=== PATIENT | female | born 1955 | race Caucasian/White ===

== ENCOUNTER 2024-01-14 14:10 | Outpatient (OUT) | payer MEDICARE, SELFPAY ==
--- NOTE | 2024-01-14 | XR_ITS ---
The [address] [address] Patient Name: JASON DE LA ROSA MRN: [id number] date: 1955 Sex: F Assigned Patient Location: [facility] Current Patient Location: Accession/Order Number: [id number] Exam Date: 01/14/2024 14:30 Report Date: 01/17/2024 07:44 At the request of: BRENDA DONG Procedure: XR chest 2V EXAMINATION: XR chest 2V HISTORY: Acute bronchitis, unspecified organism COMPARISON: No relevant comparison available. TECHNIQUE: PA and lateral FINDINGS: LUNGS: Focal 5.5 cm area of density in the right upper lung zone with some architectural distortion. The left lung is clear VASCULATURE: No increased pulmonary vasculature. PLEURA: No pneumothorax, effusion, or pleural thickening. CARDIAC: No cardiomegaly or cardiac silhouette abnormality. MEDIASTINUM: No visible mass or adenopathy. BONES: No fracture or visible bone lesion. OTHER: Negative. XR/XR chest 2V IMPRESSION: Focal right upper lobe infiltrate. In light of the architecture distortion, consider CT scan with contrast to evaluate for an underlying mass Electronically authenticated by: JOAQUIM CHAN Date: 01/17/2024 07:44
== END 2024-01-14 14:11 | disposition home or self-care (01) ==
PROVIDERS: PCP Family Medicine; Visit Provider Family Medicine
DX: J20.9 Acute bronchitis, unspecified (principal); R91.8 Other nonspecific abnormal finding of lung field
CPT/HCPCS: 71046

== ENCOUNTER 2024-02-04 08:51 | Outpatient (OUT) | payer MEDICARE, SELFPAY ==
--- NOTE | 2024-02-04 08:59 | CT_ITS ---
[address] [address] Patient Name: JASON DE LA ROSA MRN: [id number] date: 1955 Sex: F Assigned Patient Location: LAB Current Patient Location: Accession/Order Number: [id number] Exam Date: 02/04/2024 09:10 Report Date: 02/07/2024 07:54 At the request of: BRENDA DONG Procedure: CT chest w con EXAMINATION: CT chest w con HISTORY: Abnormal Chest Xray R93.89 COMPARISON: 03/15/2024 TECHNIQUE: Multi-planar CT images were created with IV contrast. Axial, Coronal, and Sagittal images. Dose reduction techniques were achieved by using automated exposure control and/or adjustment of mA and/or kV according to patient size and/or use of iterative reconstruction technique. FINDINGS: LUNGS: Irregularly shaped soft tissue density/mass is observed in the right upper lobe this measures 5.8 x 6.2 cm on axial image #33, irregularly-shaped extending from the superior hilum to the pleural surface. Additional areas of groundglass attenuation surrounding this density. 1.4 cm groundglass opacity superior segment of the left lower lobe. Additional 6 mm solid nodule right lower lobe axial image 67. Few scattered smaller patchy opacities are noted. PLEURA: No mass, effusion, or pneumothorax. VASCULATURE: No abnormality. HARRISON: Right hilar lymphadenopathy MEDIASTINUM: Pretracheal and subcarinal lymphadenopathy CARDIAC: No enlargement or pericardial effusion Coronary arteries: Moderate calcifications AORTA: No aneurysm or dissection. CHEST WALL: No mass or axillary adenopathy. BONES: No bone lesion or fracture. LIMITED ABDOMEN: No suspicious findings. Limited images of the upper abdomen. OTHER: Negative. CT/CT chest w con IMPRESSION: 6.2 cm irregularly shaped right upper lobe mass with mediastinal and hilar lymphadenopathy. Additional patchy and nodular densities detailed above. Malignancy should be excluded Electronically authenticated by: JOAQUIM CHAN Date: 02/07/2024 07:54
[2024-02-04 09:08] LABS: Estimated GFR (African America >60 (>=60); Estimated GFR (Non-African Ame >60 (>=60)
== END 2024-02-04 08:52 | disposition home or self-care (01) ==
LOC: LAB 08:51
PROVIDERS: PCP Family Medicine; Visit Provider Family Medicine
DX: R93.89 Abnormal findings on diagnostic imaging of other specified body structures (principal); R91.8 Other nonspecific abnormal finding of lung field
CPT/HCPCS: 36415; 71260; 82565; Q9967

== ENCOUNTER 2024-02-10 07:52 | Outpatient (OUT) | payer MEDICARE, SELFPAY ==
--- NOTE | 2024-02-10 08:02 | ECG_ITS ---
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
== END 2024-02-10 07:53 | disposition home or self-care (01) ==
LOC: PST 07:54
PROVIDERS: PCP Family Medicine; Visit Provider Internal Medicine
DX: Z01.810 Encounter for preprocedural cardiovascular examination (principal); R91.8 Other nonspecific abnormal finding of lung field
CPT/HCPCS: 93005

== ENCOUNTER 2024-02-15 10:51 | Day surgery (SDC) | payer MEDICARE, SELFPAY ==
[2024-02-10 08:47] VITALS: BP 131/79; PULSE 68; TEMP 36.4; O2SAT 97; BMI 27.1
[2024-02-15] VITALS (12 sets, daily range): BP systolic 133–164; BP diastolic 84–96; PULSE 84–101; TEMP 36.5–36.8; O2SAT 92–97; BMI 27.1
[2024-02-15] MEDS: LACTATED RINGER'S SOLUTION 1,000 ML 50 ML IV (11:27)
[2024-02-15] MEDS: EPINEPHrine 1 MG/10 ML SYRINGE INJ (12:35)
[2024-02-15] MEDS: LIDOCAINE HCL 1% 100 MG/10 ML MDV 5 ML INJ (12:35)
--- NOTE | 2024-02-15 12:55 | XR_ITS ---
The [address] [address] Patient Name: JASON DE LA ROSA MRN: [id number] date: 1955 Sex: F Assigned Patient Location: [facility] Current Patient Location: [facility] Accession/Order Number: [id number] Exam Date: 02/15/2024 13:07 Report Date: 02/15/2024 13:24 At the request of: MICHELLE GUTIERREZ Procedure: XR chest 1V EXAMINATION: XR chest 1V HISTORY: Right lung mass, s/p bronchoscopy with biopsies COMPARISON: XR chest 01/14/2024 FINDINGS: LUNGS: Stable masslike opacity within lateral right upper lobe with new mild surrounding haziness/edema. Left lung is clear. VASCULATURE: No increased pulmonary vasculature. PLEURA: No pneumothorax, effusion, or pleural thickening. CARDIAC: No cardiomegaly or cardiac silhouette abnormality. MEDIASTINUM: No visible mass or adenopathy. BONES: No fracture or visible bone lesion. OTHER: Negative. XR/XR chest 1V IMPRESSION: 1. Right upper lobe mass with suspected mild adjacent pulmonary edema versus atelectasis versus blood products. 2. No pneumothorax. Electronically authenticated by: CARIE VELÁZQUEZ Date: 02/15/2024 13:24
--- NOTE | 2024-02-15 12:57 | P.ON_ITS ---
Date of procedure: 02/15/24 Procedure: Procedure Flexible diagnostic bronchoscopy with bronchoalveolar lavage and transbronchial & endobronchial biopsies Indication Right lung mass Findings Abnormal bronchial mucosa of the right upper lobe Anesthesia 1. General anesthesia - please see their records 2. Lidocaine 1% - 5mL Specimens 1. Bronchoalveolar lavage of the right upper lobe 2. Transbronchial & endobronchial biopsies of the right upper lobe Estimated blood loss 10mL Complications None Fluoroscopy time 8 seconds Description Informed consent was obtained after risks, benefits, and alternatives were discussed with the patient.? Time out was initiated to confirm the correct patient, site, and procedure with all present voicing in the affirmative. Patient was brought to the operating room suite where noninvasive monitoring was utilized.? Sedation & anesthesia were administered by the anesthesia department- please refer to their records for further information.? Tape was placed over the patient's eyes to prevent spillage of secretions.? A laryngeal mask airway was placed by anesthesia.? The vocal cords were observed without gross evidence of nodules, ulcers, or masses.? 5mL of 1% lidocaine were instilled topically to the vocal cords.? The bronchoscope was then passed between the vocal cords and advanced through the trachea without any gross tracheal lesions. The bronchoscope reached the distal trachea where an additional 5mL of 1% lidocaine were instilled topically to the main larisa.? The main larisa was sharp without splaying or evidence of underlying mass. An endotracheal tube was placed by anesthesia. Due to the endotracheal tube, the larynx, vocal cords, and proximal trachea were unable to be examined. The distal trachea was visualized without any gross tracheal lesions. 5mL of 1% lidocaine were instilled topically to the main larisa.? The main larisa was sharp without splaying or evidence of underlying mass. The bronchoscope was then advanced through the right main bronchus to the right upper lobe, where the apical, posterior, and anterior segments were visualized. The tissue appeared abnormal with wide subcarini.? The bronchoscope was advanced through the bronchus intermedius to the right middle lobe or the medial and lateral segments visualized.? The bronchoscope was then advanced to the right lower lobe superior, medial, anterior, lateral, and posterior basilar segments.? No other endobronchial lesions or abnormal mucosa were seen. The bronchoscope was retracted to the main larisa and advanced through the left main bronchus to the left upper lobe where the upper division apicoposterior and anterior, as well as lingular superior and inferior segments were visualized.? The bronchoscope was then advanced into the left lower lobe where the superior, anteromedial, lateral, and posterior basilar segments visualized.? No endobronchial lesions, exudate, or other abnormalities were noted. Next, the bronchoscope was repositioned into the right upper lobe. Utilizing fluoroscopy, a transbronchial biopsy was obtained from the apical segment of the right upper lobe. The biopsy site bled and continued to bleed despite performing suction tamponade after 5 minutes. Epinephrine 1:10,000 10mL was instilled to the apical segment, with bleeding eventually stopping. Due to the extent of bleeding outside my direct line of site with the bronchoscope, no further transbronchial biopsies were attempted. An endobronchial biopsy of the right upper lobe subcarina was obtained - this site bleed as well. This area did respond to suction tamponade and bleeding ceased without need for further medication. Last, the posterior segment was better visualized with a sub- subcarina appearing widened and white (not pink). This area did not bleed. This area was observed for several minutes without any further bleeding. The bronchoscope was withdrawn.? Patient tolerated procedure well. The family was updated on her condition. A post-procedural chest x-ray was obtained to evaluate for any postoperative pneumothorax - the radiologist interpretation is pending at the time of this note. Surgeon: Vj Glass Condition: stable Disposition: same day
== END 2024-02-15 13:53 | disposition home or self-care (01) ==
PROVIDERS: PCP Family Medicine; Visit Provider Internal Medicine
PROC: (CPT 31624; principal; 2024-02-15 12:00)
DX: C34.11 Malignant neoplasm of upper lobe, right bronchus or lung (principal); R91.8 Other nonspecific abnormal finding of lung field; Z90.710 Acquired absence of both cervix and uterus
CPT/HCPCS: 31624; 31628; 71045; 76000; 88112; 88305; 88341; 88342; 99999; J0171; J1100; J1805; J2250; J2405; J2704

== ENCOUNTER 2024-02-18 12:48 | Outpatient (OUT) | payer MEDICARE, SELFPAY ==
--- NOTE | 2024-02-18 13:00 | RT_ITS ---
The [facility] Test Date: 2024-02-18 Pat Name: JASON DE LA ROSA Department: Room: - Gender: Female Napper Fixer: Ernestina Santana RRT : 1955 Requested By: Vj Glass Order Number: [id number] Reading MD: jV Glass Interpretive Statements Pulmonary function testing was completed according to ATS criteria. Findings were considered accurate and reproducible. Both pre- and post-bronchodilator values utilized for spirometry. Spirometry (based on pre-bronchodilator values): -FEV1/FVC: Low normal @ 73% -FEV1: Normal @ 98% -FVC: Normal @ 101% -TQW34-51%: Low normal @ 83% -There is no significant bronchodilator response. Lung volumes by plethysmography (based on pre-bronchodilator values): -RV: Increased @ 160% -TLC: Increased @ 126% Diffusion capacity: -DLCO: Normal @ 109% when corrected for Hb 13.3g/dL Flow-volume loop: -'Scooping/coving' of the expiratory limb Impressions: -Technically normal spirometry though it trends towards mild obstruction. An elevated RV and TLC suggest air trapping and hyperinflation respectively. The diffusion capacity is normal. Overall testing suggests a mild obstructive lung disease. Clinical correlation required. Electronically Signed On 02-23-2024 16:50:21 EDT by Vj Glass
[2024-02-18 13:03] LABS: Hemoglobin 13.3 g/dL (12.0-16.0)
[2024-02-18] MEDS: ALBUTEROL SULFATE 2.5 MG/3 ML VIAL NEB IH (13:56)
== END 2024-02-18 12:49 | disposition home or self-care (01) ==
LOC: CARD 12:49
PROVIDERS: PCP Family Medicine; Visit Provider Internal Medicine
DX: R91.8 Other nonspecific abnormal finding of lung field (principal)
CPT/HCPCS: 36415; 85018; 94060; 94726; 94729

== ENCOUNTER 2024-03-06 15:10 | Outpatient (OUT) | payer MEDICARE, SELFPAY ==
--- NOTE | 2024-03-06 15:14 | PE_ITS ---
The [address] [address] Patient Name: JASON DE LA ROSA MRN: [id number] date: 1955 Sex: F Assigned Patient Location: [facility] Current Patient Location: [facility] Accession/Order Number: [id number] Exam Date: 03/06/2024 15:00 Report Date: 03/09/2024 23:12 At the request of: MICHELLE GUTIERREZ Procedure: PET skull to mid thigh PET/CT: HISTORY: Lung cancer. COMPARISON: CT chest 02/04/2024. TECHNIQUE: The patient was injected with 11.35 mCi of F-18 fluorodeoxyglucose (FDG), and an emission scan was performed from the base of the skull to the mid thigh. Noncontrast CT was performed for attenuation correction and anatomic localization. The blood glucose level was 93 mg/dl. The uptake time was 51 minutes. FINDINGS: HEAD AND NECK: There is intense activity throughout the thyroid gland, image 57, SUV max 10.3 and the thyroid gland appears somewhat enlarged. There are a few small hypermetabolic right supraclavicular lymph nodes such as on image 59, SUV max 18.2 measuring 13 mm. CHEST: The SUVmax of the mediastinum = 3.0 using the patient's body weight as the normalization method. There is a hypermetabolic masslike opacity in the right upper lobe, image 78 with SUV max 9.8 measuring 5.3 x 4.8 cm. There is an area of more intense uptake in the superior aspect of the lesion on image 72 measuring 3.2 cm and the remainder of the opacity may be due to postobstructive atelectasis. Superior to the lesion there is also groundglass opacity with interlobular septal thickening which may be due to lymphangitic carcinomatosis. There is a groundglass nodule in the superior segment of the left lower lobe on image 82 measuring 10 mm with minimal uptake, SUV max 1.9 which is stable. A previously noted 6 mm right lower lobe pulmonary nodule is stable and below resolution limits of PET. There is also a stable left upper lobe nodule on image 86 measuring 3 mm. There are several hypermetabolic mediastinal and right hilar lymph nodes including for example a right paratracheal node on image 81 with SUV max 11.5 measuring 2.4 x 1.3 cm and a subcarinal node on image 93 with SUV max 10.5 measuring 2.4 x 1.3 cm. There is no definite hypermetabolic left hilar adenopathy. ABDOMEN AND PELVIS: There is a focus of increased activity in the right lobe of the liver on image 137 with SUV max 4.6. This corresponds to a hypodensity on CT measured at 5 mm. Otherwise physiologic distribution of activity. MUSCULOSKELETAL SYSTEM: Multiple hypermetabolic osseous lesions are seen in the cervical, thoracic and lumbar spine, right scapula, the ribs, sacrum, left iliac bone and right acetabulum. Index lesions include the left C2 vertebral body on image 60, SUV max 9 corresponding to a sclerotic lesion measuring 14 mm, the anterior L1 vertebral body on image 149, SUV max 12.6 measuring 1.7 x 0.9 cm and the sacrum on image 205 with SUV max 12.1 corresponding to a lytic lesion measuring 1.4 x 1.2 cm. PET/PET skull to mid thigh IMPRESSION: 1. Right upper lobe pulmonary malignancy with probable postobstructive atelectasis and adjacent lymphangitic carcinomatosis. 2. Right supraclavicular, mediastinal and right hilar kym metastases. 3. Multifocal osseous metastases. 4. Hypermetabolic focus in the right lobe of the liver consistent with a metastasis. 5. Minimally FDG avid groundglass nodule in the superior segment of the left lower lobe. This may be related to focal fibrosis, organizing pneumonia or malignancy such as adenocarcinoma. 6. Stable small additional pulmonary nodules which are below resolution limits of PET. 7. Enlarged thyroid gland with diffuse intense uptake which may be due to thyroiditis or Graves' disease. Electronically authenticated by: CARIE MAJANO Date: 03/09/2024 23:12
== END 2024-03-06 15:11 | disposition home or self-care (01) ==
LOC: PETCT 15:11
PROVIDERS: PCP Family Medicine; Visit Provider Internal Medicine
DX: R91.8 Other nonspecific abnormal finding of lung field (principal); R59.0 Localized enlarged lymph nodes; C34.11 Malignant neoplasm of upper lobe, right bronchus or lung
CPT/HCPCS: 78815; A9552

== ENCOUNTER 2024-03-14 07:25 | Outpatient (RCR) | payer MEDICARE, SELFPAY | END 2024-03-25 23:59 | disposition home or self-care (01) | LOC: HEMC 07:25 | PROVIDERS: PCP Family Medicine; Visit Provider Internal Medicine Hematology & Oncology | DX: C34.91 Malignant neoplasm of unspecified part of right bronchus or lung (principal); Z86.16 Personal history of COVID-19; C79.51 Secondary malignant neoplasm of bone; C77.9 Secondary and unspecified malignant neoplasm of lymph node, unspecified | CPT/HCPCS: G0463 ==

== ENCOUNTER 2024-03-16 12:01 | Outpatient (OUT) | payer MEDICARE, SELFPAY ==
--- OUTSIDE RECORDS SUMMARY | 2024-03-16 12:05 | XMS_ITS | CCD ---
Author Organization [facility] Care Team Providers Care Land Measurer Name Role Phone DR BRENDA DONG Primary Care Unavailable LETITIA, DR GUTIERREZ Admitting Unavailable LETITIA, DR GUTIERREZ Attending Unavailable LETITIA, DR GUTIERREZ Consulting Unavailable WEST, DR JOAQUIM Ashton Consulting Unavailable LETITIA, DR GUTIERREZ Primary Care Unavailable LETITIA, DR GUTIERREZ Admitting Unavailable LETITIA, DR GUTIERREZ Attending Unavailable LETITIA, DR GUTIERREZ Consulting Unavailable ZIEBER, DR CARIE Edwards Consulting Unavailable [facility], DO Zabala Attending Provider Quan [facility], Vj Attending Unavailable [facility], Vj Admitting Unavailable Problems Problem Classification Problem Date Documented Da te Episodic/Chronic Nonspecific chest pain (4 sources) Other chest pain; Translations: [OTHER CHEST PAIN] Onset: 06-10-2021 Episodic Superficial injury; contusion (4 sources) Contusion of left knee, sequela; Translations: [CONTUSION OF LEFT KNEE SEQUELA] Onset: 08-08-2021 Episodic Results Test Name Value Interpretation Reference Range Facil fredi Owusu 02-15-2024 L Specimen: [id number] Received: 02/16/24 Status: PEGGY Abreu Num: [id number] Spec Type: Surgical Subm Dr: Vj Glass DO Tissues: A Lung - Transbroncial Biopsy (RT UPPER LOBE MASS BX) Procedures: HE/2, Gross/Micro L4, CK5 6, CK20, CK 7, NAPSIN A, TTF1, p40 Age/ Patient Sex Location Account Attending Physician Isela De La Rosa 68/F LABELL [id number] Vj Glass DO SPEC NUM: [id number] RECD: 02/16/24 STATUS: PEGGY ABREU NUM: [id number] KIMBERLYN: 02/15/[address]: Vj Glass DO ENTERED: 02/16/[address]: Nadeem Nails SPEC TYPE: Surgical DEPT: [facility] ORDERED: HE/2, Gross/Micro L4, CK5 6, CK20, CK 7, NAPSIN A, TTF1, p40 ORDERED: HE/2, Gross/Micro L4, CK5 6, CK20, CK 7, NAPSIN A, TTF1, p40 Pathological Diagnosis Lesion, right lung, upper lobe, biopsy: Adenocarcinoma. Comment: Tumor cells are positive for cytokeratin 7 and Napsin, while being negative for cytokeratin 20, p40 and cytokeratin 5/6 immunostain. This immunoprofile is consistent with lung adenocarcinoma. Clinical correlation is required. Clinical Information Abnormal bronchial mucosa of the right upper lobe Gross Description Received in formalin labeled with the patient's name, date of and right upper lobe mass biopsy are 3 delicate meeks tissue fragments ranging from 0.4 x 0.1 x 0.1 cm to 0.3 x 0.1 x 0.1 cm, entirely submitted in A1. CPT Codes 98548 [id number] -------- -------- Specimen: [id number] Received: 02/16/24 Status: PEGGY Abreu Num: [id number] Spec Type: Surgical Subm Dr: Vj Glass DO Tissues: A Lung - Transbroncial Biopsy (RT UPPER LOBE MASS BX) Procedures: HE/2, Gross/Micro L4, CK5 6, CK20, CK 7, NAPSIN A, TTF1, p40 -------- Patient: Isela De La Rosa [id number] (Continued) -------- Signed (signature on file) Rom Garcia MD 02/23/241657 Normal [facility] L Specimen: [id number] Received: 02/16/24 Status: PEGGY Abreu Num: [id number] Spec Type: Cytology Subm Dr: Vj Glass DO Tissues: A [facility] ([facility]) Procedures: HE/2, Gross/Micro L4, Cyto Prepstain, PAPSTN Age/ Patient Sex Location Account Attending Physician Isela De La Rosa 68/F LABELL [id number] Vj Glass DO SPEC NUM: [id number] RECD: 02/16/24 STATUS: PEGGY ABREU NUM: [id number] KIMBERLYN: 02/15/24-[address]: Vj Glass DO ENTERED: 02/16/[address]: Jesu,Lab SPEC TYPE: Cytology DEPT: DENISSE SHI ENTERED BY: [id number] RECV BY: [id number] ORDERED: HE/2, Gross/Micro L4, Cyto Prepstain, PAPSTN ORDERED: HE/2, Gross/Micro L4, Cyto Prepstain, PAPSTN Pathological Diagnosis Right lung, bronchial washings: Negative for malignant cells. Clinical Information Right lung mass Gross Description Received fresh is 8 ml red cloudy unfixed fluid for cytology said to have been obtained as Right upper lobe lavage. ThinPrep and cell block preparations are prepared for microscopic examination.( KS/vt) CPT Codes 28091 -------- -------- Specimen: [id number] Received: 02/16/24 Status: PEGGY Lois Num: [id number] Spec Type: Cytology Subm Dr: Vj Glass DO Tissues: A ANGEL (JEAN CLAUDE) Procedures: HE/2, Gross/Micro L4, Cyto Prepstain, PAPSTN -------- Patient: JudIsela [id number] (Continued) -------- Signed (signature on file) Rom Garcia MD 02/23/24 1536 Normal [facility] NM STRESS/REST MULTIon 06-10 NM STRESS/REST MULTI Patient: ISELA DE LA ROSA Exam Date: 06/10/2021 : 1955 Gender:F Ordering : DR BRENDA DONG . Admission #: [id number] Family : Order #: [id number] CLICK HERE TO VIEW EXAM RADIOLOGY REPORT PROCEDURE: RADIONUCLIDE IMAGING STRESS/REST MULTI COMPARISON: None. INDICATIONS: Chest pain TECHNIQUE: Exam Description: Stress/Rest one day protocol gated SPECT Rest Imagin.7 mCi Tc-99m Cardiolite IV on 06/10/2021 Stress Imaging 32.1 mCi Tc-99m Cardiolite IV on 06/10/2021 Exercise Protocol: René Heart Rate (bpm): Rest: 68 Max: 134 PMHR: 86 Blood Pressure: Rest: 120/84 Max: 200/104 Exercise Time: Minutes: 5 Seconds: 59 Stage Reached: Stage: 2 Mets 7 Symptoms: none Rest and peak stress ECG findings were non-diagnostic and the exercise portion of the study was normal per attending physician Dr. Glass due to ST segment depression interolateral leads, but did not meet diagnostic criteria. For more details please see separate cardiac stress test report. FINDINGS: QUALITY OF STUDY: Excellent. PERFUSION DEFECT: None. LOCATION: N/A SIZE: N/A. SEVERITY: N/A. TYPE: N/A. WALL MOTION: Normal. LV SIZE: Normal. 64 mL. TID / TCD: None; 0.8 LVEF: Normal. Calculated EF 78%. SUMMARY: Myocardial perfusion imaging study is NORMAL. CONCLUSION: 1. No reversible ischemia 2. Nondiagnostic exercise test Dictated by: Joaquim Maravilla MD on 06/10/2021 at 12:58 Approved by: Joaqumi Maravilla MD on 06/10/2021 at 12:59 Normal [facility] Encounters Encounter Date Encounter Type Care Provider Facility Start: 02-15-2024 End: 02-15-2024 [facility] Vj Glass [facility] Work Phone: Start: 02-15-2024 End: 02-15-2024 Departed Referred DO Vj Glass [facility] Work Phone: [facility] Start: 08-08-2021 End: 08-09-[address] BRENDA DONG Facility:[facility] Start: 06-10-2021 End: 06-11-[address] BRENDA DONG Facility:[facility] Payers Date Payer Category Payer Self-pay 1958 Unknown [id number] 1955 Unknown [id number] 1955 Unknown [id number] Private Health Insurance [employer] Insurance [facility] [place] [id number] Social History Date Type Detail Facility Tobacco smoking stat [facility] Unknown if ever smoked [facility] Work Phone: Start: 1955 Sex Assigned At Female F [facility] Clinical Note 08-08-2021 Note Date & Type Note Facility 08-08-2021 Note PROCEDURE: XR KNEE L T 4V or > HISTORY: Contusion of left knee ; anterior knee and borges pain since falling 3 days ago COMPARISON: None. FINDINGS: BONES:No acute fracture or dislocation. Small-moderate periarticular degenerative osteophytes along all 3 compartments. Mild narrowing of the medial compartment. Small, separate corticated ossification adjacent the intercondylar spines of the tibial plateau. SOFT TISSUES:No visible soft tissue swelling. EFFUSION:None visible. OTHER: Negative. IMPRESSION: 1. No acute bone abnormality or joint effusion. 2. Mild to moderate degenerative joint disease. Electronically authenticated by: CARIE VELÁZQUEZ Date: 2021-08-08 14:54 [facility] Evaluation note Note Date & Type Note Facility Evaluation note No assessment information availa ble [facility] Work Phone: Summary Purpose Family History No Family History Records FoundNo Family History Records Found Advance Directives No Advanced Directives Records FoundNo Advanced Directives Records Found Additional Source Comments INFORMATION SOURCE (unrecogn ized section and content) DATE CREATED AUTHOR 08/13/2021 [facility] DATE CREATED AUTHOR AUTHOR'S PATRICIA ATLUIZA 02/26/[address] [facility] Care Teams (unrecognized sec tion and content) Team Status: Inactive Member Role Status Dates Vj CROWLEY DO Attending Provider Active Start: February 15, 2024 End: February 15, 2024 Goals (unrecognized section and content) Goals may be documented in a n alternate section FOR RECORDS PERTAINING TO PATIENTS WHO ARE OR HAVE BEEN ENROLLED IN A CHEMICAL DEPENDENCY/SUBSTANCEABUSE PROGRAM, SOME INFORMATION MAY BE OMITTED. This clinical summary was aggregated from multiple sources. Caution should be exercised in using it in the provision of clinical care. This summary normalizes information from multiple sources, and as a consequence, information in this document may materially change the coding, format and clinical context of patient data. In addition, data may be omitted in some cases. CLINICAL DECISIONS SHOULD BE BASED ON THE PRIMARY CLINICAL RECORDS. [employer] provides no warranty or guarantee of the accuracy or completeness of information in this document.
--- NOTE | 2024-03-16 12:19 | MR_ITS ---
The [address] [address] Patient Name: JASON DE LA ROSA MRN: [id number] date: 1955 Sex: F Assigned Patient Location: LAB Current Patient Location: LAB Accession/Order Number: [id number] Exam Date: 03/16/2024 12:40 Report Date: 03/16/2024 13:39 At the request of: MIYA ALAN Procedure: MR head/brain wo/w con EXAM: MR head/brain wo/w con CLINICAL INDICATION: Lung Cancer COMPARISON: FDG PET/CT 03/06/2024. TECHNIQUE/PROTOCOL: Standard pre and postcontrast protocol brain MRI performed (Sagittal T1 with axial T1, T2, GRE, FLAIR, and diffusion-weighted imaging). CONTRAST: 13 mL of Dotarem. FINDINGS: No restricted diffusion, extra-axial fluid collection, hydrocephalus, midline shift, or other mass effect. Intracranial flow voids are maintained. Subtle patchy hyperintense T2/FLAIR periventricular and subcortical foci are likely on the basis of chronic microvascular angiopathic changes. Mild symmetric global volume loss without lobar predominance. Commensurate ventricular system caliber prominence. No abnormal parenchymal, leptomeningeal, or dural enhancement. Peripherally enhancing marrow replacing osseous lesion involves the C3 vertebral body and measures approximately 1.0 x 1.0 cm. No soft tissue abnormalities. Paranasal sinuses and mastoid air cells are well-aerated. MR/MR head/brain wo/w con IMPRESSION: 1. No acute intracranial process or abnormal enhancement. No evidence of intracranial metastasis. 2. A 1.0 cm peripherally enhancing and marrow replacing osseous lesion in the C3 vertebral body most likely represents osseous metastasis. Electronically authenticated by: LORENZO JONES Date: 03/16/2024 13:39
[2024-03-16 12:33] LABS: Estimated GFR (African America >60 (>=60); Estimated GFR (Non-African Ame >60 (>=60)
== END 2024-03-16 12:02 | disposition home or self-care (01) ==
LOC: LAB 12:01
PROVIDERS: PCP Family Medicine; Visit Provider Internal Medicine Hematology & Oncology
DX: C34.91 Malignant neoplasm of unspecified part of right bronchus or lung (principal)
CPT/HCPCS: 36415; 70553; 82565; 84520; A9575

== ENCOUNTER 2024-04-03 10:59 | Outpatient (OUT) | payer MEDICARE, SELFPAY ==
--- OUTSIDE RECORDS SUMMARY | 2024-04-03 11:25 | XMS_ITS | CCD ---
Author Organization [facility] Care Team Providers Care Operations Controller Name Role Phone DR BRENDA DONG Primary Care Unavailable LETITIA, DR GUTIERREZ Admitting Unavailable LETITIA, DR GUTIERREZ Attending Unavailable LETITIA, DR GUTIERREZ Consulting Unavailable WEST, DR JOAQUIM Ashton Consulting Unavailable LETITIA, DR GUTIERREZ Primary Care Unavailable LETITIA, DR GUTIERREZ Admitting Unavailable LETITIA, DR GUTIERREZ Attending Unavailable LETITIA, DR GUTIERREZ Consulting Unavailable ZIEBER, DR CARIE Edwards Consulting Unavailable [place], DO Zabala Attending Provider Quan [facility], Vj Attending Unavailable [place], Vj Admitting Unavailable Problems Problem Classification Problem Date Documented Da te Episodic/Chronic Nonspecific chest pain (4 sources) Other chest pain; Translations: [OTHER CHEST PAIN] Onset: 06-10-2021 Episodic Superficial injury; contusion (4 sources) Contusion of left knee, sequela; Translations: [CONTUSION OF LEFT KNEE SEQUELA] Onset: 08-08-2021 Episodic Results Test Name Value Interpretation Reference Range Facil fredi Owusu 02-15-2024 L Specimen: [id number] Received: 02/16/24 Status: PEGGY Abreu Num: [id number] Spec Type: Surgical Subm Dr: Vj Glass DO Tissues: A Lung - Transbroncial Biopsy (RT UPPER LOBE MASS BX) Procedures: HE/2, Gross/Micro L4, CK5 6, CK20, CK 7, NAPSIN A, TTF1, p40 Age/ Patient Sex Location Account Attending Physician Isela De La Rosa 68/F LABELL [id number] Vj Glass DO SPEC NUM: [id number] RECD: 02/16/24 STATUS: PEGGY ABREU NUM: [id number] KIMBERLYN: 02/15/[address]: Vj Glass DO [...] cm, entirely submitted in A1. CPT Codes 71802 89114 [id number] -------- -------- Specimen: [id number] Received: 02/16/24 Status: PEGGY Abreu Num: [id number] Spec Type: Surgical Subm Dr: Vj Glass DO Tissues: A Lung - Transbroncial Biopsy (RT UPPER LOBE MASS BX) Procedures: HE/2, Gross/Micro L4, CK5 6, CK20, CK 7, NAPSIN A, TTF1, p40 -------- Patient: Isela De La Rosa [id number] (Continued) -------- Signed (signature on file) Rom Garcia MD 02/23/241657 Normal [facility] L Specimen: [id number] Received: 02/16/24 Status: PEGGY Abreu Num: [id number] Spec Type: Cytology Subm Dr: Vj Glass DO Tissues: A [facility] Procedures: HE/2, Gross/Micro L4, Cyto Prepstain, PAPSTN Age/ Patient Sex Location Account Attending Physician sIela De La Rosa 68/F LABE[facility] [id number] Vj Glass DO SPEC NUM: [id number] RECD: 02/16/24 STATUS: PEGGY ABREU NUM: [id number] KIMBERLYN: 02/15/24-[address]: Vj Glass DO ENTERED: 02/16/[address]: Jesu,Lab SPEC TYPE: Cytology DEPT: DENISSE SHI ENTERED BY: [id number] RECV BY: [id number] ORDERED: HE/2, Gross/Micro L4, Cyto Prepstain, PAPSTN ORDERED: HE/2, Gross/Micro L4, Cyto Prepstain, PAPSTN Pathological Diagnosis Right lung, bronchial washings: Negative for malignant cells. Clinical Information Right lung mass Gross Description Received fresh is 8 ml red cloudy unfixed fluid for cytology said to have been obtained as Right upper lobe lavage. ThinPrep and cell block preparations are prepared for microscopic examination.( TN/pa) CPT Codes 09905 -------- -------- Specimen: [id number] Received: 02/16/24 Status: PEGGY Lois Num: [id number] Spec Type: Cytology Subm Dr: Vj Glass DO Tissues: A ANGEL (JEAN CLAUDE) Procedures: HE/2, Gross/Micro L4, Cyto Prepstain, PAPSTN -------- Patient: JudIsela [id number] (Continued) -------- Signed (signature on file) Rom Garcia MD 02/23/24 1536 Normal [facility] NM STRESS/REST MULTIon 06-10 NM STRESS/REST MULTI Patient: ISELA DE LA ROSA Exam Date: 06/10/2021 : 1955 Gender:F Ordering : DR BRENDA DONG . Admission #: [id number] Family : Order #: [id number] CLICK HERE TO VIEW EXAM RADIOLOGY REPORT [...] MD on 06/10/2021 at 12:58 Approved by: Joaquim Maravilla MD on 06/10/2021 at 12:59 Normal [facility] Encounters Encounter Date Encounter Type Care Provider Facility Start: 02-15-2024 End: 02-15-2024 [facility] Vj Glass [facility] Work Phone: Start: 02-15-2024 End: 02-15-2024 Departed Referred DO Vj Glass [facility] Work Phone: [facility] Start: 08-08-2021 End: 08-09-[address] BRENDA DONG Facility:[facility] Start: 06-10-2021 End: 06-11-[address] BRENDA DONG Facility:[facility] Payers Date Payer Category Payer Self-pay 1958 Unknown [id number] 1955 Unknown [id number] 1955 Unknown [id number] Private Health Insurance [employer] [facility] [id number] Social History Date Type Detail Facility Tobacco smoking stat [facility] Unknown if ever smoked [facility] Work Phone: Start: 1955 Sex Assigned At Female F [facility] Clinical Note 08-08-2021 Note Date & Type [...] VELÁZQUEZ Date: 2021-08-08 14:54 [facility] Evaluation note Note Date & Type Note Facility Evaluation note No assessment information availa ble [facility] Work Phone: Summary Purpose Family History No Family History Records FoundNo Family History Records Found Advance Directives No Advanced Directives Records FoundNo Advanced Directives Records Found Additional Source Comments INFORMATION SOURCE (unrecogn ized section and content) DATE CREATED AUTHOR 08/13/2021 [facility] DATE CREATED AUTHOR AUTHOR'S PATRICIA ATLUIZA 02/26/2024 [facility] Care Teams (unrecognized sec [...] BE BASED ON THE PRIMARY CLINICAL RECORDS. [employer] provides no warranty or guarantee of the accuracy or completeness of information in this document.
[2024-04-03 12:04] LABS: Basophils Percent Auto 0.1 % (0.2-2.0); Eosinophils Absolute Auto 0.1 10^3/uL (0.0-0.7); Eosinophils Percent Auto 0.7 % (0.9-7.0); Hematocrit 43.2 % (36.0-48.0); Immature Granulocytes Abs Auto 0.03 10^3/uL (0.00-0.03); Immature Granulocytes Pct Auto 0.4 % (0.0-0.5); Lymphocytes Absolute Auto 1.4 10^3/uL (1.2-3.8); Lymphocytes Percent Auto 18.4 % (20.5-60.0); Mean Corpuscular HGB Conc 32.4 g/dL (29.9-35.2); Mean Corpuscular Hemoglobin 28.6 pg (26.7-34.0); Mean Corpuscular Volume 88.2 fL (81.0-99.0); Mean Platelet Volume 10.6 fL (9.5-13.5); Monocytes Absolute Auto 0.8 10^3/uL (0.3-0.8); Monocytes Percent Auto 10.1 % (1.7-12.0); Neutrophils Absolute Auto 5.3 10^3/uL (1.4-6.5); Neutrophils Percent Auto 70.3 % (43.0-75.0); Platelet Count 261 10^3/uL (150-450); Red Cell Distribution Width 12.9 % (11.0-15.0); White Blood Count 7.6 10^3/uL (4.0-11.0)
[2024-04-03 12:19] LABS: Alanine Aminotransferase 21 U/L (14-59); Albumin Globulin Ratio 0.8; Albumin Level 3.7 g/dL (3.4-5.0); Alkaline Phosphatase 185 U/L (46-116); Anion Gap 10.5; Aspartate Amino Transferase 14 U/L (15-37); BUN Creatinine Ratio 18.1; Bilirubin Total 0.2 mg/dL (0.2-1.0); Carbon Dioxide 31.7 mmol/L (21.0-32.0); Chloride 98 mmol/L (98-107); Estimated GFR (African America >60 (>=60); Estimated GFR (Non-African Ame >60 (>=60); Globulin 4.4 g/dL; Glucose 124 mg/dL (74-106); Potassium 4.2 mmol/L (3.5-5.1); Sodium 136 mmol/L (136-145); Thyroid Stimulating Hormone 3.678 uIU/mL (0.358-3.740); Total Protein 8.1 g/dL (6.4-8.2)
[2024-04-04 05:07] LABS: HBsAg Screen Negative (Negative); Hep B Core Ab, Tot Negative (Negative); Hepatitis B Surf Ab Quant <3.5 mIU/mL (Immunity>10)
== END 2024-04-03 11:00 | disposition home or self-care (01) ==
PROVIDERS: PCP Family Medicine; Visit Provider Internal Medicine Hematology & Oncology
DX: C34.11 Malignant neoplasm of upper lobe, right bronchus or lung (principal); R11.2 Nausea with vomiting, unspecified; Z51.11 Encounter for antineoplastic chemotherapy; C77.1 Secondary and unspecified malignant neoplasm of intrathoracic lymph nodes; C78.7 Secondary malignant neoplasm of liver and intrahepatic bile duct; C79.51 Secondary malignant neoplasm of bone
CPT/HCPCS: 36415; 80053; 83735; 84443; 85025; 86317; 86704; 87340

== ENCOUNTER 2024-04-18 07:25 | Outpatient (RCR) | payer MEDICARE, SELFPAY ==
--- NOTE | 2024-04-13 11:21 | PC.NURSE ---
1000: Pt. to [facility] amb. for chemo teach. This RN reviews chemotherapy regimen, medications, side effects, and nutrition. Pt. relays understanding. Pt. given samples of ensure and coupons. Lab in for blood draw. 1040: Pt. without further questions or concerns. D/c'd amb. to home.
[2024-04-13 11:43] LABS: Basophils Percent Auto 0.6 % (0.2-2.0); Eosinophils Absolute Auto 0.1 10^3/uL (0.0-0.7); Eosinophils Percent Auto 2.4 % (0.9-7.0); Hematocrit 44.1 % (36.0-48.0); Hemoglobin 14.4 g/dL (12.0-16.0); Immature Granulocytes Abs Auto 0.06 10^3/uL (0.00-0.03); Immature Granulocytes Pct Auto 1.3 % (0.0-0.5); Lymphocytes Absolute Auto 1.1 10^3/uL (1.2-3.8); Lymphocytes Percent Auto 22.7 % (20.5-60.0); Mean Corpuscular HGB Conc 32.7 g/dL (29.9-35.2); Mean Corpuscular Hemoglobin 28.8 pg (26.7-34.0); Mean Corpuscular Volume 88.2 fL (81.0-99.0); Mean Platelet Volume 10.1 fL (9.5-13.5); Monocytes Absolute Auto 0.5 10^3/uL (0.3-0.8); Monocytes Percent Auto 10.5 % (1.7-12.0); Neutrophils Absolute Auto 2.9 10^3/uL (1.4-6.5); Neutrophils Percent Auto 62.5 % (43.0-75.0); Platelet Count 250 10^3/uL (150-450); Red Cell Distribution Width 13.2 % (11.0-15.0); White Blood Count 4.7 10^3/uL (4.0-11.0)
[2024-04-13 11:52] LABS: Alanine Aminotransferase 28 U/L (14-59); Albumin Globulin Ratio 0.9; Albumin Level 3.7 g/dL (3.4-5.0); Alkaline Phosphatase 194 U/L (46-116); Anion Gap 12.1; Aspartate Amino Transferase 20 U/L (15-37); BUN Creatinine Ratio 9.7; Bilirubin Total 0.3 mg/dL (0.2-1.0); Carbon Dioxide 28.6 mmol/L (21.0-32.0); Chloride 104 mmol/L (98-107); Estimated GFR (African America >60 (>=60); Estimated GFR (Non-African Ame >60 (>=60); Glucose 98 mg/dL (74-106); Magnesium 1.9 mg/dL (1.8-2.4); Potassium 3.7 mmol/L (3.5-5.1); Sodium 141 mmol/L (136-145); TSH W/ REFLEX FT4 2.788 uIU/mL (0.358-3.740); Total Protein 7.7 g/dL (6.4-8.2)
[2024-04-14 05:08] LABS: HBsAg Screen Negative (Negative); Hep B Core Ab, Tot Negative (Negative); Hepatitis B Surf Ab Quant <3.5 mIU/mL (Immunity>10)
--- NOTE | 2024-04-17 11:02 | PC.NURSE ---
1100 Arrival ambulatory for PICC insertion with [facility], also to get injection of b12. alert and oriented.
[2024-04-17] MEDS: CYANOCOBALAMIN 1,000 MCG/ML VIAL 1000 MCG IM (11:31)
--- NOTE | 2024-04-17 11:35 | PC.NURSE ---
1125 PICC line insertion completed by [facility] staff. intact left upper arm, see insertion documentation, patient tolerated well. site clean and dry. verbalizes understanding for care and maintanence of PICC line. 1130 Vit B12 IM as ordered rt deltoid, tolerated well 1135 Released ambulatory
[2024-04-18 09:30] VITALS: BP 128/82; PULSE 78; TEMP 36.7; O2SAT 97
[2024-04-18 10:00] LABS: Basophils Percent Auto 0.6 % (0.2-2.0); Eosinophils Absolute Auto 0.1 10^3/uL (0.0-0.7); Eosinophils Percent Auto 1.5 % (0.9-7.0); Hematocrit 39.2 % (36.0-48.0); Hemoglobin 12.9 g/dL (12.0-16.0); Immature Granulocytes Abs Auto 0.01 10^3/uL (0.00-0.03); Immature Granulocytes Pct Auto 0.2 % (0.0-0.5); Lymphocytes Absolute Auto 1.3 10^3/uL (1.2-3.8); Mean Corpuscular HGB Conc 32.9 g/dL (29.9-35.2); Mean Corpuscular Hemoglobin 28.9 pg (26.7-34.0); Mean Corpuscular Volume 87.9 fL (81.0-99.0); Mean Platelet Volume 11.7 fL (9.5-13.5); Monocytes Absolute Auto 0.6 10^3/uL (0.3-0.8); Monocytes Percent Auto 10.8 % (1.7-12.0); Neutrophils Absolute Auto 3.5 10^3/uL (1.4-6.5); Neutrophils Percent Auto 63.9 % (43.0-75.0); Platelet Count 193 10^3/uL (150-450); Red Blood Count 4.46 10^6/uL (4.20-5.40); White Blood Count 5.4 10^3/uL (4.0-11.0)
[2024-04-18 10:27] LABS: Alanine Aminotransferase 20 U/L (14-59); Albumin Globulin Ratio 0.9; Albumin Level 3.6 g/dL (3.4-5.0); Alkaline Phosphatase 191 U/L (46-116); Anion Gap 12.9; Aspartate Amino Transferase 16 U/L (15-37); BUN Creatinine Ratio 11.9; Bilirubin Total 0.3 mg/dL (0.2-1.0); Calcium 9.1 mg/dL (8.5-10.1); Carbon Dioxide 24.9 mmol/L (21.0-32.0); Chloride 103 mmol/L (98-107); Estimated GFR (African America >60 (>=60); Estimated GFR (Non-African Ame >60 (>=60); Globulin 3.9 g/dL; Glucose 113 mg/dL (74-106); Magnesium 2.1 mg/dL (1.8-2.4); Potassium 3.8 mmol/L (3.5-5.1); Sodium 137 mmol/L (136-145); Thyroid Stimulating Hormone 4.868 uIU/mL (0.358-3.740); Total Protein 7.5 g/dL (6.4-8.2)
[2024-04-18] MEDS: DEXAMETHASONE SODIUM PHOSPHATE 10 MG in 0.9 % SODIUM CHLORIDE 100 ML 303 MG IV (10:47)
[2024-04-18] MEDS: PALONOSETRON HCL 0.25 MG/5 ML VIAL IV (10:59)
[2024-04-18] MEDS: APREPITANT 130 MG in 0.9 % SODIUM CHLORIDE 100 ML 236 MG IV (11:14)
[2024-04-18] MEDS: PEMBROLIZUMAB 200 MG in 0.9 % SODIUM CHLORIDE 100 ML 216 MG IV (11:48)
[2024-04-18] MEDS: SODIUM CHLORIDE 0.9% IV (12:49)
[2024-04-18] MEDS: PEMETREXED DISODIUM IV (12:49)
[2024-04-18] MEDS: ZOLEDRONIC ACID 4 MG in 0.9 % SODIUM CHLORIDE 100 ML 210 MG IV (13:02)
--- NOTE | 2024-04-18 13:20 | PC.NURSE ---
0930: Pt to [facility] amb. accompanied by daughter. Weight obtained. Seated in recliner. Pt. verbalizes anxiety with first day of chemo. Comfort and reassurance provided. VSS. Pt. with existing PICC line to left upper arm. Flushes easily and able to aspirate blood easily for ordered labs. Site without s&s of infection or infiltration. Assessment completed. Warm blanket provided. 1010: Dr. Chester to chairside for scheduled office visit. 1047: Pre-chemo meds initiated at this time as ordered. Pt. without c/o or needs. 1148: All pre-meds completed. IV Keytruda initiated. Lunch tray ordered for pt. Daughter remains present.
--- NOTE | 2024-04-18 13:29 | PC.NURSE ---
1220: Keytruda infusion completed. IV Carboplatin started at this time. Eating lunch. Denies c/o. 1249: Carbo completed. Pt. without s&s of reaction. Alimta infusion initiated at this time.
[2024-04-18 13:55] VITALS: BP 122/78; PULSE 77; TEMP 36.7; O2SAT 98
--- NOTE | 2024-04-18 14:11 | PC.NURSE ---
1340: All ordered meds. infused without s&s of adverse reaction. Instructed pt and pts. daughter symptoms to watch for if delayed reaction occurs, jitendra. elevated temp. All relay understanding. Pt.'s daughter taught how to flush patients PICC line. Daughter returns demonstration successfully. Saline flushes, alcohol preps and chg caps provided. Dressing to be changed next week after M.D. visit. Pt. without questions or concerns. 1355: VSS. Pt. d/c'd amb. to home with daughter.
== END 2024-04-24 23:59 | disposition home or self-care (01) ==
LOC: HEMC 07:25
PROVIDERS: PCP Family Medicine; Visit Provider Internal Medicine Hematology & Oncology
DX: Z51.11 Encounter for antineoplastic chemotherapy (principal); C34.11 Malignant neoplasm of upper lobe, right bronchus or lung; R11.2 Nausea with vomiting, unspecified; C77.1 Secondary and unspecified malignant neoplasm of intrathoracic lymph nodes; C78.7 Secondary malignant neoplasm of liver and intrahepatic bile duct; C79.51 Secondary malignant neoplasm of bone; Z86.16 Personal history of COVID-19; Z90.710 Acquired absence of both cervix and uterus; E04.9 Nontoxic goiter, unspecified
CPT/HCPCS: 36415; 36569; 36592; 80053; 83735; 84443; 85025; 86317; 86704; 87340; 96366; 96367; 96368; 96372; 96375; 96413; 96417; 99211; C1887; G0463; J0185; J1100; J2469; J3420; J3489; J9045; J9271; J9305

== ENCOUNTER 2024-04-20 10:06 | Inpatient (IN) | payer MEDICARE, SELFPAY ==
[2024-04-20] VITALS (22 sets, daily range): BP systolic 107–145; BP diastolic 67–96; PULSE 66–122; TEMP 36.6–38.5; O2SAT 91–100; BMI 27.4
--- NOTE | 2024-04-20 10:13 | ECG_ITS ---
The [facility] Test Date: 2024-04-20 Pat Name: JASON DE LA ROSA Department: Room: [facility] [place] Gender: Female Assistant Curator: : 1955 Requested By: BRENDA DONG Order Number: [id number] Reading MD: BRENDA DONG Measurements Intervals [place] Rate: 96 P: 16 MN: 150 QRS: 37 QRSD: 72 T: 56 QT: 340 QTc: 393 Interpretive Statements 1100 Sinus rhythm 4068 Nonspecific Twave abnormality 9130 borderline ECG No previous ECG available for comparison
--- NOTE | 2024-04-20 10:20 | ED_ITS ---
HPI HPI - General Adult General Chief complaint: Fever Stated complaint: FEVER, SHAKY, NAUSEA Time Seen by Provider: 04/20/24 10:11 Source: patient Mode of arrival: Wheelchair History of Present Illness HPI narrative: 68-year-old female presents for possible fever. She checked her temperature in her ear at home and she states it was 100.2. That was at 9 AM and then she took a Tylenol 3 and came here. She did not have a fever upon arrival to triage. She had a cough last week but that went away. She does not complain of abdominal pain or diarrhea or dysuria. She has had her first 2 doses of chemotherapy for lung cancer, yesterday and the day before. Related Data Home Medications ?Medication ?Instructions ?Recorded ?Confirmed multivitamin (Daily Multi-Vitamin 1 tab PO DAILY 02/10/24 02/15/24 tablet) acetaminophen 300 mg-codeine 30 mg 2 tab PO Q8H PRN pain 04/20/24 04/20/24 tablet amoxicillin 875 mg-potassium 1 tab PO BID 04/20/24 04/20/24 clavulanate 125 mg tablet fentanyl 25 mcg/hr transdermal 1 patch topical Q72H 04/20/24 04/20/24 patch ibuprofen 600 mg tablet 600 mg PO Q8H PRN pain 04/20/24 04/20/24 ondansetron 4 mg disintegrating 4 mg PO Q8H PRN nausea and vomiting 04/20/24 04/20/24 tablet prochlorperazine maleate 10 mg 10 mg PO Q8H PRN nausea and 04/20/24 04/20/24 tablet vomiting Allergies Allergy/AdvReac Type Severity Reaction Status Date / Time No Known Drug Allergies Allergy Verified 02/10/24 08:16 Opioid HPI Opioid Management Most Recent Opioid Data: Last SEP Pain Assessment 04/20/24 12:09 Review of Systems ROS Narrative A ten point review of systems is negative except as noted above. [facility] Medical History (Updated 04/20/24 @ 13:14 by Lukas Desai MD) Arthritis ?M19.90 - Unspecified osteoarthritis, unspecified site (ICD-10) Situational depression ?F43.21 - Adjustment disorder with depressed mood (ICD-10) Cough ?R05.9 - Cough, unspecified (ICD-10) COVID-19 ?U07.1 - COVID-19 (ICD-10) Hilar lymphadenopathy ?R59.0 - Localized enlarged lymph nodes (ICD-10) Lung mass ?R91.8 - Other nonspecific abnormal finding of lung field (ICD-10) Surgical History (Updated 02/10/24 @ 08:22 by Daria Ray NP) History of surgery on arm ?Z98.890 - Other specified postprocedural states (ICD-10) History of hysterectomy ?Z90.710 - Acquired absence of both cervix and uterus (ICD-10) History of section ?Z98.891 - History of uterine scar from previous surgery (ICD-10) Family History (Updated 02/10/24 @ 08:22 by Daria Ray NP) Other Family history of COPD (chronic obstructive pulmonary disease) Family history of aneurysm Family history of heart disease Family history of lung cancer Family history of myocardial infarction Social History (Updated 02/10/24 @ 08:17 by Daria Ray NP) Within the past year, how often did you have a drink containing alcohol: never Score interpretation: A score less than 3 is consistent with normal alcohol consumption. 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 General: The patient appears in no apparent distress. Patient is resting comfortably on cart. Skin: Warm, dry, no pallor noted. There is no rash noted. Head: Normocephalic, atraumatic Eye: Normal conjunctiva, no drainage Ears, Nose, Mouth, and Throat: oral mucosa is moist. Nares patent. Cardiovascular: Regular Rate and Rhythm Respiratory: Patient is in no distress, no accessory muscle use, lungs are clear to auscultation, no wheezing, rales or rhonchi Back: non-tender GI: Soft and nontender Musculoskeletal: The patient has no evidence of calf tenderness, no pitting edema, symmetrical pulses noted bilaterally Neurological: A&O, normal speech Psychiatric: Cooperative Constitutional Vital Signs, click to edit/add: Last Vital Signs Temp 100.1 F 04/20/24 12:32 Pulse 92 H 04/20/24 11:10 Resp 21 H 04/20/24 11:10 BP 122/75 04/20/24 11:00 Pulse Ox 93 L 04/20/24 11:10 O2 Del Method Room Air 04/20/24 10:09 Course Vital Signs Vital signs: Vital Signs Temperature 98.6 F 04/20/24 10:09 Pulse Rate 122 H 04/20/24 10:09 Respiratory Rate 20 04/20/24 10:09 Blood Pressure 133/96 H 04/20/24 10:09 Pulse Oximetry 95 04/20/24 10:09 Oxygen Delivery Method Room Air 04/20/24 10:09 Temperature 100.1 F 04/20/24 12:32 Pulse Rate 92 H 04/20/24 11:10 Respiratory Rate 21 H 04/20/24 11:10 Blood Pressure 122/75 04/20/24 11:00 Pulse Oximetry 93 L 04/20/24 11:10 Oxygen Delivery Method Room Air 04/20/24 10:09 Medical Decision Making MDM Narrative Medical decision making narrative: The patient was found to have a fever here without a source identified thus far. Workup is negative with blood cultures pending. Case discussed with Dr. Baker and the patient will be admitted. He will be ordering antibiotics to be given on the floor. Treatment diagnosis and disposition were discussed with the patient. Differential Diagnosis Differential Diagnosis: Pneumonia, viral illness, COVID, UTI Lab Data Lab results reviewed: Yes I reviewed the patient's lab results Labs: Lab Results 04/20/24 04/20/24 04/20/24 Range/Units 10:19 10:20 10:25 WBC 6.1 (4.0-11.0) 10^3/uL RBC 4.17 L (4.20-5.40) 10^6/uL Hgb 12.1 (12.0-16.0) g/dL Hct 36.7 (36.0-48.0) % MCV 88.0 (81.0-99.0) fL MCH 29.0 (26.7-34.0) pg MCHC 33.0 (29.9-35.2) g/dL RDW 12.9 (11.0-15.0) % Plt Count 104 L (150-450) 10^3/uL MPV 12.5 (9.5-13.5) fL Neut % (Auto) 92.0 H (43.0-75.0) % Lymph % (Auto) 4.9 L (20.5-60.0) % Nuckolls % (Auto) 2.4 (1.7-12.0) % Eos % (Auto) 0.0 L (0.9-7.0) % Baso % (Auto) 0.2 (0.2-2.0) % Neut # (Auto) 5.7 (1.4-6.5) 10^3/uL Lymph # (Auto) 0.3 L (1.2-3.8) 10^3/uL Nuckolls # (Auto) 0.2 L (0.3-0.8) 10^3/uL Eos # (Auto) 0.0 (0.0-0.7) 10^3/uL Baso # (Auto) 0.0 (0.0-0.1) 10^3/uL Abs Immat Gran (auto) 0.03 (0.00-0.03) 10^3/uL Imm/Tot Granulo (auto) 0.5 (0.0-0.5) % Sodium 132 L (136-145) mmol/L Potassium 3.5 (3.5-5.1) mmol/L Chloride 99 (98-107) mmol/L Carbon Dioxide 30.1 (21.0-32.0) mmol/L Anion Gap 6.4 BUN 9.0 (7.0-18.0) mg/dL Creatinine 0.68 (0.55-1.02) mg/dL Est GFR ( Amer) >60 (>=60) Est GFR (Non-Af Amer) >60 (>=60) BUN/Creatinine Ratio 13.2 Glucose 103 (74-106) mg/dL Calcium 8.3 L (8.5-10.1) mg/dL Urine Color Lt. yellow (YELLOW) Urine Clarity Clear (CLEAR) Urine pH 7.0 (5.0-9.0) Ur Specific [place] 1.010 (1.005-1.025) Urine Protein Negative (NEG/TRACE) mg/dL Urine Glucose (UA) Negative (NEGATIVE) mg/dL Urine Ketones Negative (NEGATIVE) mg/dL Urine Occult Blood Small A (NEGATIVE) Urine Nitrite Negative (NEGATIVE) Urine Bilirubin Negative (NEGATIVE) Urine Urobilinogen 0.2 (0.2-1.0) EU/dL Ur Leukocyte Esterase Negative (NEGATIVE) Urine RBC 2-5 A (0-2) #/HPF Urine WBC None seen (NONE SEEN) #/HPF Ur Squamous Epith Cells Rare (NONE/RARE) #/LPF Urine Crystals None seen (None Seen) #/HPF Urine Bacteria None seen (NONE SEEN) #/HPF Urine Casts None seen (NONE SEEN) #/LPF Urine Mucus None seen (NONE SEEN) SARS-CoV-2 Ag (CV2AG) Negative (NEGATIVE) Imaging Data Chest x-ray: Radiologist's impression: ITS Impressions Chest X-Ray 04/20/24 10:20 IMPRESSION: 1. No acute cardiopulmonary process. 2. Grossly stable known right upper lobe mass. Electronically authenticated by: CARIE VELÁZQUEZ Date: 04/20/2024 10:57 ECG Data Attestation: I personally reviewed and interpreted this ECG as follows: (EKG on my interpretation shows normal sinus rhythm with no acute change and rate of 96.) Discharge Plan Discharge Chief Complaint: Fever Clinical Impression: Fever of unknown origin Patient Disposition: Admitted As Inpatient Time of Disposition Decision: 13:13 Condition: Good Prescriptions / Home Meds: No Action multivitamin [Daily Multi-Vitamin] Tablet 1 tab PO DAILY acetaminophen-codeine 300-30 mg tablet 2 tab PO Q8H PRN (Reason: pain) amoxicillin-pot clavulanate 875-125 mg tablet 1 tab PO BID fentanyl 25 mcg/hr patch 72 hour 1 patch topical Q72H ibuprofen 600 mg tablet 600 mg PO Q8H PRN (Reason: pain) ondansetron 4 mg tablet,disintegrating 4 mg PO Q8H PRN (Reason: nausea and vomiting) prochlorperazine maleate 10 mg tablet 10 mg PO Q8H PRN (Reason: nausea and vomiting) Print Language: Filipino Referrals: Mark Baker MD [Primary Care Provider] - 1 week
--- NOTE | 2024-04-20 10:20 | XR_ITS ---
The [address] [address] Patient Name: JASON DE LA ROSA MRN: [id number] date: 1955 Sex: F Assigned Patient Location: ER Current Patient Location: ER Accession/Order Number: [id number] Exam Date: 04/20/2024 10:35 Report Date: 04/20/2024 10:57 At the request of: KARYN LOPEZ Procedure: XR chest 1V EXAMINATION: XR chest 1V HISTORY: poss fever COMPARISON: XR chest 02/15/2024 FINDINGS: LUNGS: Grossly stable known right upper lobe mass. No appreciable acute infiltrates. VASCULATURE: No increased pulmonary vasculature. PLEURA: No pneumothorax, effusion, or pleural thickening. CARDIAC: No cardiomegaly or cardiac silhouette abnormality. MEDIASTINUM: No visible mass or adenopathy. BONES: No fracture or visible bone lesion. OTHER: Negative. XR/XR chest 1V IMPRESSION: 1. No acute cardiopulmonary process. 2. Grossly stable known right upper lobe mass. Electronically authenticated by: CARIE VELÁZQUEZ Date: 04/20/2024 10:57
--- OUTSIDE RECORDS SUMMARY | 2024-04-20 10:29 | XMS_ITS | CCD ---
Author Organization [facility] Care Team Providers Care Housekeeper Home Name Role Phone LETITIA, DR GUTIERREZ Primary Care Unavailable LETITIA, DR GUTIERREZ Admitting Unavailable LETITIA, DR GUTIERREZ Attending Unavailable LETITIA, DR GUTIERREZ Consulting Unavailable WEST, DR JOAQUIM Ashton Consulting Unavailable LETITIA, DR GUTIERREZ Primary Care Unavailable LETITIA, DR GUTIERREZ Admitting Unavailable LETITIA, DR GUTIERREZ Attending Unavailable LETITIA, DR GUTIERREZ Consulting Unavailable ZIEBER, DR CARIE Edwards Consulting Unavailable Samsa - TBH, DO Vj Attending Provider ROM MELTON Attending Unavailable OMBALLIROM Referring Unavailable OMBALLI, ROM Referring Unavailable OMBALLI, ROM Referring Unavailable Samsa - TBH, Vj Attending Unavailable Samsa - TBH, Vj Admitting Unavailable Allergies Allergy Classification Reported Allergen(s) Allergy Type Date of Onset Reaction(s) Facility (1 source) ALLERGIES NOT ON FILE; Translations: [ALLERGIES NOT ON FILE] Propensity to adverse reactions (disorder) [facility] Repository Problems Problem Classification Problem Date Documented Da te Episodic/Chronic Cancer of bronchus; lung (2 sources) Malignant neoplasm of unspecified part of unspecified bronchus or lung; Translations: [Malignant neoplasm of unspecified part of unspecified bronchus or lung] Onset: 04-06-2024 Chronic Lymphadenitis (2 sources) Localized enlarged lymph nodes; Translations: [Localized enlarged lymph nodes] Onset: 04-06-2024 Episodic Nonspecific chest pain (4 sources) Other chest pain; Translations: [OTHER CHEST PAIN] Onset: 06-10-2021 Episodic Superficial injury; contusion (4 sources) Contusion of left knee, sequela; Translations: [CONTUSION OF LEFT KNEE SEQUELA] Onset: 08-08-2021 Episodic Results Test Name Value Interpretation Reference Range Facility HPon 04-06-2024 HP - Attestation signed by Rom Melton MD at 04/06/2024 11:16 AM Re-explained the procedure to the patient along with the associated risk of pneumothorax, bleeding, hypoxia, and respiratory failure. Patient is agreeable and will proceed with the scheduled bronchoscopy and EBUS TBNA Rom Melton MD Interventional Pulmonary Medicine Pulmonary and Critical Care Medicine [facility] History Of Present Illness 68 years old lifelong non-smoker female who has been referred to us by Dr. Chester for EBUS due to the need for more tissue samples. Patient has had no past medical history, February she had a COVID since then she has been having chronic cough with worsening mucus production, failed antibiotics course had a CT of the chest on 02/04/2024 that showed 6.2 cm right upper lobe mass with mediastinal and hilar lymphadenopathy per the report patient underwent bronchoscopy with transbronchial and endobronchial biopsies and pathology came back positive for adenocarcinoma 02/05/2024. PET scan on 03/06/2024 per impression revealed right upper lobe pulmonary malignancy with possible postobstructive atelectasis with adjacent lymphangitic carcinomatosis, right supraclavicular, mediastinal and right hilar kym metastasis, was also focal hypermetabolic lesion in the right lobe of the liver consistent with metastasis. 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 Surgical History She has a past surgical history that includes section, classic; Hysterectomy; and Bronchoscopy. Social History She reports that she has never smoked. She has never used smokeless tobacco. She reports that she does not currently use alcohol. She reports that she does not use drugs. Family History No family history on file. Allergies Patient has no known allergies. Medications (Not in a hospital admission) Review of Systems Neurological: Negative for dizziness. Last Recorded Vitals Visit Vitals BP 140/74 Pulse 80 Temp 36.2 ???C (97.2 ???F) (Temporal) Resp 18 Ht 1.575 m (5' 2 ) Wt 67.6 kg (149 lb 0.5 oz) SpO2 96% BMI 27.26 kg/m??? Smoking Status Never BSA 1.72 m??? Physical Exam Vitals reviewed. Cardiovascular: Rate and Rhythm: Normal rate and regular rhythm. Pulses: Normal pulses. Heart sounds: Normal heart sounds. Pulmonary: Effort: Pulmonary effort is normal. Breath sounds: Normal breath sounds. Musculoskeletal: Right lower leg: No edema. Left lower leg: No edema. Skin: General: Skin is warm and dry. Neurological: General: No focal deficit present. Mental Status: She is alert and oriented to person, place, and time. Mental status is at baseline. Relevant Lab Results No results found for: NA , K , CL , CO2 , BUN , CREATININE , GLUCOSE , CALCIUM , ANIONGAP , EGFR , BCR Relevant Imaging Results CT transfer of outside films This order has been auto-finalized and does not contain a result. Assessment/Plan Stage IV right upper lobe adenocarcinoma Plan -Will proceed with bronchoscopy + EBUS for more tissue sampling -Procedure was explained in details to the patient and her daughter at bedside, consent obtained the chart. -Results will be sent to Dr. Nemo Rojas [facility] NON-SPRAY OPERATOR CYTOLOGY - CELLULAR EXAMon 04-06-2024 LAB AP CASE REPORT Normal [facility] Comment on above: Result Comment: Non- gynecologic Cytology Case: [id number] Authorizing Provider: Rom Melton MD Collected: 04/06/2024 1145 Ordering Location: [facility] Main Operating Room Received: 04/06/2024 1425 Pathologist: Linnea Palumbo MD Specimen: Lymph Node Station 4R Performed By: #### L [id number] #### [facility] ([facility]) [address] [place] [address] LAB AP CLINICAL INFORMATION Normal [facility] Comment on above: Result Comment: Hist ory of adenocarcinoma of the right upper lobe, molecular testing requested Performed By: #### L [id number] #### [facility] ([facility]) [address] [place] [address] LAB AP DIAGNOSIS COMMENT There is a moderate amount of tumor cells present in the cell block for additional studies, if clinically indicated. Normal [facility] Comment on above: Performed By: #### L [id number] #### [facility] ([facility]) [address] [place] [address] LAB AP GROSS DESCRIPTION [facility] Comment on above: Result Comment: 2 ai r-dried slides, 2 alcohol-fixed slides, 30 mL CytoLyt with hazy, red fluid and clots Performed By: #### L [id number] #### [facility] ([facility]) [address] [place] [address] LAB AP INTRAOPERATIVE CONSULTATION [facility] Comment on above: Result Comment: A. L ymph Node Station 4R. Rapid on-site evaluation was performed by Linnea Palumbo MD. The material examined during rapid on-site evaluation was deemed adequate for diagnosis. Pass #1: Adequate Pass #2: Defer - cell block Pass #3: Defer - cell block Pass #4: Adequate Pass #5: Defer - cell block Pass #6: Defer - cell block Pass #7: Defer - cell block Pass #8: Defer - cell block Pass #9: Defer - cell block Pass #10: Defer - cell block *Only select material is examined during the on-site evaluation. Final diagnosis is pending the review of all material submitted.* Performed By: #### L [id number] #### [facility] ([facility]) [address] [place] [address] LAB AP MICROSCOPIC DESCRIPTION A. Satisfactory for evaluation. Examination of the prepared smears and cell block reveals numerous tumor cells arranged in clusters and as single cells with finely vacuolated cytoplasm, high n/c ratio, and enlarged nuclei with irregular chromatin and prominent nucleoli. [facility] Comment on above: Performed By: #### L [id number] #### [facility] ([facility]) [address] [place] [address] LAB AP REPORT FINAL DIAGNOSIS NARRATIVE [facility] Comment on above: Result Comment: A. L ymph node, station 4R, EBUS-guided fine needle aspiration: - Metastatic adenocarcinoma. Performed By: #### L [id number] #### [facility] ([facility]) [address] [place] [address] NURSNOTEon 04-06-2024 NURSNOTE Discharge instructions reviewed with patient sister at bedside. All questions answered at this time Cass Lucero [employer] [facility] NURSNOTE No chest xray needed post op at this time per Dr. Lorri Lucero [employer] [facility] POCT GLUCOSE METER UNSOLICIT ED RESULTSon 04-06-2024 Glucose [Mass/Vol] 104 mg/dL Normal 70-105 [facility] Comment on above: Order Comment: Waive d Testing in the ED is performed under the ED CLIA certificate #[id number]. Result Comment: ngro rodriguez Performed By: #### L [id number] #### [facility] ([facility]) [address] [place] [address] Prep for Procedureon 024 Prep for Procedure [id number] Estrella,Isela 1955 F Date Provider Department Center 04/04/2024 ROM HARVEY [facility] No family history on file [facility] Abstracton 04-03-2024 Abstract [id number] Estrella,Isela 1955 F Date Provider Department Center 04/03/2024 ROM HARVEY [facility] No family history on file [facility] Orders Onlyon 04-03-2024 Orders Only [id number] Isela De La Rosa 1955 F Date Provider Department Center 04/03/2024 ROM HARVEY [facility] No family history on file Normal [facility] Umer 02-15-2024 L Specimen: [id number] Received: 02/16/24 Status: PEGGY Lois Num: [id number] Spec Type: Surgical Subm Dr: Vj Glass DO Tissues: A Lung - Transbroncial Biopsy (RT UPPER LOBE MASS BX) Procedures: HE/2, Gross/Micro L4, CK5 6, CK20, CK 7, NAPSIN A, TTF1, IHC First AB, IHC Add AB/5, p40 Age/ Patient Sex Location Account Attending Physician Isela De La Rosa 68/F LABELL [id number] Vj Glass DO SPEC NUM: [id number] RECD: 02/16/24 STATUS: KERIOswaldo ABREU NUM: [id number] KIMBERLYN: 02/15/[address]: Vj Glass DO ENTERED: 02/16/[address]: Jesu,Nadeem SPEC TYPE: Surgical DEPT: [facility] ORDERED: HE/2, Gross/Micro L4, CK5 6, CK20, CK 7, NAPSIN A, TTF1, IHC First AB, IHC Add AB/5, p40 ORDERED: HE/2, Gross/Micro L4, CK5 6, CK20, CK 7, NAPSIN A, TTF1, IHC First AB, IHC Add AB/5, p40 Supplemental Report Addendum 1 Entered: 04/12/24 [employer] test was cancelled due to insufficient tissue. See attached report. Addendum Signed (signature on file) Rom Garcia MD 04/12/241909 -------- Pathological Diagnosis Lesion, right lung, upper lobe, biopsy: Adenocarcinoma. Comment: Tumor cells are positive for cytokeratin 7 and Napsin, while being negative for cytokeratin 20, p40 and cytokeratin 5/6 immunostain. This immunoprofile is consistent with lung adenocarcinoma. Clinical correlation is required. -------- Specimen: [id number] Received: 02/16/24 Status: PEGGY Taylorvalerie Num: [id number] Spec Type: Surgical Subm Dr: Vj Glass DO Tissues: A Lung - Transbroncial Biopsy (RT UPPER LOBE MASS BX) Procedures: HE/2, Gross/Micro L4, CK5 6, CK20, CK 7, NAPSIN A, TTF1, IHC First AB, IHC Add AB/5, p40 -------- Patient: EstrellaIsela [id number] (Continued) -------- Specimen: [id number] Received: 02/16/24 (Continued) Signed (signature on file) Rom Garcia MD 02/23/24 1658 -------- Specimen: [id number] Received: 02/16/24 Status: PEGGY Abreu Num: [id number] Spec Type: Surgical Subm Dr: Vj Glass DO Tissues: A Lung - Transbroncial Biopsy (RT UPPER LOBE MASS BX) Procedures: HE/2, Gross/Micro L4, CK5 6, CK20, CK 7, NAPSIN A, TTF1, IHC First AB, IHC Add AB/5, p40 -------- Patient: EstrellaIsela [id number] (Continued) -------- Specimen: [id number] Received: 02/16/24 (Continued) Clinical Information Abnormal bronchial mucosa of the right upper lobe Gross Description Received in formalin labeled with the patient's name, date of and right upper lobe mass biopsy are 3 delicate meeks tissue fragments ranging from 0.4 x 0.1 x 0.1 cm to 0.3 x 0.1 x 0.1 cm, entirely submitted in A1. CPT Codes 20739 [id number] -------- -------- Specimen: [id number] Received: 02/16/24 Status: PEGGY Abreu Num: [id number] Spec Type: Surgical Subm Dr: Vj Glass DO Tissues: A Lung - Transbroncial Biopsy (RT UPPER LOBE MASS BX) Procedures: HE/2, Gross/Micro L4, CK5 6, CK20, CK 7, NAPSIN A, TTF1, IHC First AB, IHC Add AB/5, p40 -------- Patient: Isela De La Rosa [id number] (Continued) -------- Signed (signature on file) Rom Garcia MD 02/23/24 0482 Normal [facility] L Specimen: [id number] Received: 02/16/24 Status: PEGGY Abreu Num: [id number] Spec Type: Cytology Subm Dr: Vj Glass DO Tissues: A BRONWASH (RUL) Procedures: HE/2, Gross/Micro L4, Cyto Prepstain, PAPSTN Age/ Patient Sex Location Account Attending Physician Isela De La Rosa 68/F LABELL [id number] Vj Glass DO SPEC NUM: [id number] RECD: 02/16/24 STATUS: PEGGY ABREU NUM: [id number] KIMBERLYN: 02/15/24-[address]: Vj Glass DO ENTERED: 02/16/[address]: Jesu,Lab SPEC TYPE: Cytology DEPT: [facility] ENTERED BY: [id number] RECV BY: [id number] ORDERED: HE/2, Gross/Micro L4, Cyto Prepstain, PAPSTN ORDERED: HE/2, Gross/Micro L4, Cyto Prepstain, PAPSTN Pathological Diagnosis Right lung, bronchial washings: Negative for malignant cells. Clinical Information Right lung mass Gross Description Received fresh is 8 ml red cloudy unfixed fluid for cytology said to have been obtained as Right upper lobe lavage. ThinPrep and cell block preparations are prepared for microscopic examination.( SC/ia) CPT Codes 53124 -------- -------- Specimen: [id number] Received: 02/16/24 Status: PEGGY Abreu Num: [id number] Spec Type: Cytology Subm Dr: Vj Glass DO Tissues: A [facility] Procedures: HE/2, Gross/Micro L4, Cyto Prepstain, PAPSTN -------- Patient: Isela De La Rosa [id number] (Continued) -------- Signed (signature on file) Rom Garcia MD 02/23/24 1536 Normal [facility] NM STRESS/REST MULTIon 06-10 NM STRESS/REST MULTI Patient: ISELA DE LA ROSA Exam Date: 06/10/2021 : 1955 Gender:F Ordering : DR BRENDA DONG . Admission #: [id number] Family : Order #: [id number] CLICK HERE TO VIEW EXAM RADIOLOGY REPORT [...] Maravilla MD on 06/10/2021 at 12:59 Normal [facility] Encounters Encounter Date Encounter Type Care Provider Facility Start: 04-06-2024 End: 04-06-2024 ambulatory [facility] Start: 04-03-2024 End: 04-03-2024 ambulatory [facility] Start: 02-15-2024 End: 02-15-2024 ambulatory [facility] Work Phone: Start: 02-15-2024 End: 02-15-2024 Departed Referred DO Vj [facility] Work Phone: [facility] Path Spec [facility] Start: 08-08-2021 End: 08-09-[address] BRENDA DONG Facility:[facility] Start: 06-10-2021 End: 06-11-[address] BRENDA DONG Facility:[facility] Payers Date Payer Category Payer Self-pay 2022 Medicare [id number] 1958 Unknown [id number] 1955 Unknown [id number] 1955 Unknown [id number] Private Health Insurance [employer] Insurance [facility] [id number] Social History Date Type Detail Facility Tobacco smoking stat [facility] Unknown if ever smoked [facility] Work Phone: Start: 1955 Sex Assigned At Female F [facility] Clinical Note 04-06-2024 Note Date & Type Note Facility 04-06-2024 Note Patient: Isela edwards Procedure Summary Date: 04/06/24 Room / Location: [facility] Main Operating Room Anesthesia Start: 1126 Anesthesia Stop: 1214 Procedure: BRONCHOSCOPY Diagnosis: Malignant neoplasm of lung, unspecified laterality, unspecified part of lung (CMS/HCC) Mediastinal adenopathy Scheduled Providers: Rom Melton MD Responsible Provider: Kevon Lamar MD Anesthesia Type: general ASA Status: 2 Anesthesia Type: general Vitals Value Taken Time BP 143/74 04/06/24 1233 Temp 36.2 ???C (97.2 ???F) 04/06/24 1218 Pulse 93 04/06/24 1233 Resp 15 04/06/24 1233 SpO2 96 % 04/06/24 1233 Anesthesia Post Evaluation Patient location during evaluation: PACU Patient participation: complete - patient participated Level of consciousness: awake and alert Pain score: 1 Pain management: adequate Airway patency: patent Two or more strategies used to mitigate risk of obstructive sleep apnea Cardiovascular status: hemodynamically stable Respiratory status: room air and nonlabored ventilation Hydration status: euvolemic Patient is hemodynamically stable and is able to be discharged from PACU per anesthesia protocol. There were no known notable events for this encounter. [facility] Procedure note 04-06-2024 Note Date & Type Note Facility 04-06-2024 Note Airway Date/Time: 04/06/2024 11:32 AM Urgency: elective Airway not difficult General Information and Staff Patient location during procedure: OR Anesthesiologist: Kevon Lamar MD Resident/PRICER/CAA: Ananda Villatoro MD Performed: resident/PRICER/CAA Indications and Patient Condition Indications for airway management: anesthesia Spontaneous Ventilation: absent Sedation level: deep Preoxygenated: yes Patient position: sniffing Mask difficulty assessment: 2 - vent by mask + OA or adjuvant +/- NMBA Planned trial extubation Final Airway Details Final airway type: endotracheal airway Successful airway: ETT Cuffed: yes Successful intubation technique: video laryngoscopy Facilitating devices/methods: intubating stylet Endotracheal tube insertion site: oral Blade: Barbour Blade size: #3 ETT size (mm): 8.5 Cormack-Lehane Classification: grade I - full view of glottis Placement verified by: chest auscultation and capnometry Measured from: lips ETT to lips (cm): 22 Number of attempts at approach: 1 [facility] Clinical Note 04-06-2024 Note Date & Type Note Facility 04-06-2024 Note Patient: Isela edwards Procedure Summary Date: 04/06/24 Room / Location: [facility] Main Operating Room Anesthesia Start: 1126 Anesthesia Stop: 1214 Procedure: BRONCHOSCOPY Diagnosis: Malignant neoplasm of lung, unspecified laterality, unspecified part of lung (CMS/HCC) Mediastinal adenopathy Scheduled Providers: Rom Melton MD Responsible Provider: Kevon Lamar MD Anesthesia Type: general ASA Status: 2 Anesthesia Post Transport Note Transport to: PACU O2 Route: room air and face mask Oxygen Flow (L/min): 8 Patient Monitor: direct observation Transport: uneventful Patient condition is: stable Comments: Patient was able to respond and follow verbal commands throughout transport process [facility] Clinical Note 04-06-2024 Note Date & Type Note Facility 04-06-2024 Note Patient: Isela edwards Procedure Information Date/Time: 04/06/24 1130 Scheduled providers: Rom Melton MD Procedure: BRONCHOSCOPY Location: [facility] Main Operating Room Relevant Problems No relevant active problems Clinical information reviewed: Tobacco Allergies Meds Problems Med Hx Surg Hx Fam Hx Soc Hx Physical Exam Airway Mallampati: I TM distance: >3 FB Neck ROM: full Cardiovascular Dental Pulmonary Abdominal - normal exam Other findings: Never smoked; mass in RUL found in December,; has two remaining upper teeth, pt. Says they are loose; has about nine remaining lower teeth. Denies DM, CAD, CVA, HTN. Pt.'s daughter was present for the pre-op interview. Anesthesia Plan ASA 2 general The patient is not a current smoker. Patient was previously instructed to abstain from smoking on day of procedure. Patient did not smoke on day of procedure. intravenous induction Anesthetic plan and risks discussed with patient. Use of blood products discussed with patient who consented to blood products. Plan discussed with 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 Additional Equipment Requests [facility] Progress note 04-03-2024 Note Date & Type Note Facility 04-03-[address] Chester . Patient needs more tissue for molecular testing. EBUS order placed [facility] Clinical Note 08-08-2021 Note Date & Type [...] by: CARIE VELÁZQUEZ Date: 2021-08-08 14:54 [facility] Evaluation note Note Date & Type Note Facility Evaluation note No assessment information availa [facility] Work Phone: Summary Purpose Family History No Family History Records FoundNo Family History Records FoundNo Family History Records Found Advance Directives No Advanced Directives Records FoundNo Advanced Directives Records FoundNo Advanced Directives Records Found Additional Source Comments INFORMATION SOURCE (unrecogn ized section and content) DATE CREATED AUTHOR 08/13/2021 [facility] DATE CREATED AUTHOR AUTHOR'S ORGANIZ ATION 04/12/2024 [facility] DATE CREATED AUTHOR AUTHOR'S ORGANIZ ATION 04/15/2024 [facility] Care Teams (unrecognized sec tion and content) Team Status: Inactive Member Role Status Dates Vj CROWLEY , DO Attending Provider Active Start: February 15, [...] BE BASED ON THE PRIMARY CLINICAL RECORDS. [facility] [employer] [facility]. provides no warranty or guarantee of the accuracy or completeness of information in this document.
[2024-04-20 10:34] LABS: Basophils Percent Auto 0.2 % (0.2-2.0); Hematocrit 36.7 % (36.0-48.0); Hemoglobin 12.1 g/dL (12.0-16.0); Immature Granulocytes Abs Auto 0.03 10^3/uL (0.00-0.03); Immature Granulocytes Pct Auto 0.5 % (0.0-0.5); Lymphocytes Absolute Auto 0.3 10^3/uL (1.2-3.8); Lymphocytes Percent Auto 4.9 % (20.5-60.0); Mean Platelet Volume 12.5 fL (9.5-13.5); Monocytes Absolute Auto 0.2 10^3/uL (0.3-0.8); Monocytes Percent Auto 2.4 % (1.7-12.0); Neutrophils Absolute Auto 5.7 10^3/uL (1.4-6.5); Platelet Count 104 10^3/uL (150-450); Red Blood Count 4.17 10^6/uL (4.20-5.40); Red Cell Distribution Width 12.9 % (11.0-15.0); White Blood Count 6.1 10^3/uL (4.0-11.0)
[2024-04-20 10:37] LABS: Bilirubin Urine NEGATIVE (NEGATIVE); Blood Urine SMALL (NEGATIVE); Clarity Urine CLEAR (CLEAR); Color Urine LT. YELLOW (YELLOW); Glucose Urine UA NEGATIVE (NEGATIVE); Ketones Urine NEGATIVE (NEGATIVE); Leukocyte Esterase Urine NEGATIVE (NEGATIVE); Nitrite Urine NEGATIVE (NEGATIVE); Protein Urine NEGATIVE (NEG/TRACE); Urobilinogen Urine 0.2 EU/dL (0.2-1.0)
[2024-04-20 10:44] LABS: Internal Control Within Normal Limits; SARS-CoV-2 Ag NEGATIVE (NEGATIVE)
[2024-04-20 10:45] LABS: Anion Gap 6.4; BUN Creatinine Ratio 13.2; Calcium 8.3 mg/dL (8.5-10.1); Carbon Dioxide 30.1 mmol/L (21.0-32.0); Chloride 99 mmol/L (98-107); Estimated GFR (African America >60 (>=60); Estimated GFR (Non-African Ame >60 (>=60); Glucose 103 mg/dL (74-106); Potassium 3.5 mmol/L (3.5-5.1); Sodium 132 mmol/L (136-145)
[2024-04-20 11:06] LABS: Bacteria Urine NONE SEEN #/HPF (NONE SEEN); Cast Seen? NONE SEEN #/LPF (NONE SEEN); Crystals Seen? None Seen #/HPF (None Seen); Mucus Urine NONE SEEN (NONE SEEN); Squamous Epithelial Cell Urine RARE #/LPF (NONE/RARE); WBC Urine NONE SEEN #/HPF (NONE SEEN)
[2024-04-20] MEDS: ACETAMINOPHEN 325 MG TABLET 650 MG PO (12:09)
[2024-04-20] MEDS: IBUPROFEN 400 MG TABLET 800 MG PO (14:02)
--- NOTE | 2024-04-20 14:34 | P.HP_ITS ---
HPI H&P: HPI History of Present Illness Chief complaint: FEVER, SHAKY, NAUSEA Narrative: Patient well-known to me from the office for numerous years, presented emergency room with fever, she is currently undergoing lung cancer treatment and receiving chemotherapy. 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 Did not really have any conversational dyspnea. She is not a smoker but has been exposed to smoke most of her life Opioid HPI Opioid Management Most Recent Pain and Opioid Data: Last Pain Assessment 04/20/24 17:36 Last MAR Pain Assessment 04/20/24 14:02 Last ORT Total Score 0 04/20/24 14:32 Last ORT Risk Category Low Risk 04/20/24 14:32 Review of Systems ROS Status of ROS 10 or more systems reviewed and unremark able except as noted in history and below PFSH PFS Medical History (Updated 04/20/24 @ 18:23 by Mark Baker MD) Arthritis ?M19.90 - Unspecified osteoarthritis, unspecified site (ICD-10) Situational depression ?F43.21 - Adjustment disorder with depressed mood (ICD-10) Cough ?R05.9 - Cough, unspecified (ICD-10) COVID-19 ?U07.1 - COVID-19 (ICD-10) Hilar lymphadenopathy ?R59.0 - Localized enlarged lymph nodes (ICD-10) Lung mass ?R91.8 - Other nonspecific abnormal finding of lung field (ICD-10) Surgical History (Updated 02/10/24 @ 08:22 by Daria Ray NP) History of surgery on arm ?Z98.890 - Other specified postprocedural states (ICD-10) History of hysterectomy ?Z90.710 - Acquired absence of both cervix and uterus (ICD-10) History of section ?Z98.891 - History of uterine scar from previous surgery (ICD-10) Family History (Updated 04/20/24 @ 14:05 by Lexi Em LPN) Other Family history of COPD (chronic obstructive pulmonary disease) Family history of aneurysm Family history of heart disease Family history of lung cancer Family history of myocardial infarction Social History (Updated 02/10/24 @ 08:17 by Daria Ray NP) Within the past year, how often did you have a drink containing alcohol: never Score interpretation: A score less than 3 is consistent with normal alcohol consumption. 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[employer] Highest level of school completed/degree received: some college, no degree Little interest or pleasure in doing things: not at all Feeling down, depressed, or hopeless: not at all Meds Home Medications and Allergies Home Medications ?Medication ?Instructions ?Recorded ?Confirmed ?Type multivitamin (Daily Multi-Vitamin 1 tab PO DAILY 02/10/24 04/20/24 History tablet) acetaminophen 300 mg-codeine 30 mg 2 tab PO Q8H PRN pain 04/20/24 04/20/24 History tablet amoxicillin 875 mg-potassium 1 tab PO BID 04/20/24 04/20/24 History clavulanate 125 mg tablet dexamethasone 2 mg tablet 4 mg PO .qd 04/20/24 04/20/24 History fentanyl 25 mcg/hr transdermal 1 patch topical Q72H 04/20/24 04/20/24 History patch ibuprofen 600 mg tablet 600 mg PO Q8H PRN pain 04/20/24 04/20/24 History ondansetron 4 mg disintegrating 4 mg PO Q8H PRN nausea and vomiting 04/20/24 04/20/24 History tablet prochlorperazine maleate 10 mg 10 mg PO Q8H PRN nausea and 04/20/24 04/20/24 History tablet vomiting Allergies Allergy/AdvReac Type Severity Reaction Status Date / Time No Known Drug Allergies Allergy Verified 02/10/24 08:16 Exam Constitutional Vital Signs, click to edit/add: Last Vital Signs Temp 100.1 F 04/20/24 14:30 Pulse 83 04/20/24 14:30 Resp 16 04/20/24 14:30 BP 107/69 04/20/24 14:30 Pulse Ox 92 L 04/20/24 14:30 O2 Del Method Room Air 04/20/24 14:30 Documenting provider has reviewed patient's vital signs: yes Common normals: no apparent distress HENMT Common normals: normocephalic Chest Common normals: inspection of chest normal Respiratory Common normals: normal respiratory effort, no retractions, no use of accessory muscles and clear to auscultation bilaterally Auscultation: diminished lung sounds Cardio Common normals: regular rate and regular rhythm Results Labs Labs: Short CBC 04/20/24 Range/Units 10:19 WBC 6.1 (4.0-11.0) 10^3/uL Hgb 12.1 (12.0-16.0) g/dL Hct 36.7 (36.0-48.0) % Plt Count 104 L (150-450) 10^3/uL BMP 04/20/24 10:19 Sodium 132 L Potassium 3.5 Chloride 99 Carbon Dioxide 30.1 BUN 9.0 Creatinine 0.68 Glucose 103 Calcium 8.3 L Urine 04/20/24 Range/Units 10:20 Urine Color Lt. yellow (YELLOW) Urine Clarity Clear (CLEAR) Urine pH 7.0 (5.0-9.0) Ur Specific [place] 1.010 (1.005-1.025) Urine Protein Negative (NEG/TRACE) mg/dL Urine Glucose (UA) Negative (NEGATIVE) mg/dL Assessment and Plan Assessment and Plan (1) Sepsis: Plan Admission findings: Fever, 101.3, sinus tachycardia, respiratory distress, thrombocytopenia, hyponatremia secondary to acute exacerbation of COPD from acute bronchitis complicated by currently undergoing chemotherapy for lung cancer resulting in immune deficiency Sepsis while on chemo causing acute bronchitis causing acute exacerbation of COPD-patient is not a smoker but she has been exposed to smoke most of her life. Try to obtain sputum culture, IV antibiotics, aerosol treatments, low-dose steroids. Blood cultures pending urine culture pending, trying to obtain sputum Hyponatremia likely secondary to mild dehydration-IV fluids overnight, reeval in a.m. Thrombocytopenia secondary to chemotherapy used for treatment for lung cancer, monitor daily Admissions status: Patient with immune deficiency secondary to chemotherapy for lung cancer now with fever and sepsis due to acute exacerbation of COPD due to acute bronchitis, medically necessary treatment will span 2 midnights. Inpatient status.
--- OUTSIDE RECORDS SUMMARY | 2024-04-20 14:36 | XMS_ITS | CCD ---
Author Organization [facility] Care Team Providers Care Coke Production Heater Name Role Phone LETITIA, DR GUTIERREZ Primary Care Unavailable LETITIA, DR GUTIERREZ Admitting Unavailable LETITIA, DR GUTIERREZ Attending Unavailable LETITIA, DR GUTIERREZ Consulting Unavailable WEST, DR JOAQUIM Ashton Consulting Unavailable LETITIA, DR GUTIERREZ Primary Care Unavailable LETITIA, DR GUTIERREZ Admitting Unavailable LETITAI, DR GUTIERREZ Attending Unavailable LETITIA, DR GUTIERREZ [...] ON FILE] Propensity to adverse reactions (disorder) [facility] Repository Problems Problem Classification Problem Date Documented [...] Pulmonary Medicine Pulmonary and Critical Care Medicine [facility] Physicians History Of Present Illness 68 years [...] will be sent to Dr. 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 CYTOLOGY - CELLULAR EXAMon 04-06-2024 LAB AP CASE REPORT Normal [facility] Comment on above: Result Comment: Non- gynecologic Cytology Case: [id number] Authorizing Provider: Rom Melton MD Collected: 04/06/2024 1145 Ordering Location: [facility] Main Operating Room Received: 04/06/2024 1425 Pathologist: Linnea Palumbo MD Specimen: Lymph Node Station 4R Performed By: #### L [id number] #### [facility] ([facility] [address] [place] [address] LAB AP CLINICAL INFORMATION Normal [facility] Comment on above: Result Comment: Hist ory of adenocarcinoma of the right upper lobe, molecular testing requested Performed By: #### L [id number] #### [facility] ([facility] [address] [place] [address] LAB AP DIAGNOSIS COMMENT There is a moderate amount of tumor cells present in the cell block for additional studies, if clinically indicated. Normal [facility] Comment on above: Performed By: #### L [id number] #### [facility] ([facility] [address] [place] [address] LAB AP GROSS DESCRIPTION [facility] Comment on above: Result Comment: 2 ai r-dried slides, 2 alcohol-fixed slides, 30 mL CytoLyt with hazy, red fluid and clots Performed By: #### L [id number] #### [facility] ([facility] [address] [place] [address] LAB AP INTRAOPERATIVE CONSULTATION [facility] Comment on above: Result Comment: A. [...] submitted.* Performed By: #### L [id number] #### [facility] ([facility] [address] [place] [address] LAB AP MICROSCOPIC DESCRIPTION A. Satisfactory for evaluation. Examination of the prepared smears and cell block reveals numerous tumor cells arranged in clusters and as single cells with finely vacuolated cytoplasm, high n/c ratio, and enlarged nuclei with irregular chromatin and prominent nucleoli. [facility] Comment on above: Performed By: #### L [id number] #### [facility] ([facility]) [address] [place] [address] LAB AP REPORT FINAL DIAGNOSIS NARRATIVE [facility] Comment on above: Result Comment: A. L ymph node, station 4R, EBUS-guided fine needle aspiration: - Metastatic adenocarcinoma. Performed By: #### L [id number] #### [facility] ([facility] [address] [place] [address] NURSNOTEon 04-06-2024 NURSNOTE Discharge instructions reviewed with patient sister at bedside. All questions answered at this time Cass Lucero MEDICAL ADMINISTRATOR [facility] NURSNOTE No chest xray needed post op at this time per Dr. Lorri Lucero MEDICAL ADMINISTRATOR [facility] POCT GLUCOSE METER UNSOLICIT ED RESULTSon 04-06-2024 Glucose [Mass/Vol] 104 mg/dL Normal 70-105 [facility] Comment on above: Order Comment: Waive d Testing in the ED is performed under the ED CLIA certificate #[id number]. Result Comment: ngro rodriguez Performed By: #### L [id number] #### [facility] ([facility] [address] [place] [address] Prep for Procedureon 024 Prep for Procedure [id number] Estrella,Isela 1955 F Date Provider Department Center 04/04/2024 ROM HARVEY [facility] No family history on file [facility] Abstracton 04-03-2024 Abstract [id number] Estrella,Isela 1955 F Date Provider Department Center 04/03/2024 ROM HARVEY [facility] No family history on file [facility] Orders Onlyon 04-03-2024 Orders Only [id number] Isela De La Rosa 1955 F Date Provider Department Center 04/03/2024 ROM HARVEY [facility] No family history on file Normal [facility] Umer 02-15-2024 L Specimen: [id number] Received: 02/16/24 Status: PEGGY Lois Num: [id number] Spec Type: Surgical Subm Dr: Vj Glass DO Tissues: A Lung - Transbroncial Biopsy (RT UPPER LOBE MASS BX) Procedures: HE/2, Gross/Micro L4, CK5 6, CK20, CK 7, NAPSIN A, TTF1, IHC First AB, IHC Add AB/5, p40 Age/ Patient Sex Location Account Attending Physician Isela De La Rosa 68/F LABELL [id number] Vj Glass DO SPEC NUM: [id number] RECD: 02/16/24 STATUS: KERIOswaldo ABREU NUM: [id number] KIMBERLYN: 02/15/[address]: Vj Glass DO [...] adenocarcinoma. Clinical correlation is required. -------- Specimen: [id number] Received: 02/16/24 Status: PEGGY Taylorvalerie Num: [id number] Spec Type: Surgical Subm Dr: Vj Glass DO Tissues: A Lung - Transbroncial Biopsy (RT UPPER LOBE MASS BX) Procedures: HE/2, Gross/Micro L4, CK5 6, CK20, CK 7, NAPSIN A, TTF1, IHC First AB, IHC Add AB/5, p40 -------- Patient: EstrellaIsela [id number] (Continued) -------- Specimen: [id number] Received: 02/16/24 (Continued) Signed (signature on file) Rom Garcia MD 02/23/24 1658 -------- Specimen: [id number] Received: 02/16/24 Status: PEGGY Abreu Num: [id number] Spec Type: Surgical Subm Dr: Vj Glass DO Tissues: A Lung - Transbroncial Biopsy (RT UPPER LOBE MASS BX) Procedures: HE/2, Gross/Micro L4, CK5 6, CK20, CK 7, NAPSIN A, TTF1, IHC First AB, IHC Add AB/5, p40 -------- Patient: EstrellaIsela [id number] (Continued) -------- Specimen: [id number] Received: 02/16/24 (Continued) Clinical Information Abnormal bronchial mucosa of the right upper lobe Gross Description Received in formalin labeled with the patient's name, date of and right upper lobe mass biopsy are 3 delicate meeks tissue fragments ranging from 0.4 x 0.1 x 0.1 cm to 0.3 x 0.1 x 0.1 cm, entirely submitted in A1. CPT Codes 30273 07209 [id number] -------- -------- Specimen: [id number] Received: 02/16/24 Status: PEGGY Abreu Num: [id number] Spec Type: Surgical Subm Dr: Vj Glass DO Tissues: A Lung - Transbroncial Biopsy (RT UPPER LOBE MASS BX) Procedures: HE/2, Gross/Micro L4, CK5 6, CK20, CK 7, NAPSIN A, TTF1, IHC First AB, IHC Add AB/5, p40 -------- Patient: Isela De La Rosa [id number] (Continued) -------- Signed (signature on file) Rom Garcia MD 02/23/24 8698 Normal [facility] L Specimen: [id number] Received: 02/16/24 Status: PEGGY Abreu Num: [id number] Spec Type: Cytology Subm Dr: Vj Glass DO Tissues: A BRONWASH (RUL) Procedures: HE/2, Gross/Micro L4, Cyto Prepstain, PAPSTN Age/ Patient Sex Location Account Attending Physician Isela De La Rosa 68/F LABELL [id number] Vj Glass DO SPEC NUM: [id number] RECD: 02/16/24 STATUS: PEGGY ABREU NUM: [id number] KIMBERLYN: 02/15/24-[address]: Vj Glass DO ENTERED: 02/16/[address]: Jesu,Lab SPEC TYPE: Cytology DEPT: [facility] ENTERED BY: [id number] RECV BY: [id number] ORDERED: HE/2, Gross/Micro L4, Cyto Prepstain, PAPSTN ORDERED: HE/2, Gross/Micro L4, Cyto Prepstain, PAPSTN Pathological Diagnosis Right lung, bronchial washings: Negative for malignant cells. Clinical Information Right lung mass Gross Description Received fresh is 8 ml red cloudy unfixed fluid for cytology said to have been obtained as Right upper lobe lavage. ThinPrep and cell block preparations are prepared for microscopic examination.( KS/nm) CPT Codes 18823 -------- -------- Specimen: [id number] Received: 02/16/24 Status: PEGGY Abreu Num: [id number] Spec Type: Cytology Subm Dr: Vj Glass DO Tissues: A [facility] Procedures: HE/2, Gross/Micro L4, Cyto Prepstain, PAPSTN -------- Patient: Isela De La Rosa [id number] (Continued) -------- Signed (signature on file) Rom Garcia MD 02/23/24 1536 Normal [facility] NM STRESS/REST MULTIon 06-10 NM STRESS/REST MULTI Patient: ISELA DE LA ROSA Exam Date: 06/10/2021 : 1955 Gender:F Ordering : DR BRENDA DONG . Admission #: [id number] Family : Order #: [id number] CLICK HERE TO VIEW EXAM RADIOLOGY REPORT [...] Maravilla MD on 06/10/2021 at 12:59 Normal [facility] Encounters Encounter Date Encounter Type Care Provider Facility Start: 04-06-2024 End: 04-06-2024 ambulatory [facility] Start: 04-03-2024 End: 04-03-2024 ambulatory [facility] Start: 02-15-2024 End: 02-15-2024 ambulatory [facility] Work Phone: Start: 02-15-2024 End: 02-15-2024 Departed Referred DO Vj [facility] Work Phone: [facility] Path Spec [facility] Start: 08-08-2021 End: 08-09-[address] BRENDA DONG Facility:[facility] Start: 06-10-2021 End: 06-11-[address] BRENDA DONG Facility:[facility] Payers Date Payer Category Payer Self-pay 2022 Medicare [id number] 1958 Unknown [id number] 1955 Unknown [id number] 1955 Unknown [id number] Private Health Insurance [employer] Insurance [facility] [id number] Social History Date Type Detail Facility Tobacco smoking stat [facility] Unknown if ever smoked [facility] Work Phone: Start: 1955 Sex Assigned At Female F [facility] Clinical Note 04-06-2024 Note Date & Type Note Facility 04-06-2024 Note Patient: Isela edwards Procedure Summary Date: 04/06/24 Room / Location: [facility] Main Operating Room Anesthesia Start: [...] no known notable events for this encounter. [facility] Procedure note 04-06-2024 Note Date & Type Note Facility 04-06-2024 Note Airway Date/Time: 04/06/2024 11:32 AM Urgency: elective Airway not difficult General Information and Staff Patient location during procedure: OR Anesthesiologist: Kevon Lamar MD Resident/TRUCK LEASING MANAGER/CAA: Ananda Villatoro MD Performed: resident/TRUCK LEASING MANAGER/CAA Indications and Patient Condition Indications for airway [...] 22 Number of attempts at approach: 1 [facility] Clinical Note 04-06-2024 Note Date & Type Note Facility 04-06-2024 Note Patient: Isela edwards Procedure Summary Date: 04/06/24 Room / Location: [facility] Main Operating Room Anesthesia Start: [...] and follow verbal commands throughout transport process [facility] Clinical Note 04-06-2024 Note Date & Type Note Facility 04-06-2024 Note Patient: Isela edwards Procedure Information Date/Time: 04/06/24 1130 Scheduled providers: Rom Melton MD Procedure: BRONCHOSCOPY Location: [facility] Main Operating Room Relevant Problems [...] 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 Additional Equipment Requests [facility] Progress note 04-03-2024 Note Date & Type Note Facility 04-03-[address] Chester . Patient needs more tissue for molecular testing. EBUS order placed [facility] Clinical Note 08-08-2021 Note Date & [...] by: CARIE VELÁZQUEZ Date: 2021-08-08 14:54 [facility] Evaluation note Note Date & Type Note Facility Evaluation note No assessment information availa [facility] Work Phone: Summary Purpose Family History No Family History Records FoundNo Family History Records FoundNo Family History Records Found Advance Directives No Advanced Directives Records FoundNo Advanced Directives Records FoundNo Advanced Directives Records Found Additional Source Comments INFORMATION SOURCE (unrecogn ized section and content) DATE CREATED AUTHOR 08/13/2021 [facility] DATE CREATED AUTHOR AUTHOR'S ORGANIZ ATION 04/12/[address] [facility] DATE CREATED AUTHOR AUTHOR'S ORGANIZ ATION 04/15/2024 [facility] Care Teams (unrecognized sec [...] BE BASED ON THE PRIMARY CLINICAL RECORDS. [facility]. provides no warranty or guarantee of the accuracy or completeness of information in this document.
[2024-04-20 15:02] LABS: Alanine Aminotransferase 23 U/L (14-59); Albumin Globulin Ratio 0.9; Albumin Level 3.3 g/dL (3.4-5.0); Alkaline Phosphatase 178 U/L (46-116); Amylase 31 U/L (25-115); Aspartate Amino Transferase 22 U/L (15-37); Bilirubin Direct 0.1 mg/dL (0.0-0.2); Bilirubin Total 0.2 mg/dL (0.2-1.0); Globulin 3.5 g/dL; Total Protein 6.8 g/dL (6.4-8.2)
[2024-04-20 15:04] LABS: Lactate/Lactic Acid 1.4 mmol/L (0.4-2.0)
--- NOTE | 2024-04-20 15:27 | CM.NOTE ---
Important Message From Medicare discussed with pt, pt verbalizes understanding and signs paper. Original given to pt and copy placed on pt's chart.
--- NOTE | 2024-04-20 15:50 | PC.NURSE ---
Kal Cuevas notified an hour ago for request for DR Fernandez to look at CXR done in ER to confirm PICC line placement. Kal dept called back at this time. She verbalizes that he had looked at it, but hasnt added an addendum yet to the original report. Told tech that fluids and antibiotics cannot be started until placement confirmed. Faith states she will try to get the doctor to add the addendum CURTIS
[2024-04-20] MEDS: LACTATED RINGER'S SOLUTION 1,000 ML 100 ML IV (16:00)
[2024-04-20] MEDS: LEVOFLOXACIN IN DEXTROSE 5 % 750 MG/150 ML PREMIX 100 MG IV (16:04)
[2024-04-20] MEDS: METHYLPREDNISOLONE SOD SUCC PF 125 MG/2 ML VIAL 60 MG IVP ×2 (16:04→21:32)
[2024-04-20] MEDS: IPRATROPIUM/ALBUTEROL SULFATE 3 ML AMPUL.NEB IH ×2 (16:06→23:15)
[2024-04-20] MEDS: PIPERACILLIN SODIUM/TAZOBACTAM 3.375 GM in 0.9 % SODIUM CHLORIDE 50 ML IV (17:35)
[2024-04-21] VITALS (20 sets, daily range): BP systolic 109–142; BP diastolic 69–86; PULSE 61–83; TEMP 36.5–36.8; O2SAT 92–97
[2024-04-21] MEDS: LACTATED RINGER'S SOLUTION 1,000 ML 100 ML IV ×3 (02:05→23:20)
[2024-04-21] MEDS: PIPERACILLIN SODIUM/TAZOBACTAM 3.375 GM in 0.9 % SODIUM CHLORIDE 50 ML IV ×3 (02:05→17:06)
[2024-04-21] MEDS: METHYLPREDNISOLONE SOD SUCC PF 125 MG/2 ML VIAL 60 MG IVP ×4 (03:45→23:20)
[2024-04-21] MEDS: IPRATROPIUM/ALBUTEROL SULFATE 3 ML AMPUL.NEB IH ×4 (04:00→22:20)
[2024-04-21 05:44] LABS: Hematocrit 35.5 % (36.0-48.0); Hemoglobin 11.5 g/dL (12.0-16.0); Mean Corpuscular HGB Conc 32.4 g/dL (29.9-35.2); Mean Corpuscular Hemoglobin 28.2 pg (26.7-34.0); Mean Platelet Volume 12.9 fL (9.5-13.5); Platelet Count 87 10^3/uL (150-450); Red Blood Count 4.08 10^6/uL (4.20-5.40); Red Cell Distribution Width 12.6 % (11.0-15.0); White Blood Count 2.5 10^3/uL (4.0-11.0)
[2024-04-21 06:01] LABS: Alanine Aminotransferase 25 U/L (14-59); Albumin Globulin Ratio 0.8; Alkaline Phosphatase 158 U/L (46-116); Anion Gap 8.5; Aspartate Amino Transferase 19 U/L (15-37); BUN Creatinine Ratio 10.4; Bilirubin Total 0.2 mg/dL (0.2-1.0); Calcium 7.7 mg/dL (8.5-10.1); Chloride 101 mmol/L (98-107); Estimated GFR (African America >60 (>=60); Estimated GFR (Non-African Ame >60 (>=60); Globulin 3.8 g/dL; Glucose 166 mg/dL (74-106); Potassium 3.5 mmol/L (3.5-5.1); Sodium 135 mmol/L (136-145); Total Protein 6.8 g/dL (6.4-8.2)
[2024-04-21 06:13] LABS: Atypical Lymphocytes Abs Man 0.05; Lymphocytes Absolute Manual 0.07 10^3/uL (1.20-3.80); Segmented Neut Absolute Manual 2.37 10^3/uL (1.4-6.5)
--- NOTE | 2024-04-21 06:49 | P.PN_ITS ---
Progress Note: Subjective Subjective Interval history: This is patient still with persistent cough this morning. No new complaints. Exam Constitutional Vital Signs, click to edit/add: Last Vital Signs Temp 97.7 F 04/21/24 03:49 Pulse 79 04/21/24 06:00 Resp 18 04/21/24 04:00 BP 109/69 04/21/24 03:49 Pulse Ox 97 04/21/24 04:00 O2 Del Method Room Air 04/21/24 04:00 Documenting provider has reviewed patient's vital signs: yes Common normals: no apparent distress HENMT Common normals: normocephalic Chest Common normals: inspection of chest normal Respiratory Common normals: normal respiratory effort, no retractions, no use of accessory muscles and clear to auscultation bilaterally Auscultation: diminished lung sounds Cardio Common normals: regular rate and regular rhythm Progress Note: Objective Labs Labs: Short CBC 04/20/24 04/21/24 Range/Units 10:19 05:26 WBC 6.1 2.5 L (4.0-11.0) 10^3/uL Hgb 12.1 11.5 L (12.0-16.0) g/dL Hct 36.7 35.5 L (36.0-48.0) % Plt Count 104 L 87 L (150-450) 10^3/uL BMP 04/20/24 04/21/24 10:19 05:26 Sodium 132 L 135 L Potassium 3.5 3.5 Chloride 99 101 Carbon Dioxide 30.1 29.0 BUN 9.0 7.0 Creatinine 0.68 0.67 Glucose 103 166 H Calcium 8.3 L 7.7 L Liver Function 04/20/24 04/21/24 Range/Units 10:19 05:26 Total Bilirubin 0.2 0.2 (0.2-1.0) mg/dL Direct Bilirubin 0.1 (0.0-0.2) mg/dL AST 22 19 (15-37) U/L ALT 23 25 (14-59) U/L Alkaline Phosphatase 178 H 158 H (46-116) U/L Albumin 3.3 L 3.0 L (3.4-5.0) g/dL Urine 04/20/24 Range/Units 10:20 Urine Color Lt. yellow (YELLOW) Urine Clarity Clear (CLEAR) Urine pH 7.0 (5.0-9.0) Ur Specific [place] 1.010 (1.005-1.025) Urine Protein Negative (NEG/TRACE) mg/dL Urine Glucose (UA) Negative (NEGATIVE) mg/dL Progress Note: A&P Assessment and Plan (1) Sepsis: Plan Admission findings: Fever, 101.3, sinus tachycardia, respiratory distress, thrombocytopenia, hyponatremia secondary to acute exacerbation of COPD from acute bronchitis complicated by currently undergoing chemotherapy for lung cancer resulting in immune deficiency with sepsis L Sepsis now with neutropenia with left shift consistent with bacterial process, while on chemo causing acute bronchitis causing acute exacerbation of COPD resulting in sepsis (fever, tachycardia, respiratory distress, neutropenia, source of infection lung)-patient is not a smoker but she has been exposed to smoke most of her life. Try to obtain sputum culture, IV antibiotics, aerosol treatments, low-dose steroids. Blood cultures pending, urine culture pending, trying to obtain sputum Hyponatremia likely secondary to mild dehydration-improved Thrombocytopenia secondary to chemotherapy and sepsis-deteriorated Elevated liver function test secondary to sepsis-improved Hyperglycemia-likely secondary to steroids-deteriorated today, continue to monitor Insomnia-patient would prefer to hold off on medications currently Admissions status: Patient with immune deficiency secondary to chemotherapy for lung cancer now with fever and neutropenic sepsis due to acute exacerbation of COPD due to acute bronchitis, medically necessary treatment will span 2 midnights. Inpatient status. ?
[2024-04-21] MEDS: LEVOFLOXACIN IN DEXTROSE 5 % 750 MG/150 ML PREMIX 100 MG IV (15:14)
--- NOTE | 2024-04-21 18:40 | DIETREC ---
Recommend 237 mL Ensure Original BID to supplement meal intakes, which average 25%. TigerText to Dr. Baker.
[2024-04-22] VITALS (10 sets, daily range): BP systolic 107–109; BP diastolic 65–67; PULSE 61–75; TEMP 36.5; O2SAT 92–95
[2024-04-22] MEDS: PIPERACILLIN SODIUM/TAZOBACTAM 3.375 GM in 0.9 % SODIUM CHLORIDE 50 ML IV ×2 (03:01→11:30)
[2024-04-22] MEDS: METHYLPREDNISOLONE SOD SUCC PF 125 MG/2 ML VIAL 60 MG IVP ×2 (03:07→09:26)
[2024-04-22] MEDS: BENZONATATE 100 MG CAPSULE 200 MG PO (03:09)
[2024-04-22] MEDS: IPRATROPIUM/ALBUTEROL SULFATE 3 ML AMPUL.NEB IH ×2 (04:27→11:41)
[2024-04-22 06:55] LABS: Basophils Percent Auto 0.2 % (0.2-2.0); Hematocrit 34.3 % (36.0-48.0); Hemoglobin 11.3 g/dL (12.0-16.0); Immature Granulocytes Abs Auto 0.02 10^3/uL (0.00-0.03); Immature Granulocytes Pct Auto 0.3 % (0.0-0.5); Lymphocytes Absolute Auto 0.4 10^3/uL (1.2-3.8); Mean Corpuscular HGB Conc 32.9 g/dL (29.9-35.2); Mean Corpuscular Hemoglobin 28.9 pg (26.7-34.0); Mean Corpuscular Volume 87.7 fL (81.0-99.0); Mean Platelet Volume 10.8 fL (9.5-13.5); Monocytes Absolute Auto 0.1 10^3/uL (0.3-0.8); Monocytes Percent Auto 0.8 % (1.7-12.0); Neutrophils Absolute Auto 5.5 10^3/uL (1.4-6.5); Neutrophils Percent Auto 92.7 % (43.0-75.0); Platelet Count 184 10^3/uL (150-450); Red Blood Count 3.91 10^6/uL (4.20-5.40); Red Cell Distribution Width 12.8 % (11.0-15.0)
[2024-04-22 07:16] LABS: Alanine Aminotransferase 27 U/L (14-59); Albumin Globulin Ratio 0.9; Alkaline Phosphatase 147 U/L (46-116); Aspartate Amino Transferase 23 U/L (15-37); BUN Creatinine Ratio 14.1; Bilirubin Total 0.2 mg/dL (0.2-1.0); Calcium 7.7 mg/dL (8.5-10.1); Carbon Dioxide 28.8 mmol/L (21.0-32.0); Chloride 104 mmol/L (98-107); Estimated GFR (African America >60 (>=60); Estimated GFR (Non-African Ame >60 (>=60); Globulin 3.4 g/dL; Glucose 157 mg/dL (74-106); Potassium 3.8 mmol/L (3.5-5.1); Sodium 137 mmol/L (136-145); Total Protein 6.4 g/dL (6.4-8.2)
--- NOTE | 2024-04-22 08:13 | P.DS_ITS ---
DS: Providers Provider Date of admission: 04/20/24 14:19 Primary care physician: Mark Baker MD Consults: 04/20/24 14:37 Consult to Pharmacy Routine Consulting Provider: Reason for consultation: Please Terra Bella me when Med Rec is Updated Has provider been notified: No Occupational Therapy Eval and Treat Routine Reason for consultation: Only if needed for Rehab Has provider been notified: No Physical Therapy Eval and Treat Routine Reason for consultation: Eval and Treat Has provider been notified: No DS: Diagnosis Discharge Diagnosis (1) Sepsis: Assessment and plan: Admission findings: Fever, 101.3, sinus tachycardia, respiratory distress, thrombocytopenia, hyponatremia secondary to acute exacerbation of COPD from acute bronchitis complicated by currently undergoing chemotherapy for lung cancer resulting in immune deficiency with sepsis Sepsis now with neutropenia with left shift consistent with bacterial process, while on chemo causing acute bronchitis causing acute exacerbation of COPD resulting in sepsis (fever, tachycardia, respiratory distress, neutropenia, source of infection lung)-state with further fevers Hyponatremia likely secondary to mild dehydration-resolved Thrombocytopenia secondary to chemotherapy and sepsis-back to normal today, not sure I believe labs Elevated liver function test secondary to sepsis-improved Hyperglycemia-likely secondary to steroids-deteriorated today, continue to monitor Insomnia-patient would prefer to hold off on medications currently Admissions status: Patient with immune deficiency secondary to chemotherapy for lung cancer now with fever and neutropenic sepsis due to acute exacerbation of COPD due to acute bronchitis, medically necessary treatment will span 2 midnights. Inpatient status. ? ? DS: Summary Hospital Course Hospital Course: Patient is currently undergoing chemotherapy for lung cancer, presented with acute fever greater than 102. Blood cultures sputum culture urine culture all obtained. She defervesced in the first 24 hours. She was maintained on IV antibiotics pending culture results. Patient high risk for severe sepsis with septic shock with her history of lung cancer and immune deficiency based on chemotherapy. She did develop neutropenia on day 2. Left shift persisting consistent with acute bacterial process. With this finding she was maintained on the IV antibiotics for 2 days. Cultures if they come back as no growth today she will be discharged home in improving condition. Medications see list. See me in the office in 2 days. Status at Discharge Overall status at discharge: patient is not back to baseline Time Spent with Patient Time attestation: Total time spent providing and/or coordinating discharge services: Time spent: greater than 30 minutes Exam Constitutional Vital Signs, click to edit/add: Last Vital Signs Temp 97.7 F 04/22/24 03:19 Pulse 61 04/22/24 06:00 Resp 18 04/22/24 04:27 BP 107/67 04/22/24 03:19 Pulse Ox 94 L 04/22/24 04:27 O2 Del Method Room Air 04/22/24 04:27 Documenting provider has reviewed patient's vital signs: yes Common normals: no apparent distress HENMT Common normals: normocephalic Chest Common normals: inspection of chest normal Respiratory Common normals: normal respiratory effort, no retractions, no use of accessory muscles and clear to auscultation bilaterally Auscultation: diminished lung sounds Cardio Common normals: regular rate and regular rhythm DS: Data Data Completed and Pending Labs on day of discharge: Labs from last 24 hours 04/22/24 05:45 WBC 6.0 RBC 3.91 L Hgb 11.3 L Hct 34.3 L MCV 87.7 MCH 28.9 MCHC 32.9 RDW 12.8 Plt Count 184 MPV 10.8 Neut % (Auto) 92.7 H Lymph % (Auto) 6.0 L [place] % (Auto) 0.8 L Eos % (Auto) 0.0 L Baso % (Auto) 0.2 Neut # (Auto) 5.5 Lymph # (Auto) 0.4 L [place] # (Auto) 0.1 L Eos # (Auto) 0.0 Baso # (Auto) 0.0 Abs Immat Gran (auto) 0.02 Imm/Tot Granulo (auto) 0.3 Sodium 137 Potassium 3.8 Chloride 104 Carbon Dioxide 28.8 Anion Gap 8.0 BUN 9.0 Creatinine 0.64 Est GFR ( Amer) >60 Est GFR (Non-Af Amer) >60 BUN/Creatinine Ratio 14.1 Glucose 157 H Calcium 7.7 L Total Bilirubin 0.2 AST 23 ALT 27 Alkaline Phosphatase 147 H Total Protein 6.4 Albumin 3.0 L Globulin 3.4 Albumin/Globulin Ratio 0.9 Discharge Plan Discharge Disposition: Home, Self-Care Condition: Good Discharge Medications: New levofloxacin 500 mg tablet 500 mg PO DAILY 10 Days Qty: 10 0RF Continued multivitamin [Daily Multi-Vitamin] Tablet 1 tab PO DAILY acetaminophen-codeine 300-30 mg tablet 2 tab PO Q8H PRN (Reason: pain) fentanyl 25 mcg/hr patch 72 hour 1 patch topical Q72H ibuprofen 600 mg tablet 600 mg PO Q8H PRN (Reason: pain) ondansetron 4 mg tablet,disintegrating 4 mg PO Q8H PRN (Reason: nausea and vomiting) prochlorperazine maleate 10 mg tablet 10 mg PO Q8H PRN (Reason: nausea and vomiting) dexamethasone 2 mg tablet 4 mg PO .qd Discontinued amoxicillin-pot clavulanate 875-125 mg tablet 1 tab PO BID Activity: resume usual activities as tolerated Diet: advance to your usual diet Print Language: Kazakh Patient Instructions: Levofloxacin (By mouth) (Jaiden Hwang), Chronic Bronchitis (DC) Forms: Portal Instructions Follow Up Appointments: Call Dr. Peterson office on wednesday and let them know he wants you to be seen that day # Discharge Date/Time: 04/22/24 14:13
--- NOTE | 2024-04-25 15:57 | CM.DCFOLLOWU ---
1st attempt 04/25/24, no answer
--- NOTE | 2024-04-27 14:04 | CM.DCFOLLOWU ---
Person spoke with:patient How are you feeling?well How is your pain?none Did you understand your discharge instructions?yes Do you have any questions about your discharge instructions? no Were you given any prescriptions at discharge? yes Were you able to get your prescriptions filled?yes Do you understand how to take your medications as ordered? yes Do you have any questions about your follow up appointment and do you plan to keep your follow up appointment? no questions, follow up scheduled Is there anything else that you would like to discuss?no Questions/Comments/Concerns/Other: none
== END 2024-04-22 14:13 | disposition home or self-care (01) | DRG 872 ==
LOC: ER 13:14 → MS 14:23
PROVIDERS: Admitting Provider Family Medicine; Emergency Provider Emergency Medicine; PCP Family Medicine; Visit Provider Family Medicine
DX: A41.9 Sepsis, unspecified organism (principal); E87.1 Hypo-osmolality and hyponatremia; J44.0 Chronic obstructive pulmonary disease with (acute) lower respiratory infection; J44.1 Chronic obstructive pulmonary disease with (acute) exacerbation; C34.90 Malignant neoplasm of unspecified part of unspecified bronchus or lung; C34.11 Malignant neoplasm of upper lobe, right bronchus or lung; C77.1 Secondary and unspecified malignant neoplasm of intrathoracic lymph nodes; C78.7 Secondary malignant neoplasm of liver and intrahepatic bile duct; C79.51 Secondary malignant neoplasm of bone; D84.9 Immunodeficiency, unspecified; D70.9 Neutropenia, unspecified; R79.89 Other specified abnormal findings of blood chemistry; G47.00 Insomnia, unspecified; R73.9 Hyperglycemia, unspecified; J20.9 Acute bronchitis, unspecified; R06.03 Acute respiratory distress; E86.0 Dehydration; D69.59 Other secondary thrombocytopenia; T45.1X5A Adverse effect of antineoplastic and immunosuppressive drugs, initial encounter; Z79.60 Long term (current) use of unspecified immunomodulators and immunosuppressants; Z77.22 Contact with and (suspected) exposure to environmental tobacco smoke (acute) (chronic); Z86.16 Personal history of COVID-19; Z90.710 Acquired absence of both cervix and uterus; Z79.899 Other long term (current) drug therapy; Z20.822 Contact with and (suspected) exposure to COVID-19
CPT/HCPCS: 36415; 36569; 36592; 71045; 80048; 80053; 80076; 81001; 82150; 83605; 83690; 83735; 84443; 85007; 85025; 85027; 87040; 87045; 87046; 87070; 87086; 87427; 87493; 87811; 93005; 94640; 94667; 94668; 94761; 96366; 96367; 96368; 96372; 96375; 96413; 96417; 99285; C1887; G0463; J0185; J1100; J2469; J2543; J2919; J3420; J3489; J9045; J9271; J9305

== ENCOUNTER 2024-04-25 10:42 | Outpatient (REF) | payer MEDICARE, SELFPAY ==
--- OUTSIDE RECORDS SUMMARY | 2024-04-25 11:03 | XMS_ITS | CCD ---
Author Organization [facility] Care Team Providers Care Safe Deposit Clerk Name Role Phone LETITIA, DR GUTIERREZ Primary Care Unavailable LETITIA, DR GUTIERREZ Admitting Unavailable LETITIA, DR GUTIERREZ Attending Unavailable LETITIA, DR GUTEIRREZ Consulting Unavailable WEST, DR JOAQUIM Ashton Consulting Unavailable LETITIA, DR GUTIERREZ Primary Care Unavailable LETITIA, DR GUTIERREZ Admitting Unavailable HOY, DR GUTIERREZ Attending Unavailable TESFAYEY, DR GUTIERREZ Consulting Unavailable ZIEBER, DR CARIE Edwards Consulting Unavailable [facility] [place], DO Vj Attending Provider [facility], Vj Attending Unavailable [facility], Vj Admitting Unavailable OMBALLI, MOHAMED Referring Unavailable OMBALLI, MOHAMED Referring Unavailable OMBALLI, MOHAMED Attending Unavailable OMBALLI, MOHAMED Referring Unavailable Allergies Allergy Classification Reported Allergen(s) Allergy Type Date of Onset Reaction(s) Facility (1 source) ALLERGIES NOT ON FILE; Translations: [ALLERGIES NOT ON FILE] Propensity to adverse reactions (disorder) [facility] Repository Problems Problem Classification Problem Date [...] 04-06-2024 HP - Attestation signed by Rom Blackmon MD at 04/06/2024 11:16 AM Re-explained the procedure to the patient along with the associated risk of pneumothorax, bleeding, hypoxia, and respiratory failure. Patient is agreeable and will proceed with the scheduled bronchoscopy and EBUS TBNA Rom Blackmon MD Interventional Pulmonary Medicine Pulmonary and Critical Care Medicine [facility] History Of Present Illness 68 years [...] chart. -Results will be sent to Dr. Chester [facility] NON-AIRFRAME DESIGN ENGINEER CYTOLOGY - CELLULAR EXAMon 04-06-2024 LAB AP ADDENDUM 1 Normal [facility] Comment on above: Result Comment: This case ([id number]) was sent to [facility] for the [place] [address] Tissue Next and PDL1 22C3 assays. The results read as follows: Detected Alterations and Biomarkers with Associated Treatment Options or Clinical Trials TP53: I195T RAF1: P261R Additional Biomarkers Tumor Mutational [place] (TMB): 4.0 mut/Mb MSI Status: Stable PD-L1 22C3 TPS: 13% We evaluated this sample for MSI, TMB, and alterations in 498 genes, including the following guideline-recommended genes for NSCLC: ALK, BRAF, EGFR, ERBB2, KRAS, MET, NTRK, RET, ROS1 Comment: On pathologic review, this sample has an H&E tumor content near the limit of detection for this assay, which may adversely impact the analytic sensitivity of the TissueNext test. See separate Guardant 360 report for a complete description with interpretive content and potential clinical trials. Addendum electronically signed by Linnea Palumbo MD on 2024 at 9:29 AM Performed By: #### L AB13 ####[facility] (BEAKER)[address] [facility] [place] [address] LAB AP CASE REPORT Normal [facility] Comment on above: Result Comment: Non- gynecologic Cytology Case: [id number] Authorizing Provider: Rom Blackmon MD Collected: 04/06/2024 1145 Ordering Location: [facility] Main Operating Room Received: 04/06/2024 1425 Pathologist: Linnea Palumbo MD Specimen: Lymph Node Station 4R Performed By: #### L AB13 ####[facility] (BEAKER)[address] [facility] [place] [address] LAB AP CLINICAL INFORMATION [facility] Comment on above: Result Comment: Hist ory of adenocarcinoma of the right upper lobe, molecular testing requested Performed By: #### L AB13 ####[facility] (BEAKER)[address] [place] [address] LAB AP DIAGNOSIS COMMENT There is a moderate amount of tumor cells present in the cell block for additional studies, if clinically indicated. Normal [facility] Comment on above: Performed By: #### L AB13 ####[facility] (BEAKER)[address] [place] [address] LAB AP GROSS DESCRIPTION [facility] Comment on above: Result Comment: 2 ai r-dried slides, 2 alcohol-fixed slides, 30 mL CytoLyt with hazy, red fluid and clots Performed By: #### L AB13 ####[facility] ([facility])[address] [place] [address] LAB AP INTRAOPERATIVE CONSULTATION [facility] Comment on above: Result Comment: Darshan Lassiter ym Node Station 4R. Rapid on-site evaluation was [...] material submitted.* Performed By: #### L AB13 ####[facility] ([facility])[address] [place] [address] LAB AP MICROSCOPIC DESCRIPTION A. Satisfactory for evaluation. Examination of the prepared smears and cell block reveals numerous tumor cells arranged in clusters and as single cells with finely vacuolated cytoplasm, high n/c ratio, and enlarged nuclei with irregular chromatin and prominent nucleoli. [facility] Comment on above: Performed By: #### L AB13 ####[facility] ([facility])[address] [place] [address] LAB AP REPORT FINAL DIAGNOSIS NARRATIVE [facility] Comment on above: Result Comment: Darshan Lassiter ymph node, station 4R, EBUS-guided fine needle aspiration: - Metastatic adenocarcinoma. Performed By: #### L AB13 ####[facility] ([facility])[address] [place] [address] NURSNOTEon 04-06-2024 NURSNOTE Discharge instructions reviewed with patient sister at bedside. All questions answered at this time Cass Lucero RN PACU [facility] NURSNOTE No chest xray needed post op at this time per Dr. Lorri Lucero HOSTAGE NEGOTIATOR Normal [facility] POCT GLUCOSE METER UNSOLICIT ED RESULTSon 04-06-2024 Glucose [Mass/Vol] 104 mg/dL Normal 70-105 [facility] Comment on above: Order Comment: Waive d Testing in the ED is performed under the ED CLIA certificate #[id number]. Result Comment: ngro rodriguez Performed By: #### L [id number] #### [facility] HOSPITAL LAB (BEAKER) [address] [place] [address] Prep for Procedureon 024 Prep for Procedure [id number] Isela De La Rosa 1955 F Date Provider Department Center 04/04/2024 [facility] [place] No family history on file Normal [facility] Abstracton 04-03-2024 Abstract [id number] sIela De La Rosa 1955 F Date Provider Department Center 04/03/2024 [facility] No family history on file Normal [facility] Orders Onlyon 04-03-2024 Orders Only [id number] Isela De La Rosa 1955 Date Provider Department Center 04/03/2024 [facility] No family history on file Normal [facility] Umer 02-15-2024 L Specimen: [id number] Received: 02/16/24 Status: PEGGY Abreu Num: [id number] Spec Type: Surgical Subm Dr: Vj Glass DO Tissues: A Lung - Transbroncial Biopsy (RT UPPER LOBE MASS BX) Procedures: HE/2, Gross/Micro L4, CK5 6, CK20, CK 7, NAPSIN A, TTF1, IHC First AB, IHC Add AB/5, p40 Age/ Patient Sex Location Account Attending Physician Isela De La Rosa 68/F LABELL [id number] Vj Glass DO SPEC NUM: [id number] RECD: 02/16/24 STATUS: PEGGY ABREU NUM: [id number] KIMBERLYN: 02/15/[address]: Vj Glass DO ENTERED: 02/16/[address] [facility] [address]: Jesu,Lab SPEC TYPE: Surgical DEPT: DENISSE HUMPHRIES ORDERED: [...] adenocarcinoma. Clinical correlation is required. -------- Specimen: [id number] Received: 02/16/24 Status: SOUT Revalerie Num: [id number] Spec Type: Surgical Subm Dr: Vj Glass DO Tissues: A Lung - Transbroncial Biopsy (RT UPPER LOBE MASS BX) Procedures: HE/2, Gross/Micro L4, CK5 6, CK20, CK 7, NAPSIN A, TTF1, IHC First AB, IHC Add AB/5, p40 -------- Patient: Isela De La Rosa [id number] (Continued) -------- Specimen: [id number] Received: 02/16/24 (Continued) Signed (signature on file) Rom Garcia MD 02/23/24 1658 -------- Specimen: [id number] Received: 02/16/24 Status: PEGGY Abreu Num: [id number] Spec Type: Surgical Subm Dr: Vj Glass DO Tissues: A Lung - Transbroncial Biopsy (RT UPPER LOBE MASS BX) Procedures: HE/2, Gross/Micro L4, CK5 6, CK20, CK 7, NAPSIN A, TTF1, IHC First AB, IHC Add AB/5, p40 -------- Patient: Isela De La Rosa [id number] (Continued) -------- Specimen: [id number] Received: 02/16/24 (Continued) Clinical Information Abnormal bronchial mucosa of the right upper lobe Gross Description Received in formalin labeled with the patient's name, date of and right upper lobe mass biopsy are 3 delicate meeks tissue fragments ranging from 0.4 x 0.1 x 0.1 cm to 0.3 x 0.1 x 0.1 cm, entirely submitted in A1. CPT Codes 59775 00480 50692a6 -------- -------- Specimen: [id number] Received: 02/16/24 Status: PEGGY Abreu Num: [id number] Spec Type: Surgical Subm Dr: Vj Glass DO Tissues: A Lung - Transbroncial Biopsy (RT UPPER LOBE MASS BX) Procedures: HE/2, Gross/Micro L4, CK5 6, CK20, CK 7, NAPSIN A, TTF1, IHC First AB, IHC Add AB/5, p40 -------- Patient: Isela De La Rosa [id number] (Continued) -------- Signed (signature on file) Rom Garcia MD 02/23/24 3740 Normal [facility] L Specimen: [id number] Received: 02/16/24 Status: PEGGY Abreu Num: [id number] Spec Type: Cytology Subm Dr: Vj Glass DO Tissues: A [facility] ([facility]) Procedures: HE/2, Gross/Micro L4, Cyto Prepstain, PAPSTN Age/ Patient Sex Location Account Attending Physician Isela De La Rosa 68/F LABELL [id number] Vj Glass DO SPEC NUM: [id number] RECD: 02/16/24 STATUS: KERIOswaldo ABREU NUM: [id number] KIMBERLYN: 02/15/24-[address]: Vj Glass DO ENTERED: 02/16/[address] [facility] [address]: Jesu,Lab SPEC TYPE: Cytology DEPT: DENISSE SHI ENTERED BY: [id number] RECV BY: [id number] ORDERED: HE/2, Gross/Micro L4, Cyto Prepstain, PAPSTN ORDERED: HE/2, Gross/Micro L4, Cyto Prepstain, PAPSTN Pathological Diagnosis Right lung, bronchial washings: Negative for malignant cells. Clinical Information Right lung mass Gross Description Received fresh is 8 ml red cloudy unfixed fluid for cytology said to have been obtained as Right upper lobe lavage. ThinPrep and cell block preparations are prepared for microscopic examination.( [place]/ar) CPT Codes 39817 -------- -------- Specimen: [id number] Received: 02/16/24 Status: PEGGY Abreu Num: [id number] Spec Type: Cytology Subm Dr: Vj Glass DO Tissues: Stewart ORTIZ ([facility]) Procedures: HE/2, Gross/Micro L4, Cyto Prepstain, PAPSTN -------- Patient: Isela De La Rosa [id number] (Continued) -------- Signed (signature on file) Rom Garcia MD 02/23/24 1536 Normal [facility] [place] STRESS/REST MULTIon 06-10 NM STRESS/REST MULTI Patient: ISELA DE LA ROSA Exam Date: 06/10/2021 : 1955 Gender:F Ordering : DR BRENDA DONG . Admission #: [id number] Family : Order #: [id number] CLICK HERE TO VIEW EXAM RADIOLOGY REPORT [...] Maravilla MD on 06/10/2021 at 12:59 Normal [facility] Encounters Encounter Date Encounter Type Care Provider Facility Start: 04-06-2024 End: 04-06-2024 ambulatory [facility] Start: 04-03-2024 End: 04-03-2024 ambulatory [facility] Start: 02-15-2024 End: 02-15-2024 ambulatory [facility] Work Phone: Start: 02-15-2024 End: 02-15-2024 Departed Referred DO [facility] Work Phone: [facility] Path [facility] Start: 08-08-2021 End: 08-09-[address] BRENDA DONG Facility:[facility] Start: 06-10-2021 End: 06-11-[address] BRENDA DONG Facility:[facility] Payers Date Payer Category Payer Self-pay 2022 Medicare [id number] 1958 Unknown [id number] 1955 Unknown [id number] 1955 Unknown [id number] Private Health Insurance [employer] Insurance [facility] [id number] Social History Date Type [facility]ail [facility] Work Phone: Start: 1955 Sex Assigned At Female F [facility] Clinical Note 04-06-2024 Note Date & Type Note Facility 04-06-2024 Note Patient: Isela edwards Procedure Summary Date: 04/06/24 Room / Location: [facility] Main Operating Room Anesthesia Start: 1126 Anesthesia Stop: 1214 Procedure: BRONCHOSCOPY Diagnosis: Malignant neoplasm of lung, unspecified laterality, unspecified part of lung (CMS/HCC) Mediastinal adenopathy Scheduled Providers: Rom Blackmon MD Responsible Provider: Kevon Lamar MD Anesthesia [...] no known notable events for this encounter. [facility] Procedure note 04-06-2024 Note Date & Type Note Facility 04-06-2024 Note Airway Date/Time: 04/06/2024 11:32 AM Urgency: elective Airway not difficult General Information and Staff Patient location during procedure: OR Anesthesiologist: Kevon Lamar MD Resident/GROCERY TEAM MEMBER/CAA: Ananda Villatoro MD Performed: resident/GROCERY TEAM MEMBER/CAA Indications and Patient Condition Indications for airway [...] 22 Number of attempts at approach: 1 [facility] Clinical Note 04-06-2024 Note Date & Type Note Facility 04-06-2024 Note Patient: Isela edwards Procedure Summary Date: 04/06/24 Room / Location: [facility] Main Operating Room Anesthesia Start: 1126 Anesthesia Stop: 1214 Procedure: BRONCHOSCOPY Diagnosis: Malignant neoplasm of lung, unspecified laterality, unspecified part of lung (CMS/HCC) Mediastinal adenopathy Scheduled Providers: Rom Blackmon MD Responsible Provider: Kevon Lamar MD Anesthesia Type: general ASA Status: 2 Anesthesia Post Transport Note Transport to: PACU O2 Route: room air and face mask Oxygen Flow (L/min): 8 Patient Monitor: direct observation Transport: uneventful Patient condition is: stable Comments: Patient was able to respond and follow verbal commands throughout transport process [facility] Clinical Note 04-06-2024 Note Date & Type Note Facility 04-06-2024 Note Patient: Isela edwards Procedure Information Date/Time: 04/06/24 1130 Scheduled providers: Rom Blackmon MD Procedure: BRONCHOSCOPY Location: [facility] Main Operating Room Relevant Problems No relevant [...] 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 Additional Equipment Requests [facility] Progress note 04-03-2024 Note Date & Type Note Facility 04-03-[address] Chester . Patient needs more tissue for molecular testing. EBUS order placed [facility] Clinical Note 08-08-2021 Note Date & [...] by: CARIE VELÁZQUEZ Date: 2021-08-08 14:54 [facility] Evaluation note Note Date & Type Note Facility Evaluation note No assessment information availa [facility] Work Phone: Summary Purpose Family History No Family History Records FoundNo Family History Records FoundNo Family History Records Found Advance Directives No Advanced Directives Records FoundNo Advanced Directives Records FoundNo Advanced Directives Records Found Additional Source Comments INFORMATION SOURCE (unrecogn ized section and content) DATE CREATED AUTHOR 08/13/2021 [facility] DATE CREATED AUTHOR AUTHOR'S ORGANIZ ATION 04/15/2024 [facility] DATE CREATED AUTHOR AUTHOR'S ORGANIZ ATION 2024 [facility] Care Teams (unrecognized sec tion and content) [...] BE BASED ON THE PRIMARY CLINICAL RECORDS. [facility] [employer] provides no warranty or guarantee of the accuracy or completeness of information in this document.
== END 2024-04-25 10:43 | disposition home or self-care (01) ==
LOC: LAB 10:42
PROVIDERS: PCP Family Medicine; Visit Provider Family Medicine
DX: R50.9 Fever, unspecified (principal)
CPT/HCPCS: 87070; 87205

== ENCOUNTER 2024-05-23 13:31 | Outpatient (RCR) | payer MEDICARE, SELFPAY ==
--- NOTE | 2024-05-02 16:15 | PC.NURSE ---
1500 Arrival ambulatory,alert orientd. PICC intact left upper arm. site clear. old dressing removed. site cleansed with chlorhexadine, skin prep applied. new chg dressing and stat lock applied. 0 cm external catheter length. caps changed, excellent blood return, flushes easily, flushed with ns, new caps and chg caps applied. released ambulatory
[2024-05-09 08:49] VITALS: BP 148/82; PULSE 80; TEMP 36.1; O2SAT 96
[2024-05-09] MEDS: 0.9 % SODIUM CHLORIDE 250 ML 10 ML IV (09:00)
[2024-05-09 09:21] LABS: Basophils Percent Auto 0.6 % (0.2-2.0); Eosinophils Percent Auto 0.3 % (0.9-7.0); Hematocrit 34.2 % (36.0-48.0); Hemoglobin 11.2 g/dL (12.0-16.0); Immature Granulocytes Abs Auto 0.01 10^3/uL (0.00-0.03); Immature Granulocytes Pct Auto 0.3 % (0.0-0.5); Lymphocytes Absolute Auto 0.9 10^3/uL (1.2-3.8); Lymphocytes Percent Auto 25.8 % (20.5-60.0); Mean Corpuscular HGB Conc 32.7 g/dL (29.9-35.2); Mean Corpuscular Hemoglobin 28.9 pg (26.7-34.0); Mean Corpuscular Volume 88.4 fL (81.0-99.0); Mean Platelet Volume 9.8 fL (9.5-13.5); Monocytes Absolute Auto 0.7 10^3/uL (0.3-0.8); Monocytes Percent Auto 19.5 % (1.7-12.0); Neutrophils Absolute Auto 1.9 10^3/uL (1.4-6.5); Neutrophils Percent Auto 53.5 % (43.0-75.0); Platelet Count 273 10^3/uL (150-450); Red Blood Count 3.87 10^6/uL (4.20-5.40); Red Cell Distribution Width 13.6 % (11.0-15.0); White Blood Count 3.5 10^3/uL (4.0-11.0)
[2024-05-09 09:47] LABS: Alanine Aminotransferase 30 U/L (14-59); Albumin Globulin Ratio 0.9; Albumin Level 3.3 g/dL (3.4-5.0); Alkaline Phosphatase 150 U/L (46-116); Anion Gap 16.1; Aspartate Amino Transferase 26 U/L (15-37); BUN Creatinine Ratio 2.9; Bilirubin Total 0.3 mg/dL (0.2-1.0); Carbon Dioxide 24.5 mmol/L (21.0-32.0); Chloride 105 mmol/L (98-107); Estimated GFR (African America >60 (>=60 mL/min/1.73m^2); Estimated GFR (Non-African Ame >60 (>=60 mL/min/1.73m^2); Globulin 3.8 g/dL; Glucose 91 mg/dL (74-106); Magnesium 2.2 mg/dL (1.8-2.4); Potassium 3.6 mmol/L (3.5-5.1); Sodium 142 mmol/L (136-145); TSH W/ REFLEX FT4 5.193 uIU/mL (0.358-3.740); Total Protein 7.1 g/dL (6.4-8.2)
--- NOTE | 2024-05-09 09:56 | PC.NURSE ---
0849:Pt to [facility] amb. for chemo treatment and office visit. Accompanied by daughter. Weight obtained. Seated in recliner. VSS. PICC line intact to left upper arm and without s&s of infection or infiltration. Flushes easily with good blood return. Labs obtained as ordered. Dressing to PICC line changed. Pt. tolerated without c/o. Given blanket and pillow. 0920: Breakfast provided. 0950: Labs resulted, pharmacy notified to proceed with chemo. Dr. hCester at chairside to speak with patient.
[2024-05-09 10:38] LABS: Free T4 0.91 ng/dL (0.76-1.46)
[2024-05-09] MEDS: PALONOSETRON HCL 0.25 MG/5 ML VIAL IV (10:46)
[2024-05-09] MEDS: DEXAMETHASONE SODIUM PHOSPHATE 10 MG in 0.9 % SODIUM CHLORIDE 100 ML 303 MG IV (10:49)
[2024-05-09] MEDS: APREPITANT 130 MG in 0.9 % SODIUM CHLORIDE 100 ML 236 MG IV (11:15)
[2024-05-09] MEDS: PEMBROLIZUMAB 200 MG in 0.9 % SODIUM CHLORIDE 100 ML 216 MG IV (11:59)
--- NOTE | 2024-05-09 12:52 | PC.NURSE ---
1046: Pre-meds initiated at this time. Pt. without c/o or needs. 1159: Keytruda infusion initiated at this time. Lunch tray provided. Charu at chairside.
[2024-05-09 13:10] VITALS: BP 115/76; PULSE 76; TEMP 36.6; O2SAT 94
[2024-05-09] MEDS: PEMETREXED DISODIUM IV (13:15)
[2024-05-09] MEDS: SODIUM CHLORIDE 0.9% IV (13:15)
--- NOTE | 2024-05-09 14:01 | PC.NURSE ---
1235: Keytruda infused without s&s of adverse reaction. IV Carboplatin initiated. Pt. eating lunch. Denies needs.
--- NOTE | 2024-05-09 14:13 | PC.NURSE ---
1308: Carboplatin infusion completed without s&s of adverse reaction. VSS. 1315: Alimta infusion initiated. Pt. denies needs or c/o. 1330: Infusions completed without adverse reactions. Reminded pt. what to watch for at home and to seek medical attention if needed. Pt. relays understanding. PICC line flushed with saline. Pt. to bathroom. 1345: Pt. d/c'd amb. to home with daughter.
[2024-05-10] MEDS: PEGFILGRASTIM 6 MG/0.6 ML SYRINGE SQ (14:15)
[2024-05-10 14:28] VITALS: BP 140/80; PULSE 100; TEMP 36.3; O2SAT 97
--- NOTE | 2024-05-10 14:30 | PC.NURSE ---
Here for injection. educated on need to take claritin for 3 days post injection to reduce bone pain. verbalizes understanding.
[2024-05-16 09:07] VITALS: BP 142/87; PULSE 86; TEMP 35.8; O2SAT 96
[2024-05-16 09:22] LABS: Hemoglobin 11.2 g/dL (12.0-16.0); Mean Corpuscular HGB Conc 32.9 g/dL (29.9-35.2); Mean Corpuscular Volume 88.1 fL (81.0-99.0); Mean Platelet Volume 11.5 fL (9.5-13.5); Platelet Count 156 10^3/uL (150-450); Red Blood Count 3.86 10^6/uL (4.20-5.40); Red Cell Distribution Width 13.8 % (11.0-15.0); White Blood Count 14.3 10^3/uL (4.0-11.0)
[2024-05-16 09:33] LABS: Alanine Aminotransferase 52 U/L (14-59); Albumin Globulin Ratio 0.9; Albumin Level 3.4 g/dL (3.4-5.0); Alkaline Phosphatase 201 U/L (46-116); Anion Gap 14.9; Aspartate Amino Transferase 28 U/L (15-37); BUN Creatinine Ratio 12.9; Bilirubin Total 0.2 mg/dL (0.2-1.0); Calcium 8.6 mg/dL (8.5-10.1); Carbon Dioxide 25.9 mmol/L (21.0-32.0); Chloride 100 mmol/L (98-107); Estimated GFR (African America >60 (>=60 mL/min/1.73m^2); Estimated GFR (Non-African Ame 55 (>=60 mL/min/1.73m^2); Globulin 3.6 g/dL; Glucose 104 mg/dL (74-106); Potassium 3.8 mmol/L (3.5-5.1); Sodium 137 mmol/L (136-145)
[2024-05-16 09:46] LABS: Lymphocytes Absolute Manual 0.57 10^3/uL (1.20-3.80); Segmented Neut Absolute Manual 11.72 10^3/uL (1.4-6.5)
[2024-05-16] MEDS: ZOLEDRONIC ACID IV (10:45)
[2024-05-16] MEDS: SODIUM CHLORIDE 0.9% IV (10:45)
[2024-05-16] MEDS: 0.9 % SODIUM CHLORIDE 250 ML 10 ML IV (10:45)
--- NOTE | 2024-05-16 13:51 | PC.NURSE ---
1115 infusion completed, tolerated well. picc flushed, Released ambulatory
--- NOTE | 2024-05-23 16:24 | PC.NURSE ---
1400 Arrival ambulatory, alert oriented. PICC intact, site clear old dressing removed, tolerated well. new stat lock applied. chg dressing applied, caps changed.
== END 2024-05-25 23:59 | disposition home or self-care (01) ==
LOC: HEMC 13:31
PROVIDERS: PCP Family Medicine; Visit Provider Internal Medicine Hematology & Oncology
DX: Z51.11 Encounter for antineoplastic chemotherapy (principal); C34.11 Malignant neoplasm of upper lobe, right bronchus or lung; R11.2 Nausea with vomiting, unspecified; C77.1 Secondary and unspecified malignant neoplasm of intrathoracic lymph nodes; C78.7 Secondary malignant neoplasm of liver and intrahepatic bile duct; C79.51 Secondary malignant neoplasm of bone; D64.9 Anemia, unspecified; D69.6 Thrombocytopenia, unspecified; Z79.899 Other long term (current) drug therapy; D70.1 Agranulocytosis secondary to cancer chemotherapy; Z90.710 Acquired absence of both cervix and uterus; Z86.16 Personal history of COVID-19; R05.3 Chronic cough
CPT/HCPCS: 36415; 36592; 80053; 83735; 84439; 84443; 85007; 85025; 85027; 96365; 96367; 96372; 96375; 96411; 96413; 96417; G0463; J0185; J1100; J1642; J2469; J2506; J3489; J9045; J9271; J9305

== ENCOUNTER 2024-06-06 12:28 | Outpatient (OUT) | payer MEDICARE, SELFPAY ==
--- OUTSIDE RECORDS SUMMARY | 2024-06-06 12:54 | XMS_ITS | CCD ---
Author Organization [facility] Care Team Providers Care Ecclesiastical Worker Name Role Phone OLIVIA, DR GUTIERREZ Primary Care Unavailable OLIVIA, DR GUTIERREZ Admitting Unavailable OLIVIA, DR GUTIERREZ Attending Unavailable OLIVIA, DR GUTIERREZ Consulting Unavailable WEST, DR JOAQUIM Ashton Consulting Unavailable OLIVIA, DR GUTIERREZ Primary Care Unavailable OLIVIA, DR GUTIERREZ Admitting Unavailable OLIVIA, DR GUTIERREZ Attending Unavailable OLIVIA, DR GUTIERREZ Consulting Unavailable ZIEBER, DR CARIE Edwards Consulting Unavailable Samsa - TBH, DO Vj Attending Provider ROM MELTON Referring Unavailable OMBALLI, MOHAMED Referring Unavailable OMBALLI, MEENUAMED Attending Unavailable OMBALLI, MOHAMED Referring Unavailable Samsa - TBH, Vj Admitting Unavailable Samsa - TBH, Vj Attending Unavailable Brenda Baker MD Primary Care Provider Brenda Baker Primary Care Physician [phone] Bhupendra ROLLINS Attending Unavailable Allergies Allergy Classification Reported Allergen(s) Allergy Type Date of Onset Reaction(s) Facility (1 source) ALLERGIES NOT ON FILE; Translations: [ALLERGIES NOT ON FILE] Propensity to adverse reactions (disorder) [facility] Repository (1 source) No Known Medication Allergies; Translations: [No Known Medication Allergies] Propensity to adverse reactions (disorder) [facility] Repository Medications Current Medications Medication Drug Class(es) Dates Sig (Normalized) Sig (Original) acetaminophen 300 mg / codeine phosphate 30 mg oral tablet (1 source) Opioid Agonist Start: 05-18-2024 acetaminophen-code ine 300 mg-30 mg Tab Refill(s) 0, oral, 0 Refill(s), Take by mouth. Start Date: 05/18/24 Status: Ordered 72 hr fentaNYL 0.025 mg/hr transdermal system (1 source) Opioid Agonist Start: 05-18-2024 fentaNYL 25 mcg/hr Transderm ER Film 1 patch(es), Topical, q72hr, Refill(s) 0 Start Date: 05/18/24 Status: Ordered Multivitamin preparation (1 source) Start: 05-18-2024 take 1 tablet by mouth once daily multivitamin 1 tab(s), Oral, Daily, Refill(s) 0 Start Date: 05/18/24 Status: Ordered ondansetron 4 mg disintegrating oral tablet (1 source) Serotonin-3 Receptor Antagonist Start: 05-25-2024 take 1 tablet by mouth every eight hours as needed for nausea ondansetron 4 mg Dis Tab 4 mg = 1 tab(s), Oral, q8hr, PRN Nausea/Vomiting, Refills(s) 0 Start Date: 05/25/24 Status: Ordered Completed/Discontinued Medications Medication Drug Class(es) Dates Sig (Normalized) Sig (Original) prochlorperazine 10 mg oral tablet (1 source) Phenothiazine Start: 04-20-2024 Problems Problem Classification Problem Date Documented Date Episodic/Chronic Cancer of bronchus; lung (4 sources) Malignant neoplasm of unspecified part of unspecified bronchus or lung; Translations: [Malignant neoplasm of upper lobe, bronchus or lung] Onset: 04-06-2024 Chronic Coagulation and hemorrhagic disorders (1 source) Acquired thrombocytopenia 05-18-2024 Chronic Diseases of white blood cells (1 source) Neutropenia 05-18-2024 Chronic Lymphadenitis (2 sources) Localized enlarged lymph nodes; Translations: [Localized enlarged lymph nodes] Onset: 04-06-2024 Episodic Nonspecific chest pain (4 sources) Other chest pain; Translations: [OTHER CHEST PAIN] Onset: 06-10-2021 Episodic Other circulatory disease (1 source) Difficult venous access 05-25-2024 Episodic Other diseases of veins and lymphatics (1 source) Disorder of vein; Translations: [Other specified disorders of veins] Onset: 05-25-2024 Episodic Other nutritional; endocrine; and metabolic disorders (1 source) Overweight 05-25-2024 Episodic Other nutritional; endocrine; and metabolic disorders (1 source) Overweight in adulthood with body mass index of 25 or more but less than 30 05-25-2024 Episodic Secondary malignancies (1 source) Secondary malignant neoplasm of bone 10-24-2024 Chronic Superficial injury; contusion (4 sources) Contusion of left knee, sequela; Translations: [CONTUSION OF LEFT KNEE SEQUELA] Onset: 08-08-2021 Episodic Results Test Name Value Interpretation Reference Range Facility Ambulatory Visit Summaryon 1 Ambulatory Visit Summary Ambulatory Visit Summary ISELA DE LA ROSA :1955 Visit Date:05/25/2024 Ambulatory Visit Instructions Your Care Team Attending Physician - RIA BAILEY, Bhupendra Edwards Primary Care Physician - Olivia BAILEY, Brenda This Is Your Medications List Contact prescribing physician if questions or concerns acetaminophen-codeine (acetaminophen-codein e 300 mg-30 mg Tab) fentanyl (fentaNYL 25 mcg/hr Transderm ER Film) multivitamin ondansetron (ondansetron 4 mg Dis Tab) prochlorperazine (prochlorperazine 10 mg Tab) Procedures Performed Bronchoscopy (04/06/2024), section, section, Nerve transposition, Repair of inguinal hernia, HORACIO BSO - Total abdominal hysterectomy and bilateral salpingo-oophorectomy . Discharge Vitals Heart Rate (Peripheral) 81 Respiratory Rate 16 Blood Pressure 165/93 Height 157.4 cm Height 62 in Weight 64.8 kg Weight 142.56 lb BMI 26.16 Medications What How Much When Instructions Unchanged acetaminophen-codeine (acetaminophen-codein e 300 mg-30 mg Tab) oral, 0 Refill(s), Take by mouth. Contact prescribing physician if questions or concerns Unchanged fentanyl (fentaNYL 25 mcg/ hr Transderm ER Film) 1 Patches Topical Every 72 hours Contact prescribing physician if questions or concerns Unchanged multivitamin 1 Tablets By Mouth Every day Contact prescribing physician if questions or concerns Unchanged ondansetron (ondansetron 4 mg Dis Tab) 1 Tablets By Mouth Every 8 hours as needed for Nausea/Vomiting Contact prescribing physician if questions or concerns Unchanged prochlorperazine (prochlorperazine 10 mg Tab) 10 Unknown, Oral, 0 Refill(s) Contact prescribing physician if questions or concerns Allergies No Known Allergies No Known Medication Allergies Problems Ongoing - Any problem that you are currently receiving treatment for. Acquired thrombocytopenia Adenocarcinoma of upper lobe of right lung BMI 26.0-26.9,adult Bone neoplasm secondary Neutropenia Overweight Patient Survey You may receive a survey via text or e-mail asking about your office visit. Please share your experience with us by completing your survey. We appreciate your feedback and thank you for choosing us for your care. Bob Fernandez [facility] HPon 04-06-2024 - Attestation signed by Rom Melton MD at 04/06/2024 11:16 AM Re-explained the procedure to the patient along with the associated risk of pneumothorax, bleeding, hypoxia, and respiratory failure. Patient is agreeable and will proceed with the scheduled bronchoscopy and EBUS TBNA Rom Melton MD Interventional Pulmonary Medicine Pulmonary and Critical Care Medicine [facility] Physicians History Of Present Illness 68 years [...] will be sent to Dr. Nemo Rojas [facility] NON-MOTOR VEHICLE TECHNICIAN CYTOLOGY - CELLULAR EXAMon 04-06-2024 LAB AP ADDENDUM 1 [facility] Comment on above: Result Comment: This case ([id number]) was sent to [employer] for the [employer] 360 Tissue Next and PDL1 22C3 assays. The results read as follows: Detected Alterations and Biomarkers with Associated Treatment Options or Clinical Trials TP53: I195T RAF1: P261R Additional Biomarkers Tumor Mutational Safety [place] (TMB): 4.0 mut/Mb MSI Status: Stable PD-L1 [...] sensitivity of the TissueNext test. See [facility] report for a complete description with interpretive content and potential clinical trials. Addendum electronically signed by Linnea Palumbo MD on 2024 at 9:29 AM Performed By: #### L AB13 ####[facility] ([place])[address] [place] [address] LAB AP CASE REPORT Normal [facility] Comment on above: Result Comment: Non- gynecologic Cytology Case: [id number] Authorizing Provider: Rom Melton MD Collected: 04/06/2024 1145 Ordering Location: [facility] Main Operating Room Received: 04/06/2024 1425 Pathologist: Linnea Palumbo MD Specimen: Lymph Node Station 4R Performed By: #### L AB13 ####[facility] ([place])[address] [place] [address] LAB AP CLINICAL INFORMATION Normal [facility] Comment on above: Result Comment: Hist ory of adenocarcinoma of the right upper lobe, molecular testing requested Performed By: #### L AB13 ####[facility] ([place])[address] [place] [address] LAB AP DIAGNOSIS COMMENT There is a moderate amount of tumor cells present in the cell block for additional studies, if clinically indicated. Normal [facility] Comment on above: Performed By: #### L AB13 ####[facility] ([facility])[address] [facility] [place] [address] LAB AP GROSS DESCRIPTION [facility] Comment on above: Result Comment: 2 ai r-dried slides, 2 alcohol-fixed slides, 30 mL CytoLyt with hazy, red fluid and clots Performed By: #### L AB13 ####[facility] ([facility])[address] [facility] [place] [address] LAB AP INTRAOPERATIVE CONSULTATION [facility] Comment on above: Result Comment: Darshan Lassiter ymph Node Station 4R. Rapid on-site evaluation [...] material submitted.* Performed By: #### L AB13 ####[facility] ([facility])[address] [place] [address] LAB AP MICROSCOPIC DESCRIPTION A. Satisfactory for evaluation. Examination of the prepared smears and cell block reveals numerous tumor cells arranged in clusters and as single cells with finely vacuolated cytoplasm, high n/c ratio, and enlarged nuclei with irregular chromatin and prominent nucleoli. [facility] Comment on above: Performed By: #### L AB13 ####[facility] ([facility])[address] [place] [address] LAB AP REPORT FINAL DIAGNOSIS NARRATIVE [facility] Comment on above: Result Comment: Darshan Lassiter ymph node, station 4R, EBUS-guided fine needle aspiration: - Metastatic adenocarcinoma. Performed By: #### L AB13 ####[facility] ([facility])[address] [place] [address] NURSNOTEon 04-06-2024 NURSNOTE Discharge instructions reviewed with patient sister at bedside. All questions answered at this time Cass Lucero PRODUCTION MANAGER [facility] NURSNOTE No chest xray needed post op at this time per Dr. Lorri Lucero PRODUCTION MANAGER [facility] POCT GLUCOSE METER UNSOLICIT ED RESULTSon 04-06-2024 Glucose [Mass/Vol] 104 mg/dL Normal 70-[address] [facility] Comment on above: Order Comment: Waive d Testing in the ED is performed under the ED CLIA certificate #[id number]. Result Comment: ngro rodriguez Performed By: #### L [id number] #### [facility] ([facility]) [address] [place] [address] Prep for Procedureon 024 Prep for Procedure [id number] Isela De La Rosa 1955 F Date Provider Department Center 04/04/2024 [facility] No family history on file Normal [facility] Abstracton 04-03-2024 Abstract [id number] Estrella,Isela 1955 F Date Provider Department Center 04/03/2024 [facility] No family history on file [facility] Orders Onlyon 04-03-2024 Orders Only [id number] EstrellaIsela 1955 F Date Provider Department Center 04/03/2024 [facility] No family history on file [facility] Umer 02-15-2024 L Specimen: [id number] Received: 02/16/241241 Status: SOUT Req Num: [id number] Spec Type: Surgical Subm Dr: Vj Glass DO Tissues: A Lung - Transbroncial Biopsy (RT UPPER LOBE MASS BX) Procedures: HE/2, Gross/Micro L4, CK5 6, CK20, CK 7, NAPSIN A, TTF1, IHC First AB, IHC Add AB/5, p40 Age/ Patient Sex Location Account Attending Physician Isela De La Rosa 68/F LABE[facility] [id number] Vj Glass DO SPEC NUM: [id number] RECD: 02/16/24 STATUS: PEGGY RECharlie NUM: [id number] KIMBERLYN: 02/15/[address] [facility] [address]: Vj Glass DO ENTERED: 02/16/[address]: Jesu,Lab SPEC TYPE: Surgical DEPT: DENISSE [...] adenocarcinoma. Clinical correlation is required. -------- Specimen: [id number] Received: 02/16/24 Status: PEGGY Abreu Num: [id number] Spec Type: Surgical Subm Dr: Vj Glass DO Tissues: A Lung - Transbroncial Biopsy (RT UPPER LOBE MASS BX) Procedures: HE/2, Gross/Micro L4, CK5 6, CK20, CK 7, NAPSIN A, TTF1, IHC First AB, IHC Add AB/5, p40 -------- Patient: Isela De La Rosa [id number] (Continued) -------- Specimen: [id number] Received: 02/16/24 (Continued) Signed (signature on file) Rom Garcia MD 02/23/24 1658 -------- Specimen: [id number] Received: 02/16/24 Status: PEGGY Abreu Num: [id number] Spec Type: Surgical Subm Dr: Vj Glsas DO Tissues: A Lung - Transbroncial Biopsy (RT UPPER LOBE MASS BX) Procedures: HE/2, Gross/Micro L4, CK5 6, CK20, CK 7, NAPSIN A, TTF1, IHC First AB, IHC Add AB/5, p40 -------- Patient: Isela De La Rosa [id number] (Continued) -------- Specimen: [id number] Received: 02/16/24-1241 (Continued) Clinical Information Abnormal bronchial mucosa of the right upper lobe Gross Description Received in formalin labeled with the patient's name, date of and right upper lobe mass biopsy are 3 delicate meeks tissue fragments ranging from 0.4 x 0.1 x 0.1 cm to 0.3 x 0.1 x 0.1 cm, entirely submitted in A1. CPT Codes 67913 67810 [id number] -------- -------- Specimen: [id number] Received: 02/16/24 Status: PEGGY Abreu Num: [id number] Spec Type: Surgical Subm Dr: Vj Glass DO Tissues: A Lung - Transbroncial Biopsy (RT UPPER LOBE MASS BX) Procedures: HE/2, Gross/Micro L4, CK5 6, CK20, CK 7, NAPSIN A, TTF1, IHC First AB, IHC Add AB/5, p40 -------- Patient: Isela De La Rosa [id number] (Continued) -------- Signed (signature on file) Rom Garcia MD 02/23/241657 Normal [facility] L Specimen: [id number] Received: 02/16/24 Status: PEGGY Abreu Num: [id number] Spec Type: Cytology Subm Dr: Vj Glass DO Tissues: A BRONWA (RUL) Procedures: HE/2, Gross/Micro L4, Cyto Prepstain, PAPSTN Age/ Patient Sex Location Account Attending Physician Isela De La Rosa 68/F LAB[facility] [id number] Vj Glass DO SPEC NUM: [id number] RECD: 02/16/24 STATUS: PEGGY ABREU NUM: [id number] KIMBERLYN: 02/15/24-[address]: Vj Glass DO ENTERED: 02/16/[address]: Jesu,Nadeem SPEC TYPE: Cytology DEPT: [facility] ENTERED BY: [id number] RECV BY: [id number] ORDERED: HE/2, Gross/Micro L4, Cyto Prepstain, PAPSTN ORDERED: HE/2, Gross/Micro L4, Cyto Prepstain, PAPSTN Pathological Diagnosis Right lung, bronchial washings: Negative for malignant cells. Clinical Information Right lung mass Gross Description Received fresh is 8 ml red cloudy unfixed fluid for cytology said to have been obtained as Right upper lobe lavage. ThinPrep and cell block preparations are prepared for microscopic examination.( MD/va) CPT Codes 48825 -------- -------- Specimen: [id number] Received: 02/16/24 Status: PEGGY Abreu Num: [id number] Spec Type: Cytology Subm Dr: Vj Glass DO Tissues: A BRONWA (RU) Procedures: HE/2, Gross/Micro L4, Cyto Prepstain, PAPSTN -------- Patient: Isela De La Rosa [id number] (Continued) -------- Signed (signature on file) Rom Garcia MD 02/23/24 1536 Normal [facility] NM STRESS/REST MULTIon 06-10 NM STRESS/REST MULTI Patient: ISELA DE LA ROSA Exam Date: 06/10/2021 : 1955 Gender:F Ordering : DR BRENDA BAKER . Admission #: [id number] Family : Order #: [id number] CLICK HERE TO VIEW EXAM RADIOLOGY REPORT [...] Maravilla MD on 06/10/2021 at 12:59 Normal [facility] Vital Signs Date Time Vital Sign Value Performing Clinician Woody valencia 05-25-2024 10:41-0400 Blood Pressure Location Bhupendra NILL [facility] 05-25-2024 10:41-0400 Diastolic blood pressure 93 mm[Hg] Bhupendra NILL [facility] 05-25-2024 10:41-0400 Heart rate 81 /min Bhupendra NILL [facility] 05-25-2024 10:41-0400 Respiratory rate 16 /min Bhupendra NILL [facility] 05-25-2024 10:41-0400 Systolic blood pressure 165 mm[Hg] Bhupendra NILL [facility] Encounters Encounter Date Encounter Type Care Provider Facility Start: 05-25-2024 End: 05-25-2024 ambulatory Bhupendra R NILL Facility:[facility] Start: 05-25-2024 End: 05-25-2024 Patient encounter procedure Bhupendra R NILL [facility] Start: 05-16-2024 ambulatory Bhupendra NILL Facility:[facility] Start: 04-06-2024 End: 04-06-[address] [facility] Start: 04-03-2024 End: 04-03-[address] [facility] Start: 03-15-2024 End: 03-15-2024 Chart abstracting Andreas Pascual MD Work Phone: Hematology/Oncology Start: 02-15-2024 End: 02-15-2024 ambulatory Vj [facility] Work Phone: Start: 02-15-2024 End: 02-15-2024 Departed Referred DO Vj [facility] Work Phone: [facility] Path [facility] Start: 08-08-2021 End: 08-09-[address] BRENDA BAKER Facility:[facility] Start: 06-10-2021 End: 06-11-[address] BRENDA BAKER Facility:[facility] Procedures Date Procedure Procedure Detail Performing Clinician Start: 04-06-2024 Bronchoscopy Bhupendra DE [place] [facility] section Bhupendra Lassiter section Bhupendra Lassiter Nerve transposition Bhupendra ROLLINS Repair of inguinal hernia Jyothi ROLLINS Total abdominal hysterectomy with bilateral salpingo-oophorectomy Bhupendra ROLLINS Plan of Treatment Date Care Activity Detail Author Start: 03-26-2024 Influenza vaccination Influenza Vacc ine (#1) [facility] Start: 07-26-2023 Advance Directive Discussion Advance Directive Discussion [facility] Start: 03-26-2023 Covid-19 Vaccine ( season) Covid-19 Vaccine ( season) [facility] Start: 2021 Pneumococcal Vaccine : 65+ (1 of 1 - PCV) Pneumococcal Vaccine: 65+ (1 of 1 - PCV) [facility] Start: 2021 Screening for osteoporosis Bone Density Screening [facility] Start: 2016 RSV Vaccine (1 - 1-d ose 60+ series) RSV Vaccine (1 - 1-dose 60+ series) [facility] Start: 2006 Shingrix Vaccine (1 of 2) Shingrix V accine (1 of 2) [facility] Start: 2001 Diabetes Screening Diabetes Screenin g [facility] Start: 2001 Lipid panel Lipid Screening [facility] Start: 2001 Screening for malign ant neoplasm of colon [facility] Start: 1996 Screening for malign ant neoplasm of breast Mammogram Screening [facility] Start: 1975 Urine microalbumin profile DTaP,Tdap,Td Vaccine (1 - Tdap) [facility] Start: 1974 Anxiety Screening Anxiety Screening [facility] Start: 1974 Depression Screening Depression Scre ening [facility] Start: 1974 Hepatitis C screening Hepatitis C Sc reening [facility] Immunizations Immunization Date Immunization Notes Care Provider Fa cility 09-18-2020 SARS-CoV-2 (COVID-19 ) mRNA BNT-162b2 vax [employer] [facility] 08-28-2020 SARS-CoV-2 (COVID-19 ) mRNA BNT-162b2 vax Bhupendra NILL [facility] Payers Date Payer Category Payer Self-pay 2022 Medicare HUMANA MEDICARE HU[employer]NA GOLD PLUS [id number] 2022-Present [phone] [address] [address] [place] [address] HMO [id number] 2022 Medicare [id number] 1958 Unknown [id number] 1955 Unknown [id number] 1955 Unknown [id number] 1955 Unknown [id number] Private Health Insurance [employer] Insurance [facility] [id number] Social History Date Type Detail Facility Tobacco smoking status OKIS Unknown if ever smoked [facility] Work Phone: Start: 1955 Sex Assigned At Female F [facility] Tobacco smoking status NHIS Tobacco smoking consumption unknown [facility] Start: 1955 Sex assigned at Not on file [facility] Gender identity Not on file [facility] Start: 05-25-2024 Tobacco smoking status Never smoked tobacco (finding) [facility] [place] Tobacco smoking status Never [facility] Functional Status Date Assessment Result Facility 05-25-2024 Functional Status N/A [facility] [place] Clinical Notes 08-08-2021 to 05-25-2024 Note Date & Type Note Facility 05-25-2024 Note General Surgery Offi ce/Clinic Note Chief Complaint consultation for port HPI Staff 69 year old female presents on consultation from Dr. Chester for port placement. Patient with adenocarcinoma of right lung. History of Present Illness 69 yo female with h/o adenocarcinoma of right upper lobe of lung, referred for [id number] insertion; patient has already begun chemotherapy via left PICC line; had thrombocytopenia after first treatment, improved now; no tobacco use; no asa or NSAID use. no h/o previous port or central line; no h/o clavicular fracture; no XRT to chest or neck. Review of Systems PHQ Score Initial Depression Screen Score: 0 SCORE ROS - Provider Constitutional: no fever, no sweats, no weight loss. Eyes: no glasses, no blurred vision, no visual loss. ENMT: no dentures, no hoarseness, no swallowing difficulties, no hearing loss, no ear infection(s), no nose bleeds. Cardiovascular: normal blood pressure, no chest pain, regular heartbeat, no heart murmur. Respiratory: no shortness of breath, no cough, no asthma, no wheezing. Gastrointestinal: no nausea, no vomiting, no diarrhea, no constipation, no blood in stool, no change in bowel habits, no abdominal pain, no hepatitis. Genitourinary: no kidney stones, no urine infection, no dysuria. Musculoskeletal: no pain, no weakness. Skin: no changing moles, no rash, no skin lumps. Neurologic: no seizures, no epilepsy, no headache. Psychiatric: no emotional or psychiatric problem. Heme/Lymph: no bleeding problems, no anemia, no blood clots, no transfusions. Allergy/Immunologic: no swollen lymph nodes/glands, no IV drug abuse. Other: Additional ROS info: Except as noted in the above Review of Systems and in the History of Present Illness, all other systems have been reviewed and are negative or noncontributory. Physical Exam Vitals & Measurements HR: 81(Peripheral) RR: 16 BP: 165/93 HT: 62 in HT: 157.4 cm WT: 64.8 kg WT: 142.56 lb BMI: 26.16 HEENT: normal conjunctiva, sclera clear, no scleral icterus, EOM intact, PERRLA, oral mucosa moist without lesions. Neck: trachea midline, no mass, symmetric, no thyromegaly or nodules, no adenopathy Respiratory: lungs CTA, respirations non labored.no calvicular deformities. Cardiovascular: regular rate and rhythm, no murmur, no pedal edema or varicosities. Gastrointestinal: soft, non distended, no tenderness, no masses, no palpable hernias, diastasis recti no, no hepatosplenomegaly; normal bs Lymphatic: no cervical adenopathy, no supraclavicular adenopathy. Musculoskeletal: normal gait, digits and nails without infection, nodes, cyanosis, clubbing. Skin: no rashes, no lesions, no ulcers, no subcutaneous nodules, induration. Psychiatric/Neuro: oriented to time, place, person, judgement normal, affect appropriate for age, insight intact, no focal deficits. Tests: labs reviewed, x-rays reviewed, review of old records completed , Discussed surgical options, risks, and possible complications with patient. Assessment/Plan 1. Adenocarcinoma of upper lobe of right lung (C34.11: Malignant neoplasm of upper lobe, right bronchus or lung) plan [id number] insertion under anesthesia at [facility], informed consent obtained. Ancef 2 gms IV prior to OR SCDs 2. Poor venous access (I87.8: Other specified disorders of veins) see # 1 Follow-up No qualifying data available Problem List/Past Medical History Ongoing Acquired thrombocytopenia Adenocarcinoma of upper lobe of right lung BMI 26.0-26.9,adult Bone neoplasm secondary Neutropenia Overweight Poor venous access Historical No qualifying data Procedure/Surgical History Bronchoscopy (04/06/2024), section, section, Nerve transposition, Repair of inguinal hernia, HORACIO BSO - Total abdominal hysterectomy and bilateral salpingo-oophorectomy. Medications acetaminophen-codeine 300 mg-30 mg Tab fentaNYL 25 mcg/hr Transderm ER Film, 1 patch(es), Topical, q72hr multivitamin, 1 tab(s), Oral, Daily ondansetron 4 mg Dis Tab, 4 mg= 1 tab(s), Oral, q8hr, PRN prochlorperazine 10 mg Tab Allergies No Known Allergies No Known Medication Allergies Social History Alcohol Never., 05/24/2024 Substance Abuse Never., 05/24/2024 Tobacco Never (less than 100 in lifetime) Tobacco Use:. Never Smokeless Tobacco Use:., 05/25/2024 Family History COPD: Father. Heart disease: Mother and Father. Immunizations Vaccine Date Status SARS-CoV-2 (COVID-19) mRNA BNT-162b2 vax 09/18/2020 Recorded SARS-CoV-2 (COVID-19) mRNA BNT-162b2 vax 08/28/2020 Recorded [facility] Comment on above: Result Comment: Elec tronically Signed By: RIA BAILEY, Bhupendra Edwards\.br\Date and Time Signed: 05/25/24 16:13 EDT 04-06-2024 Note Patient: Isela edwards Procedure Summary Date: 04/06/24 Room / Location: [facility] Main Operating Room Anesthesia Start: 1126 [...] no known notable events for this encounter. [facility] 04-06-2024 Note Airway Date/Time: 04/06/2024 11:32 AM Urgency: elective Airway not difficult General Information and Staff Patient location during procedure: OR Anesthesiologist: Kevon Lamar MD Resident/AIRPORT RAMP AGENT/CAA: Ananda Villatoro MD Performed: resident/AIRPORT RAMP AGENT/CAA Indications and Patient Condition Indications for airway [...] 22 Number of attempts at approach: 1 [facility] 04-06-2024 Note Patient: Isela edwards Procedure Summary Date: 04/06/24 Room / Location: [facility] Main Operating Room Anesthesia Start: 1126 [...] and follow verbal commands throughout transport process [facility] 04-06-2024 Note Patient: Isela edwards Procedure Information Date/Time: 04/06/24 1130 Scheduled providers: Rom Melton MD Procedure: BRONCHOSCOPY Location: [facility] Main Operating Room Relevant Problems No [...] 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 Additional Equipment Requests [facility] 04-03-[address] Chester . Patient needs more tissue for molecular testing. EBUS order placed [facility] 08-08-2021 Note PROCEDURE: XR KNEE L T [...] authenticated by: CARIE VELÁZQUEZ Date: 2021-08-08 14:54 [facility] Evaluation + Plan note No data available for this section [facility] [place] Evaluation note No assessment inform ation available [facility] Work Phone: Hospital Discharge instructions No data available for this section [facility] [place] Progress note No data available for this section [facility] [place] Summary Purpose Family History No Family History Records FoundNo Family History Records FoundNo Family History Records Found No data available for this section No Family History Records Found Advance Directives No Advanced Directives Records FoundNo Advanced Directives Records FoundNo Advanced Directives Records FoundNo Advanced Directives Records Found Additional Source Comments INFORMATION SOURCE (unrecogn ized section and content) DATE CREATED AUTHOR 08/13/2021 [facility] DATE CREATED AUTHOR AUTHOR'S ORGANIZ ATION 2024 [facility] DATE CREATED AUTHOR AUTHOR'S ORGANIZ ATION 04/30/2024 [facility] DATE CREATED AUTHOR AUTHOR'S ORGANIZ ATION 05/26/2024 Jim Lau [facility] Care Teams (unrecognized sec tion and content) Team Status: Inactive Member Role Status Dates Vj CROWLEY DO Attending Provider Active Start: February 15, 2024 End: February 15, 2024 Ecclesiastical Worker Relationship Specialty Start Date End Date Brenda Baker MD [address] [place] [address] PCP - General Family Medicine 03/02/24 Goals (unrecognized section and content) Goals may be documented in a n alternate section No data available for this section Source Comments (unrecognize d section and content) In the event this informatio n is protected by the Federal Confidentiality of Alcohol and Drug Abuse Patient Records regulations: The Federal rules restrict any use of the information to criminally investigate or prosecute any alcohol or drug abuse patient.[facility] FOR RECORDS PERTAINING TO PATIENTS WHO ARE [...] BE BASED ON THE PRIMARY CLINICAL RECORDS. [facility]. provides no warranty or guarantee of the accuracy or completeness of information in this document.
== END 2024-06-06 12:29 | disposition home or self-care (01) ==
LOC: PST 12:29
PROVIDERS: PCP Family Medicine; Visit Provider Surgery
DX: Z01.818 Encounter for other preprocedural examination (principal); C34.10 Malignant neoplasm of upper lobe, unspecified bronchus or lung

== ENCOUNTER 2024-06-06 12:38 | Outpatient (OUT) | payer MEDICARE, SELFPAY ==
--- OUTSIDE RECORDS SUMMARY | 2024-06-06 13:00 | XMS_ITS | CCD ---
Author Organization [facility] Care Team Providers Care Academic Interventionist Name Role Phone OLIVIA, DR GUTIERREZ Primary Care Unavailable OLIVIA, DR GUTIERREZ Admitting Unavailable OLIVIA, DR GUTIERREZ Attending Unavailable LOIVIA, DR GUTIERREZ Consulting Unavailable WEST, DR JOAQUIM [...] Care Provider Brenda Baker Primary Care Physician Bhupendra ROLLINS Attending Unavailable Allergies Allergy Classification Reported Allergen(s) Allergy Type Date of Onset Reaction(s) Facility (1 source) ALLERGIES NOT ON FILE; Translations: [ALLERGIES NOT ON FILE] Propensity to adverse reactions (disorder) [facility] Repository (1 source) No Known Medication Allergies; Translations: [No Known Medication Allergies] Propensity to adverse reactions (disorder) [facility] Repository Medications Current Medications Medication Drug [...] choosing us for your care. Bob Fernandez [facility] HPon 04-06-2024 - Attestation signed by Rom Melton MD at 04/06/2024 11:16 AM Re-explained the procedure to the patient along with the associated risk of pneumothorax, bleeding, hypoxia, and respiratory failure. Patient is agreeable and will proceed with the scheduled bronchoscopy and EBUS TBNA Rom Melton MD Interventional Pulmonary Medicine Pulmonary and Critical Care Medicine [facility] History Of Present Illness 68 years [...] will be sent to Dr. Nemo Rojas [facility] NON-OVEN DUMPER CYTOLOGY - CELLULAR EXAMon 04-06-2024 LAB AP ADDENDUM 1 [facility] Comment on above: Result Comment: This case ([id number]) was sent to [facility] for the [employer] 360 Tissue Next and PDL1 22C3 assays. The results read as follows: Detected Alterations and Biomarkers with Associated Treatment Options or Clinical Trials TP53: I195T RAF1: P261R Additional Biomarkers Tumor Mutational [place] (TMB): 4.0 mut/Mb MSI Status: Stable PD-L1 [...] sensitivity of the TissueNext test. See [facility] for a complete description with interpretive content and potential clinical trials. Addendum electronically signed by Linnea Palumbo MD on 2024 at 9:29 AM Performed By: #### L AB13 ####[facility] ([employer])[address] [place] [address] LAB AP CASE REPORT Normal [facility] Comment on above: Result Comment: Non- gynecologic Cytology Case: [id number] Authorizing Provider: Rom Melton MD Collected: 04/06/2024 1145 Ordering Location: [facility] Main Operating Room Received: 04/06/2024 1425 Pathologist: Linnea Palumbo MD Specimen: Lymph Node Station 4R Performed By: #### L AB13 ####[facility] ([employer])[address] [place] [address] LAB AP CLINICAL INFORMATION Normal [facility] Comment on above: Result Comment: Hist ory of adenocarcinoma of the right upper lobe, molecular testing requested Performed By: #### L AB13 ####[facility] ([employer])[address] [place] [address] LAB AP DIAGNOSIS COMMENT There is a moderate amount of tumor cells present in the cell block for additional studies, if clinically indicated. Normal [facility] Comment on above: Performed By: #### L AB13 ####[facility] ([facility])[address] [place] [address] LAB AP GROSS DESCRIPTION [facility] Comment on above: Result Comment: 2 ai r-dried slides, 2 alcohol-fixed slides, 30 mL CytoLyt with hazy, red fluid and clots Performed By: #### L AB13 ####[facility] ([facility])[address] [place] [address] LAB AP INTRAOPERATIVE CONSULTATION [facility] Comment on above: Result Comment: Darshan [...] material submitted.* Performed By: #### L AB13 ####[facility] ([facility])[address] [place] [address] LAB AP MICROSCOPIC DESCRIPTION A. Satisfactory for evaluation. Examination of the prepared smears and cell block reveals numerous tumor cells arranged in clusters and as single cells with finely vacuolated cytoplasm, high n/c ratio, and enlarged nuclei with irregular chromatin and prominent nucleoli. [facility] Comment on above: Performed By: #### L AB13 ####[facility] ([facility])[address] [place] [address] LAB AP REPORT FINAL DIAGNOSIS NARRATIVE [facility] Comment on above: Result Comment: Darshan Lassiter ymph node, station 4R, EBUS-guided fine needle aspiration: - Metastatic adenocarcinoma. Performed By: #### L AB13 ####[facility] ([facility])[address] [place] [address] NURSNOTEon 04-06-2024 NURSNOTE Discharge instructions reviewed with patient sister at bedside. All questions answered at this time Cass Lucero PRODUCTION COORDINATOR [facility] NURSNOTE No chest xray needed post op at this time per Dr. Lorri Lucero PRODUCTION COORDINATOR [facility] POCT GLUCOSE METER UNSOLICIT ED RESULTSon 04-06-2024 Glucose [Mass/Vol] 104 mg/dL Normal 70-105 [facility] Comment on above: Order Comment: Waive d Testing in the ED is performed under the ED CLIA certificate #[id number]. Result Comment: ngro rodriguez Performed By: #### L [id number] #### [facility] ([facility]) [address] [place] [address] Prep for Procedureon 024 Prep for Procedure [id number] Isela De La Rosa 1955 F Date Provider Department Center 04/04/2024 [facility] [place] [facility] [facility] [place] No family history on file Normal [facility] Abstracton 04-03-2024 Abstract [id number] Estrella,Isela 1955 F Date Provider Department Center 04/03/2024 [facility] [place] [facility] [facility] [place] No family history on file [facility] Orders Onlyon 04-03-2024 Orders Only [id number] EstrellaIsela 1955 F Date Provider Department Center 04/03/2024 [facility] [place] [facility] [facility] [place] No family history on file [facility] Umer 02-15-2024 L Specimen: [id number] Received: 02/16/241241 Status: SOUT Req Num: [id number] Spec Type: Surgical Subm Dr: Vj Glass DO Tissues: A Lung - Transbroncial Biopsy (RT UPPER LOBE MASS BX) Procedures: HE/2, Gross/Micro L4, CK5 6, CK20, CK 7, NAPSIN A, TTF1, IHC First AB, IHC Add AB/5, p40 Age/ Patient Sex Location Account Attending Physician Isela De La Rosa 68/F LABELL [id number] Vj Glass DO SPEC NUM: [id number] RECD: 02/16/24 STATUS: PEGGY RECharlie NUM: [id number] KIMBERLYN: 02/15/[address] [facility] DR: Vj Glass DO ENTERED: 02/16/24 OT [...] adenocarcinoma. Clinical correlation is required. -------- Specimen: [id number] Received: 02/16/24 Status: PEGGY Abreu Num: [id number] Spec Type: Surgical Subm Dr: Vj Glass DO Tissues: A Lung - Transbroncial Biopsy (RT UPPER LOBE MASS BX) Procedures: HE/2, Gross/Micro L4, CK5 6, CK20, CK 7, NAPSIN A, TTF1, IHC First AB, IHC Add AB/5, p40 -------- Patient: Isela De La Rosa [id number] (Continued) -------- Specimen: [id number] Received: 02/16/24 (Continued) Signed (signature on file) Rom Garcia MD 02/23/24 1658 -------- Specimen: [id number] Received: 02/16/24 Status: PEGGY Abreu Num: [id number] Spec Type: Surgical Subm Dr: Vj Glass DO Tissues: A Lung - Transbroncial Biopsy (RT UPPER LOBE MASS BX) Procedures: HE/2, Gross/Micro L4, CK5 6, CK20, CK 7, NAPSIN A, TTF1, IHC First AB, IHC Add AB/5, p40 -------- Patient: Isela De La Rosa [id number] (Continued) -------- Specimen: [id number] Received: 02/16/24-1241 (Continued) Clinical Information Abnormal bronchial mucosa of the right upper lobe Gross Description Received in formalin labeled with the patient's name, date of and right upper lobe mass biopsy are 3 delicate meeks tissue fragments ranging from 0.4 x 0.1 x 0.1 cm to 0.3 x 0.1 x 0.1 cm, entirely submitted in A1. CPT Codes 41699 [id number] [id number] -------- -------- Specimen: [id number] Received: 02/16/24 Status: PEGGY Abreu Num: [id number] Spec Type: Surgical Subm Dr: Vj Glass DO Tissues: A Lung - Transbroncial Biopsy (RT UPPER LOBE MASS BX) Procedures: HE/2, Gross/Micro L4, CK5 6, CK20, CK 7, NAPSIN A, TTF1, IHC First AB, IHC Add AB/5, p40 -------- Patient: Isela De La Rosa [id number] (Continued) -------- Signed (signature on file) Rom Garcia MD 02/23/241657 Normal [facility] L Specimen: [id number] Received: 02/16/24 Status: PEGGY Abreu Num: [id number] Spec Type: Cytology Subm Dr: Vj Glass DO Tissues: A BRONWA (RUL) Procedures: HE/2, Gross/Micro L4, Cyto Prepstain, PAPSTN Age/ Patient Sex Location Account Attending Physician Isela De La Rosa 68/F LABELL [id number] Vj Glass DO SPEC NUM: [id number] RECD: 02/16/24 STATUS: PEGGY ABREU NUM: [id number] KIMBERLYN: 02/15/24-[address]: Vj Glass DO ENTERED: 02/16/[address]: Jesu,Nadeem SPEC TYPE: Cytology DEPT: [facility] ENTERED BY: [id number] RECV BY: [id number] ORDERED: HE/2, Gross/Micro L4, Cyto Prepstain, PAPSTN ORDERED: HE/2, Gross/Micro L4, Cyto Prepstain, PAPSTN Pathological Diagnosis Right lung, bronchial washings: Negative for malignant cells. Clinical Information Right lung mass Gross Description Received fresh is 8 ml red cloudy unfixed fluid for cytology said to have been obtained as Right upper lobe lavage. ThinPrep and cell block preparations are prepared for microscopic examination.( IL/ky) CPT Codes 45264 -------- -------- Specimen: [id number] Received: 02/16/24 Status: PEGGY Abreu Num: [id number] Spec Type: Cytology Subm Dr: Vj Glass DO Tissues: A BRONWA (RU) Procedures: HE/2, Gross/Micro L4, Cyto Prepstain, PAPSTN -------- Patient: Isela De La Rosa [id number] (Continued) -------- Signed (signature on file) Rom Garcia MD 02/23/24 1536 Normal [facility] NM STRESS/REST MULTIon 06-10 NM STRESS/REST MULTI Patient: ISELA DE LA ROSA Exam Date: 06/10/2021 : 1955 Gender:F Ordering : DR BRENDA BAKER . Admission #: [id number] Family : Order #: [id number] CLICK HERE TO VIEW EXAM RADIOLOGY REPORT [...] Maravilla MD on 06/10/2021 at 12:59 Normal [facility] Vital Signs Date Time Vital Sign Value Performing Clinician Woody valencia 05-25-2024 10:41-0400 Blood Pressure Location Bhupendra NILL [facility] 05-25-2024 10:41-0400 Diastolic blood pressure 93 mm[Hg] Bhupendra NILL [facility] 05-25-2024 10:41-0400 Heart rate 81 /min Bhupendra NILL [facility] 05-25-2024 10:41-0400 Respiratory rate 16 /min Bhupendra NILL [facility] 05-25-2024 10:41-0400 Systolic blood pressure 165 mm[Hg] Bhupendra NILL [facility] Encounters Encounter Date Encounter Type Care Provider Facility Start: 05-25-2024 End: 05-25-2024 ambulatory Bhupendra R NILL Facility:[facility] Start: 05-25-2024 End: 05-25-2024 Patient encounter procedure Bhupendra R NILL [facility] Start: 05-16-2024 ambulatory Bhupendra NILL Facility:[facility] Start: 04-06-2024 End: 04-06-2024 ambulatory [facility] Start: 04-03-2024 End: 04-03-2024 ambulatory [facility] Start: 03-15-2024 End: 03-15-2024 Chart abstracting Andreas Pascual MD Work Phone: Hematology/Oncology Start: 02-15-2024 End: 02-15-2024 ambulatory Vj [facility] Work Phone: Start: 02-15-2024 End: 02-15-2024 Departed Referred DO Vj [facility] Work Phone: [facility] Path [facility] Start: 08-08-2021 [...] 03-26-2024 Influenza vaccination Influenza Vacc ine (#1) [facility] Start: 07-26-2023 Advance Directive Discussion Advance Directive Discussion [facility] Start: 03-26-2023 Covid-19 Vaccine ( season) Covid-19 Vaccine ( season) [facility] Start: 2021 Pneumococcal Vaccine : 65+ (1 of 1 - PCV) Pneumococcal Vaccine: 65+ (1 of 1 - PCV) [facility] Start: 2021 Screening for osteoporosis Bone Density Screening [facility] Start: 2016 RSV Vaccine (1 - 1-d ose 60+ series) RSV Vaccine (1 - 1-dose 60+ series) [facility] Start: 2006 Shingrix Vaccine (1 of 2) Shingrix V accine (1 of 2) [facility] Start: 2001 Diabetes Screening Diabetes Screenin g [facility] Start: 2001 Lipid panel Lipid Screening [facility] Start: 2001 Screening for malign ant neoplasm of colon [facility] Start: 1996 Screening for malign ant neoplasm of breast Mammogram Screening [facility] Start: 1975 Urine microalbumin profile DTaP,Tdap,Td Vaccine (1 - Tdap) [facility] Start: 1974 Anxiety Screening Anxiety Screening [facility] Start: 1974 Depression Screening Depression Scre ening [facility] Start: 1974 Hepatitis C screening Hepatitis C Sc reening [facility] Immunizations Immunization Date Immunization Notes Care Provider Fa cility 09-18-2020 SARS-CoV-2 (COVID-19 ) mRNA BNT-162b2 vax [employer] [facility] 08-28-2020 SARS-CoV-2 (COVID-19 ) mRNA BNT-162b2 vax Bhupendra NILL [facility] Payers Date Payer Category Payer Self-pay 2022 Medicare HUMANA MEDICARE HUMANA GOLD PLUS [id number] 2022-Present [phone] [address] [address] [place] [address] HMO [id number] 2022 Medicare [id number] 1958 Unknown [id number] 1955 Unknown [id number] 1955 Unknown [id number] 1955 Unknown [id number] Private Health Insurance [employer] Insurance [facility] [id number] Social History Date Type Detail Facility Tobacco smoking status KYIS Unknown if ever smoked [facility] Work Phone: Start: 1955 Sex Assigned At Female F [facility] Tobacco smoking status NHIS Tobacco smoking consumption unknown [facility] Start: 1955 Sex assigned at [facility] on [facility] Gender identity Not on file [facility] Start: 05-25-2024 Tobacco smoking status Never smoked tobacco (finding) [facility] [place] Tobacco smoking status Never [facility] Functional Status Date Assessment Result Facility 05-25-2024 Functional Status N/A [facility] [place] Clinical Notes 08-08-2021 to 05-25-2024 Note Date & Type Note Facility 05-25-2024 Note General Surgery Offi ce/Clinic Note Chief Complaint consultation for port HPI Staff 69 year old female presents on consultation from Dr. Chester for port placement. Patient with adenocarcinoma of right lung. History of Present Illness 69 yo female with h/o adenocarcinoma of right upper lobe of lung, referred for bbcwes-o-uuxl insertion; patient has already begun chemotherapy via [...] upper lobe, right bronchus or lung) plan iaomrr-m-csrq insertion under anesthesia at [facility], informed consent obtained. Ancef 2 gms IV [...] SARS-CoV-2 (COVID-19) mRNA BNT-162b2 vax 08/28/2020 Recorded [facility] Comment on above: Result Comment: Elec tronically Signed By: RIA BAILEY, Bhupendra Edwards\.br\Date and Time Signed: 05/25/24 16:13 EDT 04-06-2024 Note Patient: Isela edwards Procedure Summary Date: 04/06/24 Room / Location: [facility] Main Operating Room Anesthesia [...] no known notable events for this encounter. [facility] 04-06-2024 Note Airway Date/Time: 04/06/2024 11:32 AM Urgency: elective Airway not difficult General Information and Staff Patient location during procedure: OR Anesthesiologist: Kevon Lamar MD Resident/QUILT STUFFER/CAA: Ananda Villatoro MD Performed: resident/QUILT STUFFER/CAA Indications and Patient Condition Indications for airway [...] 22 Number of attempts at approach: 1 [facility] 04-06-2024 Note Patient: Isela edwards Procedure Summary Date: 04/06/24 Room / Location: [facility] Main Operating Room Anesthesia [...] and follow verbal commands throughout transport process [facility] 04-06-2024 Note Patient: Isela edwards Procedure Information Date/Time: 04/06/24 1130 Scheduled providers: Rom Melton MD Procedure: BRONCHOSCOPY Location: [facility] Main Operating Room Relevant [...] 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 Additional Equipment Requests [facility] 04-03-[address] Chester . Patient needs more tissue for molecular testing. EBUS order placed [facility] 08-08-2021 Note PROCEDURE: XR KNEE L T 4V or > HISTORY: Contusion of left knee ; anterior knee and borgse pain since falling 3 days ago COMPARISON: [...] authenticated by: CARIE VELÁZQUEZ Date: 2021-08-08 14:54 [facility] Evaluation + Plan note No data available for this section [facility] [place] Evaluation note No assessment inform ation available [facility] Work Phone: Hospital Discharge instructions No data available for this section [facility] [place] Progress note No data available for this section [facility] [place] Summary Purpose Family History No Family History [...] DATE CREATED AUTHOR AUTHOR'S ORGANIZ ATION 2024 [facility] DATE CREATED AUTHOR AUTHOR'S ORGANIZ ATION 04/30/2024 [facility] DATE CREATED AUTHOR AUTHOR'S ORGANIZ ATION 05/26/2024 Jim Lau [facility] Care Teams (unrecognized sec tion and content) Team Status: Inactive Member Role Status Dates Vj CROWLEY DO Attending Provider Active Start: February 15, 2024 End: February 15, 2024 Academic Interventionist Relationship Specialty Start Date End Date Brenda Baker MD [address] [facility] [place] [address] PCP - General Family Medicine 03/02/24 Goals [...] or prosecute any alcohol or drug abuse patient.[facility] FOR RECORDS PERTAINING TO PATIENTS WHO [...] BE BASED ON THE PRIMARY CLINICAL RECORDS. [facility]. provides no warranty or guarantee of the accuracy or completeness of information in this document.
[2024-06-06 13:31] LABS: Hematocrit 31.3 % (36.0-48.0); Hemoglobin 10.5 g/dL (12.0-16.0); Mean Corpuscular HGB Conc 33.5 g/dL (29.9-35.2); Mean Corpuscular Hemoglobin 29.4 pg (26.7-34.0); Mean Corpuscular Volume 87.7 fL (81.0-99.0); Platelet Count 47 10^3/uL (150-450); Red Blood Count 3.57 10^6/uL (4.20-5.40); Red Cell Distribution Width 14.4 % (11.0-15.0); White Blood Count 8.3 10^3/uL (4.0-11.0)
[2024-06-06 13:45] LABS: Dohle Bodies 1+; Lymphocytes Absolute Manual 0.83 10^3/uL (1.20-3.80); Monocytes Absolute Manual 0.41 10^3/uL (0.30-0.80); Segmented Neut Absolute Manual 7.05 10^3/uL (1.4-6.5)
[2024-06-06 14:11] LABS: Alanine Aminotransferase 51 U/L (14-59); Albumin Globulin Ratio 0.8; Albumin Level 3.3 g/dL (3.4-5.0); Alkaline Phosphatase 189 U/L (46-116); Anion Gap 16.3; Aspartate Amino Transferase 24 U/L (15-37); BUN Creatinine Ratio 12.7; Bilirubin Total 0.5 mg/dL (0.2-1.0); Calcium 8.4 mg/dL (8.5-10.1); Carbon Dioxide 26.9 mmol/L (21.0-32.0); Chloride 98 mmol/L (98-107); Estimated GFR (African America 55 (>=60 mL/min/1.73m^2); Estimated GFR (Non-African Ame 46 (>=60 mL/min/1.73m^2); Globulin 4.4 g/dL; Glucose 125 mg/dL (74-106); Potassium 3.2 mmol/L (3.5-5.1); Sodium 138 mmol/L (136-145); Total Protein 7.7 g/dL (6.4-8.2)
== END 2024-06-06 12:39 | disposition home or self-care (01) ==
LOC: LAB 12:41
PROVIDERS: PCP Family Medicine; Visit Provider Internal Medicine Hematology & Oncology
DX: C34.11 Malignant neoplasm of upper lobe, right bronchus or lung (principal); R11.2 Nausea with vomiting, unspecified; C77.1 Secondary and unspecified malignant neoplasm of intrathoracic lymph nodes; C78.7 Secondary malignant neoplasm of liver and intrahepatic bile duct; C79.51 Secondary malignant neoplasm of bone; D64.9 Anemia, unspecified; D69.6 Thrombocytopenia, unspecified; D70.1 Agranulocytosis secondary to cancer chemotherapy; Z79.899 Other long term (current) drug therapy
CPT/HCPCS: 80053; 85007; 85027

== ENCOUNTER 2024-06-09 09:06 | Outpatient (OUT) | payer MEDICARE, SELFPAY ==
--- NOTE | 2024-06-09 09:13 | XR_ITS ---
The [address] [address] Patient Name: JASON DE LA ROSA MRN: [id number] date: 1955 Sex: F Assigned Patient Location: LAB Current Patient Location: Accession/Order Number: [id number] Exam Date: 06/09/2024 09:18 Report Date: 06/10/2024 09:07 At the request of: MIYA ALAN Procedure: XR chest 2V EXAMINATION: XR chest 2V HISTORY: Malignant Neoplasm Of Upper Lobe Right Lung COMPARISON: XR chest 04/20/2024 FINDINGS: LUNGS: Persistent opacity within right upper lobe. Lungs are otherwise clear. VASCULATURE: No increased pulmonary vasculature. PLEURA: No pneumothorax, effusion, or pleural thickening. CARDIAC: No cardiomegaly or cardiac silhouette abnormality. MEDIASTINUM: No visible mass or adenopathy. BONES: No fracture or visible bone lesion. OTHER: Left PICC line with tip in superior vena cava approaching the cavoatrial junction. XR/XR chest 2V IMPRESSION: 1. No acute cardiopulmonary process. 2. Grossly stable right upper lung mass. 3. Stable left PICC line. Electronically authenticated by: CARIE VELÁZQUEZ Date: 06/10/2024 09:07
--- OUTSIDE RECORDS SUMMARY | 2024-06-09 09:17 | XMS_ITS | CCD ---
Author Organization [facility] Care Team Providers Care Packaging Sales Representative Name Role Phone OLIVIA, DR GUTIERREZ Primary [...] Samsa - TBH, DO Vj Attending Provider MEENU MELTONAMED Referring Unavailable OMBALLI, MOHAMED Referring Unavailable OMBALLI, MEENUAMED Attending Unavailable OMBALLI, MOHAMED Referring Unavailable Samsa - TBH, Vj Admitting Unavailable Samsa - TBH, Vj Attending Unavailable Brenda Baker MD Primary Care Provider Brenda Baker Primary Care Physician [phone] Bhupendra ROLLINS Attending Unavailable Allergies Allergy Classification Reported Allergen(s) Allergy Type Date of Onset Reaction(s) Facility (1 source) ALLERGIES NOT ON FILE; Translations: [ALLERGIES NOT ON FILE] Propensity to adverse reactions (disorder) [facility] Repository (1 source) No Known Medication Allergies; Translations: [No Known Medication Allergies] Propensity to adverse reactions (disorder) [facility] Repository Medications Current Medications Medication Drug [...] you for choosing us for your care. oBb Fernandez [facility] HPon 04-06-2024 - Attestation signed by Rom Melton MD at 04/06/2024 11:16 AM Re-explained the procedure to the patient along with the associated risk of pneumothorax, bleeding, hypoxia, and respiratory failure. Patient is agreeable and will proceed with the scheduled bronchoscopy and EBUS TBNA Rom Melton MD Interventional Pulmonary Medicine Pulmonary and Critical Care Medicine [facility] Physicians History Of Present Illness [...] will be sent to Dr. Nemo Rojas [facility] NON-POACHER WRINGER OPERATOR CYTOLOGY - CELLULAR EXAMon 04-06-2024 LAB AP ADDENDUM 1 [facility] Comment on above: Result Comment: This case ([id number]) was sent to [facility] for the Squeeze[employer] 360 Tissue Next and PDL1 22C3 assays. The results read as follows: Detected Alterations and Biomarkers with Associated Treatment Options or Clinical Trials TP53: I195T RAF1: P261R Additional Biomarkers Tumor Mutational Curtis (TMB): 4.0 mut/Mb MSI Status: Stable PD-L1 [...] sensitivity of the TissueNext test. [facility] for a complete description with interpretive content and potential clinical trials. Addendum electronically signed by Linnea Palumbo MD on 2024 at 9:29 AM Performed By: #### L AB13 ####[facility] ([facility])[address] [place] [address] LAB AP CASE REPORT Normal [facility] Comment on above: Result Comment: Non- gynecologic Cytology Case: [id number] Authorizing Provider: Rom Melton MD Collected: 04/06/2024 1145 Ordering Location: [facility] Main Operating Room Received: 04/06/2024 1425 Pathologist: Linnea Palumbo MD Specimen: Lymph Node Station 4R Performed By: #### L AB13 ####[facility] ([facility])[address] [place] [address] LAB AP CLINICAL INFORMATION Normal [facility] Comment on above: Result Comment: Hist ory of adenocarcinoma of the right upper lobe, molecular testing requested Performed By: #### L AB13 ####[facility] ([facility])[address] [place] [address] LAB AP DIAGNOSIS COMMENT There is a moderate amount of tumor cells present in the cell block for additional studies, if clinically indicated. Normal [facility] Comment on above: Performed By: #### L AB13 ####[facility] ([facility])[address] [place] [address] LAB AP GROSS DESCRIPTION [facility] Comment on above: Result Comment: 2 ai r-dried slides, 2 alcohol-fixed slides, 30 mL CytoLyt with hazy, red fluid and clots Performed By: #### L AB13 ####[facility] ([facility] [place] [address] LAB AP INTRAOPERATIVE CONSULTATION [facility] Comment on above: Result Comment: Darshan [...] material submitted.* Performed By: #### L AB13 ####[facility] ([facility])[address] [place] [address] LAB AP MICROSCOPIC DESCRIPTION A. Satisfactory for evaluation. Examination of the prepared smears and cell block reveals numerous tumor cells arranged in clusters and as single cells with finely vacuolated cytoplasm, high n/c ratio, and enlarged nuclei with irregular chromatin and prominent nucleoli. [facility] Comment on above: Performed By: #### L AB13 ####[facility] ([facility])[address] [place] [address] LAB AP REPORT FINAL DIAGNOSIS NARRATIVE [facility] Comment on above: Result Comment: Darshan Lassiter ymph node, station 4R, EBUS-guided fine needle aspiration: - Metastatic adenocarcinoma. Performed By: #### L AB13 ####[facility] ([facility])[address] [place] [address] NURSNOTEon 04-06-2024 NURSNOTE Discharge instructions reviewed with patient sister at bedside. All questions answered at this time Cass Lucero NETWORK SERVICES PROJECT MANAGER [facility] NURSNOTE No chest xray needed post op at this time per Dr. Lorri Lucero NETWORK SERVICES PROJECT MANAGER [facility] POCT GLUCOSE METER UNSOLICIT ED RESULTSon 04-06-2024 Glucose [Mass/Vol] 104 mg/dL Normal 70-105 [facility] Comment on above: Order Comment: Waive d Testing in the ED is performed under the ED CLIA certificate #[id number]. Result Comment: ngro rodriguez Performed By: #### L [id number] #### [facility] ([facility]) [address] [place] [address] Prep for Procedureon 024 Prep for Procedure [id number] Isela De La Rosa 1955 F Date Provider Department Center 04/04[facility]20[facility] No family history on file Normal [facility] Abstracton 04-03-2024 Abstract [id number] Estrella,Isela 1955 F Date Provider Department Center 04/03/2024 [facility] No family history on file [facility] Orders Onlyon 04-03-2024 Orders Only [id number] EstrellaIsela 1955 F Date Provider Department Center 04/03/2024 [facility] No family history on file [facility] Umer 02-15-2024 L Specimen: [id number] Received: 02/16/241241 Status: SOUT Req Num: [id number] Spec Type: Surgical Subm Dr: Vj Glass DO Tissues: A Lung - Transbroncial Biopsy (RT UPPER LOBE MASS BX) Procedures: HE/2, Gross/Micro L4, CK5 6, CK20, CK 7, NAPSIN A, TTF1, IHC First AB, IHC Add AB/5, p40 Age/ Patient Sex Location Account Attending Physician Isela De La Rosa 68/F LABELL [id number] Vj Glass DO SPEC NUM: [id number] RECD: 02/16/24 STATUS: PEGGY RECharlie NUM: [id number] KIMBERLYN: 02/15/24 [facility] DR: Vj Glass DO ENTERED: 02/16/24 [...] adenocarcinoma. Clinical correlation is required. -------- Specimen: [id number] Received: 02/16/24 Status: PEGGY Abreu Num: [id number] Spec Type: Surgical Subm Dr: Vj Glass DO Tissues: A Lung - Transbroncial Biopsy (RT UPPER LOBE MASS BX) Procedures: HE/2, Gross/Micro L4, CK5 6, CK20, CK 7, NAPSIN A, TTF1, IHC First AB, IHC Add AB/5, p40 -------- Patient: Isela De La Rosa [id number] (Continued) -------- Specimen: [id number] Received: 02/16/24 (Continued) Signed (signature on file) Rom Garcia MD 02/23/24 1658 -------- Specimen: [id number] Received: 02/16/24 Status: PEGGY Abreu Num: [id number] Spec Type: Surgical Subm Dr: Vj Glass DO Tissues: A Lung - Transbroncial Biopsy (RT UPPER LOBE MASS BX) Procedures: HE/2, Gross/Micro L4, CK5 6, CK20, CK 7, NAPSIN A, TTF1, IHC First AB, IHC Add AB/5, p40 -------- Patient: Isela De La Rosa [id number] (Continued) -------- Specimen: [id number] Received: 02/16/24-1241 (Continued) Clinical Information Abnormal bronchial mucosa of the right upper lobe Gross Description Received in formalin labeled with the patient's name, date of and right upper lobe mass biopsy are 3 delicate meeks tissue fragments ranging from 0.4 x 0.1 x 0.1 cm to 0.3 x 0.1 x 0.1 cm, entirely submitted in A1. CPT Codes 35963 72834 [id number] -------- -------- Specimen: [id number] Received: 02/16/24 Status: PEGGY Abreu Num: [id number] Spec Type: Surgical Subm Dr: Vj Glass DO Tissues: A Lung - Transbroncial Biopsy (RT UPPER LOBE MASS BX) Procedures: HE/2, Gross/Micro L4, CK5 6, CK20, CK 7, NAPSIN A, TTF1, IHC First AB, IHC Add AB/5, p40 -------- Patient: Isela De La Rosa [id number] (Continued) -------- Signed (signature on file) Rom Garcia MD 02/23/241657 Normal [facility] L Specimen: [id number] Received: 02/16/24 Status: PEGGY Abreu Num: [id number] Spec Type: Cytology Subm Dr: Vj Glass DO Tissues: A BRONWA (RUL) Procedures: HE/2, Gross/Micro L4, Cyto Prepstain, PAPSTN Age/ Patient Sex Location Account Attending Physician Isela De La Rosa 68/F LABELL [id number] Vj Glass DO SPEC NUM: [id number] RECD: 02/16/24 STATUS: PEGGY ABREU NUM: [id number] KIMBERLYN: 02/15/24-[address]: Vj Glass DO ENTERED: 02/16/[address]: Jesu,Nadeem SPEC TYPE: Cytology DEPT: [facility] ENTERED BY: [id number] RECV BY: [id number] ORDERED: HE/2, Gross/Micro L4, Cyto Prepstain, PAPSTN ORDERED: HE/2, Gross/Micro L4, Cyto Prepstain, PAPSTN Pathological Diagnosis Right lung, bronchial washings: Negative for malignant cells. Clinical Information Right lung mass Gross Description Received fresh is 8 ml red cloudy unfixed fluid for cytology said to have been obtained as Right upper lobe lavage. ThinPrep and cell block preparations are prepared for microscopic examination.( ND/al) CPT Codes 68394 -------- -------- Specimen: [id number] Received: 02/16/24 Status: PEGGY Abreu Num: [id number] Spec Type: Cytology Subm Dr: Vj Glass DO Tissues: A BRONWA (RU) Procedures: HE/2, Gross/Micro L4, Cyto Prepstain, PAPSTN -------- Patient: Isela De La Rosa [id number] (Continued) -------- Signed (signature on file) Rom Garcia MD 02/23/24 1536 Normal [facility] NM STRESS/REST MULTIon 06-10 NM STRESS/REST MULTI Patient: ISELA DE LA ROSA Exam Date: 06/10/2021 : 1955 Gender:F Ordering : DR BRENDA BAKER . Admission #: [id number] Family : Order #: [id number] CLICK HERE TO VIEW EXAM RADIOLOGY REPORT [...] Maravilla MD on 06/10/2021 at 12:59 Normal [facility] Vital Signs Date Time Vital Sign Value Performing Clinician Woody valencia 05-25-2024 10:41-0400 Blood Pressure Location Bhupendra NILL [facility] 05-25-2024 10:41-0400 Diastolic blood pressure 93 mm[Hg] Bhupendra NILL [facility] 05-25-2024 10:41-0400 Heart rate 81 /min Bhupendra NILL [facility] 05-25-2024 10:41-0400 Respiratory rate 16 /min Bhupendra NILL [facility] 05-25-2024 10:41-0400 Systolic blood pressure 165 mm[Hg] Bhupendra NILL [facility] Encounters Encounter Date Encounter Type Care Provider Facility Start: 05-25-2024 End: 05-25-2024 ambulatory Bhupendra R NILL Facility:[facility] Start: 05-25-2024 End: 05-25-2024 Patient encounter procedure Bhupendra R NILL [facility] Start: 05-16-2024 ambulatory Bhupendra NILL Facility:[facility] Start: 04-06-2024 End: 04-06-[address] [facility] Start: 04-03-2024 End: 04-03-[address] [facility] Start: 03-15-2024 End: 03-15-2024 Chart abstracting Andreas Pascual MD Work Phone: Hematology/Oncology Start: 02-15-2024 End: 02-15-2024 ambulatory Vj [facility] Work Phone: Start: 02-15-2024 End: 02-15-2024 Departed Referred DO Vj [facility] Work Phone: [place] [facility] Path [facility] Start: 08-08-2021 [...] 03-26-2024 Influenza vaccination Influenza Vacc ine (#1) [facility] Start: 07-26-2023 Advance Directive Discussion Advance Directive Discussion [facility] Start: 03-26-2023 Covid-19 Vaccine ( season) Covid-19 Vaccine ( season) [facility] Start: 2021 Pneumococcal Vaccine : 65+ (1 of 1 - PCV) Pneumococcal Vaccine: 65+ (1 of 1 - PCV) [facility] Start: 2021 Screening for osteoporosis Bone Density Screening [facility] Start: 2016 RSV Vaccine (1 - 1-d ose 60+ series) RSV Vaccine (1 - 1-dose 60+ series) [facility] Start: 2006 Shingrix Vaccine (1 of 2) Shingrix V accine (1 of 2) [facility] Start: 2001 Diabetes Screening Diabetes Screenin g [facility] Start: 2001 Lipid panel Lipid Screening [facility] Start: 2001 Screening for malign ant neoplasm of colon [facility] Start: 1996 Screening for malign ant neoplasm of breast Mammogram Screening [facility] Start: 1975 Urine microalbumin profile DTaP,Tdap,Td Vaccine (1 - Tdap) [facility] Start: 1974 Anxiety Screening Anxiety Screening [facility] Start: 1974 Depression Screening Depression Scre ening [facility] Start: 1974 Hepatitis C screening Hepatitis C Sc reening [facility] Immunizations Immunization Date Immunization Notes Care Provider Fa cility 09-18-2020 SARS-CoV-2 (COVID-19 ) mRNA BNT-162b2 vax [employer] [facility] 08-28-2020 SARS-CoV-2 (COVID-19 ) mRNA BNT-162b2 vax Bhupendra NILL [facility] Payers Date Payer Category Payer Self-pay 2022 Medicare HUMANA MEDICARE HUMANA GOLD PLUS [id number] 2022-Present [phone] [address] [address] [place] [address] HMO [id number] 2022 Medicare [id number] 1958 Unknown [id number] 1955 Unknown [id number] 1955 Unknown [id number] 1955 Unknown [id number] Private Health Insurance [employer] Insurance [facility] [id number] Social History Date Type Detail Facility Tobacco smoking status ARIS Unknown if ever smoked [facility] Work Phone: Start: 1955 Sex Assigned At Female F [facility] Tobacco smoking status NHIS Tobacco smoking consumption unknown [facility] Start: 1955 Sex assigned at [facility] on [facility] Gender identity Not on file [facility] Start: 05-25-2024 Tobacco smoking status Never smoked tobacco (finding) [facility] [place] Tobacco smoking status Never [facility] Functional Status Date Assessment Result Facility 05-25-2024 Functional Status N/A [facility] [place] Clinical Notes 08-08-2021 to 05-25-2024 Note Date & Type Note Facility 05-25-2024 Note General Surgery Offi ce/Clinic Note Chief Complaint consultation for port HPI Staff 69 year old female presents on consultation from Dr. Chester for port placement. Patient with adenocarcinoma of right lung. History of Present Illness 69 yo female with h/o adenocarcinoma of right upper lobe of lung, referred for tevnwq-q-zkge insertion; patient has already begun chemotherapy via [...] upper lobe, right bronchus or lung) plan lgwqvh-z-owlh insertion under anesthesia at [facility], informed consent obtained. Ancef 2 gms [...] SARS-CoV-2 (COVID-19) mRNA BNT-162b2 vax 08/28/[address] [facility] Comment on above: Result Comment: Elec tronically Signed By: RIA BAILEY, Bhupendra Edwards\.br\Date and Time Signed: 05/25/24 16:13 EDT 04-06-2024 Note Patient: Isela edwards Procedure Summary Date: 04/06/24 Room / Location: [facility] Main Operating Room Anesthesia Start: 1126 Anesthesia [...] no known notable events for this encounter. [facility] 04-06-2024 Note Airway Date/Time: 04/06/2024 11:32 AM Urgency: elective Airway not difficult General Information and Staff Patient location during procedure: OR Anesthesiologist: Kevon Lamar MD Resident/DRAPERY CUTTER MACHINE/CAA: Ananda Villatoro MD Performed: resident/DRAPERY CUTTER MACHINE/CAA Indications and Patient Condition Indications for airway [...] 22 Number of attempts at approach: 1 [facility] 04-06-2024 Note Patient: Isela edwards Procedure Summary Date: 04/06/24 Room / Location: [facility] Main Operating Room Anesthesia Start: 1126 Anesthesia [...] and follow verbal commands throughout transport process [facility] 04-06-2024 Note Patient: Isela edwards Procedure Information Date/Time: 04/06/24 1130 Scheduled providers: Rom Melton MD Procedure: BRONCHOSCOPY Location: [facility] Main Operating Room Relevant Problems No relevant [...] 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 Additional Equipment Requests [facility] 04-03-[address] Chester . Patient needs more tissue for molecular testing. EBUS order placed [facility] 08-08-2021 Note PROCEDURE: XR KNEE L [...] authenticated by: CARIE VELÁZQUEZ Date: 2021-08-08 14:54 [facility] Evaluation + Plan note No data available for this section [facility] [place] Evaluation note No assessment inform ation available [facility] Work Phone: Hospital Discharge instructions No data available for this section [facility] [place] Progress note No data available for this section [facility] [place] Summary Purpose Family History No Family History [...] DATE CREATED AUTHOR AUTHOR'S ORGANIZ ATION 2024 [facility] DATE CREATED AUTHOR AUTHOR'S ORGANIZ ATION 04/30/2024 [facility] DATE CREATED AUTHOR AUTHOR'S ORGANIZ ATION 05/26/2024 Jim Lau [facility] Care Teams (unrecognized sec tion and content) Team Status: Inactive Member Role Status Dates Vj CROWLEY DO Attending Provider Active Start: February 15, 2024 End: February 15, 2024 Packaging Sales Representative Relationship Specialty Start Date End Date Brenda Baker MD [address] [place] [address] PCP - General Family Medicine 03/02/24 Goals [...] or prosecute any alcohol or drug abuse patient.[facility] FOR RECORDS PERTAINING TO PATIENTS WHO ARE [...] BE BASED ON THE PRIMARY CLINICAL RECORDS. [facility]. provides no warranty or guarantee of the accuracy or completeness of information in this document.
[2024-06-09 09:50] LABS: Bilirubin Urine NEGATIVE (NEGATIVE); Blood Urine TRACE-I (NEGATIVE); Clarity Urine CLEAR (CLEAR); Color Urine LT. YELLOW (YELLOW); Glucose Urine UA NEGATIVE (NEGATIVE); Ketones Urine NEGATIVE (NEGATIVE); Leukocyte Esterase Urine NEGATIVE (NEGATIVE); Nitrite Urine NEGATIVE (NEGATIVE); Protein Urine NEGATIVE (NEG/TRACE); Specific Gravity Urine <=1.005 (1.005-1.025); Urobilinogen Urine 0.2 EU/dL (0.2-1.0)
== END 2024-06-09 09:07 | disposition home or self-care (01) ==
LOC: LAB 09:10
PROVIDERS: PCP Family Medicine; Visit Provider Internal Medicine Hematology & Oncology
DX: Z51.11 Encounter for antineoplastic chemotherapy (principal); C34.11 Malignant neoplasm of upper lobe, right bronchus or lung; R11.2 Nausea with vomiting, unspecified; C77.1 Secondary and unspecified malignant neoplasm of intrathoracic lymph nodes; C78.7 Secondary malignant neoplasm of liver and intrahepatic bile duct; C79.51 Secondary malignant neoplasm of bone; D64.9 Anemia, unspecified; D69.6 Thrombocytopenia, unspecified; D70.1 Agranulocytosis secondary to cancer chemotherapy; Z79.899 Other long term (current) drug therapy
CPT/HCPCS: 71046; 81003; 87086

== ENCOUNTER 2024-06-20 07:33 | Outpatient (RCR) | payer MEDICARE, SELFPAY ==
[2024-05-30 09:30] VITALS: BP 153/93; PULSE 79; TEMP 36.7; O2SAT 97
[2024-05-30] MEDS: 0.9 % SODIUM CHLORIDE 250 ML 10 ML IV (09:40)
[2024-05-30 09:59] LABS: Basophils Percent Auto 0.4 % (0.2-2.0); Hematocrit 31.2 % (36.0-48.0); Hemoglobin 10.6 g/dL (12.0-16.0); Immature Granulocytes Abs Auto 0.07 10^3/uL (0.00-0.03); Immature Granulocytes Pct Auto 0.9 % (0.0-0.5); Lymphocytes Absolute Auto 1.1 10^3/uL (1.2-3.8); Lymphocytes Percent Auto 13.7 % (20.5-60.0); Mean Corpuscular Hemoglobin 29.3 pg (26.7-34.0); Mean Corpuscular Volume 86.2 fL (81.0-99.0); Mean Platelet Volume 11.9 fL (9.5-13.5); Monocytes Absolute Auto 1.2 10^3/uL (0.3-0.8); Neutrophils Absolute Auto 5.6 10^3/uL (1.4-6.5); Platelet Count 162 10^3/uL (150-450); Red Blood Count 3.62 10^6/uL (4.20-5.40)
[2024-05-30 10:17] LABS: Alanine Aminotransferase 44 U/L (14-59); Albumin Globulin Ratio 0.7; Albumin Level 3.1 g/dL (3.4-5.0); Alkaline Phosphatase 159 U/L (46-116); Anion Gap 13.2; Aspartate Amino Transferase 31 U/L (15-37); BUN Creatinine Ratio 7.1; Bilirubin Total 0.3 mg/dL (0.2-1.0); Calcium 8.1 mg/dL (8.5-10.1); Carbon Dioxide 32.4 mmol/L (21.0-32.0); Chloride 98 mmol/L (98-107); Estimated GFR (African America >60 (>=60 mL/min/1.73m^2); Estimated GFR (Non-African Ame 56 (>=60 mL/min/1.73m^2); Globulin 4.3 g/dL; Glucose 125 mg/dL (74-106); Magnesium 2.1 mg/dL (1.8-2.4); Sodium 141 mmol/L (136-145); Thyroid Stimulating Hormone 3.174 uIU/mL (0.358-3.740); Total Protein 7.4 g/dL (6.4-8.2)
[2024-05-30 10:19] LABS: Potassium 2.6 mmol/L (3.5-5.1)
[2024-05-30] MEDS: PALONOSETRON HCL 0.25 MG/5 ML VIAL IV (10:58)
[2024-05-30] MEDS: DEXAMETHASONE SODIUM PHOSPHATE 10 MG in 0.9 % SODIUM CHLORIDE 100 ML 303 MG IV (11:00)
[2024-05-30] MEDS: APREPITANT 130 MG in 0.9 % SODIUM CHLORIDE 100 ML 236 MG IV (11:26)
[2024-05-30] MEDS: PEMBROLIZUMAB 200 MG in 0.9 % SODIUM CHLORIDE 100 ML 216 MG IV (12:00)
[2024-05-30] MEDS: POTASSIUM CHLORIDE 20 MEQ in 0.9 % SODIUM CHLORIDE 250 ML 130 MEQ IV (12:01)
[2024-05-30] MEDS: CARBOPLATIN IV (12:49)
[2024-05-30] MEDS: SODIUM CHLORIDE 0.9% IV ×2 (12:49→13:28)
[2024-05-30] MEDS: PEMETREXED DISODIUM IV (13:28)
[2024-05-30 14:25] VITALS: BP 148/84; PULSE 88; TEMP 36.6; O2SAT 95
--- NOTE | 2024-05-30 15:52 | PC.NURSE ---
0930: Pt. to [facility] amb. accompanied by daughter. Weight obtained. Seated in recliner. VSS. Blood drawn from left upper arm PICC line without difficulty, sent to lab. PICC line site without s&s of infection or infiltration. Flushes easily. Pt. relays having recent issue with constipation. Tried multiple meds for relief, and able to move bowels after several days of constipation. Meds reviewed and informed pt. of meds that cause constipation. Instructed to follow strict bowel regimen throughout chemo treatments including increased fluid intake, stool softeners, and M.O.M. Relays understanding. 1000: Dr. Chester to chairside for MD visit. 1058: Pre-meds initiated at this time. Dr. Chester aware of low K+, new order given. 1100: IV Decadron initiated. Pt. given Ensure protein drink. Also provided several drinks to take home to increase protein level. 1126: Cinvanti started at this time as ordered. Lemon pie ordered per. pt. request. 1200: IV K+ infusion initiated along with Keytruda infusion. Pt. without c/o or needs. 1230: Keytruda completed without adverse reaction. 1249: Carboplatin infusion initiated as ordered. Attempt to nap. 1320: Carbo completed without incident. IV Alimta initiated as ordered. Pt. cont. to deny needs or c/o. 1340: PICC line dressing changed using sterile technique, pt. tolerate well. 1410: IV K+ completed at this time. Picc line flushed. VSS. Pt. tolerated all without c/o. 1425: VSS. D/c'd amb to home with daughter.
[2024-06-01 08:55] VITALS: BP 134/72; PULSE 88; TEMP 36.6; O2SAT 96
[2024-06-01] MEDS: POTASSIUM CHLORIDE 20 MEQ in 0.9 % SODIUM CHLORIDE 250 ML 130 MEQ IV (09:19)
[2024-06-01] MEDS: PEGFILGRASTIM 6 MG/0.6 ML SYRINGE SQ (09:19)
[2024-06-01] MEDS: 0.9 % SODIUM CHLORIDE 250 ML 20 ML IV (09:21)
[2024-06-01 09:40] LABS: Anion Gap 11.7; BUN Creatinine Ratio 7.1; Calcium 8.1 mg/dL (8.5-10.1); Carbon Dioxide 31.2 mmol/L (21.0-32.0); Chloride 105 mmol/L (98-107); Estimated GFR (African America >60 (>=60 mL/min/1.73m^2); Estimated GFR (Non-African Ame 56 (>=60 mL/min/1.73m^2); Glucose 102 mg/dL (74-106); Sodium 145 mmol/L (136-145)
[2024-06-01 09:44] LABS: Potassium 2.9 mmol/L (3.5-5.1)
--- NOTE | 2024-06-01 10:06 | PC.NURSE ---
0855: Pt. to [facility] amb. accompanied by daughter. Seated in recliner. VSS. Pt. denies c/o pain or nausea at this time. Affect appears sad . Reassurance and comfort provided. PICC line to right upper arm in place and without s&s of infection or infiltration. Flushes easily with good blood return. Blood obtained for ordered labs. Pt. given Ensure protein drink and warm blankets. 0919: Medicated with Neulasta SQ, see documentation. Pt. tolerated without c/o. IV KCL 20meq infusion initiated at this time. Pt. denies needs or c/o. 1010: Remains awake. Denies c/o. KCL infusion maintained.
--- NOTE | 2024-06-01 11:35 | PC.NURSE ---
1130: KCL infusion completed without s&s of adverse reaction. PICC line flushed with saline, new cap applied. Pt. without c/o. Awaits ride home.
--- NOTE | 2024-06-01 12:15 | PC.NURSE ---
1135: Pt. d/c'd amb. to home with daughter.
[2024-06-09 10:00] VITALS: BP 128/84; PULSE 91; TEMP 36.2; O2SAT 97
[2024-06-13 09:35] LABS: Alanine Aminotransferase 30 U/L (14-59); Albumin Globulin Ratio 0.8; Albumin Level 3.3 g/dL (3.4-5.0); Alkaline Phosphatase 143 U/L (46-116); Anion Gap 15.8; Aspartate Amino Transferase 16 U/L (15-37); BUN Creatinine Ratio 11.5; Bilirubin Total 0.2 mg/dL (0.2-1.0); Calcium 8.2 mg/dL (8.5-10.1); Chloride 100 mmol/L (98-107); Estimated GFR (African America 49 (>=60 mL/min/1.73m^2); Estimated GFR (Non-African Ame 40 (>=60 mL/min/1.73m^2); Globulin 4.1 g/dL; Glucose 125 mg/dL (74-106); Magnesium 1.7 mg/dL (1.8-2.4); Sodium 141 mmol/L (136-145); Total Protein 7.4 g/dL (6.4-8.2)
[2024-06-13 09:40] LABS: Potassium 2.8 mmol/L (3.5-5.1)
[2024-06-13 09:56] VITALS: BP 143/89; PULSE 89; TEMP 36.6; O2SAT 98
[2024-06-13] MEDS: POTASSIUM CHLORIDE 20 MEQ in 0.9 % SODIUM CHLORIDE 250 ML 130 MEQ IV (10:19)
[2024-06-13 10:41] LABS: Basophils Percent Auto 0.2 % (0.2-2.0); Eosinophils Percent Auto 0.4 % (0.9-7.0); Hematocrit 26.2 % (36.0-48.0); Immature Granulocytes Abs Auto 0.06 10^3/uL (0.00-0.03); Immature Granulocytes Pct Auto 1.1 % (0.0-0.5); Lymphocytes Absolute Auto 0.9 10^3/uL (1.2-3.8); Lymphocytes Percent Auto 16.8 % (20.5-60.0); Mean Corpuscular HGB Conc 34.4 g/dL (29.9-35.2); Mean Corpuscular Volume 87.3 fL (81.0-99.0); Mean Platelet Volume 13.8 fL (9.5-13.5); Monocytes Absolute Auto 0.7 10^3/uL (0.3-0.8); Monocytes Percent Auto 12.1 % (1.7-12.0); Neutrophils Absolute Auto 3.9 10^3/uL (1.4-6.5); Neutrophils Percent Auto 69.4 % (43.0-75.0); Red Cell Distribution Width 14.4 % (11.0-15.0); White Blood Count 5.5 10^3/uL (4.0-11.0)
[2024-06-13 10:44] LABS: Platelet Count 48 10^3/uL (150-450)
--- NOTE | 2024-06-13 11:50 | NUTR.NU ---
Met w/pt during infusion treatment for diet recommendations. Pt states food doesn't taste good, and food smells deter PO intakes. Provided handout, ?Ways to Increase Calorie Intake During Cancer Treatment,? booklet from [employer], ?Eating Hints: Before, during, and after Cancer Treatment,? and several Ensure coupons since she drinks and likes Ensure products.Encouraged smaller, frequent meals as tolerated. Provided Dietitian contact info and encouraged pt to phone or email w/any questions or concerns. Will follow PRN.
[2024-06-13] MEDS: SODIUM CHLORIDE 0.9% IV (12:34)
[2024-06-13] MEDS: ZOLEDRONIC ACID IV (12:34)
--- NOTE | 2024-06-13 14:03 | PC.NURSE ---
Pt here for labs and Zometa. Labs drawn from PICC. Plt ct=48, K+=2.8, Dr. Chester notified. Order rec'd to give 20 meq Kcl IV today and Dr. Chester to send script for oral potassium. Hold chemo next wk and repeat cbc, cmp 06/20/24. Chemo in 2 wks. Pt due for port placement tomorrow, Dr. Chester states to notify Dr. Macias (surgeon) office of platelet count. Anay [employer] spoke with surgery office and port placement cancelled. Pt d/c'd stable. Returns in 1 wk for labs and PICC drsg change.
[2024-06-20 09:15] VITALS: BP 144/84; PULSE 86; TEMP 37.2; O2SAT 97
[2024-06-20 09:27] LABS: Basophils Percent Auto 0.6 % (0.2-2.0); Eosinophils Percent Auto 0.4 % (0.9-7.0); Hematocrit 27.6 % (36.0-48.0); Hemoglobin 9.3 g/dL (12.0-16.0); Immature Granulocytes Abs Auto 0.05 10^3/uL (0.00-0.03); Immature Granulocytes Pct Auto 1.1 % (0.0-0.5); Lymphocytes Absolute Auto 1.3 10^3/uL (1.2-3.8); Lymphocytes Percent Auto 27.7 % (20.5-60.0); Mean Corpuscular HGB Conc 33.7 g/dL (29.9-35.2); Mean Corpuscular Hemoglobin 30.1 pg (26.7-34.0); Mean Corpuscular Volume 89.3 fL (81.0-99.0); Mean Platelet Volume 13.8 fL (9.5-13.5); Monocytes Absolute Auto 0.7 10^3/uL (0.3-0.8); Monocytes Percent Auto 14.6 % (1.7-12.0); Neutrophils Absolute Auto 2.6 10^3/uL (1.4-6.5); Neutrophils Percent Auto 55.6 % (43.0-75.0); Platelet Count 77 10^3/uL (150-450); Red Blood Count 3.09 10^6/uL (4.20-5.40); Red Cell Distribution Width 15.6 % (11.0-15.0); White Blood Count 4.7 10^3/uL (4.0-11.0)
[2024-06-20 09:38] LABS: Percent Iron Saturation 34.1 %
[2024-06-20 09:40] LABS: Erythrocyte Sedimentation Rate 73 mm/hr (<=30)
[2024-06-20 09:41] LABS: Alanine Aminotransferase 23 U/L (14-59); Albumin Globulin Ratio 0.8; Albumin Level 3.2 g/dL (3.4-5.0); Alkaline Phosphatase 121 U/L (46-116); Anion Gap 16.5; Aspartate Amino Transferase 13 U/L (15-37); BUN Creatinine Ratio 9.9; Bilirubin Total 0.2 mg/dL (0.2-1.0); Carbon Dioxide 24.9 mmol/L (21.0-32.0); Chloride 102 mmol/L (98-107); Estimated GFR (African America 45 (>=60 mL/min/1.73m^2); Estimated GFR (Non-African Ame 37 (>=60 mL/min/1.73m^2); Globulin 4.2 g/dL; Glucose 122 mg/dL (74-106); Potassium 3.4 mmol/L (3.5-5.1); Sodium 140 mmol/L (136-145); Total Protein 7.4 g/dL (6.4-8.2)
[2024-06-20 09:50] LABS: Magnesium 1.4 mg/dL (1.8-2.4); Thyroid Stimulating Hormone 5.192 uIU/mL (0.358-3.740)
--- NOTE | 2024-06-20 09:51 | PC.NURSE ---
0915: [facility] for [facility] with Dr. Chester. Weight obtained. Seated in recliner. VSS. PICC line in place to left upper arm and without s&s of infection. Dressing to PICC changed using sterile technique. Pt. tolerated without c/o. Daughter at bedside. Breakfast ordered 0950: Dr. Chester to chairside for M.D. visit.
[2024-06-20] MEDS: POTASSIUM CHLORIDE 20 MEQ in 0.9 % SODIUM CHLORIDE 250 ML 130 MEQ IV (10:31)
[2024-06-20] MEDS: MAGNESIUM SULFATE IN WATER 2 GM/50 ML PREMIX IV (10:32)
--- NOTE | 2024-06-20 11:19 | PC.NURSE ---
1031: IV KCL and Mag. sulfate infusions initiated at this time. Pt. denies needs. 1122: Lunch tray ordered.
--- NOTE | 2024-06-20 12:46 | PC.NURSE ---
1132: IV magnesium completed at this time without c/o adverse reaction. Denies needs. 1231: KCL infusion completed without adverse reaction. PICC line flushed with saline, new green cap applied. 1235: Pt. d/c'd amb. to home with daughter.
[2024-06-21 04:08] LABS: Vitamin B12 >2000 pg/mL (232-1245)
== END 2024-06-21 08:25 | disposition home or self-care (01) ==
LOC: HEMC 07:33
PROVIDERS: PCP Family Medicine; Visit Provider Internal Medicine Hematology & Oncology
DX: Z51.11 Encounter for antineoplastic chemotherapy (principal); C34.11 Malignant neoplasm of upper lobe, right bronchus or lung; R11.2 Nausea with vomiting, unspecified; C77.1 Secondary and unspecified malignant neoplasm of intrathoracic lymph nodes; C78.7 Secondary malignant neoplasm of liver and intrahepatic bile duct; C79.51 Secondary malignant neoplasm of bone; D69.6 Thrombocytopenia, unspecified; D70.1 Agranulocytosis secondary to cancer chemotherapy; Z79.899 Other long term (current) drug therapy; Z86.16 Personal history of COVID-19; Z90.710 Acquired absence of both cervix and uterus; R05.3 Chronic cough
CPT/HCPCS: 36415; 36591; 36592; 80048; 80053; 82607; 82728; 82746; 83540; 83550; 83735; 84443; 85007; 85025; 85027; 85652; 96365; 96366; 96367; 96368; 96372; 96375; 96411; 96413; 96417; G0463; J0185; J1100; J2469; J2506; J3475; J3480; J3489; J9045; J9271; J9305

== ENCOUNTER 2024-07-10 14:33 | Outpatient (OUT) | payer MEDICARE, SELFPAY ==
--- NOTE | 2024-07-10 14:40 | PE_ITS ---
The [address] [address] Patient Name: JASON DE LA ROSA MRN: [id number] date: 1955 Sex: F Assigned Patient Location: PETCT Current Patient Location: [facility] Accession/Order Number: [id number] Exam Date: 07/10/2024 15:57 Report Date: 07/10/2024 21:55 At the request of: MIYA ALAN Procedure: PET skull to mid thigh PET/CT: HISTORY: Lung cancer with history of chemotherapy 06/20/2024. COMPARISON: PET/CT 03/06/2024. TECHNIQUE: The patient was injected with 13.89 mCi of F-18 fluorodeoxyglucose (FDG), and an emission scan was performed from the base of the skull to the mid thigh. Noncontrast CT was performed for attenuation correction and anatomic localization. The blood glucose level was 113 mg/dl. The uptake time was 50 minutes. FINDINGS: HEAD AND NECK: There is intense diffuse activity again seen in the thyroid gland, image 55, SUV max 10, previously 10.7 and the thyroid appears diffusely enlarged on CT. A previously noted hypermetabolic right supraclavicular lymph node has improved with an SUV max of 3.6, previously 10.4 and measuring 8 mm, previously 9 mm. CHEST: The SUVmax of the mediastinum = 2.6 using the patient's body weight as the normalization method. There is intense activity about the tip of the PICC in the SVC consistent with residual injected activity. The previously noted hypermetabolic masslike opacity in the right upper lobe currently demonstrates an SUV max of 4.6, previously 9.8 and measures 2.9 x 4.6 cm, previously 3.7 x 6.1 cm. Adjacent groundglass opacity and interlobular septal thickening is again noted and stable. A previously noted groundglass nodule in the superior segment of the left lower lobe appears stable measuring 1.1 cm with minimal activity, SUV max 1.7, previously 1.9. Hypermetabolic mediastinal right hilar lymph nodes are again seen which appear improving including for example a subcarinal node on image 91 with SUV max 5.0, previously 9.7 and this measures approximately 1.4 x 1.3 cm, previously 1.5 x 1.9 cm. Right paratracheal and right hilar lymph nodes also appear improving. ABDOMEN AND PELVIS: The previously noted hypermetabolic lesion in the right lobe of the liver appears resolved. Otherwise normal distribution of activity. MUSCULOSKELETAL SYSTEM: Multiple hypermetabolic osseous lesions are again noted. Index lesions include in the left T2 vertebral body, image 61, SUV max 12.7, previously 9.0 measuring 1.7 x 1.6 cm, previously 1.5 x 1.1 cm, the anterior L1 vertebral body, image 147, SUV max 20, previously 12.6 measuring 2.4 x 1.2 cm, previously 1.4 x 0.9 cm and the sacrum on image 204, SUV max 15.7, previously 12.1 measuring 1.5 x 1.2 cm, previously 1.6 [address] FINDINGS: There is mild atherosclerotic coronary artery calcification. There is a stable 5 mm right lower lobe pulmonary nodule on image 111. There is low attenuation of the blood in the ventricular chambers consistent with anemia. The patient is status-post hysterectomy. There are multiple non-hypermetabolic sclerotic osseous lesions consistent with treated metastases. PET/PET skull to mid thigh IMPRESSION: 1. Interval improvement in the hypermetabolic right upper lobe pulmonary malignancy. Adjacent interlobular septal thickening is again noted which may be due to lymphangitic carcinomatosis, hemorrhage or asymmetric interstitial edema. 2. Improving right supraclavicular, mediastinal and right hilar kym metastases. 3. Resolved metastatic lesion in the liver. 4. Multifocal osseous metastases appear progressed compared to the previous study however this could potentially be due to chemotherapy related flare phenomenon given the otherwise favorable response to therapy. Consider a follow-up CT 6 months after completion of therapy. 5. Stable diffuse intense FDG uptake in the thyroid gland which appears enlarged. This may be due to thyroiditis or Graves' disease. 6. Additional CT findings as described above including stable pulmonary nodules. Electronically authenticated by: CARIE MAJANO Date: 07/10/2024 21:55
== END 2024-07-10 14:34 | disposition home or self-care (01) ==
LOC: PETCT 14:33
PROVIDERS: PCP Family Medicine; Visit Provider Internal Medicine Hematology & Oncology
DX: Z51.11 Encounter for antineoplastic chemotherapy (principal); C34.11 Malignant neoplasm of upper lobe, right bronchus or lung; R11.2 Nausea with vomiting, unspecified; C77.1 Secondary and unspecified malignant neoplasm of intrathoracic lymph nodes; C78.7 Secondary malignant neoplasm of liver and intrahepatic bile duct; C79.51 Secondary malignant neoplasm of bone; D64.9 Anemia, unspecified; D69.6 Thrombocytopenia, unspecified; D70.1 Agranulocytosis secondary to cancer chemotherapy; Z79.899 Other long term (current) drug therapy
CPT/HCPCS: 78815; A9552

== ENCOUNTER 2024-07-25 07:32 | Outpatient (RCR) | payer MEDICARE, SELFPAY ==
--- OUTSIDE RECORDS SUMMARY | 2024-06-27 07:40 | XMS_ITS | CCD ---
Author Organization [facility] Care Team Providers Care Supervisor Cell Operation Name Role Phone OLIVIA, DR GUTIERREZ Primary [...] ON FILE] Propensity to adverse reactions (disorder) [facility] Repository (1 source) No Known Medication Allergies; Translations: [No Known Medication Allergies] Propensity to adverse reactions (disorder) [facility] Repository Medications Current Medications Medication Drug Class(es) [...] choosing us for your care. Bob Fernandez [facility] HPon 04-06-2024 - Attestation signed by Rom Melton MD at 04/06/2024 11:16 AM Re-explained the procedure to the patient along with the associated risk of pneumothorax, bleeding, hypoxia, and respiratory failure. Patient is agreeable and will proceed with the scheduled bronchoscopy and EBUS TBNA Rom Melton MD Interventional Pulmonary Medicine Pulmonary and Critical Care Medicine [facility] History Of Present Illness 68 [...] will be sent to Dr. 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 The results read as follows: Detected Alterations and Biomarkers with Associated Treatment Options or Clinical Trials TP53: I195T RAF1: P261R Additional Biomarkers Tumor Mutational [place]wood (TMB): 4.0 mut/Mb MSI Status: Stable PD-L1 [...] sensitivity of the TissueNext test. See separate [facility] report for a complete description with interpretive content and potential clinical trials. Addendum electronically signed by Linnea Palumbo MD on 2024 at 9:29 AM Performed By: #### L AB13 ####[facility] (Cloutex)[address] [place] [address] LAB AP CASE REPORT Normal [facility] Comment on above: Result Comment: Non- gynecologic Cytology Case: [id number] Authorizing Provider: Rom Melton MD Collected: 04/06/2024 1145 Ordering Location: [facility] Main Operating Room Received: 04/06/2024 1425 Pathologist: Linnea Palumbo MD Specimen: Lymph Node Station 4R Performed By: #### L AB13 ####[facility] (Cloute[facility])[address] [place] [address] LAB AP CLINICAL INFORMATION Normal [facility] Comment on above: Result Comment: Hist ory of adenocarcinoma of the right upper lobe, molecular testing requested Performed By: #### L AB13 ####[facility] (Cloute[facility])[address] [place] [address] LAB AP DIAGNOSIS COMMENT There is a moderate amount of tumor cells present in the cell block for additional studies, if clinically indicated. Normal [facility] Comment on above: Performed By: #### L AB13 ####[facility] ([facility])[address] [place] [address] LAB AP GROSS DESCRIPTION [facility] Comment on above: Result Comment: 2 ai r-dried slides, 2 alcohol-fixed slides, 30 mL CytoLyt with hazy, red fluid and clots Performed By: #### L AB13 ####[facility] ([facility] [place] [address] LAB AP INTRAOPERATIVE CONSULTATION [facility] Comment on above: Result Comment: Darshan [...] material submitted.* Performed By: #### L AB13 ####[facility] ([facility])[address] [place] [address] LAB AP MICROSCOPIC DESCRIPTION A. Satisfactory for evaluation. Examination of the prepared smears and cell block reveals numerous tumor cells arranged in clusters and as single cells with finely vacuolated cytoplasm, high n/c ratio, and enlarged nuclei with irregular chromatin and prominent nucleoli. [facility] Comment on above: Performed By: #### L AB13 ####[facility] ([facility])[address] [place] [address] LAB AP REPORT FINAL DIAGNOSIS NARRATIVE [facility] Comment on above: Result Comment: Darshan Lassiter ymph node, station 4R, EBUS-guided fine needle aspiration: - Metastatic adenocarcinoma. Performed By: #### L AB13 ####[facility] ([facility])[address] [place] [address] NURSNOTEon 04-06-2024 NURSNOTE Discharge instructions reviewed with patient sister at bedside. All questions answered at this time Cass Lucero GIZZARD PEELER [facility] NURSNOTE No chest xray needed post op at this time per Dr. Lorri Lucero GIZZARD PEELER [facility] POCT GLUCOSE METER UNSOLICIT ED RESULTSon 04-06-2024 Glucose [Mass/Vol] 104 mg/dL Normal 70-105 [facility] Comment on above: Order Comment: Waive d Testing in the ED is performed under the ED CLIA certificate #[id number]. Result Comment: ngro rodriguez Performed By: #### L [id number] #### [facility] (BEAKER) [address] [place] [address] Prep for Procedureon 024 Prep for Procedure [id number] Isela De La Rosa 1955 F Date Provider Department Center 04/04/2024 [facility] No family history on file Normal [facility] Abstracton 04-03-2024 Abstract [id number] Estrella,Isela 1955 F Date Provider Department Center 04/03/2024 [facility] No family history on file [facility] Orders Onlyon 04-03-2024 Orders Only [id number] EstrellaIsela 1955 F Date Provider Department Center 04/03/2024 [facility] No family history on file [facility] Umer 02-15-2024 L Specimen: [id number] Received: 02/16/241241 Status: SOUT Req Num: [id number] Spec Type: Surgical Subm Dr: Vj Glass DO Tissues: A Lung - Transbroncial Biopsy (RT UPPER LOBE MASS BX) Procedures: HE/2, Gross/Micro L4, CK5 6, CK20, CK 7, NAPSIN A, TTF1, IHC First AB, IHC Add AB/5, p40 Age/ Patient Sex Location Account Attending Physician Isela De La Rosa 68/F LABELL [id number] Vj Glass DO SPEC NUM: [id number] RECD: 02/16/24 STATUS: PEGGY RECharlie NUM: [id number] KIMBERLYN: 02/15/[address] [facility] [address]: Vj Glass DO ENTERED: 02/16/24 OT [...] adenocarcinoma. Clinical correlation is required. -------- Specimen: [id number] Received: 02/16/24 Status: PEGGY Abreu Num: [id number] Spec Type: Surgical Subm Dr: Vj Glass DO Tissues: A Lung - Transbroncial Biopsy (RT UPPER LOBE MASS BX) Procedures: HE/2, Gross/Micro L4, CK5 6, CK20, CK 7, NAPSIN A, TTF1, IHC First AB, IHC Add AB/5, p40 -------- Patient: Isela De La Rosa [id number] (Continued) -------- Specimen: [id number] Received: 02/16/24 (Continued) Signed (signature on file) Rom Garcia MD 02/23/24 1658 -------- Specimen: [id number] Received: 02/16/24 Status: PEGGY Abreu Num: [id number] Spec Type: Surgical Subm Dr: Vj Glass DO Tissues: A Lung - Transbroncial Biopsy (RT UPPER LOBE MASS BX) Procedures: HE/2, Gross/Micro L4, CK5 6, CK20, CK 7, NAPSIN A, TTF1, IHC First AB, IHC Add AB/5, p40 -------- Patient: Isela De La Rosa [id number] (Continued) -------- Specimen: [id number] Received: 02/16/24-1241 (Continued) Clinical Information Abnormal bronchial mucosa of the right upper lobe Gross Description Received in formalin labeled with the patient's name, date of and right upper lobe mass biopsy are 3 delicate meeks tissue fragments ranging from 0.4 x 0.1 x 0.1 cm to 0.3 x 0.1 x 0.1 cm, entirely submitted in A1. CPT Codes 69101 46904 [id number] -------- -------- Specimen: [id number] Received: 02/16/24 Status: PEGGY Abreu Num: [id number] Spec Type: Surgical Subm Dr: Vj Glass DO Tissues: A Lung - Transbroncial Biopsy (RT UPPER LOBE MASS BX) Procedures: HE/2, Gross/Micro L4, CK5 6, CK20, CK 7, NAPSIN A, TTF1, IHC First AB, IHC Add AB/5, p40 -------- Patient: Isela De La Rosa [id number] (Continued) -------- Signed (signature on file) Rom Garcia MD 02/23/241657 Normal [facility] L Specimen: [id number] Received: 02/16/24 Status: PEGGY Abreu Num: [id number] Spec Type: Cytology Subm Dr: Vj Glass DO Tissues: A BRONWA (RUL) Procedures: HE/2, Gross/Micro L4, Cyto Prepstain, PAPSTN Age/ Patient Sex Location Account Attending Physician Isela De La Rosa 68/F LABELL [id number] Vj Glass DO SPEC NUM: [id number] RECD: 02/16/24 STATUS: PEGGY ABREU NUM: [id number] KIMBERLYN: 02/15/24-[address]: Vj Glass DO ENTERED: 02/16/[address]: Jesu,Nadeem SPEC TYPE: Cytology DEPT: [facility] ENTERED BY: [id number] RECV BY: [id number] ORDERED: HE/2, Gross/Micro L4, Cyto Prepstain, PAPSTN ORDERED: HE/2, Gross/Micro L4, Cyto Prepstain, PAPSTN Pathological Diagnosis Right lung, bronchial washings: Negative for malignant cells. Clinical Information Right lung mass Gross Description Received fresh is 8 ml red cloudy unfixed fluid for cytology said to have been obtained as Right upper lobe lavage. ThinPrep and cell block preparations are prepared for microscopic examination.( SD/al) CPT Codes 99957 -------- -------- Specimen: [id number] Received: 02/16/24 Status: PEGGY Abreu Num: [id number] Spec Type: Cytology Subm Dr: Vj Glass DO Tissues: A BRONWA (RU) Procedures: HE/2, Gross/Micro L4, Cyto Prepstain, PAPSTN -------- Patient: Isela De La Rosa [id number] (Continued) -------- Signed (signature on file) Rom Garcia MD 02/23/24 1536 Normal [facility] NM STRESS/REST MULTIon 06-10 NM STRESS/REST MULTI Patient: ISELA DE LA ROSA Exam Date: 06/10/2021 : 1955 Gender:F Ordering : DR BRENDA BAKER . Admission #: [id number] Family : Order #: [id number] CLICK HERE TO VIEW EXAM RADIOLOGY REPORT [...] Maravilla MD on 06/10/2021 at 12:[address] [facility] Vital Signs Date Time Vital Sign Value Performing Clinician Woody valencia 05-25-2024 10:41-0400 Blood Pressure Location Bhupendra NILL [facility] 05-25-2024 10:41-0400 Diastolic blood pressure 93 mm[Hg] Bhupendra NILL [facility] 05-25-2024 10:41-0400 Heart rate 81 /min Bhupendra NILL [facility] 05-25-2024 10:41-0400 Respiratory rate 16 /min Bhupendra NILL [facility] 05-25-2024 10:41-0400 Systolic blood pressure 165 mm[Hg] Bhupendra NILL [facility] Encounters Encounter Date Encounter Type Care Provider Facility Start: 05-25-2024 End: 05-25-2024 ambulatory Bhupendra R NILL Facility:[facility] Start: 05-25-2024 End: 05-25-2024 Patient encounter procedure Bhupendra R NILL [facility] Start: 05-16-2024 ambulatory Bhupendra NILL Facility:[facility] Start: 04-06-2024 End: 04-06-2024 ambulatory [facility] Start: 04-03-2024 End: 04-03-2024 ambulatory [facility] Start: 03-15-2024 End: 03-15-2024 Chart abstracting Andreas Pascual MD Work Phone: Hematology/Oncology Start: 02-15-2024 End: 02-15-2024 ambulatory Vj [facility] Work Phone: Start: 02-15-2024 End: 02-15-2024 Departed Referred DO Vj [facility] Work Phone: [facility] Start: 08-08-2021 [...] 03-26-2024 Influenza vaccination Influenza Vacc ine (#1) [facility] Start: 07-26-2023 Advance Directive Discussion Advance Directive Discussion [facility] Start: 03-26-2023 Covid-19 Vaccine ( season) Covid-19 Vaccine ( season) [facility] Start: 2021 Pneumococcal Vaccine : 65+ (1 of 1 - PCV) Pneumococcal Vaccine: 65+ (1 of 1 - PCV) [facility] Start: 2021 Screening for osteoporosis Bone Density Screening [facility] Start: 2016 RSV Vaccine (1 - 1-d ose 60+ series) RSV Vaccine (1 - 1-dose 60+ series) [facility] Start: 2006 Shingrix Vaccine (1 of 2) Shingrix V accine (1 of 2) [facility] Start: 2001 Diabetes Screening Diabetes Screenin g [facility] Start: 2001 Lipid panel Lipid Screening [facility] Start: 2001 Screening for malign ant neoplasm of colon [facility] Start: 1996 Screening for malign ant neoplasm of breast Mammogram Screening [facility] Start: 1975 Urine microalbumin profile DTaP,Tdap,Td Vaccine (1 - Tdap) [facility] Start: 1974 Anxiety Screening Anxiety Screening [facility] Start: 1974 Depression Screening Depression Scre ening [facility] Start: 1974 Hepatitis C screening Hepatitis C Sc reening [facility] Immunizations Immunization Date Immunization Notes Care Provider Fa cility 09-18-2020 SARS-CoV-2 (COVID-19 ) mRNA BNT-162b2 vax KormeliL [facility] 08-28-2020 SARS-CoV-2 (COVID-19 ) mRNA BNT-162b2 vax Bhupendra NILL [facility] Payers Date Payer Category Payer Self-pay 2022 Medicare HUMANA MEDICARE HUMANA GOLD PLUS [id number] 2022-Present [phone] [address] [address] [place] [address] HMO [id number] 2022 Medicare [id number] 1958 Unknown [id number] 1955 Unknown [id number] 1955 Unknown [id number] 1955 Unknown [id number] Private Health Insurance [employer] Insurance [facility] [id number] Social History Date Type Detail Facility Tobacco smoking status NCIS Unknown if ever smoked [facility] Work Phone: Start: 1955 Sex Assigned At Female F [facility] Tobacco smoking status NHIS Tobacco smoking consumption unknown [facility] Start: 1955 [facility] assigned at [facility] Gender identity Not on file [facility] Start: 05-25-2024 Tobacco smoking status Never smoked tobacco (finding) [facility] Tobacco smoking status Never [facility] Functional Status Date Assessment Result Facility 05-25-2024 Functional Status N/A [facility] Clinical Notes 08-08-2021 to 05-25-2024 Note Date & Type Note Facility 05-25-2024 Note General Surgery Offi ce/Clinic Note Chief Complaint consultation for port HPI Staff 69 year old female presents on consultation from Dr. Chester for port placement. Patient with adenocarcinoma of right lung. History of Present Illness 69 yo female with h/o adenocarcinoma of right upper lobe of lung, referred for fjzqil-x-[id number] insertion; patient has already begun chemotherapy via [...] upper lobe, right bronchus or lung) plan yogmvl-i-gucg insertion under anesthesia at [facility], informed consent obtained. Ancef 2 gms [...] SARS-CoV-2 (COVID-19) mRNA BNT-162b2 vax 08/28/2020 Recorded [facility] Comment on above: Result Comment: Elec tronically Signed By: RIA BAILEY, Bhupendra Edwards\.br\Date and Time Signed: 05/25/24 16:13 EDT 04-06-2024 Note Patient: Isela edwards Procedure Summary Date: 04/06/24 Room / Location: [facility] Main Operating Room Anesthesia Start: 1126 Anesthesia [...] no known notable events for this encounter. [facility] 04-06-2024 Note Airway Date/Time: 04/06/2024 11:32 AM Urgency: elective Airway not difficult General Information and Staff Patient location during procedure: OR Anesthesiologist: Kevon Lamar MD Resident/TAB MACHINE OPERATOR/CAA: Ananda Villatoro MD Performed: resident/TAB MACHINE OPERATOR/CAA Indications and Patient Condition Indications for airway [...] 22 Number of attempts at approach: 1 [facility] 04-06-2024 Note Patient: Isela edwards Procedure Summary Date: 04/06/24 Room / Location: [facility] Main Operating Room Anesthesia Start: 1126 Anesthesia [...] and follow verbal commands throughout transport process [facility] 04-06-2024 Note Patient: Isela edwards Procedure Information Date/Time: 04/06/24 1130 Scheduled providers: Rom Melton MD Procedure: BRONCHOSCOPY Location: [facility] Main Operating Room Relevant Problems No relevant [...] 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 Additional Equipment Requests [facility] 04-03-[address] Chester . Patient needs more tissue for molecular testing. EBUS order placed [facility] 08-08-2021 Note PROCEDURE: XR KNEE L T [...] authenticated by: CARIE VELÁZQUEZ Date: 2021-08-08 14:[address] [facility] Evaluation + Plan note No data available for this section [facility] Evaluation note No assessment inform ation available [facility] Work Phone: Hospital Discharge instructions No data available for this section [facility] Progress note No data available for this section [facility] Summary Purpose Family History No Family History [...] DATE CREATED AUTHOR AUTHOR'S ORGANIZ ATION 2024 [facility] DATE CREATED AUTHOR AUTHOR'S ORGANIZ ATION 04/30/2024 [facility] DATE CREATED AUTHOR AUTHOR'S ORGANIZ ATION 05/26/2024 Jim Lau [facility] Care Teams (unrecognized sec tion and content) Team Status: Inactive Member Role Status Dates Vj CROWLEY DO Attending Provider Active Start: February 15, 2024 End: February 15, 2024 Supervisor Cell Operation Relationship Specialty Start Date End Date Brenda Baker MD [address] [place] [address] PCP - General Family Medicine 03/02/24 Goals [...] or prosecute any alcohol or drug abuse patient.[facility] FOR RECORDS PERTAINING TO PATIENTS WHO ARE [...] BE BASED ON THE PRIMARY CLINICAL RECORDS. [employer] [facility]. provides no warranty or guarantee of the accuracy or completeness of information in this document.
[2024-06-27 09:25] LABS: Basophils Percent Auto 0.6 % (0.2-2.0); Eosinophils Percent Auto 0.4 % (0.9-7.0); Hematocrit 27.8 % (36.0-48.0); Hemoglobin 9.2 g/dL (12.0-16.0); Immature Granulocytes Abs Auto 0.01 10^3/uL (0.00-0.03); Immature Granulocytes Pct Auto 0.2 % (0.0-0.5); Lymphocytes Absolute Auto 0.9 10^3/uL (1.2-3.8); Lymphocytes Percent Auto 18.3 % (20.5-60.0); Mean Corpuscular HGB Conc 33.1 g/dL (29.9-35.2); Mean Corpuscular Hemoglobin 30.3 pg (26.7-34.0); Mean Corpuscular Volume 91.4 fL (81.0-99.0); Mean Platelet Volume 12.5 fL (9.5-13.5); Monocytes Absolute Auto 0.9 10^3/uL (0.3-0.8); Monocytes Percent Auto 16.5 % (1.7-12.0); Neutrophils Absolute Auto 3.3 10^3/uL (1.4-6.5); Platelet Count 218 10^3/uL (150-450); Red Blood Count 3.04 10^6/uL (4.20-5.40); Red Cell Distribution Width 16.5 % (11.0-15.0); White Blood Count 5.2 10^3/uL (4.0-11.0)
[2024-06-27 09:31] VITALS: BP 147/84; PULSE 88; TEMP 35.9; O2SAT 98
[2024-06-27 09:44] LABS: Alanine Aminotransferase 20 U/L (14-59); Albumin Globulin Ratio 0.8; Albumin Level 3.3 g/dL (3.4-5.0); Alkaline Phosphatase 121 U/L (46-116); Anion Gap 16.1; Aspartate Amino Transferase 18 U/L (15-37); BUN Creatinine Ratio 7.6; Bilirubin Total 0.2 mg/dL (0.2-1.0); Calcium 8.5 mg/dL (8.5-10.1); Carbon Dioxide 24.7 mmol/L (21.0-32.0); Chloride 103 mmol/L (98-107); Estimated GFR (African America 40 (>=60 mL/min/1.73m^2); Estimated GFR (Non-African Ame 33 (>=60 mL/min/1.73m^2); Globulin 4.2 g/dL; Glucose 135 mg/dL (74-106); Potassium 3.8 mmol/L (3.5-5.1); Sodium 140 mmol/L (136-145); Total Protein 7.5 g/dL (6.4-8.2)
[2024-06-27 09:48] LABS: Free T4 0.73 ng/dL (0.76-1.46)
[2024-06-27 09:52] LABS: Thyroid Stimulating Hormone 6.925 uIU/mL (0.358-3.740)
[2024-06-27 10:11] LABS: Magnesium 1.4 mg/dL (1.8-2.4)
[2024-06-27] MEDS: MAGNESIUM SULFATE IN WATER 2 GM/50 ML PREMIX IV (10:35)
[2024-06-27] MEDS: 0.9 % SODIUM CHLORIDE 1,000 ML 500 ML IV (11:30)
[2024-06-27] MEDS: DEXAMETHASONE SOD PHOS 4 MG/ML VIAL 6 MG IV (12:30)
--- NOTE | 2024-06-27 13:02 | PC.NURSE ---
Pt here for C.4D.1 Keytruda/Alimta/Carboplatin. Labs drawn from PICC, results reviewed. Order rec'd to hold tx d/t elevated kidney function, give Dex 6mg IVP and 1 L NS, obtain UA/C & S. Oral Prednisone taper sent to pt pharm and nephrology consult task entered per MD. Also, Mag 2gm IVPB given for mag level=1.4. Pt tolerated infusion without incident. Education provided on nutrition and hydration. Pt d/c'd stable.
[2024-06-27 13:52] LABS: Bilirubin Urine NEGATIVE (NEGATIVE); Blood Urine NEGATIVE (NEGATIVE); Clarity Urine CLEAR (CLEAR); Color Urine LT. YELLOW (YELLOW); Glucose Urine UA NEGATIVE (NEGATIVE); Ketones Urine NEGATIVE (NEGATIVE); Leukocyte Esterase Urine NEGATIVE (NEGATIVE); Nitrite Urine NEGATIVE (NEGATIVE); Protein Urine NEGATIVE (NEG/TRACE); Specific Gravity Urine <=1.005 (1.005-1.025); Urobilinogen Urine 0.2 EU/dL (0.2-1.0)
[2024-07-04 11:55] LABS: Basophils Percent Auto 0.3 % (0.2-2.0); Eosinophils Percent Auto 0.3 % (0.9-7.0); Hematocrit 27.8 % (36.0-48.0); Hemoglobin 9.3 g/dL (12.0-16.0); Immature Granulocytes Abs Auto 0.05 10^3/uL (0.00-0.03); Immature Granulocytes Pct Auto 0.7 % (0.0-0.5); Lymphocytes Percent Auto 26.2 % (20.5-60.0); Mean Corpuscular HGB Conc 33.5 g/dL (29.9-35.2); Mean Corpuscular Hemoglobin 31.3 pg (26.7-34.0); Mean Corpuscular Volume 93.6 fL (81.0-99.0); Mean Platelet Volume 10.3 fL (9.5-13.5); Monocytes Absolute Auto 1.1 10^3/uL (0.3-0.8); Monocytes Percent Auto 14.5 % (1.7-12.0); Neutrophils Absolute Auto 4.5 10^3/uL (1.4-6.5); Platelet Count 340 10^3/uL (150-450); Red Blood Count 2.97 10^6/uL (4.20-5.40); Red Cell Distribution Width 17.2 % (11.0-15.0); White Blood Count 7.7 10^3/uL (4.0-11.0)
[2024-07-04 12:09] LABS: Alanine Aminotransferase 25 U/L (14-59); Albumin Globulin Ratio 0.8; Albumin Level 3.3 g/dL (3.4-5.0); Alkaline Phosphatase 110 U/L (46-116); Anion Gap 12.7; Aspartate Amino Transferase 16 U/L (15-37); Bilirubin Total 0.2 mg/dL (0.2-1.0); Calcium 7.9 mg/dL (8.5-10.1); Carbon Dioxide 26.6 mmol/L (21.0-32.0); Chloride 104 mmol/L (98-107); Estimated GFR (African America 44 (>=60 mL/min/1.73m^2); Estimated GFR (Non-African Ame 36 (>=60 mL/min/1.73m^2); Globulin 4.2 g/dL; Glucose 114 mg/dL (74-106); Potassium 3.3 mmol/L (3.5-5.1); Sodium 140 mmol/L (136-145); Total Protein 7.5 g/dL (6.4-8.2)
[2024-07-04 12:17] LABS: Magnesium 1.2 mg/dL (1.8-2.4); Thyroid Stimulating Hormone 8.836 uIU/mL (0.358-3.740)
[2024-07-05 11:20] VITALS: BP 141/82; PULSE 68; TEMP 35.9; O2SAT 99
[2024-07-05] MEDS: MAGNESIUM SULFATE IN WATER 2 GM/50 ML PREMIX IV (12:16)
[2024-07-05] MEDS: POTASSIUM CHLORIDE IV (12:16)
[2024-07-05] MEDS: SODIUM CHLORIDE 0.9% IV (12:16)
[2024-07-11 09:03] VITALS: BP 174/91; PULSE 87; TEMP 36.5; O2SAT 100
[2024-07-11 09:27] LABS: Basophils Percent Auto 0.3 % (0.2-2.0); Eosinophils Percent Auto 0.5 % (0.9-7.0); Hematocrit 29.7 % (36.0-48.0); Hemoglobin 9.8 g/dL (12.0-16.0); Immature Granulocytes Abs Auto 0.04 10^3/uL (0.00-0.03); Immature Granulocytes Pct Auto 0.7 % (0.0-0.5); Lymphocytes Absolute Auto 1.2 10^3/uL (1.2-3.8); Lymphocytes Percent Auto 19.9 % (20.5-60.0); Mean Corpuscular Hemoglobin 30.8 pg (26.7-34.0); Mean Corpuscular Volume 93.4 fL (81.0-99.0); Mean Platelet Volume 13.3 fL (9.5-13.5); Monocytes Absolute Auto 0.8 10^3/uL (0.3-0.8); Monocytes Percent Auto 12.5 % (1.7-12.0); Neutrophils Percent Auto 66.1 % (43.0-75.0); Platelet Count 121 10^3/uL (150-450); Red Blood Count 3.18 10^6/uL (4.20-5.40); Red Cell Distribution Width 16.6 % (11.0-15.0); White Blood Count 6.1 10^3/uL (4.0-11.0)
[2024-07-11 09:58] LABS: Alanine Aminotransferase 21 U/L (14-59); Albumin Globulin Ratio 0.8; Albumin Level 3.3 g/dL (3.4-5.0); Alkaline Phosphatase 103 U/L (46-116); Anion Gap 14.6; Aspartate Amino Transferase 14 U/L (15-37); BUN Creatinine Ratio 9.6; Bilirubin Total 0.2 mg/dL (0.2-1.0); Calcium 8.9 mg/dL (8.5-10.1); Carbon Dioxide 25.7 mmol/L (21.0-32.0); Chloride 105 mmol/L (98-107); Estimated GFR (African America 52 (>=60 mL/min/1.73m^2); Estimated GFR (Non-African Ame 43 (>=60 mL/min/1.73m^2); Globulin 4.2 g/dL; Glucose 147 mg/dL (74-106); Magnesium 1.3 mg/dL (1.8-2.4); Potassium 3.3 mmol/L (3.5-5.1); Sodium 142 mmol/L (136-145); Total Protein 7.5 g/dL (6.4-8.2)
[2024-07-11] MEDS: CYANOCOBALAMIN 1,000 MCG/ML VIAL 1000 MCG IM (10:37)
[2024-07-11] MEDS: DEXAMETHASONE SODIUM PHOSPHATE 10 MG in 0.9 % SODIUM CHLORIDE 100 ML 303 MG IV (10:40)
[2024-07-11] MEDS: PALONOSETRON HCL 0.25 MG/5 ML VIAL IV (10:40)
[2024-07-11 10:41] LABS: Thyroid Stimulating Hormone 8.667 uIU/mL (0.358-3.740)
[2024-07-11] MEDS: 0.9 % SODIUM CHLORIDE 250 ML 10 ML IV (10:50)
[2024-07-11] MEDS: APREPITANT 130 MG in 0.9 % SODIUM CHLORIDE 100 ML 236 MG IV (11:15)
[2024-07-11] MEDS: MAGNESIUM SULFATE IN WATER 2 GM/50 ML PREMIX IV (11:30)
[2024-07-11] MEDS: PEMBROLIZUMAB 200 MG in 0.9 % SODIUM CHLORIDE 100 ML 216 MG IV (11:55)
[2024-07-11] MEDS: CARBOPLATIN IV (12:48)
[2024-07-11] MEDS: SODIUM CHLORIDE 0.9% IV ×2 (12:48→13:28)
[2024-07-11] MEDS: PEMETREXED DISODIUM IV (13:28)
[2024-07-11] MEDS: DENOSUMAB 120 MG/1.7 ML VIAL SQ (13:32)
[2024-07-11 14:00] VITALS: BP 146/72; PULSE 78; TEMP 36.7; O2SAT 97
--- NOTE | 2024-07-11 15:21 | PC.NURSE ---
0903: Pt. to [facility] amb. for chemo. Weight obtained, seated in recliner. VSS. PICC line to left upper arm in place and without s&s of infection or infiltration. Flushes easily with good blood return. Blood drawn from PICC for ordered labs. Pt. without c/o. Assessment completed, see documentation. Warm blankets and fluid provided. 0950: Labs resulted. Dr. Chester to bedside for MD appt. 1037: Pre-chemo meds initiated. Pt. without c/o. 1155: IV Keytruda initiated at this time. Lunch tray ordered.
[2024-07-12 13:53] VITALS: BP 153/79; PULSE 77; TEMP 36.7; O2SAT 99
[2024-07-12] MEDS: PEGFILGRASTIM 6 MG/0.6 ML SYRINGE SQ (13:58)
[2024-07-17 13:15] VITALS: BP 116/78; PULSE 72; TEMP 36.3; O2SAT 18
[2024-07-17 13:43] LABS: Hematocrit 27.2 % (36.0-48.0); Hemoglobin 8.9 g/dL (12.0-16.0); Mean Corpuscular HGB Conc 32.7 g/dL (29.9-35.2); Mean Corpuscular Volume 94.8 fL (81.0-99.0); Mean Platelet Volume 13.8 fL (9.5-13.5); Platelet Count 55 10^3/uL (150-450); Red Blood Count 2.87 10^6/uL (4.20-5.40); Red Cell Distribution Width 16.3 % (11.0-15.0)
[2024-07-17 13:44] LABS: Bilirubin Urine NEGATIVE (NEGATIVE); Blood Urine TRACE-L (NEGATIVE); Clarity Urine CLEAR (CLEAR); Color Urine LT. YELLOW (YELLOW); Glucose Urine UA NEGATIVE (NEGATIVE); Ketones Urine NEGATIVE (NEGATIVE); Leukocyte Esterase Urine NEGATIVE (NEGATIVE); Nitrite Urine NEGATIVE (NEGATIVE); Protein Urine TRACE mg/dL (NEG/TRACE); Specific Gravity Urine <=1.005 (1.005-1.025); Urobilinogen Urine 0.2 EU/dL (0.2-1.0)
[2024-07-17 13:58] LABS: Alanine Aminotransferase 22 U/L (14-59); Albumin Globulin Ratio 0.9; Albumin Level 3.3 g/dL (3.4-5.0); Alkaline Phosphatase 124 U/L (46-116); Anion Gap 13.3; Aspartate Amino Transferase 19 U/L (15-37); BUN Creatinine Ratio 13.1; Bilirubin Total 0.4 mg/dL (0.2-1.0); Calcium 8.6 mg/dL (8.5-10.1); Carbon Dioxide 27.4 mmol/L (21.0-32.0); Chloride 103 mmol/L (98-107); Estimated GFR (African America 53 (>=60 mL/min/1.73m^2); Estimated GFR (Non-African Ame 44 (>=60 mL/min/1.73m^2); Globulin 3.8 g/dL; Glucose 141 mg/dL (74-106); Potassium 3.7 mmol/L (3.5-5.1); Sodium 140 mmol/L (136-145); Total Protein 7.1 g/dL (6.4-8.2)
[2024-07-17 14:04] LABS: Band Neutrophils Absolute 0.1 10^3/uL (0.0-0.3); Lymphocytes Absolute Manual 0.42 10^3/uL (1.20-3.80); Metamyelocytes Absolute Manual 0.03; Monocytes Absolute Manual 0.06 10^3/uL (0.30-0.80); Segmented Neut Absolute Manual 2.43 10^3/uL (1.4-6.5)
[2024-07-17 15:24] LABS: BOX Test Reference Lab FIRELANDS
--- NOTE | 2024-07-17 15:24 | PC.NURSE ---
1315 Arrival ambulatory. here for picc line care. patient states she has had some left flank/back pain, states it is more with movement, but difficult to discribe. vs obtained. deneis any fever chills, dysuria, cough, shortness of breath, ua collected and sent to lab as well as cbc/cmp. left upper arm picc intact, old dressing intact. removed old dressing site care performed. external catheter lenth 0 cm. site clear, cleansed with chlorhexadine, air dried. skin prep applied. new CHG dressing applied. line flushed, labs drawn, new caps applied. patient tolerated well.
[2024-07-20 09:32] LABS: BOX Test Result NO GROWTH 2 DAYS
[2024-07-25 11:22] LABS: Hematocrit 25.5 % (36.0-48.0); Hemoglobin 8.4 g/dL (12.0-16.0); Mean Corpuscular HGB Conc 32.9 g/dL (29.9-35.2); Mean Corpuscular Hemoglobin 31.1 pg (26.7-34.0); Mean Corpuscular Volume 94.4 fL (81.0-99.0); Mean Platelet Volume 13.3 fL (9.5-13.5); Red Cell Distribution Width 15.6 % (11.0-15.0); White Blood Count 9.2 10^3/uL (4.0-11.0)
[2024-07-25 11:28] LABS: Alanine Aminotransferase 24 U/L (14-59); Albumin Globulin Ratio 0.9; Albumin Level 3.4 g/dL (3.4-5.0); Alkaline Phosphatase 123 U/L (46-116); Anion Gap 17.2; Aspartate Amino Transferase 16 U/L (15-37); BUN Creatinine Ratio 8.8; Bilirubin Total 0.1 mg/dL (0.2-1.0); Calcium 7.4 mg/dL (8.5-10.1); Carbon Dioxide 25.9 mmol/L (21.0-32.0); Chloride 105 mmol/L (98-107); Estimated GFR (African America 39 (>=60 mL/min/1.73m^2); Estimated GFR (Non-African Ame 32 (>=60 mL/min/1.73m^2); Globulin 3.9 g/dL; Glucose 105 mg/dL (74-106); Magnesium 1.1 mg/dL (1.8-2.4); Potassium 3.1 mmol/L (3.5-5.1); Sodium 145 mmol/L (136-145); Thyroid Stimulating Hormone 10.815 uIU/mL (0.358-3.740); Total Protein 7.3 g/dL (6.4-8.2)
[2024-07-25 11:37] LABS: Free T4 0.84 ng/dL (0.76-1.46)
[2024-07-25 11:43] LABS: Platelet Count 47 10^3/uL (150-450)
[2024-07-25 11:49] LABS: Band Neutrophils Absolute 0.2 10^3/uL (0.0-0.3); Lymphocytes Absolute Manual 2.94 10^3/uL (1.20-3.80); Monocytes Absolute Manual 0.64 10^3/uL (0.30-0.80)
[2024-07-25 11:50] LABS: Poikilocytosis 1+; Segmented Neut Absolute Manual 5.42 10^3/uL (1.4-6.5)
[2024-07-25 11:51] LABS: Tear Drop Cells 1+
[2024-07-25] MEDS: 0.9 % SODIUM CHLORIDE 1,000 ML 999 ML IV (12:30)
[2024-07-25] MEDS: POTASSIUM CHLORIDE IV (12:59)
[2024-07-25] MEDS: SODIUM CHLORIDE 0.9% IV (12:59)
[2024-07-25] MEDS: MAGNESIUM SULFATE IV (12:59)
[2024-07-25 15:03] VITALS: BP 157/80; PULSE 87; TEMP 36.1; O2SAT 87
--- NOTE | 2024-07-25 15:05 | PC.NURSE ---
1200 left upper arm picc dressing removed, site care performed, new stat lock and chg dressing applied. excellent blood return labs drawn, caps changed, flushed with NS tolerated well, this documentation was performed by Sravani Rivas RN
--- NOTE | 2024-07-25 15:08 | PC.NURSE ---
1415 tolerated IV fluids as well as potassium magnesium infusion without any issues. 1430 PICC flushed with NS, CHG cap applied. Released ambulatory
== END 2024-07-25 23:59 | disposition home or self-care (01) ==
LOC: HEMC 07:32
PROVIDERS: PCP Internal Medicine Hematology & Oncology; Visit Provider Internal Medicine Hematology & Oncology
DX: Z51.11 Encounter for antineoplastic chemotherapy (principal); C34.11 Malignant neoplasm of upper lobe, right bronchus or lung; C77.1 Secondary and unspecified malignant neoplasm of intrathoracic lymph nodes; C78.7 Secondary malignant neoplasm of liver and intrahepatic bile duct; C79.51 Secondary malignant neoplasm of bone; C64.9 Malignant neoplasm of unspecified kidney, except renal pelvis; D69.6 Thrombocytopenia, unspecified; Z79.899 Other long term (current) drug therapy; D70.1 Agranulocytosis secondary to cancer chemotherapy; R11.2 Nausea with vomiting, unspecified; D64.81 Anemia due to antineoplastic chemotherapy; Z86.16 Personal history of COVID-19; Z90.710 Acquired absence of both cervix and uterus; R05.3 Chronic cough; N28.9 Disorder of kidney and ureter, unspecified
CPT/HCPCS: 36415; 36592; 80053; 81003; 83735; 84270; 84439; 84443; 85007; 85025; 85027; 87086; 96361; 96365; 96366; 96367; 96368; 96372; 96375; 96411; 96413; 96417; G0463; J0185; J0897; J1100; J2469; J2506; J3420; J3475; J3480; J9045; J9271; J9305

== ENCOUNTER 2024-08-02 09:21 | Outpatient (OUT) | payer MEDICARE, SELFPAY ==
--- NOTE | 2024-08-02 09:15 | NM_ITS ---
[address] [address] Patient Name: JASON DE LA ROSA MRN: [id number] date: 1955 Sex: F Assigned Patient Location: [place] Current Patient Location: [place] Accession/Order Number: [id number] Exam Date: 08/02/2024 09:10 Report Date: 08/02/2024 13:04 At the request of: MIYA ALAN Procedure: IA bone scan whole body EXAMINATION: IA bone scan whole body HISTORY: MALIGNANT NEOPLASM OF UPPER LOBE, RIGHT BRONCHUS OR LUNG COMPARISON: 07/10/2024 TECHNIQUE: After obtaining the patient's consent, 25.6 mCi Technetium 99m MDP was injected intravenously. Images were obtained approximately two hours later. FINDINGS: Region: Whole-body ABNORMALITIES: Increased activity identified in the right acromial process, left upper thoracic spine, L1 and L4 vertebral bodies, left mid sacrum, left sacroiliac joint and ileum, bilateral femoral diaphyses, right greater than left OTHER: Negative. IA/IA bone scan whole body IMPRESSION: Multiple areas of abnormal uptake likely representing metastatic disease to the bones Electronically authenticated by: JOAQUIM CHAN Date: 08/02/2024 13:04
== END 2024-08-02 09:22 | disposition home or self-care (01) ==
LOC: NM 09:21
PROVIDERS: PCP Family Medicine; Visit Provider Internal Medicine Hematology & Oncology
DX: C34.11 Malignant neoplasm of upper lobe, right bronchus or lung (principal); C77.1 Secondary and unspecified malignant neoplasm of intrathoracic lymph nodes; C78.7 Secondary malignant neoplasm of liver and intrahepatic bile duct; C79.51 Secondary malignant neoplasm of bone; D64.9 Anemia, unspecified; D69.6 Thrombocytopenia, unspecified; D70.1 Agranulocytosis secondary to cancer chemotherapy; Z79.899 Other long term (current) drug therapy
CPT/HCPCS: 78306; A9503

== ENCOUNTER 2024-08-02 16:45 | Outpatient (OUT) | payer MEDICARE, SELFPAY ==
--- NOTE | 2024-08-02 17:16 | US_ITS ---
[place] [id number] Patient Name: JASON DE LA ROSA MRN: [id number] date: 1955 Sex: F Assigned Patient Location: [place] Current Patient Location: Accession/Order Number: [id number] Exam Date: 08/02/2024 17:25 Report Date: 08/03/2024 07:10 At the request of: BRENDA DONG Procedure: US venous doppler UE RT EXAM: US venous doppler UE RT HISTORY: LOCALIZED SWELLING OF RIGHT FOREARM R22.31 COMPARISON: None. TECHNIQUE: Grayscale, color and Doppler FINDINGS: Region: Right arm Thrombus: None Flow: Normal Augmentation: Normal Compressibility: Normal US/US venous doppler UE RT IMPRESSION: No deep or superficial vein thrombus identified in the right arm Electronically authenticated by: JOAQUIM CHAN Date: 08/03/2024 07:10
== END 2024-08-02 16:46 | disposition home or self-care (01) ==
LOC: US 16:47
PROVIDERS: PCP Family Medicine; Visit Provider Family Medicine
DX: C34.11 Malignant neoplasm of upper lobe, right bronchus or lung (principal); R11.2 Nausea with vomiting, unspecified; C79.51 Secondary malignant neoplasm of bone; C77.1 Secondary and unspecified malignant neoplasm of intrathoracic lymph nodes; R22.31 Localized swelling, mass and lump, right upper limb; C78.7 Secondary malignant neoplasm of liver and intrahepatic bile duct; C64.9 Malignant neoplasm of unspecified kidney, except renal pelvis; Z79.899 Other long term (current) drug therapy; D69.6 Thrombocytopenia, unspecified; D70.1 Agranulocytosis secondary to cancer chemotherapy; D64.81 Anemia due to antineoplastic chemotherapy
CPT/HCPCS: 78306; 93971; A9503

== ENCOUNTER 2024-08-03 07:37 | Outpatient (OUT) | payer MEDICARE, SELFPAY ==
--- NOTE | 2024-08-03 07:39 | US_ITS ---
The [address] [address] Patient Name: JASON DE LA ROSA MRN: [id number] date: 1955 Sex: F Assigned Patient Location: Current Patient Location: Accession/Order Number: [id number] Exam Date: 08/03/2024 07:43 Report Date: 08/03/2024 11:11 At the request of: MIYA ALAN Procedure: US renal BI PROCEDURE: US renal BI, 08/03/2024 7:43 AM EST CLINICAL INDICATIONS: Malignant neoplasm of the right lung, chemotherapy, nausea. COMPARISON: None TECHNIQUE: Renal and bladder sonogram, monte scale, color evaluation. FINDINGS: Right kidney: 9.9 x 5.5 x 5.9 cm, cortex 1.0 cm Left kidney: 10.2 x 4.3 x 4.4 cm, cortex 0.9 cm Prevoid bladder volume: 204 mL. Postvoid urinary bladder volume: 32 mL. Urinary bladder is unremarkable. Ureteral jets intact bilaterally. Focal abnormality is not evident. Increased echogenicity of renal parenchyma is seen. Renal cortical thinning is noted. Focal renal abnormality is not demonstrated. Nephrolithiasis is not seen. No hydronephrosis or obstructive uropathy. US/US renal BI IMPRESSION: 1. Medical renal disease, no hydronephrosis or obstructive uropathy. 2. No nephrolithiasis or focal abnormality. 3. Unremarkable urinary bladder. 4. 204 mL prevoid volume, 32 mL postvoid urinary bladder residual. Electronically authenticated by: SHANE CORNELL Date: 08/03/2024 11:11
== END 2024-08-03 07:38 | disposition home or self-care (01) ==
LOC: US 07:37
PROVIDERS: PCP Family Medicine; Visit Provider Internal Medicine Hematology & Oncology
DX: Z51.11 Encounter for antineoplastic chemotherapy (principal); C34.11 Malignant neoplasm of upper lobe, right bronchus or lung; R11.2 Nausea with vomiting, unspecified; C79.51 Secondary malignant neoplasm of bone; C77.1 Secondary and unspecified malignant neoplasm of intrathoracic lymph nodes; C78.7 Secondary malignant neoplasm of liver and intrahepatic bile duct; D64.9 Anemia, unspecified; D69.6 Thrombocytopenia, unspecified; Z79.899 Other long term (current) drug therapy; D70.1 Agranulocytosis secondary to cancer chemotherapy; D64.81 Anemia due to antineoplastic chemotherapy
CPT/HCPCS: 76775

== ENCOUNTER 2024-08-10 10:14 | Outpatient (OUT) | payer MEDICARE, SELFPAY ==
--- OUTSIDE RECORDS SUMMARY | 2024-08-10 10:24 | XMS_ITS | CCD ---
Author Organization [facility] Care Team Providers Care Build Technician Name Role Phone DR BRENDA BAKER Primary Care Unavailable LETITIA, DR GUTIERREZ Admitting Unavailable LETITIA, DR GUTIERREZ Attending Unavailable LETITIA, DR GUTIERREZ Consulting Unavailable WEST, DR JOAQUIM Ashton Consulting Unavailable LETITIA, DR GUTIERREZ Primary Care Unavailable LETITIA, DR GUTIERREZ Admitting Unavailable LETITIA, DR GUTIERREZ Attending Unavailable LETITIA, DR GUTIERREZ Consulting Unavailable ZIEBER, DR CARIE Edwards Consulting Unavailable Samsa - TBH, DO Vj Attending Provider ROM MELTON Referring Unavailable ROM MELTON Referring Unavailable ROM MELTON Attending Unavailable LINH, ROM Referring Unavailable Brenda Baker MD Primary Care Provider [phone] Brenda Baker Primary Care Physician Bhupendra ROLLINS Attending Unavailable Samsa - TBHVj Admitting Unavailable Samsa - TBH, Vj Attending Unavailable Kristi Chester Attending Unavailable Kristi Chester Admitting Unavailable Kristi Chester MD Attending Provider Allergies Allergy Classification Reported Allergen(s) Allergy Type Date of Onset Reaction(s) Facility (1 source) ALLERGIES NOT ON FILE; Translations: [ALLERGIES NOT ON FILE] Propensity to adverse reactions (disorder) [facility] Repository (1 source) No Known Medication Allergies; Translations: [No Known Medication Allergies] Propensity to adverse reactions (disorder) [facility] Repository Medications Current Medications Medication Drug Class(es) Dates Sig (Normalized) Sig (Original) acetaminophen 300 mg / codeine phosphate 30 mg oral tablet (2 sources) Opioid Agonist Start: 07-05-2024 take 2 tablets by mouth every eight hours as needed Acetaminophen-Cod eine 300-30 mg tablet Active 2 TAB PO Every 8 hours as needed July 05, 2024 12:00am Start: 05-18-2024 acetaminophen- codeine 300 mg-30 mg Tab Refill(s) 0, oral, 0 Refill(s), Take by mouth. Start Date: 05/18/24 Status: Ordered dexamethasone 2 mg oral tablet (1 source) Corticosteroid Start: 07-05-2024 take 1 tablet by mouth once daily Dexamethasone 2 mg tablet Active 2 MG PO Daily July 05, 2024 12:00am 72 hr fentaNYL 0.025 mg/hr transdermal system (2 sources) Opioid Agonist Start: 07-05-2024 Fentanyl 25 mc g/hr patch 72 hour Active 1 PATCH TRANSDERML Every 72 hours July 05, 2024 12:00am Start: 05-18-2024 fentaNYL 25 mc g/hr Transderm ER Film 1 patch(es), Topical, q72hr, Refill(s) 0 Start Date: 05/18/24 Status: Ordered magnesium oxide 250 mg oral tablet (1 source) Start: 08-03-2024 take 1 tablet by mouth twice daily Magnesium Oxide 250 mg magnesium tablet Active 250 MG PO Twice daily August 03, 2024 12:00am metoprolol tartrate 50 mg oral tablet (1 source) beta-Adrenergic Inez Start: 08-03-2024 take 1 tablet by mouth twice daily Metoprolol Tartrate 50 mg tablet Active 50 MG PO Twice daily August 03, 2024 12:00am Multivitamin preparation (1 source) Start: 05-18-2024 take 1 tablet by mouth once daily multivitamin 1 tab(s), Oral, Daily, Refill(s) 0 Start Date: 05/18/24 Status: Ordered ondansetron 4 mg disintegrating oral tablet (2 sources) Serotonin-3 Receptor Antagonist Start: 07-05-2024 take 1 tablet by mouth twice daily as needed Ondansetron 4 mg tablet,disintegrat ing Active 4 MG PO Twice daily as needed July 05, 2024 12:00am Start: 05-25-2024 take 1 tablet by alexander th every eight hours as needed for nausea ondansetron 4 mg Dis Tab 4 mg = 1 tab(s), Oral, q8hr, PRN Nausea/Vomiting, Refills(s) 0 Start Date: 05/25/24 Status: Ordered potassium chloride 20 meq extended release oral tablet (1 source) Start: 07-05-2024 take 1 tablet by mouth once daily Potassium Chloride 20 mEq tablet extended release Active 20 MEQ PO daily July 05, 2024 12:00am predniSONE 10 mg oral tablet (1 source) Start: 08-03-2024 Prednisone 10 mg tablet Active 10 MG PO As Directed August 03, 2024 12:00am see taper instructions prochlorperazine 10 mg oral tablet (2 sources) Phenothiazine Start: 08-03-2024 take 1 tablet by mouth twice daily as needed Prochlorperazine Maleate (Compazine) 10 mg tablet Active 10 MG PO Twice daily as needed August 03, 2024 12:00am Start: 04-20-2024 Problems Problem Classification Problem Date Documented Date Episodic/Chronic Acute and unspecified renal failure (3 sources) Acute renal failure syndrome; Translations: [Acute kidney failure, unspecified] 07-05-2024 Episodic Cancer of bronchus; lung (7 sources) Malignant neoplasm of unspecified part of unspecified bronchus or lung; Translations: [Malignant neoplasm of upper lobe, bronchus or lung] Onset: 04-06-2024 Chronic Coagulation and hemorrhagic disorders (1 source) Acquired thrombocytopenia 05-18-2024 Chronic Diseases of white blood cells (1 source) Neutropenia 05-18-2024 Chronic Fluid and electrolyte disorders (3 sources) Hypokalemia; Translations: [Hypokalemia] 07-05-2024 Episodic Lymphadenitis (2 sources) Localized enlarged lymph nodes; [...] (1 source) Secondary malignant neoplasm of bone 05-18-2024 Chronic Superficial injury; contusion (4 sources) Contusion of left knee, sequela; Translations: [CONTUSION OF LEFT KNEE SEQUELA] Onset: 08-08-2021 Episodic Results Test Name Value Interpretation Reference Range Facility Urine Cultureon 07-17-2024 Bacteria identified Cx Nom (U) No Growth 2 Days PERFORMED BY: [place] [address] PATHOLOGIST WELT DRAWER ROM GARCIA M.D. Normal [facility] Comment on above: Performed By: #### C UU #### [address] Urine cultureOrdered By: Rajat Chester on 07-17-2024 Bacteria identified Cx Nom (U) Urine culture [facility] Ambulatory Visit Summaryon 1 Ambulatory Visit Summary Ambulatory Visit Summary ISELA DE LA ROSA :1955 Visit Date:05/25/2024 Ambulatory Visit Instructions Your Care Team Attending Physician - RIA BAILEY, Bhupendra Edwards Primary Care Physician - Brenda Baker MD This Is Your Medications List Contact prescribing [...] you for choosing us for your care. [facility] 04-06-2024 - Attestation signed by Rom Melton MD at 04/06/2024 11:16 AM Re-explained the procedure to the patient along with the associated risk of pneumothorax, bleeding, hypoxia, and respiratory failure. Patient is agreeable and will proceed with the scheduled bronchoscopy and EBUS TBNA Rom Melton MD Interventional Pulmonary Medicine Pulmonary and Critical Care Medicine [facility] History Of Present Illness 68 years old lifelong non-smoker female who has been referred to us by Dr. Chester for EBUS due to the need for more tissue samples. Patient has had no past medical history, August she had a COVID since then she [...] will be sent to Dr. Nemo Rojas [facility] NON-BLOOD BANK ORDER CONTROL CLERK CYTOLOGY - CELLULAR EXAMon 04-06-2024 LAB AP ADDENDUM 1 [facility] Comment on above: Result Comment: This case ([id number]) was sent to [facility] for the [employer] Tissue Next and PDL1 22C3 assays. The results read as follows: Detected Alterations and Biomarkers with Associated Treatment Options or Clinical Trials TP53: I195T RAF1: P261R Additional Biomarkers Tumor Mutational Draper (TMB): 4.0 mut/Mb MSI Status: Stable PD-L1 [...] sensitivity of the TissueNext test. See separate Cove[facility] 360 report for a complete description with interpretive content and potential clinical trials. Addendum electronically signed by Linnea Palumbo MD on 2024 at 9:29 AM Performed By: #### L AB13 ####[facility] ([facility])[address] [place] [address] LAB AP CASE REPORT Normal [facility] Comment on above: Result Comment: Non- gynecologic Cytology Case: [id number] Authorizing Provider: Rom Melton MD Collected: 04/06/2024 7345 Ordering Location: [facility] Main Operating Room Received: 04/06/2024 1427 Pathologist: Linnea Palumbo MD Specimen: Lymph Node Station 4R Performed By: #### L AB13 ####[facility] ([facility])[address] [place] [address] LAB AP CLINICAL INFORMATION [facility] Comment on above: Result Comment: Hist ory of adenocarcinoma of the right upper lobe, molecular testing requested Performed By: #### L AB13 ####[facility] ([facility])[address] [place] [address] LAB AP DIAGNOSIS COMMENT There is a moderate amount of tumor cells present in the cell block for additional studies, if clinically indicated. [facility] Comment on above: Performed By: #### L AB13 ####[facility] ([facility])[address] [place] [address] LAB AP GROSS DESCRIPTION [facility] Comment on above: Result Comment: 2 ai r-dried slides, 2 alcohol-fixed slides, 30 mL CytoLyt with hazy, red fluid and clots Performed By: #### L AB13 ####[facility] ([facility])[address] [place] [address] LAB AP INTRAOPERATIVE CONSULTATION [facility] Comment on above: Result Comment: A. L [facility] Node Station 4R. Rapid on-site evaluation was [...] material submitted.* Performed By: #### L AB13 ####[facility] ([facility])[address] [place] [address] LAB AP MICROSCOPIC DESCRIPTION A. Satisfactory for evaluation. Examination of the prepared smears and cell block reveals numerous tumor cells arranged in clusters and as single cells with finely vacuolated cytoplasm, high n/c ratio, and enlarged nuclei with irregular chromatin and prominent nucleoli. [facility] Comment on above: Performed By: #### L AB13 ####[facility] ([facility])[address] [place] [address] LAB AP REPORT FINAL DIAGNOSIS NARRATIVE [facility] Comment on above: Result Comment: Stewart. Sravani ymph node, station 4R, EBUS-guided fine needle aspiration: - Metastatic adenocarcinoma. Performed By: #### L AB13 ####[facility] ([facility])[address] [place] [address] NURSNOTEon 04-06-2024 NURSNOTE Discharge instructions reviewed with patient sister at bedside. All questions answered at this time Cass Lucero SUBSTATION INSPECTOR [facility] NURSNOTE No chest xray needed post op at this time per Dr. Linh Lucero SUBSTATION INSPECTOR [facility] POCT GLUCOSE METER UNSOLICIT ED RESULTSon 04-06-2024 Glucose [Mass/Vol] 104 mg/dL Normal 70-105 [facility] Comment on above: Order Comment: Waive d Testing in the ED is performed under the ED CLIA certificate #[id number]. Result Comment: ngro rodriguez Performed By: #### L [id number] #### [facility] ([facility]) [address] [place] [address] Prep for Procedureon 024 Prep for Procedure [id number] Jud,Isela 1955 F Date Provider Department Center 04/04/2024 ROM HARVEY [facility] No family history on file [facility] Abstracton 04-03-2024 Abstract [id number] Jud,Isela 1955 F Date Provider Department [place] 04/03/2024 ROM HARVEY [facility] No family history on file [facility] Orders Onlyon 04-03-2024 Orders Only [id number] JudIsela 1955 F Date Provider Department [place] 04/03/2024 ROM HARVEY [facility] No family history on file [facility] Umer 02-15-2024 L Specimen: [id number] Received: 02/16/24 Status: PEGGY Req Num: [id number] Spec Type: Surgical Subm Dr: Vj Glass DO Tissues: A Lung - Transbroncial Biopsy (RT UPPER LOBE MASS BX) Procedures: HE/2, Gross/Micro L4, CK5 6, CK20, CK 7, NAPSIN A, TTF1, IHC First AB, IHC Add AB/5, p40 Age/ Patient Sex Location Account Attending Physician Isela De La Rosa 68/F LABELL [id number] Vj Glass DO SPEC NUM: [id number] RECD: 02/16/24 STATUS: PEGGY REQ NUM: [id number] KIMBERLYN: 02/15/[address]: Vj Glass DO ENTERED: 02/16/24 [facility] DR: Nadeem Nails SPEC TYPE: Surgical DEPT: DENISSE [facility]HRIES ORDERED: HE/2, Gross/Micro L4, CK5 6, CK20, [...] adenocarcinoma. Clinical correlation is required. -------- Specimen: [id number] Received: 02/16/24 Status: PEGGY Abreu Num: [id number] Spec Type: Surgical Subm Dr: Vj Glass DO Tissues: A Lung - Transbroncial Biopsy (RT UPPER LOBE MASS BX) Procedures: HE/2, Gross/Micro L4, CK5 6, CK20, CK 7, NAPSIN A, TTF1, IHC First AB, IHC Add AB/5, p40 -------- Patient: Isela De La Rosa [id number] (Continued) -------- Specimen: [id number] Received: 02/16/24 (Continued) Signed (signature on file) Rom Garcia MD 02/23/24 6018 -------- Specimen: [id number] Received: 02/16/24 Status: PEGGY Abreu Num: [id number] Spec Type: Surgical Subm Dr: Vj Glass DO Tissues: A Lung - Transbroncial Biopsy (RT UPPER LOBE MASS BX) Procedures: HE/2, Gross/Micro L4, CK5 6, CK20, CK 7, NAPSIN A, TTF1, IHC First AB, IHC Add AB/5, p40 -------- Patient: JudIsela [id number] (Continued) -------- Specimen: [id number] Received: 02/16/24 (Continued) Clinical Information Abnormal bronchial mucosa of the right upper lobe Gross Description Received in formalin labeled with the patient's name, date of and right upper lobe mass biopsy are 3 delicate meeks tissue fragments ranging from 0.4 x 0.1 x 0.1 cm to 0.3 x 0.1 x 0.1 cm, entirely submitted in A1. CPT Codes 58189 01495 [id number] -------- -------- Specimen: [id number] Received: 02/16/24 Status: PEGGY Taylorvalerie Num: [id number] Spec Type: Surgical Subm Dr: Vj Glass DO Tissues: A Lung - Transbroncial Biopsy (RT UPPER LOBE MASS BX) Procedures: HE/2, Gross/Micro L4, CK5 6, CK20, CK 7, NAPSIN A, TTF1, IHC First AB, IHC Add AB/5, p40 -------- Patient: Isela De La Rosa [id number] (Continued) -------- Signed (signature on file) Rom Garcia MD 02/23/24 6216 [facility] L Specimen: [id number] Received: 02/16/24 Status: PEGGY Taylorvalerie Num: [id number] Spec Type: Cytology Subm Dr: Vj Glass DO Tissues: A [facility] Procedures: HE/2, Gross/Micro L4, Cyto Prepstain, PAPSTN Age/ Patient Sex Location Account Attending Physician Isela De La Rosa 68/F LABELL [id number] Vj Glass DO SPEC NUM: [id number] RECD: 02/16/24 STATUS: KERIOswaldo ABREU NUM: [id number] KIMBERLYN: 02/15/[address]: Vj Glass DO ENTERED: 02/16/[address]: Nadeem Nails SPEC TYPE: Cytology DEPT: [facility] ENTERED BY: [id number] RECV BY: [id number] ORDERED: HE/2, Gross/Micro L4, Cyto Prepstain, PAPSTN ORDERED: HE/2, Gross/Micro L4, Cyto Prepstain, PAPSTN Pathological Diagnosis Right lung, bronchial washings: Negative for malignant cells. Clinical Information Right lung mass Gross Description Received fresh is 8 ml red cloudy unfixed fluid for cytology said to have been obtained as Right upper lobe lavage. ThinPrep and cell block preparations are prepared for microscopic examination.( SD/de) CPT Codes 98126 -------- -------- Specimen: [id number] Received: 02/16/24 Status: KERIOswaldo Abreu Num: [id number] Spec Type: Cytology Subm Dr: Vj Glass DO Tissues: A [facility] ([facility]) Procedures: HE/2, Gross/Micro L4, Cyto Prepstain, PAPSTN -------- Patient: Isela De La Rosa [id number] (Continued) -------- Signed (signature on file) Rom Garcia MD 02/23/24 1536 Normal [facility] NM STRESS/REST MULTIon 06-10 NM STRESS/REST MULTI Patient: ISELA DE LA ROSA Exam Date: 06/10/2021 : 1955 Gender:F Ordering : DR BRENDA BAKER . Admission #: [id number] Family : Order #: [id number] CLICK HERE TO VIEW EXAM RADIOLOGY REPORT [...] Maravilla MD on 06/10/2021 at 12:59 Normal [facility] Vital Signs Date Time Vital Sign Value Performing Clinician Faci lity 08-03-2024 15:05-0500 Body height 157.48 cm Kristi Chester MD Work Phone: [facility] 08-03-2024 15:05-0500 Body mass index (BMI) [Ratio] 24.5 kg/m2 Kristi Chester MD Work Phone: [facility] 08-03-2024 15:05-0500 Body weight 60.78 kg Kristi Chester MD Work Phone: [facility] 08-03-2024 15:05-0500 Diastolic blood pressure 64 mm[Hg] Kristi Chester MD Work Phone: [facility] 08-03-2024 15:05-0500 Systolic blood pressure 116 mm[Hg] Kristi Chester MD Work Phone: [facility] 07-05-2024 09:30-0500 Body height 157.48 cm Kristi Chester MD Work Phone: [facility] 07-05-2024 09:30-0500 Body mass index (BMI) [Ratio] 25 kg/m2 Kristi Chester MD Work Phone: [facility] 07-05-2024 09:30-0500 Body temperature 97.4 [degF] Kristi Chester MD Work Phone: [facility] 07-05-2024 09:30-0500 Body weight 61.91 kg Kristi Chester MD Work Phone: [facility] 07-05-2024 09:30-0500 Diastolic blood pressure 85 mm[Hg] Kristi Chester MD Work Phone: [facility] 07-05-2024 09:30-0500 Heart rate 77 /min Kristi Chester MD Work Phone: [facility] 07-05-2024 09:30-0500 Respiratory rate 16 /min Kristi Chester MD Work Phone: [facility] 07-05-2024 09:30-0500 SaO2% (BldA) [Mass fraction] 99 % Kristi Chester MD Work Phone: [facility] 07-05-2024 09:30-0500 Systolic blood pressure 130 mm[Hg] Kristi Chester MD Work Phone: [facility] 05-25-2024 10:41-0400 Blood Pressure Location Bhupendra ROLLINS [facility] [place] 05-25-2024 10:41-0400 Diastolic blood pressure 93 mm[Hg] Bhupendra ROLLINS [facility] [place] 05-25-2024 10:41-0400 Heart rate 81 /min Bhupendra ROLLINS [facility] 05-25-2024 10:41-0400 Respiratory rate 16 /min Bhupendra ROLLINS [facility] 05-25-2024 10:41-0400 Systolic blood pressure 165 mm[Hg] Bhupendra ROLLINS [facility] [place] Encounters Encounter Date Encounter Type Care Provider Facility Start: 08-03-2024 End: 08-03-2024 ambulatory Kristi Chester MD Work Phone: [facility] Work Phone: Start: 08-03-2024 End: 08-03-2024 Patient encounter procedure Kristi Chester MD Work Phone: [facility] Work Phone: Start: 07-17-2024 End: 07-17-2024 ambulatory Kristi Chester Facility:[facility] Start: 07-17-2024 End: 07-17-2024 Departed Referred Kristi Chester MD Work Phone: [facility] Start: 07-05-2024 End: 07-05-2024 Patient encounter procedure Kristi Chester MD Work Phone: [facility] Work Phone: Start: 05-25-2024 End: 05-25-2024 ambulatory Bhupendra ROLLINS Facility:[facility] Start: 05-25-2024 End: 05-25-2024 Patient encounter procedure Bhupendra ROLLINS [facility] [place] Start: 05-16-2024 ambulatory Bhupendra NILL Facility:[facility] Start: 04-06-2024 End: 04-06-[address] [facility] Start: 04-03-2024 End: 04-03-[address] [facility] Start: 03-15-2024 End: 03-15-2024 Chart abstracting Andreas Pascual MD Work Phone: Hematology/Oncology Start: 02-15-2024 End: 02-15-2024 ambulatory Vj [facility] Work Phone: Start: 02-15-2024 End: 02-15-2024 Departed Referred DO Vj [facility] Work Phone: [facility] Start: 08-08-2021 End: 08-09-[address] BRENDA BAKER Facility:[facility] Start: 06-10-2021 End: 06-11-[address] BRENDA BAKER Facility:[facility] Procedures Date Procedure Procedure Detail Performing Clinician Start: 07-17-2024 Urine culture Kristi richards MD Work Phone: Start: 04-06-2024 Bronchoscopy Bhupendra DE [place] LL section Bhupendra Lassiter section Bhupendra CHAPMAN L Nerve transposition Bhupendra ROLLINS Repair of inguinal hernia Jyothi ROLLINS Total abdominal hysterectomy with bilateral salpingo-oophorectomy Bhupendra ROLLINS Plan of Treatment Date Care Activity Detail Author Start: 03-26-2024 Influenza vaccination Influenza Vaccine (#1) [facility] Start: 07-26-2023 Advance Directive Discussion Advance Directive Discussion [facility] Start: 03-26-2023 Covid-19 Vaccine ( season) Covid-19 Vaccine ( season) [facility] Start: 2021 Pneumococcal Vaccine: 65+ (1 of 1 - PCV) Pneumococcal Vaccine: 65+ (1 of 1 - PCV) [facility] Start: 2021 Screening for osteoporosis Bone Density Screening [facility] Start: 2016 RSV Vaccine (1 - 1-dose 60+ series) RSV Vaccine (1 - 1-dose 60+ series) [facility] Start: 2006 Shingrix Vaccine (1 of 2) Shingrix Vaccine (1 of 2) [facility] Start: 2001 Diabetes Screening Diabetes Screening [facility] Start: 2001 Lipid panel Lipid Screening [facility] Start: 2001 Screening for malignant neoplasm of colon [facility] Start: 1996 Screening for malignant neoplasm of breast Mammogram Screening [facility] Start: 1975 Urine microalbumin profile DTaP,Tdap,Td Vaccine (1 - Tdap) [facility] Start: 1974 Anxiety Screening Anxiety Screening [facility] Start: 1974 Depression Screening Depression Screening [facility] Start: 1974 Hepatitis C screening Hepatitis C Screening [facility] aPTT in Platelet poo r plasma by Coagulation assay [facility] CT guided biopsy [facility] Immunizations Immunization Date Immunization Notes Care Provider Fa cility 09-18-2020 SARS-CoV-2 (COVID-19 ) mRNA BNT-162b2 vax Bhupendra SmartKemL [facility] [place] 08-28-2020 SARS-CoV-2 (COVID-19 ) mRNA BNT-162b2 vax Bhupendra SmartKemL [facility] Payers Date Payer Category Payer Self-pay 2022 Medicare HU[employer]NA MEDICARE HU[employer]NA GOLD PLUS [id number] 2022-Present [id number] [place] [id number] O [id number] 2022 Medicare [id number] 1958 Unknown [id number] 1955 Unknown [id number] 1955 Unknown [id number] 1955 Unknown [id number] Private Health Insurance [employer] Insurance [facility] [id number] Unknown [id number] Social History Date Type Detail Facility Tobacco smoking status NHIS Unknown if ever smoked [facility] Work Phone: Start: 1955 Sex Assigned At Female [facility] Tobacco smoking status NHIS Tobacco smoking consumption unknown [facility] Start: 1955 Sex assigned at Not on file [facility] Gender identity Not on file [facility] Start: 05-25-2024 End: 07-05-2024 Tobacco smoking status Never smoked tobacco (finding) [facility] Tobacco smoking status Never [facility] Start: 08-03-2024 Sex Female (finding) [facility] Functional Status Date Assessment Result Facility 05-25-2024 Functional Status N/A [facility] Clinical Notes 08-08-2021 to 07-05-2024 Note Date & Type Note Facility 07-05-2024 Evaluation note Diagnosis Onset Date Resolution LEIDA (acute kidney injury) acute July 05, 024 9:28am Hypokalemia acute June 9:28am Lung cancer acute June 9:28am LEIDA (acute kidney injury) acute August 03 3:15pm Hypokalemia acute August 03, 2024 3:15pm Lung cancer acute August 03, 2024 3:15pm [facility] Work Phone: 1(555) 488-444010-31-2024 NoteGeneral Surgery Office/Clinic Note Chief Complaint consultation for port HPI Staff 69 year old female presents on consultation from Dr. Chester for port placement. Patient with adenocarcinoma of right lung. History of Present Illness 69 yo female with h/o adenocarcinoma of right upper lobe of lung, referred for gtuwev-l-unns insertion; patient has already begun chemotherapy via [...] swallowing difficulties, no hearing loss, no ear infection(s),no nose bleeds. Cardiovascular: normal blood pressure, no [...] upper lobe, right bronchus or lung) plan [id number] insertion under anesthesia at [facility], informed consent obtained. Ancef 2 gms [...] Recorded SARS-CoV-2 (COVID-19) mRNA BNT-162b2 vax 08/28/2020 RecordedChildren'S Hospital Of ColumbusComment on above:Result Comment: Electronically Signed By: RIA BAILEY, Bhupendra King\Date and Time Signed: 05/25/24 16:13 [id number] NotePatient: Isela De La Rosa Procedure Summary Date: 04/06/24 Room / Location: [facility] Main Operating Room Anesthesia Start: 1126 [...] were no known notable events for this encounter.[facility]09-12-2024 NoteAirway Date/Time: 04/06/2024 11:32 AM Urgency: elective Airway not difficult General Information and Staff Patient location during procedure: OR Anesthesiologist: Kevon Lamar MD Resident/CLOTH TRIMMER HAND/CAA: Ananda Villatoro MD Performed: resident/CLOTH TRIMMER HAND/CAA Indications and Patient Condition Indications for airway [...] (cm): 22 Number of attempts at approach: [facility] NotePatient: Isela Jud Procedure Summary Date: 04/06/24 Room / Location: [facility] Main Operating Room Anesthesia Start: 1126 Anesthesia Stop: 1214 Procedure: BRONCHOSCOPY Diagnosis: Malignant neoplasm of lung, unspecified laterality, unspecified part of lung (CMS/HCC) Mediastinal adenopathy Scheduled Providers: Rom Melotn MD Responsible Provider: Kevon Lamar MD Anesthesia Type: general ASA Status: 2 Anesthesia Post Transport Note Transport to: PACU O2 Route: room air and face mask Oxygen Flow (L/min): 8 Patient Monitor: direct observation Transport: uneventful Patient condition is: stable Comments: Patient was able to respond and follow verbal commands throughout transport processParma Community General Hospital09-12-2024 NotePatient: Isela Jud Procedure Information Date/Time: 04/06/24 1130 Scheduled providers: Rom Melton MD Procedure: BRONCHOSCOPY Location: [facility] Main Operating Room Relevant Problems No [...] with 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 Additional Equipment RequestsParma Community General Hospital09-09-[address] Chester. Patient needs more tissue for molecular testing. EBUS order placedParma Community [facility] Hospital01-14-2022 NotePROCEDURE: XR KNEE LT 4V or > HISTORY: Contusion of left [...] Electronically authenticated by: CARIE VELÁZQUEZ Date: 2021-08-08 14:54[facility] No data available for this section [facility] [place] Evaluation noteNo assessment information available [facility] Work Phone: Hospital Discharge instructions No data available for this section [facility] [place] Progress note No data available for this section [facility] Summary Purpose Family History Relationship Condition Age at Onset Recorded Date/T lary father Alzheimer's dementia Unknown Advance Directives Advance Directive Response Recorded Date/ Time Advance Directives No May 18, 2024 9:00am Chief Complaint and Reason for Visit Chief Complaint Admit Date RENAL KEYTRUDA NEPHRITIS July 05, 2024 9:28am Unknown July 17, 2024 12:00pm RENAL F/U August 03, 2024 3: 15pm Reason for Visit Admit Date LEIDA (acute kidney injury) July 05, 2024 9:28am Hypokalemia July 05, 2024 9:28am Lung cancer July 05, 2024 9:28am LEIDA (acute kidney injury) August 03, 2 025 3:15pm Hypokalemia August 03, 2024 3: 15pm Lung cancer August 03, 2024 3: 15pm Additional Source Comments INFORMATION SOURCE (unrecogn ized section and content) DATE CREATED AUTHOR 08/13/2021 [facility] DATE CREATED AUTHOR AUTHOR'S ORGANIZ ATION 2024 [facility] DATE CREATED AUTHOR AUTHOR'S ORGANIZ ATION 05/26/2024 [facility] DATE CREATED AUTHOR AUTHOR'S ORGANIZ ATION 07/20/2024 [facility] Care Teams (unrecognized sec tion and content) Team Status: Inactive Member Role Status Dates Vj Glass Nicolette MORLEY , DO Attending Provider Active Start: February 15, 2024 End: February 15, 2024 Build Technician Relationship Specialty Start Date End Date Brenda Baker MD [address] [facility] [place] [address] PCP - General Family Medicine 03/02/24 Team Status: Active Member Role Status Dates Brenda Baker MD Primary Care Provider Active Team Status: Inactive Member Role Status Dates Daniella Diego MD Attending Provider Active Start : July 05, 2024 End: July 05, 2024 NON STAFF Primary Care Provider Active Start: July 05, 2024 End: July 05, 2024 Team Status: Inactive Member Role Status Dates Kristi Chester MD Attending Provider Active St art: July 17, 2024 End: July 17, 2024 Team Status: Inactive Member Role Status Dates Daniella Diego MD Attending Provider Active Start : August 03, 2024 End: August 03, 2024 Brenda Baker MD Primary Care Provider Active Start: August 03, 2024 End: August 03, 2024 Goals (unrecognized section and content) Goals may be documented in a n alternate section No data available for this sectionGoals may be documented in an alternate section Source Comments (unrecognize d section and content) In the event this informatio n is protected by the Federal Confidentiality of Alcohol and Drug Abuse Patient Records regulations: The Federal rules restrict any use of the information to criminally investigate or prosecute any alcohol or drug abuse patient.[facility] FOR RECORDS PERTAINING TO PATIENTS WHO [...] BE BASED ON THE PRIMARY CLINICAL RECORDS. [employer] [facility]. provides no warranty or guarantee of the accuracy or completeness of information in this document.
== END 2024-08-10 10:15 | disposition home or self-care (01) ==
LOC: PST 10:14
PROVIDERS: PCP Family Medicine; Visit Provider Surgery
DX: Z01.818 Encounter for other preprocedural examination (principal); C34.10 Malignant neoplasm of upper lobe, unspecified bronchus or lung

== ENCOUNTER 2024-08-16 09:40 | Day surgery (SDC) | payer MEDICARE, SELFPAY ==
[2024-08-16] VITALS (8 sets, daily range): BP systolic 138–173; BP diastolic 77–101; PULSE 77–96; TEMP 36.3–36.5; O2SAT 94–97; BMI 24.2
--- NOTE | 2024-08-16 | OP_ITS ---
OPERATION DATE: 08/16/2024 PREOPERATIVE DIAGNOSIS: Lung cancer, need for secure central access port immunotherapy. POSTOPERATIVE DIAGNOSIS: Lung cancer, need for secure central access port immunotherapy. PROCEDURE: Right external jugular Infusaport insertion. SURGEON: Bhupendra Martines M.D. ANESTHESIA: General with laryngeal mask area, as well as local with 0.5% Marcaine plain. ESTIMATED BLOOD LOSS: Less than 10 mL. INDICATIONS AND CONSENT: Patient is a 69-year-old female with right lung cancer, who presents for Infusaport insertion for immunotherapy. Indications, risks, benefits, alternatives of proceeding with Infusaport insertion were explained extensively to the patient, including risks of bleeding, infection, scarring, catheter fracture, pneumothorax, need for further surgery or catheter removal. All of her questions were answered. Informed consent was obtained. PROCEDURE: Patient brought to the operating room, placed in the supine position. General anesthesia was induced. She was then placed in the Trendelenburg position. She was prepped and draped in the usual sterile fashion. A right neck incision was made parallel to the long axis of the right external jugular vein, which was readily visible, carried down through the platysma using sharp dissection as well as electrocautery. The external jugular was dissected free and isolated between two 2-0 Vicryl ties. The cephalad tie was tied down. A venotomy was then made with #11 blade. The pre-flushed catheter was then inserted under fluoroscopic guidance, adjusted so that it was in good position in the distal SVC at the level of the larisa. Distal tie was then tied down. The catheter aspirated blood easily and was flushed with saline. Attention was then turned to the chest wall where an area below the clavicle and to the right of the sternum was then chosen under the skin crease. An oblique incision was made. Pocket was then created above the pectoralis fascia. The catheter was then tunneled to the chest wall incision. Position of the catheter was then checked once again. It was noted to be still in good position in the distal SVC. There was no evidence of ectopy. The catheter was trimmed and attached to the pre-flushed port. Port aspirated blood easily, was then flushed with heparinized saline. The port was then secured to the pectoralis fascia using 2-0 Prolene sutures. There was good hemostasis. The subcutaneous tissues were infiltrated with 0.5% Marcaine. The incision was then closed in layers with interrupted 3-0 Monocryl suture and 4-0 Monocryl subcuticular sutures and skin glue. Sterile pressure dressings were applied. Sponge and needle counts were correct x3 per nursing personnel. Patient tolerated procedure well, was sent to recovery room in good condition, where a portable chest x-ray is pending at the time of this dictation. CC: Marck Mohr M.D. DANA
--- NOTE | 2024-08-16 09:56 | XR_ITS ---
The [address] [address] Patient Name: JASON DE LA ROSA MRN: [id number] date: 1955 Sex: F Assigned Patient Location: [facility] Current Patient Location: [facility] Accession/Order Number: [id number] Exam Date: 08/16/2024 10:02 Report Date: 08/16/2024 10:18 At the request of: MITZI IRWIN Procedure: XR chest 1V EXAM: XR chest 1V HISTORY: verify pic placement COMPARISON: Chest radiograph dated 04/20/2024 and PET/CT examination dated 07/10/2024. TECHNIQUE: AP erect portable chest radiograph performed. FINDINGS: Left PICC with the distal tip extending into the superior vena cava. The heart size is within normal limits. Redemonstration of a right upper lobe mass and volume loss. There is no pleural effusion or pulmonary vascular congestion. There is no pneumothorax or acute osseous abnormality. XR/XR chest 1V IMPRESSION: Left PICC with the distal tip extending into the superior vena cava. Redemonstration of a right upper lobe mass and volume loss. Electronically authenticated by: CELINA ALLRED Date: 08/16/2024 10:18
[2024-08-16] MEDS: LACTATED RINGER'S SOLUTION 1,000 ML 50 ML IV (10:32)
[2024-08-16] MEDS: CEFAZOLIN SODIUM 2 GM/50 ML D5W PREMIX IV (11:54)
[2024-08-16] MEDS: HEPARIN SODIUM (PORCINE) PF LOCK FLUSH 500 UNIT/5 ML SYRINGE 1000 UNIT INJ (12:41)
[2024-08-16] MEDS: BUPIVACAINE HCL 0.25% PF 25 MG/10 ML VIAL 8 ML INJ (12:56)
--- NOTE | 2024-08-16 13:10 | XR_ITS ---
The [address] [address] Patient Name: JASON DE LA ROSA MRN: [id number] date: 1955 Sex: F Assigned Patient [facility]: [facility] [place] Current Patient Location: [facility] Accession/Order Number: [id number] Exam Date: 08/16/2024 13:25 Report Date: 08/16/2024 13:59 At the request of: JUDITH ROLLINS Procedure: XR chest 1V EXAM: XR chest 1V at 1317 hours HISTORY: s/p port placement COMPARISON: 08/16/2024 TECHNIQUE: AP upright portable chest x-ray FINDINGS: There has been interval placement of a right-sided infusion catheter with the tip in the superior vena cava. The left-sided PICC line remains in place. The heart is not enlarged and the vasculature is not distended. Opacity persist in the right upper lung compatible with a mass, and this is unchanged. Interval development of atelectasis or infiltrate in the infrahilar region on the left. There is no evidence of an effusion or pneumothorax. The osseous structures are grossly intact. XR/XR chest 1V IMPRESSION: Interval placement of the infusion catheter on the right. The PICC line remains in place. The opacity indicating a mass at the right apex remains unchanged. There is no evidence of a pneumothorax. Interval development of atelectasis or infiltrate at the left lung base in the infrahilar region is noted. Electronically authenticated by: CELINA ZHENG Date: 08/16/2024 13:59
== END 2024-08-16 14:14 | disposition home or self-care (01) ==
PROVIDERS: PCP Family Medicine; Visit Provider Surgery
PROC: (CPT 36561; principal; 2024-08-16 10:45)
DX: C34.10 Malignant neoplasm of upper lobe, unspecified bronchus or lung (principal); Z90.710 Acquired absence of both cervix and uterus; Z79.60 Long term (current) use of unspecified immunomodulators and immunosuppressants; E03.9 Hypothyroidism, unspecified; D69.6 Thrombocytopenia, unspecified
CPT/HCPCS: 36561; 71045; 76000; C1788; J0665; J0690; J1642; J2250; J2371; J2405; J2704; J3010

== ENCOUNTER 2024-08-19 10:37 | Emergency (ER) | payer MEDICARE, SELFPAY ==
--- OUTSIDE RECORDS SUMMARY | 2024-08-19 10:43 | XMS_ITS | CCD ---
Author Organization [facility] Care Team Providers Care Exhibitor Sales Name Role Phone DR BRENDA BAKER Primary [...] Admitting Unavailable Kristi Chester MD Attending Provider [phone] Allergies Allergy Classification Reported Allergen(s) Allergy Type Date of Onset Reaction(s) Facility (1 source) ALLERGIES NOT ON FILE; Translations: [ALLERGIES NOT ON FILE] Propensity to adverse reactions (disorder) [facility] Repository (1 source) No Known Medication Allergies; Translations: [No Known Medication Allergies] Propensity to adverse reactions (disorder) [facility] Repository Medications Current Medications Medication Drug [...] (U) No Growth 2 Days PERFORMED BY: [place] [address] PATHOLOGIST LADLE CLEANER ROM GARCIA M.D. Normal [facility] Comment on above: Performed By: #### C UU #### [address] Urine cultureOrdered By: Rajat Chester on 07-17-2024 Bacteria identified Cx Nom (U) Urine culture [facility] Ambulatory Visit Summaryon 1 Ambulatory [...] you for choosing us for your care. [facility] 04-06-2024 - Attestation signed by Rom Melton MD at 04/06/2024 11:16 AM Re-explained the procedure to the patient along with the associated risk of pneumothorax, bleeding, hypoxia, and respiratory failure. Patient is agreeable and will proceed with the scheduled bronchoscopy and EBUS TBNA Rom Melton MD Interventional Pulmonary Medicine Pulmonary and Critical Care Medicine [facility] History Of Present Illness [...] will be sent to Dr. Nemo Rojas [facility] NON-CUT OUT AND MARKING MACHINE OPERATOR CYTOLOGY - CELLULAR EXAMon 04-06-2024 LAB AP ADDENDUM 1 [place] Comment on above: Result Comment: This case ([id number]) was sent to [employer] for the [employer] Tissue Next and PDL1 22C3 assays. The results read as follows: Detected Alterations and Biomarkers with Associated Treatment Options or Clinical Trials TP53: I195T RAF1: P261R Additional Biomarkers Tumor Mutational [place] (TMB): 4.0 mut/Mb MSI Status: Stable PD-L1 [...] sensitivity of the TissueNext test. See separate Nubimetrics 360 report for a complete description with interpretive content and potential clinical trials. Addendum electronically signed by Linnea Palumbo MD on 2024 at 9:29 AM Performed By: #### L AB13 ####[facility] (BEAKER)[address] [place] [address] LAB AP CASE REPORT Normal [facility] Comment on above: Result Comment: Non- gynecologic Cytology Case: [id number] Authorizing Provider: Rom Melton MD Collected: 04/06/2024 3301 Ordering Location: [facility] Main Operating Room Received: 04/06/2024 1424 Pathologist: Linnea Palumbo MD Specimen: Lymph Node Station 4R Performed By: #### L AB13 ####[facility] (BEAKER)[address] [place] [address] LAB AP CLINICAL INFORMATION [facility] Comment on above: Result Comment: Hist ory of adenocarcinoma of the right upper lobe, molecular testing requested Performed By: #### L AB13 ####[facility] ([facility])[address] [place] [address] LAB AP DIAGNOSIS COMMENT There is a moderate amount of tumor cells present in the cell block for additional studies, if clinically indicated. [facility] Comment on above: Performed By: #### L AB13 ####[facility] ([facility])[address] [place] [address] LAB AP GROSS DESCRIPTION [facility] Comment on above: Result Comment: 2 ai r-dried slides, 2 alcohol-fixed slides, 30 mL CytoLyt with hazy, red fluid and clots Performed By: #### L AB13 ####[facility] [[email or web address] ([facility])[address] [place] [address] LAB AP INTRAOPERATIVE CONSULTATION [facility] Comment on above: Result Comment: A. [facility] [place] Node Station 4R. Rapid on-site evaluation was [...] submitted.* Performed By: #### L AB13 ####[facility] ([facility])[address] [place] [address] LAB AP MICROSCOPIC DESCRIPTION A. Satisfactory for evaluation. Examination of the prepared smears and cell block reveals numerous tumor cells arranged in clusters and as single cells with finely vacuolated cytoplasm, high n/c ratio, and enlarged nuclei with irregular chromatin and prominent nucleoli. [facility] Comment on above: Performed By: #### L AB13 ####[facility] ([facility])[address] [place] [address] LAB AP REPORT FINAL DIAGNOSIS NARRATIVE [facility] Comment on above: Result Comment: Stewart. Sravani ymph node, station 4R, EBUS-guided fine needle aspiration: - Metastatic adenocarcinoma. Performed By: #### L [id number] ####[facility] ([facility])[address] [place] [address] NURSNOTEon 04-06-2024 NURSNOTE Discharge instructions reviewed with patient sister at bedside. All questions answered at this time Cass Lucero BALER OPERATOR [facility] NURSNOTE No chest xray needed post op at this time per Dr. Linh Lucero BALER OPERATOR [facility] POCT GLUCOSE METER UNSOLICIT ED RESULTSon 04-06-2024 Glucose [Mass/Vol] 104 mg/dL Normal 70-105 [facility] Comment on above: Order Comment: Waive d Testing in the ED is performed under the ED CLIA certificate #[id number]. Result Comment: ngro rodriguez Performed By: #### L [id number] #### [facility] ([facility]) [address] [place] [address] Prep for Procedureon 024 Prep for Procedure [id number] Jud,Isela 1955 F Date Provider Department Center 04/04/2024 ROM HARVEY [facility] No family history on file [facility] Abstracton 04-03-2024 Abstract [id number] Jud,Isela 1955 F Date Provider Department [place] 04/03/2024 ROM HARVEY [facility] No family history on file [facility] Orders Onlyon 04-03-2024 Orders Only [id number] JudIsela 1955 F Date Provider Department [place] 04/03/2024 ROM HARVEY [facility] No family history on file [facility] Umer 02-15-2024 L Specimen: [id number] Received: 02/16/24 Status: PEGGY Req Num: [id number] Spec Type: Surgical Subm Dr: Vj Glass DO Tissues: A Lung - Transbroncial Biopsy (RT UPPER LOBE MASS BX) Procedures: HE/2, Gross/Micro L4, CK5 6, CK20, CK 7, NAPSIN A, TTF1, IHC First AB, IHC Add AB/5, p40 Age/ Patient Sex Location Account Attending Physician Isela De La Rosa 68/F LABELL [id number] Vj Glass DO SPEC NUM: [id number] RECD: 02/16/24 STATUS: PEGGY REQ NUM: [id number] KIMBERLYN: 02/15/[address]: Vj Glass DO ENTERED: 02/16/[address] [facility] [address]: Nadeem Nails SPEC TYPE: Surgical DEPT: [...] adenocarcinoma. Clinical correlation is required. -------- Specimen: [id number] Received: 02/16/24 Status: PEGGY Abreu Num: [id number] Spec Type: Surgical Subm Dr: Vj Glass DO Tissues: A Lung - Transbroncial Biopsy (RT UPPER LOBE MASS BX) Procedures: HE/2, Gross/Micro L4, CK5 6, CK20, CK 7, NAPSIN A, TTF1, IHC First AB, IHC Add AB/5, p40 -------- Patient: Isela De La Rosa [id number] (Continued) -------- Specimen: [id number] Received: 02/16/24 (Continued) Signed (signature on file) Rom Garcia MD 02/23/24 8768 -------- Specimen: [id number] Received: 02/16/24 Status: PEGGY Abreu Num: [id number] Spec Type: Surgical Subm Dr: Vj Glass DO Tissues: A Lung - Transbroncial Biopsy (RT UPPER LOBE MASS BX) Procedures: HE/2, Gross/Micro L4, CK5 6, CK20, CK 7, NAPSIN A, TTF1, IHC First AB, IHC Add AB/5, p40 -------- Patient: JudIsela [id number] (Continued) -------- Specimen: [id number] Received: 02/16/24 (Continued) Clinical Information Abnormal bronchial mucosa of the right upper lobe Gross Description Received in formalin labeled with the patient's name, date of and right upper lobe mass biopsy are 3 delicate meeks tissue fragments ranging from 0.4 x 0.1 x 0.1 cm to 0.3 x 0.1 x 0.1 cm, entirely submitted in A1. CPT Codes 51755 [id number] [id number] -------- -------- Specimen: [id number] Received: 02/16/24 Status: PEGGY Taylorvalerie Num: [id number] Spec Type: Surgical Subm Dr: Vj Glass DO Tissues: A Lung - Transbroncial Biopsy (RT UPPER LOBE MASS BX) Procedures: HE/2, Gross/Micro L4, CK5 6, CK20, CK 7, NAPSIN A, TTF1, IHC First AB, IHC Add AB/5, p40 -------- Patient: Isela De La Rosa [id number] (Continued) -------- Signed (signature on file) Rom Garcia MD 02/23/24 4881 [facility] L Specimen: [id number] Received: 02/16/24 Status: PEGGY Taylorvalerie Num: [id number] Spec Type: Cytology Subm Dr: Vj Glass DO Tissues: A [facility] Procedures: HE/2, Gross/Micro L4, Cyto Prepstain, PAPSTN Age/ Patient Sex Location Account Attending Physician Isela De La Rosa 68/F LABELL [id number] Vj Glass DO SPEC NUM: [id number] RECD: 02/16/24 STATUS: KERIOswaldo ABREU NUM: [id number] KIMBERLYN: 02/15/[address]: Vj Glass DO ENTERED: 02/16/[address]: Nadeem Nails SPEC TYPE: Cytology DEPT: [facility] ENTERED BY: [id number] RECV BY: [id number] ORDERED: HE/2, Gross/Micro L4, Cyto Prepstain, PAPSTN ORDERED: HE/2, Gross/Micro L4, Cyto Prepstain, PAPSTN Pathological Diagnosis Right lung, bronchial washings: Negative for malignant cells. Clinical Information Right lung mass Gross Description Received fresh is 8 ml red cloudy unfixed fluid for cytology said to have been obtained as Right upper lobe lavage. ThinPrep and cell block preparations are prepared for microscopic examination.( ND/fl) CPT Codes 75856 -------- -------- Specimen: [id number] Received: 02/16/24 Status: KERIOswaldo Abreu Num: [id number] Spec Type: Cytology Subm Dr: Vj Glass DO Tissues: A [facility] ([facility]) Procedures: HE/2, Gross/Micro L4, Cyto Prepstain, PAPSTN -------- Patient: Isela De La Rosa [id number] (Continued) -------- Signed (signature on file) Rom Garcia MD 02/23/24 1536 Normal [facility] NM STRESS/REST MULTIon 06-10 NM STRESS/REST MULTI Patient: ISELA DE LA ROSA Exam Date: 06/10/2021 : 1955 Gender:F Ordering : DR BRENDA BAKER . Admission #: [id number] Family : Order #: [id number] CLICK HERE TO VIEW EXAM RADIOLOGY REPORT [...] Maravilla MD on 06/10/2021 at 12:59 Normal [facility] Vital Signs Date Time Vital Sign Value Performing Clinician Faci lity 08-03-2024 15:05-0500 Body height 157.48 cm Kristi Chester MD Work Phone: [facility] 08-03-2024 15:05-0500 Body mass index (BMI) [Ratio] 24.5 kg/m2 Kristi Chester MD Work Phone: [facility] 08-03-2024 15:05-0500 Body weight 60.78 kg Kristi Chester MD Work Phone: [facility] 08-03-2024 15:05-0500 Diastolic blood pressure 64 mm[Hg] Kristi Chester MD Work Phone: [facility] 08-03-2024 15:05-0500 Systolic blood pressure 116 mm[Hg] Kristi Chester MD Work Phone: [facility] 07-05-2024 09:30-0500 Body height 157.48 cm Kristi Chester MD Work Phone: [facility] 07-05-2024 09:30-0500 Body mass index (BMI) [Ratio] 25 kg/m2 Kristi Chester MD Work Phone: [facility] 07-05-2024 09:30-0500 Body temperature 97.4 [degF] Kristi Chester MD Work Phone: [facility] 07-05-2024 09:30-0500 Body weight 61.91 kg Kristi Chester MD Work Phone: [facility] 07-05-2024 09:30-0500 Diastolic blood pressure 85 mm[Hg] Kristi Chester MD Work Phone: [facility] 07-05-2024 09:30-0500 Heart rate 77 /min Kristi Chester MD Work Phone: [facility] 07-05-2024 09:30-0500 Respiratory rate 16 /min Kristi Chester MD Work Phone: [facility] 07-05-2024 09:30-0500 SaO2% (BldA) [Mass fraction] 99 % Kristi Chester MD Work Phone: [facility] 07-05-2024 09:30-0500 Systolic blood pressure 130 mm[Hg] Kristi Chester MD Work Phone: [facility] 05-25-2024 10:41-0400 Blood Pressure Location Bhupendra ROLLINS [facility] [place] 05-25-2024 10:41-0400 Diastolic blood pressure 93 mm[Hg] Bhupendra ROLLINS [facility] [place] 05-25-2024 10:41-0400 Heart rate 81 /min Bhupendra ROLLINS [facility] 05-25-2024 10:41-0400 Respiratory rate 16 /min Bhupendra ROLLINS [facility] 05-25-2024 10:41-0400 Systolic blood pressure 165 mm[Hg] Bhupendra ROLLINS [facility] [place] Encounters Encounter Date Encounter Type Care Provider Facility Start: 08-03-2024 End: 08-03-2024 ambulatory Kristi Chester MD Work Phone: [facility] Work Phone: Start: 08-03-2024 End: 08-03-2024 Patient encounter procedure Kristi Chester MD Work Phone: [facility] Work Phone: Start: 07-17-2024 End: 07-17-2024 ambulatory Kristi Chester Facility:[facility] Start: 07-17-2024 End: 07-17-2024 Departed Referred Kristi Chester MD Work Phone: [facility] Start: 07-05-2024 End: 07-05-2024 Patient encounter procedure Kristi Chester MD Work Phone: [facility] Work Phone: Start: 05-25-2024 End: 05-25-2024 ambulatory Bhupendra ROLLINS Facility:[facility] Start: 05-25-2024 End: 05-25-2024 Patient encounter procedure Bhupendra ROLLINS [facility] [place] Start: 05-16-2024 ambulatory Bhupendra NILL Facility:[facility] [place] Start: 04-06-2024 End: 04-06-2024 ambulatory [facility] Start: 04-03-2024 End: 04-03-2024 ambulatory [facility] Start: 03-15-2024 End: 03-15-2024 Chart abstracting Andreas Pascual MD Work Phone: Hematology/Oncology Start: 02-15-2024 End: 02-15-2024 ambulatory Vj [facility] Work Phone: Start: 02-15-2024 End: 02-15-2024 Departed Referred DO [facility] Work Phone: [facility] [place] [facility] Start: 08-08-2021 End: 08-09-[address] [...] Start: 03-26-2024 Influenza vaccination Influenza Vaccine (#1) [facility] Start: 07-26-2023 Advance Directive Discussion Advance Directive Discussion [facility] Start: 03-26-2023 Covid-19 Vaccine ( season) Covid-19 Vaccine ( season) [facility] Start: 2021 Pneumococcal Vaccine: 65+ (1 of 1 - PCV) Pneumococcal Vaccine: 65+ (1 of 1 - PCV) [facility] Start: 2021 Screening for osteoporosis Bone Density Screening [facility] Start: 2016 RSV Vaccine (1 - 1-dose 60+ series) RSV Vaccine (1 - 1-dose 60+ series) [facility] Start: 2006 Shingrix Vaccine (1 of 2) Shingrix Vaccine (1 of 2) [facility] Start: 2001 Diabetes Screening Diabetes Screening [facility] Start: 2001 Lipid panel Lipid Screening [facility] Start: 2001 Screening for malignant neoplasm of colon [facility] Start: 1996 Screening for malignant neoplasm of breast Mammogram Screening [facility] Start: 1975 Urine microalbumin profile DTaP,Tdap,Td Vaccine (1 - Tdap) [facility] Start: 1974 Anxiety Screening Anxiety Screening [facility] Start: 1974 Depression Screening Depression Screening [facility] Start: 1974 Hepatitis C screening Hepatitis C Screening [facility] aPTT in Platelet poo r plasma by Coagulation assay [facility] CT guided biopsy [facility] Immunizations Immunization Date Immunization Notes Care Provider Fa cility 09-18-2020 SARS-CoV-2 (COVID-19 ) mRNA BNT-162b2 vax Bhupendra LoreL [facility] [place] 08-28-2020 SARS-CoV-2 (COVID-19 ) mRNA BNT-162b2 vax Bhupendra LoreL [facility] Payers Date Payer Category Payer Self-pay 2022 Medicare HUMANA MEDICARE HUMANA GOLD PLUS [id number] 2022-Present [id number] [place] [phone] O [id number] 2022 Medicare [id number] 1958 Unknown [id number] 1955 Unknown [id number] 1955 Unknown [id number] 1955 Unknown [id number] Private Health Insurance A[employer] Insurance [facility] [id number] Unknown [id number] Social History Date Type Detail Facility Tobacco smoking status NHIS Unknown if ever smoked [facility] Work Phone: Start: 1955 Sex Assigned At Female F [facility] Tobacco smoking status NHIS Tobacco smoking consumption unknown [facility] Start: 1955 Sex assigned at Not on file [facility] Gender identity Not on file [facility] Start: 05-25-2024 End: 07-05-2024 Tobacco smoking status Never smoked tobacco (finding) [facility] Tobacco smoking status Never [facility] Start: 08-03-2024 Sex Female (finding) [facility] Functional Status Date Assessment Result Facility 05-25-2024 Functional Status N/A [facility] Clinical Notes 08-08-2021 to 07-05-2024 Note Date & Type Note Facility 07-05-2024 Evaluation note Diagnosis Onset Date Resolution LEIDA (acute kidney injury) acute July 05, 024 9:28am Hypokalemia acute June 9:28am Lung cancer acute June 9:28am LEIDA (acute kidney injury) acute August 03 3:15pm Hypokalemia acute August 03, 2024 3:15pm Lung cancer acute August 03, 2024 3:15pm [facility] Work Phone: [phone]) 636-752810-31-2024 NoteGeneral Surgery Office/Clinic Note Chief Complaint consultation for port HPI Staff 69 year old female presents on consultation from Dr. Chester for port placement. Patient with adenocarcinoma of right lung. History of Present Illness 69 yo female with h/o adenocarcinoma of right upper lobe of lung, referred for mhvsed-h-kyxd insertion; patient has already begun chemotherapy via [...] upper lobe, right bronchus or lung) plan [id number] insertion under anesthesia at [facility], informed consent obtained. Ancef 2 [...] Recorded SARS-CoV-2 (COVID-19) mRNA BNT-162b2 vax 08/28/2020 [facility]ed[facility] Hospital[facility] on above:Result Comment: Electronically Signed By: RIA BAILEY, Bhupendra King\Date and Time Signed: 05/25/24 16:13 [id number] NotePatient: Isela De La Roas Procedure Summary Date: 04/06/24 Room / Location: [facility] Main Operating Room Anesthesia Start: 1126 [...] were no known notable events for this encounter.[facility]09-12-2024 NoteAirway Date/Time: 04/06/2024 11:32 AM Urgency: elective Airway not difficult General Information and Staff Patient location during procedure: OR Anesthesiologist: Kevon Lamar MD Resident/SPECIAL EDUCATION PRESCHOOL TEACHER/CAA: Ananda Villatoro MD Performed: resident/SPECIAL EDUCATION PRESCHOOL TEACHER/CAA Indications and Patient Condition Indications for airway [...] (cm): 22 Number of attempts at approach: [facility]Un[facility] NotePatient: Isela Jud Procedure Summary Date: 04/06/24 Room / Location: [facility] Main Operating Room Anesthesia Start: 1126 [...] respond and follow verbal commands throughout transport processJ.W. [facility]09-12-2024 NotePatient: Isela Jud Procedure Information Date/Time: 04/06/24 1130 Scheduled providers: Rom Melton MD Procedure: BRONCHOSCOPY Location: [facility] Main Operating Room Relevant Problems No [...] with 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 Additional Equipment RequestsJ.W. [facility]09-09-[address] Chester. Patient needs more tissue for molecular testing. EBUS order placedJ.W. [facility]01-14-2022 NotePROCEDURE: XR KNEE LT 4V or [...] authenticated by: CARIE VELÁZQUEZ Date: 2021-08-08 14:54[facility] [place] [facility] No data available for this section [facility] [place] Evaluation noteNo assessment information available [facility] Work Phone: Hospital Discharge instructions No data available for this section [facility] [place] Progress note No data available for this section [facility] Summary Purpose Family History Relationship [...] and content) DATE CREATED AUTHOR 08/13/2021 [facility] DATE CREATED AUTHOR AUTHOR'S ORGANIZ ATION 2024 [facility] DATE CREATED AUTHOR AUTHOR'S ORGANIZ ATION 05/26/2024 [facility] DATE CREATED AUTHOR AUTHOR'S ORGANIZ ATION 07/20/2024 [facility] Care Teams (unrecognized sec tion and content) Team Status: Inactive Member Role Status Dates Vj Glass Nicolette MORLEY , DO Attending Provider Active Start: February 15, 2024 End: February 15, 2024 Exhibitor Sales Relationship Specialty Start Date End Date Brenda Baker MD [address] [place] [address] PCP - General Family Medicine 03/02/24 Team [...] or prosecute any alcohol or drug abuse patient.[facility] FOR RECORDS PERTAINING TO PATIENTS [...] BE BASED ON THE PRIMARY CLINICAL RECORDS. [facility]. provides no warranty or guarantee of the accuracy or completeness of information in this document.
[2024-08-19 10:44] VITALS: BP 141/95; PULSE 78; TEMP 36.7; O2SAT 96; BMI 25.2
--- NOTE | 2024-08-19 11:04 | ED.GENADUL1 ---
HPI HPI - General Adult General Chief complaint: Recheck/Abnormal Lab/Rx Stated complaint: COIL CONNECTOR ISSUE- PORT INSERTED 08/16/2024 Time Seen by Provider: 08/19/24 10:45 Source: patient Mode of arrival: walk-in Limitations: no limitations History of Present Illness HPI narrative: The patient has stage IV cancer and had a port placed so that she can undergo immunotherapy treatment. She is getting a second opinion regarding her diagnosis on Wednesday at the [facility]. She is also supposed to follow-up with the oncologist, Dr. Chester, on August 22, to discuss treatment options. Dr. Martines placed the port on August 16 here at [place]. She was just concerned that the site may potentially have a problem or be infected. She said is actually her daughter who is driving this narrative and has concerns about how the site looks. She is not experiencing any systemic symptoms such as fever or vomiting. There is no redness, drainage, foul smell, swelling or palpable lump or mass associated with either the areas in which her skin was involved -1 near the neck and then the portion in which the port was placed. Related Data Home Medications ?Medication ?Instructions ?Recorded ?Confirmed multivitamin (Daily Multi-Vitamin 1 tab PO DAILY 02/10/24 08/10/24 tablet) fentanyl 25 mcg/hr transdermal 1 patch topical Q72H 04/20/24 08/10/24 patch ibuprofen 600 mg tablet 600 mg PO Q8H PRN pain 04/20/24 08/16/24 ondansetron 4 mg disintegrating 4 mg PO Q8H PRN nausea and vomiting 04/20/24 08/10/24 tablet prochlorperazine maleate 10 mg 10 mg PO Q8H PRN nausea and 04/20/24 08/10/24 tablet vomiting levothyroxine 75 mcg tablet mcg 08/10/24 magnesium oxide mg 08/10/24 metoprolol tartrate 50 mg tablet mg 08/10/24 potassium 20 mg chewable tablet mg PO 08/10/24 Allergies Allergy/AdvReac Type Severity Reaction Status Date / Time No Known Drug Allergies Allergy Verified 08/19/24 10:48 Opioid HPI Opioid Management Most Recent Opioid Data: Last Pain Scale 3 08/16/24 14:07 08/16/24 Last Pain Assessment 08/16/24 14:07 Last ORT Total Score 0 04/20/24 14:32 04/20/24 Last ORT Risk Category Low Risk 04/20/24 14:32 04/20/24 PFSH PFS Medical History (Updated 08/19/24 @ 11:09 by Juan Johnson) Hypertension ?I10 - Essential (primary) hypertension (ICD-10) Hypothyroidism ?E03.9 - Hypothyroidism, unspecified (ICD-10) Thrombocytopenia ?D69.6 - Thrombocytopenia, unspecified (ICD-10) Lung cancer ?C34.90 - Malignant neoplasm of unspecified part of unspecified bronchus or lung (ICD-10) Sepsis ?A41.9 - Sepsis, unspecified organism (ICD-10) Fever of unknown origin ?R50.9 - Fever, unspecified (ICD-10) Arthritis ?M19.90 - Unspecified osteoarthritis, unspecified site (ICD-10) Situational depression ?F43.21 - Adjustment disorder with depressed mood (ICD-10) Cough ?R05.9 - Cough, unspecified (ICD-10) COVID-19 ?U07.1 - COVID-19 (ICD-10) Hilar lymphadenopathy ?R59.0 - Localized enlarged lymph nodes (ICD-10) Lung mass ?R91.8 - Other nonspecific abnormal finding of lung field (ICD-10) Surgical History (Updated 08/10/24 @ 09:30 by Pily Díaz) History of total hysterectomy with bilateral salpingo-oophorectomy (BSO) ?Z90.710 - Acquired absence of both cervix and uterus (ICD-10) ?Z90.722 - Acquired absence of ovaries, bilateral (ICD-10) ?Z90.79 - Acquired absence of other genital organ(s) (ICD-10) History of inguinal hernia repair ?Z98.890 - Other specified postprocedural states (ICD-10) ?Z87.19 - Personal history of other diseases of the digestive system (ICD-10) Status post peripherally inserted central catheter (PICC) central line placement (~03/2024) ?Z95.828 - Presence of other vascular implants and grafts (ICD-10) History of lung biopsy (~02/2024) ?Z98.890 - Other specified postprocedural states (ICD-10) History of bronchoscopy (02/15/24) ?Z98.890 - Other specified postprocedural states (ICD-10) History of surgery on arm ?Z98.890 - Other specified postprocedural states (ICD-10) History of hysterectomy ?Z90.710 - Acquired absence of both cervix and uterus (ICD-10) History of section ?Z98.891 - History of uterine scar from previous surgery (ICD-10) Family History (Updated 08/10/24 @ 09:40 by Pily Díaz) Other Family history of Alzheimer's disease Family history of COPD (chronic obstructive pulmonary disease) Family history of aneurysm Family history of emphysema Family history of heart disease Family history of hypertension Family history of lung cancer Family history of myocardial infarction Social History (Updated 08/10/24 @ 09:38 by Pily Díaz) Within the past year, how often did you have a drink containing alcohol: never Score interpretation: A score less than 3 is consistent with normal alcohol consumption. Smoking status: Never smoker Non-prescribed substance use: denies use Previous occupational history: retired Highest level of school completed/degree received: some college, no degree Little interest or pleasure in doing things: not at all Feeling down, depressed, or hopeless: not at all Exam Narrative Exam Narrative: Nurses notes and vital signs reviewed and patient is not hypoxic. afebrile General: Well-appearing and in no apparent distress. Skin: Warm, dry, no pallor noted. 2 areas of the patient's skin were evaluated, particular to her area of concern. 1 is near the anterior portion of the right lateral neck in which there is a small incision that has been repaired with glue and likely subcutaneous sutures that are dissolvable. There is no erythema, drainage, palpable induration or fluctuance in this area. Is not tender to palpation. The second area is in the upper anterior chest, just below the clavicle, and the area in which the port is placed, which is palpable. There is again no erythema, warmth, palpable induration or palpable fluctuance in this area. There is some ecchymosis of varying color from yellow to a purpleish tone. Additionally the incision is covered with wound adhesive. Once again no drainage, swelling or unusual erythema or worrisome findings at this site either. Head: Normocephalic, atraumatic. Neck: Supple, non-tender. Skin description as above Eye: Pupils are equal, round and EOMI. No scleral icterus. Ears, Nose, Mouth, and Throat: Oral mucosa is moist Cardiovascular: Regular Rate and Rhythm without murmur, gallop or rub. Respiratory: No accessory muscle use or respiratory distress. Lungs are clear to auscultation, no wheezing, rales or rhonchi Neurological: A&O x4. No cranial nerve dysfunction observed. No truncal ataxia. Moves all extremities. Sensation intact. Psychiatric: Cooperative and interactive. Normal mood and affect. Constitutional Vital Signs, click to edit/add: Last Vital Signs Temp 98.1 F 08/19/24 10:44 Pulse 78 08/19/24 10:44 Resp 20 08/19/24 10:44 BP 141/95 H 08/19/24 10:44 Pulse Ox 96 08/19/24 10:44 Course Vital Signs Vital signs: Vital Signs Temperature 98.1 F 08/19/24 10:44 Pulse Rate 78 08/19/24 10:44 Respiratory Rate 20 08/19/24 10:44 Blood Pressure 141/95 H 08/19/24 10:44 Pulse Oximetry 96 08/19/24 10:44 Temperature 98.1 F 08/19/24 10:44 Pulse Rate 78 08/19/24 10:44 Respiratory Rate 20 08/19/24 10:44 Blood Pressure 141/95 H 08/19/24 10:44 Pulse Oximetry 96 08/19/24 10:44 Medical Decision Making MDM Narrative Medical decision making narrative: I evaluated the patient's surgical wounds and there is no need for concern at this time. There is no evidence of infection, induration, fluctuance, new mass or other worrisome findings. The patient will have her appointment on August 21 at the [facility] for a second opinion regarding her stage IV metastatic cancer diagnosis. I instructed her to also keep her August [address] Chester, the oncologist, to discuss her further treatment plan. I also let her know that she can always call Dr. Martines's office if she has additional questions during the week regarding the implantation of the port. Discharge Plan Discharge Chief Complaint: Recheck/Abnormal Lab/Rx Clinical Impression: Encounter for wound re-check Patient Disposition: Home, Self-Care Time of Disposition Decision: 11:09 Prescriptions / Home Meds: No Action multivitamin [Daily Multi-Vitamin] Tablet 1 tab PO DAILY fentanyl 25 mcg/hr patch 72 hour 1 patch topical Q72H ibuprofen 600 mg tablet 600 mg PO Q8H PRN (Reason: pain) ondansetron 4 mg tablet,disintegrating 4 mg PO Q8H PRN (Reason: nausea and vomiting) prochlorperazine maleate 10 mg tablet 10 mg PO Q8H PRN (Reason: nausea and vomiting) magnesium oxide 400 mg magnesium capsule metoprolol tartrate 50 mg tablet potassium 20 mg tablet,chewable PO levothyroxine 75 mcg tablet Print Language: Polish Instructions: Skin Adhesive Care (ED) Referrals: Mark Baker MD [Primary Care Provider] - 1 week
== END 2024-08-19 11:19 | disposition home or self-care (01) ==
PROVIDERS: Emergency Provider Emergency Medicine; PCP Family Medicine
DX: Z48.817 Encounter for surgical aftercare following surgery on the skin and subcutaneous tissue (principal); Z90.710 Acquired absence of both cervix and uterus
CPT/HCPCS: 99281

== ENCOUNTER 2024-08-22 07:35 | Outpatient (RCR) | payer MEDICARE, SELFPAY ==
[2024-08-01 09:35] LABS: Hematocrit 25.6 % (36.0-48.0); Hemoglobin 8.3 g/dL (12.0-16.0); Mean Corpuscular HGB Conc 32.4 g/dL (29.9-35.2); Mean Corpuscular Hemoglobin 31.2 pg (26.7-34.0); Mean Corpuscular Volume 96.2 fL (81.0-99.0); Mean Platelet Volume 13.3 fL (9.5-13.5); Platelet Count 86 10^3/uL (150-450); Red Blood Count 2.66 10^6/uL (4.20-5.40); Red Cell Distribution Width 16.7 % (11.0-15.0); White Blood Count 8.9 10^3/uL (4.0-11.0)
[2024-08-01 09:50] LABS: Erythrocyte Sedimentation Rate 70 mm/hr (<=30)
[2024-08-01 09:55] VITALS: BP 164/94; PULSE 89; TEMP 36.3; O2SAT 97
[2024-08-01 09:59] LABS: Alanine Aminotransferase 29 U/L (14-59); Albumin Globulin Ratio 0.9; Albumin Level 3.6 g/dL (3.4-5.0); Alkaline Phosphatase 103 U/L (46-116); Anion Gap 15.8; Aspartate Amino Transferase 20 U/L (15-37); BUN Creatinine Ratio 10.9; Bilirubin Total 0.2 mg/dL (0.2-1.0); C Reactive Protein <0.50 mg/dL (<=0.50); Calcium 8.6 mg/dL (8.5-10.1); Carbon Dioxide 24.8 mmol/L (21.0-32.0); Chloride 105 mmol/L (98-107); Estimated GFR (African America 35 (>=60 mL/min/1.73m^2); Estimated GFR (Non-African Ame 29 (>=60 mL/min/1.73m^2); Glucose 118 mg/dL (74-106); Magnesium 1.4 mg/dL (1.8-2.4); Potassium 3.6 mmol/L (3.5-5.1); Sodium 142 mmol/L (136-145); TSH W/ REFLEX FT4 10.575 uIU/mL (0.358-3.740); Total Protein 7.6 g/dL (6.4-8.2)
[2024-08-01 10:02] LABS: Lymphocytes Absolute Manual 2.31 10^3/uL (1.20-3.80); Segmented Neut Absolute Manual 4.89 10^3/uL (1.4-6.5)
[2024-08-01 10:03] LABS: Basophils Abs Manual 0.08 10^3/uL (0.00-0.10); Eosinophils Absolute Manual 0.08 10^3/uL (0.00-0.70); Monocytes Absolute Manual 1.51 10^3/uL (0.30-0.80)
[2024-08-01 10:07] LABS: Percent Iron Saturation 36.1 %
[2024-08-01 10:27] LABS: Free T4 0.94 ng/dL (0.76-1.46)
[2024-08-01] MEDS: EPOETIN ALFA 20,000 UNIT/2 ML VIAL 40000 UNIT SUBQ (10:45)
[2024-08-01 13:19] LABS: Bilirubin Urine NEGATIVE (NEGATIVE); Blood Urine NEGATIVE (NEGATIVE); Clarity Urine CLEAR (CLEAR); Color Urine LT. YELLOW (YELLOW); Glucose Urine UA NEGATIVE (NEGATIVE); Ketones Urine NEGATIVE (NEGATIVE); Leukocyte Esterase Urine SMALL (NEGATIVE); Nitrite Urine NEGATIVE (NEGATIVE); Protein Urine NEGATIVE (NEG/TRACE); Specific Gravity Urine <=1.005 (1.005-1.025); Urobilinogen Urine 0.2 EU/dL (0.2-1.0)
[2024-08-01 13:21] LABS: Urine Microscopic Indicated YES
[2024-08-01 13:35] LABS: Bacteria Urine TRACE #/HPF (NONE SEEN); Mucus Urine NONE SEEN (NONE SEEN); RBC Urine NONE SEEN #/HPF (0-2); Squamous Epithelial Cell Urine RARE #/LPF (NONE/RARE)
[2024-08-01 13:36] LABS: Cast Seen? NONE SEEN #/LPF (NONE SEEN); Crystals Seen? None Seen #/HPF (None Seen); Urine Culture Indicated NO
--- NOTE | 2024-08-01 14:21 | PC.NURSE ---
1045 injection as ordered, to posterior aspect of right arm. Tolerated well. Dr. Chester in and speaks with patient and family.
[2024-08-02 04:08] LABS: Vitamin B12 >2000 pg/mL (232-1245)
[2024-08-08 09:15] VITALS: BP 164/87; PULSE 79; TEMP 36.4; O2SAT 98
[2024-08-08 09:40] LABS: Basophils Percent Auto 0.2 % (0.2-2.0); Hematocrit 27.4 % (36.0-48.0); Hemoglobin 8.7 g/dL (12.0-16.0); Immature Granulocytes Abs Auto 0.07 10^3/uL (0.00-0.03); Immature Granulocytes Pct Auto 0.9 % (0.0-0.5); Lymphocytes Absolute Auto 0.7 10^3/uL (1.2-3.8); Lymphocytes Percent Auto 9.1 % (20.5-60.0); Mean Corpuscular HGB Conc 31.8 g/dL (29.9-35.2); Mean Corpuscular Hemoglobin 32.2 pg (26.7-34.0); Mean Corpuscular Volume 101.5 fL (81.0-99.0); Mean Platelet Volume 11.1 fL (9.5-13.5); Monocytes Absolute Auto 1.1 10^3/uL (0.3-0.8); Monocytes Percent Auto 13.6 % (1.7-12.0); Neutrophils Absolute Auto 6.2 10^3/uL (1.4-6.5); Neutrophils Percent Auto 76.2 % (43.0-75.0); Platelet Count 228 10^3/uL (150-450); White Blood Count 8.1 10^3/uL (4.0-11.0)
[2024-08-08 09:48] LABS: Erythrocyte Sedimentation Rate 33 mm/hr (<=30)
[2024-08-08 10:03] LABS: Alanine Aminotransferase 21 U/L (14-59); Albumin Globulin Ratio 0.9; Albumin Level 3.4 g/dL (3.4-5.0); Alkaline Phosphatase 93 U/L (46-116); Anion Gap 13.1; Aspartate Amino Transferase 13 U/L (15-37); BUN Creatinine Ratio 7.1; Bilirubin Total 0.2 mg/dL (0.2-1.0); C Reactive Protein <0.50 mg/dL (<=0.50); Calcium 8.3 mg/dL (8.5-10.1); Carbon Dioxide 26.6 mmol/L (21.0-32.0); Chloride 103 mmol/L (98-107); Estimated GFR (African America 33 (>=60 mL/min/1.73m^2); Estimated GFR (Non-African Ame 27 (>=60 mL/min/1.73m^2); Globulin 3.7 g/dL; Glucose 148 mg/dL (74-106); Magnesium 1.5 mg/dL (1.8-2.4); Percent Iron Saturation 9.7 %; Potassium 3.7 mmol/L (3.5-5.1); Sodium 139 mmol/L (136-145); Thyroid Stimulating Hormone 5.978 uIU/mL (0.358-3.740); Total Protein 7.1 g/dL (6.4-8.2)
[2024-08-08 10:25] LABS: Free T4 0.97 ng/dL (0.76-1.46)
[2024-08-08] MEDS: MAGNESIUM SULFATE IN WATER 2 GM/50 ML PREMIX IV (10:44)
[2024-08-08] MEDS: EPOETIN ALFA 20,000 UNIT/2 ML VIAL 40000 UNIT SUBQ (10:45)
[2024-08-08] MEDS: DENOSUMAB 120 MG/1.7 ML VIAL SQ (10:45)
[2024-08-09 05:07] LABS: HBsAg Screen Negative (Negative); Hep B Core Ab, Tot Negative (Negative); Hepatitis B Surf Ab Quant <3.5 mIU/mL (Immunity>10)
[2024-08-15 09:48] LABS: Basophils Percent Auto 0.4 % (0.2-2.0); Eosinophils Percent Auto 0.4 % (0.9-7.0); Hematocrit 33.3 % (36.0-48.0); Hemoglobin 10.5 g/dL (12.0-16.0); Immature Granulocytes Abs Auto 0.02 10^3/uL (0.00-0.03); Immature Granulocytes Pct Auto 0.3 % (0.0-0.5); Lymphocytes Percent Auto 13.3 % (20.5-60.0); Mean Corpuscular HGB Conc 31.5 g/dL (29.9-35.2); Mean Corpuscular Hemoglobin 32.1 pg (26.7-34.0); Mean Corpuscular Volume 101.8 fL (81.0-99.0); Mean Platelet Volume 12.8 fL (9.5-13.5); Monocytes Absolute Auto 1.2 10^3/uL (0.3-0.8); Monocytes Percent Auto 16.1 % (1.7-12.0); Neutrophils Percent Auto 69.5 % (43.0-75.0); Platelet Count 150 10^3/uL (150-450); Red Blood Count 3.27 10^6/uL (4.20-5.40); Red Cell Distribution Width 18.5 % (11.0-15.0); White Blood Count 7.2 10^3/uL (4.0-11.0)
[2024-08-15 10:02] LABS: Alanine Aminotransferase 19 U/L (14-59); Albumin Globulin Ratio 0.9; Albumin Level 3.5 g/dL (3.4-5.0); Alkaline Phosphatase 91 U/L (46-116); Anion Gap 12.3; Aspartate Amino Transferase 16 U/L (15-37); BUN Creatinine Ratio 10.1; Bilirubin Total 0.2 mg/dL (0.2-1.0); Calcium 8.6 mg/dL (8.5-10.1); Carbon Dioxide 25.1 mmol/L (21.0-32.0); Chloride 104 mmol/L (98-107); Estimated GFR (African America 39 (>=60 mL/min/1.73m^2); Estimated GFR (Non-African Ame 33 (>=60 mL/min/1.73m^2); Glucose 124 mg/dL (74-106); Potassium 4.4 mmol/L (3.5-5.1); Sodium 137 mmol/L (136-145); TSH W/ REFLEX FT4 3.913 uIU/mL (0.358-3.740); Total Protein 7.5 g/dL (6.4-8.2)
[2024-08-15 10:31] LABS: Free T4 1.12 ng/dL (0.76-1.46)
[2024-08-15 10:32] LABS: Magnesium 1.7 mg/dL (1.8-2.4)
[2024-08-22 10:02] VITALS: BP 166/81; PULSE 60; TEMP 36.5; O2SAT 97
[2024-08-22 10:07] LABS: Basophils Percent Auto 0.5 % (0.2-2.0); Eosinophils Absolute Auto 0.1 10^3/uL (0.0-0.7); Eosinophils Percent Auto 1.5 % (0.9-7.0); Hematocrit 34.4 % (36.0-48.0); Hemoglobin 10.8 g/dL (12.0-16.0); Immature Granulocytes Abs Auto 0.02 10^3/uL (0.00-0.03); Immature Granulocytes Pct Auto 0.3 % (0.0-0.5); Lymphocytes Absolute Auto 0.9 10^3/uL (1.2-3.8); Lymphocytes Percent Auto 12.4 % (20.5-60.0); Mean Corpuscular HGB Conc 31.4 g/dL (29.9-35.2); Mean Corpuscular Hemoglobin 32.2 pg (26.7-34.0); Mean Corpuscular Volume 102.7 fL (81.0-99.0); Mean Platelet Volume 12.1 fL (9.5-13.5); Monocytes Absolute Auto 1.1 10^3/uL (0.3-0.8); Monocytes Percent Auto 14.4 % (1.7-12.0); Neutrophils Absolute Auto 5.2 10^3/uL (1.4-6.5); Neutrophils Percent Auto 70.9 % (43.0-75.0); Platelet Count 181 10^3/uL (150-450); Red Blood Count 3.35 10^6/uL (4.20-5.40); Red Cell Distribution Width 15.4 % (11.0-15.0); White Blood Count 7.4 10^3/uL (4.0-11.0)
[2024-08-22 10:31] LABS: Alanine Aminotransferase 19 U/L (14-59); Albumin Globulin Ratio 0.9; Albumin Level 3.5 g/dL (3.4-5.0); Alkaline Phosphatase 91 U/L (46-116); Anion Gap 10.9; Aspartate Amino Transferase 16 U/L (15-37); BUN Creatinine Ratio 12.3; Bilirubin Total 0.3 mg/dL (0.2-1.0); Calcium 8.6 mg/dL (8.5-10.1); Carbon Dioxide 26.4 mmol/L (21.0-32.0); Chloride 104 mmol/L (98-107); Estimated GFR (African America 38 (>=60 mL/min/1.73m^2); Estimated GFR (Non-African Ame 32 (>=60 mL/min/1.73m^2); Globulin 3.9 g/dL; Glucose 129 mg/dL (74-106); Magnesium 1.7 mg/dL (1.8-2.4); Potassium 4.3 mmol/L (3.5-5.1); Sodium 137 mmol/L (136-145); TSH W/ REFLEX FT4 2.597 uIU/mL (0.358-3.740); Total Protein 7.4 g/dL (6.4-8.2)
[2024-08-22] MEDS: IRON SUCROSE COMPLEX 300 MG in 0.9 % SODIUM CHLORIDE 250 ML 176.667 MG IV (11:55)
[2024-08-22 13:36] VITALS: BP 152/92; PULSE 62; TEMP 36.6; O2SAT 96
== END 2024-08-23 11:07 | disposition home or self-care (01) ==
LOC: HEMC 07:35
PROVIDERS: PCP Internal Medicine Hematology & Oncology; Visit Provider Internal Medicine Hematology & Oncology
DX: C34.11 Malignant neoplasm of upper lobe, right bronchus or lung (principal); C79.51 Secondary malignant neoplasm of bone; C77.1 Secondary and unspecified malignant neoplasm of intrathoracic lymph nodes; C78.7 Secondary malignant neoplasm of liver and intrahepatic bile duct; D69.6 Thrombocytopenia, unspecified; Z79.899 Other long term (current) drug therapy; R11.2 Nausea with vomiting, unspecified; D64.9 Anemia, unspecified; D70.1 Agranulocytosis secondary to cancer chemotherapy; D64.81 Anemia due to antineoplastic chemotherapy; Z90.710 Acquired absence of both cervix and uterus; Z90.722 Acquired absence of ovaries, bilateral; D50.9 Iron deficiency anemia, unspecified; K90.9 Intestinal malabsorption, unspecified; Z86.16 Personal history of COVID-19; R05.3 Chronic cough; N17.9 Acute kidney failure, unspecified
CPT/HCPCS: 36591; 36592; 80053; 81001; 82607; 82728; 83540; 83550; 83735; 84439; 84443; 85007; 85025; 85027; 85652; 86140; 86317; 86704; 87340; 96365; 96366; 96372; 99211; G0463; J0885; J0897; J1756; J3475

== ENCOUNTER 2024-09-19 07:31 | Outpatient (RCR) | payer MEDICARE, SELFPAY ==
[2024-08-29 09:15] VITALS: BP 147/89; PULSE 74; TEMP 35.8; O2SAT 98
--- NOTE | 2024-08-29 09:31 | PC.NURSE ---
0930: Dr. Chester to chairside for MD visit.
[2024-08-29 09:32] LABS: Basophils Percent Auto 0.6 % (0.2-2.0); Eosinophils Absolute Auto 0.4 10^3/uL (0.0-0.7); Eosinophils Percent Auto 5.2 % (0.9-7.0); Hematocrit 34.7 % (36.0-48.0); Hemoglobin 11.1 g/dL (12.0-16.0); Immature Granulocytes Abs Auto 0.02 10^3/uL (0.00-0.03); Immature Granulocytes Pct Auto 0.3 % (0.0-0.5); Lymphocytes Absolute Auto 1.2 10^3/uL (1.2-3.8); Lymphocytes Percent Auto 17.6 % (20.5-60.0); Mean Corpuscular Hemoglobin 31.6 pg (26.7-34.0); Mean Corpuscular Volume 98.9 fL (81.0-99.0); Mean Platelet Volume 11.9 fL (9.5-13.5); Neutrophils Absolute Auto 4.1 10^3/uL (1.4-6.5); Neutrophils Percent Auto 61.3 % (43.0-75.0); Platelet Count 129 10^3/uL (150-450); Red Blood Count 3.51 10^6/uL (4.20-5.40); Red Cell Distribution Width 13.8 % (11.0-15.0); White Blood Count 6.7 10^3/uL (4.0-11.0)
[2024-08-29 09:42] LABS: Magnesium 1.7 mg/dL (1.8-2.4)
[2024-08-29 09:48] LABS: Alanine Aminotransferase 24 U/L (14-59); Albumin Globulin Ratio 0.9; Albumin Level 3.6 g/dL (3.4-5.0); Alkaline Phosphatase 98 U/L (46-116); Anion Gap 14.4; Aspartate Amino Transferase 25 U/L (15-37); Bilirubin Total 0.2 mg/dL (0.2-1.0); Calcium 8.5 mg/dL (8.5-10.1); Carbon Dioxide 27.3 mmol/L (21.0-32.0); Chloride 102 mmol/L (98-107); Estimated GFR (African America 42 (>=60 mL/min/1.73m^2); Estimated GFR (Non-African Ame 35 (>=60 mL/min/1.73m^2); Glucose 148 mg/dL (74-106); Potassium 3.7 mmol/L (3.5-5.1); Sodium 140 mmol/L (136-145); Total Protein 7.6 g/dL (6.4-8.2)
[2024-08-29] MEDS: DEXAMETHASONE SODIUM PHOSPHATE 10 MG in 0.9 % SODIUM CHLORIDE 100 ML 303 MG IV (10:39)
[2024-08-29] MEDS: 0.9 % SODIUM CHLORIDE 250 ML 10 ML IV (10:39)
[2024-08-29] MEDS: CYANOCOBALAMIN 1,000 MCG/ML VIAL 1000 MCG IM (10:43)
--- NOTE | 2024-08-29 10:59 | PC.NURSE ---
1039: IV Decadron initiated at this time. Pt. drinking strawberry protein shake. Denies needs or c/o.
[2024-08-29] MEDS: SODIUM CHLORIDE 0.9% IV (11:16)
[2024-08-29] MEDS: PEMETREXED DISODIUM IV (11:16)
--- NOTE | 2024-08-29 11:22 | PC.NURSE ---
1116: IV Pemetrexed initiated at this time. Pt. without needs or c/o.
[2024-08-29] MEDS: HEPARIN SODIUM (PORCINE) PF LOCK FLUSH 500 UNIT/5 ML SYRINGE IV (11:33)
[2024-08-29 11:40] VITALS: BP 148/82; PULSE 70; TEMP 36.1; O2SAT 96
[2024-09-04 12:26] VITALS: BP 139/76; PULSE 93; TEMP 38.4; O2SAT 98
--- NOTE | 2024-09-04 12:32 | PC.NURSE ---
6886 Dr. Chester notified of above documentation and symptoms. Patient had origianally went to see Dr. Baker because she was concerned her port was infected, noted no reddness or edema at port site. However while at PCP office noted she had fever of 101.5. Patient stated she was checked for covid which was negative. Placed on augmentin and tamiflu per Dr. Baker
[2024-09-04 12:42] LABS: Basophils Percent Auto 0.2 % (0.2-2.0); Eosinophils Absolute Auto 0.1 10^3/uL (0.0-0.7); Hematocrit 31.8 % (36.0-48.0); Hemoglobin 10.5 g/dL (12.0-16.0); Immature Granulocytes Abs Auto 0.03 10^3/uL (0.00-0.03); Immature Granulocytes Pct Auto 0.6 % (0.0-0.5); Lymphocytes Absolute Auto 0.6 10^3/uL (1.2-3.8); Lymphocytes Percent Auto 12.8 % (20.5-60.0); Mean Corpuscular Hemoglobin 31.5 pg (26.7-34.0); Mean Corpuscular Volume 95.5 fL (81.0-99.0); Mean Platelet Volume 13.2 fL (9.5-13.5); Monocytes Absolute Auto 0.2 10^3/uL (0.3-0.8); Monocytes Percent Auto 4.1 % (1.7-12.0); Neutrophils Absolute Auto 3.9 10^3/uL (1.4-6.5); Neutrophils Percent Auto 81.3 % (43.0-75.0); Red Blood Count 3.33 10^6/uL (4.20-5.40); Red Cell Distribution Width 13.1 % (11.0-15.0); White Blood Count 4.9 10^3/uL (4.0-11.0)
[2024-09-04 12:48] LABS: Anion Gap 16.7; Calcium 8.3 mg/dL (8.5-10.1); Carbon Dioxide 23.8 mmol/L (21.0-32.0); Chloride 99 mmol/L (98-107); Estimated GFR (African America 39 (>=60 mL/min/1.73m^2); Estimated GFR (Non-African Ame 32 (>=60 mL/min/1.73m^2); Glucose 124 mg/dL (74-106); Potassium 3.5 mmol/L (3.5-5.1); Sodium 136 mmol/L (136-145)
[2024-09-04 13:00] LABS: Platelet Count 95 10^3/uL (150-450)
[2024-09-05 09:28] VITALS: BP 134/87; PULSE 82; TEMP 38; O2SAT 99
[2024-09-05] MEDS: DENOSUMAB 120 MG/1.7 ML VIAL SQ (09:52)
[2024-09-12 10:06] VITALS: BP 150/81; PULSE 72; TEMP 36.4; O2SAT 97
[2024-09-12 10:24] LABS: Basophils Percent Auto 0.4 % (0.2-2.0); Eosinophils Absolute Auto 0.2 10^3/uL (0.0-0.7); Eosinophils Percent Auto 3.9 % (0.9-7.0); Hematocrit 32.5 % (36.0-48.0); Hemoglobin 10.6 g/dL (12.0-16.0); Immature Granulocytes Pct Auto 1.8 % (0.0-0.5); Lymphocytes Absolute Auto 1.4 10^3/uL (1.2-3.8); Lymphocytes Percent Auto 24.9 % (20.5-60.0); Mean Corpuscular HGB Conc 32.6 g/dL (29.9-35.2); Mean Corpuscular Hemoglobin 31.1 pg (26.7-34.0); Mean Corpuscular Volume 95.3 fL (81.0-99.0); Mean Platelet Volume 13.9 fL (9.5-13.5); Monocytes Absolute Auto 1.1 10^3/uL (0.3-0.8); Neutrophils Absolute Auto 2.6 10^3/uL (1.4-6.5); Platelet Count 64 10^3/uL (150-450); Red Blood Count 3.41 10^6/uL (4.20-5.40); Red Cell Distribution Width 12.8 % (11.0-15.0); White Blood Count 5.4 10^3/uL (4.0-11.0)
[2024-09-12 10:34] LABS: Anion Gap 11.3; BUN Creatinine Ratio 11.9; Calcium 8.7 mg/dL (8.5-10.1); Carbon Dioxide 28.6 mmol/L (21.0-32.0); Chloride 102 mmol/L (98-107); Estimated GFR (African America 37 (>=60 mL/min/1.73m^2); Estimated GFR (Non-African Ame 30 (>=60 mL/min/1.73m^2); Glucose 122 mg/dL (74-106); Potassium 3.9 mmol/L (3.5-5.1); Sodium 138 mmol/L (136-145)
--- NOTE | 2024-09-12 11:41 | PC.NURSE ---
1100 Dr. Chester in and examines, reviews labs, speaks with patient. platelets noted to be low. also noted cr sl elevating. ordered 1 liter of ns over 1 hour. Patient and family member discussed with Dr. Chester possibly postponing kidney biopsy unless we can get platelets today and give them. patient and family aware and understand need for platelets prior to biopsy. 1130 lunch ordered,
[2024-09-12] MEDS: 0.9 % SODIUM CHLORIDE 1,000 ML 666.667 ML IV (11:45)
[2024-09-12] MEDS: DIPHENHYDRAMINE HCL 25 MG CAPSULE PO (15:00)
[2024-09-12] MEDS: ACETAMINOPHEN 325 MG TABLET 650 MG PO (15:00)
[2024-09-12] MEDS: 0.9 % SODIUM CHLORIDE 250 ML 10 ML IV (15:05)
[2024-09-12 15:19] VITALS: BP 129/79; PULSE 58; TEMP 36.5; O2SAT 97
--- NOTE | 2024-09-12 15:31 | PC.NURSE ---
1519:1 unit platelets initiated at this time. Pt. without c/o or needs.
[2024-09-12 15:34] VITALS: BP 109/70; PULSE 55; TEMP 36.6; O2SAT 97
--- NOTE | 2024-09-12 15:46 | PC.NURSE ---
Resting quietly with eyes closed. Appears to be without s&s of distress or discomfort.
[2024-09-12 16:03] VITALS: BP 102/70; PULSE 52; TEMP 36.6; O2SAT 96
[2024-09-19 09:15] VITALS: BP 157/90; PULSE 76; TEMP 36.9; O2SAT 98
[2024-09-19 09:46] LABS: Hematocrit 27.7 % (36.0-48.0); Hemoglobin 9.3 g/dL (12.0-16.0); Mean Corpuscular HGB Conc 33.6 g/dL (29.9-35.2); Mean Corpuscular Hemoglobin 32.1 pg (26.7-34.0); Mean Corpuscular Volume 95.5 fL (81.0-99.0); Mean Platelet Volume 10.5 fL (9.5-13.5); Platelet Count 258 10^3/uL (150-450); Red Cell Distribution Width 13.3 % (11.0-15.0); White Blood Count 5.6 10^3/uL (4.0-11.0)
[2024-09-19 10:05] LABS: Alanine Aminotransferase 32 U/L (14-59); Albumin Globulin Ratio 0.8; Albumin Level 3.3 g/dL (3.4-5.0); Alkaline Phosphatase 93 U/L (46-116); Anion Gap 14.4; Aspartate Amino Transferase 28 U/L (15-37); BUN Creatinine Ratio 5.2; Bilirubin Total 0.2 mg/dL (0.2-1.0); Calcium 8.7 mg/dL (8.5-10.1); Carbon Dioxide 24.9 mmol/L (21.0-32.0); Chloride 100 mmol/L (98-107); Estimated GFR (African America 36 (>=60 mL/min/1.73m^2); Estimated GFR (Non-African Ame 29 (>=60 mL/min/1.73m^2); Globulin 4.3 g/dL; Glucose 123 mg/dL (74-106); Potassium 3.3 mmol/L (3.5-5.1); Sodium 136 mmol/L (136-145); Total Protein 7.6 g/dL (6.4-8.2)
[2024-09-19 10:13] LABS: Eosinophils Absolute Manual 0.16 10^3/uL (0.00-0.70); Lymphocytes Absolute Manual 0.61 10^3/uL (1.20-3.80)
--- NOTE | 2024-09-19 10:15 | PC.NURSE ---
0955: Dr. Chester to chairside for MD visit.
[2024-09-19] MEDS: 0.9 % SODIUM CHLORIDE 1,000 ML 1000 ML IV (10:16)
[2024-09-19] MEDS: EPOETIN ALFA 20,000 UNIT/2 ML VIAL 40000 UNIT SUBQ (10:25)
--- NOTE | 2024-09-19 10:28 | PC.NURSE ---
1015: IV 0.9% NS infusion initiated at this time for c/o nausea. Pt. denies needs or c/o.
--- NOTE | 2024-09-19 10:30 | PC.NURSE ---
1025: Hgb 9.3. Medicated with Epogen 40,000 units as directed. No bleeding to sites. Tolerates without c/o
[2024-09-19] MEDS: HEPARIN SODIUM (PORCINE) PF LOCK FLUSH 500 UNIT/5 ML SYRINGE IV (11:14)
== END 2024-09-20 08:28 | disposition home or self-care (01) ==
LOC: HEMC 07:31
PROVIDERS: PCP Family Medicine; Visit Provider Internal Medicine Hematology & Oncology
DX: Z51.11 Encounter for antineoplastic chemotherapy (principal); C34.11 Malignant neoplasm of upper lobe, right bronchus or lung; C78.7 Secondary malignant neoplasm of liver and intrahepatic bile duct; C79.51 Secondary malignant neoplasm of bone; D69.6 Thrombocytopenia, unspecified; D70.1 Agranulocytosis secondary to cancer chemotherapy; Z79.899 Other long term (current) drug therapy; D64.81 Anemia due to antineoplastic chemotherapy; D50.9 Iron deficiency anemia, unspecified; C77.1 Secondary and unspecified malignant neoplasm of intrathoracic lymph nodes; K90.9 Intestinal malabsorption, unspecified; Z86.16 Personal history of COVID-19; Z90.710 Acquired absence of both cervix and uterus; R05.3 Chronic cough
CPT/HCPCS: 36415; 36430; 36591; 80048; 80053; 83735; 85007; 85025; 85027; 86850; 86900; 86901; 87040; 96367; 96372; 96413; G0463; J0885; J0897; J1100; J1642; J3420; J9305; P9035

== ENCOUNTER 2024-10-17 11:30 | Outpatient (RCR) | payer MEDICARE, SELFPAY ==
[2024-09-26 09:20] VITALS: BP 171/91; PULSE 71; TEMP 36.2; O2SAT 96
[2024-09-26 09:52] LABS: Basophils Percent Auto 0.4 % (0.2-2.0); Eosinophils Absolute Auto 0.3 10^3/uL (0.0-0.7); Hematocrit 30.9 % (36.0-48.0); Hemoglobin 9.9 g/dL (12.0-16.0); Immature Granulocytes Abs Auto 0.04 10^3/uL (0.00-0.03); Immature Granulocytes Pct Auto 0.7 % (0.0-0.5); Lymphocytes Absolute Auto 0.7 10^3/uL (1.2-3.8); Lymphocytes Percent Auto 13.2 % (20.5-60.0); Mean Corpuscular Hemoglobin 31.5 pg (26.7-34.0); Mean Corpuscular Volume 98.4 fL (81.0-99.0); Monocytes Absolute Auto 1.1 10^3/uL (0.3-0.8); Monocytes Percent Auto 19.7 % (1.7-12.0); Neutrophils Absolute Auto 3.3 10^3/uL (1.4-6.5); Platelet Count 214 10^3/uL (150-450); Red Blood Count 3.14 10^6/uL (4.20-5.40); Red Cell Distribution Width 15.2 % (11.0-15.0); White Blood Count 5.5 10^3/uL (4.0-11.0)
[2024-09-26] MEDS: HYDROCODONE/ACET 5-325 MG TABLET 1 TAB PO (10:06)
[2024-09-26 10:12] LABS: Alanine Aminotransferase 19 U/L (14-59); Albumin Globulin Ratio 0.7; Albumin Level 3.2 g/dL (3.4-5.0); Alkaline Phosphatase 97 U/L (46-116); Anion Gap 11.7; Aspartate Amino Transferase 25 U/L (15-37); BUN Creatinine Ratio 4.9; Bilirubin Total 0.3 mg/dL (0.2-1.0); Calcium 9.3 mg/dL (8.5-10.1); Carbon Dioxide 26.8 mmol/L (21.0-32.0); Chloride 101 mmol/L (98-107); Estimated GFR (African America 33 (>=60 mL/min/1.73m^2); Estimated GFR (Non-African Ame 27 (>=60 mL/min/1.73m^2); Globulin 4.4 g/dL; Glucose 133 mg/dL (74-106); Potassium 3.5 mmol/L (3.5-5.1); Sodium 136 mmol/L (136-145); Total Protein 7.6 g/dL (6.4-8.2)
[2024-09-26 10:16] LABS: Free T4 1.24 ng/dL (0.76-1.46)
[2024-09-26 10:21] LABS: Magnesium 1.9 mg/dL (1.8-2.4)
--- NOTE | 2024-09-26 11:30 | PC.NURSE ---
1030: Dr. Chester placing chemo on hold due to elevated creatinine level. Awaiting to speak with [facility] before proceeding. Instructs this RN to hold Procrit and administer NS 1 liter IV. Pt. notified, relays understanding.
--- NOTE | 2024-09-26 11:42 | PC.NURSE ---
1140: Up to bathroom to void. IV NS cont. to infuse. Denies needs or c/o.
[2024-09-26 12:05] VITALS: BP 153/84; PULSE 57; O2SAT 96
[2024-10-03 09:05] VITALS: BP 169/92; PULSE 58; TEMP 36.4; O2SAT 98
[2024-10-03 09:34] LABS: Basophils Percent Auto 0.3 % (0.2-2.0); Eosinophils Percent Auto 0.6 % (0.9-7.0); Hematocrit 33.4 % (36.0-48.0); Hemoglobin 10.6 g/dL (12.0-16.0); Immature Granulocytes Abs Auto 0.03 10^3/uL (0.00-0.03); Immature Granulocytes Pct Auto 0.4 % (0.0-0.5); Lymphocytes Absolute Auto 1.6 10^3/uL (1.2-3.8); Mean Corpuscular HGB Conc 31.7 g/dL (29.9-35.2); Mean Corpuscular Hemoglobin 31.1 pg (26.7-34.0); Mean Corpuscular Volume 97.9 fL (81.0-99.0); Mean Platelet Volume 13.1 fL (9.5-13.5); Monocytes Absolute Auto 1.3 10^3/uL (0.3-0.8); Monocytes Percent Auto 18.7 % (1.7-12.0); Neutrophils Absolute Auto 3.8 10^3/uL (1.4-6.5); Platelet Count 203 10^3/uL (150-450); Red Blood Count 3.41 10^6/uL (4.20-5.40); White Blood Count 6.8 10^3/uL (4.0-11.0)
[2024-10-03 09:53] LABS: Alanine Aminotransferase 32 U/L (14-59); Albumin Globulin Ratio 0.8; Albumin Level 3.6 g/dL (3.4-5.0); Alkaline Phosphatase 86 U/L (46-116); Anion Gap 10.5; Aspartate Amino Transferase 20 U/L (15-37); BUN Creatinine Ratio 15.4; Bilirubin Total 0.2 mg/dL (0.2-1.0); Calcium 9.3 mg/dL (8.5-10.1); Carbon Dioxide 28.4 mmol/L (21.0-32.0); Chloride 103 mmol/L (98-107); Estimated GFR (African America 38 (>=60 mL/min/1.73m^2); Estimated GFR (Non-African Ame 32 (>=60 mL/min/1.73m^2); Globulin 4.3 g/dL; Glucose 117 mg/dL (74-106); Magnesium 1.9 mg/dL (1.8-2.4); Potassium 3.9 mmol/L (3.5-5.1); Sodium 138 mmol/L (136-145); Total Protein 7.9 g/dL (6.4-8.2)
[2024-10-03] MEDS: DEXAMETHASONE SODIUM PHOSPHATE 10 MG in 0.9 % SODIUM CHLORIDE 100 ML 303 MG IV (11:16)
[2024-10-03] MEDS: DENOSUMAB 120 MG/1.7 ML VIAL SQ (11:22)
[2024-10-03] MEDS: HEPARIN SODIUM (PORCINE) PF LOCK FLUSH 500 UNIT/5 ML SYRINGE IV (12:02)
--- NOTE | 2024-10-03 12:02 | PC.NURSE ---
1202: Dr. Chester in to see patient.
[2024-10-03 12:05] VITALS: BP 158/70; PULSE 60; TEMP 36.5; O2SAT 98
[2024-10-17 10:00] VITALS: BP 162/83; PULSE 73; TEMP 36.7; O2SAT 98
[2024-10-17 10:34] LABS: Alanine Aminotransferase 27 U/L (14-59); Albumin Globulin Ratio 0.9; Albumin Level 3.5 g/dL (3.4-5.0); Alkaline Phosphatase 87 U/L (46-116); Anion Gap 12.4; Aspartate Amino Transferase 31 U/L (15-37); BUN Creatinine Ratio 10.1; Bilirubin Total 0.2 mg/dL (0.2-1.0); Calcium 8.5 mg/dL (8.5-10.1); Carbon Dioxide 25.5 mmol/L (21.0-32.0); Chloride 105 mmol/L (98-107); Estimated GFR (African America 34 (>=60 mL/min/1.73m^2); Estimated GFR (Non-African Ame 28 (>=60 mL/min/1.73m^2); Globulin 3.9 g/dL; Glucose 103 mg/dL (74-106); Potassium 3.9 mmol/L (3.5-5.1); Sodium 139 mmol/L (136-145); Total Protein 7.4 g/dL (6.4-8.2)
[2024-10-17 12:02] LABS: Hematocrit 27.3 % (36.0-48.0); Hemoglobin 8.9 g/dL (12.0-16.0); Mean Corpuscular HGB Conc 32.6 g/dL (29.9-35.2); Mean Corpuscular Hemoglobin 30.7 pg (26.7-34.0); Mean Corpuscular Volume 94.1 fL (81.0-99.0); Mean Platelet Volume 12.2 fL (9.5-13.5); Red Cell Distribution Width 13.8 % (11.0-15.0); White Blood Count 2.3 10^3/uL (4.0-11.0)
[2024-10-17 12:09] LABS: Lymphocytes Absolute Manual 0.92 10^3/uL (1.20-3.80); Platelet Count 59 10^3/uL (150-450); Segmented Neut Absolute Manual 0.94 10^3/uL (1.4-6.5)
[2024-10-17 12:10] LABS: Basophils Abs Manual 0.02 10^3/uL (0.00-0.10); Monocytes Absolute Manual 0.34 10^3/uL (0.30-0.80)
[2024-10-17] MEDS: EPOETIN ALFA 20,000 UNIT/2 ML VIAL 40000 UNIT SUBQ (12:47)
[2024-10-17] MEDS: HEPARIN SODIUM (PORCINE) PF LOCK FLUSH 500 UNIT/5 ML SYRINGE IV (12:59)
--- NOTE | 2024-10-17 14:15 | PC.NURSE ---
1040: Partial labs resulted at this time. Given water. Denies needs.
--- NOTE | 2024-10-17 14:26 | PC.NURSE ---
1247: Pt. medicated with Procrit as ordered for Hgb < 10. Injected in bilat arms. Trace bleeding to sites, Bandaids applied. Pt. tolerated without c/o. Dr. Chester in to speak with patient and determine plan of care.
== END 2024-10-18 07:57 | disposition home or self-care (01) ==
LOC: HEMC 11:30
PROVIDERS: PCP Family Medicine; Visit Provider Internal Medicine Hematology & Oncology
DX: Z51.11 Encounter for antineoplastic chemotherapy (principal); C34.11 Malignant neoplasm of upper lobe, right bronchus or lung; C77.1 Secondary and unspecified malignant neoplasm of intrathoracic lymph nodes; C78.7 Secondary malignant neoplasm of liver and intrahepatic bile duct; C79.51 Secondary malignant neoplasm of bone; D69.6 Thrombocytopenia, unspecified; D70.1 Agranulocytosis secondary to cancer chemotherapy; Z79.899 Other long term (current) drug therapy; R11.2 Nausea with vomiting, unspecified; D64.81 Anemia due to antineoplastic chemotherapy; D50.9 Iron deficiency anemia, unspecified; K90.9 Intestinal malabsorption, unspecified; Z86.16 Personal history of COVID-19; Z63.4 Disappearance and death of family member; Z90.710 Acquired absence of both cervix and uterus; R05.3 Chronic cough
CPT/HCPCS: 36415; 36591; 80053; 83735; 84439; 84443; 85007; 85025; 85027; 87040; 96367; 96372; 96413; G0463; J0885; J0897; J1100; J1642; J9305

== ENCOUNTER 2024-11-13 14:52 | Outpatient (OUT) | payer MEDICARE, SELFPAY ==
--- NOTE | 2024-11-13 14:55 | PE_ITS ---
The [address] [address] Patient Name: JASON DE LA ROSA MRN: [id number] date: 1955 Sex: F Assigned Patient Location: PETCT Current Patient Location: [facility] Accession/Order Number: [id number] Exam Date: 11/14/2024 23:26 Report Date: 11/15/2024 00:20 At the request of: MIYA ALAN MD Procedure: PET skull to mid thigh PET/CT WITH FUSION CLINICAL DATA: Restaging lung cancer COMPARISON: 07/10/2024 Following the intravenous administration of 13.36 mCi of FDG, SPECT imaging in 3 planes was performed from the level the orbits through the groin. Patient's blood glucose level at the time of injection was 97 mg/dL. Spiral unenhanced CT was also performed for anatomic localization. The PET and CT images were fused. This CT exam was performed using one or more following dose reduction techniques: Automated exposure control, adjustment of the mA and/or kV according to patient size, or use of iterative reconstruction technique. NECK: No pathologically enlarged or hypermetabolic lymph nodes are seen. There is continued diffuse bilateral thyroid uptake, similar to the comparison. CHEST: There is opacity at the right upper lung which is unchanged on the CT studies. FDG uptake at that site has decreased from SUV of 4.5 down to 3.4. There are no developing areas of abnormal hypermetabolism involving the lungs. There is still a right hilar lymph node with increased FDG uptake and SUV of 6.9. Uptake was previously 6.0 at this site. No other hypermetabolic adenopathy is seen. ABDOMEN/PELVIS: There is no abnormal hypermetabolism associated with the liver or adrenal glands. No enlarged or hypermetabolic abdominal or pelvic lymph nodes are seen. There is physiologic activity involving the urinary tract. SKELETAL: Multiple sclerotic bone lesions are again seen on CT exam. Most are no longer hypermetabolic. There is still increased FDG uptake at the left iliac bone with decrease in SUV from 12 to 5.5. There is borderline residual increased FDG uptake associated with the anterolateral left second rib with SUV of 2.7, previously 8.5. There is a focus of increased uptake at the central maxilla with SUV of 5.2 which is minimally more prominent. PET/PET skull to mid thigh IMPRESSION: RIGHT UPPER LOBE OPACITY WITH CONTINUED DECREASE IN FDG UPTAKE. PERSISTENT FDG AVID RIGHT HILAR LYMPH NODE. OVERALL IMPROVEMENT OF HYPERMETABOLISM ASSOCIATED WITH BONE LESIONS. SIMILAR DIFFUSE THYROID FDG UPTAKE. Impression dictated by: Yasmin Maier M.D.11/15/2024 12:20 AM Dictation Location: [place] [address] Electronically authenticated by: [id number] Y Date: 11/15/2024 00:20
--- OUTSIDE RECORDS SUMMARY | 2024-11-13 15:16 | XMS_ITS | CCD ---
Author Organization [facility] Care Team Providers Care Teradata Developer Name Role Phone DR BRENDA BAKER Primary Care Unavailable LETITIA, DR GUTIERREZ Admitting Unavailable LETITIA, DR GUTIERREZ Attending Unavailable LETITIA, DR GUTIERREZ Consulting Unavailable WEST, DR JOAQUIM Ashton Consulting Unavailable LETITIA, DR GUTIERREZ Primary Care Unavailable LETITIA, DR GUTIERREZ Admitting Unavailable LETITIA, DR GUTIERREZ Attending Unavailable LETITIA, DR GUTIERREZ Consulting Unavailable MELANIA, DR CARIE Edwards Consulting Unavailable [facility], DO Zabala Attending Provider ROM MELTON Referring Unavailable ROM MELTON Referring Unavailable ROM MELTON Attending Unavailable ROM MELTON Referring Unavailable Brenda Baker MD Primary Care Provider Brenda Baker Primary Care Physician Samsa - TBHVj Admitting Unavailable Samsa - TBHVj Attending Unavailable Kristi Chester Attending Unavailable Kristi Chester Admitting Unavailable Kristi Chester MD Attending Provider Kristi Chester MD Unavailable [phone] Bhupendra ROLLINS Attending Unavailable Bhupendra ROLLINS Attending Unavailable Bhupendra ROLLINS Attending Unavailable NEMO KRISTI Attending Unavailable NEMO KRISTI Referring Unavailable BRENDA BAKER Primary Care Unavailable MOOKIE POWELL Admitting Unavailable Kristi Chester MD Attending Provider [phone] Sarah Elkins RN Unavailable Unavailable Naun WALDROP, Ana Unavailable Unavailable MINERVA SHAFER Attending Unavailable KRISTI CHESTER Referring Unavailable BRENDA BAKER Primary Care Unavailable Allergies Allergy Classification Reported Allergen(s) Allergy Type Date of Onset Reaction(s) Facility (1 source) ALLERGIES NOT ON FILE; Translations: [ALLERGIES NOT ON FILE] Propensity to adverse reactions (disorder) [facility] Repository (1 source) No Known Medication Allergies; Translations: [No Known Medication Allergies] Propensity to adverse reactions (disorder) [facility] Repository Medications Current Medications Medication Drug Class(es) Dates Sig (Normalized) Sig (Original) apixaban 5 mg oral tablet (1 source) Factor Xa Inhibitor Start: 10-09-2024 take 1 tablet by mouth twice daily Apixaban (Eliquis) 5 mg tablet Active 5 MG PO Twice daily October 09, 2024 12:00am dexamethasone 2 mg oral tablet (2 sources) Corticosteroid Start: 07-05-2024 take 1 tablet by mouth once daily Dexamethasone 2 mg tablet Active 2 MG PO Daily July 05, 2024 1:00am 72 hr fentaNYL 0.025 mg/hr transdermal system (9 sources) Opioid Agonist Start: 07-05-2024 Fentanyl 25 mcg/hr patch 72 hour Active 1 PATCH TRANSDERML Every 72 hours July 05, 2024 1:00am Start: 05-18-2024 fentaNYL 25 mc g/hr Transderm ER Film 1 patch(es), Topical, q72hr, Refill(s) 0 Start Date: 05/18/24 Status: Ordered ibuprofen 600 mg oral tablet (5 sources) Nonsteroidal Anti-inflammatory Drug Start: 06-13-2024 take 1 tablet by mouth every twelve hours as needed ibuprofen (MOTRIN) 600 mg tablet Take 600 mg by mouth two times a day as needed for pain. 06/13/2024 Active levothyroxine sodium 0.075 mg oral tablet (6 sources) l-Thyroxine Start: 08-30-2024 take 1 tablet by mouth once daily levothyroxine 75 mcg (0.075 mg) Tab 75 mcg = 1 tab(s), Oral, Daily, Refills(s) 0 Start Date: 08/30/24 Status: Ordered Start: 08-03-2024 take 1 tablet by alexander th once daily levothyroxine (SYNTHROID) 75 mcg tablet Take 75 mcg by mouth once daily. 08/03/2024 Active magnesium oxide 400 mg oral tablet (8 sources) Start: 08-30-2024 take 2 tablets by mouth once daily magnesium oxide 400 mg Tab 800 mg = 2 tab(s), Oral, Daily, Refills(s) 0 Start Date: 08/30/24 Status: Ordered Start: 08-04-2024 take 1 capsule by [facility] twice daily magnesium oxide 400 mg magnesium cap Take 400 mg by mouth two times a day. 08/04/2024 Active Start: 08-03-2024 take 1 tablet by alexander twice daily Magnesium Oxide 250 mg magnesium tablet Active 250 MG PO Twice daily August 03, 2024 1:00am metoprolol tartrate 50 mg oral tablet (8 sources) beta-Adrenergic Inez Start: 08-02-2024 take 1 tablet by mouth twice daily metoprolol tartrate, short acting, (LOPRESSOR) 50 mg tablet Take 50 mg by mouth two times a day. 08/02/2024 Active Multivitamin preparation (1 source) Start: 05-18-2024 take 1 tablet by mouth once daily multivitamin 1 tab(s), Oral, Daily, Refill(s) 0 Start Date: 05/18/24 Status: Ordered multivitamin tablet (5 sources) take 1 tablet by mouth once daily in the morning multivitamin tablet Take 1 tablet by mouth every morning. Active ondansetron 4 mg disintegrating oral tablet (9 sources) Serotonin-3 Receptor Antagonist Start: 07-05-2024 take 1 tablet by mouth twice daily as needed Ondansetron 4 mg tablet,disintegra ting Active 4 MG PO Twice daily as needed July 05, 2024 1:00am Start: 05-25-2024 take 1 tablet by alexander every eight hours as needed ondansetron orally disintegrating (ZOFRAN ODT) 4 mg disintegrating tablet Take 4 mg by mouth every 8 hours as needed for nausea/vomiting. 05/25/2024 Active potassium chloride 20 meq extended release oral tablet (7 sources) Start: 07-05-2024 take 1 tablet by mouth once potassium chloride 20 mEq TbER Take 1 tablet by mouth every afternoon. 07/11/2024 Active predniSONE 10 mg oral tablet (2 sources) Start: 08-03-2024 Prednisone 10 mg tablet Active 10 MG PO As Directed August 03, 2024 1:00am see taper instructions prochlorperazine 10 mg oral tablet (9 sources) Phenothiazine Start: 04-20-2024 take 1 tablet by mouth every eight hours as needed prochlorperazine (COMPAZINE) 10 mg tablet Take 10 mg by mouth every 8 hours as needed for nausea/vomiting. 04/20/2024 Active Start: 04-20-2024 take 1 tablet by alexander th twice daily as needed Prochlorperazine Maleate (Compazine) 10 mg tablet Active 10 MG PO Twice daily as needed August 03, 2024 1:00am Completed/Discontinued Medications Medication Drug Class(es) Dates Sig (Normalized) Sig (Original) acetaminophen 300 mg / codeine phosphate 30 mg oral tablet (4 sources) Opioid Agonist Start: 07-05-2024 End: 10-09-2024 take 2 tablets by mouth every eight hours as needed Acetaminophen-Codei ne 300-30 mg tablet Discontinued 2 TAB PO Every 8 hours as needed July 05, 2024 1:00am October 09, 2024 3:25pm Start: 05-18-2024 acetaminophen- codeine 300 mg-30 mg Tab Refill(s) 0, oral, 0 Refill(s), Take by mouth. Start Date: 05/18/24 Status: Ordered Problems Problem Classification Problem Date Documented Date Episodic/Chronic Acute and unspecified renal failure (6 sources) Acute renal failure syndrome; Translations: [Acute kidney failure, unspecified] Onset: 09-13-2024 07-05-2024 Episodic Cancer of bronchus; lung (11 sources) Malignant neoplasm of unspecified part of unspecified bronchus or lung; Translations: [Malignant neoplasm of upper lobe, bronchus or lung] Onset: 04-06-2024 Chronic Coagulation and hemorrhagic disorders (2 sources) Acquired thrombocytopenia 05-18-2024 Chronic Diseases of white blood cells (2 sources) Neutropenia 05-18-2024 Chronic Fluid and electrolyte disorders (5 sources) Hypokalemia; Translations: [Hypokalemia] 07-05-2024 Episodic Lymphadenitis (2 sources) Localized enlarged lymph nodes; Translations: [Localized enlarged lymph nodes] Onset: 04-06-2024 Episodic Nonspecific chest pain (4 sources) Other chest pain; Translations: [OTHER CHEST PAIN] Onset: 06-10-2021 Episodic Other aftercare (1 source) Procedure carried out on subject; Translations: [Encounter for adjustment and management of vascular access device] Onset: 08-30-2024 Episodic Other circulatory disease (2 sources) Difficult venous access 05-25-2024 Episodic Other diseases of veins and lymphatics (1 source) Disorder of vein; Translations: [Other specified disorders of veins] Onset: 05-25-2024 Episodic Other nutritional; endocrine; and metabolic disorders (2 sources) Overweight 05-25-2024 Episodic Other nutritional; endocrine; and metabolic disorders (2 sources) Overweight in adulthood with body mass index of 25 or more but less than 30 05-25-2024 Episodic Residual codes; unclassified (1 source) Device in situ 08-30-2024 Episodic Secondary malignancies (2 sources) Secondary malignant neoplasm of bone 05-18-2024 Chronic Superficial injury; contusion (4 sources) Contusion of left knee, sequela; Translations: [CONTUSION OF LEFT KNEE SEQUELA] Onset: 08-08-2021 Episodic Results Test Name Value Interpretation Reference Range Facility [facility] 11-07-2024 [facility] Telephone (HEMCA3) ISELA DE LA ROSA ([id number]) 1955 F Date Time Provider Department 11/07/24 MINERVA SHAFER HEMCA3 During your visit today, we recorded the following information about you: Yvette Bassett 11/07/2024 11:50 AM Signed Isela De La Rosa('s) caregiver: Dr. Chester's office is calling Minerva Shafer MD today regarding Home Care Aide - Other Dr. Chester's office called to see if Dr. Shafer requested the pathology slides for patient's kidney biopsy yet to review. If not, could he do so, per the conversation both doctor's had previously. If request hasn't been made yet, it should be sent to [facility], pathology lab Patient has been identified by name and birthdate. Yvette Bassett November 07, 2024 Sarah Elkins, PALMA 11/10/2024 2:16 PM Signed Pathology slides for patient's kidney biopsy have been sent to [facility] pathology lab per request from Dr. Chester by administrative receptionist Tatiana. Sarah Elkins, RN Specialty Home Care Aide [facility] Allergies As of Date: 11/07/2024 (No Known Allergies) Date Reviewed: 08/21/2024 Reviewed by: Dashawn Chen LPN - Fully Assessed Reason for Visit: Home Care Aide - Other [3602] Prescriptions as of 11/10/2024 - fentaNYL (DURAGESIC) 25 mcg/hr Apply 1 Patch as directed every 72 hours. - ibuprofen (MOTRIN) 600 mg tablet Take 600 mg by mouth two times a day as needed for pain. - levothyroxine (SYNTHROID) 75 mcg tablet Take 75 mcg by mouth once daily. - magnesium oxide 400 mg magnesium cap Take 400 mg by mouth two times a day. - metoprolol tartrate, short acting, (LOPRESSOR) 50 mg tablet Take 50 mg by mouth two times a day. - multivitamin tablet Take 1 tablet by mouth every morning. - potassium chloride 20 mEq TbER Take 1 tablet by mouth every afternoon. - prochlorperazine (COMPAZINE) 10 mg tablet Take 10 mg by mouth every 8 hours as needed for nausea/vomiting. - ondansetron orally disintegrating (ZOFRAN ODT) 4 mg disintegrating tablet Take 4 mg by mouth every 8 hours as needed for nausea/vomiting. Problem List As Of Date: 11/07/2024 (None) Encounter Status:Closed by SARAH ELKINS on 11/10/24 [facility] 10-17-2024 [facility] Telephone (HEMACA) ISELA DE LA ROSA ([id number]) 1955 F Date Time Provider Department 10/17/24 MINERVA SHAFER During your visit today, we recorded the following information about you: Tatiana Sow 10/17/2024 11:30 AM Signed Isela De La Rosa('s) Anay/Dr. Chester's office is calling Minerva Shafer MD today regarding Home Care Aide - Other (Speak to nurse ) Anay called to speak with provider's nurse regarding patient. Sent secure chat to Hanna. Alvarado. Patient has been identified by name and birthdate. Requesting response back: [phone] (home) [phone] (cell) Tatiana Sow October 17, 2024 Ana Riojas RN 10/17/2024 11:44 AM Signed Received a call from Dr. Chester's office. Dr. Chester would like to discuss Isela's treatment plan and elevated kidney function, to coordinate a new plan for her. Let Dr. Chester know that Dr. Toro is covering for Dr. Shafer. Message sent to Dr. Toro with request to return Dr. Chester's phone call. Ana Riojas MSN, RN Specialty Home Care Aide October 17, 2024 Allergies As of Date: 10/17/2024 (No Known Allergies) Date Reviewed: 08/21/2024 Reviewed by: Dashawn Chen LPN - Fully Assessed Reason for Visit: Care Coordination [5448] Prescriptions as of 10/17/2024 - fentaNYL (DURAGESIC) 25 mcg/hr Apply 1 Patch as directed every 72 hours. - ibuprofen (MOTRIN) 600 mg tablet Take 600 mg by mouth two times a day as needed for pain. - levothyroxine (SYNTHROID) 75 mcg tablet Take 75 mcg by mouth once daily. - magnesium oxide 400 mg magnesium cap Take 400 mg by mouth two times a day. - metoprolol tartrate, short acting, (LOPRESSOR) 50 mg tablet Take 50 mg by mouth two times a day. - multivitamin tablet Take 1 tablet by mouth every morning. - potassium chloride 20 mEq TbER Take 1 tablet by mouth every afternoon. - prochlorperazine (COMPAZINE) 10 mg tablet Take 10 mg by mouth every 8 hours as needed for nausea/vomiting. - ondansetron orally disintegrating (ZOFRAN ODT) 4 mg disintegrating tablet Take 4 mg by mouth every 8 hours as needed for nausea/vomiting. Problem List As Of Date: 10/17/2024 (None) Encounter Status:Closed by ANA RIOJAS on 10/17/24 Normal [facility] IR BIOPSY RENAL PERC RTon IR BIOPSY RENAL PERC RT IR BIOPSY RENAL PERC RT Indication: Acute kidney injury. Consent: Informed consent was obtained by myself from the alert and oriented patient. Patient understands procedure and all of her questions were answered. Timeout: Reliance timeout verification procedure was performed. Moderate sedation: The patient's cardiopulmonary status was evaluated and the patient is suitable for moderate sedation. During the course of the procedure, the patient was sedated with Sublimaze 50 mcg intravenously and Versed 0.5 MG intravenously while being monitored with ECG, blood pressure monitoring, and pulse oximeter by appropriately trained personnel. 30 minutes of [id number] moderate sedation was provided by the same physician. Following the procedure, the patient was recovered according to the moderate sedation policy. Sterile Technique: elements of maximal sterile barrier were followed including cap, mask, gown, gloves, hand hygiene, and 2% chlorohexidine for cutaneous antisepsis. PROCEDURE: Noncontrast CT images were obtained through lower pole kidneys. Automatic exposure control was utilized. Spot for needle passage was selected over lower pole right kidney. Overlying skin was prepped and draped in normal sterile fashion and anesthetized 1% lidocaine. 18-gauge Bard guide needle was advanced to the lower pole right kidney. Once needle was in satisfactory position multiple core biopsies were obtained. This was submitted to pathology and deemed adequate per pathology. Gelfoam slurry was injected through the guiding needle prior to its removal. Very small amount of perinephric bleeding present. Patient tolerated the procedure well without significant immediate complication. Estimated blood loss 10-15 mL. IMPRESSION: 1. Noncontrast CT guidance for biopsy lower pole right kidney with no significant immediate complication. Multiple noncontrast CT images were obtained for localization purposes. Finalized by Berna Penny MD on 09/13/2024 2:17 PM Normal [facility] PLATELET COUNT AND MPVon Platelet mean volume (Bld) [Entitic vol] 8.9 fL Normal 7-12 [facility] Comment on above: Performed By: #### 1 4979-9, PLTCT, PINR #### [facility] ([id number]) [address] [place] [address] Platelets (Bld) [#/Vol] 159 10*3/uL Normal 150-450 [facility] Comment on above: Performed By: #### 1 4979-9, PLTCT, PINR #### [facility] ([id number]) [address] [place] [address] PROTIME AND INRon 09-13-2024 INR Coag (PPP) [Relative time] 1.0 {INR} Normal 0.8-1.1 [facility] Comment on above: Performed By: #### 1 4979-9, PLTCT, PINR #### [facility] ([id number]) [address] [place] [address] PT Coag (PPP) [Time] 11.1 s Normal 9.8-13.2 [facility] Comment on above: Performed By: #### 1 4979-9, PLTCT, PINR #### [facility] ([id number]) [address], [address] [place] [id number] Surgical Pathologyon 025 Surgical Pathology Normal [facility] Comment on above: Result Comment: [facility] [address] [place] [address] Surgical Pathology Consultation ADDENDUM CO Patient Name:PAT DE LA ROSAB:1955 (Age: 69)Gender:FTaken:09/13/2024Reported:09/19/2024Physician(s):Kristi Chester ([phone])Copy To:Berna Penny M.D. Rec. #:[id number]: #[id number] Final Pathologic Diagnosis Kidney, needle biopsy: Mild acute tubular injury with mild interstitial nephritis. See comment. Comment: There is no evidence of an immune complex-mediated glomerular disease by immunofluorescence. The biopsy shows mild acute tubular injury with mild interstitial nephritis. The mild interstitial nephritis is characterized by patchy lymphoplasmacytic interstitial inflammation with focal mild tubulitis. In the background, there is mild tubular atrophy and interstitial fibrosis. Given the clinical history, these findings likely represent drug-induced acute tubular injury and interstitial nephritis with treatment effect. Electron microscopy is pending, and the result will be reported in an addendum. NOTE: The above diagnosis and comment is from Julieta Sanford M.D., Ph.D., [facility], [place], [place]. Please see the complete report in the patient's EMR. Report Electronically Signed Out [facility]/09/19/2024ndadina Foley MD Addendum ([facility]) Date Reported: 09/20/2024 Results of electron microscopy are received from Julieta Sanford M.D., Ph.D., [facility], [place], [place] and are as follows: Impression: Kidney, needle biopsy: Mild acute tubular injury with mild interstitial nephritis. Please see the complete report from [facility] in the patient's EMR. Electronically Signed Out Cipriano Foley MD [place] [address], License number: [id number]. Clinical History LEIDA (acute kidney injury). Gross Description Received fresh in CT from a [place] right kidney are 4 meeks core biopsies ranging in size from 0.5 cm to 0.9 cm in length. The tissue is divided into 10% formalin and Julio César's media. The specimens are sent to [facility] for processing. (GROSS ONLY) . [facility]/09/13/2024O Intraoperative Consultation Rapid onsite evaluation: Adequate glomeruli, over 4 cores. - AO Interpretation provided at [facility], [address] [place] [address] Specimen(s) Received Right [place] kidney biopsy Fee Codes(s): 1; 28581, 14363 aPTT Coag (PPP) [Time]on aPTT Coag (Bld) [Time] 30 s Normal 26-37 [facility] Comment on above: Performed By: #### 1 4979-9, PLTCT, PINR #### [facility] ([id number]) [address] [place] [address] Ambulatory Visit Summaryon 0 08-30-2024 Ambulatory Visit Summary Ambulatory Visit Summary ISELA DE LA ROSA :1955 Visit Date:08/30/2024 Ambulatory Visit Instructions Your Care Team Attending Physician - RIA BAILEY, Bhupendra Edwards Primary Care Physician - Letitia BAILEY, Brenda This Is Your Medications List acetaminophen-codeine (acetaminophen-codeine 300 mg-30 mg Tab) fentanyl (fentaNYL 25 mcg/hr Transderm ER Film) levothyroxine (levothyroxine 75 mcg (0.075 mg) Tab) magnesium oxide (magnesium oxide 400 mg Tab) metoprolol (Metoprolol tartrate 50 mg Tab) ondansetron (ondansetron 4 mg Dis Tab) prochlorperazine (prochlorperazine 10 mg Tab) Procedures Performed Insertion of implantable venous access port (08/16/2024), Bronchoscopy (04/06/2024), section, section, Nerve transposition, Repair of inguinal hernia, HORACIO BSO - Total abdominal hysterectomy and bilateral salpingo-oophorectomy. Medications What How Much When Instructions Unchanged acetaminophen-codeine (acetaminophen-codeine 300 mg-30 mg Tab) oral, 0 Refill(s), Take by mouth. Unchanged fentanyl (fentaNYL 25 mcg/ hr Transderm ER Film) 1 Patches Topical Every 72 hours Unchanged levothyroxine (levothyroxine 75 mcg (0.075 mg) Tab) 1 Tablets By Mouth Every day Unchanged magnesium oxide (magnesium oxide 400 mg Tab) 2 Tablets By Mouth Every day Unchanged metoprolol (Metoprolol tartrate 50 mg Tab) 1 Tablets By Mouth 2 times a day Unchanged ondansetron (ondansetron 4 mg Dis Tab) 1 Tablets By Mouth Every 8 hours as needed for Nausea/Vomiting Unchanged prochlorperazine (prochlorperazine 10 mg Tab) 10 Unknown, Oral, 0 Refill(s) Allergies No Known Allergies No Known Medication Allergies Problems Ongoing - Any problem that you are currently receiving treatment for. Acquired thrombocytopenia Adenocarcinoma of upper lobe of right lung BMI 26.0-26.9,adult Bone neoplasm secondary Neutropenia Overweight Poor venous access Patient Survey You may receive a survey via text or e-mail asking about your office visit. Please share your experience with us by completing your survey. We appreciate your feedback and thank you for choosing us for your care. Normal [facility] General Surgery Office/Clini c Noteon 08-30-2024 General Surgery Office/Clinic Note General Surgery Office/Clinic Note Chief Complaint post operative follow up HPI Staff 14 day post operative follow up post Ullffn-s-dszl insertion. Denies discomfort, no use of pain medication. Denies bleeding or drainage. Port has been accessed without incident. History of Present Illness 2 weeks s/p right external jugular yzgbaq-d-cyow insertion; doing well; port working well, no pain or drainage. Review of Systems PHQ Score Initial Depression [...] and are negative or noncontributory. Physical Exam skin: incisions without erythema or drainage, no ecchymoses. Assessment/Plan 1. Encounter for care related to Port-a-Cath (Z45.2: Encounter for adjustment and management of vascular access device) healing well, call with problems/questions. Follow-up No qualifying data available Problem List/Past Medical History Ongoing Acquired thrombocytopenia Adenocarcinoma of upper lobe of right lung BMI 26.0-26.9,adult Bone neoplasm secondary Encounter for care related to Port-a-Cath Neutropenia Overweight Poor venous access Historical No qualifying data Procedure/Surgical History Insertion of implantable venous access port (08/16/2024), Bronchoscopy (04/06/2024), section, section, Nerve transposition, Repair of inguinal hernia, HORACIO BSO - Total abdominal hysterectomy and bilateral salpingo-oophorectomy. Medications acetaminophen-codeine 300 mg-30 mg Tab fentaNYL 25 mcg/hr Transderm ER Film, 1 patch(es), Topical, q72hr levothyroxine 75 mcg (0.075 mg) Tab, 75 mcg= 1 tab(s), Oral, Daily magnesium oxide 400 mg Tab, 800 mg= 2 tab(s), Oral, Daily Metoprolol tartrate 50 mg Tab, 50 mg= 1 tab(s), Oral, BID ondansetron 4 mg Dis Tab, 4 mg= 1 tab(s), Oral, q8hr, PRN prochlorperazine 10 mg Tab Allergies No Known Allergies No Known Medication Allergies Social History Alcohol Never., 05/24/2024 Substance Abuse Never., 05/24/2024 Tobacco Never (less than 100 in lifetime) Tobacco Use:. Never Smokeless Tobacco Use:., 08/30/2024 Family History COPD: Father. Heart disease: Mother and Father. Immunizations Vaccine Date Status SARS-CoV-2 (COVID-19) mRNA BNT-162b2 vax 09/18/2020 Recorded SARS-CoV-2 (COVID-19) mRNA BNT-162b2 vax 08/28/2020 Recorded Normal [facility] Comment on above: Result Comment: Elec tronically Signed By: RIA BAILEY, Bhupendra King\Date and Time Signed: 08/30/24 13:56 EST CNPAmrita 08-25-2024 CNPN Telephone (HEMAMN) ISELA DE LA ROSA ([id number]) 1955 F Date Time Provider Department 08/25/24 MINERVA SHAFER HEMAMN During your visit today, we recorded the following information about you: Maksim StaplesSergo 08/25/2024 1:15 PM Signed Katie from Dr. Chester[facility] [place] states order for kidney biopsy needs to be placed [facility], they are not able to submit the order, must be done by [facility] facility. Patient has been identified by name and birthdate. Duration of symptoms: N/A Requesting response back: Katie can be reached at [phone] if needed. [phone] (home) [phone] (cell) Sergo Maksim Pss August 25, 2024 Sarah Elkins RN 08/25/2024 4:18 PM Signed Left message introducing self by name and title asking to return call. Sarah Elkins RN Specialty Home Care Aide [facility] Sarah Elkins RN 08/28/2024 10:26 AM Signed Received incoming call from Dr. Chester's office. Informed them that Dr. Shafer recommends she get biopsy done with her local established middleware systems architect. Sarah Elkins RN Specialty Home Care Aide [facility] Allergies As of Date: 08/25/2024 (No Known Allergies) Date Reviewed: 08/21/2024 Reviewed by: Dashawn Chen LPN - Fully Assessed Reason for Visit: Home Care Aide - Other [4684] Prescriptions as of 08/28/2024 - fentaNYL (DURAGESIC) 25 mcg/hr Apply 1 Patch as directed every 72 hours. - ibuprofen (MOTRIN) 600 mg tablet Take 600 mg by mouth two times a day as needed for pain. - levothyroxine (SYNTHROID) 75 mcg tablet Take 75 mcg by mouth once daily. - magnesium oxide 400 mg magnesium cap Take 400 mg by mouth two times a day. - metoprolol tartrate, short acting, (LOPRESSOR) 50 mg tablet Take 50 mg by mouth two times a day. - multivitamin tablet Take 1 tablet by mouth every morning. - potassium chloride 20 mEq TbER Take 1 tablet by mouth every afternoon. - prochlorperazine (COMPAZINE) 10 mg tablet Take 10 mg by mouth every 8 hours as needed for nausea/vomiting. - ondansetron orally disintegrating (ZOFRAN ODT) 4 mg disintegrating tablet Take 4 mg by mouth every 8 hours as needed for nausea/vomiting. Problem List As Of Date: 08/25/2024 (None) Encounter Status:Closed by SARAH ELKINS on 08/25/24 [facility] Tele[facility] (HEMCA3) ISELA DE LA ROSA ([id number]) 1955 F Date Time Provider Department 08/22/24 [facility] During your visit today, we recorded the following information about you: Yvette Bassett 08/22/2024 12:57 PM Signed Isela De La Rosa('s) caregiver: Dr. Chester's office is calling Minerva Shafer MD today regarding the suggestion of Dr. Shafer that patient have a biopsy on her kidney. Dr. Chester wants to know if Dr. Shafer is going to arrange this or does he want Dr. Chester to arrange it. Patient has been identified by name and birthdate. Requesting response back: [phone] - Dr. Chester's office Yvette Bassett August 22, 2024 Ana Riojas RN 08/22/2024 1:53 PM Signed Returned call and identified self by name and title. Called Dr. Chester's office and let them know that Dr. Shafer would like Dr. Chester to arrange the kidney biopsy. Ana Riojas, MSN, RN Specialty Home Care Aide August 22, 2024 Allergies As of Date: 08/22/2024 (No Known Allergies) Date Reviewed: 08/21/2024 Reviewed by: Dashawn Chen LPN - Fully Assessed Reason for Visit: Care Coordination [3491] Prescriptions as of 08/22/2024 - fentaNYL (DURAGESIC) 25 mcg/hr Apply 1 Patch as directed every 72 hours. - ibuprofen (MOTRIN) 600 mg tablet Take 600 mg by mouth two times a day as needed for pain. - levothyroxine (SYNTHROID) 75 mcg tablet Take 75 mcg by mouth once daily. - magnesium oxide 400 mg magnesium cap Take 400 mg by mouth two times a day. - metoprolol tartrate, short acting, (LOPRESSOR) 50 mg tablet Take 50 mg by mouth two times a day. - multivitamin tablet Take 1 tablet by mouth every morning. - potassium chloride 20 mEq TbER Take 1 tablet by mouth every afternoon. - prochlorperazine (COMPAZINE) 10 mg tablet Take 10 mg by mouth every 8 hours as needed for nausea/vomiting. - ondansetron orally disintegrating (ZOFRAN ODT) 4 mg disintegrating tablet Take 4 mg by mouth every 8 hours as needed for nausea/vomiting. Problem List As Of Date: 08/22/2024 (None) Encounter Status:Closed by ANA RIOJAS on 08/22/24 [facility] CNOVSPon 08-21-2024 CNOVS Visit (SP) Office (HEMAMN) ISELA DE LA ROSA ([id number]) 1955 F Date Time Provider Department 08/21/24 10:00 AM MINERVA SHAFER During your visit today, we recorded the following information about you: Temperature Pulse Respiration Blood pressure 98.1 degrees 59/minute 20/minute 152/77 Dashawn Chen LPN 08/21/2024 3:09 PM Signed Additional intake questions: Has the patient had fever, nausea, vomiting, diarrhea, constipation, fatigue for > 1 week? Yes, fatigue and Provider Notified Does the patient have a decreased appetite? Yes, getting better Does patient want to see a Payroll Examiner? No (yes to any of above refer patient to schedulers for dietitian appointment) ) Does patient have any new or increased numbness or tingling of extremities? No Is patient interested in fertility information? No Does patient need any prescription refills? No Does patient have an advanced directive in place? Yes, no copy found in [facility] Patient referred to [facility] Electronically Signed By: AIDA Sweeney Khaled, MD 08/21/2024 3:09 PM Signed THORACIC ONCOLOGY NEW CONSULT VISIT ASSESSMENT: [id number], stage IVB NSCLC adenocarcinoma. PD-L 13% Molec negative. Status post 4 cycles of carboplatin pemetrexed and pembrolizumab. PLAN: I reviewed the diagnosis at length with Ms. De La Rosa and her family. Based on current scans and pathology reports you have a stage IV disease that was appropriately treated with combination chemoimmunotherapy utilizing carboplatin pemetrexed and pembrolizumab with good results based on latest PET scan in June. I acknowledged the worsening of renal function and would recommend nephrology consult and biopsy to determine the root cause of this failure. If it is due to immunotherapy, would recommend continuing with pemetrexed single agent. If it is due to pemetrexed, I would recommend continuing with pembrolizumab as a single agent. I would reserve shifting/switching treatment to docetaxel ramucirumab until there is true progression of disease. CC: Kristi Chester [address] [place], [place] [address]y [address] [facility] [address] Brenda Baker MD [address] [place] [place] [address] Chester for an opinion regarding Ms. Isela De La Rosa, and my final recommendations will be communicated back to the requesting physician by way of shared medical record or letter via US mail. HPI: Isela De La Rosa presents to [facility] today for thoracic oncology evaluation. She is a 69 year old female with stage IV NSCLC. Patient had a COVID infection in 2013 with a lingering cough that led to imaging. CT chest done in February 04, 2024 showed a 6.2 cm right upper lobe mass with mediastinal and hilar lymphadenopathy. She had bronchoscopy done with final pathology showing adenocarcinoma in the right upper lobe. Tumor was positive for cytokeratin 7 and Napsin; negative for cytokeratin 20 and p40. Guardant testing was positive for p53 mutation and RAF1 mutation. PD-L1 was 13%. Patient was started on carboplatin pemetrexed pembrolizumab April 18, 2024 and last cycle was given on July 11, 2024. Her creatinine had waxed and waned during this. Peaking at 1.84 on August 08. This decreased to 1.58 on August 15 after receiving a steroid Dosepak per patient. Currently patient is doing well with no major complaints. PAST MEDICAL HISTORY Diagnosis Date Adenocarcinoma of right lung (HCC) 2023 Hilar lymphadenopathy PAST SURGICAL HISTORY Procedure Laterality Date PAST SURGICAL HISTORY OF 02/2024 bronchoscopy PAST SURGICAL HISTORY OF Right right arm TOTAL ABDOM HYSTERECTOMY MEDICATIONS: fentaNYL (DURAGESIC) 25 mcg/hr Apply 1 Patch as directed every 72 hours. ibuprofen (MOTRIN) 600 mg tablet Take 600 mg by mouth two times a day as needed for pain. levothyroxine (SYNTHROID) 75 mcg tablet Take 75 mcg by mouth once daily. magnesium oxide 400 mg magnesium cap Take 400 mg by mouth two times a day. metoprolol tartrate, short acting, (LOPRESSOR) 50 mg tablet Take 50 mg by mouth two times a day. multivitamin tablet Take 1 tablet by mouth every morning. potassium chloride 20 mEq TbER Take 1 tablet by mouth every afternoon. prochlorperazine (COMPAZINE) 10 mg tablet Take 10 mg by mouth every 8 hours as needed for nausea/vomiting. ondansetron orally disintegrating (ZOFRAN ODT) 4 mg disintegrating tablet Take 4 mg by mouth every 8 hours as needed for nausea/vomiting. ALLERGIES: ALLERGIES No Known Allergies No family history on file. REVIEW OF SYSTEMS GENERAL: No fevers, chills, or nightsweats HEENT: No difficulty swallowing, ringing in the ears, nor blurry vision HEMATOLOGY/LYMPHOLOGY Negative for prolonged bleeding, bruising easily, lumps or swollen Lymph nodes. PULMONARY: Negative for cough, hemoptysis, wheezing, COPD, dyspnea or shortne (more content not included)... Normal [facility] Urine Cultureon 07-17-2024 Bacteria identified Cx Nom (U) No Growth 2 Days PERFORMED BY: ANTH[place]Y [place] [id number] PATHOLOGIST SHIPPING ASSISTANT ROM ELENA M.D. Normal [facility] Comment on above: Performed By: #### C UU #### [address] Urine cultureOrdered By: Rajat Chester on 07-17-2024 Bacteria identified Cx Nom (U) Urine culture [facility] Ambulatory Visit Summaryon 1 Ambulatory Visit Summary Ambulatory Visit Summary ISELA DE LA ROSA :1955 Visit Date:05/25/2024 Ambulatory Visit Instructions Your Care Team Attending Physician - RIA BAILEY, Bhupendra Edwards Primary Care Physician - Brenda Baker MD This Is Your Medications List Contact prescribing physician if questions or concerns acetaminophen-codeine (acetaminophen-codeine 300 mg-30 mg Tab) fentanyl (fentaNYL 25 mcg/hr Transderm ER Film) multivitamin ondansetron (ondansetron 4 mg Dis Tab) prochlorperazine (prochlorperazine 10 mg Tab) Procedures Performed Bronchoscopy (04/06/2024), section, section, Nerve transposition, Repair of inguinal hernia, HORACIO BSO - Total abdominal hysterectomy and bilateral salpingo-oophorectomy. Discharge Vitals Heart Rate (Peripheral) 81 Respiratory Rate 16 Blood Pressure 165/93 Height 157.4 cm Height 62 in Weight 64.8 kg Weight 142.56 lb BMI 26.16 Medications What How Much When Instructions Unchanged acetaminophen-codeine (acetaminophen-codeine 300 mg-30 mg Tab) oral, 0 Refill(s), [...] you [facility] --- Attestation signed by Rom Melton MD at 04/06/2024 11:16 AM Re-explained the procedure to the patient along with the associated risk of pneumothorax, bleeding, hypoxia, and respiratory failure. Patient is agreeable and will proceed with the scheduled bronchoscopy and EBUS TBNA Rom Melton MD Interventional Pulmonary Medicine Pulmonary and Critical Care Medicine [facility] Physicians History Of Present Illness 68 [...] will be sent to Dr. Nemo Rojas [facility] NON-HOME THEATER INSTALLER CYTOLOGY - CELLULAR EXAMon 04-06-2024 LAB AP ADDENDUM 1 Normal [facility] Comment on above: Result Comment: This case ([id number]) was sent to [employer] for the getbetter! 360 Tissue Next and PDL1 22C3 assays. The results read as follows: Detected Alterations and Biomarkers with Associated Treatment Options or Clinical Trials TP53: I195T RAF1: P261R Additional Biomarkers Tumor Mutational [place] (TMB): 4.0 mut/Mb MSI Status: Stable PD-L1 [...] sensitivity of the TissueNext test. See separate getbetter! [facility] report for a complete description with interpretive content and potential clinical trials. Addendum electronically signed by Linnea Palumbo MD on 2024 at 9:29 AM Performed By: #### L AB13 ####[facility] (BEAKER)[address] [place] [address] LAB AP CASE REPORT Normal [facility] Comment on above: Result Comment: Non- gynecologic Cytology Case: [id number] Authorizing Provider: Rom Melton MD Collected: 04/06/2024 1145 Ordering Location: [facility] Main Operating Room Received: 04/06/2024 1425 Pathologist: Linnea Palumbo MD Specimen: Lymph Node Station 4R Performed By: #### L AB13 ####[facility] (BEAKER)[address] [place] [address] LAB AP CLINICAL INFORMATION [facility] Comment on above: Result Comment: Hist ory of adenocarcinoma of the right upper lobe, molecular testing requested Performed By: #### L AB13 ####[facility] ([facility])[address] [place] [address] LAB AP DIAGNOSIS COMMENT There is a moderate amount of tumor cells present in the cell block for additional studies, if clinically indicated. [facility] Comment on above: Performed By: #### L AB13 ####[facility] ([facility])[address] [place] [address] LAB AP GROSS DESCRIPTION [facility] Comment on above: Result Comment: 2 ai r-dried slides, 2 alcohol-fixed slides, 30 mL CytoLyt with hazy, red fluid and clots Performed By: #### L AB13 ####[facility] ([facility])[address] [place] [address] LAB AP INTRAOPERATIVE CONSULTATION [facility] Comment on above: Result Comment: A. L ph Node Station 4R. Rapid on-site evaluation was [...] material submitted.* Performed By: #### L AB13 ####[facility] ([facility])[address] [place] [address] LAB AP MICROSCOPIC DESCRIPTION A. Satisfactory for evaluation. Examination of the prepared smears and cell block reveals numerous tumor cells arranged in clusters and as single cells with finely vacuolated cytoplasm, high n/c ratio, and enlarged nuclei with irregular chromatin and prominent nucleoli. [facility] Comment on above: Performed By: #### L AB13 ####[facility] ([facility])[address] [place] [address] LAB AP REPORT FINAL DIAGNOSIS NARRATIVE [facility] Comment on above: Result Comment: Stewart. Sravani ymph node, station 4R, EBUS-guided fine needle aspiration: - Metastatic adenocarcinoma. Performed By: #### L AB13 ####[facility] (BEAKER)[address] [place] [address] NURSNOTEon 04-06-2024 NURSNOTE Discharge instructio tai reviewed with patient sister at bedside. All questions answered at this time Cass Lucero MARKETING MANAGER [facility] NURSNOTE No chest xray needed post op at this time per Dr. Lorri Lucero MARKETING MANAGER [facility] POCT GLUCOSE METER UNSOLICIT ED RESULTSon 04-06-2024 Glucose [Mass/Vol] 104 mg/dL Normal 70-105 [facility] Comment on above: Order Comment: Waive d Testing in the ED is performed under the ED CLIA certificate #[id number]. Result Comment: ngro rodriguez Performed By: #### L [id number] #### [facility] (BEAKER) [address] [place] [address] Prep for Procedureon 024 Prep for Procedure [id number] Jud,Manjula na 1955 F Date Provider Department Center 04/04[facility]20[facility] No family history on file [facility] Abstracton 04-03-2024 Abstract [id number] JudManjula na 1955 F Date Provider Department Center 04/03/2024 [facility] No family history on file [facility] Orders Onlyon 04-03-2024 Orders Only [id number] Jud,Manjula na 1955 F Date Provider Department [place] 04/03/2024 [facility] No family history on file [facility] Umer 02-15-2024 L Specimen: [id number] Received: 02/16/24 Status: PEGGY Req Num: [id number] Spec Type: Surgical Subm Dr: Vj Glass DO Tissues: A Lung - Transbroncial Biopsy (RT UPPER LOBE MASS BX) Procedures: HE/2, Gross/Micro L4, CK5 6, CK20, CK 7, NAPSIN A, TTF1, IHC First AB, IHC Add AB/5, p40 Age/ Patient Sex Location Account Attending Physician Isela De La Rosa 68/F LABELL [id number] Vj Glass DO SPEC NUM: [id number] RECD: 02/16/24 STATUS: PEGGY REQ NUM: [id number] KIMBERLYN: 02/15/24 [facility] DR: Vj Glass DO ENTERED: 02/16/[address] [facility] [address]: Nadeem Nails SPEC TYPE: Surgical DEPT: [...] report. Addendum Signed (signature on file) Rom Elena MD 04/12/241909 Pathological Diagnosis Lesion, right lung, upper lobe, biopsy: Adenocarcinoma. Comment: Tumor cells are positive for cytokeratin 7 and Napsin, while being negative for cytokeratin 20, p40 and cytokeratin 5/6 immunostain. This immunoprofile is consistent with lung adenocarcinoma. Clinical correlation is required. Specimen: [id number] Received: 02/16/24 Status: PEGGY Abreu Num: [id number] Spec Type: Surgical Subm Dr: Vj Glass DO Tissues: A Lung - Transbroncial Biopsy (RT UPPER LOBE MASS BX) Procedures: HE/2, Gross/Micro L4, CK5 6, CK20, CK 7, NAPSIN A, TTF1, IHC First AB, IHC Add AB/5, p40 Patient: Isela De La Rosa [id number] (Continued) Specimen: [id number] Received: 02/16/24 (Continued) Signed (signature on file) Rom Elena MD 02/23/24 1658 Specimen: [id number] Received: 02/16/24 Status: PEGGY Abreu Num: [id number] Spec Type: Surgical Subm Dr: Vj Glass DO Tissues: A Lung - Transbroncial Biopsy (RT UPPER LOBE MASS BX) Procedures: HE/2, Gross/Micro L4, CK5 6, CK20, CK 7, NAPSIN A, TTF1, IHC First AB, IHC Add AB/5, p40 Patient: JudIsela [id number] (Continued) Specimen: [id number] Received: 02/16/24 (Continued) Clinical Information Abnormal bronchial mucosa of the right upper lobe Gross Description Received in formalin labeled with the patient's name, date of and right upper lobe mass biopsy are 3 delicate meeks tissue fragments ranging from 0.4 x 0.1 x 0.1 cm to 0.3 x 0.1 x 0.1 cm, entirely submitted in A1. CPT Codes 95354 58618 [id number] Specimen: [id number] Received: 02/16/24 Status: PEGGY Abreu Num: [id number] Spec Type: Surgical Subm Dr: Vj Glass DO Tissues: A Lung - Transbroncial Biopsy (RT UPPER LOBE MASS BX) Procedures: HE/2, Gross/Micro L4, CK5 6, CK20, CK 7, NAPSIN A, TTF1, IHC First AB, IHC Add AB/5, p40 Patient: Isela De La Rosa [id number] (Continued) Signed (signature on file) Rom Elena MD 02/23/24 6887 Normal [facility] L Specimen: [id number] Received: 02/16/24 Status: PEGGY Franco Num: [id number] Spec Type: Cytology Subm Dr: Vj Glass DO Tissues: A [facility] Procedures: HE/2, Gross/Micro L4, Cyto Prepstain, PAPSTN Age/ Patient Sex Location Account Attending Physician Isela De La Rosa 68/F LABELL [id number] Vj Glass DO SPEC NUM: [id number] RECD: 02/16/24 STATUS: PEGGY FRANCO NUM: [id number] KIMBERLYN: 02/15/[address]: Vj Glass DO ENTERED: 02/16/[address]: Nadeem Nails SPEC TYPE: Cytology DEPT: [facility] ENTERED BY: [id number] RECV BY: [id number] ORDERED: HE/2, Gross/Micro L4, Cyto Prepstain, PAPSTN ORDERED: HE/2, Gross/Micro L4, Cyto Prepstain, PAPSTN Pathological Diagnosis Right lung, bronchial washings: Negative for malignant cells. Clinical Information Right lung mass Gross Description Received fresh is 8 ml red cloudy unfixed fluid for cytology said to have been obtained as Right upper lobe lavage. ThinPrep and cell block preparations are prepared for microscopic examination.( WI/ks) CPT Codes 54771 Specimen: [id number] Received: 02/16/24 Status: KERIOswaldo Abreu Num: [id number] Spec Type: Cytology Subm Dr: Vj Glass DO Tissues: A [facility] Procedures: HE/2, Gross/Micro L4, Cyto Prepstain, PAPSTN Patient: Isela De La Rosa [id number] (Continued) Signed (signature on file) Rom Elena MD 02/23/24 1536 Normal [facility] NM STRESS/REST MULTIon 06-10 NM STRESS/REST MULTI Patient: ISELA DE LA ROSA Exam Date: 06/10/2021 : 1955 Gender:F Ordering : DR BRENDA BAKER . Admission #: [id number] Family : Order #: [id number] CLICK HERE TO VIEW EXAM RADIOLOGY REPORT [...] Maravilla MD on 06/10/2021 at 12:59 Normal [facility] Vital Signs Date Time Vital Sign Value Performing Clinician Facility 10-09-2024 15:21-0400 Body height 157.48 cm Kristi Chester MD Work Phone: [facility] 10-09-2024 15:21-0400 Body mass index (BMI) [Ratio] 24.1 kg/m2 Kristi Chester MD Work Phone: [facility] 10-09-2024 15:21-0400 Body temperature 98.1 [degF] Kristi Chester MD Work Phone: [facility] 10-09-2024 15:21-0400 Body weight 59.87 kg Kristi Chester MD Work Phone: [facility] 10-09-2024 15:21-0400 Diastolic blood pressure 96 mm[Hg] Kristi Chester MD Work Phone: [facility] 10-09-2024 15:21-0400 Heart rate 63 /min Kristi Chester MD Work Phone: [facility] 10-09-2024 15:21-0400 Systolic blood pressure 168 mm[Hg] Kristi Chester MD Work Phone: [facility] 08-21-2024 10:51-0500 Diastolic blood pressure 77 mm[Hg] Minerva Shafer MD Work Phone: [facility] Comment on above: MD notified 08-21-2024 10:51-0500 Systolic blood pressure 152 mm[Hg] Minerva Shafer MD Work Phone: [facility] Comment on above: MD notified 08-21-2024 10:45-0500 Body temperature 98.1 [degF] Minerva Shafer MD Work Phone: [facility] 08-21-2024 10:45-0500 Heart rate 59 /min Minerva Shafer MD Work Phone: [facility] 08-21-2024 10:45-0500 Respiratory rate 20 /min Minerva Shafer MD Work Phone: [facility] 08-21-2024 10:45-0500 SaO2% (BldA) [Mass fraction] 100 % Minerva Shafer MD Work Phone: [facility] 08-03-2024 15:05-0500 Body height 157.48 cm Kristi Chester MD Work Phone: [facility] 08-03-2024 15:05-0500 Body mass index (BMI) [Ratio] 24.5 kg/m2 Kristi Chester MD Work Phone: [facility] 08-03-2024 15:05-0500 Body weight 60.78 kg Kristi Chester MD Work Phone: [facility] 08-03-2024 15:05-0500 Diastolic blood pressure 64 mm[Hg] Kristi Chester MD Work Phone: [facility] 08-03-2024 15:05-0500 Systolic blood pressure 116 mm[Hg] Kristi Chester MD Work Phone: [facility] 07-05-2024 09:30-0500 Body height 157.48 cm Kristi Chester MD Work Phone: [facility] 07-05-2024 09:30-0500 Body mass index (BMI) [Ratio] 25 kg/m2 Kristi Chester MD Work Phone: [facility] 07-05-2024 09:30-0500 Body temperature 97.4 [degF] Kristi Chester MD Work Phone: [facility] 07-05-2024 09:30-0500 Body weight 61.91 kg Kristi Chester MD Work Phone: [facility] 07-05-2024 09:30-0500 Diastolic blood pressure 85 mm[Hg] Kristi Chester MD Work Phone: [facility] 07-05-2024 09:30-0500 Heart rate 77 /min Kristi Chester MD Work Phone: [facility] 07-05-2024 09:30-0500 Respiratory rate 16 /min Kristi Chester MD Work Phone: [facility] 07-05-2024 09:30-0500 SaO2% (BldA) [Mass fraction] 99 % Kristi Chester MD Work Phone: [facility] 07-05-2024 09:30-0500 Systolic blood pressure 130 mm[Hg] Kristi Chester MD Work Phone: [facility] 05-25-2024 10:41-0400 Blood Pressure Location Bhupendra ROLLINS [facility] 05-25-2024 10:41-0400 Diastolic blood pressure 93 mm[Hg] Bhupendra ROLLINS [facility] 05-25-2024 10:41-0400 Heart rate 81 /min Bhupendra ROLLINS [facility] 05-25-2024 10:41-0400 Respiratory rate 16 /min Bhupendra CHAPMANSravani [facility] 05-25-2024 10:41-0400 Systolic blood pressure 165 mm[Hg] Bhupendra CHAPMANSravani [facility] Encounters Encounter Date Encounter Type Care Provider Facility Start: 11-07-2024 End: 11-10-2024 Telephone encounter Minerva Shafer MD Work Phone: Hematology/Oncology Comment on above: Home Care Aide - O ther Start: 10-17-2024 End: 10-17-2024 Telephone encounter Minerva Shafer MD Work Phone: Hematology/Oncology Comment on above: Care Coordination Start: 10-09-2024 End: 10-09-2024 ambulatory Kristi Chester MD Work Phone: [facility] Work Phone: Start: 10-09-2024 End: 10-09-2024 Patient encounter procedure Kristi Chester MD Work Phone[facility] Start: 09-13-2024 End: 09-13-2024 ambulatory KRISTI CHESTER [facility] Start: 08-30-2024 End: 08-30-2024 ambulatory Bhupendra ROLLINS Facility:[facility] Start: 08-30-2024 End: 08-30-2024 Patient encounter procedure Bhupendra ROLLINS [facility] Start: 08-25-2024 End: 08-25-2024 Telephone encounter Minerva Shafer MD Work Phone: Hematology/Oncology Comment on above: Home Care Aide - O ther Start: 08-22-2024 End: 08-22-2024 Telephone encounter Minerva Shafer MD Work Phone: Hematology/Oncology Comment on above: Care Coordination Start: 08-21-2024 End: 08-21-2024 ambulatory Minerva Shafer MD Work Phone: Hematology/Oncology Comment on above: Malignant neoplasm o f unspecified part of unspecified bronchus or lung (HCC) (Primary Dx) Start: 08-21-2024 End: 08-21-2024 Patient encounter procedure Minerva Shafer MD Work Phone: Hematology/Oncology Start: 08-16-2024 End: 08-16-2024 ambulatory Bhupendra R NILL Facility::[id number] Start: 08-03-2024 End: 08-03-2024 ambulatory Kristi Chester MD Work Phone: [facility] Work Phone: Start: 08-03-2024 End: 08-03-2024 Patient encounter procedure Kristi Chester MD Work Phone: [facility] Physician [facility] Work Phone: Start: 07-17-2024 End: 07-17-2024 ambulatory Kristi Chester Facility:[facility] Start: 07-17-2024 End: 07-17-2024 Departed Referred Kristi Chester MD Work Phone: [facility] Start: 07-05-2024 End: 07-05-2024 Patient encounter procedure Kristi Chester MD Work Phone: [facility] Physician [facility] Work Phone: Start: 05-25-2024 End: 05-25-2024 ambulatory Bhupendra R NILL Facility:[facility] Start: 05-25-2024 End: 05-25-2024 Patient encounter procedure Bhupendra R NILL [facility] [place] Start: 05-16-2024 ambulatory Bhupendra NILL Facility:[facility] Start: 04-06-2024 End: 04-06-2024 ambulatory [facility] Start: 04-03-2024 End: 04-03-2024 ambulatory [facility] Start: 03-15-2024 End: 03-15-2024 Chart abstracting Andreas Pascual MD Work Phone: Hematology/Oncology Start: 02-15-2024 End: 02-15-2024 ambulatory [facility] Work Phone: Start: 02-15-2024 End: 02-15-2024 Departed Referred DO [facility] Work Phone: [facility] Start: 08-08-2021 End: 08-09-[address] BRENDA BAKER Facility:[facility] Start: 06-10-2021 End: 06-11-[address] BRENDA BAKER Facility:[facility] Procedures Date Procedure Procedure Detail Performing Clinician Start: 08-16-2024 Insertion of implant able venous access port Bhupendra ROLLINS Start: 07-17-2024 Urine culture Kristi richards MD Work Phone: Start: 04-06-2024 Bronchoscopy Bhupendra JOSEPH section Bhupendra CHAPMAN L section Bhupendra CHAPMAN L Nerve transposition Bhupendra ROLLINS Repair of inguinal hernia Jyothi ROLLINS Total abdominal hysterectomy with bilateral salpingo-oophorectomy Bhupendra ROLLINS Plan of Treatment Date Care Activity Detail Author Start: 2031 RSV Vaccine (1 - 1-d ose 75+ series) RSV Vaccine (1 - 1-dose 75+ series) [facility] Start: 11-15-2024 End: 11-15-2024 Follow-up encounter 11/15/2024 4:30 PM EDT Visit (SP) Office Hematology/Oncology [address] [place] [address] [place] [address] [place] [address] follow up after scans Hematology/Oncology Comment on above: follow up after scan s Start: 07-26-2024 Advance Directive Discussion Advance Directive Discussion [facility] Start: 03-26-2024 Covid-19 Vaccine ( season) Covid-19 Vaccine ( season) [facility] Start: 03-26-2024 Influenza vaccination Influenza Vacc ine (#1) [facility] Start: 07-26-2023 Advance Directive Discussion Advance Directive Discussion [facility] Start: 03-26-2023 Covid-19 Vaccine ( season) Covid-19 Vaccine ( season) [facility] Start: 2021 Pneumococcal Vaccine : 65+ (1 of 1 - PCV) Pneumococcal Vaccine: 65+ (1 of 1 - PCV) [facility] Start: 2021 Screening for osteoporosis Bone Density Screening [facility] Start: 2016 RSV Vaccine (1 - 1-d ose 60+ series) RSV Vaccine (1 - 1-dose 60+ series) [facility] Start: 2006 Pneumococcal Vaccine : 50+ (1 of 1 - PCV) Pneumococcal Vaccine: 50+ (1 of 1 - PCV) [facility] Start: 2006 Shingrix Vaccine (1 of 2) Shingrix Vaccine (1 of 2) [facility] Start: 2001 Diabetes Screening Diabetes Screenin g [facility] Start: 2001 Lipid panel Lipid Screening [facility] Start: 2001 Screening for malign ant neoplasm of colon [facility] Start: 1996 Screening for malign ant neoplasm of breast Mammogram Screening [facility] Start: 1975 Urine microalbumin profile DTaP,Tdap,Td Vaccine (1 - Tdap) [facility] Start: 1974 Anxiety Screening Anxiety Screening [facility] Start: 1974 Depression Screening Depression Scre ening [facility] Start: 1974 Hepatitis C screening Hepatitis C [facility] aPTT in Platelet poo r plasma by Coagulation assay [facility] CT guided biopsy [facility] Immunizations Immunization Date Immunization Notes Care Provider Nicholas wright 09-18-2020 SARS-CoV-2 (COVID-19 ) mRNA BNT-162b2 vax Bhupendra NILL [facility] 08-28-2020 SARS-CoV-2 (COVID-19 ) mRNA BNT-162b2 vax Bhupendra NILL [facility] Payers Date Payer Category Payer Self-pay 2022 Medicare HUMANA MEDICARE HU[employer]NA GOLD PLUS [id number] 2022-Present [phone] [address] [address] [place] [address] [facility] [id number] 2022 Medicare (Managed Care) [employer]NA G OLD PLUS [id number] 2022 Medicare [id number] 1959 Unknown [id number] 1955 Unknown [id number] 1955 Unknown [id number] 1956 Unknown [id number] [id number] 1956 Unknown [id number] [id number] 1956 Unknown [id number] 1956 Unknown [id number] Private Health Insurance [employer] Insurance [facility] [id number] Unknown [id number] Social History Date Type Detail Facility Tobacco smoking status NHIS Unknown if ever smoked [facility] Work Phone: Start: 1955 Sex Assigned At Female F [facility] Tobacco smoking status NHIS Tobacco smoking consumption unknown [facility] Start: 1955 Sex assigned at Not on file [facility] Start: 08-21-2024 Gender identity Not on file [facility] Start: 05-25-2024 End: 07-05-2024 Tobacco smoking status Never smoked tobacco (finding) [facility] Tobacco smoking status Never [facility] Start: 08-03-2024 End: 10-09-2024 Sex Female (finding) [facility] Start: 08-21-2024 History of Social function [facility] Functional Status Date Assessment Result Facility 08-30-2024 Functional Status N/A [facility] [place] 05-25-2024 Functional Status N/A [facility] [place] Clinical Notes 08-08-2021 to 11-10-2024 Telephone Encounter - Sarah Elkins RN - 11/10/2024 2:14 PM EDTTelephone Encounter - Sarah Elkins RN - 11/10/2024 2:14 PM EDTTelephone Encounter - Yvette Bassett - 11/07/2024 11:47 AM EDT Note Date & Type Note Facility 11-10-2024 Telephone encounter Note Pathology slides for patient's kidney biopsy have been sent to [facility] pathology lab per request from Dr. Chester by administrative receptionist Tatiana. Sarah Elkins RN Specialty Home Care Aide [facility] 11-10-2024 Miscellaneous Notes Pathology slides for patient's kidney biopsy have been sent to [facility] pathology lab per request from Dr. Chester by administrative receptionist Tatiana. Sarah Elkins RN Specialty Home Care Aide [facility] Isela De La Rosa('s) caregiver: Dr. Chester's office is calling Minerva Shafer MD today regarding Home Care Aide - Other Dr. Chester's office called to see if Dr. Shafer requested the pathology slides for patient's kidney biopsy yet to review. If not, could he do so, per the conversation both doctor's had previously. If request hasn't been made yet, it should be sent to [facility] pathology lab Patient has been identified by name and birthdate. Yvette Bassett November 07, 2024 documented in this encounter [facility] 11-07-2024 Telephone encounter Note Isela De La Rosa('s) caregiver: Dr. Chester's office is calling Minerva Shafer MD today regarding Home Care Aide - Other Dr. Chester's office called to see if Dr. Shafer requested the pathology slides for patient's kidney biopsy yet to review. If not, could he do so, per the conversation both doctor's had previously. If request hasn't been made yet, it should be sent to [facility] pathology lab Patient has been identified by name and birthdate. Yvette Bassett November 07, 2024 [facility] 10-17-2024 Telephone encounter Note Received a call from Dr. Chester's office. Dr. Chester would like to discuss Isela's treatment plan and elevated kidney function, to coordinate a new plan for her. Let Dr. Chester know that Dr. Toro is covering for Dr. Shafer. Message sent to Dr. Toro with request to return Dr. Chester's phone call. MASON Mendez, RN Specialty Home Care Aide October 17, 2024 [facility] 10-17-2024 Miscellaneous Notes Received a call from Dr. Chester's office. Dr. Chester would like to discuss Isela's treatment plan and elevated kidney function, to coordinate a new plan for her. Let Dr. Chester know that Dr. Toro is covering for Dr. Shafer. Message sent to Dr. Toro with request to return Dr. Chester's phone call. MASON Mendez, RN Specialty Home Care Aide October 17, 2024 Isela De La Rosa('s) Anay/Dr. Chester's office is calling Minerva Shafer MD today regarding Home Care Aide - Other (Speak to nurse ) Anay called to speak with provider's nurse regarding patient. Sent secure chat to Hanna. Alvarado. Patient has been identified by name and birthdate. Requesting response back: [phone] (home) [phone] (cell) Tatiana Sow October 17, 2024 documented in this encounter [facility] 10-17-2024 Telephone encounter Note Isela De La Rosa('s) Anay/Dr. Chester's office is calling Minerva Shafer MD today regarding Home Care Aide - Other (Speak to nurse ) Anay called to speak with provider's nurse regarding patient. Sent secure chat to Hanna. Alvarado. Patient has been identified by name and birthdate. Requesting response back: [phone] (home) [phone] (cell) Tatiana Sow October 17, 2024 [facility] 08-25-2024 Telephone encounter Note Left message introducing self by name and title asking to return call. Sarah Elkins RN Specialty Home Care Aide [facility] 08-25-2024 Miscellaneous Notes Left message introducing self by name and title asking to return call. Sarah Elkins RN Specialty Home Care Aide [facility] Katie from Dr. Sia torres at [place] states order for kidney biopsy needs to be placed [facility], they are not able to submit the order, must be done by [facility] facility. Patient has been identified by name and birthdate. Duration of symptoms: N/A Requesting response back: Katie can be reached at [phone] if needed. [phone] (home) [phone] (cell) Sergo Staples August 25, 2024 documented in this encounter [facility] 08-25-2024 Telephone encounter Note Katie from Dr. Sia torres at [place] states order for kidney biopsy needs to be placed [facility], they are not able to submit the order, must be done by [facility] facility. Patient has been identified by name and birthdate. Duration of symptoms: N/A Requesting response back: Katie can be reached at [phone] if needed. [phone] (home) [phone] (cell) Sergo Staples August 25, 2024 [facility] 08-22-2024 Telephone encounter Note Returned call and identified self by name and title. Called Dr. Chester's office and let them know that Dr. Shafer would like Dr. Chester to arrange the kidney biopsy. MASON Mendez, RN Specialty Home Care Aide August 22, 2024 [facility] 08-22-2024 Miscellaneous Notes Returned call and identified self by name and title. Called Dr. Chester's office and let them know that Dr. Shafer would like Dr. Chester to arrange the kidney biopsy. MASON Mendez, RN Specialty Home Care Aide August 22, 2024 Isela De La Rosa('s) caregiver: Dr. Chester's office is calling Minreva Shafer MD today regarding the suggestion of Dr. Shafer that patient have a biopsy on her kidney. Dr. Chester wants to know if Dr. Shafer is going to arrange this or does he want Dr. Chester to arrange it. Patient has been identified by name and birthdate. Requesting response back: [phone] - Dr. Chester's office Yvette Bassett August 22, 2024 documented in this encounter [facility] 01-28-2025 Telephone encounter Note Isela Jud('s) caregiver: Dr. Chester's office is calling Minerva Shafer MD today regarding the suggestion of Dr. Shafer that patient have a biopsy on her kidney. Dr. Chester wants to know if Dr. Shafer is going to arrange this or does he want Dr. Chester to arrange it. Patient has been identified by name and birthdate. Requesting response back: [phone] - Dr. Chester's office Yvette Bassett August 22, 2024 [facility] 08-21-2024 Note HNO ID: [id number] Author: MINERVA SHAFER MD Service: ? Author Type: Physician Type: Progress Notes Filed: 08/21/2024 15:09 Note Text: THORACIC ONCOLOGY NEW CONSULT VISIT ASSESSMENT: [id number], stage IVB NSCLC adenocarcinoma. PD-L 13% Molec negative. Status post 4 cycles of carboplatin pemetrexed and pembrolizumab. PLAN: I reviewed the diagnosis at length with Ms. De La Rosa and her family. Based on current scans and pathology reports you have a stage IV disease that was appropriately treated with combination chemoimmunotherapy utilizing carboplatin pemetrexed and pembrolizumab with good results based on latest PET scan in June. I acknowledged the worsening of renal function and would recommend nephrology consult and biopsy to determine the root cause of this failure. If it is due to immunotherapy, would recommend continuing with pemetrexed single agent. If it is due to pemetrexed, I would recommend continuing with pembrolizumab as a single agent. I would reserve shifting/switching treatment to docetaxel ramucirumab until there is true progression of disease. CC: Kristi Chester [address] [place] [address] [address] [facility] [address] Brenda Baker MD [address] [facility] [address] [address] Chester for an opinion regarding Ms. Isela De La Rosa, and my final recommendations will be communicated back to the requesting physician by way of shared medical record or letter via [place] mail. HPI: Isela De La Rosa presents to [facility] today for thoracic oncology evaluation. She is a 69 year old female with stage IV NSCLC. Patient had a COVID infection in 2013 with a lingering cough that led to imaging. CT chest done in February 04, 2024 showed a 6.2 cm right upper lobe mass with mediastinal and hilar lymphadenopathy. She had bronchoscopy done with final pathology showing adenocarcinoma in the right upper lobe. Tumor was positive for cytokeratin 7 and Napsin; negative for cytokeratin 20 and p40. Guardant testing was positive for p53 mutation and RAF1 mutation. PD-L1 was 13%. Patient was started on carboplatin pemetrexed pembrolizumab April 18, 2024 and last cycle was given on July 11, 2024. Her creatinine had waxed and waned during this. Peaking at 1.84 on August 08. This decreased to 1.58 on August 15 after receiving a steroid Dosepak per patient. Currently patient is doing well with no major complaints. PAST MEDICAL HISTORY Diagnosis Date Adenocarcinoma of right lung (HCC) 2023 Hilar lymphadenopathy PAST SURGICAL HISTORY Procedure Laterality Date PAST SURGICAL HISTORY OF 02/2024 bronchoscopy PAST SURGICAL HISTORY OF Right right arm TOTAL ABDOM HYSTERECTOMY MEDICATIONS: fentaNYL (DURAGESIC) 25 mcg/hr Apply 1 Patch as directed every 72 hours. ibuprofen (MOTRIN) 600 mg tablet Take 600 mg by mouth two times a day as needed for pain. levothyroxine (SYNTHROID) 75 mcg tablet Take 75 mcg by mouth once daily. magnesium oxide 400 mg magnesium cap Take 400 mg by mouth two times a day. metoprolol tartrate, short acting, (LOPRESSOR) 50 mg tablet Take 50 mg by mouth two times a day. multivitamin tablet Take 1 tablet by mouth every morning. potassium chloride 20 mEq TbER Take 1 tablet by mouth every afternoon. prochlorperazine (COMPAZINE) 10 mg tablet Take 10 mg by mouth every 8 hours as needed for nausea/vomiting. ondansetron orally disintegrating (ZOFRAN ODT) 4 mg disintegrating tablet Take 4 mg by mouth every 8 hours as needed for nausea/vomiting. ALLERGIES: ALLERGIES No Known Allergies No family history on file. REVIEW OF SYSTEMS GENERAL: No fevers, chills, or nightsweats HEENT: No difficulty swallowing, ringing in the ears, nor blurry vision HEMATOLOGY/LYMPHOLOGY Negative for prolonged bleeding, bruising easily, lumps or swollen Lymph nodes. PULMONARY: Negative for cough, hemoptysis, wheezing, COPD, dyspnea or shortness of breath CARDIOVASCULAR: Negative for leg swelling or palpitations. GI: Negative for N/V, diarrhea or constipation, abdominal discomfort, hematemesis, hematochezia or melena. MUSCULOSKELETAL: Negative for bone or joint pain or swelling, back pain or muscle pain. NEURO: No history of headaches, syncope, focal weakness or paralysis, seizures, numbness or tingling of hands or feet ECOG PERFORMANCE STATUS: 1 PHYSICAL EXAMINATION: Vitals: BP 152/77[MD notified[ Pulse 59 Temp (Src) 98.1 (Temporal) Resp 20 SpO2 100% General: WD/WN woman in NAD. HEENT: Sclerae anicteric, conjunctiva non-injected. Wearing mask. No temporal wasting. Lungs: easy work of breathing. Symmetric chest movement Abdominal: No obvious ascites or organomegaly. Extremities: No digital clubbing, cyanosis, or edema. Skin: No rash, petechiae or purpura. Neurological: AOx3, mood and affect appropriate. Gait nml. LABORATORY VALUES: This case ([id number]) was sent to [facility] the [place] [address] Tissue Next (more content not included)... [facility] 08-21-2024 History of Present illness Narrative THORACIC ONCOLOGY NEW CONSULT VISIT ASSESSMENT: [id number], stage IVB NSCLC adenocarcinoma. PD-L 13% Molec negative. Status post 4 cycles of carboplatin pemetrexed and pembrolizumab. PLAN: I reviewed the diagnosis at length with Ms. De La Rosa and her family. Based on current scans and pathology reports you have a stage IV disease that was appropriately treated with combination chemoimmunotherapy utilizing carboplatin pemetrexed and pembrolizumab with good results based on latest PET scan in June. I acknowledged the worsening of renal function and would recommend nephrology consult and biopsy to determine the root cause of this failure. If it is due to immunotherapy, would recommend continuing with pemetrexed single agent. If it is due to pemetrexed, I would recommend continuing with pembrolizumab as a single agent. I would reserve shifting/switching treatment to docetaxel ramucirumab until there is true progression of disease. CC: Kristi Chester [address] [place] [address] [address] [facility] [address] Brenda Baker MD [address] [facility] [address] Chester for an opinion regarding Ms. Isela De La Rosa, and my final recommendations will be communicated back to the requesting physician by way of shared medical record or letter via [place] mail. HPI: Isela De La Rosa presents to [facility] today for thoracic oncology evaluation. She is a 69 year old female with stage IV NSCLC. Patient had a COVID infection in 2013 with a lingering cough that led to imaging. CT chest done in February 04, 2024 showed a 6.2 cm right upper lobe mass with mediastinal and hilar lymphadenopathy. She had bronchoscopy done with final pathology showing adenocarcinoma in the right upper lobe. Tumor was positive for cytokeratin 7 and Napsin; negative for cytokeratin 20 and p40. Guardant testing was positive for p53 mutation and RAF1 mutation. PD-L1 was 13%. Patient was started on carboplatin pemetrexed pembrolizumab April 18, 2024 and last cycle was given on July 11, 2024. Her creatinine had waxed and waned during this. Peaking at 1.84 on August 08. This decreased to 1.58 on August 15 after receiving a steroid Dosepak per patient. Currently patient is doing well with no major complaints. PAST MEDICAL HISTORY Diagnosis Date Adenocarcinoma of right lung (HCC) 2023 Hilar lymphadenopathy PAST SURGICAL HISTORY Procedure Laterality Date PAST SURGICAL HISTORY OF 02/2024 bronchoscopy PAST SURGICAL HISTORY OF Right right arm TOTAL ABDOM HYSTERECTOMY MEDICATIONS: fentaNYL (DURAGESIC) 25 mcg/hr Apply 1 Patch as directed every 72 hours. ibuprofen (MOTRIN) 600 mg tablet Take 600 mg by mouth two times a day as needed for pain. levothyroxine (SYNTHROID) 75 mcg tablet Take 75 mcg by mouth once daily. magnesium oxide 400 mg magnesium cap Take 400 mg by mouth two times a day. metoprolol tartrate, short acting, (LOPRESSOR) 50 mg tablet Take 50 mg by mouth two times a day. multivitamin tablet Take 1 tablet by mouth every morning. potassium chloride 20 mEq TbER Take 1 tablet by mouth every afternoon. prochlorperazine (COMPAZINE) 10 mg tablet Take 10 mg by mouth every 8 hours as needed for nausea/vomiting. ondansetron orally disintegrating (ZOFRAN ODT) 4 mg disintegrating tablet Take 4 mg by mouth every 8 hours as needed for nausea/vomiting. ALLERGIES: ALLERGIES No Known Allergies No family history on file. REVIEW OF SYSTEMS GENERAL: No fevers, chills, or nightsweats HEENT: No difficulty swallowing, ringing in the ears, nor blurry vision HEMATOLOGY/LYMPHOLOGY Negative for prolonged bleeding, bruising easily, lumps or swollen Lymph nodes. PULMONARY: Negative for cough, hemoptysis, wheezing, COPD, dyspnea or shortness of breath CARDIOVASCULAR: Negative for leg swelling or palpitations. GI: Negative for N/V, diarrhea or constipation, abdominal discomfort, hematemesis, hematochezia or melena. MUSCULOSKELETAL: Negative for bone or joint pain or swelling, back pain or muscle pain. NEURO: No history of headaches, syncope, focal weakness or paralysis, seizures, numbness or tingling of hands or feet ECOG PERFORMANCE STATUS: 1 PHYSICAL EXAMINATION: Vitals: BP 152/77[MD notified[ Pulse 59 Temp (Src) 98.1 (Temporal) Resp 20 SpO2 100% General: WD/WN woman in NAD. HEENT: Sclerae anicteric, conjunctiva non-injected. Wearing mask. No temporal wasting. Lungs: easy work of breathing. Symmetric chest movement Abdominal: No obvious ascites or organomegaly. Extremities: No digital clubbing, cyanosis, or edema. Skin: No rash, petechiae or purpura. Neurological: AOx3, mood and affect appropriate. Gait nml. LABORATORY VALUES: This case ([id number]) was sent to [facility] for the [place] [address] Tissue Next and PDL1 22C3 assays. The results read as follows: Detected Alterations and Biomarkers with Associated Treatment Options or Clinical Trials TP53:I195T RAF1:P261R Additional Biomarkers Tumor Mutational [place] (TMB): 4.0 mut/Mb MSI Status: Stable PD-L1 22C3 TPS:13% RADIOLOGY REVIEW: Images reviewed by me in the presence of patient as mentioned in the HPI. DIAGNOSIS: [id number], stage IVB NSCLC adenocarcinoma. PD-L 13% Molec negative. Status post 4 cycles of carboplatin pemetrexed and pembrolizumab. ASSESSMENT AND PLAN: I reviewed the diagnosis at length with Ms. De La Rosa and her family. Based on current scans and pathology reports you have a stage IV disease that was appropriately treated with combination chemoimmunotherapy utilizing carboplatin pemetrexed and pembrolizumab with good results based on latest PET scan in June. I acknowledged the worsening of renal function and would recommend nephrology consult and biopsy to determine the root cause of this failure. If it is due to immunotherapy, would recommend continuing with pemetrexed single agent. If it is due to pemetrexed, I would recommend continuing with pembrolizumab as a single agent. I would reserve shifting/switching treatment to docetaxel ramucirumab until there is true progression of disease. I called Dr. Chester and discussed the case with him. It seems there is concern from the patient's site regarding getting kidney biopsy. Thus we agreed that based on her latest creatinine, he can continue treatment with single agent pemetrexed and follow up creatinine. If it does not increase then proceed with pemetrexed maintenance. If creatinine increases then switch to pembrolizumab. All their questions were answered to their satisfaction and they know how to reach us in case they have any other concerns or issues. Minerva Shafer MD MS Minerva Shafer MD Additional intake questions: Has the patient had fever, nausea, vomiting, diarrhea, constipation, fatigue for > 1 week? Yes, fatigue and Provider Notified Does the patient have a decreased appetite? Yes, getting better Does patient want to see a Payroll Examiner? No (yes to any of above refer patient to schedulers for dietitian appointment) ) Does patient have any new or increased numbness or tingling of extremities? No Is patient interested in fertility information? No Does patient need any prescription refills? No Does patient have an advanced directive in place? Yes, no copy found in [facility] Patient referred to [facility] documented in this encounter [facility] 08-21-2024 Note HNO ID: [id number] Author: DASHAWN CHEN LPN Service: ? Author Type: LICENSED NURSE Type: Progress Notes Filed: 08/21/2024 15:09 Note Text: Additional intake questions: Has the patient had fever, nausea, vomiting, diarrhea, constipation, fatigue for > 1 week? Yes, fatigue and Provider Notified Does the patient have a decreased appetite? Yes, getting better Does patient want to see a Payroll Examiner? No (yes to any of above refer patient to schedulers for dietitian appointment) ) Does patient have any new or increased numbness or tingling of extremities? No Is patient interested in fertility information? No Does patient need any prescription refills? No Does patient have an advanced directive in place? Yes, no copy found in [facility] Patient referred to [facility] Electronically Signed By: Dashawn Chen LPN [facility] 08-03-2024 Evaluation note Diagnosis Onset Date Resolution LEIDA (acute kidney injury) acute August 03 3:15pm Hypokalemia acute August 03, 2024 3:15pm Lung cancer acute August 03, 2024 3:15pm [facility] Work Phone: 1(971) 876-219712-11-2024 Evaluation note* Diagnosis Onset Date Resolution Status Admit Date LEIDA (acute kidney injury) acute July 05, 2024 9:28am Hypokalemia acute June 9:28am Lung cancer acute June 9:28am LEIDA (acute kidney injury) acute August 03, 2024 3:15pm Hypokalemia acute August 03, 2024 3:15pm Lung cancer acute August 03, 2024 3:15pm [facility] Work Phone: 1(567) 152-473210-31-2024 NoteGeneral Surgery Office/Clinic Note Chief Complaint consultation for port HPI Staff 69 year old female presents on consultation from Dr. Chester for port placement. Patient with adenocarcinoma of right lung. History of Present Illness 69 yo female with h/o adenocarcinoma of right upper lobe of lung, referred for slkrfj-g-fscg insertion; patient has already begun chemotherapy via [...] upper lobe, right bronchus or lung) plan gsjcyp-s-gihl insertion under anesthesia at [facility], informed consent obtained. Ancef 2 gms [...] Recorded SARS-CoV-2 (COVID-19) mRNA BNT-162b2 vax 08/28/2020 RecordedKeenan Private HospitalComment on above:Result Comment: Electronically Signed By: RIA BAILEY, Bhupendra King\Date and Time Signed: 05/25/24 16:13 [id number] NotePatient: Isela De La Rosa Procedure Summary Date: 04/06/24 Room / Location: [facility] Main Operating Room Anesthesia Start: 1126 Anesthesia [...] were no known notable events for this encounter.[facility]09-12-2024 NoteAirway Date/Time: 04/06/2024 11:32 AM Urgency: elective Airway not difficult General Information and Staff Patient location during procedure: OR Anesthesiologist: Kevon Lamar MD Resident/DOCK CLERK/CAA: Ananda Villatoro MD Performed: resident/DOCK CLERK/CAA Indications and Patient Condition Indications for airway [...] 22 Number of attempts at approach: 1UnPro[facility]09-12-2024 NotePatient: Isela Jud Procedure Summary Date: 04/06/24 Room / Location: [facility] Main Operating Room Anesthesia Start: 1125 Anesthesia Stop: 1214 Procedure: BRONCHOSCOPY Diagnosis: Malignant [...] respond and follow verbal commands throughout transport processCl[facility]09-[facility]-2024 NotePatient: Isela Jud Procedure Information Date/Time: 04/06/24 1130 Scheduled providers: Rom Melton MD Procedure: BRONCHOSCOPY Location: [facility] Main Operating Room Relevant Problems No relevant [...] with 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 Additional Equipment [facility]sCl[facility]09-09-[address] Chester. Patient needs more tissue for molecular testing. EBUS order placedUnProMedica Bay Park Hospital01-14-2022 NotePROCEDURE: XR KNEE LT 4V or [...] authenticated by: CARIE VELÁZQUEZ Date: 2021-08-08 14:54[facility] note No data available for this section [facility] [place] Evaluation noteNo assessment information available [facility] Work Phone: Evaluation note* Diagnosis Malignant neoplasm of unspecified part of unspecified bronchus or lung (HCC)- Primary documented in this encounter [facility] Discharge instructions No data available for this section [facility] Surgery [place] Progress note No data available for this section [facility] Surgery [place] Summary Purpose Family History No Family History Records Found Relationship Condition Age at Onset Recorded Date/T lary father Alzheimer's dementia Unknown Advance Directives No Advanced Directives Records Found Advance Directive Response Recorded Date/ Time Advance Directives No May 18, 2024 9:00am Advance Directive Response Recorded Date/ Time Advance Directives No May 18, 2024 10:00am Chief Complaint and Reason for Visit Chief Complaint Admit Date Unknown July 17, 2024 12:00pm RENAL F/U August 03, 2024 3: 15pm renal f/u October 09, 2024 3:1 8pm Reason for Visit Admit Date LEIDA (acute kidney injury) August 03, 2 025 3:15pm Hypokalemia August 03, 2024 3: 15pm Lung cancer August 03, 2024 3: 15pm Chief Complaint Admit Date RENAL KEYTRUDA NEPHRITIS [...] [facility] DATE CREATED AUTHOR AUTHOR'S ORGANIZ ATION [address] [facility] DATE CREATED AUTHOR AUTHOR'S ORGANIZ ATION 07/20/2024 [facility] DATE CREATED AUTHOR AUTHOR'S ORGANIZ ATION 09/01/2024 [facility] DATE CREATED AUTHOR AUTHOR'S ORGANIZ ATION 09/21/2024 [facility] DATE CREATED AUTHOR AUTHOR'S ORGANIZ ATION 11/13/2024 [facility] Care Teams (unrecognized sec tion and content) Team Status: Inactive Member Role Status Dates Vj CROWLEY DO Attending Provider Active Start: February 15, 2024 End: February 15, 2024 Teradata Developer Relationship Specialty Start Date End Date Brenda Baker MD [address] [place] [address] PCP - General Family Medicine 03/02/24 Team [...] August 03, 2024 End: August 03, 2024 Teradata Developer Relationship Specialty Start Date End Date Brenda Baker MD [address] [place] [address] PCP - General Family Medicine 03/02/24 Kristi Chester MD [address] [place] [address] Referring Hematology/Oncology 08/15/24 Teradata Developer Relationship Specialty Start Date End Date Brenda Baker MD [address] [place] [id number] PCP - General Family Medicine 03/02/24 Kristi Chester MD [address] [place] [address] Referring Hematology/Oncology 08/15/24 Team Status: Inactive Member Role Status Dates Brenda Baker MD Primary Care Provider Active Start: October 09, 2024 End: October 09, 2024 Daniella Diego MD Attending Provider Active Start : October 09, 2024 End: October 09, 2024 Teradata Developer Relationship Specialty Start Date End Date Brenda Baker MD [address] [place] [id number] PCP - General Family Medicine 03/02/24 Kristi Chester MD [address] [place] [address] Referring Hematology/Oncology 08/15/24 Sarah Elkins, [place] Specialty Home Care Aide Hematology/Oncology 10/26/24 Ana Riojas, [place] Specialty Home Care Aide Hematology/Oncology 10/26/24 Goals (unrecognized section and content) Goals may be documented in a n alternate section No data available for this sectionGoals may be documented in an alternate section No data available for this sectionGoals may be documented in an alternate section Source Comments (unrecognize d section and content) In the event this informatio n is protected by the Federal Confidentiality of Alcohol and Drug Abuse Patient Records regulations: The Federal rules restrict any use of the information to criminally investigate or prosecute any alcohol or drug abuse patient.[facility] the event this information is protected by the Federal Confidentiality of Alcohol and Drug Abuse Patient Records regulations: The Federal rules restrict any use of the information to criminally investigate or prosecute any alcohol or drug abuse patient.[facility] HospitalIn the event this information is protected by the Federal Confidentiality of Alcohol and Drug Abuse Patient Records regulations: The Federal rules restrict any use of the information to criminally investigate or prosecute any alcohol or drug abuse patient.[facility] HospitalIn the event this information is protected by the Federal Confidentiality of Alcohol and Drug Abuse Patient Records regulations: The Federal rules restrict any use of the information to criminally investigate or prosecute any alcohol or drug abuse patient.[facility] HospitalIn the event this information is protected by the Federal Confidentiality of Alcohol and Drug Abuse Patient Records regulations: The Federal rules restrict any use of the information to criminally investigate or prosecute any alcohol or drug abuse patient.[facility] HospitalIn the event this information is protected by the Federal Confidentiality of Alcohol and Drug Abuse Patient Records regulations: The Federal rules restrict any use of the information to criminally investigate or prosecute any alcohol or drug abuse patient.[facility] Reason for Visit (unrecogniz ed section and content) Reason Comments Consult Reason Comments Care Coordination Reason Comments Home Care Aide - Other FOR RECORDS PERTAINING TO PATIENTS WHO ARE [...] BE BASED ON THE PRIMARY CLINICAL RECORDS. [facility]. provides no warranty or guarantee of the accuracy or completeness of information in this document.
== END 2024-11-13 14:53 | disposition home or self-care (01) ==
LOC: PETCT 14:52
PROVIDERS: PCP Family Medicine; Visit Provider Internal Medicine Hematology & Oncology
DX: C34.11 Malignant neoplasm of upper lobe, right bronchus or lung (principal); R11.2 Nausea with vomiting, unspecified; C77.1 Secondary and unspecified malignant neoplasm of intrathoracic lymph nodes; C78.7 Secondary malignant neoplasm of liver and intrahepatic bile duct; C79.51 Secondary malignant neoplasm of bone; D64.9 Anemia, unspecified; D69.6 Thrombocytopenia, unspecified; D70.1 Agranulocytosis secondary to cancer chemotherapy; Z79.899 Other long term (current) drug therapy; D64.81 Anemia due to antineoplastic chemotherapy; D50.9 Iron deficiency anemia, unspecified; K90.9 Intestinal malabsorption, unspecified
CPT/HCPCS: 78815; A9552

== ENCOUNTER 2024-11-21 07:30 | Outpatient (RCR) | payer MEDICARE, SELFPAY ==
[2024-10-24 09:25] VITALS: BP 154/87; PULSE 66; TEMP 36.3; O2SAT 98
[2024-10-24 09:54] LABS: Basophils Percent Auto 0.2 % (0.2-2.0); Eosinophils Absolute Auto 0.1 10^3/uL (0.0-0.7); Eosinophils Percent Auto 1.7 % (0.9-7.0); Hematocrit 29.9 % (36.0-48.0); Hemoglobin 9.6 g/dL (12.0-16.0); Immature Granulocytes Pct Auto 1.9 % (0.0-0.5); Lymphocytes Absolute Auto 0.9 10^3/uL (1.2-3.8); Lymphocytes Percent Auto 17.2 % (20.5-60.0); Mean Corpuscular HGB Conc 32.1 g/dL (29.9-35.2); Mean Corpuscular Hemoglobin 31.1 pg (26.7-34.0); Mean Corpuscular Volume 96.8 fL (81.0-99.0); Mean Platelet Volume 12.5 fL (9.5-13.5); Monocytes Absolute Auto 1.1 10^3/uL (0.3-0.8); Monocytes Percent Auto 21.5 % (1.7-12.0); Neutrophils Absolute Auto 3.1 10^3/uL (1.4-6.5); Neutrophils Percent Auto 57.5 % (43.0-75.0); Platelet Count 197 10^3/uL (150-450); Red Blood Count 3.09 10^6/uL (4.20-5.40); Red Cell Distribution Width 15.9 % (11.0-15.0); White Blood Count 5.3 10^3/uL (4.0-11.0)
[2024-10-24 10:16] LABS: Alanine Aminotransferase 32 U/L (14-59); Albumin Level 3.6 g/dL (3.4-5.0); Alkaline Phosphatase 87 U/L (46-116); Anion Gap 15.3; Aspartate Amino Transferase 27 U/L (15-37); Bilirubin Total 0.2 mg/dL (0.2-1.0); Calcium 8.9 mg/dL (8.5-10.1); Carbon Dioxide 27.4 mmol/L (21.0-32.0); Chloride 105 mmol/L (98-107); Estimated GFR (African America 29 (>=60 mL/min/1.73m^2); Estimated GFR (Non-African Ame 24 (>=60 mL/min/1.73m^2); Globulin 3.7 g/dL; Glucose 112 mg/dL (74-106); Magnesium 1.8 mg/dL (1.8-2.4); Potassium 3.7 mmol/L (3.5-5.1); Sodium 144 mmol/L (136-145); TSH W/ REFLEX FT4 3.447 uIU/mL (0.358-3.740); Total Protein 7.3 g/dL (6.4-8.2)
[2024-10-24] MEDS: 0.9 % SODIUM CHLORIDE 1,000 ML 666.667 ML IV (10:55)
[2024-10-24] MEDS: DEXAMETHASONE SOD PHOS 4 MG/ML VIAL 6 MG IV (11:35)
--- NOTE | 2024-10-24 15:34 | PC.NURSE ---
1055: Dr. Chester to chairside for MD visit. NS, 1L, IV initiated as ordered. Chemo held today due to elevated kidney function.
[2024-10-31 09:35] VITALS: BP 168/89; PULSE 60; TEMP 36.3; O2SAT 98
[2024-10-31 10:07] LABS: Eosinophils Percent Auto 0.3 % (0.9-7.0); Hematocrit 32.4 % (36.0-48.0); Hemoglobin 10.4 g/dL (12.0-16.0); Immature Granulocytes Abs Auto 0.06 10^3/uL (0.00-0.03); Immature Granulocytes Pct Auto 0.8 % (0.0-0.5); Lymphocytes Absolute Auto 1.3 10^3/uL (1.2-3.8); Lymphocytes Percent Auto 17.1 % (20.5-60.0); Mean Corpuscular HGB Conc 32.1 g/dL (29.9-35.2); Mean Corpuscular Volume 96.7 fL (81.0-99.0); Mean Platelet Volume 11.2 fL (9.5-13.5); Monocytes Absolute Auto 1.4 10^3/uL (0.3-0.8); Monocytes Percent Auto 17.7 % (1.7-12.0); Neutrophils Percent Auto 64.1 % (43.0-75.0); Platelet Count 230 10^3/uL (150-450); Red Blood Count 3.35 10^6/uL (4.20-5.40); Red Cell Distribution Width 17.3 % (11.0-15.0); White Blood Count 7.8 10^3/uL (4.0-11.0)
[2024-10-31 10:19] LABS: Alanine Aminotransferase 24 U/L (14-59); Albumin Level 3.6 g/dL (3.4-5.0); Alkaline Phosphatase 79 U/L (46-116); Anion Gap 12.2; Aspartate Amino Transferase 19 U/L (15-37); BUN Creatinine Ratio 15.3; Bilirubin Total 0.2 mg/dL (0.2-1.0); Calcium 8.8 mg/dL (8.5-10.1); Carbon Dioxide 26.4 mmol/L (21.0-32.0); Chloride 103 mmol/L (98-107); Estimated GFR (African America 32 (>=60 mL/min/1.73m^2); Estimated GFR (Non-African Ame 26 (>=60 mL/min/1.73m^2); Globulin 3.7 g/dL; Glucose 116 mg/dL (74-106); Magnesium 1.8 mg/dL (1.8-2.4); Potassium 3.6 mmol/L (3.5-5.1); Sodium 138 mmol/L (136-145); Total Protein 7.3 g/dL (6.4-8.2)
[2024-10-31] MEDS: DENOSUMAB 120 MG/1.7 ML VIAL SQ (10:29)
[2024-11-07 10:15] VITALS: BP 148/86; PULSE 93; TEMP 35.7; O2SAT 97
[2024-11-07 10:45] LABS: Basophils Percent Auto 0.3 % (0.2-2.0); Eosinophils Percent Auto 0.4 % (0.9-7.0); Hematocrit 34.7 % (36.0-48.0); Hemoglobin 11.2 g/dL (12.0-16.0); Immature Granulocytes Abs Auto 0.04 10^3/uL (0.00-0.03); Immature Granulocytes Pct Auto 0.4 % (0.0-0.5); Lymphocytes Absolute Auto 0.9 10^3/uL (1.2-3.8); Lymphocytes Percent Auto 9.9 % (20.5-60.0); Mean Corpuscular HGB Conc 32.3 g/dL (29.9-35.2); Mean Corpuscular Hemoglobin 31.2 pg (26.7-34.0); Mean Corpuscular Volume 96.7 fL (81.0-99.0); Mean Platelet Volume 12.3 fL (9.5-13.5); Monocytes Absolute Auto 1.3 10^3/uL (0.3-0.8); Monocytes Percent Auto 14.4 % (1.7-12.0); Neutrophils Absolute Auto 6.7 10^3/uL (1.4-6.5); Neutrophils Percent Auto 74.6 % (43.0-75.0); Platelet Count 158 10^3/uL (150-450); Red Blood Count 3.59 10^6/uL (4.20-5.40); Red Cell Distribution Width 16.6 % (11.0-15.0)
[2024-11-07 10:48] LABS: Alanine Aminotransferase 20 U/L (14-59); Albumin Level 3.8 g/dL (3.4-5.0); Alkaline Phosphatase 81 U/L (46-116); Anion Gap 10.2; Aspartate Amino Transferase 17 U/L (15-37); Bilirubin Total 0.3 mg/dL (0.2-1.0); Calcium 8.7 mg/dL (8.5-10.1); Carbon Dioxide 26.6 mmol/L (21.0-32.0); Chloride 104 mmol/L (98-107); Estimated GFR (African America 33 (>=60 mL/min/1.73m^2); Estimated GFR (Non-African Ame 27 (>=60 mL/min/1.73m^2); Globulin 3.7 g/dL; Glucose 123 mg/dL (74-106); Potassium 3.8 mmol/L (3.5-5.1); Sodium 137 mmol/L (136-145); Total Protein 7.5 g/dL (6.4-8.2)
[2024-11-14 09:35] LABS: Basophils Percent Auto 0.5 % (0.2-2.0); Eosinophils Absolute Auto 0.1 10^3/uL (0.0-0.7); Eosinophils Percent Auto 1.2 % (0.9-7.0); Hematocrit 33.7 % (36.0-48.0); Hemoglobin 10.9 g/dL (12.0-16.0); Immature Granulocytes Abs Auto 0.02 10^3/uL (0.00-0.03); Immature Granulocytes Pct Auto 0.3 % (0.0-0.5); Lymphocytes Absolute Auto 1.1 10^3/uL (1.2-3.8); Lymphocytes Percent Auto 16.6 % (20.5-60.0); Mean Corpuscular HGB Conc 32.3 g/dL (29.9-35.2); Mean Corpuscular Hemoglobin 30.9 pg (26.7-34.0); Mean Corpuscular Volume 95.5 fL (81.0-99.0); Mean Platelet Volume 11.7 fL (9.5-13.5); Monocytes Absolute Auto 1.1 10^3/uL (0.3-0.8); Monocytes Percent Auto 16.3 % (1.7-12.0); Neutrophils Absolute Auto 4.3 10^3/uL (1.4-6.5); Neutrophils Percent Auto 65.1 % (43.0-75.0); Platelet Count 154 10^3/uL (150-450); Red Blood Count 3.53 10^6/uL (4.20-5.40); White Blood Count 6.6 10^3/uL (4.0-11.0)
[2024-11-14 09:51] LABS: Alanine Aminotransferase 26 U/L (14-59); Albumin Globulin Ratio 0.9; Albumin Level 3.6 g/dL (3.4-5.0); Alkaline Phosphatase 82 U/L (46-116); Anion Gap 13.9; Aspartate Amino Transferase 21 U/L (15-37); Bilirubin Total 0.3 mg/dL (0.2-1.0); Calcium 8.4 mg/dL (8.5-10.1); Carbon Dioxide 26.1 mmol/L (21.0-32.0); Chloride 101 mmol/L (98-107); Estimated GFR (African America 33 (>=60 mL/min/1.73m^2); Estimated GFR (Non-African Ame 27 (>=60 mL/min/1.73m^2); Globulin 3.8 g/dL; Glucose 137 mg/dL (74-106); Sodium 137 mmol/L (136-145); Total Protein 7.4 g/dL (6.4-8.2)
[2024-11-14] MEDS: HEPARIN SODIUM (PORCINE) PF LOCK FLUSH 500 UNIT/5 ML SYRINGE IV (10:00)
[2024-11-21 09:45] LABS: Basophils Percent Auto 0.2 % (0.2-2.0); Eosinophils Percent Auto 0.2 % (0.9-7.0); Hematocrit 31.3 % (36.0-48.0); Hemoglobin 10.4 g/dL (12.0-16.0); Immature Granulocytes Abs Auto 0.04 10^3/uL (0.00-0.03); Immature Granulocytes Pct Auto 0.5 % (0.0-0.5); Lymphocytes Absolute Auto 0.9 10^3/uL (1.2-3.8); Lymphocytes Percent Auto 9.8 % (20.5-60.0); Mean Corpuscular HGB Conc 33.2 g/dL (29.9-35.2); Mean Corpuscular Volume 93.2 fL (81.0-99.0); Mean Platelet Volume 12.5 fL (9.5-13.5); Monocytes Absolute Auto 0.8 10^3/uL (0.3-0.8); Monocytes Percent Auto 8.9 % (1.7-12.0); Neutrophils Percent Auto 80.4 % (43.0-75.0); Platelet Count 174 10^3/uL (150-450); Red Blood Count 3.36 10^6/uL (4.20-5.40); Red Cell Distribution Width 15.4 % (11.0-15.0); White Blood Count 8.7 10^3/uL (4.0-11.0)
[2024-11-21 09:57] LABS: Alanine Aminotransferase 18 U/L (14-59); Albumin Level 3.7 g/dL (3.4-5.0); Alkaline Phosphatase 78 U/L (46-116); Aspartate Amino Transferase 22 U/L (15-37); BUN Creatinine Ratio 16.2; Bilirubin Total 0.2 mg/dL (0.2-1.0); Calcium 9.4 mg/dL (8.5-10.1); Carbon Dioxide 24.9 mmol/L (21.0-32.0); Chloride 103 mmol/L (98-107); Estimated GFR (African America 30 (>=60 mL/min/1.73m^2); Estimated GFR (Non-African Ame 25 (>=60 mL/min/1.73m^2); Globulin 3.8 g/dL; Glucose 153 mg/dL (74-106); Magnesium 1.7 mg/dL (1.8-2.4); Potassium 3.9 mmol/L (3.5-5.1); Sodium 140 mmol/L (136-145); Total Protein 7.5 g/dL (6.4-8.2)
[2024-11-21 10:15] LABS: Percent Iron Saturation 19.2 %
[2024-11-21] MEDS: DEXAMETHASONE SOD PHOS 4 MG/ML VIAL 8 MG IV (11:22)
[2024-11-21] MEDS: 0.9 % SODIUM CHLORIDE 1,000 ML 666.667 ML IV (11:23)
--- NOTE | 2024-11-21 11:53 | PC.NURSE ---
1122: Medicated with Dexadron 8mg IVP as ordered. IV NS infusion initiated at this time. Pt. with flat, depressed affect. Pt. relays this is just a lot . Comfort and reassurance provided. Ordered lunch tray for pt.
[2024-11-21] MEDS: HEPARIN SODIUM (PORCINE) PF LOCK FLUSH 500 UNIT/5 ML SYRINGE IV (13:00)
== END 2024-11-22 23:59 | disposition home or self-care (01) ==
LOC: HEMC 07:30
PROVIDERS: PCP Family Medicine; Visit Provider Internal Medicine Hematology & Oncology
DX: C34.11 Malignant neoplasm of upper lobe, right bronchus or lung (principal); C77.1 Secondary and unspecified malignant neoplasm of intrathoracic lymph nodes; C78.7 Secondary malignant neoplasm of liver and intrahepatic bile duct; C79.51 Secondary malignant neoplasm of bone; R11.2 Nausea with vomiting, unspecified; D70.1 Agranulocytosis secondary to cancer chemotherapy; Z79.899 Other long term (current) drug therapy; D64.81 Anemia due to antineoplastic chemotherapy; D50.9 Iron deficiency anemia, unspecified; K90.9 Intestinal malabsorption, unspecified; Z90.710 Acquired absence of both cervix and uterus; Z86.16 Personal history of COVID-19
CPT/HCPCS: 36591; 80053; 82728; 83540; 83550; 83735; 84443; 85025; 96372; 96374; G0463; J0897; J1100; J1642

== ENCOUNTER 2024-12-19 07:34 | Outpatient (RCR) | payer MEDICARE, SELFPAY ==
[2024-12-05 09:25] VITALS: BP 155/91; PULSE 65; TEMP 36.2; O2SAT 96
[2024-12-05 09:44] LABS: Basophils Percent Auto 0.3 % (0.2-2.0); Eosinophils Absolute Auto 0.1 10^3/uL (0.0-0.7); Eosinophils Percent Auto 1.1 % (0.9-7.0); Hematocrit 31.3 % (36.0-48.0); Hemoglobin 10.4 g/dL (12.0-16.0); Immature Granulocytes Abs Auto 0.04 10^3/uL (0.00-0.03); Immature Granulocytes Pct Auto 0.6 % (0.0-0.5); Lymphocytes Absolute Auto 1.4 10^3/uL (1.2-3.8); Lymphocytes Percent Auto 21.2 % (20.5-60.0); Mean Corpuscular HGB Conc 33.2 g/dL (29.9-35.2); Mean Corpuscular Hemoglobin 31.1 pg (26.7-34.0); Mean Corpuscular Volume 93.7 fL (81.0-99.0); Mean Platelet Volume 10.5 fL (9.5-13.5); Monocytes Percent Auto 14.5 % (1.7-12.0); Neutrophils Absolute Auto 4.1 10^3/uL (1.4-6.5); Neutrophils Percent Auto 62.3 % (43.0-75.0); Platelet Count 214 10^3/uL (150-450); Red Blood Count 3.34 10^6/uL (4.20-5.40); Red Cell Distribution Width 14.6 % (11.0-15.0); White Blood Count 6.6 10^3/uL (4.0-11.0)
[2024-12-05 10:02] LABS: Alanine Aminotransferase 18 U/L (14-59); Albumin Globulin Ratio 0.9; Albumin Level 3.6 g/dL (3.4-5.0); Alkaline Phosphatase 90 U/L (46-116); Anion Gap 14.9; Aspartate Amino Transferase 21 U/L (15-37); Bilirubin Total 0.3 mg/dL (0.2-1.0); Calcium 8.6 mg/dL (8.5-10.1); Carbon Dioxide 24.7 mmol/L (21.0-32.0); Chloride 104 mmol/L (98-107); Estimated GFR (African America 34 (>=60 mL/min/1.73m^2); Estimated GFR (Non-African Ame 28 (>=60 mL/min/1.73m^2); Globulin 4.1 g/dL; Glucose 98 mg/dL (74-106); Potassium 3.6 mmol/L (3.5-5.1); Sodium 140 mmol/L (136-145); Total Protein 7.7 g/dL (6.4-8.2)
[2024-12-19 09:57] VITALS: BP 162/91; PULSE 65; TEMP 36.3; O2SAT 98
--- NOTE | 2024-12-19 10:04 | PC.NURSE ---
0958: Dr. Chester to chair side for f/u appt. Casandra figeuroa.
[2024-12-19 10:12] LABS: Basophils Percent Auto 0.3 % (0.2-2.0); Eosinophils Absolute Auto 0.1 10^3/uL (0.0-0.7); Eosinophils Percent Auto 0.9 % (0.9-7.0); Hematocrit 30.1 % (36.0-48.0); Hemoglobin 9.8 g/dL (12.0-16.0); Immature Granulocytes Abs Auto 0.04 10^3/uL (0.00-0.03); Immature Granulocytes Pct Auto 0.6 % (0.0-0.5); Lymphocytes Percent Auto 14.6 % (20.5-60.0); Mean Corpuscular HGB Conc 32.6 g/dL (29.9-35.2); Mean Corpuscular Hemoglobin 30.6 pg (26.7-34.0); Mean Corpuscular Volume 94.1 fL (81.0-99.0); Mean Platelet Volume 13.2 fL (9.5-13.5); Monocytes Absolute Auto 0.9 10^3/uL (0.3-0.8); Monocytes Percent Auto 13.9 % (1.7-12.0); Neutrophils Absolute Auto 4.7 10^3/uL (1.4-6.5); Neutrophils Percent Auto 69.7 % (43.0-75.0); Platelet Count 131 10^3/uL (150-450); Red Cell Distribution Width 13.6 % (11.0-15.0); White Blood Count 6.7 10^3/uL (4.0-11.0)
[2024-12-19 10:27] LABS: Alanine Aminotransferase 18 U/L (14-59); Albumin Globulin Ratio 0.8; Albumin Level 3.5 g/dL (3.4-5.0); Alkaline Phosphatase 101 U/L (46-116); Anion Gap 15.5; Aspartate Amino Transferase 23 U/L (15-37); BUN Creatinine Ratio 11.2; Bilirubin Total 0.3 mg/dL (0.2-1.0); Calcium 8.8 mg/dL (8.5-10.1); Chloride 105 mmol/L (98-107); Estimated GFR (African America 41 (>=60 mL/min/1.73m^2); Estimated GFR (Non-African Ame 34 (>=60 mL/min/1.73m^2); Globulin 4.2 g/dL; Glucose 110 mg/dL (74-106); Potassium 4.5 mmol/L (3.5-5.1); Sodium 141 mmol/L (136-145); Total Protein 7.7 g/dL (6.4-8.2)
[2024-12-19] MEDS: DENOSUMAB 120 MG/1.7 ML VIAL SQ (11:25)
[2024-12-19] MEDS: HEPARIN SODIUM (PORCINE) PF LOCK FLUSH 500 UNIT/5 ML SYRINGE IV (11:30)
== END 2024-12-19 14:21 | disposition home or self-care (01) ==
LOC: HEMC 07:34
PROVIDERS: PCP Family Medicine; Visit Provider Internal Medicine Hematology & Oncology
DX: C34.11 Malignant neoplasm of upper lobe, right bronchus or lung (principal); C77.1 Secondary and unspecified malignant neoplasm of intrathoracic lymph nodes; C78.7 Secondary malignant neoplasm of liver and intrahepatic bile duct; C79.51 Secondary malignant neoplasm of bone; R11.2 Nausea with vomiting, unspecified; D64.9 Anemia, unspecified; D69.6 Thrombocytopenia, unspecified; D70.1 Agranulocytosis secondary to cancer chemotherapy; Z79.899 Other long term (current) drug therapy; D64.81 Anemia due to antineoplastic chemotherapy; D50.9 Iron deficiency anemia, unspecified; K90.9 Intestinal malabsorption, unspecified; Z63.4 Disappearance and death of family member; Z86.16 Personal history of COVID-19; Z90.710 Acquired absence of both cervix and uterus; R05.3 Chronic cough; N17.9 Acute kidney failure, unspecified
CPT/HCPCS: 36591; 80053; 85025; 96372; G0463; J0897; J1642

== ENCOUNTER 2025-01-16 07:40 | Outpatient (RCR) | payer MEDICARE, SELFPAY ==
[2025-01-02 09:08] VITALS: BP 155/92; PULSE 71; TEMP 36.3; O2SAT 97
[2025-01-02 09:30] LABS: Basophils Percent Auto 0.3 % (0.2-2.0); Eosinophils Absolute Auto 0.1 10^3/uL (0.0-0.7); Eosinophils Percent Auto 1.2 % (0.9-7.0); Hematocrit 27.6 % (36.0-48.0); Hemoglobin 9.1 g/dL (12.0-16.0); Immature Granulocytes Abs Auto 0.05 10^3/uL (0.00-0.03); Immature Granulocytes Pct Auto 0.7 % (0.0-0.5); Lymphocytes Absolute Auto 1.3 10^3/uL (1.2-3.8); Lymphocytes Percent Auto 18.2 % (20.5-60.0); Mean Corpuscular Hemoglobin 30.6 pg (26.7-34.0); Mean Corpuscular Volume 92.9 fL (81.0-99.0); Mean Platelet Volume 11.9 fL (9.5-13.5); Monocytes Percent Auto 14.3 % (1.7-12.0); Neutrophils Absolute Auto 4.5 10^3/uL (1.4-6.5); Neutrophils Percent Auto 65.3 % (43.0-75.0); Platelet Count 195 10^3/uL (150-450); Red Blood Count 2.97 10^6/uL (4.20-5.40); Red Cell Distribution Width 12.9 % (11.0-15.0); White Blood Count 6.9 10^3/uL (4.0-11.0)
[2025-01-02 09:41] LABS: Alanine Aminotransferase 15 U/L (14-59); Albumin Globulin Ratio 0.8; Albumin Level 3.1 g/dL (3.4-5.0); Alkaline Phosphatase 100 U/L (46-116); Anion Gap 14.3; Aspartate Amino Transferase 16 U/L (15-37); BUN Creatinine Ratio 13.9; Bilirubin Total 0.2 mg/dL (0.2-1.0); Calcium 8.7 mg/dL (8.5-10.1); Carbon Dioxide 25.7 mmol/L (21.0-32.0); Chloride 104 mmol/L (98-107); Estimated GFR (African America 44 (>=60 mL/min/1.73m^2); Estimated GFR (Non-African Ame 36 (>=60 mL/min/1.73m^2); Glucose 102 mg/dL (74-106); Sodium 140 mmol/L (136-145); Total Protein 7.1 g/dL (6.4-8.2)
[2025-01-02] MEDS: EPOETIN ALFA 20,000 UNIT/2 ML VIAL 40000 UNIT SUBQ (09:59)
--- NOTE | 2025-01-02 10:12 | PC.NURSE ---
1010 irons studies drawn from port, flushed with ns and heparin lock flush, deaccessed, tolerated well.
[2025-01-02 10:58] LABS: Percent Iron Saturation 13.8 %
[2025-01-09 10:14] LABS: Hemoglobin 9.6 g/dL (12.0-16.0); Mean Corpuscular HGB Conc 33.1 g/dL (29.9-35.2); Mean Corpuscular Volume 93.5 fL (81.0-99.0); Mean Platelet Volume 12.7 fL (9.5-13.5); Platelet Count 171 10^3/uL (150-450); Red Cell Distribution Width 13.9 % (11.0-15.0); White Blood Count 5.3 10^3/uL (4.0-11.0)
[2025-01-09 10:23] LABS: Anion Gap 11.1; BUN Creatinine Ratio 12.1; Calcium 8.4 mg/dL (8.5-10.1); Carbon Dioxide 26.4 mmol/L (21.0-32.0); Chloride 101 mmol/L (98-107); Estimated GFR (African America 42 (>=60 mL/min/1.73m^2); Estimated GFR (Non-African Ame 35 (>=60 mL/min/1.73m^2); Glucose 107 mg/dL (74-106); Potassium 3.5 mmol/L (3.5-5.1); Sodium 135 mmol/L (136-145)
[2025-01-09 10:40] LABS: Basophils Abs Manual 0.05 10^3/uL (0.00-0.10); Eosinophils Absolute Manual 0.05 10^3/uL (0.00-0.70); Lymphocytes Absolute Manual 0.74 10^3/uL (1.20-3.80); Monocytes Absolute Manual 0.42 10^3/uL (0.30-0.80); Segmented Neut Absolute Manual 4.02 10^3/uL (1.4-6.5)
[2025-01-09] MEDS: EPOETIN ALFA 20,000 UNIT/2 ML VIAL 40000 UNIT SUBQ (10:40)
[2025-01-09] MEDS: HEPARIN SODIUM (PORCINE) PF LOCK FLUSH 500 UNIT/5 ML SYRINGE IV (10:41)
--- NOTE | 2025-01-09 10:56 | PC.NURSE ---
1015: Pt. orders breakfast. Denies need or c/o.
--- NOTE | 2025-01-09 10:56 | PC.NURSE ---
1040: Medicated with Epogen as ordered. Tolerated without c/o. Breakfast tray provided.
[2025-01-16 09:54] LABS: Basophils Percent Auto 0.3 % (0.2-2.0); Eosinophils Absolute Auto 0.1 10^3/uL (0.0-0.7); Hematocrit 35.3 % (36.0-48.0); Hemoglobin 11.1 g/dL (12.0-16.0); Immature Granulocytes Abs Auto 0.03 10^3/uL (0.00-0.03); Immature Granulocytes Pct Auto 0.5 % (0.0-0.5); Lymphocytes Absolute Auto 0.9 10^3/uL (1.2-3.8); Lymphocytes Percent Auto 15.9 % (20.5-60.0); Mean Corpuscular HGB Conc 31.4 g/dL (29.9-35.2); Mean Corpuscular Hemoglobin 30.4 pg (26.7-34.0); Mean Corpuscular Volume 96.7 fL (81.0-99.0); Mean Platelet Volume 12.9 fL (9.5-13.5); Monocytes Absolute Auto 0.9 10^3/uL (0.3-0.8); Monocytes Percent Auto 15.9 % (1.7-12.0); Neutrophils Absolute Auto 3.9 10^3/uL (1.4-6.5); Neutrophils Percent Auto 66.4 % (43.0-75.0); Platelet Count 145 10^3/uL (150-450); Red Blood Count 3.65 10^6/uL (4.20-5.40); White Blood Count 5.8 10^3/uL (4.0-11.0)
[2025-01-16 10:10] LABS: Alanine Aminotransferase 14 U/L (14-59); Albumin Globulin Ratio 0.7; Albumin Level 2.9 g/dL (3.4-5.0); Alkaline Phosphatase 127 U/L (46-116); Anion Gap 12.7; Aspartate Amino Transferase 14 U/L (15-37); BUN Creatinine Ratio 10.7; Bilirubin Total 0.3 mg/dL (0.2-1.0); Calcium 8.3 mg/dL (8.5-10.1); Carbon Dioxide 26.5 mmol/L (21.0-32.0); Chloride 103 mmol/L (98-107); Estimated GFR (African America 42 (>=60 mL/min/1.73m^2); Estimated GFR (Non-African Ame 35 (>=60 mL/min/1.73m^2); Globulin 4.2 g/dL; Glucose 104 mg/dL (74-106); Potassium 4.2 mmol/L (3.5-5.1); Sodium 138 mmol/L (136-145); Total Protein 7.1 g/dL (6.4-8.2)
[2025-01-16] MEDS: HEPARIN SODIUM (PORCINE) PF LOCK FLUSH 500 UNIT/5 ML SYRINGE IV (10:27)
== END 2025-01-22 23:59 | disposition home or self-care (01) ==
LOC: HEMC 07:40
PROVIDERS: PCP Family Medicine; Visit Provider Internal Medicine Hematology & Oncology
DX: C34.11 Malignant neoplasm of upper lobe, right bronchus or lung (principal); R11.2 Nausea with vomiting, unspecified; C77.1 Secondary and unspecified malignant neoplasm of intrathoracic lymph nodes; C78.7 Secondary malignant neoplasm of liver and intrahepatic bile duct; D64.9 Anemia, unspecified; D69.6 Thrombocytopenia, unspecified; D70.1 Agranulocytosis secondary to cancer chemotherapy; Z79.899 Other long term (current) drug therapy; D64.81 Anemia due to antineoplastic chemotherapy; D50.9 Iron deficiency anemia, unspecified; K90.9 Intestinal malabsorption, unspecified; Z86.16 Personal history of COVID-19; Z90.710 Acquired absence of both cervix and uterus; N28.9 Disorder of kidney and ureter, unspecified; N17.9 Acute kidney failure, unspecified
CPT/HCPCS: 36415; 36591; 80048; 80053; 82728; 83540; 83550; 85007; 85025; 85027; 96372; G0463; J0885; J1642

== ENCOUNTER 2025-01-31 12:48 | Outpatient (OUT) | payer MEDICARE, SELFPAY ==
--- OUTSIDE RECORDS SUMMARY | 2025-01-16 05:30 | XMS_ITS ---
Author Organization The [facility] in [place] Address [address] [place] [address] Care Team Providers Care Striper Spray Gun Name Role Phone Jerod Baker Primary Care Provider Kristi Chester Unavailable [phone] REASON FOR VISIT Epoetin jose cruz, Non-ESRD (Procrit) Encounters Encounter Location Date Provider Diagnosis [facility] Oncology [address] [place] [phone] 01/16/2025 Kristi Chester Plan Of Treatment Next Appt Details Provider Name:Kristi Chester , 02/06/2025 09:00:00 AM, [address] [place] [address], [phone], Provider Name:Kristi Chester , 02/06/2025 09:15:00 AM, [address] [place] [address], [phone], Progress Notes * Isela SELFDOB:1955 (69 yo F)Acc No.[id number]:01/16/2025 UNLOCKED PROGRESS NOTE Progress Note Patient: Isela HOLLID[place] Provider: Stewart Chester M.D. :1955 A ge:69 Y S ex:Female Date:01/16/2025 Address:[address] [place] [phone] Pcp:Jerod M Hoy Subjective: * Chief Complaints: * 1 . Epoetin jose cruz, Non-ESRD (Procrit). * Medical History: Objective: * Vitals: Assessment: Plan: * Treatment: * * Electronic signature of Carlitos Chester MD, [id number] on 01/31/2025 at 12:50 PM EDT Sign off status: Pending Visit Status: C ANC (Cancelled) * Provider: Stewart Chester M.D. Date: 0 01/16/2025 Generated for Tanya bhatia/Hira/eTransmitting on: 0 01/31/2025 12:50 PM EDT
--- OUTSIDE RECORDS SUMMARY | 2025-01-16 05:30 | XMS_ITS ---
Author Organization The [facility] in [place] Address [address] [place] [address] Care Team Providers Care Aircraft Maintenance Supervisor Name Role Phone Jerod Baker Primary Care Provider Kristi Chester Unavailable [phone] REASON FOR VISIT MD Encounters Encounter Location Date Provider Diagnosis [facility] Oncology [address] [place] [phone] 01/16/2025 Kristi Chester Plan Of Treatment Next Appt Details Provider Name:Kristi Chester , 02/06/2025 09:00:00 AM, [address] [place] [address], [phone], Provider Name:Kristi Chester , 02/06/2025 09:15:00 AM, [address] [place] [address], [phone], Progress Notes * Isela SELFDOB:1955 (69 yo F)Acc No.[id number]:01/16/2025 UNLOCKED PROGRESS NOTE Progress Notes Patient: Isela HOLLIDAY Provider: Stewart Chester M.D. :1955 A ge:69 Y S ex:Female Date:01/16/2025 Address:[address] [place] [phone] Pcp:Jerod Baker Subjective: * Chief Complaints: * 1 . MD. * Medical History: Objective: * Vitals: Assessment: Plan: * Treatment: * * Electronic signature of Carlitos Chester MD, [id number] on 01/31/2025 at 12:50 PM EDT Sign off status: Pending Visit Status: P EN (Pending) * Provider: Stewart Chester M.D. Date: 0 01/16/2025 Generated for Tanya bhatia/Hira/Cherry on: 0 01/31/2025 12:50 PM EDT
--- OUTSIDE RECORDS SUMMARY | 2025-01-23 05:30 | XMS_ITS ---
Author Organization The [facility] in [place] Address [address] [place] [address] Care Team Providers Care Mattress Specialist Name Role Phone Jerod Baker Primary Care Provider Kristi Chester Unavailable [phone] REASON FOR VISIT Denosumab (Xgeva) Encounters Encounter Location Date Provider Diagnosis [facility] Oncology [address] [place] [phone] 01/23/2025 Kristi Chester Plan Of Treatment Next Appt Details Provider Name:Kristi Chester , 02/06/2025 09:00:00 AM, [address] [place] [address], [phone], Provider Name:Kristi Chester , 02/06/2025 09:15:00 AM, [address] [place] [address], [phone], Progress Notes * Isela SELFDOB:1955 (69 yo F)Acc No.[id number]:01/23/2025 UNLOCKED PROGRESS NOTE Progress Note Patient: Isela HOLLIDAY Provider: Stewart Chester M.D. :1955 A ge:69 Y S ex:Female Date:01/23/2025 Address:[address] [place] [phone] Pcp:Jerod Baker Subjective: * Chief Complaints: * 1 . Denosumab (Xgeva). * Medical History: Objective: * Vitals: Assessment: Plan: * Treatment: * * Electronic signature of Carlitos Chester MD, [id number] on 01/31/2025 at 12:50 PM EDT Sign off status: Pending Visit Status: P EN (Pending) * Provider: Stewart Chester M.D. Date: 01/23/2025 Generated for Tanya bahtia/Hira/eTransmitting on: 01/31/2025 12:50 PM EDT
--- OUTSIDE RECORDS SUMMARY | 2025-01-25 11:42 | XMS_ITS | Continuity of Care Document ---
Author Organization [facility] Address [address] [place] [address] Phone Care Team Providers Care Melting Furnace Skimmer Name Role Phone Mark Baker MD Primary Care Provider Irvin Diego Attending Provider Care Teams Patient Care Team Team Status: Active Member Role Status Dates Mark Baker MD Primary Care Provider Active Patient Care Team Team Status: Inactive Member Role Status Dates Mark Baker MD Primary Care Provider Active Start: January 25, 2025 End: January 25, 2025 Daniella Diego MD Attending Provider Active Start : January 25, 2025 End: January 25, 2025 Chief Complaint and Reason for Visit Chief Complaint Admit Date RENAL 3 MONTH F/U January 25, 2025 2:43p m Reason for Visit Admit Date Anemia of chronic disease January 25, 2025 2:43pm Hypokalemia January 25, 2025 2:43p m Lung cancer January 25, 2025 2:43p m Stage 3 chronic kidney disease January 25, 2025 2:43pm Allergies, Adverse Reactions, Alerts Allergen Type Severity Reaction Last Updated Verified Status No Known Allergies Allergy Unknown January 24, 2025 6:10pm Yes Active Social History Smoking Status Status Start Date End Date Date of Observa tion Never smoked tobacco (finding) July 05, 2024 9:36am Observation Status Observation Response Date of Response Legal Sex Female (finding) Sex Assigned At Female 1955 Family History Relationship Condition Age at Onset Recorded Date/T lary father Alzheimer's dementia Unknown Problems Active Problems Medical Problem Onset Date Status LEIDA (acute kidney injury) Unknown Active Anemia of chronic disease Unknown Active Lung cancer Unknown Active Hypokalemia Unknown Active Medications Medication Status Dose Units Route Directions Qty Days St art Date Stop Date End Date Instructions Adherence Potassium Chloride 20 mEq tablet extended release Active 20 MEQ PO daily [facility] 2023 1:00am Complies with drug therapy Fentanyl 25 mcg/hr patch 72 hour Discont inued 1 PATCH TRANSD ERML Every 72 hours [facility] 2023 1:00am January 25, 2025 3:22p m Acetaminoph en-Codeine 300-30 mg tablet Discont inued 2 TAB PO Every 8 hours as needed [facility] 2023 1:00am October 09, 2024 3:25p m Dexamethaso ne 2 mg tablet Discont inued 2 MG PO Daily [facility] 2023 1:00am January 25, 2025 3:25p m Ondansetron 4 mg tablet,disi ntegrating Active 4 MG PO Twice daily as needed [facility] 2023 1:00am Complies with drug therapy Dexamethaso ne 2 mg tablet Active 2 MG PO Daily as needed January 25, 2025 3:22pm Complies with drug therapy Metoprolol Tartrate 50 mg tablet Discont inued 50 MG PO Twice daily [facility] 2024 1:00am January 25, 2025 3:25p m Prochlorper azine Maleate (Compazine) 10 mg tablet Discont inued 10 MG PO Twice daily as needed [facility] 2024 1:00am January 25, 2025 3:23p m Magnesium Oxide 250 mg magnesium tablet Discont inued 250 MG PO Twice daily 2024 1:00am January 25, 2025 3:24p m Prednisone 10 mg tablet Discont inued 10 MG PO As Directed [facility] 2024 1:00am January 25, 2025 3:23p m see taper instructions Metoprolol Tartrate 50 mg tablet Active 100 MG PO Twice daily January 25, 2025 3:23pm Complies with drug therapy Apixaban (Eliquis) 5 mg tablet Discont inued 5 MG PO Twice daily October 09, 2024 12:00a m January 25, 2025 3:24p m Metoprolol Tartrate 100 mg tablet Active 100 MG PO Twice daily January 25, 2025 12:00a m Complies with drug therapy Citalopram 10 mg tablet Active 10 MG PO Daily January 25, 2025 12:00a m Complies with drug therapy Levothyroxi ne 75 mcg tablet Active 75 MCG PO Daily January 25, 2025 12:00a m Complies with drug therapy Mirtazapine 15 mg tablet Active 15 MG PO Daily at bedtime January 25, 2025 12:00a m Complies with drug therapy Magnesium Oxide 400 mg magnesium capsule Active 400 MG PO Twice daily January 25, 2025 12:00a m Complies with drug therapy Apixaban (Eliquis) 2.5 mg tablet Active 2.5 MG PO Twice daily January 25, 2025 12:00a m Complies with drug therapy Vital Signs Vital Reading Result Reference Range Collection Date/Time Height 62 [in_i] January 25, 2025 3:20pm Weight 56.81 kg January 25, 2025 3:20pm Body Temperature 97.2 [degF] 97.6-99.0 January 25, 2 025 3:20pm Heart Rate 74 /min 60-100 January 25, 2025 3:20pm Respiratory rate 18 /min 12-January 25, 2 025 3:20pm Oxygen saturation by Pulse oximetry 96 % 95-10 0 January 25, 2025 3:20pm BP Systolic 138 mm[Hg] 100-140 January 25, 2025 3:20pm BP Diastolic 88 mm[Hg] 60-100 January 25, 2025 3:20pm BMI (Body Mass Index) 22.8 kg/m2 January 252024 3:20pm Advance Directives Advance Directive Response Recorded Date/ Time Advance Directives No May 18, 2024 10:00am Insurance Providers Guarantor Isela Renner Address [address] [place] [id number] Contact Info. Home Phone: Payer Policy Id Subscriber's Name Subscriber Id Effectiv e Date Expiration Date [employer] [facility] GINO [id number] Isela Renner [id number] Encounters Encounter Location(s) Arrival/Admit Date Discharge/Depart Date Provider(s) Departed Physician/Prov ider Office Visit -[facility] [place] January 25, 2025 2:43pm January 25, 2025 3:42pm Daniella Diego MD Recent Diagnosis Onset Date Admit Date Anemia of chronic disease Unknown January 252024 2:43pm Hypokalemia Unknown January 25, 2025 2 :43pm Lung cancer Unknown January 25, 2025 2 :43pm Stage 3 chronic kidney disease Unknown J paulino 2024 2:43pm Assessments Diagnosis Onset Date Resolution Status Admit Date Anemia of chronic disease acute January 25, 2025 2:43pm Hypokalemia acute January 25 2:43pm Lung cancer acute January 25 2:43pm Stage 3 chronic kidney disease nonea ctive January 25, 2025 2:43pm Plan of Treatment Author Daniella Diego [facility] Authored January 25, 2025 3:38p m The CKD likely due to the pa rtial recovery from LEIDA. 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 Her most recent serum creatinine is 1.3 mg/dL. She had hypokalemia likely due to the poor oral intake and GI losses. Continue oral potassium She has advanced malignancy. Advised continue follow-up with oncology. He currently follows with hematology. She receives VICKEY. Advised continue to follow with hematology. Future Tests Future scheduled test information is unavailable Pending Tests Pending diagnostic test information is unavailable Future Visits Future appointment information is unavailable Referrals to Other Providers Referral information is unavailable Future Procedures Future procedure information is unavailable Future Medications Future medication information is unavailable Patient Instructions Patient instructions are unavailable
--- OUTSIDE RECORDS SUMMARY | 2025-01-31 12:50 | XMS_ITS | Encounter Summary ---
Author Organization [facility] tem Address [id number] [address] [place] [address] Care Team Providers Care Linen Clerk Name Role Phone Mark Baker MD Primary Care Provider [phone] Reason for Referral * Diagnostic Imaging (Routine) - Pending Review Specialty Diagnoses / Procedures Referred By Contac t Referred To Contact Radiology Diagnoses LEIDA (acute kidney injury) Procedures IR percutaneous biopsy renal right IR percutaneous biopsy renal left Kristi Chester MD [address] [place] [address] [place] [id number] Phone: tel: fax: Referral ID Status Reason Start Date Expiration Date V isits Requested Visits Authorized [id number] Pending Review 08/29/2024 08/29/2025 1 1 Encounter Details Date Type Department Care Team (Late st Contact Info) Description 08/29/2024 Orders Only [facility] - Interventional Radiology [address] [place] [id number] Krsiti Chester MD [address] [place] [address] [place] [id number] LEIDA (acute kidney injury) ([facility]) (Primary Dx) Social History Tobacco Use Types Packs/Day Years Used Date Smoking Tobacco: Never Assessed Childcare Answer Date Recorded Childcare Unknown 01/04/2019 Employment Answer Date Recorded Employment Unknown 01/04/2019 Comments Unknown Sex and Gender Information Value Date Recorded Sex Assigned at Not on file Legal Sex Female 11:37 AM EDT Gender Identity Not on file Sexual Orientation Not on file documented as of this encounter Plan of Treatment Not on file documented as of this encounter Results * IR percutaneous biopsy renal right (09/13/2024 11:45 AM EST) Anatomical Region Laterality Modality IR Right X-Ray Angiograph y 09/13/2024 2:14 PM EST Narrative 09/13/2024 2:17 PM EST Indication: Acute kidney injury. Consent: Informed consent was obtained by myself from the alert and oriented patient. Patient understands procedure and all of her questions were answered. Timeout: [place] timeout verification procedure was performed. Moderate sedation: The patient's cardiopulmonary status was evaluated and the patient is suitable for moderate sedation. During the course of the procedure, the patient was sedated with Sublimaze 50 mcg intravenously and Versed 0.5 MG intravenously while being monitored with ECG, blood pressure monitoring, and pulse oximeter by appropriately trained personnel. 30 minutes of [id number] moderate sedation was provided by the same [...] Berna Penny MD on 09/13/2024 2:17 PM Procedure Note Berna Penny MD - 09/13/2024 Indication: Acute kidney injury. Consent: Informed consent was obtained by myself from the alert andoriented patient. Patient understands procedure and all of her questionswere answered. Timeout: [place] timeout verification procedure was performed. Moderate sedation: The patient's cardiopulmonary status was evaluatedand the patient is suitable for moderate sedation. During the course ofthe procedure, the patient was sedated with Sublimaze 50 mcgintravenously and Versed 0.5 MG intravenously while being monitoredwith ECG, blood pressure monitoring, and pulse oximeter by appropriately trainedpersonnel. 30 minutes of [id number]-[id number] moderate sedation was provided bythe same physician. Following the procedure, the patient was recoveredaccording to the moderate sedation policy. Sterile Technique: elements of maximal sterile barrier were followedincluding cap, mask, gown, gloves, hand hygiene, and 2% chlorohexidine forcutaneous antisepsis. PROCEDURE: Noncontrast CT images were obtained through lower pole kidneys.Automatic exposure control was utilized. Spot for needle passage wasselected over lower pole right kidney. Overlying skin was prepped anddraped in normal sterile fashion and anesthetized 1% lidocaine. 18-gaugeBard guide needle was advanced to the lower pole right kidney. Once needle was insatisfactory position multiple core biopsies were obtained. This wassubmitted to pathology and deemed adequate per pathology. Gelfoam slurrywas injected through the guiding needle prior to its removal. Very smallamount of perinephric bleeding present. Patient tolerated the procedure well withoutsignificant immediate complication. Estimated blood loss 10-15 mL. IMPRESSION: 1. Noncontrast CT guidance for biopsy lower pole right kidney with nosignificant immediate complication. Multiple noncontrast CT images wereobtained for localization purposes. Finalized by Berna Penny MD on 09/13/2024 2:17 PM us Kristi Chester MD IMG IR ORDERABLES Final Result documented in this encounter Visit Diagnoses Diagnosis LEIDA (acute kidney injury)- Primary LEIDA (acute kidney injury) documented in this encounter Care Teams Linen Clerk Relationship Specialty Start Date End Date Mark Baker MD [address] [place] [address] PCP - General Family Medicine 09/13/24 documented as of this encounter
--- OUTSIDE RECORDS SUMMARY | 2025-01-31 12:50 | XMS_ITS | Clinical Summary ---
Author Organization [facility] tem Address [id number] [address] [place] [address] Care Team Providers Care Delivery Professional Name Role Phone Mark Baker MD Primary Care Provider [phone] Allergies No known active allergies Medications magnesium oxide (MAGOX) 400 mg tablet Take 2 tablets (800 mg total) by mouth in the morning and 2 tablets (800 mg total) before bedtime. 08/30/2024 Active levothyroxine (SYNTHROID, LEVOTHROID) 75 MCG tablet Take 1 tablet (75 mcg total) by mouth in the morning. Active ondansetron (ZOFRAN) 4 mg tablet Take 1 tablet (4 mg total) by mouth every 8 (eight) hours as needed for nausea or vomiting. Active fentaNYL (DURAGESIC) 25 mcg/hr Place 1 patch on the skin every third day. Max Daily Amount: 1 patch Active bxervhyw-nqyp-B A-calcium &mins (THERAGRAN-M) 9 mg iron-400 mcg tablet Take 1 tablet by mouth in the morning. Active potassium chloride (KLOR-CON M 20) 20 MEQ CR tablet Take 1 tablet (20 mEq total) by mouth in the morning. Active prochlorperazin e (COMPAZINE) 10 mg tablet Take 1 tablet (10 mg total) by mouth every 8 (eight) hours as needed for nausea or vomiting. Active ibuprofen (MOTRIN) 600 mg tablet Take 1 tablet (600 mg total) by mouth in the morning and at bedtime. Active Social History Tobacco Use Types Packs/Day Years Used Date Smoking Tobacco: Never Assessed Childcare Answer Date Recorded Childcare Unknown 01/04/2019 Employment Answer Date Recorded Employment Unknown 01/04/2019 Comments No Sex and Gender Information Value Date Recorded Sex Assigned at Not on file Legal Sex Female 11:37 AM EDT Gender Identity Not on file Sexual Orientation Not on file Last Filed Vital Signs Vital Sign Reading Time Taken Comments Blood Pressure 124/71 09/13/2024 12:59 PM EST Pulse 82 09/13/2024 12:59 PM EST Temperature 36.9 C (98.4 F) 09/13/2024 9:39 AM EST Respiratory Rate 18 09/13/2024 12:59 PM EST Oxygen Saturation 100% 09/13/2024 12:59 PM EST Inhaled Oxygen Concentration - - Weight 60.3 kg (133 lb) 09/13/2024 9:39 AM EST Height 157.5 cm (5' 2 ) 09/13/2024 9:39 AM EST Body Mass Index 24.33 09/13/2024 9:39 AM EST Plan of Treatment Health Maintenance Due Date Last Done Comments Depression Screening 1968 Tobacco Screening 1968 DTaP,Tdap and Td Vaccines (1 - Tdap) 1975 Zoster (Shingles) Vaccine (1 of 2) 2006 Fall Risk Screening 2021 COVID-19 Vaccine (3 - 2023- season) 2024, 08/28/2020 Influenza Vaccine 03/26/2025 Adult BMI Screening 09/13/2025 09/13/2024 Medical Devices Not on file Insurance MEDICARE Care Teams Delivery Professional Relationship Specialty Start Date End Date Hoy, Mark M, MD [address] [place] [address] PCP - General Family Medicine 09/13/24
--- OUTSIDE RECORDS SUMMARY | 2025-01-31 12:51 | XMS_ITS | Clinical Summary ---
Author Organization [facility] Address [address] [place] [id number] Care Team Providers Care Supervisor Lead Refinery Name Role Phone Mark Baker MD Primary Care Provider [phone] Krisit Chester MD Unavailable [phone] Sarah Elkins RN Unavailable Unavailable Ana Magallon RN Unavailable Unavailable Allergies No known active allergies Medications fentaNYL (DURAGESIC) 25 mcg/hr Apply 1 Patch as directed every 72 hours. Active ibuprofen (MOTRIN) 600 mg tablet Take 600 mg by mouth two times a day as needed for pain. 4 Active levothyroxine (SYNTHROID) 75 mcg tablet Take 75 mcg by mouth once daily. 5 Active magnesium oxide 400 mg magnesium cap Take 400 mg by mouth two times a day. 5 Active metoprolol tartrate, short acting, (LOPRESSOR) 50 mg tablet Take 50 mg by mouth two times a day. 5 Active multivitamin tablet Take 1 tablet by mouth every morning. Active potassium chloride 20 mEq TbER Take 1 tablet by mouth every afternoon. 4 Active prochlorperazine (COMPAZINE) 10 mg tablet Take 10 mg by mouth every 8 hours as needed for nausea/vomit ing. 4 Active ondansetron orally disintegrating (ZOFRAN ODT) 4 mg disintegrating tablet Take 4 mg by mouth every 8 hours as needed for nausea/vomit ing. 4 Active Encounters Date Type Department Care Team Description 11/15/2024 4:30 PM EDT Visit (SP) Office Hematology/Oncology [address] [place] [address] Minerva Lindsay MD Malignant neoplasm of unspecified part of unspecified bronchus or lung (HCC) (Primary Dx) 11/15/2024 Travel 11/07/2024 Telephone Hematology/Oncology [address] [place] [address] Minerva Lindsay MD Junior Architect - Other from Last 3 Months Social History Tobacco Use Types Packs/Day Years Used Date Smoking Tobacco: Never Assessed PHQ-2 Answer Date Recorded PHQ-2 score 1 11/15/2024 Area Deprivation Index Answer Date Marcello rded National Score (1-100), lower number is lower ri sk 63 11/15/2024 State Score (1-10), lower number is lower risk 4 11/15/2024 Data from: https://www.neighborhoodatlas.medicine.[facility].edu/. Last address used for calculation [address] 11/15/2024 Comments Unknown Sex and Gender Information Value Date Recorded Sex Assigned at Not on file Legal Sex Female 9:10 AM EST Gender Identity Not on file Sexual Orientation Not on file Last Filed Vital Signs Vital Sign Reading Time Taken Comments Blood Pressure 171/89 11/15/2024 4:28 PM EDT Pulse 67 11/15/2024 4:28 PM EDT Temperature 36.7 C (98.1 F) 11/15/2024 4:28 PM EDT Respiratory Rate 18 11/15/2024 4:28 PM EDT Oxygen Saturation 99% 11/15/2024 4:28 PM EDT Inhaled Oxygen Concentration - - Weight 56.6 kg (124 lb 12.5 oz) 11/15/2024 4:28 PM EDT Height - - Body Mass Index - - Plan of Treatment Health Maintenance Due Date Last Done Comments Anxiety Screening 1974 Depression Screening 1974 Hepatitis C Screening 1974 DTaP,Tdap,Td Vaccine (1 - Tdap) [address] Colonography 2001 Cologuard (FIT-DNA) 2001 Colonoscopy 2001 Colorectal Cancer Screening 2001 Diabetes Screening 2001 Fecal Occult Blood 2001 Lipid Screening 2001 Sigmoidoscopy 2001 Pneumococcal Vaccine: 50+ (1 of 1 - PCV) 2006 Shingrix Vaccine (1 of 2) 2006 Bone Density Screening 2021 Covid-19 Vaccine (3 - season) 2024, 08/28/2020 Advance Directive Discussion 07/26/2024 Influenza Vaccine (#1) 2025 RSV Vaccine (1 - 1-dose 75+ series) 2031 Procedures Procedure Name Priority Date/Time Associated Diagnosis Comments CT OUTSIDE CD DICOM IMPORT 11/13/2024 EXTERNAL LAB 11/02/2024 1:49 PM EDT from Last 3 Months Results * OT-PET SKULL TO MID THIGH IMPORT (11/13/2024) Anatomical Region Laterality Modality Other 11/13/2024 Narrative 11/15/2024 3:36 AM EDT Images were obtained outside of [facility] Procedure Note Provider, [facility] [place] - 11/15/2024 Images were obtained outside of [facility] Provider RADIOLOGY Final Result * EXTERNAL LAB (11/02/2024 1:49 PM EDT) External Provider PA-C LABORATORY Final Res ult from Last 3 Months Insurance [address] [place] [address] [email or web address] Care Teams Supervisor Lead Refinery Relationship Specialty Start Date End Date Mark Baker MD [address] [place] [address] PCP - General Family Medicine 03/02/24 Kristi Chester MD [address] [place] [address] Referring Hematology/Oncology 08/15/24 Sarah Elkins, RN Specialty Junior Architect Hematology/Oncology 10/26/24 Ana Magallon, RN Specialty Junior Architect Hematology/Oncology 10/26/24
--- OUTSIDE RECORDS SUMMARY | 2025-01-31 12:51 | XMS_ITS | Encounter Summary ---
Author Organization [facility] Address [address] [place] [address] Care Team Providers Care Instructional Technology Coach Name Role Phone Mark Baker MD Primary Care Provider [phone] Kristi Chester MD Unavailable [phone] Sarah Elkins RN Unavailable Unavailable Ana Magallon RN Unavailable Unavailable Source Comments In the event this information is protected by the Federal Confidentiality of Alcohol and Drug AbusePatient Records regulations: The Federal rules restrict any use of the information to criminally investigate or prosecute any alcohol or drug abuse patient.[facility] Reason for Visit * Reason Comments [facility] - Other Appointment Encounter Details Date Type Department Care Team (Late st Contact Info) Description 10/24/2024 Telephone Hematology/Oncology [address] [place] [address] [place] [address] [place] [address] [facility] - Other (Appointment) Social History Tobacco Use Types Packs/Day Years Used Date Smoking Tobacco: Never Assessed Area Deprivation Index Answer Date Marcello rded National Score (1-100), lower number is lower ri sk 63 08/21/2024 State Score (1-10), lower number is lower risk 4 08/21/2024 Data from: https://www.neighborhoodatlas.[facility].edu/. Last address used for calculation [address] 08/21/2024 Comments Unknown Sex and Gender Information Value Date Recorded Sex Assigned at Not on file Legal Sex Female 9:10 AM EST Gender Identity Not on file Sexual Orientation Not on file documented as of this encounter Miscellaneous Notes * Telephone Encounter - Tatiana Sow - 10/24/2024 11:14 AM EDT Isela Renner('s) Katie/Dr. Chester's Office is calling Minerva Lindsay MD today regarding [facility] - Other (Appointment) Would like to speak with provider regarding setting up a follow up appointment for patient. Patient has been identified by name and birthdate. Requesting response back: [phone] (home) [phone] (cell) Tatiana Sow October 24, 2024 documented in this encounter Plan of Treatment Not on file documented as of this encounter Visit Diagnoses Not on filedocumented in this encounter Care Teams Instructional Technology Coach Relationship Specialty Start Date End Date Mark Baker MD [address] [place] [address] PCP - General Family Medicine 03/02/24 Kristi Chester MD [address] [place] [address] Referring Hematology/Oncology 08/15/24 Sarah Elkins, RN Specialty [facility] Hematology/Oncology 10/26/24 Ana Magallon, [place] Specialty [facility] Hematology/Oncology 10/26/24 documented as of this encounter
--- OUTSIDE RECORDS SUMMARY | 2025-01-31 12:51 | XMS_ITS | Encounter Summary ---
Author Organization [facility] Address [address] [place] [id number] Care Team Providers Care Research Analyst Name Role Phone Mark Baker MD Primary Care Provider [phone] Kristi Chester MD Unavailable [phone] Sarah Elkins RN Unavailable Unavailable Ana Magallon RN Unavailable Unavailable Source Comments In the event this information is protected by the Federal Confidentiality of Alcohol and Drug AbusePatient Records regulations: The Federal rules restrict any use of the information to criminally investigate or prosecute any alcohol or drug abuse patient.[facility] Reason for Visit * Reason Comments Duplicating Machine Servicer - Other Patient's kidne y function Encounter Details Date Type Department Care Team (Late st Contact Info) Description 09/26/2024 Telephone Hematology/Oncology [id number] [place] [address] [place] [address] [place] [address] Duplicating Machine Servicer - Other (Patient's kidney function) Social History Tobacco Use Types Packs/Day Years Used Date Smoking Tobacco: Never Assessed Area Deprivation Index Answer Date Marcello rded National Score (1-100), lower number is lower ri 63 08/21/2024 State Score (1-10), lower number is lower risk 4 08/21/2024 Data from: https://www.neighborhoodatlas.[facility].edu/. Last address used for calculation [address] [place] [address] [address] 08/21/2024 Comments Unknown Sex and Gender Information Value Date Recorded Sex Assigned at Not on file Legal Sex Female 9:10 AM EST Gender Identity Not on file Sexual Orientation Not on file documented as of this encounter Miscellaneous Notes * Telephone Encounter - Tatiana Sow - 09/26/2024 10:41 AM EST Isela Renner('s) Dr. Chester is calling Minerva Lindsay MD today regarding Duplicating Machine Servicer - Other (Patient's kidney function) Dr. Chester called to discuss patient's kidney function and medication with provider. Would like a call back Patient has been identified by name and birthdate. Requesting response back: [phone] (home) [phone] (cell) Tatiana Sow September 26, 2024 documented in this encounter Plan of Treatment Not on file documented as of this encounter Visit Diagnoses Not on filedocumented in this encounter Care Teams Research Analyst Relationship Specialty Start Date End Date Mark Baker MD [address] [place] [address] PCP - General Family Medicine 03/02/24 Kristi Chester MD [address] [place] [address] Referring Hematology/Oncology 08/15/24 Sarah Elkins, RN Specialty Duplicating Machine Servicer Hematology/Oncology 10/26/24 Ana Magallon, [place] Specialty Duplicating Machine Servicer Hematology/Oncology 10/26/24 documented as of this encounter
--- OUTSIDE RECORDS SUMMARY | 2025-01-31 12:51 | XMS_ITS | Patient Health Record ---
Author Organization [facility] in [place] Address [address] [place] [address] Care Team Providers Care Corporate Law Specialist Name Role Phone Jerod Baker Primary Care Provider Kristi Chester Unavailable [phone] Michelle Gutierrez Unavailable [phone] Allergies No Known Allergies Results Component Value Reference Range Notes PET/CT Skull Base to Mid-Thi gh Reviewed date:03/13/2024 07:39:48 AM Interpretation: Performing Lab: Notes/Report: COVID-19, Flu A+B IH (Not ye t reviewed by provider) Interpretation: Performing Lab: Notes/Report: COVID neg FLU A neg FLU B neg Control present CREATININE Reviewed date:02/06/2024 11:51:41 AM Interpretation: Performing Lab: Notes/Report: [facility] , Creatinine 0.77 0.55-1.02 mg/dL Estimated GFR ( Nya >60 >=60 Estimated GFR (Non- Cindy >60 >=60 Performing Lab: see note ML - [facility] LB CT CHEST W CON Reviewed date:02/07/2024 10:03:45 PM Interpretation: Performing Lab: Notes/Report: Source Facility: [facility]-[address] [place] [address] [place] [address] CT Scan Report Signed Patient: ISELA DE LA ROSA MR#: [id number] : 1955 Acct:[id number] Age/Sex: 68 / F ADM Date: 02/04/24 Loc: LAB Attending Dr: Brenda Baker M.D. Ordering Physician: Brenda Baker M.D. Date of Service: 02/04/24 Procedure(s): CT chest w con Accession Number(s): [id number] cc: Brenda Baker M.D. [address] [address] Patient Name: ISELA DE LA ROSA MRN: [facility]:[id number] date: 1955 Sex: F Assigned Patient Location: LAB Current Patient Location: Accession/Order Number: [id number] Exam Date: 02/04/2024 09:10 Report Date: 02/07/2024 07:54 At the request of: BRENDA BAKER Procedure: CT chest w con EXAMINATION: CT chest w con HISTORY: Abnormal Chest Xray R93.89 COMPARISON: 03/15/2024 TECHNIQUE: Multi-planar CT images were created with IV contrast. Axial, Coronal, and Sagittal images. Dose reduction techniques were achieved by using automated exposure control and/or adjustment of mA and/or kV according to patient size and/or use of iterative reconstruction technique. FINDINGS: LUNGS: Irregularly shaped soft tissue density/mass is observed in the right upper lobe this measures 5.8 x 6.2 cm on axial image #33, irregularly-shaped extending from the superior hilum to the pleural surface. Additional areas of groundglass attenuation surrounding this density. 1.4 cm groundglass opacity superior segment of the left lower lobe. Additional 6 mm solid nodule right lower lobe axial image 67. Few scattered smaller patchy opacities are noted. PLEURA: No mass, effusion, or pneumothorax. VASCULATURE: No abnormality. HARRISON: Right hilar lymphadenopathy MEDIASTINUM: Pretracheal and subcarinal lymphadenopathy CARDIAC: No enlargement or pericardial effusion Coronary arteries: Moderate calcifications AORTA: No aneurysm or dissection. CHEST WALL: No mass or axillary adenopathy. BONES: No bone lesion or fracture. LIMITED ABDOMEN: No suspicious findings. Limited images of the upper abdomen. OTHER: Negative. CT/CT chest w con IMPRESSION: 6.2 cm irregularly shaped right upper lobe mass with mediastinal and hilar lymphadenopathy. Additional patchy and nodular densities detailed above. Malignancy should be excluded Electronically authenticated by: JOAQUIM CHAN Date: 02/07/2024 07:54 Dictated By: Joaquim Chan M.D. Signed By: 02/07/24 0757 DD/ 075 TD/TT: Interchange Agent: The [address] [address] [address] Scan Report Signed Patient: ARNALDO DE LA ROSA MR#: [id number] : 1955 Acct:[id number] Age/Sex: 68 / F ADM Date: 02/04/24 Loc: LAB Attending Dr: Preeti Baker M.D. Ordering Physician: Brenda Baker M.D. Date of Service: 02/04/24 Procedure(s): CT wolf st w con Accession Number(s): [id number] cc: Brenda Baker M.D. [address] [address] Patient Name: ISELA DE LA ROSA MRN: [id number] date: 1955 Sex: F Assigned Patient Location: LAB Current Patient Location: Accession/Order Numb er: [id number] Exam Date: 02/04/2024 09:10 Report Date: 02/07/2024 07:54 At the request of: BRENDA BAKER Procedure: CT chest w con EXAMINATION: CT ches t w con HISTORY: Abnormal Ch est Xray R93.89 COMPARISON: 03/15/2024 TECHNIQUE: Multi-lorraine jessa CT images were created with IV contrast. Axial, Coronal, and Sagitta l images. Dose reduction techniques were achieved by using automated exposure control and/or adjustment of mA and/or kV according to patient size and/or use of iterative reconstruction technique. FINDINGS: LUNGS: Irregularly s haped soft tissue density/mass is observed in the right upper lobe this akhil ures 5.8 x 6.2 cm on axial image #33, irregularly-shaped extending from the superior hilum to the pleural surface. Additional areas of groundglass attenuat ion surrounding this density. 1.4 cm groundglass opacity superior segment of the left lower lobe. Additional 6 mm solid nodule right lower lobe axial roberto ge 67. Few scattered smaller patchy opacities are noted. PLEURA: No mass, effusion, or pneumothorax. VASCULATURE: No abnormality. HARRISON: Right hilar lymphadenopathy MEDIASTINUM: Pretrac heal and subcarinal lymphadenopathy CARDIAC: No enlargem ent or pericardial effusion Coronary arteries: Moderate calcifications AORTA: No aneurysm o r dissection. CHEST WALL: No mass or axillary adenopathy. BONES: No bone lesio n or fracture. LIMITED ABDOMEN: No suspicious findings. Limited images of the upper abdomen. OTHER: Negative. C T/CT chest w con IMPRESSION: 6.2 cm irregularly s haped right upper lobe mass with mediastinal and hilar lymphadenopathy. Additional patchy and nodular densities detailed above. Malignancy should be excluded Electronically authenticated by: JOAQUIM CHAN Date: 02/07/2024 07:54 Dictated By: Eduard Chan M.D. Signed By: 02/07/24756 DD/ 3 TD/TT: Interchange Agent: ECG 12 lead Reviewed date:02/12/2024 04:05:16 PM Interpretation: Performing Lab: Notes/Report: Source Facility: [place] [address] Electrocardiograph Report Signed Patient: ISELA DE LA ROSA MR#: [id number] : 1955 Acct:[id number] Age/Sex: 68 / F ADM Date: 02/10/24 Loc: [facility] Attending Dr: Michelle Gutierrez D.O. Ordering Physician: Michelle Gutierrez D.O. Date of Service: 02/10/24 Procedure(s): ECG 12 lead Accession Number(s): [id number] cc: [facility] Test Date: 2024-02-10 Pat Name: ISELA DE LA ROSA Department: Room: - Gender: Female [employer] Manager: : 1955 Requested By: Michelle Gutierrez Order Number: [id number] Terri MD: BRENDA BAKER Measurements Intervals Casanova Rate: 67 P: 48 IN: 187 QRS: 20 QRSD: 90 T: 45 QT: 406 QTc: 430 Interpretive Statements SINUS RHYTHM VOLTAGE CRITERIA FOR LVH [MEETS CRITERIA IN ONE OF: R(aVL), S(V1), R(V5), R(V5/V6)+S(V1)] No previous ECG available for comparison Electronically Signed On 02-11-2024 5:30:11 EDT by BRENDA BAKER Dictated By: Brenda Baker M.D. Signed By: 02/11/24529 DD/ 9 TD/TT: Interchange Agent: [place] [address] Electrocardiograph Report Signed Patient: ARNALDO DE LA ROSA MR#: [id number] : 1955 Acct:[id number] Age/Sex: 68 / F ADM Date: 02/10/24 Loc: PST Attending Dr: Michelle Gutierrez D.O. Ordering Physician: Michelle Gutierrez D.O. Date of Service: 02/10/24 Procedure(s): ECG 12 lead Accession Number(s): [id number] cc: [facility] Test Date: 2024-02-10 Pat Name: ISELA JOSUE Department: 76 Room: - Gender: Female [employer] Manager: : 1955 Requ ested By: Michelle Gutierrez Order Number: [id number] Reading MD: BRENDA BAKER Measurements Intervals Casanova Rate: 67 P: 48 IN: 187 QRS: 20 QRSD: 90 T: 45 QT: 406 QTc: 430 Interpretive Statements SINUS RHYTHM VOLTAGE CRITERIA FOR LVH [MEETS CRITERIA IN ONE OF: R(aVL), S(V1), R(V5), R(V5/V6)+S(V1)] No previous ECG avai lable for comparison Electronically Frida d On 02-11-2024 5:30:11 EDT by BRENDA BAKER Dictated By: Alireza Baker M.D. Signed By: 02/11/24529 DD/ 9 TD/TT: Interchange Agent: BRAD chest 1V Reviewed date:02/15/2024 01:41:14 PM Interpretation: Performing Lab: Notes/Report: Source Facility: [place] [address] [place] [address] XRay Report Signed Patient: ISELA DE LA ROSA MR#: [id number] : 1955 Acct:[id number] Age/Sex: 68 / F ADM Date: 02/15/24 Loc: SURGOUT Attending Dr: Michelle Gutierrez D.O. Ordering Physician: Michelle Gutierrez D.O. Date of Service: 02/15/24 Procedure(s): XR chest 1V Accession Number(s): [id number] cc: Brenda Baker M.D.; Michelle Gutierrez D.O. The [place] [id number] Patient Name: ISELA DE LA ROSA MRN: [id number] date: 1955 Sex: F Assigned Patient Location: [facility] Current Patient Location: [facility] Accession/Order Number: [id number] Exam Date: 02/15/2024 13:07 Report Date: 02/15/2024 13:24 At the request of: MICHELLE GUTIERREZ Procedure: XR chest 1V EXAMINATION: XR chest 1V HISTORY: Right lung mass, s/p bronchoscopy with biopsies COMPARISON: XR chest 01/14/2024 FINDINGS: LUNGS: Stable masslike opacity within lateral right upper lobe with new mild surrounding haziness/edema. Left lung is clear. VASCULATURE: No increased pulmonary vasculature. PLEURA: No pneumothorax, effusion, or pleural thickening. CARDIAC: No cardiomegaly or cardiac silhouette abnormality. MEDIASTINUM: No visible mass or adenopathy. BONES: No fracture or visible bone lesion. OTHER: Negative. XR/XR chest 1V IMPRESSION: 1. Right upper lobe mass with suspected mild adjacent pulmonary edema versus atelectasis versus blood products. 2. No pneumothorax. Electronically authenticated by: CARIE FERNANDEZ Date: 02/15/2024 13:24 Dictated By: Carie Fernandez M.D. Signed By: 02/15/24 1326 DD/ 1324 TD/TT: Interchange Agent: [place] [address] XRay Report Signed Patient: ARNALDO DE LA ROSA MR#: [id number] : 1955 Acct:[id number] Age/Sex: 68 / F ADM Date: 02/15/24 Loc: SURGOUT Attending Dr: Michelle Gutierrez D.O. Ordering Physician: Michelle Gutierrez D.O. Date of Service: 02/15/24 Procedure(s): XR chest 1V Accession Number(s): [id number] cc: Brenda Baker M.D. ; Michelle Gutierrez D.O. The [place] [id number] Patient Name: ISELA DE LA ROSA MRN: [id number] date: 1955 Sex: F [facility]igned [facility] Current Patient Loca tion: SURGOUT Accession/Order Numb er: [id number] Exam Date: 02/15/2024 13:07 Report Date: 02/15/2024 13:24 At the request of: MICHELLE GUTIERREZ Procedure: XR chest 1V EXAMINATION: XR chest 1V HISTORY: Right lung mass, s/p bronchoscopy with biopsies COMPARISON: XR chest 01/14/2024 FINDINGS: LUNGS: Stable massli ke opacity within lateral right upper lobe with new mild surrounding haziness/edema. Left lung is clear. VASCULATURE: No incr eased pulmonary vasculature. PLEURA: No pneumotho rax, effusion, or pleural thickening. CARDIAC: No cardiome alissa or cardiac silhouette abnormality. MEDIASTINUM: No visi ble mass or adenopathy. BONES: No fracture o r visible bone lesion. OTHER: Negative. X R/XR chest 1V IMPRESSION: 1. Right upper lobe mass with suspected mild adjacent pulmonary edema versus atelectasis versus b lood products. 2. No pneumothorax. Electronically authenticated by: CARIE FERNANDEZ Date: 02/15/2024 13:24 Dictated By: Carie Fernandez M.D. Signed By: 02/15/24 1326 DD/ 1324 TD/TT: Interchange Agent: HEMOGLOBIN Reviewed date:02/21/2024 12:41:55 PM Interpretation: Performing Lab: Notes/Report: [facility] , Hemoglobin 13.3 12.0-16.0 g/dL Performing Lab: see note ML - [facility] LB RT pulmonary function test Reviewed date:02/28/2024 07:32:37 AM Interpretation: Performing Lab: Notes/Report: Source Facility: [facility]-[address] [place] [address] [place] [address] Respiratory Report Signed Patient: ISELA DE LA ROSA MR#: [id number] : 1955 Acct:[id number] Age/Sex: 68 / F ADM Date: 02/18/24 Loc: CARD Attending Dr: Michelle Gutierrez D.O. Ordering Physician: Michelle Gutierrez D.O. Date of Service: 02/18/24 Procedure(s): RT pulmonary function test Accession Number(s): [id number] cc: [facility] Test Date: 2024-02-18 Pat Name: ISELA DE LA ROSA Department: Room: - Gender: Female [employer] Manager: Ernestina Santana RRT : 1955 Requested By: Michelle Gutierrez Order Number: [id number] Reading MD: Michelle Gutierrez Interpretive Statements Pulmonary function testing was completed according to ATS criteria. Findings were considered accurate and reproducible. Both pre- and post-bronchodilator values utilized for spirometry. Spirometry (based on pre-bronchodilator values): -FEV1/FVC: Low normal @ 73% -FEV1: Normal @ 98% -FVC: Normal @ 101% -IMZ37-95%: Low normal @ 83% -There is no significant bronchodilator response. Lung volumes by plethysmography (based on pre-bronchodilator values): -RV: Increased @ 160% -TLC: Increased @ 126% Diffusion capacity: -DLCO: Normal @ 109% when corrected for Hb 13.3g/dL Flow-volume loop: -'Scooping/coving' of the expiratory limb Impressions: -Technically normal spirometry though it trends towards mild obstruction. An elevated RV and TLC suggest air trapping and hyperinflation respectively. The diffusion capacity is normal. Overall testing suggests a mild obstructive lung disease. Clinical correlation required. Electronically Signed On 02-23-2024 16:50:21 EDT by Michelle Gutierrez Dictated By: Michelle Gutierrez D.O. Signed By: 02/23/24 1650 DD/ 1310 TD/TT: Interchange Agent: [place] [address] Respiratory Report Signed Patient: ARNALDO DE LA ROSA MR#: [id number] : 1955 Acct:[id number] Age/Sex: 68 / F ADM Date: 02/18/24 Loc: CARD Attending Dr: Michelle Gutierrez D.O. Ordering Physician: Michelle Gutierrez D.O. 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 Findings were considered accu rate and reproducible. Both pre- and post-bronchodilator values utilized for spirometry. Spirometry (based on pre-bronchodilator values): -FEV1/FVC: Low shiloh l @ 73% -FEV1: Normal @ 98% -FVC: Normal @ 101% -MJU28-46%: Low norm al @ 83% -There is no signifi cant bronchodilator response. Lung volumes by plethysmography (based on pre-bronchodilator values): -RV: Increased @ 160% -TLC: Increased @ 126% Diffusion capacity: -DLCO: Normal @ 109% when corrected for Hb 13.3g/dL Flow-volume loop: -'Scooping/coving' o f the expiratory limb Impressions: -Technically normal spirometry though it trends towards mild obstruction. An elevated RV and T LC suggest air trapping and hyperinflation respectively. The diffusion capaci ty is normal. Overall testing suggests a mild obstructive lung disease. Clinic al correlation required. Electronically Frida d On 02-23-2024 16:50:21 EDT by Michelle Gutierrez Dictated By: Malu Gutierrez D.O. Signed By: 02/23/24 1650 DD/ 1310 TD/TT: Interchange Agent: PET skull to mid thigh Reviewed date:03/14/2024 07:08:18 AM Interpretation: Performing Lab: Notes/Report: Source Facility: [place] [address] PET Report Signed Patient: ISELA DE LA ROSA MR#: [id number] : 1955 Acct:[id number] Age/Sex: 68 / F ADM Date: 03/06/24 Loc: PETCT Attending Dr: Michelle Gutierrez D.O. Ordering Physician: Michelle Gutierrez D.O. Date of Service: 03/06/24 Procedure(s): PET skull to mid thigh Accession Number(s): [id number] cc: Brenda Baker M.D.; Michelle Gutierrez D.O. [place] [address] Patient Name: ISELA DE LA ROSA MRN: [id number] date: 1955 Sex: F Assigned Patient Location: PETCT Current Patient Location: PETCT Accession/Order Number: [id number] Exam Date: 03/06/2024 15:00 Report Date: 03/09/2024 23:12 At the request of: MICHELLE GUTIERREZ Procedure: PET skull to mid thigh PET/CT: HISTORY: Lung cancer. COMPARISON: CT chest 02/04/2024. TECHNIQUE: The patient was injected with 11.35 mCi of F-18 fluorodeoxyglucose (FDG), and an emission scan was performed from the base of the skull to the mid thigh. Noncontrast CT was performed for attenuation correction and anatomic localization. The blood glucose level was 93 mg/dl. The uptake time was 51 minutes. FINDINGS: HEAD AND NECK: There is intense activity throughout the thyroid gland, image 57, SUV max 10.3 and the thyroid gland appears somewhat enlarged. There are a few small hypermetabolic right supraclavicular lymph nodes such as on image 59, SUV max 18.2 measuring 13 mm. CHEST: The SUVmax of the mediastinum = 3.0 using the patient's body weight as the normalization method. There is a hypermetabolic masslike opacity in the right upper lobe, image 78 with SUV max 9.8 measuring 5.3 x 4.8 cm. There is an area of more intense uptake in the superior aspect of the lesion on image 72 measuring 3.2 cm and the remainder of the opacity may be due to postobstructive atelectasis. Superior to the lesion there is also groundglass opacity with interlobular septal thickening which may be due to lymphangitic carcinomatosis. There is a groundglass nodule in the superior segment of the left lower lobe on image 82 measuring 10 mm with minimal uptake, SUV max 1.9 which is stable. A previously noted 6 mm right lower lobe pulmonary nodule is stable and below resolution limits of PET. There is also a stable left upper lobe nodule on image 86 measuring 3 mm. There are several hypermetabolic mediastinal and right hilar lymph nodes including for example a right paratracheal node on image 81 with SUV max 11.5 measuring 2.4 x 1.3 cm and a subcarinal node on image 93 with SUV max 10.5 measuring 2.4 x 1.3 cm. There is no definite hypermetabolic left hilar adenopathy. ABDOMEN AND PELVIS: There is a focus of increased activity in the right lobe of the liver on image 137 with SUV max 4.6. This corresponds to a hypodensity on CT measured at 5 mm. Otherwise physiologic distribution of activity. MUSCULOSKELETAL SYSTEM: Multiple hypermetabolic osseous lesions are seen in the cervical, thoracic and lumbar spine, right scapula, the ribs, sacrum, left iliac bone and right acetabulum. Index lesions include the left C2 vertebral body on image 60, SUV max 9 corresponding to a sclerotic lesion measuring 14 mm, the anterior L1 vertebral body on image 149, SUV max 12.6 measuring 1.7 x 0.9 cm and the sacrum on image 205 with SUV max 12.1 corresponding to a lytic lesion measuring 1.4 x 1.2 cm. PET/PET skull to mid thigh IMPRESSION: 1. Right upper lobe pulmonary malignancy with probable postobstructive atelectasis and adjacent lymphangitic carcinomatosis. 2. Right supraclavicular, mediastinal and right hilar kym metastases. 3. Multifocal osseous metastases. 4. Hypermetabolic focus in the right lobe of the liver consistent with a metastasis. 5. Minimally FDG avid groundglass nodule in the superior segment of the left lower lobe. This may be related to focal fibrosis, organizing pneumonia or malignancy such as adenocarcinoma. 6. Stable small additional pulmonary nodules which are below resolution limits of PET. 7. Enlarged thyroid gland with diffuse intense uptake which may be due to thyroiditis or Graves' disease. Electronically authenticated by: CARIE MOTTA Date: 03/09/2024 23:12 Dictated By: Carie Motta M.D. Signed By: 03/09/242314 DD/ 11 TD/TT: Interchange Agent: [place] [address] PET Report Signed Patient: ARNALDO DE LA ROSA MR#: [id number] : 1955 Acct:[id number] Age/Sex: 68 / F ADM Date: 03/06/24 Loc: PETCT Attending Dr: Michelle Gutierrez D.O. Ordering Physician: Michelle Gutierrez D.O. Date of Service: 03/06/24 Procedure(s): PET sk ull to mid thigh Accession Number(s): [id number] cc: Brenda Baker M.D. ; Michelle Gutierrez D.O. [place] [id number] Patient Name: ISELA DE LA ROSA MRN: [id number] date: 1955 Sex: F Assigned Patient Location: PETCT Current Patient Loca tion: PETCT Accession/Order Numb er: [id number] Exam Date: 03/06/2024 15:00 Report Date: 03/09/2024 23:12 At the request of: MICHELLE GUTIERREZ Procedure: PET skull to mid thigh PET/CT: HISTORY: Lung cancer. COMPARISON: CT chest 02/04/2024. TECHNIQUE: The patie nt was injected with 11.35 mCi of F-18 fluorodeoxyglucose (FDG), and an emissi on scan was performed from the base of the skull to the mid thigh. Noncontrast C T was performed for attenuation correction and anatomic localization. The bl ood glucose level was 93 mg/dl. The uptake time was 51 minutes. FINDINGS: HEAD AND NECK: There is intense activity throughout the thyroid gland, image 57, SUV max 10.3 and the thyroid gland appears somewhat enlarged. There are a few small hypermetab olic right supraclavicular lymph nodes such as on image 59, SUV max 18.2 measuri ng 13 mm. CHEST: The SUVmax of the mediastinum = 3.0 using the patient's body weight as the normalization me thod. There is a hypermetabolic masslike opacity in the right upper lobe, im age 79 with SUV max 9.8 measuring 5.3 x 4.8 cm. There is an area of more intense uptake in the superior aspect of the lesion on image 72 measuring 3.2 cm and the remainder of the opacity may be due to postobstructive atelectasis. Superio r to the lesion there is also groundglass opacity with interlobular septal thickening which may be due to lymphangitic carcinomatosis. There is a groundgla ss nodule in the superior segment of the left lower lobe on image 82 measuring 1 0 mm with minimal uptake, SUV max 1.9 which is stable. A previously noted 6 m m right lower lobe pulmonary nodule is stable and below resolution limits of PET. There is also a stable left upper lobe nodule on image 86 measuring 3 mm. There are several hypermetabolic mediastinal and right hilar lymph nodes including for example a right paratracheal node on image 81 with SUV max 11.5 measuring 2.4 x 1.3 cm and a subcarinal node on image 93 with SUV max 10.5 measuri ng 2.4 x 1.3 cm. There is no definite hypermetabolic left hilar adenopathy. ABDOMEN AND PELVIS: There is a focus of increased activity in the right lobe of the liver on image 1 37 with SUV max 4.6. This corresponds to a hypodensity on CT measured at 5 mm. Otherwise physiologic distribution of activity. MUSCULOSKELETAL SYST EM: Multiple hypermetabolic osseous lesions are seen in the cervical, thoracic a nd lumbar spine, right scapula, the ribs, sacrum, left iliac bone and right acetabulum. Index lesions include the left C2 vertebral body on image 60, DICKEY V max 9 corresponding to a sclerotic lesion measuring 14 mm, the anterior L1 vertebral body on image 149, SUV max 12.6 measuring 1.7 x 0.9 cm and the sacru m on image 205 with SUV max 12.1 corresponding to a lytic lesion measuring 1.4 x 1.2 cm. PET/PET skull to mid thigh IMPRESSION: 1. Right upper lobe pulmonary malignancy with probable postobstructive atelectasis and huma cent lymphangitic carcinomatosis. 2. Right supraclavic ular, mediastinal and right hilar kym metastases. 3. Multifocal osseou s metastases. 4. Hypermetabolic fo cus in the right lobe of the liver consistent with a metastasis. 5. Minimally FDG filippo d groundglass nodule in the superior segment of the left lower lobe. This may be related to focal fibrosis, organizing pneumonia or malignancy such as adenocarcinoma. 6. Stable small additional pulmonary nodules which are below resolution limits of PET. 7. Enlarged thyroid gland with diffuse intense uptake which may be due to thyroiditis or Grave s' disease. Electronically authenticated by: CARIE MOTTA Date: 03/09/2024 23:12 Dictated By: Ashlee Motta M.D. Signed By: 03/09/242314 DD/ 11 TD/TT: Interchange Agent: AGUS Reviewed date:04/20/2024 06:49:21 PM Interpretation: Performing Lab: Notes/Report: [facility] , Blood Urea Nitrogen 14.0 7.0-18.0 mg/dL Performing Lab: see note ML - [facility] LB CREATININE Reviewed date:04/20/2024 06:49:21 PM Interpretation: Performing Lab: Notes/Report: The [facility] , Creatinine 0.68 0.55-1.02 mg/dL Estimated GFR ( Nya >60 >=60 Estimated GFR (Non- Cindy >60 >=60 Performing Lab: see note ML - [facility] LB MR head/brain wo/w con Reviewed date:04/20/2024 06:49:21 PM Interpretation: Performing Lab: Notes/Report: Source Facility: [facility]-[address] [place] [address] [place] [address] Magnetic Resonance Report Signed Patient: ISELA DE LA ROSA MR#: [id number] : 1955 Acct:[id number] Age/Sex: 68 / F ADM Date: 03/16/24 Loc: LAB Attending Dr: Kristi Chester M.D. Ordering Physician: Kristi Chester M.D. Date of Service: 03/16/24 Procedure(s): MR head/brain wo/w con Accession Number(s): [id number] cc: Kristi Chester M.D.; Brenda Baker M.D. [place] [address] Patient Name: ISELA DE LA ROSA MRN: [id number] date: 1955 Sex: F Assigned Patient Location: LAB Current Patient Location: LAB Accession/Order Number: [id number] Exam Date: 03/16/2024 12:40 Report Date: 03/16/2024 13:39 At the request of: KRISTI CHESTER Procedure: MR head/brain wo/w con EXAM: MR head/brain wo/w con CLINICAL INDICATION: Lung Cancer COMPARISON: FDG PET/CT 03/06/2024. TECHNIQUE/PROTOCOL: Standard pre and postcontrast protocol brain MRI performed (Sagittal T1 with axial T1, T2, GRE, FLAIR, and diffusion-weighted imaging). CONTRAST: 13 mL of Dotarem. FINDINGS: No restricted diffusion, extra-axial fluid collection, hydrocephalus, midline shift, or other mass effect. Intracranial flow voids are maintained. Subtle patchy hyperintense T2/FLAIR periventricular and subcortical foci are likely on the basis of chronic microvascular angiopathic changes. Mild symmetric global volume loss without lobar predominance. Commensurate ventricular system caliber prominence. No abnormal parenchymal, leptomeningeal, or dural enhancement. Peripherally enhancing marrow replacing osseous lesion involves the C3 vertebral body and measures approximately 1.0 x 1.0 cm. No soft tissue abnormalities. Paranasal sinuses and mastoid air cells are well-aerated. MR/MR head/brain wo/w con IMPRESSION: 1. No acute intracranial process or abnormal enhancement. No evidence of intracranial metastasis. 2. A 1.0 cm peripherally enhancing and marrow replacing osseous lesion in the C3 vertebral body most likely represents osseous metastasis. Electronically authenticated by: LORENZO JONES Date: 03/16/2024 13:39 Dictated By: Lorenzo Jones M.D. Signed By: 03/16/24 1341 DD/ 5989 TD/TT: Interchange Agent: [place] [address] Magnetic Resonance Report Signed Patient: ARNALDO DE LA ROSA MR#: [id number] : 1955 Acct:[id number] Age/Sex: 68 / F ADM Date: 03/16/24 Loc: LAB Attending Dr: Manas Chester M.D. Ordering Physician: Kristi Chester M.D. Date of Service: 03/16/24 Procedure(s): MR head/brain wo/w con Accession Number(s): [id number] cc: Kristi Chester; Brenda Baker M.D. [address] [address] Patient Name: ISELA DE LA ROSA MRN: [id number] date: 1955 Sex: F Assigned Patient Location: LAB Current Patient Loca tion: LAB Accession/Order Numb er: [id number] Exam Date: 03/16/2024 12:40 Report Date: 03/16/2024 13:39 At the request of: KRISTI CHESTER Procedure: MR head/b rain wo/w con EXAM: MR head/brain wo/w con CLINICAL INDICATION: Lung Cancer COMPARISON: FDG PET/ CT 03/06/2024. TECHNIQUE/PROTOCOL: Standard pre and postcontrast protocol brain MRI performed (Sagittal T1 with ax ial T1, T2, GRE, FLAIR, and diffusion-weighted imaging). CONTRAST: 13 mL of Dotarem. FINDINGS: No restricted diffus ion, extra-axial fluid collection, hydrocephalus, midline shift, or other mass effect. Intracranial flow voids are maintained. Subtle patchy hyperintense T2/FLAIR periventricular and subcortical foci are likely on the basis of chronic microvascular angiopathic changes. Mild symmetric global volume loss without lobar predominance. Commensurate ventricular system caliber prominence. No abnor mal parenchymal, leptomeningeal, or dural enhancement. Peripherally enhanci ng marrow replacing osseous lesion involves the C3 vertebral body and measures approximately 1.0 x 1.0 cm. No soft tissue abnormalities. Paran jojo sinuses and mastoid air cells are well-aerated. M R/MR head/brain wo/w con IMPRESSION: 1. No acute intracra nial process or abnormal enhancement. No evidence of intracranial metastasis. 2. A 1.0 cm peripher ally enhancing and marrow replacing osseous lesion in the C3 vertebral body mo st likely represents osseous metastasis. Electronically authenticated by: LORENZO JONES Date: 03/16/2024 13:39 Dictated By: Ashlee Jones M.D. Signed By: 03/16/24 1341 DD/ 1339 TD/TT: Interchange Agent: MAGNESIUM Reviewed date:04/20/2024 06:49:21 PM Interpretation: Performing Lab: Notes/Report: [facility] , Magnesium 2.0 1.8-2.4 mg/dL Performing Lab: see note ML - [facility] LB PROF 14(COMP METB) Reviewed date:04/20/2024 06:49:21 PM Interpretation: Performing Lab: Notes/Report: [facility] , Sodium 136 136-145 mmol/L Potassium 4.2 3.5-5.1 mmol/L Chloride 98 98-107 mmol/L Carbon Dioxide 31.7 21.0-32.0 mmol/L Anion Gap 10.5 Glucose 124 74-106 mg/dL Blood Urea Nitrogen 13.0 7.0-18.0 mg/dL Creatinine 0.72 0.55-1.02 mg/dL Estimated GFR ( Nya >60 >=60 Estimated GFR (Non- Cindy >60 >=60 BUN Creatinine Ratio 18.1 Calcium 9.0 8.5-10.1 mg/dL Bilirubin Total 0.2 0.2-1.0 mg/dL Aspartate Amino Transferase 14 15-37 U/L Alanine Aminotransferase 21 14-59 U/L Alkaline Phosphatase 185 46-116 U/L Total Protein 8.1 6.4-8.2 g/dL Albumin Level 3.7 3.4-5.0 g/dL Globulin 4.4 Albumin Globulin Ratio 0.8 Performing Lab: see note ML - [facility] LB TSH Reviewed date:04/20/2024 06:49:21 PM Interpretation: Performing Lab: Notes/Report: [facility] , Thyroid Stimulating Hormone 3.678 0.358-3.740 uIU/mL Performing Lab: see note ML - [facility] LB CBC AUTO DIFF Reviewed date:04/20/2024 06:49:21 PM Interpretation: Performing Lab: Notes/Report: [facility] , White Blood Count 4.7 4.0-11.0 10 3/uL Red Blood Count 5.00 4.20-5.40 10 6/uL Hemoglobin 14.4 12.0-16.0 g/dL Hematocrit 44.1 36.0-48.0 % Mean Corpuscular Volume 88.2 81.0-99.0 fL Mean Corpuscular Hemoglobin 28.8 26.7-34.0 pg Mean Corpuscular HGB Conc 32.7 29.9-35.2 g/dL Red Cell Distribution Width 13.2 11.0-15.0 % Platelet Count 250 150-450 10 3/uL Mean Platelet Volume 10.1 9.5-13.5 fL Neutrophils Percent Auto 62.5 43.0-75.0 % Lymphocytes Percent Auto 22.7 20.5-60.0 % Monocytes Percent Auto 10.5 1.7-12.0 % Eosinophils Percent Auto 2.4 0.9-7.0 % Basophils Percent Auto 0.6 0.2-2.0 % Immature Granulocytes Pct Auto 1.3 0.0-0.5 % Neutrophils Absolute Auto 2.9 1.4-6.5 10 3/uL Lymphocytes Absolute Auto 1.1 1.2-3.8 10 3/uL Monocytes Absolute Auto 0.5 0.3-0.8 10 3/uL Eosinophils Absolute Auto 0.1 0.0-0.7 10 3/uL Basophils Absolute Auto 0.0 0.0-0.1 10 3/uL Immature Granulocytes Abs Auto 0.06 0.00-0.03 10 3/uL Performing Lab: see note ML - [facility] LB PROF 14(COMP METB) Reviewed date:04/20/2024 06:49:21 PM Interpretation: Performing Lab: Notes/Report: [facility] , Sodium 141 136-145 mmol/L Potassium 3.7 3.5-5.1 mmol/L Chloride 104 98-107 mmol/L Carbon Dioxide 28.6 21.0-32.0 mmol/L Anion Gap 12.1 Glucose 98 74-106 mg/dL Blood Urea Nitrogen 7.0 7.0-18.0 mg/dL Creatinine 0.72 0.55-1.02 mg/dL Estimated GFR ( Nya >60 >=60 Estimated GFR (Non- Cindy >60 >=60 BUN Creatinine Ratio 9.7 Calcium 9.0 8.5-10.1 mg/dL Bilirubin Total 0.3 0.2-1.0 mg/dL Aspartate Amino Transferase 20 15-37 U/L Alanine Aminotransferase 28 14-59 U/L Alkaline Phosphatase 194 46-116 U/L Total Protein 7.7 6.4-8.2 g/dL Albumin Level 3.7 3.4-5.0 g/dL Globulin 4.0 Albumin Globulin Ratio 0.9 Performing Lab: see note - [facility] LB HBsAg Screen Reviewed date:04/20/2024 06:49:21 PM Interpretation: Performing Lab: Notes/Report: [facility] , HBsAg Screen Negative Negative Performing Lab: see note [facility] LB TSH W/ REFLEX FT4 Reviewed date:04/20/2024 06:49:21 PM Interpretation: Performing Lab: Notes/Report: [facility] , TSH W/ REFLEX FT4 2.788 0.358-3.740 uIU/mL Performing Lab: see note [facility] LB Hepatitis B Surf Ab Quant Reviewed date:04/20/2024 06:49:21 PM Interpretation: Performing Lab: Notes/Report: [facility] , Hepatitis B Surf Ab Quant <3.5 Immuni ty>10 mIU/mL Status of Immunity Anti-HBs Level Inconsistent with Immunity 0.0 - 10.0 Consistent with Immunity >10.0 Performing Lab: see note [facility] Hep B Core Ab, Tot Reviewed date:04/20/2024 06:49:21 PM Interpretation: Performing Lab: Notes/Report: [facility] , Hep B Core Ab, Tot Negative Negative Performed at: [address] [id number] [place]: Anibal Hamilton PhD, Phone: [phone] Performing Lab: see note - [facility] LB UA RANDOM W or MICROSCOPIC Reviewed date:04/20/2024 01:06:35 PM Interpretation: Performing Lab: Notes/Report: [facility] , Color Urine LT. YELLOW YELLOW Clarity Urine CLEAR CLEAR Specific [place] Urine 1.010 1.005-1.025 pH Urine 7.0 5.0-9.0 Protein Urine NEGATIVE NEG/TRACE mg/dL Glucose Urine UA NEGATIVE NEGATIVE mg/dL Bilirubin Urine NEGATIVE NEGATIVE Ketones Urine NEGATIVE NEGATIVE mg/dL Blood Urine SMALL NEGATIVE Nitrite Urine NEGATIVE NEGATIVE Urobilinogen Urine 0.2 0.2-1.0 EU/dL Leukocyte Esterase Urine NEGATIVE NEGATIVE WBC Urine NONE SEEN NONE SEEN #/HPF RBC Urine 2-5 0-2 #/HPF Bacteria Urine NONE SEEN NONE SEEN #/HPF Mucus Urine NONE SEEN NONE SEEN Squamous Epithelial Cell Urine RARE NONE/RARE #/LPF Crystals Seen? None Seen None Seen #/HPF Cast Seen? NONE SEEN NONE SEEN #/LPF Performing Lab: see note ML - [facility] LB XR chest 1V Reviewed date:04/20/2024 03:35:00 PM Interpretation: Performing Lab: Notes/Report: Source Facility: [place] [address] [place] [address] XRay Report Signed with Gunner Patient: ISELA DE LA ROSA MR#: [id number] : 1955 Acct:[id number] Age/Sex: 68 / F ADM Date: 04/20/24 Loc: MS 203-[address]: Brenda Baker M.D. Ordering Physician: Karyn Lopez M.D. Date of Service: 04/20/24 Procedure(s): XR chest 1V Accession Number(s): [id number] cc: Brenda Baker M.D.; Karyn Lopez M.D. ADDENDUM [place] [address] Patient Name: ISELA DE LA ROSA MRN: [id number] date: 1955 Sex: F Assigned Patient Location: ER Current Patient Location: MS Accession/Order Number: [id number] Exam Date: 04/20/2024 10:35 Report Date: 04/20/2024 15:08 At the request of: KARYN LOPEZ Procedure: XR chest 1V Begin Addendum #1 Left PICC line with distal tip in superior vena cava near the cavoatrial junction in adequate position. Original Report EXAMINATION: XR chest 1V HISTORY: poss fever COMPARISON: XR chest 02/15/2024 FINDINGS: LUNGS: Grossly stable known right upper lobe mass. No appreciable acute infiltrates. VASCULATURE: No increased pulmonary vasculature. PLEURA: No pneumothorax, effusion, or pleural thickening. CARDIAC: No cardiomegaly or cardiac silhouette abnormality. MEDIASTINUM: No visible mass or adenopathy. BONES: No fracture or visible bone lesion. OTHER: Negative. Addendum Dictated By: Carie Fernandez M.D. Addendum Signed By: <Electronically signed by Carie Fernandez M.D.> 04/20/241516 Addendum Cosigned By: DD/ TD/TT: / ADDENDUM XR/XR chest 1V IMPRESSION: 1. No acute cardiopulmonary process. 2. Grossly stable known right upper lobe mass. Electronically authenticated by: CARIE FERNANDEZ Date: 04/20/2024 15:08 Addendum Dictated By: Carie Fernandez M.D. Addendum Signed By: <Electronically signed by Carie Fernandez M.D.> 04/20/241516 Addendum Cosigned By: DD/ TD/TT: / [place] [address] Patient Name: ISELA DE LA ROSA MRN: [id number] date: 1955 Sex: F Assigned Patient Location: ER Current Patient Location: ER Accession/Order Number: [id number] Exam Date: 04/20/2024 10:35 Report Date: 04/20/2024 10:57 At the request of: KARYN LOPEZ Procedure: XR chest 1V EXAMINATION: XR chest 1V HISTORY: poss fever COMPARISON: XR chest 02/15/2024 FINDINGS: LUNGS: Grossly stable known right upper lobe mass. No appreciable acute infiltrates. VASCULATURE: No increased pulmonary vasculature. PLEURA: No pneumothorax, effusion, or pleural thickening. CARDIAC: No cardiomegaly or cardiac silhouette abnormality. MEDIASTINUM: No visible mass or adenopathy. BONES: No fracture or visible bone lesion. OTHER: Negative. XR/XR chest 1V IMPRESSION: 1. No acute cardiopulmonary process. 2. Grossly stable known right upper lobe mass. Electronically authenticated by: CARIE FERNANDEZ Date: 04/20/2024 10:57 Dictated By: Carie Fernandez M.D. Signed By: 04/20/24 1059 DD/ 105 TD/TT: Interchange Agent: [place] [address] XRay Report Signed with Addenda Patient: ARNALDO DE LA ROSA MR#: [id number] : 1955 Acct:[id number] Age/Sex: 68 / F ADM Date: 04/20/24 Loc: MS 203-[address]: Preeti Baker M.D. Ordering Physician: Karyn Lopez M.D. Date of Service: 04/20/24 Procedure(s): XR chest 1V Accession Number(s): [id number] cc: Brenda Baker M.D. ; Karyn Lopez M.D. ADDENDUM The [address] [address] Patient Name: ISELA DE LA ROSA MRN: [id number] date: 1955 Sex: F Assigned Patient Location: ER Current Patient Loca tion: MS Accession/Order Numb er: [id number] Exam Date: 04/20/2024 10:35 Report Date: 04/20/2024 15:08 At the request of: KARYN LOPEZ Procedure: XR chest 1V Begin Addendum #1 Left PICC line with distal tip in superior vena cava near the cavoatrial junction in adequate position. Original Report EXAMINATION: XR chest 1V HISTORY: poss fever COMPARISON: XR chest 02/15/2024 FINDINGS: LUNGS: Grossly stabl e known right upper lobe mass. No appreciable acute infiltrates. VASCULATURE: No incr eased pulmonary vasculature. PLEURA: No pneumotho rax, effusion, or pleural thickening. CARDIAC: No cardiome alissa or cardiac silhouette abnormality. MEDIASTINUM: No visi ble mass or adenopathy. BONES: No fracture o r visible bone lesion. OTHER: Negative. Addendum Dictated By : Carie Fernandez M.D. Addendum Signed By: <Electronically signed by Carie Fernandez M.D.> 04/20/241516 Addendum Cosigned By: DD/ TD/TT: / ADDENDUM X R/XR chest 1V IMPRESSION: 1. No acute cardiopulmonary process. 2. Grossly stable kn own right upper lobe mass. Electronically authenticated by: CARIE FERNANDEZ Date: 04/20/2024 15:08 Addendum Dictated By : Carie Fernandez M.D. Addendum Signed By: <Electronically signed by Carie Fernandez M.D.> 04/20/241516 Addendum Cosigned By: DD/ TD/TT: / [place] [address] Patient Name: ISELA DE LA ROSA MRN: [id number] date: 1955 Sex: F Assigned Patient Location: ER Current Patient Loca tion: ER Accession/Order Numb er: [id number] Exam Date: 04/20/2024 10:35 Report Date: 04/20/2024 10:57 At the request of: KARYN LOPEZ Procedure: XR chest 1V EXAMINATION: XR chest 1V HISTORY: poss fever COMPARISON: XR chest 02/15/2024 FINDINGS: LUNGS: Grossly stabl e known right upper lobe mass. No appreciable acute infiltrates. VASCULATURE: No incr eased pulmonary vasculature. PLEURA: No pneumotho rax, effusion, or pleural thickening. CARDIAC: No cardiome alissa or cardiac silhouette abnormality. MEDIASTINUM: No visi ble mass or adenopathy. BONES: No fracture o r visible bone lesion. OTHER: Negative. X R/XR chest 1V IMPRESSION: 1. No acute cardiopulmonary process. 2. Grossly stable kn own right upper lobe mass. Electronically authenticated by: CARIE FERNANDEZ Date: 04/20/2024 10:57 Dictated By: Carie Fernandez M.D. Signed By: 04/20/24 1059 DD/ 1057 TD/TT: Interchange Agent: CBC AUTO DIFF Reviewed date:04/21/2024 08:08:35 AM Interpretation: Performing Lab: Notes/Report: [facility] , White Blood Count 2.5 4.0-11.0 10 3/uL Red Blood Count 4.08 4.20-5.40 10 6/uL Hemoglobin 11.5 12.0-16.0 g/dL Hematocrit 35.5 36.0-48.0 % Mean Corpuscular Volume 87.0 81.0-99.0 fL Mean Corpuscular Hemoglobin 28.2 26.7-34.0 pg Mean Corpuscular HGB Conc 32.4 29.9-35.2 g/dL Red Cell Distribution Width 12.6 11.0-15.0 % Platelet Count 87 150-450 10 3/uL Mean Platelet Volume 12.9 9.5-13.5 fL Performing Lab: see note ML - [facility] LB PROF 14(COMP METB) Reviewed date:04/21/2024 08:08:35 AM Interpretation: Performing Lab: Notes/Report: [facility] , Sodium 135 136-145 mmol/L Potassium 3.5 3.5-5.1 mmol/L Chloride 101 98-107 mmol/L Carbon Dioxide 29.0 21.0-32.0 mmol/L Anion Gap 8.5 Glucose 166 74-106 mg/dL Blood Urea Nitrogen 7.0 7.0-18.0 mg/dL Creatinine 0.67 0.55-1.02 mg/dL Estimated GFR ( Nya >60 >=60 Estimated GFR (Non- Cindy >60 >=60 BUN Creatinine Ratio 10.4 Calcium 7.7 8.5-10.1 mg/dL Bilirubin Total 0.2 0.2-1.0 mg/dL Aspartate Amino Transferase 19 15-37 U/L Alanine Aminotransferase 25 14-59 U/L Alkaline Phosphatase 158 46-116 U/L Total Protein 6.8 6.4-8.2 g/dL Albumin Level 3.0 3.4-5.0 g/dL Globulin 3.8 Albumin Globulin Ratio 0.8 Performing Lab: see note - [facility] LB Manual Differential Reviewed date:04/21/2024 08:08:35 AM Interpretation: Performing Lab: Notes/Report: [facility] , Segmented Neutrophils % Manual 95.0 43.0-75.0 Lymphocytes Percent Manual 3.0 20.5-60.0 % Monocytes Percent Manual 0.0 1.7-12.0 % Eosinophils Percent Manual 0.0 0.9-7.0 % Basophils Percent Manual 0.0 0.2-2.0 % Atypical Lymphocytes % Manual 2.0 Segmented Neut Absolute Manual 2.37 1.4-6.5 10 3/uL Lymphocytes Absolute Manual 0.07 1.20-3.80 10 3/uL Monocytes Absolute Manual 0.00 0.30-0 .80 10 3/uL Eosinophils Absolute Manual 0.00 0.00-0.70 10 3/uL Basophils Abs Manual 0.00 0.00-0.10 1 0 3/uL Atypical Lymphocytes Abs Man 0.05 Performing Lab: see note ML - [facility] LB White Blood Cells Reviewed date:04/29/2024 09:26:46 PM Interpretation: Performing Lab: Notes/Report: [facility] , White Blood Cells See Below For Report White Blood Cells White Blood Cells Moderate White Blood Cells Performing Lab: see note LC - [facility] LB FREE T4 Reviewed date:08/16/2024 03:09:58 PM Interpretation: Performing Lab: Notes/Report: [facility] , Free T4 0.91 0.76-1.46 ng/dL Performing Lab: see note - [facility] LB Manual Differential Reviewed date:08/16/2024 03:09:58 PM Interpretation: Performing Lab: Notes/Report: [facility] , Segmented Neutrophils % Manual 82.0 43.0-75.0 Lymphocytes Percent Manual 4.0 20.5-60.0 % Monocytes Percent Manual 14.0 1.7-12.0 % Eosinophils Percent Manual 0.0 0.9-7.0 % Basophils Percent Manual 0.0 0.2-2.0 % Segmented Neut Absolute Manual 11.72 1.4-6.5 10 3/uL Lymphocytes Absolute Manual 0.57 1.20-3.80 10 3/uL Monocytes Absolute Manual 2.00 0.30-0 .80 10 3/uL Eosinophils Absolute Manual 0.00 0.00-0.70 10 3/uL Basophils Abs Manual 0.00 0.00-0.10 1 0 3/uL Performing Lab: see note - [facility] LB PROF 14(COMP METB) Reviewed date:08/16/2024 03:09:58 PM Interpretation: Performing Lab: Notes/Report: [facility] , Sodium 138 136-145 mmol/L Potassium 3.2 3.5-5.1 mmol/L Chloride 98 98-107 mmol/L Carbon Dioxide 26.9 21.0-32.0 mmol/L Anion Gap 16.3 Glucose 125 74-106 mg/dL Blood Urea Nitrogen 15.0 7.0-18.0 mg/dL Creatinine 1.18 0.55-1.02 mg/dL Estimated GFR ( Nya 55 >=60 mL/min/1.73m 2 Estimated GFR (Non- Cindy 46 >=60 mL/min/1.73m 2 BUN Creatinine Ratio 12.7 Calcium 8.4 8.5-10.1 mg/dL Bilirubin Total 0.5 0.2-1.0 mg/dL Aspartate Amino Transferase 24 15-37 U/L Alanine Aminotransferase 51 14-59 U/L Alkaline Phosphatase 189 46-116 U/L Total Protein 7.7 6.4-8.2 g/dL Albumin Level 3.3 3.4-5.0 g/dL Globulin 4.4 Albumin Globulin Ratio 0.8 Performing Lab: see note - [facility] LB Manual Differential Reviewed date:08/16/2024 03:09:58 PM Interpretation: Performing Lab: Notes/Report: [facility] , Segmented Neutrophils % Manual 85.0 43.0-75.0 Lymphocytes Percent Manual 10.0 20.5-60.0 % Monocytes Percent Manual 5.0 1.7-12.0 % Eosinophils Percent Manual 0.0 0.9-7.0 % Basophils Percent Manual 0.0 0.2-2.0 % Segmented Neut Absolute Manual 7.05 1.4-6.5 10 3/uL Lymphocytes Absolute Manual 0.83 1.20-3.80 10 3/uL Monocytes Absolute Manual 0.41 0.30-0 .80 10 3/uL Eosinophils Absolute Manual 0.00 0.00-0.70 10 3/uL Basophils Abs Manual 0.00 0.00-0.10 1 0 3/uL Dohle Bodies 1+ Performing Lab: see note ML - [facility] LB XR chest 2V Reviewed date:08/16/2024 03:09:58 PM Interpretation: Performing Lab: Notes/Report: Source Facility: [place] [address] XRay Report Signed Patient: ISELA DE LA ROSA MR#: [id number] : 1955 Acct:[id number] Age/Sex: 69 / F ADM Date: 06/09/24 Loc: LAB Attending Dr: Kristi Chester M.D. Ordering Physician: Kristi Chester M.D. Date of Service: 06/09/24 Procedure(s): XR chest 2V Accession Number(s): [id number] cc: Kristi Chester M.D.; Brenda Baker M.D. 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 Lungs are otherwise clear. VASCULATURE: No increased pulmonary vasculature. PLEURA: No pneumothorax, effusion, or pleural thickening. CARDIAC: No cardiomegaly or cardiac silhouette abnormality. MEDIASTINUM: No visible mass or adenopathy. BONES: No fracture or visible bone lesion. OTHER: Left PICC line with tip in superior vena cava approaching the cavoatrial junction. XR/XR chest 2V IMPRESSION: 1. No acute cardiopulmonary process. 2. Grossly stable right upper lung mass. 3. Stable left PICC line. Electronically authenticated by: CARIE FERNANDEZ Date: 06/10/2024 09:07 Dictated By: Carie Fernandez M.D. Signed By: 06/10/24909 DD/ 6 TD/TT: Interchange Agent: [place] [address] XRay Report Signed Patient: ARNALDO DE LA ROSA MR#: [id number] : 1955 Acct:[id number] Age/Sex: 69 / F ADM Date: 06/09/24 Loc: LAB Attending Dr: Manas Chester M.D. Ordering Physician: Kristi Chester M.D. Date of Service: 06/09/24 Procedure(s): XR chest 2V Accession Number(s): [id number] cc: Kristi Chester; Brenda Baker M.D. The [place] [id number] Patient Name: ISELA DE LA ROSA MRN: [id number] date: 1955 Sex: F Assigned Patient Location: LAB Current Patient Location: Accession/Order Numb er: [id number] Exam Date: 09:18 Report Date: 06/10/2024 09:07 At the request of: KRISTI CHESTER Procedure: XR chest 2V EXAMINATION: XR chest 2V HISTORY: Malignant Neoplasm Of Upper Lobe Right Lung COMPARISON: XR chest 04/20/2024 FINDINGS: LUNGS: Persistent op acity within right upper lobe. Lungs are otherwise clear. VASCULATURE: No incr eased pulmonary vasculature. PLEURA: No pneumotho rax, effusion, or pleural thickening. CARDIAC: No cardiome alissa or cardiac silhouette abnormality. MEDIASTINUM: No visi ble mass or adenopathy. BONES: No fracture o r visible bone lesion. OTHER: Left PICC selina e with tip in superior vena cava approaching the cavoatrial junction. X R/XR chest 2V IMPRESSION: 1. No acute cardiopulmonary process. 2. Grossly stable ri ght upper lung mass. 3. Stable left PICC line. Electronically authenticated by: CARIE FERNANDEZ Date: 06/10/2024 09:07 Dictated By: Carie Fernandez M.D. Signed By: 06/10/24909 DD/ 6 TD/TT: Interchange Agent: MAGNESIUM Reviewed date:08/16/2024 03:09:58 PM Interpretation: Performing Lab: Notes/Report: [facility] , Magnesium 1.7 1.8-2.4 mg/dL Performing Lab: see note ML - [facility] LB PROF 14(COMP METB) Reviewed date:08/16/2024 03:09:58 PM Interpretation: Performing Lab: Notes/Report: [facility] , Sodium 141 136-145 mmol/L Potassium 2.8 3.5-5.1 mmol/L RESULTS BENTON D TO DHEERAJ MENDEZ RN at 0937 Chloride 100 98-107 mmol/L Carbon Dioxide 28.0 21.0-32.0 mmol/L Anion Gap 15.8 Glucose 125 74-106 mg/dL Blood Urea Nitrogen 15.0 7.0-18.0 mg/dL Creatinine 1.31 0.55-1.02 mg/dL Estimated GFR ( Nya 49 >=60 mL/min/1.73m 2 Estimated GFR (Non- Cindy 40 >=60 mL/min/1.73m 2 BUN Creatinine Ratio 11.5 Calcium 8.2 8.5-10.1 mg/dL Bilirubin Total 0.2 0.2-1.0 mg/dL Aspartate Amino Transferase 16 15-37 U/L Alanine Aminotransferase 30 14-59 U/L Alkaline Phosphatase 143 46-116 U/L Total Protein 7.4 6.4-8.2 g/dL Albumin Level 3.3 3.4-5.0 g/dL Globulin 4.1 Albumin Globulin Ratio 0.8 Performing Lab: see note ML - [facility] LB IRON AND TIBC Reviewed date:08/16/2024 03:09:58 PM Interpretation: Performing Lab: Notes/Report: [facility] , Iron 92.0 50.0-170.0 ug/dL Total Iron Binding Capacity 270.0 250.0-450.0 ug/dL Percent Iron Saturation 34.1 Performing Lab: see note ML - [facility] LB CBC AUTO DIFF Reviewed date:08/16/2024 03:09:58 PM Interpretation: Performing Lab: Notes/Report: [facility] , White Blood Count 5.2 4.0-11.0 10 3/uL Red Blood Count 3.04 4.20-5.40 10 6/uL Hemoglobin 9.2 12.0-16.0 g/dL Hematocrit 27.8 36.0-48.0 % Mean Corpuscular Volume 91.4 81.0-99.0 fL Mean Corpuscular Hemoglobin 30.3 26.7-34.0 pg Mean Corpuscular HGB Conc 33.1 29.9-35.2 g/dL Red Cell Distribution Width 16.5 11.0-15.0 % Platelet Count 218 150-450 10 3/uL Mean Platelet Volume 12.5 9.5-13.5 fL Neutrophils Percent Auto 64.0 43.0-75.0 % Lymphocytes Percent Auto 18.3 20.5-60.0 % Monocytes Percent Auto 16.5 1.7-12.0 % Eosinophils Percent Auto 0.4 0.9-7.0 % Basophils Percent Auto 0.6 0.2-2.0 % Immature Granulocytes Pct Auto 0.2 0.0-0.5 % Neutrophils Absolute Auto 3.3 1.4-6.5 10 3/uL Lymphocytes Absolute Auto 0.9 1.2-3.8 10 3/uL Monocytes Absolute Auto 0.9 0.3-0.8 10 3/uL Eosinophils Absolute Auto 0.0 0.0-0.7 10 3/uL Basophils Absolute Auto 0.0 0.0-0.1 10 3/uL Immature Granulocytes Abs Auto 0.01 0.00-0.03 10 3/uL Performing Lab: see note ML - [facility] LB MAGNESIUM Reviewed date:08/16/2024 03:09:58 PM Interpretation: Performing Lab: Notes/Report: [facility] , Magnesium 1.4 1.8-2.4 mg/dL Performing Lab: see note ML - [facility] LB CBC AUTO DIFF Reviewed date:08/16/2024 03:09:58 PM Interpretation: Performing Lab: Notes/Report: [facility] , White Blood Count 6.1 4.0-11.0 10 3/uL Red Blood Count 3.18 4.20-5.40 10 6/uL Hemoglobin 9.8 12.0-16.0 g/dL Hematocrit 29.7 36.0-48.0 % Mean Corpuscular Volume 93.4 81.0-99.0 fL Mean Corpuscular Hemoglobin 30.8 26.7-34.0 pg Mean Corpuscular HGB Conc 33.0 29.9-35.2 g/dL Red Cell Distribution Width 16.6 11.0-15.0 % Platelet Count 121 150-450 10 3/uL Mean Platelet Volume 13.3 9.5-13.5 fL Neutrophils Percent Auto 66.1 43.0-75.0 % Lymphocytes Percent Auto 19.9 20.5-60.0 % Monocytes Percent Auto 12.5 1.7-12.0 % Eosinophils Percent Auto 0.5 0.9-7.0 % Basophils Percent Auto 0.3 0.2-2.0 % Immature Granulocytes Pct Auto 0.7 0.0-0.5 % Neutrophils Absolute Auto 4.0 1.4-6.5 10 3/uL Lymphocytes Absolute Auto 1.2 1.2-3.8 10 3/uL Monocytes Absolute Auto 0.8 0.3-0.8 10 3/uL Eosinophils Absolute Auto 0.0 0.0-0.7 10 3/uL Basophils Absolute Auto 0.0 0.0-0.1 10 3/uL Immature Granulocytes Abs Auto 0.04 0.00-0.03 10 3/uL Performing Lab: see note ML - [facility] LB TSH Reviewed date:08/16/2024 03:09:58 PM Interpretation: Performing Lab: Notes/Report: [facility] , Thyroid Stimulating Hormone 8.667 0.358-3.740 uIU/mL Performing Lab: see note ML - [facility] LB CBC AUTO DIFF Reviewed date:08/16/2024 03:09:57 PM Interpretation: Performing Lab: Notes/Report: [facility] , White Blood Count 9.2 4.0-11.0 10 3/uL Red Blood Count 2.70 4.20-5.40 10 6/uL Hemoglobin 8.4 12.0-16.0 g/dL Hematocrit 25.5 36.0-48.0 % Mean Corpuscular Volume 94.4 81.0-99.0 fL Mean Corpuscular Hemoglobin 31.1 26.7-34.0 pg Mean Corpuscular HGB Conc 32.9 29.9-35.2 g/dL Red Cell Distribution Width 15.6 11.0-15.0 % Platelet Count 47 150-450 10 3/uL PLATELET COUNT MAYBE FALSELY DECREASED DUE TO A FEW CLUMPED PLATELETS SEEN Mean Platelet Volume 13.3 9.5-13.5 fL Performing Lab: see note ML - [facility] FREE T4 Reviewed date:08/16/2024 03:09:57 PM Interpretation: Performing Lab: Notes/Report: [facility] Free T4 0.84 0.76-1.46 ng/dL Performing Lab: see note ML - [facility] LB MAGNESIUM Reviewed date:08/16/2024 03:09:57 PM Interpretation: Performing Lab: Notes/Report: [facility] , Magnesium 1.1 1.8-2.4 mg/dL Performing Lab: see note ML - [facility] LB PROF 14(COMP METB) Reviewed date:08/16/2024 03:09:57 PM Interpretation: Performing Lab: Notes/Report: [facility] , Sodium 145 136-145 mmol/L Potassium 3.1 3.5-5.1 mmol/L Chloride 105 98-107 mmol/L Carbon Dioxide 25.9 21.0-32.0 mmol/L Anion Gap 17.2 Glucose 105 74-106 mg/dL Blood Urea Nitrogen 14.0 7.0-18.0 mg/dL Creatinine 1.60 0.55-1.02 mg/dL Estimated GFR ( Nya 39 >=60 mL/min/1.73m 2 Estimated GFR (Non- Cindy 32 >=60 mL/min/1.73m 2 BUN Creatinine Ratio 8.8 Calcium 7.4 8.5-10.1 mg/dL Bilirubin Total 0.1 0.2-1.0 mg/dL Aspartate Amino Transferase 16 15-37 U/L Alanine Aminotransferase 24 14-59 U/L Alkaline Phosphatase 123 46-116 U/L Total Protein 7.3 6.4-8.2 g/dL Albumin Level 3.4 3.4-5.0 g/dL Globulin 3.9 Albumin Globulin Ratio 0.9 Performing Lab: see note ML - [facility] LB TSH Reviewed date:08/16/2024 03:09:57 PM Interpretation: Performing Lab: Notes/Report: [facility] , Thyroid Stimulating Hormone 10.815 0.358-3.740 uIU/mL Performing Lab: see note ML - [facility] LB Manual Differential Reviewed date:08/16/2024 03:09:57 PM Interpretation: Performing Lab: Notes/Report: [facility] , Segmented Neutrophils % Manual 59.0 43.0-75.0 Band Neutrophils % 2.0 0-5 % Lymphocytes Percent Manual 32.0 20.5-60.0 % Monocytes Percent Manual 7.0 1.7-12.0 % Eosinophils Percent Manual 0.0 0.9-7.0 % Basophils Percent Manual 0.0 0.2-2.0 % Segmented Neut Absolute Manual 5.42 1.4-6.5 10 3/uL Band Neutrophils Absolute 0.2 0.0-0.3 10 3/uL Lymphocytes Absolute Manual 2.94 1.20-3.80 10 3/uL Monocytes Absolute Manual 0.64 0.30-0 .80 10 3/uL Eosinophils Absolute Manual 0.00 0.00-0.70 10 3/uL Basophils Abs Manual 0.00 0.00-0.10 1 0 3/uL Poikilocytosis 1+ Tear Drop Cells 1+ Performing Lab: see note ML - [facility] LB CBC AUTO DIFF Reviewed date:08/16/2024 03:09:57 PM Interpretation: Performing Lab: Notes/Report: [facility] , White Blood Count 8.9 4.0-11.0 10 3/uL Red Blood Count 2.66 4.20-5.40 10 6/uL Hemoglobin 8.3 12.0-16.0 g/dL Hematocrit 25.6 36.0-48.0 % Mean Corpuscular Volume 96.2 81.0-99.0 fL Mean Corpuscular Hemoglobin 31.2 26.7-34.0 pg Mean Corpuscular HGB Conc 32.4 29.9-35.2 g/dL Red Cell Distribution Width 16.7 11.0-15.0 % Platelet Count 86 150-450 10 3/uL Mean Platelet Volume 13.3 9.5-13.5 fL Performing Lab: see note ML - [facility] LB CRP Reviewed date:08/16/2024 03:09:57 PM Interpretation: Performing Lab: Notes/Report: [facility] , C Reactive Protein <0.50 <=0.50 mg/dL Performing Lab: see note ML - [facility] LB IRON AND TIBC Reviewed date:08/16/2024 03:09:57 PM Interpretation: Performing Lab: Notes/Report: [facility] , Iron 99.0 50.0-170.0 ug/dL Total Iron Binding Capacity 274.0 250.0-450.0 ug/dL Percent Iron Saturation 36.1 Performing Lab: see note ML - [facility] LB MAGNESIUM Reviewed date:08/16/2024 03:09:57 PM Interpretation: Performing Lab: Notes/Report: [facility] , Magnesium 1.4 1.8-2.4 mg/dL Performing Lab: see note ML - [facility] LB PROF 14(COMP METB) Reviewed date:08/16/2024 03:09:57 PM Interpretation: Performing Lab: Notes/Report: [facility] , Sodium 142 136-145 mmol/L Potassium 3.6 3.5-5.1 mmol/L Chloride 105 98-107 mmol/L Carbon Dioxide 24.8 21.0-32.0 mmol/L Anion Gap 15.8 Glucose 118 74-106 mg/dL Blood Urea Nitrogen 19.0 7.0-18.0 mg/dL Creatinine 1.74 0.55-1.02 mg/dL Estimated GFR ( Nya 35 >=60 mL/min/1.73m 2 Estimated GFR (Non- Cindy 29 >=60 mL/min/1.73m 2 BUN Creatinine Ratio 10.9 Calcium 8.6 8.5-10.1 mg/dL Bilirubin Total 0.2 0.2-1.0 mg/dL Aspartate Amino Transferase 20 15-37 U/L Alanine Aminotransferase 29 14-59 U/L Alkaline Phosphatase 103 46-116 U/L Total Protein 7.6 6.4-8.2 g/dL Albumin Level 3.6 3.4-5.0 g/dL Globulin 4.0 Albumin Globulin Ratio 0.9 Performing Lab: see note - [facility] Erythrocyte Sedimentation Ra te Reviewed date:08/16/2024 03:09:57 PM Interpretation: Performing Lab: Notes/Report: [facility] , Erythrocyte Sedimentation Rate 70 <=30 mm/hr Performing Lab: see note [facility] Manual Differential Reviewed date:08/16/2024 03:09:57 PM Interpretation: Performing Lab: Notes/Report: [facility] , Segmented Neutrophils % Manual 55.0 43.0-75.0 Lymphocytes Percent Manual 26.0 20.5-60.0 % Monocytes Percent Manual 17.0 1.7-12.0 % Eosinophils Percent Manual 1.0 0.9-7.0 % Basophils Percent Manual 1.0 0.2-2.0 % Segmented Neut Absolute Manual 4.89 1.4-6.5 10 3/uL Lymphocytes Absolute Manual 2.31 1.20-3.80 10 3/uL Monocytes Absolute Manual 1.51 0.30-0 .80 10 3/uL Eosinophils Absolute Manual 0.08 0.00-0.70 10 3/uL Basophils Abs Manual 0.08 0.00-0.10 1 0 3/uL Performing Lab: see note - [facility] TSH W/ REFLEX FT4 Reviewed date:08/16/2024 03:09:57 PM Interpretation: Performing Lab: Notes/Report: [facility] , TSH W/ REFLEX FT4 10.575 0.358-3.740 uIU/mL Performing Lab: see note - [facility] Vitamin B12 Reviewed date:08/16/2024 03:09:57 PM Interpretation: Performing Lab: Notes/Report: [facility] , Vitamin B12 >2000 232-1245 pg/mL Performed at: [facility] [address] [id number] [place]: Anibal Hamilton PhD, Phone: [phone] Performing Lab: see note - [facility] NM bone scan whole body Reviewed date:08/16/2024 03:09:57 PM Interpretation: Performing Lab: Notes/Report: Source Facility: [place] [address] Nuclear Medicine Report Signed Patient: ISELA DE LA ROSA MR#: [id number] : 1955 Acct:[id number] Age/Sex: 69 / F ADM Date: 08/02/24 Loc: MERLEN[facility] Attending Dr: Kristi Chester M.D. Ordering Physician: Kristi Chester M.D. Date of Service: 08/02/24 Procedure(s): MA bone scan whole body Accession Number(s): [id number] cc: Kristi Chester M.D.; DR. SARA RUEDA; Brenda Baker M.D. [place] [address] Patient Name: ISELA DE LA ROSA MRN: [id number] date: 1955 Sex: F Assigned Patient Location: MA Current Patient Location: MA Accession/Order Number: [id number] Exam Date: 08/02/2024 09:10 Report Date: 08/02/2024 13:04 At the request of: KRISTI CHESTER Procedure: MA bone scan whole body EXAMINATION: MA bone scan whole body HISTORY: MALIGNANT NEOPLASM OF UPPER LOBE, RIGHT BRONCHUS OR LUNG COMPARISON: 07/10/2024 TECHNIQUE: After obtaining the patient's consent, 25.6 mCi Technetium 99m MDP was injected intravenously. Images were obtained approximately two hours later. FINDINGS: Region: Whole-body ABNORMALITIES: Increased activity identified in the right acromial process, left upper thoracic spine, L1 and L4 vertebral bodies, left mid sacrum, left sacroiliac joint and ileum, bilateral femoral diaphyses, right greater than left OTHER: Negative. NM/MA bone scan whole body IMPRESSION: Multiple areas of abnormal uptake likely representing metastatic disease to the bones Electronically authenticated by: JOAQUIM CHAN Date: 08/02/2024 13:04 Dictated By: Joqauim Chan M.D. Signed By: 08/02/24 1307 DD/ 03 TD/TT: Interchange Agent: [place] [address] Nuclear Medicine Report Signed Patient: ARNALDO DE LA ROSA MR#: [id number] : 1955 Acct:[id number] Age/Sex: 69 / F ADM Date: 08/02/24 Loc: [facility]LENE Attending Dr: Manas Chester M.D. Ordering Physician: Kristi Chester M.D. Date of Service: 08/02/24 Procedure(s): MA bon e scan whole body Accession Number(s): [id number] cc: Kristi Chester; DR. SARA RUEDA; Brenda Baker M.D. [place] [address] Patient Name: ISELA DE LA ROSA MRN: [id number] date: 1955 Sex: F Assigned Patient Location: MA Current Patient Loca tion: MA Accession/Order Numb er: [id number] Exam Date: 08/02/2024 09:10 Report Date: 08/02/2024 13:04 At the request of: KRISTI CHESTER Procedure: NM bone s can whole body EXAMINATION: MA bone scan whole body HISTORY: MALIGNANT NEOPLASM OF UPPER LOBE, RIGHT BRONCHUS OR LUNG COMPARISON: 07/10/2024 TECHNIQUE: After obtaining the patient's consent, 25.6 mCi Technetium 99m MDP was injected intravenously. Images were obtained approximately two hours later. FINDINGS: Region: Whole-body ABNORMALITIES: Incre ased activity identified in the right acromial process, left upper thoracic spine, L1 and L4 vertebral bodies, left mid sacrum, left sacroiliac joint and ileum, bilateral femoral diaphyses, right greater than left OTHER: Negative. N /NM bone scan whole body IMPRESSION: Multiple areas of abnormal uptake likely representing metastatic disease to the bones Electronically authenticated by: JOAQUIM CHAN Date: 08/02/2024 13:04 Dictated By: Eduard Chan M.D. Signed By: 08/02/24 1307 DD/ 03 TD/TT: Interchange Agent: US renal BI Reviewed date:08/16/2024 03:09:57 PM Interpretation: Performing Lab: Notes/Report: Source Facility: [place] [address] Ultrasound Report Signed Patient: ISELA DE LA ROSA MR#: [id number] : 1955 Acct:[id number] Age/Sex: 69 / F ADM Date: 08/03/24 Loc: US Attending Dr: Kristi Chester M.D. Ordering Physician: Kristi Chester M.D. Date of Service: 08/03/24 Procedure(s): US renal BI Accession Number(s): [id number] cc: Kristi Chester M.D.; Brenda Baker M.D. [place] [address] Patient Name: ISELA DE LA ROSA MRN: [id number] date: 1955 Sex: F Assigned Patient Location: Current Patient Location: US Accession/Order Number: [id number] Exam Date: 08/03/2024 07:43 Report Date: 08/03/2024 11:11 At the request of: KRISTI CHESTER Procedure: US renal BI PROCEDURE: US renal BI, 08/03/2024 7:43 AM EST CLINICAL INDICATIONS: Malignant neoplasm of the right lung, chemotherapy, nausea. COMPARISON: None TECHNIQUE: Renal and bladder sonogram, monte scale, color evaluation. FINDINGS: Right kidney: 9.9 x 5.5 x 5.9 cm, cortex 1.0 cm Left kidney: 10.2 x 4.3 x 4.4 cm, cortex 0.9 cm Prevoid bladder volume: 204 mL. Postvoid urinary bladder volume: 32 mL. Urinary bladder is unremarkable. Ureteral jets intact bilaterally. Focal abnormality is not evident. Increased echogenicity of renal parenchyma is seen. Renal cortical thinning is noted. Focal renal abnormality is not demonstrated. Nephrolithiasis is not seen. No hydronephrosis or obstructive uropathy. US/US renal BI IMPRESSION: 1. Medical renal disease, no hydronephrosis or obstructive uropathy. 2. No nephrolithiasis or focal abnormality. 3. Unremarkable urinary bladder. 4. 204 mL prevoid volume, 32 mL postvoid urinary bladder residual. Electronically authenticated by: SHANE MADDOX Date: 08/03/2024 11:11 Dictated By: Shane Maddox M.D. Signed By: 08/03/24 1114 DD/ 1111 TD/TT: Interchange Agent: [place] [address] Ultrasound Report Signed Patient: ARNALDO DE LA ROSA MR#: [id number] : 1955 Acct:[id number] Age/Sex: 69 / F ADM Date: 08/03/24 Loc: US Attending Dr: Manas Chester M.D. Ordering Physician: Kristi Chester M.D. Date of Service: 08/03/24 Procedure(s): US renal BI Accession Number(s): [id number] cc: Kristi Chester; Brenda Baker M.D. [place] [id number] Patient Name: ISELA DE LA ROSA MRN: [id number] date: 1955 Sex: F Assigned Patient Location: US Current Patient Loca tion: US Accession/Order Numb er: [id number] Exam Date: 08/03/2024 07:43 Report Date: 08/03/2024 11:11 At the request of: KRISTI CHESTER Procedure: US renal BI PROCEDURE: US renal BI, 08/03/2024 7:43 AM EST CLINICAL INDICATIONS : Malignant neoplasm of the right lung, chemotherapy, nausea. COMPARISON: None TECHNIQUE: Renal and bladder sonogram, monte scale, color evaluation. FINDINGS: Right kidney: 9.9 x 5.5 x 5.9 cm, cortex 1.0 cm Left kidney: 10.2 x 4.3 x 4.4 cm, cortex 0.9 cm Prevoid bladder volu me: 204 mL. Postvoid urinary edda dder volume: 32 mL. Urinary bladder is unremarkable. Ureteral jets intact bilaterally. Focal abnormality is not evident. Increased echogenici ty of renal parenchyma is seen. Renal cortical thinning is noted. Focal renal abnormality is not demonstrated. Nephrolithiasis is n ot seen. No hydronephrosis or obstructive uropathy. U S/US renal BI IMPRESSION: 1. Medical renal dis ease, no hydronephrosis or obstructive uropathy. 2. No nephrolithiasi s or focal abnormality. 3. Unremarkable urin sascha bladder. 4. 204 mL prevoid vo lume, 32 mL postvoid urinary bladder residual. Electronically authenticated by: SHANE MADDOX Date: 08/03/2024 11:11 Dictated By: Shane Maddox M.D. Signed By: 08/03/24 1114 DD/ 1111 TD/TT: Interchange Agent: CBC AUTO DIFF Reviewed date:08/16/2024 03:09:57 PM Interpretation: Performing Lab: Notes/Report: [facility] , White Blood Count 8.1 4.0-11.0 10 3/uL Red Blood Count 2.70 4.20-5.40 10 6/uL Hemoglobin 8.7 12.0-16.0 g/dL Hematocrit 27.4 36.0-48.0 % Mean Corpuscular Volume 101.5 81.0-99.0 fL Mean Corpuscular Hemoglobin 32.2 26.7-34.0 pg Mean Corpuscular HGB Conc 31.8 29.9-35.2 g/dL Red Cell Distribution Width 20.0 11.0-15.0 % Platelet Count 228 150-450 10 3/uL Mean Platelet Volume 11.1 9.5-13.5 fL Neutrophils Percent Auto 76.2 43.0-75.0 % Lymphocytes Percent Auto 9.1 20.5-60.0 % Monocytes Percent Auto 13.6 1.7-12.0 % Eosinophils Percent Auto 0.0 0.9-7.0 % Basophils Percent Auto 0.2 0.2-2.0 % Immature Granulocytes Pct Auto 0.9 0.0-0.5 % Neutrophils Absolute Auto 6.2 1.4-6.5 10 3/uL Lymphocytes Absolute Auto 0.7 1.2-3.8 10 3/uL Monocytes Absolute Auto 1.1 0.3-0.8 10 3/uL Eosinophils Absolute Auto 0.0 0.0-0.7 10 3/uL Basophils Absolute Auto 0.0 0.0-0.1 10 3/uL Immature Granulocytes Abs Auto 0.07 0.00-0.03 10 3/uL Performing Lab: see note ML - [facility] LB CRP Reviewed date:08/16/2024 03:09:57 PM Interpretation: Performing Lab: Notes/Report: [facility] , C Reactive Protein <0.50 <=0.50 mg/dL Performing Lab: see note ML - [facility] LB MAGNESIUM Reviewed date:08/16/2024 03:09:57 PM Interpretation: Performing Lab: Notes/Report: [facility] , Magnesium 1.5 1.8-2.4 mg/dL Performing Lab: see note - [facility] PROF 14(COMP METB) Reviewed date:08/16/2024 03:09:57 PM Interpretation: Performing Lab: Notes/Report: [facility] , Sodium 139 136-145 mmol/L Potassium 3.7 3.5-5.1 mmol/L Chloride 103 98-107 mmol/L Carbon Dioxide 26.6 21.0-32.0 mmol/L Anion Gap 13.1 Glucose 148 74-106 mg/dL Blood Urea Nitrogen 13.0 7.0-18.0 mg/dL Creatinine 1.84 0.55-1.02 mg/dL Estimated GFR ( Nya 33 >=60 mL/min/1.73m 2 Estimated GFR (Non- Cindy 27 >=60 mL/min/1.73m 2 BUN Creatinine Ratio 7.1 Calcium 8.3 8.5-10.1 mg/dL Bilirubin Total 0.2 0.2-1.0 mg/dL Aspartate Amino Transferase 13 15-37 U/L Alanine Aminotransferase 21 14-59 U/L Alkaline Phosphatase 93 46-116 U/L Total Protein 7.1 6.4-8.2 g/dL Albumin Level 3.4 3.4-5.0 g/dL Globulin 3.7 Albumin Globulin Ratio 0.9 Performing Lab: see note ML - [facility] LB TSH Reviewed date:08/16/2024 03:09:57 PM Interpretation: Performing Lab: Notes/Report: [facility] , Thyroid Stimulating Hormone 5.978 0.358-3.740 uIU/mL Performing Lab: see note - [facility] LB Erythrocyte Sedimentation Ra te Reviewed date:08/16/2024 03:09:57 PM Interpretation: Performing Lab: Notes/Report: [facility] , Erythrocyte Sedimentation Rate 33 <=30 mm/hr Performing Lab: see note - [facility] LB HBsAg Screen Reviewed date:08/16/2024 03:09:57 PM Interpretation: Performing Lab: Notes/Report: [facility] , HBsAg Screen Negative Negative Performing Lab: see note - [facility] LB Hepatitis B Surf Ab Quant Reviewed date:08/16/2024 03:09:57 PM Interpretation: Performing Lab: Notes/Report: [facility] , Hepatitis B Surf Ab Quant <3.5 Immuni ty>10 mIU/mL Status of Immunity Anti-HBs Level Inconsistent with Immunity 0.0 - 10.0 Consistent with Immunity >10.0 Performing Lab: see note - [facility] LB Hep B Core Ab, Tot Reviewed date:08/16/2024 03:09:57 PM Interpretation: Performing Lab: Notes/Report: [facility] , Hep B Core Ab, Tot Negative Negative Performed at: [address] [id number] [place]: Anibal Hamilton PhD, Phone: [phone] Performing Lab: see note - [facility] LB CBC AUTO DIFF Reviewed date:08/16/2024 03:09:57 PM Interpretation: Performing Lab: Notes/Report: [facility] , White Blood Count 7.2 4.0-11.0 10 3/uL Red Blood Count 3.27 4.20-5.40 10 6/uL Hemoglobin 10.5 12.0-16.0 g/dL Hematocrit 33.3 36.0-48.0 % Mean Corpuscular Volume 101.8 81.0-99.0 fL Mean Corpuscular Hemoglobin 32.1 26.7-34.0 pg Mean Corpuscular HGB Conc 31.5 29.9-35.2 g/dL Red Cell Distribution Width 18.5 11.0-15.0 % Platelet Count 150 150-450 10 3/uL Mean Platelet Volume 12.8 9.5-13.5 fL Neutrophils Percent Auto 69.5 43.0-75.0 % Lymphocytes Percent Auto 13.3 20.5-60.0 % Monocytes Percent Auto 16.1 1.7-12.0 % Eosinophils Percent Auto 0.4 0.9-7.0 % Basophils Percent Auto 0.4 0.2-2.0 % Immature Granulocytes Pct Auto 0.3 0.0-0.5 % Neutrophils Absolute Auto 5.0 1.4-6.5 10 3/uL Lymphocytes Absolute Auto 1.0 1.2-3.8 10 3/uL Monocytes Absolute Auto 1.2 0.3-0.8 10 3/uL Eosinophils Absolute Auto 0.0 0.0-0.7 10 3/uL Basophils Absolute Auto 0.0 0.0-0.1 10 3/uL Immature Granulocytes Abs Auto 0.02 0.00-0.03 10 3/uL Performing Lab: see note ML - [facility] LB FREE T4 Reviewed date:08/16/2024 03:09:57 PM Interpretation: Performing Lab: Notes/Report: [facility] , Free T4 1.12 0.76-1.46 ng/dL Performing Lab: see note ML - [facility] LB MAGNESIUM Reviewed date:08/16/2024 03:09:57 PM Interpretation: Performing Lab: Notes/Report: [facility] , Magnesium 1.7 1.8-2.4 mg/dL Performing Lab: see note ML - [facility] LB PROF 14(COMP METB) Reviewed date:08/16/2024 03:09:57 PM Interpretation: Performing Lab: Notes/Report: [facility] , Sodium 137 136-145 mmol/L Potassium 4.4 3.5-5.1 mmol/L Chloride 104 98-107 mmol/L Carbon Dioxide 25.1 21.0-32.0 mmol/L Anion Gap 12.3 Glucose 124 74-106 mg/dL Blood Urea Nitrogen 16.0 7.0-18.0 mg/dL Creatinine 1.58 0.55-1.02 mg/dL Estimated GFR ( Nya 39 >=60 mL/min/1.73m 2 Estimated GFR (Non- Cindy 33 >=60 mL/min/1.73m 2 BUN Creatinine Ratio 10.1 Calcium 8.6 8.5-10.1 mg/dL Bilirubin Total 0.2 0.2-1.0 mg/dL Aspartate Amino Transferase 16 15-37 U/L Alanine Aminotransferase 19 14-59 U/L Alkaline Phosphatase 91 46-116 U/L Total Protein 7.5 6.4-8.2 g/dL Albumin Level 3.5 3.4-5.0 g/dL Globulin 4.0 Albumin Globulin Ratio 0.9 Performing Lab: see note ML - [facility] LB TSH W/ REFLEX FT4 Reviewed date:08/16/2024 03:09:57 PM Interpretation: Performing Lab: Notes/Report: [facility] , TSH W/ REFLEX FT4 3.913 0.358-3.740 uIU/mL Performing Lab: see note - [facility] LB XR chest 1V Reviewed date:08/16/2024 03:09:57 PM Interpretation: Performing Lab: Notes/Report: Source Facility: [place] [address] [place] [address] XRay Report Signed Patient: ISELA DE LA ROSA MR#: [id number] : 1955 Acct:[id number] Age/Sex: 69 / F ADM Date: 08/16/24 Loc: SURGOUT Attending Dr: Judith Martines M.D. Ordering Physician: Mitzi Irwin II, M.D. Date of Service: 08/16/24 Procedure(s): XR chest 1V Accession Number(s): [id number] cc: Brenda Baker M.D.; Mitzi Irwin II, M.D. [place] [address] Patient Name: ISELA DE LA ROSA MRN: [id number] date: 1955 Sex: F [facility]: [facility] Accession/Order Number: [id number] Exam Date: 08/16/2024 10:02 Report Date: 08/16/2024 10:18 At the request of: MITZI IRWIN Procedure: XR chest 1V EXAM: XR chest 1V HISTORY: verify pic placement COMPARISON: Chest radiograph dated 04/20/2024 and PET/CT examination dated 07/10/2024. TECHNIQUE: AP erect portable chest radiograph performed. FINDINGS: Left PICC with the distal tip extending into the superior vena cava. The heart size is within normal limits. Redemonstration of a right upper lobe mass and volume loss. There is no pleural effusion or pulmonary vascular congestion. There is no pneumothorax or acute osseous abnormality. XR/XR chest 1V IMPRESSION: Left PICC with the distal tip extending into the superior vena cava. Redemonstration of a right upper lobe mass and volume loss. Electronically authenticated by: CELINA ROY Date: 08/16/2024 10:18 Dictated By: Celina Roy M.D. Signed By: 08/16/24 1021 DD/ 1018 TD/TT: Interchange Agent: [place] [address] XRay Report Signed Patient: ARNALDO DE LA ROSA MR#: [id number] : 1955 Acct:[id number] Age/Sex: 69 / F ADM Date: 08/16/24 Loc: SURGNATY Attending Dr: Jennifer Martines M.D. Ordering Physician: Mitzi Irwin II, M.D. Date of Service: 08/16/24 Procedure(s): XR chest 1V Accession Number(s): [id number] cc: Brenda Baker M.D. ; Mitzi Irwin II, M.D. [place] [address] Patient Name: ISELA DE LA ROSA MRN: [id number] date: 1955 Sex: F [facility] Current Patient Loca tion: SURGOUT Accession/Order Numb er: [id number] Exam Date: 08/16/2024 10:02 Report Date: 08/16/2024 10:18 At the request of: MITZI IRWIN Procedure: XR chest 1V EXAM: XR chest 1V HISTORY: verify pic placement COMPARISON: Chest radiograph dated 04/20/2024 and PET/CT examination dated 07/10/2024. TECHNIQUE: AP erect portable chest radiograph performed. FINDINGS: Left PICC with the d istal tip extending into the superior vena cava. The heart size is wi thin normal limits. Redemonstration of a right upper lobe mass and volume loss. There is no pleural effusion or pulmonar y vascular congestion. There is no pneumoth orax or acute osseous abnormality. X R/XR chest 1V IMPRESSION: Left PICC with the d istal tip extending into the superior vena cava. Redemonstration of a right upper lobe mass and volume loss. Electronically authenticated by: CELINA ROY Date: 08/16/2024 10:18 Dictated By: Cristopher Roy M.D. Signed By: 08/16/24 1021 DD/ 1018 TD/TT: Interchange Agent: FL fluoroscopy <1hr NON-READ Reviewed date:08/28/2024 08:42:29 PM Interpretation: Performing Lab: Notes/Report: Source Facility: [place] [address] Fluoroscopy Report Signed Patient: ISELA DE LA ROSA MR#: [id number] : 1955 Acct:[id number] Age/Sex: 69 / F ADM Date: 08/16/24 Loc: SURGOUT Attending Dr: Judith Martines M.D. Ordering Physician: Judith Martines M.D. Date of Service: 08/16/24 Procedure(s): FL fluoroscopy <1hr NON-READ Accession Number(s): [id number] cc: Brenda Baker M.D.; Judith Martines M.D. [place] [address] Patient Name: ISELA DE LA ROSA MRN: [id number] date: 1955 Sex: F Assigned Patient Location: [facility] Current Patient Location: [facility] Accession/Order Number: [id number] Exam Date: 08/16/2024 11:56 Report Date: 08/28/2024 12:09 At the request of: JUDITH MARTINES Procedure: FL fluoroscopy <1hr NON-READ EXAM: FL fluoroscopy <1hr NON-READ HISTORY: TECHNIQUE: FINDINGS: Please see Operative Report. Electronically authenticated by: RADIOLOGIST NO Date: 08/28/2024 12:09 Dictated By: DeniseRadiologist Signed By: 08/28/241211 DD/ 08 TD/TT: Interchange Agent: [place] [address] Fluoroscopy Report Signed Patient: ARNALDO DE LA ROSA MR#: [id number] : 1955 Acct:[id number] Age/Sex: 69 / F ADM Date: 08/16/24 Loc: SURGOUT Attending Dr: Jennifer Martines M.D. Ordering Physician: Judith Martines M.D. Date of Service: 08/16/24 Procedure(s): FL fluoroscopy <1hr NON-READ Accession Number(s): [id number] cc: Brenda Baker M.D. ; Judith Martines M.D. The [place] [id number] Patient Name: IESLA DE LA ROSA MRN: [id number] date: 1955 Sex: F [facility]igned [facility] Current Patient Loca tion[facility] Accession/Order Numb er: [id number] Exam Date: 08/16/2024 11:56 Report Date: 08/28/2024 12:09 At the request of: JUDITH MARTINES Procedure: FL fluoro scopy <1hr NON-READ EXAM: FL fluoroscopy <1hr NON-READ HISTORY: TECHNIQUE: FINDINGS: Please see Operative Report. Electronically authenticated by: RADIOLOGIST NO Date: 08/28/2024 12:09 Dictated By: DeniseRadiologist Signed By: 08/28/241211 DD/ 08 TD/TT: Interchange Agent: CBC AUTO DIFF (Not yet revie wed by provider) Interpretation: Performing Lab: Notes/Report: [facility] , White Blood Count 4.9 4.0-11.0 10 3/uL Red Blood Count 3.33 4.20-5.40 10 6/uL Hemoglobin 10.5 12.0-16.0 g/dL Hematocrit 31.8 36.0-48.0 % Mean Corpuscular Volume 95.5 81.0-99.0 fL Mean Corpuscular Hemoglobin 31.5 26.7-34.0 pg Mean Corpuscular HGB Conc 33.0 29.9-35.2 g/dL Red Cell Distribution Width 13.1 11.0-15.0 % Platelet Count 95 150-450 10 3/uL A FEW PLATELET CLUMPS SEEN--THIS MAY FALSELY DECREASE THE PLATELET COUNT. PLEASE NOTIFY LAB IF REDRAW REQUESTED. Mean Platelet Volume 13.2 9.5-13.5 fL Neutrophils Percent Auto 81.3 43.0-75.0 % Lymphocytes Percent Auto 12.8 20.5-60.0 % Monocytes Percent Auto 4.1 1.7-12.0 % Eosinophils Percent Auto 1.0 0.9-7.0 % Basophils Percent Auto 0.2 0.2-2.0 % Immature Granulocytes Pct Auto 0.6 0.0-0.5 % Neutrophils Absolute Auto 3.9 1.4-6.5 10 3/uL Lymphocytes Absolute Auto 0.6 1.2-3.8 10 3/uL Monocytes Absolute Auto 0.2 0.3-0.8 10 3/uL Eosinophils Absolute Auto 0.1 0.0-0.7 10 3/uL Basophils Absolute Auto 0.0 0.0-0.1 10 3/uL Immature Granulocytes Abs Auto 0.03 0.00-0.03 10 3/uL Performing Lab: see note ML - [facility] LB PROF CHEM 8 (BAS METB) (Not yet reviewed by provider) Interpretation: Performing Lab: Notes/Report: [facility] , Sodium 136 136-145 mmol/L Potassium 3.5 3.5-5.1 mmol/L Chloride 99 98-107 mmol/L Carbon Dioxide 23.8 21.0-32.0 mmol/L Anion Gap 16.7 Glucose 124 74-106 mg/dL Blood Urea Nitrogen 16.0 7.0-18.0 mg/dL Creatinine 1.60 0.55-1.02 mg/dL Estimated GFR ( Nya 39 >=60 mL/min/1.73m 2 Estimated GFR (Non- Cindy 32 >=60 mL/min/1.73m 2 BUN Creatinine Ratio 10.0 Calcium 8.3 8.5-10.1 mg/dL Performing Lab: see note ML - [facility] LB CBC AUTO DIFF (Not yet revie wed by provider) Interpretation: Performing Lab: Notes/Report: [facility] , White Blood Count 5.4 4.0-11.0 10 3/uL Red Blood Count 3.41 4.20-5.40 10 6/uL Hemoglobin 10.6 12.0-16.0 g/dL Hematocrit 32.5 36.0-48.0 % Mean Corpuscular Volume 95.3 81.0-99.0 fL Mean Corpuscular Hemoglobin 31.1 26.7-34.0 pg Mean Corpuscular HGB Conc 32.6 29.9-35.2 g/dL Red Cell Distribution Width 12.8 11.0-15.0 % Platelet Count 64 150-450 10 3/uL Mean Platelet Volume 13.9 9.5-13.5 fL Neutrophils Percent Auto 48.0 43.0-75.0 % Lymphocytes Percent Auto 24.9 20.5-60.0 % Monocytes Percent Auto 21.0 1.7-12.0 % Eosinophils Percent Auto 3.9 0.9-7.0 % Basophils Percent Auto 0.4 0.2-2.0 % Immature Granulocytes Pct Auto 1.8 0.0-0.5 % Neutrophils Absolute Auto 2.6 1.4-6.5 10 3/uL Lymphocytes Absolute Auto 1.4 1.2-3.8 10 3/uL Monocytes Absolute Auto 1.1 0.3-0.8 10 3/uL Eosinophils Absolute Auto 0.2 0.0-0.7 10 3/uL Basophils Absolute Auto 0.0 0.0-0.1 10 3/uL Immature Granulocytes Abs Auto 0.10 0.00-0.03 10 3/uL Performing Lab: see note ML - [facility] LB PROF CHEM 8 (BAS METB) (Not yet reviewed by provider) Interpretation: Performing Lab: Notes/Report: [facility] , Sodium 138 136-145 mmol/L Potassium 3.9 3.5-5.1 mmol/L Chloride 102 98-107 mmol/L Carbon Dioxide 28.6 21.0-32.0 mmol/L Anion Gap 11.3 Glucose 122 74-106 mg/dL Blood Urea Nitrogen 20.0 7.0-18.0 mg/dL Creatinine 1.68 0.55-1.02 mg/dL Estimated GFR ( Nya 37 >=60 mL/min/1.73m 2 Estimated GFR (Non- Cindy 30 >=60 mL/min/1.73m 2 BUN Creatinine Ratio 11.9 Calcium 8.7 8.5-10.1 mg/dL Performing Lab: see note ML - [facility] LB CBC AUTO DIFF (Not yet revie wed by provider) Interpretation: Performing Lab: Notes/Report: [facility] , White Blood Count 5.6 4.0-11.0 10 3/uL Red Blood Count 2.90 4.20-5.40 10 6/uL Hemoglobin 9.3 12.0-16.0 g/dL Hematocrit 27.7 36.0-48.0 % Mean Corpuscular Volume 95.5 81.0-99.0 fL Mean Corpuscular Hemoglobin 32.1 26.7-34.0 pg Mean Corpuscular HGB Conc 33.6 29.9-35.2 g/dL Red Cell Distribution Width 13.3 11.0-15.0 % Platelet Count 258 150-450 10 3/uL Mean Platelet Volume 10.5 9.5-13.5 fL Performing Lab: see note ML - [facility] LB PROF 14(COMP METB) (Not yet reviewed by provider) Interpretation: Performing Lab: Notes/Report: [facility] , Sodium 136 136-145 mmol/L Potassium 3.3 3.5-5.1 mmol/L Chloride 100 98-107 mmol/L Carbon Dioxide 24.9 21.0-32.0 mmol/L Anion Gap 14.4 Glucose 123 74-106 mg/dL Blood Urea Nitrogen 9.0 7.0-18.0 mg/dL Creatinine 1.72 0.55-1.02 mg/dL Estimated GFR ( Nya 36 >=60 mL/min/1.73m 2 Estimated GFR (Non- Cindy 29 >=60 mL/min/1.73m 2 BUN Creatinine Ratio 5.2 Calcium 8.7 8.5-10.1 mg/dL Bilirubin Total 0.2 0.2-1.0 mg/dL Aspartate Amino Transferase 28 15-37 U/L Alanine Aminotransferase 32 14-59 U/L Alkaline Phosphatase 93 46-116 U/L Total Protein 7.6 6.4-8.2 g/dL Albumin Level 3.3 3.4-5.0 g/dL Globulin 4.3 Albumin Globulin Ratio 0.8 Performing Lab: see note - [facility] LB Manual Differential (Not yet reviewed by provider) Interpretation: Performing Lab: Notes/Report: [facility] , Segmented Neutrophils % Manual 68.0 43.0-75.0 Lymphocytes Percent Manual 11.0 20.5-60.0 % Monocytes Percent Manual 18.0 1.7-12.0 % Eosinophils Percent Manual 3.0 0.9-7.0 % Basophils Percent Manual 0.0 0.2-2.0 % Segmented Neut Absolute Manual 3.80 1.4-6.5 10 3/uL Lymphocytes Absolute Manual 0.61 1.20-3.80 10 3/uL Monocytes Absolute Manual 1.00 0.30-0 .80 10 3/uL Eosinophils Absolute Manual 0.16 0.00-0.70 10 3/uL Basophils Abs Manual 0.00 0.00-0.10 1 0 3/uL Performing Lab: see note - [facility] LB Blood Culture 2 (Not yet rev iewed by provider) Interpretation: Performing Lab: Notes/Report: [facility] , Blood Culture 2 See Below For Report Blood Culture 2 NG5D NO GROWTH AT 5 DAYS.^NO GROWTH AT 5 DAYS. Performing Lab: see note - [facility] LB Blood Culture 1 (Not yet rev iewed by provider) Interpretation: Performing Lab: Notes/Report: [facility] , Blood Culture 1 See Below For Report Blood Culture 1 NG5D NO GROWTH AT 5 DAYS.^NO GROWTH AT 5 DAYS. Performing Lab: see note - [facility] LB PROF 14(COMP METB) (Not yet reviewed by provider) Interpretation: Performing Lab: Notes/Report: [facility] , Sodium 140 136-145 mmol/L Potassium 3.7 3.5-5.1 mmol/L Chloride 102 98-107 mmol/L Carbon Dioxide 27.3 21.0-32.0 mmol/L Anion Gap 14.4 Glucose 148 74-106 mg/dL Blood Urea Nitrogen 15.0 7.0-18.0 mg/dL Creatinine 1.50 0.55-1.02 mg/dL Estimated GFR ( Nya 42 >=60 mL/min/1.73m 2 Estimated GFR (Non- Cindy 35 >=60 mL/min/1.73m 2 BUN Creatinine Ratio 10.0 Calcium 8.5 8.5-10.1 mg/dL Bilirubin Total 0.2 0.2-1.0 mg/dL Aspartate Amino Transferase 25 15-37 U/L Alanine Aminotransferase 24 14-59 U/L Alkaline Phosphatase 98 46-116 U/L Total Protein 7.6 6.4-8.2 g/dL Albumin Level 3.6 3.4-5.0 g/dL Globulin 4.0 Albumin Globulin Ratio 0.9 Performing Lab: see note ML - [facility] LB PROF 14(COMP METB) (Not yet reviewed by provider) Interpretation: Performing Lab: Notes/Report: [facility] , Sodium 136 136-145 mmol/L Potassium 3.5 3.5-5.1 mmol/L Chloride 101 98-107 mmol/L Carbon Dioxide 26.8 21.0-32.0 mmol/L Anion Gap 11.7 Glucose 133 74-106 mg/dL Blood Urea Nitrogen 9.0 7.0-18.0 mg/dL Creatinine 1.84 0.55-1.02 mg/dL Estimated GFR ( Nya 33 >=60 mL/min/1.73m 2 Estimated GFR (Non- Cindy 27 >=60 mL/min/1.73m 2 BUN Creatinine Ratio 4.9 Calcium 9.3 8.5-10.1 mg/dL Bilirubin Total 0.3 0.2-1.0 mg/dL Aspartate Amino Transferase 25 15-37 U/L Alanine Aminotransferase 19 14-59 U/L Alkaline Phosphatase 97 46-116 U/L Total Protein 7.6 6.4-8.2 g/dL Albumin Level 3.2 3.4-5.0 g/dL Globulin 4.4 Albumin Globulin Ratio 0.7 Performing Lab: see note ML - [facility] LB TSH (Not yet reviewed by pro vider) Interpretation: Performing Lab: Notes/Report: [facility] , Thyroid Stimulating Hormone 2.680 0.358-3.740 uIU/mL Performing Lab: see note ML - [facility] LB MAGNESIUM (Not yet reviewed by provider) Interpretation: Performing Lab: Notes/Report: [facility] , Magnesium 1.7 1.8-2.4 mg/dL Performing Lab: see note ML - [facility] LB Blood Culture 2 (Not yet rev iewed by provider) Interpretation: Performing Lab: Notes/Report: RT AC [facility] , Blood Culture 2 See Below For Report Blood Culture 2 NG5D NO GROWTH AT 5 DAYS.^NO GROWTH AT 5 DAYS. Performing Lab: see note ML - [facility] LB CBC AUTO DIFF (Not yet revie wed by provider) Interpretation: Performing Lab: Notes/Report: [facility] , White Blood Count 6.7 4.0-11.0 10 3/uL Red Blood Count 3.51 4.20-5.40 10 6/uL Hemoglobin 11.1 12.0-16.0 g/dL Hematocrit 34.7 36.0-48.0 % Mean Corpuscular Volume 98.9 81.0-99.0 fL Mean Corpuscular Hemoglobin 31.6 26.7-34.0 pg Mean Corpuscular HGB Conc 32.0 29.9-35.2 g/dL Red Cell Distribution Width 13.8 11.0-15.0 % Platelet Count 129 150-450 10 3/uL Mean Platelet Volume 11.9 9.5-13.5 fL Neutrophils Percent Auto 61.3 43.0-75.0 % Lymphocytes Percent Auto 17.6 20.5-60.0 % Monocytes Percent Auto 15.0 1.7-12.0 % Eosinophils Percent Auto 5.2 0.9-7.0 % Basophils Percent Auto 0.6 0.2-2.0 % Immature Granulocytes Pct Auto 0.3 0.0-0.5 % Neutrophils Absolute Auto 4.1 1.4-6.5 10 3/uL Lymphocytes Absolute Auto 1.2 1.2-3.8 10 3/uL Monocytes Absolute Auto 1.0 0.3-0.8 10 3/uL Eosinophils Absolute Auto 0.4 0.0-0.7 10 3/uL Basophils Absolute Auto 0.0 0.0-0.1 10 3/uL Immature Granulocytes Abs Auto 0.02 0.00-0.03 10 3/uL Performing Lab: see note ML - [facility] LB TSH W/ REFLEX FT4 (Not yet r eviewed by provider) Interpretation: Performing Lab: Notes/Report: [facility] , TSH W/ REFLEX FT4 2.597 0.358-3.740 uIU/mL Performing Lab: see note ML - [facility] LB PROF 14(COMP METB) (Not yet reviewed by provider) Interpretation: Performing Lab: Notes/Report: [facility] , Sodium 137 136-145 mmol/L Potassium 4.3 3.5-5.1 mmol/L Chloride 104 98-107 mmol/L Carbon Dioxide 26.4 21.0-32.0 mmol/L Anion Gap 10.9 Glucose 129 74-106 mg/dL Blood Urea Nitrogen 20.0 7.0-18.0 mg/dL Creatinine 1.62 0.55-1.02 mg/dL Estimated GFR ( Nya 38 >=60 mL/min/1.73m 2 Estimated GFR (Non- Cindy 32 >=60 mL/min/1.73m 2 BUN Creatinine Ratio 12.3 Calcium 8.6 8.5-10.1 mg/dL Bilirubin Total 0.3 0.2-1.0 mg/dL Aspartate Amino Transferase 16 15-37 U/L Alanine Aminotransferase 19 14-59 U/L Alkaline Phosphatase 91 46-116 U/L Total Protein 7.4 6.4-8.2 g/dL Albumin Level 3.5 3.4-5.0 g/dL Globulin 3.9 Albumin Globulin Ratio 0.9 Performing Lab: see note ML - [facility] LB MAGNESIUM (Not yet reviewed by provider) Interpretation: Performing Lab: Notes/Report: [facility] , Magnesium 1.7 1.8-2.4 mg/dL Performing Lab: see note ML - [facility] LB CBC AUTO DIFF (Not yet revie wed by provider) Interpretation: Performing Lab: Notes/Report: [facility] , White Blood Count 7.4 4.0-11.0 10 3/uL Red Blood Count 3.35 4.20-5.40 10 6/uL Hemoglobin 10.8 12.0-16.0 g/dL Hematocrit 34.4 36.0-48.0 % Mean Corpuscular Volume 102.7 81.0-99.0 fL Mean Corpuscular Hemoglobin 32.2 26.7-34.0 pg Mean Corpuscular HGB Conc 31.4 29.9-35.2 g/dL Red Cell Distribution Width 15.4 11.0-15.0 % Platelet Count 181 150-450 10 3/uL Mean Platelet Volume 12.1 9.5-13.5 fL Neutrophils Percent Auto 70.9 43.0-75.0 % Lymphocytes Percent Auto 12.4 20.5-60.0 % Monocytes Percent Auto 14.4 1.7-12.0 % Eosinophils Percent Auto 1.5 0.9-7.0 % Basophils Percent Auto 0.5 0.2-2.0 % Immature Granulocytes Pct Auto 0.3 0.0-0.5 % Neutrophils Absolute Auto 5.2 1.4-6.5 10 3/uL Lymphocytes Absolute Auto 0.9 1.2-3.8 10 3/uL Monocytes Absolute Auto 1.1 0.3-0.8 10 3/uL Eosinophils Absolute Auto 0.1 0.0-0.7 10 3/uL Basophils Absolute Auto 0.0 0.0-0.1 10 3/uL Immature Granulocytes Abs Auto 0.02 0.00-0.03 10 3/uL Performing Lab: see note - [facility] LB Manual Differential (Not yet reviewed by provider) Interpretation: Performing Lab: Notes/Report: [facility] , Segmented Neutrophils % Manual 41.0 43.0-75.0 Band Neutrophils % 2.0 0-5 % Lymphocytes Percent Manual 40.0 20.5-60.0 % Monocytes Percent Manual 15.0 1.7-12.0 % Eosinophils Percent Manual 0.0 0.9-7.0 % Basophils Percent Manual 1.0 0.2-2.0 % Segmented Neut Absolute Manual 0.94 1.4-6.5 10 3/uL Band Neutrophils Absolute 0.0 0.0-0.3 10 3/uL Lymphocytes Absolute Manual 0.92 1.20-3.80 10 3/uL Monocytes Absolute Manual 0.34 0.30-0 .80 10 3/uL Eosinophils Absolute Manual 0.00 0.00-0.70 10 3/uL Basophils Abs Manual 0.02 0.00-0.10 1 0 3/uL Performing Lab: see note - [facility] LB XR chest 1V Reviewed date:08/16/2024 03:09:57 PM Interpretation: Performing Lab: Notes/Report: Source Facility: [address] [address] [address] XRay Report Signed Patient: ISELA DE LA ROSA MR#: [id number] : 1955 Acct:[id number] Age/Sex: 69 / F ADM Date: 08/16/24 Loc: SURGOUT Attending Dr: Judith Martines M.D. Ordering Physician: Judith Martines M.D. Date of Service: 08/16/24 Procedure(s): XR chest 1V Accession Number(s): [id number] cc: Brenda Baker M.D.; Judith Martines M.D. [address] [address] Patient Name: ISELA DE LA ROSA MRN: [id number] date: 1955 Sex: F Assigned Patient Location: [facility] Current Patient Location: [facility] Accession/Order Number: [id number] Exam Date: 08/16/2024 13:25 Report Date: 08/16/2024 13:59 At the request of: JUDITH MARTINES Procedure: XR chest 1V EXAM: XR chest 1V at 1317 hours HISTORY: s/p port placement COMPARISON: 08/16/2024 TECHNIQUE: AP upright portable chest x-ray FINDINGS: There has been interval placement of a right-sided infusion catheter with the tip in the superior vena cava. The left-sided PICC line remains in place. The heart is not enlarged and the vasculature is not distended. Opacity persist in the right upper lung compatible with a mass, and this is unchanged. Interval development of atelectasis or infiltrate in the infrahilar region on the left. There is no evidence of an effusion or pneumothorax. The osseous structures are grossly intact. XR/XR chest 1V IMPRESSION: Interval placement of the infusion catheter on the right. The PICC line remains in place. The opacity indicating a mass at the right apex remains unchanged. There is no evidence of a pneumothorax. Interval development of atelectasis or infiltrate at the left lung base in the infrahilar region is noted. Electronically authenticated by: CELINA ZHENG Date: 08/16/2024 13:59 Dictated By: Celina Zheng M.D. Signed By: 08/16/24 1402 DD/ 1359 TD/TT: Interchange Agent: [place] [address] XRay Report Signed Patient: ARNALDO DE LA ROSA MR#: [id number] : 1955 Acct:[id number] Age/Sex: 69 / F ADM Date: 08/16/24 Loc: SURGOUT Attending Dr: Jennifer Martines M.D. Ordering Physician: Judith Martines M.D. Date of Service: 08/16/24 Procedure(s): XR chest 1V Accession Number(s): [id number] cc: Brenda Baker M.D. ; Judith Martines M.D. [place] [address] Patient Name: ISELA DE LA ROSA MRN: [id number] date: 1955 Sex: F Assigned Patient Location: [facility] Current Patient Loca tion: SURGOUT Accession/Order Numb er: [id number] Exam Date: 08/16/2024 13:25 Report Date: 08/16/2024 13:59 At the request of: JUDITH MARTINES Procedure: XR chest 1V EXAM: XR chest 1V at 1317 hours HISTORY: s/p port placement COMPARISON: 08/16/2024 TECHNIQUE: AP uprigh t portable chest x-ray FINDINGS: There has been interval placement of a right-sided infusion catheter with the tip in the superior vena cava. The left-sided PICC line remains in place. The heart is not enlarged and the vasculature is not distended. Opacity persist in the right upper lung compatible with a mass, and this is unchanged. Interval development of atelectasis or infiltrate in the infrahilar region on the left. There is n o evidence of an effusion or pneumothorax. The osseous structures are gross ly intact. X R/XR chest 1V IMPRESSION: Interval placement o f the infusion catheter on the right. The PICC line remains in place. The opacit y indicating a mass at the right apex remains unchanged. There is no evidence of a pneumothorax. Interval development of atelectasis or infiltrate at the le ft lung base in the infrahilar region is noted. Electronically authenticated by: CELINA ZHENG Date: 08/16/2024 13:59 Dictated By: Cristopher Zheng M.D. Signed By: 08/16/24 1402 DD/ 1359 TD/TT: Interchange Agent: [facility] Reviewed date:08/16/2024 03:09:57 PM Interpretation: Performing Lab: Notes/Report: [facility] , Iron 26.0 50.0-170.0 ug/dL Total Iron Binding Capacity 269.0 250.0-450.0 ug/dL Percent Iron Saturation 9.7 Performing Lab: see note ML - [facility] LB FREE T4 Reviewed date:08/16/2024 03:09:57 PM Interpretation: Performing Lab: Notes/Report: [facility] , Free T4 0.97 0.76-1.46 ng/dL Performing Lab: see note ML - [facility] LB FERRITIN Reviewed date:08/16/2024 03:09:57 PM Interpretation: Performing Lab: Notes/Report: [facility] , Ferritin 694.0 8.0-252.0 ng/mL Performing Lab: see note ML - [facility] LB US venous doppler UE RT Reviewed date:08/03/2024 12:57:05 PM Interpretation: Performing Lab: Notes/Report: Source Facility: [place] [address] [place] [address] Ultrasound Report Signed Patient: ISELA DE LA ROSA MR#: [id number] : 1955 Acct:[id number] Age/Sex: 69 / F ADM Date: 08/02/24 Loc: US Attending Dr: Brenda Baker M.D. Ordering Physician: Brenda Baker M.D. Date of Service: 08/02/24 Procedure(s): US venous doppler UE RT Accession Number(s): [id number] cc: Brenda Baker M.D. The [address] [address] Patient Name: ISELA DE LA ROSA MRN: [id number] date: 1955 Sex: F Assigned Patient Location: US Current Patient Location: Accession/Order Number: [id number] Exam Date: 08/02/2024 17:25 Report Date: 08/03/2024 07:10 At the request of: BRENDA BAKER Procedure: US venous doppler UE RT EXAM: US venous doppler UE RT HISTORY: LOCALIZED SWELLING OF RIGHT FOREARM R22.31 COMPARISON: None. TECHNIQUE: Grayscale, color and Doppler FINDINGS: Region: Right arm Thrombus: None Flow: Normal Augmentation: Normal Compressibility: Normal US/US venous doppler UE RT IMPRESSION: No deep or superficial vein thrombus identified in the right arm Electronically authenticated by: JOAQUIM CHAN Date: 08/03/2024 07:10 Dictated By: Joaquim Chan M.D. Signed By: 08/03/2413 DD/ TD/TT: Interchange Agent: [place] [address] Ultrasound Report Signed Patient: ARNALDO DE LA ROSA MR#: [id number] : 1955 Acct:[id number] Age/Sex: 69 / F ADM Date: 08/02/24 Loc: US Attending Dr: Preeti Baker M.D. Ordering Physician: Brenda Baker M.D. Date of Service: 08/02/24 Procedure(s): US navneet ous doppler UE RT Accession Number(s): [id number] cc: Brenda Baker M.D. [address] [address] Patient Name: ISELA DE LA ROSA MRN: [id number] date: 1955 Sex: F Assigned Patient Location: US Current Patient Location: Accession/Order Numb er: [id number] Exam Date: 08/02/2024 17:25 Report Date: 08/03/2024 07:10 At the request of: BRENDA BAKER Procedure: US venous doppler UE RT EXAM: US venous dopp ler UE RT HISTORY: LOCALIZED SWELLING OF RIGHT FOREARM R22.31 COMPARISON: None. TECHNIQUE: Grayscale , color and Doppler FINDINGS: Region: Right arm Thrombus: None Flow: Normal Augmentation: Normal Compressibility: Normal U S/US venous doppler UE RT IMPRESSION: No deep or superfici al vein thrombus identified in the right arm Electronically authenticated by: JOAQUIM CHAN Date: 08/03/2024 07:10 Dictated By: Eduard Chan M.D. Signed By: 08/03/24712 DD/ TD/TT: Interchange Agent: MAGNESIUM (Not yet reviewed by provider) Interpretation: Performing Lab: Notes/Report: [facility] , Magnesium 1.8 1.8-2.4 mg/dL Performing Lab: see note ML - [facility] LB PROF 14(COMP METB) (Not yet reviewed by provider) Interpretation: Performing Lab: Notes/Report: [facility] , Sodium 138 136-145 mmol/L Potassium 3.6 3.5-5.1 mmol/L Chloride 103 98-107 mmol/L Carbon Dioxide 26.4 21.0-32.0 mmol/L Anion Gap 12.2 Glucose 116 74-106 mg/dL Blood Urea Nitrogen 29.0 7.0-18.0 mg/dL Creatinine 1.89 0.55-1.02 mg/dL Estimated GFR ( Nya 32 >=60 mL/min/1.73m 2 Estimated GFR (Non- Cindy 26 >=60 mL/min/1.73m 2 BUN Creatinine Ratio 15.3 Calcium 8.8 8.5-10.1 mg/dL Bilirubin Total 0.2 0.2-1.0 mg/dL Aspartate Amino Transferase 19 15-37 U/L Alanine Aminotransferase 24 14-59 U/L Alkaline Phosphatase 79 46-116 U/L Total Protein 7.3 6.4-8.2 g/dL Albumin Level 3.6 3.4-5.0 g/dL Globulin 3.7 Albumin Globulin Ratio 1.0 Performing Lab: see note ML - [facility] LB URINE MICROSCOPIC ONLY Reviewed date:08/16/2024 03:09:57 PM Interpretation: Performing Lab: Notes/Report: [facility] , WBC Urine 2-5 NONE SEEN #/HPF RBC Urine NONE SEEN 0-2 #/HPF Bacteria Urine TRACE NONE SEEN #/HPF Mucus Urine NONE SEEN NONE SEEN Squamous Epithelial Cell Urine RARE NONE/RARE #/LPF Crystals Seen? None Seen None Seen #/HPF Cast Seen? NONE SEEN NONE SEEN #/LPF Urine Culture Indicated NO Performing Lab: see note ML - [facility] LB UA (CLEAN or CATCH) OUTREACH ASSISTANT or M ICRO IF IND. Reviewed date:08/16/2024 03:09:57 PM Interpretation: Performing Lab: Notes/Report: [facility] , Color Urine LT. YELLOW YELLOW Clarity Urine CLEAR CLEAR Specific [place] Urine <=1.005 1.005-1.025 pH Urine 6.0 5.0-9.0 Protein Urine NEGATIVE NEG/TRACE mg/dL Glucose Urine UA NEGATIVE NEGATIVE mg/dL Bilirubin Urine NEGATIVE NEGATIVE Ketones Urine NEGATIVE NEGATIVE mg/dL Blood Urine NEGATIVE NEGATIVE Nitrite Urine NEGATIVE NEGATIVE Urobilinogen Urine 0.2 0.2-1.0 EU/dL Leukocyte Esterase Urine SMALL NEGATIVE Urine Microscopic Indicated YES Performing Lab: see note ML - [facility] LB CBC AUTO DIFF (Not yet revie wed by provider) Interpretation: Performing Lab: Notes/Report: [facility] , White Blood Count 6.6 4.0-11.0 10 3/uL Red Blood Count 3.53 4.20-5.40 10 6/uL Hemoglobin 10.9 12.0-16.0 g/dL Hematocrit 33.7 36.0-48.0 % Mean Corpuscular Volume 95.5 81.0-99.0 fL Mean Corpuscular Hemoglobin 30.9 26.7-34.0 pg Mean Corpuscular HGB Conc 32.3 29.9-35.2 g/dL Red Cell Distribution Width 16.0 11.0-15.0 % Platelet Count 154 150-450 10 3/uL Mean Platelet Volume 11.7 9.5-13.5 fL Neutrophils Percent Auto 65.1 43.0-75.0 % Lymphocytes Percent Auto 16.6 20.5-60.0 % Monocytes Percent Auto 16.3 1.7-12.0 % Eosinophils Percent Auto 1.2 0.9-7.0 % Basophils Percent Auto 0.5 0.2-2.0 % Immature Granulocytes Pct Auto 0.3 0.0-0.5 % Neutrophils Absolute Auto 4.3 1.4-6.5 10 3/uL Lymphocytes Absolute Auto 1.1 1.2-3.8 10 3/uL Monocytes Absolute Auto 1.1 0.3-0.8 10 3/uL Eosinophils Absolute Auto 0.1 0.0-0.7 10 3/uL Basophils Absolute Auto 0.0 0.0-0.1 10 3/uL Immature Granulocytes Abs Auto 0.02 0.00-0.03 10 3/uL Performing Lab: see note ML - [facility] PROF 14(COMP METB) (Not yet reviewed by provider) Interpretation: Performing Lab: Notes/Report: [facility] , Sodium 137 136-145 mmol/L Potassium 4.0 3.5-5.1 mmol/L Chloride 101 98-107 mmol/L Carbon Dioxide 26.1 21.0-32.0 mmol/L Anion Gap 13.9 Glucose 137 74-106 mg/dL Blood Urea Nitrogen 24.0 7.0-18.0 mg/dL Creatinine 1.85 0.55-1.02 mg/dL Estimated GFR ( Nya 33 >=60 mL/min/1.73m 2 Estimated GFR (Non- Cindy 27 >=60 mL/min/1.73m 2 BUN Creatinine Ratio 13.0 Calcium 8.4 8.5-10.1 mg/dL Bilirubin Total 0.3 0.2-1.0 mg/dL Aspartate Amino Transferase 21 15-37 U/L Alanine Aminotransferase 26 14-59 U/L Alkaline Phosphatase 82 46-116 U/L Total Protein 7.4 6.4-8.2 g/dL Albumin Level 3.6 3.4-5.0 g/dL Globulin 3.8 Albumin Globulin Ratio 0.9 Performing Lab: see note ML - [facility] FREE T4 Reviewed date:08/16/2024 03:09:57 PM Interpretation: Performing Lab: Notes/Report: [facility] , Free T4 0.94 0.76-1.46 ng/dL Performing Lab: see note - [facility] CBC AUTO DIFF (Not yet revie wed by provider) Interpretation: Performing Lab: Notes/Report: [facility] , White Blood Count 8.7 4.0-11.0 10 3/uL Red Blood Count 3.36 4.20-5.40 10 6/uL Hemoglobin 10.4 12.0-16.0 g/dL Hematocrit 31.3 36.0-48.0 % Mean Corpuscular Volume 93.2 81.0-99.0 fL Mean Corpuscular Hemoglobin 31.0 26.7-34.0 pg Mean Corpuscular HGB Conc 33.2 29.9-35.2 g/dL Red Cell Distribution Width 15.4 11.0-15.0 % Platelet Count 174 150-450 10 3/uL Mean Platelet Volume 12.5 9.5-13.5 fL Neutrophils Percent Auto 80.4 43.0-75.0 % Lymphocytes Percent Auto 9.8 20.5-60.0 % Monocytes Percent Auto 8.9 1.7-12.0 % Eosinophils Percent Auto 0.2 0.9-7.0 % Basophils Percent Auto 0.2 0.2-2.0 % Immature Granulocytes Pct Auto 0.5 0.0-0.5 % Neutrophils Absolute Auto 7.0 1.4-6.5 10 3/uL Lymphocytes Absolute Auto 0.9 1.2-3.8 10 3/uL Monocytes Absolute Auto 0.8 0.3-0.8 10 3/uL Eosinophils Absolute Auto 0.0 0.0-0.7 10 3/uL Basophils Absolute Auto 0.0 0.0-0.1 10 3/uL Immature Granulocytes Abs Auto 0.04 0.00-0.03 10 3/uL Performing Lab: see note ML - [facility] LB FERRITIN Reviewed date:08/16/2024 03:09:57 PM Interpretation: Performing Lab: Notes/Report: [facility] , Ferritin 979.0 8.0-252.0 ng/mL Performing Lab: see note ML - [facility] LB IRON AND TIBC (Not yet revie wed by provider) Interpretation: Performing Lab: Notes/Report: [facility] , Iron 56.0 50.0-170.0 ug/dL Total Iron Binding Capacity 291.0 250.0-450.0 ug/dL Percent Iron Saturation 19.2 Performing Lab: see note ML - [facility] LB Box Test Reviewed date:08/16/2024 03:09:57 PM Interpretation: Performing Lab: Notes/Report: URINE CULTURE [facility] , BOX Test Sent Out URINE CULTURE --- 07/20/24 0932 --- BOX Test Sent previously reported as: Y BOX Test Reference Lab [facility] BOX Test Date Sent 07/17/24 BOX Test Result NO GROWTH 2 DAYS Performing Lab: see note ML - [facility] LB Manual Differential Reviewed date:08/16/2024 03:09:58 PM Interpretation: Performing Lab: Notes/Report: [facility] , Segmented Neutrophils % Manual 81.0 43.0-75.0 Band Neutrophils % 2.0 0-5 % Lymphocytes Percent Manual 14.0 20.5-60.0 % Monocytes Percent Manual 2.0 1.7-12.0 % Eosinophils Percent Manual 0.0 0.9-7.0 % Basophils Percent Manual 0.0 0.2-2.0 % Metamyelocytes % 1.0 Segmented Neut Absolute Manual 2.43 1.4-6.5 10 3/uL Band Neutrophils Absolute 0.1 0.0-0.3 10 3/uL Lymphocytes Absolute Manual 0.42 1.20-3.80 10 3/uL Monocytes Absolute Manual 0.06 0.30-0 .80 10 3/uL Eosinophils Absolute Manual 0.00 0.00-0.70 10 3/uL Basophils Abs Manual 0.00 0.00-0.10 1 0 3/uL Metamyelocytes Absolute Manual 0.03 Performing Lab: see note ML - [facility] LB CBC AUTO DIFF (Not yet revie wed by provider) Interpretation: Performing Lab: Notes/Report: [facility] , White Blood Count 6.6 4.0-11.0 10 3/uL Red Blood Count 3.34 4.20-5.40 10 6/uL Hemoglobin 10.4 12.0-16.0 g/dL Hematocrit 31.3 36.0-48.0 % Mean Corpuscular Volume 93.7 81.0-99.0 fL Mean Corpuscular Hemoglobin 31.1 26.7-34.0 pg Mean Corpuscular HGB Conc 33.2 29.9-35.2 g/dL Red Cell Distribution Width 14.6 11.0-15.0 % Platelet Count 214 150-450 10 3/uL Mean Platelet Volume 10.5 9.5-13.5 fL Neutrophils Percent Auto 62.3 43.0-75.0 % Lymphocytes Percent Auto 21.2 20.5-60.0 % Monocytes Percent Auto 14.5 1.7-12.0 % Eosinophils Percent Auto 1.1 0.9-7.0 % Basophils Percent Auto 0.3 0.2-2.0 % Immature Granulocytes Pct Auto 0.6 0.0-0.5 % Neutrophils Absolute Auto 4.1 1.4-6.5 10 3/uL Lymphocytes Absolute Auto 1.4 1.2-3.8 10 3/uL Monocytes Absolute Auto 1.0 0.3-0.8 10 3/uL Eosinophils Absolute Auto 0.1 0.0-0.7 10 3/uL Basophils Absolute Auto 0.0 0.0-0.1 10 3/uL Immature Granulocytes Abs Auto 0.04 0.00-0.03 10 3/uL Performing Lab: see note ML - [facility] LB UA RANDOM Reviewed date:08/16/2024 03:09:57 PM Interpretation: Performing Lab: Notes/Report: [facility] , Color Urine LT. YELLOW YELLOW Clarity Urine CLEAR CLEAR Specific [place] Urine <=1.005 1.005-1.025 pH Urine 6.0 5.0-9.0 Protein Urine TRACE NEG/TRACE mg/dL Glucose Urine UA NEGATIVE NEGATIVE mg/dL Bilirubin Urine NEGATIVE NEGATIVE Ketones Urine NEGATIVE NEGATIVE mg/dL Blood Urine TRACE-L NEGATIVE Nitrite Urine NEGATIVE NEGATIVE Urobilinogen Urine 0.2 0.2-1.0 EU/dL Leukocyte Esterase Urine NEGATIVE NEGATIVE Performing Lab: see note - [facility] LB PROF 14(COMP METB) Reviewed date:08/16/2024 03:09:57 PM Interpretation: Performing Lab: Notes/Report: [facility] , Sodium 140 136-145 mmol/L Potassium 3.7 3.5-5.1 mmol/L Chloride 103 98-107 mmol/L Carbon Dioxide 27.4 21.0-32.0 mmol/L Anion Gap 13.3 Glucose 141 74-106 mg/dL Blood Urea Nitrogen 16.0 7.0-18.0 mg/dL Creatinine 1.22 0.55-1.02 mg/dL Estimated GFR ( Nya 53 >=60 mL/min/1.73m 2 Estimated GFR (Non- Cindy 44 >=60 mL/min/1.73m 2 BUN Creatinine Ratio 13.1 Calcium 8.6 8.5-10.1 mg/dL Bilirubin Total 0.4 0.2-1.0 mg/dL Aspartate Amino Transferase 19 15-37 U/L Alanine Aminotransferase 22 14-59 U/L Alkaline Phosphatase 124 46-116 U/L Total Protein 7.1 6.4-8.2 g/dL Albumin Level 3.3 3.4-5.0 g/dL Globulin 3.8 Albumin Globulin Ratio 0.9 Performing Lab: see note ML - [facility] LB PROF 14(COMP METB) (Not yet reviewed by provider) Interpretation: Performing Lab: Notes/Report: [facility] , Sodium 141 136-145 mmol/L Potassium 4.5 3.5-5.1 mmol/L Chloride 105 98-107 mmol/L Carbon Dioxide 25.0 21.0-32.0 mmol/L Anion Gap 15.5 Glucose 110 74-106 mg/dL Blood Urea Nitrogen 17.0 7.0-18.0 mg/dL Creatinine 1.52 0.55-1.02 mg/dL Estimated GFR ( Nya 41 >=60 mL/min/1.73m 2 Estimated GFR (Non- Cindy 34 >=60 mL/min/1.73m 2 BUN Creatinine Ratio 11.2 Calcium 8.8 8.5-10.1 mg/dL Bilirubin Total 0.3 0.2-1.0 mg/dL Aspartate Amino Transferase 23 15-37 U/L Alanine Aminotransferase 18 14-59 U/L Alkaline Phosphatase 101 46-116 U/L Total Protein 7.7 6.4-8.2 g/dL Albumin Level 3.5 3.4-5.0 g/dL Globulin 4.2 Albumin Globulin Ratio 0.8 Performing Lab: see note ML - [facility] LB CBC AUTO DIFF (Not yet revie wed by provider) Interpretation: Performing Lab: Notes/Report: [facility] , White Blood Count 6.9 4.0-11.0 10 3/uL Red Blood Count 2.97 4.20-5.40 10 6/uL Hemoglobin 9.1 12.0-16.0 g/dL Hematocrit 27.6 36.0-48.0 % Mean Corpuscular Volume 92.9 81.0-99.0 fL Mean Corpuscular Hemoglobin 30.6 26.7-34.0 pg Mean Corpuscular HGB Conc 33.0 29.9-35.2 g/dL Red Cell Distribution Width 12.9 11.0-15.0 % Platelet Count 195 150-450 10 3/uL Mean Platelet Volume 11.9 9.5-13.5 fL Neutrophils Percent Auto 65.3 43.0-75.0 % Lymphocytes Percent Auto 18.2 20.5-60.0 % Monocytes Percent Auto 14.3 1.7-12.0 % Eosinophils Percent Auto 1.2 0.9-7.0 % Basophils Percent Auto 0.3 0.2-2.0 % Immature Granulocytes Pct Auto 0.7 0.0-0.5 % Neutrophils Absolute Auto 4.5 1.4-6.5 10 3/uL Lymphocytes Absolute Auto 1.3 1.2-3.8 10 3/uL Monocytes Absolute Auto 1.0 0.3-0.8 10 3/uL Eosinophils Absolute Auto 0.1 0.0-0.7 10 3/uL Basophils Absolute Auto 0.0 0.0-0.1 10 3/uL Immature Granulocytes Abs Auto 0.05 0.00-0.03 10 3/uL Performing Lab: see note ML - [facility] LB CBC AUTO DIFF Reviewed date:08/16/2024 03:09:57 PM Interpretation: Performing Lab: Notes/Report: [facility] , White Blood Count 3.0 4.0-11.0 10 3/uL Red Blood Count 2.87 4.20-5.40 10 6/uL Hemoglobin 8.9 12.0-16.0 g/dL Hematocrit 27.2 36.0-48.0 % Mean Corpuscular Volume 94.8 81.0-99.0 fL Mean Corpuscular Hemoglobin 31.0 26.7-34.0 pg Mean Corpuscular HGB Conc 32.7 29.9-35.2 g/dL Red Cell Distribution Width 16.3 11.0-15.0 % Platelet Count 55 150-450 10 3/uL Mean Platelet Volume 13.8 9.5-13.5 fL Performing Lab: see note - [facility] LB PROF 14(COMP METB) Reviewed date:08/16/2024 03:09:58 PM Interpretation: Performing Lab: Notes/Report: [facility] , Sodium 142 136-145 mmol/L Potassium 3.3 3.5-5.1 mmol/L Chloride 105 98-107 mmol/L Carbon Dioxide 25.7 21.0-32.0 mmol/L Anion Gap 14.6 Glucose 147 74-106 mg/dL Blood Urea Nitrogen 12.0 7.0-18.0 mg/dL Creatinine 1.25 0.55-1.02 mg/dL Estimated GFR ( Nya 52 >=60 mL/min/1.73m 2 Estimated GFR (Non- Cindy 43 >=60 mL/min/1.73m 2 BUN Creatinine Ratio 9.6 Calcium 8.9 8.5-10.1 mg/dL Bilirubin Total 0.2 0.2-1.0 mg/dL Aspartate Amino Transferase 14 15-37 U/L Alanine Aminotransferase 21 14-59 U/L Alkaline Phosphatase 103 46-116 U/L Total Protein 7.5 6.4-8.2 g/dL Albumin Level 3.3 3.4-5.0 g/dL Globulin 4.2 Albumin Globulin Ratio 0.8 Performing Lab: see note ML - [facility] LB PROF 14(COMP METB) (Not yet reviewed by provider) Interpretation: Performing Lab: Notes/Report: [facility] , Sodium 140 136-145 mmol/L Potassium 4.0 3.5-5.1 mmol/L Chloride 104 98-107 mmol/L Carbon Dioxide 25.7 21.0-32.0 mmol/L Anion Gap 14.3 Glucose 102 74-106 mg/dL Blood Urea Nitrogen 20.0 7.0-18.0 mg/dL Creatinine 1.44 0.55-1.02 mg/dL Estimated GFR ( Nya 44 >=60 mL/min/1.73m 2 Estimated GFR (Non- Cindy 36 >=60 mL/min/1.73m 2 BUN Creatinine Ratio 13.9 Calcium 8.7 8.5-10.1 mg/dL Bilirubin Total 0.2 0.2-1.0 mg/dL Aspartate Amino Transferase 16 15-37 U/L Alanine Aminotransferase 15 14-59 U/L Alkaline Phosphatase 100 46-116 U/L Total Protein 7.1 6.4-8.2 g/dL Albumin Level 3.1 3.4-5.0 g/dL Globulin 4.0 Albumin Globulin Ratio 0.8 Performing Lab: see note - [facility] LB MAGNESIUM Reviewed date:08/16/2024 03:09:58 PM Interpretation: Performing Lab: Notes/Report: [facility] , Magnesium 1.3 1.8-2.4 mg/dL Performing Lab: see note - [facility] LB PROF CHEM 8 (BAS METB) (Not yet reviewed by provider) Interpretation: Performing Lab: Notes/Report: [facility] , Sodium 135 136-145 mmol/L Potassium 3.5 3.5-5.1 mmol/L Chloride 101 98-107 mmol/L Carbon Dioxide 26.4 21.0-32.0 mmol/L Anion Gap 11.1 Glucose 107 74-106 mg/dL Blood Urea Nitrogen 18.0 7.0-18.0 mg/dL Creatinine 1.49 0.55-1.02 mg/dL Estimated GFR ( Nya 42 >=60 mL/min/1.73m 2 Estimated GFR (Non- Cindy 35 >=60 mL/min/1.73m 2 BUN Creatinine Ratio 12.1 Calcium 8.4 8.5-10.1 mg/dL Performing Lab: see note - [facility] LB Manual Differential (Not yet reviewed by provider) Interpretation: Performing Lab: Notes/Report: [facility] , Segmented Neutrophils % Manual 76.0 43.0-75.0 Lymphocytes Percent Manual 14.0 20.5-60.0 % Monocytes Percent Manual 8.0 1.7-12.0 % Eosinophils Percent Manual 1.0 0.9-7.0 % Basophils Percent Manual 1.0 0.2-2.0 % Segmented Neut Absolute Manual 4.02 1.4-6.5 10 3/uL Lymphocytes Absolute Manual 0.74 1.20-3.80 10 3/uL Monocytes Absolute Manual 0.42 0.30-0 .80 10 3/uL Eosinophils Absolute Manual 0.05 0.00-0.70 10 3/uL Basophils Abs Manual 0.05 0.00-0.10 1 0 3/uL Performing Lab: see note - [facility] LB CBC AUTO DIFF (Not yet revie wed by provider) Interpretation: Performing Lab: Notes/Report: [facility] , White Blood Count 5.8 4.0-11.0 10 3/uL Red Blood Count 3.65 4.20-5.40 10 6/uL Hemoglobin 11.1 12.0-16.0 g/dL Hematocrit 35.3 36.0-48.0 % Mean Corpuscular Volume 96.7 81.0-99.0 fL Mean Corpuscular Hemoglobin 30.4 26.7-34.0 pg Mean Corpuscular HGB Conc 31.4 29.9-35.2 g/dL Red Cell Distribution Width 15.0 11.0-15.0 % Platelet Count 145 150-450 10 3/uL Mean Platelet Volume 12.9 9.5-13.5 fL Neutrophils Percent Auto 66.4 43.0-75.0 % Lymphocytes Percent Auto 15.9 20.5-60.0 % Monocytes Percent Auto 15.9 1.7-12.0 % Eosinophils Percent Auto 1.0 0.9-7.0 % Basophils Percent Auto 0.3 0.2-2.0 % Immature Granulocytes Pct Auto 0.5 0.0-0.5 % Neutrophils Absolute Auto 3.9 1.4-6.5 10 3/uL Lymphocytes Absolute Auto 0.9 1.2-3.8 10 3/uL Monocytes Absolute Auto 0.9 0.3-0.8 10 3/uL Eosinophils Absolute Auto 0.1 0.0-0.7 10 3/uL Basophils Absolute Auto 0.0 0.0-0.1 10 3/uL Immature Granulocytes Abs Auto 0.03 0.00-0.03 10 3/uL Performing Lab: see note ML - [facility] LB PROF 14(COMP METB) (Not yet reviewed by provider) Interpretation: Performing Lab: Notes/Report: [facility] , Sodium 138 136-145 mmol/L Potassium 4.2 3.5-5.1 mmol/L Chloride 103 98-107 mmol/L Carbon Dioxide 26.5 21.0-32.0 mmol/L Anion Gap 12.7 Glucose 104 74-106 mg/dL Blood Urea Nitrogen 16.0 7.0-18.0 mg/dL Creatinine 1.50 0.55-1.02 mg/dL Estimated GFR ( Nya 42 >=60 mL/min/1.73m 2 Estimated GFR (Non- Cindy 35 >=60 mL/min/1.73m 2 BUN Creatinine Ratio 10.7 Calcium 8.3 8.5-10.1 mg/dL Bilirubin Total 0.3 0.2-1.0 mg/dL Aspartate Amino Transferase 14 15-37 U/L Alanine Aminotransferase 14 14-59 U/L Alkaline Phosphatase 127 46-116 U/L Total Protein 7.1 6.4-8.2 g/dL Albumin Level 2.9 3.4-5.0 g/dL Globulin 4.2 Albumin Globulin Ratio 0.7 Performing Lab: see note ML - [facility] LB CBC AUTO DIFF (Not yet revie wed by provider) Interpretation: Performing Lab: Notes/Report: [facility] , White Blood Count 6.4 4.0-11.0 10 3/uL Red Blood Count 4.01 4.20-5.40 10 6/uL Hemoglobin 11.8 12.0-16.0 g/dL Hematocrit 38.0 36.0-48.0 % Mean Corpuscular Volume 94.8 81.0-99.0 fL Mean Corpuscular Hemoglobin 29.4 26.7-34.0 pg Mean Corpuscular HGB Conc 31.1 29.9-35.2 g/dL Red Cell Distribution Width 13.6 11.0-15.0 % Platelet Count 161 150-450 10 3/uL Mean Platelet Volume 13.5 9.5-13.5 fL Neutrophils Percent Auto 67.7 43.0-75.0 % Lymphocytes Percent Auto 15.9 20.5-60.0 % Monocytes Percent Auto 14.8 1.7-12.0 % Eosinophils Percent Auto 0.6 0.9-7.0 % Basophils Percent Auto 0.5 0.2-2.0 % Immature Granulocytes Pct Auto 0.5 0.0-0.5 % Neutrophils Absolute Auto 4.4 1.4-6.5 10 3/uL Lymphocytes Absolute Auto 1.0 1.2-3.8 10 3/uL Monocytes Absolute Auto 1.0 0.3-0.8 10 3/uL Eosinophils Absolute Auto 0.0 0.0-0.7 10 3/uL Basophils Absolute Auto 0.0 0.0-0.1 10 3/uL Immature Granulocytes Abs Auto 0.03 0.00-0.03 10 3/uL Performing Lab: see note ML - [facility] LB MAGNESIUM (Not yet reviewed by provider) Interpretation: Performing Lab: Notes/Report: [facility] , Magnesium 2.0 1.8-2.4 mg/dL Performing Lab: see note ML - [facility] LB PROF 14(COMP METB) (Not yet reviewed by provider) Interpretation: Performing Lab: Notes/Report: [facility] , Sodium 141 136-145 mmol/L Potassium 4.2 3.5-5.1 mmol/L Chloride 105 98-107 mmol/L Carbon Dioxide 24.9 21.0-32.0 mmol/L Anion Gap 15.3 Glucose 99 74-106 mg/dL Blood Urea Nitrogen 25.0 7.0-18.0 mg/dL Creatinine 1.35 0.55-1.02 mg/dL Estimated GFR ( Nya 47 >=60 mL/min/1.73m 2 Estimated GFR (Non- Cindy 39 >=60 mL/min/1.73m 2 BUN Creatinine Ratio 18.5 Calcium 8.9 8.5-10.1 mg/dL Bilirubin Total 0.2 0.2-1.0 mg/dL Aspartate Amino Transferase 15 15-37 U/L Alanine Aminotransferase 15 14-59 U/L Alkaline Phosphatase 113 46-116 U/L Total Protein 7.4 6.4-8.2 g/dL Albumin Level 3.0 3.4-5.0 g/dL Globulin 4.4 Albumin Globulin Ratio 0.7 Performing Lab: see note ML - [facility] LB PET skull to mid thigh Reviewed date:08/16/2024 03:09:58 PM Interpretation: Performing Lab: Notes/Report: Source Facility: [facility]-[address] [place] [address] [place] [address] PET Report Signed Patient: ISELA DE LA ROSA MR#: [id number] : 1955 Acct:[id number] Age/Sex: 69 / F ADM Date: 07/10/24 Loc: PETCT Attending Dr: Kristi Chester M.D. Ordering Physician: Kristi Chester M.D. Date of Service: 07/10/24 Procedure(s): PET skull to mid thigh Accession Number(s): [id number] cc: Kristi Chester M.D.; Brenda Baker M.D. [place] [id number] Patient Name: ISELA DE LA ROSA MRN: [id number] date: 1955 Sex: F Assigned Patient Location: PETCT Current Patient Location: PETCT Accession/Order Number: [id number] Exam Date: 07/10/2024 15:57 Report Date: 07/10/2024 21:55 At the request of: KRISTI CHESTER Procedure: PET skull to mid thigh PET/CT: HISTORY: Lung cancer with history of chemotherapy 06/20/2024. COMPARISON: PET/CT 03/06/2024. TECHNIQUE: The patient was injected with 13.89 mCi of F-18 fluorodeoxyglucose (FDG), and an emission scan was performed from the base of the skull to the mid thigh. Noncontrast CT was performed for attenuation correction and anatomic localization. The blood glucose level was 113 mg/dl. The uptake time was 50 minutes. FINDINGS: HEAD AND NECK: There is intense diffuse activity again seen in the thyroid gland, image 55, SUV max 10, previously 10.7 and the thyroid appears diffusely enlarged on CT. A previously noted hypermetabolic right supraclavicular lymph node has improved with an SUV max of 3.6, previously 10.4 and measuring 8 mm, previously 9 mm. CHEST: The SUVmax of the mediastinum = 2.6 using the patient's body weight as the normalization method. There is intense activity about the tip of the PICC in the SVC consistent with residual injected activity. The previously noted hypermetabolic masslike opacity in the right upper lobe currently demonstrates an SUV max of 4.6, previously 9.8 and measures 2.9 x 4.6 cm, previously 3.7 x 6.1 cm. Adjacent groundglass opacity and interlobular septal thickening is again noted and stable. A previously noted groundglass nodule in the superior segment of the left lower lobe appears stable measuring 1.1 cm with minimal activity, SUV max 1.7, previously 1.9. Hypermetabolic mediastinal right hilar lymph nodes are again seen which appear improving including for example a subcarinal node on image 91 with SUV max 5.0, previously 9.7 and this measures approximately 1.4 x 1.3 cm, previously 1.5 x 1.9 cm. Right paratracheal and right hilar lymph nodes also appear improving. ABDOMEN AND PELVIS: The previously noted hypermetabolic lesion in the right lobe of the liver appears resolved. Otherwise normal distribution of activity. MUSCULOSKELETAL SYSTEM: Multiple hypermetabolic osseous lesions are again noted. Index lesions include in the left T2 vertebral body, image 61, SUV max 12.7, previously 9.0 measuring 1.7 x 1.6 cm, previously 1.5 x 1.1 cm, the anterior L1 vertebral body, image 147, SUV max 20, previously 12.6 measuring 2.4 x 1.2 cm, previously 1.4 x 0.9 cm and the sacrum on image 204, SUV max 15.7, previously 12.1 measuring 1.5 x 1.2 cm, previously 1.6 x [address] FINDINGS: There is mild atherosclerotic coronary artery calcification. There is a stable 5 mm right lower lobe pulmonary nodule on image 111. There is low attenuation of the blood in the ventricular chambers consistent with anemia. The patient is status-post hysterectomy. There are multiple non-hypermetabolic sclerotic osseous lesions consistent with treated metastases. PET/PET skull to mid thigh IMPRESSION: 1. Interval improvement in the hypermetabolic right upper lobe pulmonary malignancy. Adjacent interlobular septal thickening is again noted which may be due to lymphangitic carcinomatosis, hemorrhage or asymmetric interstitial edema. 2. Improving right supraclavicular, mediastinal and right hilar kym metastases. 3. Resolved metastatic lesion in the liver. 4. Multifocal osseous metastases appear progressed compared to the previous study however this could potentially be due to chemotherapy related flare phenomenon given the otherwise favorable response to therapy. Consider a follow-up CT 6 months after completion of therapy. 5. Stable diffuse intense FDG uptake in the thyroid gland which appears enlarged. This may be due to thyroiditis or Graves' disease. 6. Additional CT findings as described above including stable pulmonary nodules. Electronically authenticated by: CARIE MOTTA Date: 07/10/2024 21:55 Dictated By: Carie Motta M.D. Signed By: 07/10/242157 DD/ 54 TD/TT: Interchange Agent: The [address] [address] PET Report Signed Patient: ARNALDO DE LA ROSA MR#: [id number] : 1955 Acct:[id number] Age/Sex: 69 / F ADM Date: 07/10/24 Loc: PETCT Attending Dr: Manas Chester M.D. Ordering Physician: Kristi Chester M.D. Date of Service: 07/10/24 Procedure(s): PET sk ull to mid thigh Accession Number(s): [id number] cc: Kristi Chester; Brenda Baker M.D. The [address] [id number] Patient Name: ISELA DE LA ROSA MRN: [id number] date: 1955 Sex: F Assigned Patient Location: PETCT Current Patient Loca tion: PETCT Accession/Order Numb er: [id number] Exam Date: 15:57 Report Date: 07/10/2024 21:55 At the request of: KRISTI CHESTER Procedure: PET skull to mid thigh PET/CT: HISTORY: Lung cancer with history of chemotherapy 06/20/2024. COMPARISON: PET/CT 03/06/2024. TECHNIQUE: The patie nt was injected with 13.89 mCi of F-18 fluorodeoxyglucose (FDG), and an emissi on scan was performed from the base of the skull to the mid thigh. Noncontrast C T was performed for attenuation correction and anatomic localization. The bl ood glucose level was 113 mg/dl. The uptake time was 50 minutes. FINDINGS: HEAD AND NECK: There is intense diffuse activity again seen in the thyroid gland, image 55, SUV max 10, previously 10.7 and the thyroid appears diffusely enlarged on CT. A previously noted hypermetabolic right supraclavicular lymph node has improved wi th an SUV max of 3.6, previously 10.4 and measuring 8 mm, previously 9 mm. CHEST: The SUVmax of the mediastinum = 2.6 using the patient's body weight as the normalization me thod. There is intense activity about the tip of the PICC in the SVC consisten t with residual injected activity. The previously noted hypermetabolic massl migdalia opacity in the right upper lobe currently demonstrates an SUV max of 4.6, previously 9.8 and measures 2.9 x 4.6 cm, previously 3.7 x 6.1 cm. Adjacent groundglass opacity and interlobular septal thickening is again noted and stab le. A previously noted groundglass nodule in the superior segment of the left lower lobe appears stable measuring 1.1 cm with minimal activity, SUV max 1. 7, previously 1.9. Hypermetabolic mediastinal right hilar lymph nodes are agai n seen which appear improving including for example a subcarinal node on i mage 91 with SUV max 5.0, previously 9.7 and this measures approximately 1.4 x 1.3 cm, previously 1.5 x 1.9 cm. Right paratracheal and right hilar lymph no radah also appear improving. ABDOMEN AND PELVIS: The previously noted hypermetabolic lesion in the right lobe of the liver ap pears resolved. Otherwise normal distribution of activity. MUSCULOSKELETAL SYST EM: Multiple hypermetabolic osseous lesions are again noted. Index lesions include in the left T2 vertebral body, image 61, SUV max 12.7, previously 9.0 measuring 1.7 x 1.6 cm, previously 1.5 x 1.1 cm, the anterior L1 vertebra l body, image 147, SUV max 20, previously 12.6 measuring 2.4 x 1.2 cm, previo usly 1.4 x 0.9 cm and the sacrum on image 204, SUV max 15.7, previously 12. 1 measuring 1.5 x 1.2 cm, previously 1.6 x [address] FINDIN GS: There is mild atherosclerotic coronary artery calcification. There is a stable 5 mm right lower lobe pulmonary nodule on image 111. There is low attenuation of the blood in the ventricular chambers consistent with anem ia. The patient is status-post hysterectomy. There are multiple non-hypermetabolic sclerotic osseous lesions consistent with treated metastases. PET/PET skull to mid thigh IMPRESSION: 1. Interval improvem ent in the hypermetabolic right upper lobe pulmonary malignancy. Adjacent interlobular septal thickening is again noted which may be due to lymphangitic carcinomatosis, hemorrhage or asymmetric interstitial edema. 2. Improving right supraclavicular, mediastinal and right hilar kym metastases. 3. Resolved metastat ic lesion in the liver. 4. Multifocal osseou s metastases appear progressed compared to the previous study however this c ould potentially be due to chemotherapy related flare phenomenon given the otherwise favorable response to therapy. Consider a follow-up CT 6 month s after completion of therapy. 5. Stable diffuse in tense FDG uptake in the thyroid gland which appears enlarged. This may b e due to thyroiditis or Graves' disease. 6. Additional CT fin dings as described above including stable pulmonary nodules. Electronically authenticated by: CARIE MOTTA Date: 07/10/2024 21:55 Dictated By: Ashlee Motta M.D. Signed By: 07/10/242157 DD/ 54 TD/TT: Interchange Agent: TSH Reviewed date:08/16/2024 03:09:58 PM Interpretation: Performing Lab: Notes/Report: [facility] , Thyroid Stimulating Hormone 8.836 0.358-3.740 uIU/mL Performing Lab: see note ML - [facility] LB PROF 14(COMP METB) Reviewed date:08/16/2024 03:09:58 PM Interpretation: Performing Lab: Notes/Report: [facility] , Sodium 140 136-145 mmol/L Potassium 3.3 3.5-5.1 mmol/L Chloride 104 98-107 mmol/L Carbon Dioxide 26.6 21.0-32.0 mmol/L Anion Gap 12.7 Glucose 114 74-106 mg/dL Blood Urea Nitrogen 16.0 7.0-18.0 mg/dL Creatinine 1.45 0.55-1.02 mg/dL Estimated GFR ( Nya 44 >=60 mL/min/1.73m 2 Estimated GFR (Non- Cindy 36 >=60 mL/min/1.73m 2 BUN Creatinine Ratio 11.0 Calcium 7.9 8.5-10.1 mg/dL Bilirubin Total 0.2 0.2-1.0 mg/dL Aspartate Amino Transferase 16 15-37 U/L Alanine Aminotransferase 25 14-59 U/L Alkaline Phosphatase 110 46-116 U/L Total Protein 7.5 6.4-8.2 g/dL Albumin Level 3.3 3.4-5.0 g/dL Globulin 4.2 Albumin Globulin Ratio 0.8 Performing Lab: see note ML - [facility] LB MAGNESIUM Reviewed date:08/16/2024 03:09:58 PM Interpretation: Performing Lab: Notes/Report: [facility] , Magnesium 1.2 1.8-2.4 mg/dL Performing Lab: see note ML - [facility] LB CBC AUTO DIFF Reviewed date:08/16/2024 03:09:58 PM Interpretation: Performing Lab: Notes/Report: [facility] , White Blood Count 7.7 4.0-11.0 10 3/uL Red Blood Count 2.97 4.20-5.40 10 6/uL Hemoglobin 9.3 12.0-16.0 g/dL Hematocrit 27.8 36.0-48.0 % Mean Corpuscular Volume 93.6 81.0-99.0 fL Mean Corpuscular Hemoglobin 31.3 26.7-34.0 pg Mean Corpuscular HGB Conc 33.5 29.9-35.2 g/dL Red Cell Distribution Width 17.2 11.0-15.0 % Platelet Count 340 150-450 10 3/uL Mean Platelet Volume 10.3 9.5-13.5 fL Neutrophils Percent Auto 58.0 43.0-75.0 % Lymphocytes Percent Auto 26.2 20.5-60.0 % Monocytes Percent Auto 14.5 1.7-12.0 % Eosinophils Percent Auto 0.3 0.9-7.0 % Basophils Percent Auto 0.3 0.2-2.0 % Immature Granulocytes Pct Auto 0.7 0.0-0.5 % Neutrophils Absolute Auto 4.5 1.4-6.5 10 3/uL Lymphocytes Absolute Auto 2.0 1.2-3.8 10 3/uL Monocytes Absolute Auto 1.1 0.3-0.8 10 3/uL Eosinophils Absolute Auto 0.0 0.0-0.7 10 3/uL Basophils Absolute Auto 0.0 0.0-0.1 10 3/uL Immature Granulocytes Abs Auto 0.05 0.00-0.03 10 3/uL Performing Lab: see note ML - [facility] LB Urine Culture, Routine Reviewed date:08/16/2024 03:09:58 PM Interpretation: Performing Lab: Notes/Report: [facility] , Urine Culture, Routine See Below For Report Urine Culture, Routine Urine Culture, Routine Culture shows les s than 10,000 colony forming units of bacteria per Urine Culture, Routine Urine Culture, Routine milliliter of uri ne. This colony count is not generally considered Urine Culture, Routine Urine Culture, Routine to be clinically significant. Urine Culture, Routine Urine Culture, Routine Performed at: - [facility] [place] Urine Culture, Routine Urine Culture, Routine [address], [place] [id number] Urine Culture, Routine Urine Culture, Routine [place] Fisherman: Brenton Hamilton PhD, Phone: [phone] Urine Culture, Routine Performing Lab: see note LC - [facility] LB SEE REPORT - Cd Technician Id information not found for OBX-specific broadcast producer legend UA RANDOM Reviewed date:08/16/2024 03:09:58 PM Interpretation: Performing Lab: Notes/Report: [facility] , Color Urine LT. YELLOW YELLOW Clarity Urine CLEAR CLEAR Specific [place] Urine <=1.005 1.005-1.025 pH Urine 6.0 5.0-9.0 Protein Urine NEGATIVE NEG/TRACE mg/dL Glucose Urine UA NEGATIVE NEGATIVE mg/dL Bilirubin Urine NEGATIVE NEGATIVE Ketones Urine NEGATIVE NEGATIVE mg/dL Blood Urine NEGATIVE NEGATIVE Nitrite Urine NEGATIVE NEGATIVE Urobilinogen Urine 0.2 0.2-1.0 EU/dL Leukocyte Esterase Urine NEGATIVE NEGATIVE Performing Lab: see note ML - [facility] LB TSH Reviewed date:08/16/2024 03:09:58 PM Interpretation: Performing Lab: Notes/Report: [facility] , Thyroid Stimulating Hormone 6.925 0.358-3.740 uIU/mL Performing Lab: see note ML - [facility] LB PROF 14(COMP METB) Reviewed date:08/16/2024 03:09:58 PM Interpretation: Performing Lab: Notes/Report: [facility] , Sodium 140 136-145 mmol/L Potassium 3.8 3.5-5.1 mmol/L Chloride 103 98-107 mmol/L Carbon Dioxide 24.7 21.0-32.0 mmol/L Anion Gap 16.1 Glucose 135 74-106 mg/dL Blood Urea Nitrogen 12.0 7.0-18.0 mg/dL Creatinine 1.57 0.55-1.02 mg/dL Estimated GFR ( Nya 40 >=60 mL/min/1.73m 2 Estimated GFR (Non- Cindy 33 >=60 mL/min/1.73m 2 BUN Creatinine Ratio 7.6 Calcium 8.5 8.5-10.1 mg/dL Bilirubin Total 0.2 0.2-1.0 mg/dL Aspartate Amino Transferase 18 15-37 U/L Alanine Aminotransferase 20 14-59 U/L Alkaline Phosphatase 121 46-116 U/L Total Protein 7.5 6.4-8.2 g/dL Albumin Level 3.3 3.4-5.0 g/dL Globulin 4.2 Albumin Globulin Ratio 0.8 Performing Lab: see note ML - [facility] FREE T4 Reviewed date:08/16/2024 03:09:58 PM Interpretation: Performing Lab: Notes/Report: [facility] , Free T4 0.73 0.76-1.46 ng/dL Performing Lab: see note ML - [facility] Vitamin B12 Reviewed date:08/16/2024 03:09:58 PM Interpretation: Performing Lab: Notes/Report: [facility] , Vitamin B12 >2000 232-1245 pg/mL Performed at: - [facility] [address] [id number] [place] Fisherman: Anibal Hamilton PhD, Phone: [phone] Performing Lab: see note - [facility] LB Erythrocyte Sedimentation Ra te Reviewed date:08/16/2024 03:09:58 PM Interpretation: Performing Lab: Notes/Report: [facility] , Erythrocyte Sedimentation Rate 73 <=30 mm/hr Performing Lab: see note ML - [facility] LB TSH Reviewed date:08/16/2024 03:09:58 PM Interpretation: Performing Lab: Notes/Report: [facility] , Thyroid Stimulating Hormone 5.192 0.358-3.740 uIU/mL Performing Lab: see note - [facility] LB PROF 14(COMP METB) Reviewed date:08/16/2024 03:09:58 PM Interpretation: Performing Lab: Notes/Report: [facility] , Sodium 140 136-145 mmol/L Potassium 3.4 3.5-5.1 mmol/L Chloride 102 98-107 mmol/L Carbon Dioxide 24.9 21.0-32.0 mmol/L Anion Gap 16.5 Glucose 122 74-106 mg/dL Blood Urea Nitrogen 14.0 7.0-18.0 mg/dL Creatinine 1.41 0.55-1.02 mg/dL Estimated GFR ( Nya 45 >=60 mL/min/1.73m 2 Estimated GFR (Non- Cindy 37 >=60 mL/min/1.73m 2 BUN Creatinine Ratio 9.9 Calcium 8.0 8.5-10.1 mg/dL Bilirubin Total 0.2 0.2-1.0 mg/dL Aspartate Amino Transferase 13 15-37 U/L Alanine Aminotransferase 23 14-59 U/L Alkaline Phosphatase 121 46-116 U/L Total Protein 7.4 6.4-8.2 g/dL Albumin Level 3.2 3.4-5.0 g/dL Globulin 4.2 Albumin Globulin Ratio 0.8 Performing Lab: see note ML - [facility] LB MAGNESIUM Reviewed date:08/16/2024 03:09:58 PM Interpretation: Performing Lab: Notes/Report: [facility] , Magnesium 1.4 1.8-2.4 mg/dL Performing Lab: see note ML - [facility] LB FOLATE Reviewed date:08/16/2024 03:09:58 PM Interpretation: Performing Lab: Notes/Report: [facility] , Folate 9.40 8.60-58.90 ng/mL Performing Lab: see note ML - [facility] LB FERRITIN Reviewed date:08/16/2024 03:09:58 PM Interpretation: Performing Lab: Notes/Report: [facility] , Ferritin 853.0 8.0-252.0 ng/mL Performing Lab: see note ML - [facility] LB CBC AUTO DIFF Reviewed date:08/16/2024 03:09:58 PM Interpretation: Performing Lab: Notes/Report: [facility] , White Blood Count 4.7 4.0-11.0 10 3/uL Red Blood Count 3.09 4.20-5.40 10 6/uL Hemoglobin 9.3 12.0-16.0 g/dL Hematocrit 27.6 36.0-48.0 % Mean Corpuscular Volume 89.3 81.0-99.0 fL Mean Corpuscular Hemoglobin 30.1 26.7-34.0 pg Mean Corpuscular HGB Conc 33.7 29.9-35.2 g/dL Red Cell Distribution Width 15.6 11.0-15.0 % Platelet Count 77 150-450 10 3/uL Mean Platelet Volume 13.8 9.5-13.5 fL Neutrophils Percent Auto 55.6 43.0-75.0 % Lymphocytes Percent Auto 27.7 20.5-60.0 % Monocytes Percent Auto 14.6 1.7-12.0 % Eosinophils Percent Auto 0.4 0.9-7.0 % Basophils Percent Auto 0.6 0.2-2.0 % Immature Granulocytes Pct Auto 1.1 0.0-0.5 % Neutrophils Absolute Auto 2.6 1.4-6.5 10 3/uL Lymphocytes Absolute Auto 1.3 1.2-3.8 10 3/uL Monocytes Absolute Auto 0.7 0.3-0.8 10 3/uL Eosinophils Absolute Auto 0.0 0.0-0.7 10 3/uL Basophils Absolute Auto 0.0 0.0-0.1 10 3/uL Immature Granulocytes Abs Auto 0.05 0.00-0.03 10 3/uL Performing Lab: see note ML - [facility] LB CBC AUTO DIFF Reviewed date:08/16/2024 03:09:58 PM Interpretation: Performing Lab: Notes/Report: [facility] , White Blood Count 5.5 4.0-11.0 10 3/uL Red Blood Count 3.00 4.20-5.40 10 6/uL Hemoglobin 9.0 12.0-16.0 g/dL Hematocrit 26.2 36.0-48.0 % Mean Corpuscular Volume 87.3 81.0-99.0 fL Mean Corpuscular Hemoglobin 30.0 26.7-34.0 pg Mean Corpuscular HGB Conc 34.4 29.9-35.2 g/dL Red Cell Distribution Width 14.4 11.0-15.0 % Platelet Count 48 150-450 10 3/uL SPECIMEN REDRAWN DUE TO PLATELET CLUMPING. PLATELET CLUMPING MAY FALSELY LOWER THE PLATELET COUNT. Mean Platelet Volume 13.8 9.5-13.5 fL Neutrophils Percent Auto 69.4 43.0-75.0 % Lymphocytes Percent Auto 16.8 20.5-60.0 % Monocytes Percent Auto 12.1 1.7-12.0 % Eosinophils Percent Auto 0.4 0.9-7.0 % Basophils Percent Auto 0.2 0.2-2.0 % Immature Granulocytes Pct Auto 1.1 0.0-0.5 % Neutrophils Absolute Auto 3.9 1.4-6.5 10 3/uL Lymphocytes Absolute Auto 0.9 1.2-3.8 10 3/uL Monocytes Absolute Auto 0.7 0.3-0.8 10 3/uL Eosinophils Absolute Auto 0.0 0.0-0.7 10 3/uL Basophils Absolute Auto 0.0 0.0-0.1 10 3/uL Immature Granulocytes Abs Auto 0.06 0.00-0.03 10 3/uL Performing Lab: see note - [facility] LB Urine Culture, Routine Reviewed date:08/16/2024 03:09:58 PM Interpretation: Performing Lab: Notes/Report: [facility] , Urine Culture, Routine See Below For Report Urine Culture, Routine Urine Culture, Routine No growth Urine Culture, Routine Urine Culture, Routine Performed at: [facility] Urine Culture, Routine Urine Culture, Routine [address] [place] [phone] Urine Culture, Routine Urine Culture, Routine [place] Fisherman: Brenton Hamilton PhD, Phone: [phone] Urine Culture, Routine Performing Lab: see note - [facility] LB SEE REPORT - Cd Technician Id information not found for OBX-specific broadcast producer legend UA RANDOM Reviewed date:08/16/2024 03:09:58 PM Interpretation: Performing Lab: Notes/Report: [facility] , Color Urine LT. YELLOW YELLOW Clarity Urine CLEAR CLEAR Specific [place] Urine <=1.005 1.005-1.025 pH Urine 6.0 5.0-9.0 Protein Urine NEGATIVE NEG/TRACE mg/dL Glucose Urine UA NEGATIVE NEGATIVE mg/dL Bilirubin Urine NEGATIVE NEGATIVE Ketones Urine NEGATIVE NEGATIVE mg/dL Blood Urine TRACE-I NEGATIVE Nitrite Urine NEGATIVE NEGATIVE Urobilinogen Urine 0.2 0.2-1.0 EU/dL Leukocyte Esterase Urine NEGATIVE NEGATIVE Performing Lab: see note - [facility] LB CBC AUTO DIFF Reviewed date:08/16/2024 03:09:58 PM Interpretation: Performing Lab: Notes/Report: [facility] , White Blood Count 8.3 4.0-11.0 10 3/uL Red Blood Count 3.57 4.20-5.40 10 6/uL Hemoglobin 10.5 12.0-16.0 g/dL Hematocrit 31.3 36.0-48.0 % Mean Corpuscular Volume 87.7 81.0-99.0 fL Mean Corpuscular Hemoglobin 29.4 26.7-34.0 pg Mean Corpuscular HGB Conc 33.5 29.9-35.2 g/dL Red Cell Distribution Width 14.4 11.0-15.0 % Platelet Count 47 150-450 10 3/uL Performing Lab: see note - [facility] PROF CHEM 8 (BAS METB) Reviewed date:08/16/2024 03:09:58 PM Interpretation: Performing Lab: Notes/Report: [facility] , Sodium 145 136-145 mmol/L Potassium 2.9 3.5-5.1 mmol/L RESULTS [place]ENTON D TO DHEERAJ GALVEZ RN @BY Andreina Tapia at 0943 Chloride 105 98-107 mmol/L Carbon Dioxide 31.2 21.0-32.0 mmol/L Anion Gap 11.7 Glucose 102 74-106 mg/dL Blood Urea Nitrogen 7.0 7.0-18.0 mg/dL Creatinine 0.98 0.55-1.02 mg/dL Estimated GFR ( Nya >60 >=60 mL/min/1.73m 2 Estimated GFR (Non- Cindy 56 >=60 mL/min/1.73m 2 BUN Creatinine Ratio 7.1 Calcium 8.1 8.5-10.1 mg/dL Performing Lab: see note - [facility] LB TSH Reviewed date:08/16/2024 03:09:58 PM Interpretation: Performing Lab: Notes/Report: [facility] , Thyroid Stimulating Hormone 3.174 0.358-3.740 uIU/mL Performing Lab: see note [facility] LB PROF 14(COMP METB) Reviewed date:08/16/2024 03:09:58 PM Interpretation: Performing Lab: Notes/Report: [facility] , Sodium 141 136-145 mmol/L Potassium 2.6 3.5-5.1 mmol/L RESULTS SERENITY BURT(RN)-INFUSION Chloride 98 98-107 mmol/L Carbon Dioxide 32.4 21.0-32.0 mmol/L Anion Gap 13.2 Glucose 125 74-106 mg/dL Blood Urea Nitrogen 7.0 7.0-18.0 mg/dL Creatinine 0.98 0.55-1.02 mg/dL Estimated GFR ( Nya >60 >=60 mL/min/1.73m 2 Estimated GFR (Non- Cindy 56 >=60 mL/min/1.73m 2 BUN Creatinine Ratio 7.1 Calcium 8.1 8.5-10.1 mg/dL Bilirubin Total 0.3 0.2-1.0 mg/dL Aspartate Amino Transferase 31 15-37 U/L Alanine Aminotransferase 44 14-59 U/L Alkaline Phosphatase 159 46-116 U/L Total Protein 7.4 6.4-8.2 g/dL Albumin Level 3.1 3.4-5.0 g/dL Globulin 4.3 Albumin Globulin Ratio 0.7 Performing Lab: see note ML - [facility] LB MAGNESIUM Reviewed date:08/16/2024 03:09:58 PM Interpretation: Performing Lab: Notes/Report: [facility] , Magnesium 2.1 1.8-2.4 mg/dL Performing Lab: see note - [facility] LB CBC AUTO DIFF Reviewed date:08/16/2024 03:09:58 PM Interpretation: Performing Lab: Notes/Report: [facility] , White Blood Count 8.0 4.0-11.0 10 3/uL Red Blood Count 3.62 4.20-5.40 10 6/uL Hemoglobin 10.6 12.0-16.0 g/dL Hematocrit 31.2 36.0-48.0 % Mean Corpuscular Volume 86.2 81.0-99.0 fL Mean Corpuscular Hemoglobin 29.3 26.7-34.0 pg Mean Corpuscular HGB Conc 34.0 29.9-35.2 g/dL Red Cell Distribution Width 14.0 11.0-15.0 % Platelet Count 162 150-450 10 3/uL Mean Platelet Volume 11.9 9.5-13.5 fL Neutrophils Percent Auto 70.0 43.0-75.0 % Lymphocytes Percent Auto 13.7 20.5-60.0 % Monocytes Percent Auto 15.0 1.7-12.0 % Eosinophils Percent Auto 0.0 0.9-7.0 % Basophils Percent Auto 0.4 0.2-2.0 % Immature Granulocytes Pct Auto 0.9 0.0-0.5 % Neutrophils Absolute Auto 5.6 1.4-6.5 10 3/uL Lymphocytes Absolute Auto 1.1 1.2-3.8 10 3/uL Monocytes Absolute Auto 1.2 0.3-0.8 10 3/uL Eosinophils Absolute Auto 0.0 0.0-0.7 10 3/uL Basophils Absolute Auto 0.0 0.0-0.1 10 3/uL Immature Granulocytes Abs Auto 0.07 0.00-0.03 10 3/uL Performing Lab: see note - [facility] LB PROF 14(COMP METB) Reviewed date:08/16/2024 03:09:58 PM Interpretation: Performing Lab: Notes/Report: [facility] , Sodium 137 136-145 mmol/L Potassium 3.8 3.5-5.1 mmol/L Chloride 100 98-107 mmol/L Carbon Dioxide 25.9 21.0-32.0 mmol/L Anion Gap 14.9 Glucose 104 74-106 mg/dL Blood Urea Nitrogen 13.0 7.0-18.0 mg/dL Creatinine 1.01 0.55-1.02 mg/dL Estimated GFR ( Nya >60 >=60 mL/min/1.73m 2 Estimated GFR (Non- Cindy 55 >=60 mL/min/1.73m 2 BUN Creatinine Ratio 12.9 Calcium 8.6 8.5-10.1 mg/dL Bilirubin Total 0.2 0.2-1.0 mg/dL Aspartate Amino Transferase 28 15-37 U/L Alanine Aminotransferase 52 14-59 U/L Alkaline Phosphatase 201 46-116 U/L Total Protein 7.0 6.4-8.2 g/dL Albumin Level 3.4 3.4-5.0 g/dL Globulin 3.6 Albumin Globulin Ratio 0.9 Performing Lab: see note ML - [facility] LB CBC AUTO DIFF Reviewed date:08/16/2024 03:09:58 PM Interpretation: Performing Lab: Notes/Report: [facility] , White Blood Count 14.3 4.0-11.0 10 3/uL Red Blood Count 3.86 4.20-5.40 10 6/uL Hemoglobin 11.2 12.0-16.0 g/dL Hematocrit 34.0 36.0-48.0 % Mean Corpuscular Volume 88.1 81.0-99.0 fL Mean Corpuscular Hemoglobin 29.0 26.7-34.0 pg Mean Corpuscular HGB Conc 32.9 29.9-35.2 g/dL Red Cell Distribution Width 13.8 11.0-15.0 % Platelet Count 156 150-450 10 3/uL Mean Platelet Volume 11.5 9.5-13.5 fL Performing Lab: see note ML - [facility] LB TSH W/ REFLEX FT4 Reviewed date:08/16/2024 03:09:58 PM Interpretation: Performing Lab: Notes/Report: [facility] , TSH W/ REFLEX FT4 5.193 0.358-3.740 uIU/mL Performing Lab: see note - [facility] LB PROF 14(COMP METB) Reviewed date:08/16/2024 03:09:58 PM Interpretation: Performing Lab: Notes/Report: [facility] , Sodium 142 136-145 mmol/L Potassium 3.6 3.5-5.1 mmol/L Chloride 105 98-107 mmol/L Carbon Dioxide 24.5 21.0-32.0 mmol/L Anion Gap 16.1 Glucose 91 74-106 mg/dL Blood Urea Nitrogen 2.0 7.0-18.0 mg/dL Creatinine 0.68 0.55-1.02 mg/dL Estimated GFR ( Nya >60 >=60 mL/min/1.73m 2 Estimated GFR (Non- Cindy >60 >=60 mL/min/1.73m 2 BUN Creatinine Ratio 2.9 Calcium 8.0 8.5-10.1 mg/dL Bilirubin Total 0.3 0.2-1.0 mg/dL Aspartate Amino Transferase 26 15-37 U/L Alanine Aminotransferase 30 14-59 U/L Alkaline Phosphatase 150 46-116 U/L Total Protein 7.1 6.4-8.2 g/dL Albumin Level 3.3 3.4-5.0 g/dL Globulin 3.8 Albumin Globulin Ratio 0.9 Performing Lab: see note ML - [facility] LB MAGNESIUM Reviewed date:08/16/2024 03:09:58 PM Interpretation: Performing Lab: Notes/Report: [facility] , Magnesium 2.2 1.8-2.4 mg/dL Performing Lab: see note ML - [facility] LB CBC AUTO DIFF Reviewed date:08/16/2024 03:09:58 PM Interpretation: Performing Lab: Notes/Report: [facility] , White Blood Count 3.5 4.0-11.0 10 3/uL Red Blood Count 3.87 4.20-5.40 10 6/uL Hemoglobin 11.2 12.0-16.0 g/dL Hematocrit 34.2 36.0-48.0 % Mean Corpuscular Volume 88.4 81.0-99.0 fL Mean Corpuscular Hemoglobin 28.9 26.7-34.0 pg Mean Corpuscular HGB Conc 32.7 29.9-35.2 g/dL Red Cell Distribution Width 13.6 11.0-15.0 % Platelet Count 273 150-450 10 3/uL Mean Platelet Volume 9.8 9.5-13.5 fL Neutrophils Percent Auto 53.5 43.0-75.0 % Lymphocytes Percent Auto 25.8 20.5-60.0 % Monocytes Percent Auto 19.5 1.7-12.0 % Eosinophils Percent Auto 0.3 0.9-7.0 % Basophils Percent Auto 0.6 0.2-2.0 % Immature Granulocytes Pct Auto 0.3 0.0-0.5 % Neutrophils Absolute Auto 1.9 1.4-6.5 10 3/uL Lymphocytes Absolute Auto 0.9 1.2-3.8 10 3/uL Monocytes Absolute Auto 0.7 0.3-0.8 10 3/uL Eosinophils Absolute Auto 0.0 0.0-0.7 10 3/uL Basophils Absolute Auto 0.0 0.0-0.1 10 3/uL Immature Granulocytes Abs Auto 0.01 0.00-0.03 10 3/uL Performing Lab: see note ML - [facility] LB PROF 14(COMP METB) Reviewed date:04/23/2024 11:36:35 AM Interpretation: Performing Lab: Notes/Report: [facility] , Sodium 137 136-145 mmol/L Potassium 3.8 3.5-5.1 mmol/L Chloride 104 98-107 mmol/L Carbon Dioxide 28.8 21.0-32.0 mmol/L Anion Gap 8.0 Glucose 157 74-106 mg/dL Blood Urea Nitrogen 9.0 7.0-18.0 mg/dL Creatinine 0.64 0.55-1.02 mg/dL Estimated GFR ( Nya >60 >=60 Estimated GFR (Non- Cindy >60 >=60 BUN Creatinine Ratio 14.1 Calcium 7.7 8.5-10.1 mg/dL Bilirubin Total 0.2 0.2-1.0 mg/dL Aspartate Amino Transferase 23 15-37 U/L Alanine Aminotransferase 27 14-59 U/L Alkaline Phosphatase 147 46-116 U/L Total Protein 6.4 6.4-8.2 g/dL Albumin Level 3.0 3.4-5.0 g/dL Globulin 3.4 Albumin Globulin Ratio 0.9 Performing Lab: see note ML - [facility] LB CBC AUTO DIFF Reviewed date:04/23/2024 11:36:35 AM Interpretation: Performing Lab: Notes/Report: [facility] , White Blood Count 6.0 4.0-11.0 10 3/uL Red Blood Count 3.91 4.20-5.40 10 6/uL Hemoglobin 11.3 12.0-16.0 g/dL Hematocrit 34.3 36.0-48.0 % Mean Corpuscular Volume 87.7 81.0-99.0 fL Mean Corpuscular Hemoglobin 28.9 26.7-34.0 pg Mean Corpuscular HGB Conc 32.9 29.9-35.2 g/dL Red Cell Distribution Width 12.8 11.0-15.0 % Platelet Count 184 150-450 10 3/uL Mean Platelet Volume 10.8 9.5-13.5 fL Neutrophils Percent Auto 92.7 43.0-75.0 % Lymphocytes Percent Auto 6.0 20.5-60.0 % Monocytes Percent Auto 0.8 1.7-12.0 % Eosinophils Percent Auto 0.0 0.9-7.0 % Basophils Percent Auto 0.2 0.2-2.0 % Immature Granulocytes Pct Auto 0.3 0.0-0.5 % Neutrophils Absolute Auto 5.5 1.4-6.5 10 3/uL Lymphocytes Absolute Auto 0.4 1.2-3.8 10 3/uL Monocytes Absolute Auto 0.1 0.3-0.8 10 3/uL Eosinophils Absolute Auto 0.0 0.0-0.7 10 3/uL Basophils Absolute Auto 0.0 0.0-0.1 10 3/uL Immature Granulocytes Abs Auto 0.02 0.00-0.03 10 3/uL Performing Lab: see note - [facility] LB Blood Culture 2 Reviewed date:04/25/2024 04:05:44 PM Interpretation: Performing Lab: Notes/Report: [facility] , Blood Culture 2 See Below For Report Blood Culture 2 NG5D NO GROWTH AT 5 DAYS. Performing Lab: see note - [facility] LB Blood Culture 1 Reviewed date:04/25/2024 04:05:44 PM Interpretation: Performing Lab: Notes/Report: LEFT ARM PICC LINE [facility] , Blood Culture 1 See Below For Report Blood Culture 1 NG5D NO GROWTH AT 5 DAYS. Performing Lab: see note - [facility] LB White Blood Cells Reviewed date:2024 06:43:23 PM Interpretation: Performing Lab: Notes/Report: [facility] , White Blood Cells See Below For Report White Blood Cells White Blood Cells Few White Blood Cells Performing Lab: see note LC - [facility] LB ECG 12 lead Reviewed date:04/21/2024 08:08:35 AM Interpretation: Performing Lab: Notes/Report: Source Facility: [facility] [address] [place] [address] Electrocardiograph Report Signed Patient: ISELA DE LA ROSA MR#: [id number] : 1955 Acct:[id number] Age/Sex: 68 / F ADM Date: 04/20/24 Loc: MS 203-[address]: Brenda Baker M.D. Ordering Physician: Brenda Baker M.D. 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 Signed By: <Electronically signed by Brenda Baker M.D.> 04/21/24 0704 DD/ 1013 TD/TT: Interchange Agent: [place] [address] Electrocardiograph Report Signed Patient: ARNALDO DE LA ROSA MR#: [id number] : 1955 Acct:[id number] Age/Sex: 68 / F ADM Date: 04/20/24 Loc: MS 203- Attending Dr: Preeti Baker M.D. Ordering Physician: Brenda Baker M.D. 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 Signed By: <Electronically signed by Brenda Baker M.D.> 04/21/24 0704 DD/ 1013 TD/TT: Interchange Agent: Urine Culture, Routine Reviewed date:04/23/2024 11:36:35 AM Interpretation: Performing Lab: Notes/Report: [facility] , Urine Culture, Routine See Below For Report Urine Culture, Routine Urine Culture, Routine Culture shows les s than 10,000 colony forming units of bacteria per Urine Culture, Routine Urine Culture, Routine milliliter of uri ne. This colony count is not generally considered Urine Culture, Routine Urine Culture, Routine to be clinically significant. Urine Culture, Routine Urine Culture, Routine Performed at: [facility] Urine Culture, Routine Urine Culture, Routine [address] [place] [id number] Urine Culture, Routine Urine Culture, Routine Pearl Fisherman: Brenton Hamilton PhD, Phone: [phone] Urine Culture, Routine Performing Lab: see note LC - [facility] LB SEE REPORT - Cd Technician Id information not found for OBX-specific broadcast producer legend Lower Respiratory Culture Reviewed date:04/29/2024 09:26:46 PM Interpretation: Performing Lab: Notes/Report: [facility] , Lower Respiratory Culture See Below For Report Lower Respiratory Culture WILL FOLLOW Lower Respiratory Culture Routine respiratory tana Lower Respiratory Culture WILL FOLLOW Lower Respiratory Culture Performed at: [facility] Lower Respiratory Culture WILL FOLLOW Lower Respiratory Culture [address] [place] [id number] Lower Respiratory Culture WILL FOLLOW Lower Respiratory Culture Pearl Fisherman: Anibal Hamilton PhD, Phone: [phone] Lower Respiratory Culture WILL FOLLOW Performing Lab: see note LC - [facility] LB SEE REPORT - Cd Technician Id information not found for OBX-specific broadcast producer legend Gram Stain Evaluation Reviewed date:04/29/2024 09:26:46 PM Interpretation: Performing Lab: Notes/Report: [facility] , Gram Stain Evaluation See Below For Report Gram Stain Evaluation This specimen is of good quality and is acceptable for routine Gram Stain Evaluation bacterial culture. 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 Performing Lab: see note LC - [facility] LB Result 2 Reviewed date:04/29/2024 09:26:46 PM Interpretation: Performing Lab: Notes/Report: [facility] , Result 2 See Below For Report Result 2 Few gram positive rods. Performing Lab: see note LC - [facility] LB Result 1 Reviewed date:04/29/2024 09:26:46 PM Interpretation: Performing Lab: Notes/Report: [facility] , Result 1 See Below For Report Result 1 Moderate number of gram positive cocci. Performing Lab: see note LC - [facility] LB Epithelial Cells Reviewed date:04/29/2024 09:26:46 PM Interpretation: Performing Lab: Notes/Report: [facility] , Epithelial Cells See Below For Report Epithelial Cells Few Performing Lab: see note LC - [facility] LB White Blood Cells Reviewed date:2024 06:43:24 PM Interpretation: Performing Lab: Notes/Report: [facility] , White Blood Cells See Below For Report White Blood Cells White Blood Cells Few White Blood Cells Performing Lab: see note LC - [facility] LB SARS-CoV-2 Ag* Reviewed date:04/20/2024 01:06:35 PM Interpretation: Performing Lab: Notes/Report: [facility] , SARS-CoV-2 Ag NEGATIVE NEGATIVE This test has not been FDA cleared or approved, but has been authorized by the FDA under an Emergency Use Authorization (EUA) for use by authorized laboratories certified under CLIA that meet the requirements to perform moderate or high complexity testing. This test has been authorized only for the detection of proteins from SARS-CoV-2, not for any other viruses or pathogens. The emergency use of this test is authorized for the duration of the declaration that circumstances exist justifying the authorization of emergency use of in vitro diagnostic tests for detection and/or diagnosis of Covid-19 under section 564(b)(1) of the Act, 21 U.S.C. 360bbb-3(b)(1), unless the declaration is terminated or authorization is revoked sooner. Performing Lab: see note ML - [facility] LB Blood Culture 2 Reviewed date:2024 06:43:23 PM Interpretation: Performing Lab: Notes/Report: [facility] , Blood Culture 2 See Below For Report Blood Culture 2 NG3D NO GROWTH AT 36-48 HOURS. FINAL TO FOLLOW. Performing Lab: see note ML - [facility] LB Blood Culture 1 Reviewed date:2024 06:43:23 PM Interpretation: Performing Lab: Notes/Report: LEFT ARM PICC LINE [facility] , Blood Culture 1 See Below For Report Blood Culture 1 NG3D NO GROWTH AT 36-48 HOURS. FINAL TO FOLLOW. Performing Lab: see note ML - [facility] LB PROF CHEM 8 (BAS METB) Reviewed date:04/20/2024 01:06:35 PM Interpretation: Performing Lab: Notes/Report: [facility] , Sodium 132 136-145 mmol/L Potassium 3.5 3.5-5.1 mmol/L Chloride 99 98-107 mmol/L Carbon Dioxide 30.1 21.0-32.0 mmol/L Anion Gap 6.4 Glucose 103 74-106 mg/dL Blood Urea Nitrogen 9.0 7.0-18.0 mg/dL Creatinine 0.68 0.55-1.02 mg/dL Estimated GFR ( Nya >60 >=60 Estimated GFR (Non- Cindy >60 >=60 BUN Creatinine Ratio 13.2 Calcium 8.3 8.5-10.1 mg/dL Performing Lab: see note ML - [facility] LB LIVER PROFILE Reviewed date:04/20/2024 03:35:00 PM Interpretation: Performing Lab: Notes/Report: [facility] , Bilirubin Total 0.2 0.2-1.0 mg/dL Bilirubin Direct 0.1 0.0-0.2 mg/dL Aspartate Amino Transferase 22 15-37 U/L Alanine Aminotransferase 23 14-59 U/L Alkaline Phosphatase 178 46-116 U/L Total Protein 6.8 6.4-8.2 g/dL Albumin Level 3.3 3.4-5.0 g/dL Globulin 3.5 Albumin Globulin Ratio 0.9 Performing Lab: see note ML - [facility] LB LIPASE Reviewed date:04/20/2024 03:35:00 PM Interpretation: Performing Lab: Notes/Report: [facility] , Lipase 40.0 16.0-77.0 U/L Performing Lab: see note ML - [facility] LB LACTATE or LACTIC ACID Reviewed date:04/20/2024 03:35:00 PM Interpretation: Performing Lab: Notes/Report: [facility] , Lactate/Lactic Acid 1.4 0.4-2.0 mmol/L Performing Lab: see note ML - [facility] LB CBC AUTO DIFF Reviewed date:04/20/2024 01:06:35 PM Interpretation: Performing Lab: Notes/Report: [facility] , White Blood Count 6.1 4.0-11.0 10 3/uL Red Blood Count 4.17 4.20-5.40 10 6/uL Hemoglobin 12.1 12.0-16.0 g/dL Hematocrit 36.7 36.0-48.0 % Mean Corpuscular Volume 88.0 81.0-99.0 fL Mean Corpuscular Hemoglobin 29.0 26.7-34.0 pg Mean Corpuscular HGB Conc 33.0 29.9-35.2 g/dL Red Cell Distribution Width 12.9 11.0-15.0 % Platelet Count 104 150-450 10 3/uL Mean Platelet Volume 12.5 9.5-13.5 fL Neutrophils Percent Auto 92.0 43.0-75.0 % Lymphocytes Percent Auto 4.9 20.5-60.0 % Monocytes Percent Auto 2.4 1.7-12.0 % Eosinophils Percent Auto 0.0 0.9-7.0 % Basophils Percent Auto 0.2 0.2-2.0 % Immature Granulocytes Pct Auto 0.5 0.0-0.5 % Neutrophils Absolute Auto 5.7 1.4-6.5 10 3/uL Lymphocytes Absolute Auto 0.3 1.2-3.8 10 3/uL Monocytes Absolute Auto 0.2 0.3-0.8 10 3/uL Eosinophils Absolute Auto 0.0 0.0-0.7 10 3/uL Basophils Absolute Auto 0.0 0.0-0.1 10 3/uL Immature Granulocytes Abs Auto 0.03 0.00-0.03 10 3/uL Performing Lab: see note ML - [facility] LB AMYLASE Reviewed date:04/20/2024 03:35:00 PM Interpretation: Performing Lab: Notes/Report: [facility] , Amylase 31 25-115 U/L Performing Lab: see note ML - [facility] LB TSH Reviewed date:04/20/2024 06:49:21 PM Interpretation: Performing Lab: Notes/Report: [facility] , Thyroid Stimulating Hormone 4.868 0.358-3.740 uIU/mL Performing Lab: see note ML - [facility] LB PROF 14(COMP METB) Reviewed date:04/20/2024 06:49:21 PM Interpretation: Performing Lab: Notes/Report: [facility] , Sodium 137 136-145 mmol/L Potassium 3.8 3.5-5.1 mmol/L Chloride 103 98-107 mmol/L Carbon Dioxide 24.9 21.0-32.0 mmol/L Anion Gap 12.9 Glucose 113 74-106 mg/dL Blood Urea Nitrogen 8.0 7.0-18.0 mg/dL Creatinine 0.67 0.55-1.02 mg/dL Estimated GFR ( Nya >60 >=60 Estimated GFR (Non- Cindy >60 >=60 BUN Creatinine Ratio 11.9 Calcium 9.1 8.5-10.1 mg/dL Bilirubin Total 0.3 0.2-1.0 mg/dL Aspartate Amino Transferase 16 15-37 U/L Alanine Aminotransferase 20 14-59 U/L Alkaline Phosphatase 191 46-116 U/L Total Protein 7.5 6.4-8.2 g/dL Albumin Level 3.6 3.4-5.0 g/dL Globulin 3.9 Albumin Globulin Ratio 0.9 Performing Lab: see note ML - [facility] LB MAGNESIUM Reviewed date:04/20/2024 06:49:21 PM Interpretation: Performing Lab: Notes/Report: [facility] , Magnesium 2.1 1.8-2.4 mg/dL Performing Lab: see note ML - [facility] LB CBC AUTO DIFF Reviewed date:04/20/2024 06:49:21 PM Interpretation: Performing Lab: Notes/Report: [facility] , White Blood Count 5.4 4.0-11.0 10 3/uL Red Blood Count 4.46 4.20-5.40 10 6/uL Hemoglobin 12.9 12.0-16.0 g/dL Hematocrit 39.2 36.0-48.0 % Mean Corpuscular Volume 87.9 81.0-99.0 fL Mean Corpuscular Hemoglobin 28.9 26.7-34.0 pg Mean Corpuscular HGB Conc 32.9 29.9-35.2 g/dL Red Cell Distribution Width 13.0 11.0-15.0 % Platelet Count 193 150-450 10 3/uL Mean Platelet Volume 11.7 9.5-13.5 fL Neutrophils Percent Auto 63.9 43.0-75.0 % Lymphocytes Percent Auto 23.0 20.5-60.0 % Monocytes Percent Auto 10.8 1.7-12.0 % Eosinophils Percent Auto 1.5 0.9-7.0 % Basophils Percent Auto 0.6 0.2-2.0 % Immature Granulocytes Pct Auto 0.2 0.0-0.5 % Neutrophils Absolute Auto 3.5 1.4-6.5 10 3/uL Lymphocytes Absolute Auto 1.3 1.2-3.8 10 3/uL Monocytes Absolute Auto 0.6 0.3-0.8 10 3/uL Eosinophils Absolute Auto 0.1 0.0-0.7 10 3/uL Basophils Absolute Auto 0.0 0.0-0.1 10 3/uL Immature Granulocytes Abs Auto 0.01 0.00-0.03 10 3/uL Performing Lab: see note - [facility] LB MAGNESIUM Reviewed date:04/20/2024 06:49:21 PM Interpretation: Performing Lab: Notes/Report: [facility] , Magnesium 1.9 1.8-2.4 mg/dL Performing Lab: see note [facility] LB Hep B Core Ab, Tot Reviewed date:04/20/2024 06:49:21 PM Interpretation: Performing Lab: Notes/Report: [facility] , Hep B Core Ab, Tot Negative Negative Performed at: [address] [id number] Pearl Fisherman: Anibal Hamilton PhD, Phone: [phone] Performing Lab: see note [facility] LB Hepatitis B Surf Ab Quant Reviewed date:04/20/2024 06:49:21 PM Interpretation: Performing Lab: Notes/Report: [facility] , Hepatitis B Surf Ab Quant <3.5 Immuni ty>10 mIU/mL Status of Immunity Anti-HBs Level Inconsistent with Immunity 0.0 - 10.0 Consistent with Immunity >10.0 Performing Lab: see note LC - [facility] LB HBsAg Screen Reviewed date:04/20/2024 06:49:21 PM Interpretation: Performing Lab: Notes/Report: [facility] , HBsAg Screen Negative Negative Performing Lab: see note LC - [facility] LB CBC AUTO DIFF Reviewed date:04/20/2024 06:49:21 PM Interpretation: Performing Lab: Notes/Report: [facility] , White Blood Count 7.6 4.0-11.0 10 3/uL Red Blood Count 4.90 4.20-5.40 10 6/uL Hemoglobin 14.0 12.0-16.0 g/dL Hematocrit 43.2 36.0-48.0 % Mean Corpuscular Volume 88.2 81.0-99.0 fL Mean Corpuscular Hemoglobin 28.6 26.7-34.0 pg Mean Corpuscular HGB Conc 32.4 29.9-35.2 g/dL Red Cell Distribution Width 12.9 11.0-15.0 % Platelet Count 261 150-450 10 3/uL Mean Platelet Volume 10.6 9.5-13.5 fL Neutrophils Percent Auto 70.3 43.0-75.0 % Lymphocytes Percent Auto 18.4 20.5-60.0 % Monocytes Percent Auto 10.1 1.7-12.0 % Eosinophils Percent Auto 0.7 0.9-7.0 % Basophils Percent Auto 0.1 0.2-2.0 % Immature Granulocytes Pct Auto 0.4 0.0-0.5 % Neutrophils Absolute Auto 5.3 1.4-6.5 10 3/uL Lymphocytes Absolute Auto 1.4 1.2-3.8 10 3/uL Monocytes Absolute Auto 0.8 0.3-0.8 10 3/uL Eosinophils Absolute Auto 0.1 0.0-0.7 10 3/uL Basophils Absolute Auto 0.0 0.0-0.1 10 3/uL Immature Granulocytes Abs Auto 0.03 0.00-0.03 10 3/uL Performing Lab: see note - [facility] LB CBC AUTO DIFF (Not yet revie wed by provider) Interpretation: Performing Lab: Notes/Report: [facility] , White Blood Count 5.5 4.0-11.0 10 3/uL Red Blood Count 3.14 4.20-5.40 10 6/uL Hemoglobin 9.9 12.0-16.0 g/dL Hematocrit 30.9 36.0-48.0 % Mean Corpuscular Volume 98.4 81.0-99.0 fL Mean Corpuscular Hemoglobin 31.5 26.7-34.0 pg Mean Corpuscular HGB Conc 32.0 29.9-35.2 g/dL Red Cell Distribution Width 15.2 11.0-15.0 % Platelet Count 214 150-450 10 3/uL Mean Platelet Volume 11.0 9.5-13.5 fL Neutrophils Percent Auto 60.0 43.0-75.0 % Lymphocytes Percent Auto 13.2 20.5-60.0 % Monocytes Percent Auto 19.7 1.7-12.0 % Eosinophils Percent Auto 6.0 0.9-7.0 % Basophils Percent Auto 0.4 0.2-2.0 % Immature Granulocytes Pct Auto 0.7 0.0-0.5 % Neutrophils Absolute Auto 3.3 1.4-6.5 10 3/uL Lymphocytes Absolute Auto 0.7 1.2-3.8 10 3/uL Monocytes Absolute Auto 1.1 0.3-0.8 10 3/uL Eosinophils Absolute Auto 0.3 0.0-0.7 10 3/uL Basophils Absolute Auto 0.0 0.0-0.1 10 3/uL Immature Granulocytes Abs Auto 0.04 0.00-0.03 10 3/uL Performing Lab: see note ML - [facility] Surgical Pathology ([facility]) (Not yet reviewed by provider) Interpretation: Performing Lab:[facility] Path LABS ([facility]), [address] [place] [address], [address], [place]. [facility] PH:[phone] Notes/Report: [facility] [address] [place] [address] Surgical Pathology Consultation ADDENDUM IN Patient Name:PAT DE LA ROSAB:1955 (Age: 69)Gender:FTaken:08/26Reported:2024Physician(s):Rajat Chester ([phone])Copy To:Peterson Penny M.D. Rec. #:[id number]: #[id number] Final Pathologic Diagnosis Kidney, needle biopsy: Mild [...] comment is from Julieta Sanford M.D., Ph.D., [facility], [place], [place]. Please see the complete report in the patient's EMR. Report Electronically Signed Out [facility]/09/19/2024ndadina Foley MD Addendum ([facility]) Date Reported: 09/20/2024 Results of electron microscopy are received from Julieta Sanford M.D., Ph.D., [facility], [place], [place] and are as follows: Impression: Kidney, needle biopsy: Mild acute tubular injury with mild interstitial nephritis. Please see the complete report from [facility] in the patient's EMR. Electronically Signed Out Cipriano Foley MD Interpretation [place] [address], License number: [id number]. Clinical History LEIDA (acute kidney injury). Gross Description Received fresh in CT from a [place] right kidney are 4 meeks core biopsies ranging in size from 0.5 cm to 0.9 cm in length. The tissue is divided into 10% formalin and Julio César's media. The specimens are sent to [facility] for processing. (GROSS ONLY) med/5AO Intraoperative Consultation Rapid onsite evaluation: Adequate glomeruli, over 4 cores. - AO Interpretation provided at [facility], [address] [place] [address] Specimen(s) Received Right [place] kidney biopsy Fee Codes(s): 1; 20216, 23413 The copy-to physician of this order is PETERSON Granda Pheresis Platelets (Not yet reviewed by provider) Interpretation: Performing Lab: Notes/Report: Pheresis Platelets [id number] AP PHPLT TRANSFUSED 09/12/24 1513 Type and Screen (Not yet rev iewed by provider) Interpretation: Performing Lab: Notes/Report: [facility] , Blood Type A Positive Antibody Screen NEGATIVE Second ABO/RH Type (Not yet reviewed by provider) Interpretation: Performing Lab: Notes/Report: [facility] , Blood Type #2 A Positive FREE T4 (Not yet reviewed by provider) Interpretation: Performing Lab: Notes/Report: [facility] , Free T4 1.24 0.76-1.46 ng/dL Performing Lab: see note ML - [facility] LB MAGNESIUM (Not yet reviewed by provider) Interpretation: Performing Lab: Notes/Report: [facility] , Magnesium 1.9 1.8-2.4 mg/dL Performing Lab: see note ML - [facility] LB Blood Culture 1 (Not yet rev iewed by provider) Interpretation: Performing Lab: Notes/Report: [place] DRAW [facility] , Blood Culture 1 See Below For Report Blood Culture 1 NG5D NO GROWTH AT 5 DAYS.^NO GROWTH AT 5 DAYS. Performing Lab: see note ML - [facility] LB CBC AUTO DIFF (Not yet revie wed by provider) Interpretation: Performing Lab: Notes/Report: [facility] , White Blood Count 6.8 4.0-11.0 10 3/uL Red Blood Count 3.41 4.20-5.40 10 6/uL Hemoglobin 10.6 12.0-16.0 g/dL Hematocrit 33.4 36.0-48.0 % Mean Corpuscular Volume 97.9 81.0-99.0 fL Mean Corpuscular Hemoglobin 31.1 26.7-34.0 pg Mean Corpuscular HGB Conc 31.7 29.9-35.2 g/dL Red Cell Distribution Width 15.0 11.0-15.0 % Platelet Count 203 150-450 10 3/uL Mean Platelet Volume 13.1 9.5-13.5 fL Neutrophils Percent Auto 56.0 43.0-75.0 % Lymphocytes Percent Auto 24.0 20.5-60.0 % Monocytes Percent Auto 18.7 1.7-12.0 % Eosinophils Percent Auto 0.6 0.9-7.0 % Basophils Percent Auto 0.3 0.2-2.0 % Immature Granulocytes Pct Auto 0.4 0.0-0.5 % Neutrophils Absolute Auto 3.8 1.4-6.5 10 3/uL Lymphocytes Absolute Auto 1.6 1.2-3.8 10 3/uL Monocytes Absolute Auto 1.3 0.3-0.8 10 3/uL Eosinophils Absolute Auto 0.0 0.0-0.7 10 3/uL Basophils Absolute Auto 0.0 0.0-0.1 10 3/uL Immature Granulocytes Abs Auto 0.03 0.00-0.03 10 3/uL Performing Lab: see note ML - [facility] LB MAGNESIUM (Not yet reviewed by provider) Interpretation: Performing Lab: Notes/Report: [facility] , Magnesium 1.9 1.8-2.4 mg/dL Performing Lab: see note - [facility] LB PROF 14(COMP METB) (Not yet reviewed by provider) Interpretation: Performing Lab: Notes/Report: [facility] , Sodium 138 136-145 mmol/L Potassium 3.9 3.5-5.1 mmol/L Chloride 103 98-107 mmol/L Carbon Dioxide 28.4 21.0-32.0 mmol/L Anion Gap 10.5 Glucose 117 74-106 mg/dL Blood Urea Nitrogen 25.0 7.0-18.0 mg/dL Creatinine 1.62 0.55-1.02 mg/dL Estimated GFR ( Nya 38 >=60 mL/min/1.73m 2 Estimated GFR (Non- Cindy 32 >=60 mL/min/1.73m 2 BUN Creatinine Ratio 15.4 Calcium 9.3 8.5-10.1 mg/dL Bilirubin Total 0.2 0.2-1.0 mg/dL Aspartate Amino Transferase 20 15-37 U/L Alanine Aminotransferase 32 14-59 U/L Alkaline Phosphatase 86 46-116 U/L Total Protein 7.9 6.4-8.2 g/dL Albumin Level 3.6 3.4-5.0 g/dL Globulin 4.3 Albumin Globulin Ratio 0.8 Performing Lab: see note ML - [facility] LB CBC AUTO DIFF (Not yet revie wed by provider) Interpretation: Performing Lab: Notes/Report: [facility] , White Blood Count 2.3 4.0-11.0 10 3/uL Red Blood Count 2.90 4.20-5.40 10 6/uL Hemoglobin 8.9 12.0-16.0 g/dL Hematocrit 27.3 36.0-48.0 % Mean Corpuscular Volume 94.1 81.0-99.0 fL Mean Corpuscular Hemoglobin 30.7 26.7-34.0 pg Mean Corpuscular HGB Conc 32.6 29.9-35.2 g/dL Red Cell Distribution Width 13.8 11.0-15.0 % Platelet Count 59 150-450 10 3/uL Platelet count may be falsely decreased due to slight platelet clumping. Mean Platelet Volume 12.2 9.5-13.5 fL Performing Lab: see note ML - [facility] LB PROF 14(COMP METB) (Not yet reviewed by provider) Interpretation: Performing Lab: Notes/Report: [facility] , Sodium 139 136-145 mmol/L Potassium 3.9 3.5-5.1 mmol/L Chloride 105 98-107 mmol/L Carbon Dioxide 25.5 21.0-32.0 mmol/L Anion Gap 12.4 Glucose 103 74-106 mg/dL Blood Urea Nitrogen 18.0 7.0-18.0 mg/dL Creatinine 1.79 0.55-1.02 mg/dL Estimated GFR ( Nya 34 >=60 mL/min/1.73m 2 Estimated GFR (Non- Cindy 28 >=60 mL/min/1.73m 2 BUN Creatinine Ratio 10.1 Calcium 8.5 8.5-10.1 mg/dL Bilirubin Total 0.2 0.2-1.0 mg/dL Aspartate Amino Transferase 31 15-37 U/L Alanine Aminotransferase 27 14-59 U/L Alkaline Phosphatase 87 46-116 U/L Total Protein 7.4 6.4-8.2 g/dL Albumin Level 3.5 3.4-5.0 g/dL Globulin 3.9 Albumin Globulin Ratio 0.9 Performing Lab: see note ML - [facility] LB CBC AUTO DIFF (Not yet revie wed by provider) Interpretation: Performing Lab: Notes/Report: [facility] , White Blood Count 5.3 4.0-11.0 10 3/uL Red Blood Count 3.09 4.20-5.40 10 6/uL Hemoglobin 9.6 12.0-16.0 g/dL Hematocrit 29.9 36.0-48.0 % Mean Corpuscular Volume 96.8 81.0-99.0 fL Mean Corpuscular Hemoglobin 31.1 26.7-34.0 pg Mean Corpuscular HGB Conc 32.1 29.9-35.2 g/dL Red Cell Distribution Width 15.9 11.0-15.0 % Platelet Count 197 150-450 10 3/uL Mean Platelet Volume 12.5 9.5-13.5 fL Neutrophils Percent Auto 57.5 43.0-75.0 % Lymphocytes Percent Auto 17.2 20.5-60.0 % Monocytes Percent Auto 21.5 1.7-12.0 % Eosinophils Percent Auto 1.7 0.9-7.0 % Basophils Percent Auto 0.2 0.2-2.0 % Immature Granulocytes Pct Auto 1.9 0.0-0.5 % Neutrophils Absolute Auto 3.1 1.4-6.5 10 3/uL Lymphocytes Absolute Auto 0.9 1.2-3.8 10 3/uL Monocytes Absolute Auto 1.1 0.3-0.8 10 3/uL Eosinophils Absolute Auto 0.1 0.0-0.7 10 3/uL Basophils Absolute Auto 0.0 0.0-0.1 10 3/uL Immature Granulocytes Abs Auto 0.10 0.00-0.03 10 3/uL Performing Lab: see note ML - [facility] LB MAGNESIUM (Not yet reviewed by provider) Interpretation: Performing Lab: Notes/Report: [facility] , Magnesium 1.8 1.8-2.4 mg/dL Performing Lab: see note ML - [facility] LB PROF 14(COMP METB) (Not yet reviewed by provider) Interpretation: Performing Lab: Notes/Report: [facility] , Sodium 144 136-145 mmol/L Potassium 3.7 3.5-5.1 mmol/L Chloride 105 98-107 mmol/L Carbon Dioxide 27.4 21.0-32.0 mmol/L Anion Gap 15.3 Glucose 112 74-106 mg/dL Blood Urea Nitrogen 23.0 7.0-18.0 mg/dL Creatinine 2.09 0.55-1.02 mg/dL Estimated GFR ( Nya 29 >=60 mL/min/1.73m 2 Estimated GFR (Non- Cindy 24 >=60 mL/min/1.73m 2 BUN Creatinine Ratio 11.0 Calcium 8.9 8.5-10.1 mg/dL Bilirubin Total 0.2 0.2-1.0 mg/dL Aspartate Amino Transferase 27 15-37 U/L Alanine Aminotransferase 32 14-59 U/L Alkaline Phosphatase 87 46-116 U/L Total Protein 7.3 6.4-8.2 g/dL Albumin Level 3.6 3.4-5.0 g/dL Globulin 3.7 Albumin Globulin Ratio 1.0 Performing Lab: see note ML - [facility] LB TSH W/ REFLEX FT4 (Not yet r eviewed by provider) Interpretation: Performing Lab: Notes/Report: [facility] , TSH W/ REFLEX FT4 3.447 0.358-3.740 uIU/mL Performing Lab: see note ML - [facility] LB CBC AUTO DIFF (Not yet revie wed by provider) Interpretation: Performing Lab: Notes/Report: [facility] , White Blood Count 7.8 4.0-11.0 10 3/uL Red Blood Count 3.35 4.20-5.40 10 6/uL Hemoglobin 10.4 12.0-16.0 g/dL Hematocrit 32.4 36.0-48.0 % Mean Corpuscular Volume 96.7 81.0-99.0 fL Mean Corpuscular Hemoglobin 31.0 26.7-34.0 pg Mean Corpuscular HGB Conc 32.1 29.9-35.2 g/dL Red Cell Distribution Width 17.3 11.0-15.0 % Platelet Count 230 150-450 10 3/uL Mean Platelet Volume 11.2 9.5-13.5 fL Neutrophils Percent Auto 64.1 43.0-75.0 % Lymphocytes Percent Auto 17.1 20.5-60.0 % Monocytes Percent Auto 17.7 1.7-12.0 % Eosinophils Percent Auto 0.3 0.9-7.0 % Basophils Percent Auto 0.0 0.2-2.0 % Immature Granulocytes Pct Auto 0.8 0.0-0.5 % Neutrophils Absolute Auto 5.0 1.4-6.5 10 3/uL Lymphocytes Absolute Auto 1.3 1.2-3.8 10 3/uL Monocytes Absolute Auto 1.4 0.3-0.8 10 3/uL Eosinophils Absolute Auto 0.0 0.0-0.7 10 3/uL Basophils Absolute Auto 0.0 0.0-0.1 10 3/uL Immature Granulocytes Abs Auto 0.06 0.00-0.03 10 3/uL Performing Lab: see note ML - [facility] LB CBC AUTO DIFF (Not yet revie wed by provider) Interpretation: Performing Lab: Notes/Report: [facility] , White Blood Count 9.0 4.0-11.0 10 3/uL Red Blood Count 3.59 4.20-5.40 10 6/uL Hemoglobin 11.2 12.0-16.0 g/dL Hematocrit 34.7 36.0-48.0 % Mean Corpuscular Volume 96.7 81.0-99.0 fL Mean Corpuscular Hemoglobin 31.2 26.7-34.0 pg Mean Corpuscular HGB Conc 32.3 29.9-35.2 g/dL Red Cell Distribution Width 16.6 11.0-15.0 % Platelet Count 158 150-450 10 3/uL Mean Platelet Volume 12.3 9.5-13.5 fL Neutrophils Percent Auto 74.6 43.0-75.0 % Lymphocytes Percent Auto 9.9 20.5-60.0 % Monocytes Percent Auto 14.4 1.7-12.0 % Eosinophils Percent Auto 0.4 0.9-7.0 % Basophils Percent Auto 0.3 0.2-2.0 % Immature Granulocytes Pct Auto 0.4 0.0-0.5 % Neutrophils Absolute Auto 6.7 1.4-6.5 10 3/uL Lymphocytes Absolute Auto 0.9 1.2-3.8 10 3/uL Monocytes Absolute Auto 1.3 0.3-0.8 10 3/uL Eosinophils Absolute Auto 0.0 0.0-0.7 10 3/uL Basophils Absolute Auto 0.0 0.0-0.1 10 3/uL Immature Granulocytes Abs Auto 0.04 0.00-0.03 10 3/uL Performing Lab: see note - [facility] LB PROF 14(COMP METB) (Not yet reviewed by provider) Interpretation: Performing Lab: Notes/Report: [facility] , Sodium 137 136-145 mmol/L Potassium 3.8 3.5-5.1 mmol/L Chloride 104 98-107 mmol/L Carbon Dioxide 26.6 21.0-32.0 mmol/L Anion Gap 10.2 Glucose 123 74-106 mg/dL Blood Urea Nitrogen 26.0 7.0-18.0 mg/dL Creatinine 1.86 0.55-1.02 mg/dL Estimated GFR ( Nya 33 >=60 mL/min/1.73m 2 Estimated GFR (Non- Cindy 27 >=60 mL/min/1.73m 2 BUN Creatinine Ratio 14.0 Calcium 8.7 8.5-10.1 mg/dL Bilirubin Total 0.3 0.2-1.0 mg/dL Aspartate Amino Transferase 17 15-37 U/L Alanine Aminotransferase 20 14-59 U/L Alkaline Phosphatase 81 46-116 U/L Total Protein 7.5 6.4-8.2 g/dL Albumin Level 3.8 3.4-5.0 g/dL Globulin 3.7 Albumin Globulin Ratio 1.0 Performing Lab: see note ML - [facility] LB PET skull to mid thigh (Not yet reviewed by provider) Interpretation: Performing Lab: Notes/Report: Source Facility: [facility]-[address] [place] [address] [place] [address] PET Report Signed Patient: ISELA DE LA ROSA MR#: [id number] : 1955 Acct:[id number] Age/Sex: 69 / F ADM Date: 11/13/24 Loc: PETCT Attending Dr: Kristi Chester M.D. Ordering Physician: Kristi Chester M.D. Date of Service: 11/13/24 Procedure(s): PET skull to mid thigh Accession Number(s): [id number] cc: Kristi Chester M.D.; Brenda Baker M.D. [place] [address] Patient Name: ISELA DE LA ROSA MRN: [facility]:[id number] date: 1955 Sex: F Assigned Patient Location: PETCT Current Patient Location: [facility] Accession/Order Number: [id number] Exam Date: 11/14/2024 23:26 Report Date: 11/15/2024 00:20 At the request of: KRISTI CHESTER MD Procedure: PET skull to mid thigh PET/CT WITH FUSION CLINICAL DATA: Restaging lung cancer COMPARISON: 07/10/2024 Following the intravenous administration of 13.36 mCi of FDG, SPECT imaging in 3 planes was performed from the level the orbits through the groin. Patient's blood glucose level at the time of injection was 97 mg/dL. Spiral unenhanced CT was also performed for anatomic localization. The PET and CT images were fused. This CT exam was performed using one or more following dose reduction techniques: Automated exposure control, adjustment of the mA and/or kV according to patient size, or use of iterative reconstruction technique. NECK: No pathologically enlarged or hypermetabolic lymph nodes are seen. There is continued diffuse bilateral thyroid uptake, similar to the comparison. CHEST: There is opacity at the right upper lung which is unchanged on the CT studies. FDG uptake at that site has decreased from SUV of 4.5 down to 3.4. There are no developing areas of abnormal hypermetabolism involving the lungs. There is still a right hilar lymph node with increased FDG uptake and SUV of 6.9. Uptake was previously 6.0 at this site. No other hypermetabolic adenopathy is seen. ABDOMEN/PELVIS: There is no abnormal hypermetabolism associated with the liver or adrenal glands. No enlarged or hypermetabolic abdominal or pelvic lymph nodes are seen. There is physiologic activity involving the urinary tract. SKELETAL: Multiple sclerotic bone lesions are again seen on CT exam. Most are no longer hypermetabolic. There is still increased FDG uptake at the left iliac bone with decrease in SUV from 12 to 5.5. There is borderline residual increased FDG uptake associated with the anterolateral left second rib with SUV of 2.7, previously 8.5. There is a focus of increased uptake at the central maxilla with SUV of 5.2 which is minimally more prominent. PET/PET skull to mid thigh IMPRESSION: RIGHT UPPER LOBE OPACITY WITH CONTINUED DECREASE IN FDG UPTAKE. PERSISTENT FDG AVID RIGHT HILAR LYMPH NODE. OVERALL IMPROVEMENT OF HYPERMETABOLISM ASSOCIATED WITH BONE LESIONS. SIMILAR DIFFUSE THYROID FDG UPTAKE. Impression dictated by: Yasmin Maier M.D.11/15/2024 12:20 AM Dictation Location: [place] [address] Electronically authenticated by: [id number] Y Date: 11/15/2024 00:20 Dictated By: Yasmin Maier M.D. Signed By: 11/15/2422 DD/ TD/TT: Interchange Agent: [place] [address] PET Report Signed Patient: ARNALDO DE LA ROSA MR#: [id number] : 1955 Acct:[id number] Age/Sex: 69 / F ADM Date: 11/13/24 Loc: PETCT Attending Dr: Manas Chester M.D. Ordering Physician: Kristi Chester M.D. Date of Service: 11/13/24 Procedure(s): PET sk ull to mid thigh Accession Number(s): [id number] cc: Kristi Chester; Brenda Baker M.D. [place] [id number] Patient Name: ISELA DE LA ROSA MRN: [id number] date: 1955 Sex: F Assigned Patient Location: PETCT Current Patient Loca tion: [facility] Accession/Order Numb er: [id number] Exam Date: 11/14/2024 23:26 Report Date: 11/15/2024 00:20 At the request of: KRISTI CHESTER MD Procedure: PET skull to mid thigh PET/CT WITH FUSION CLINICAL DATA: Resta ging lung cancer COMPARISON: 07/10/2024 Following the intrav enous administration of 13.36 mCi of FDG, SPECT imaging in 3 planes was perform ed from the level the orbits through the groin. Patient's blood glucose level at the time of injection was 97 mg/dL. Spiral unenhanced CT was also performe d for anatomic localization. The PET and CT images were fused. This CT exam was performed using one or more following dose reduction techniques: Automate d exposure control, adjustment of the mA and/or kV according to patient size, or use of iterative reconstruction technique. NECK: No pathologica lly enlarged or hypermetabolic lymph nodes are seen. There is continued diffuse bilateral thyroid uptake, similar to the comparison. CHEST: There is opac ity at the right upper lung which is unchanged on the CT studies. FDG uptake at that site has decreased from SUV of 4.5 down to 3.4. There are no develop ing areas of abnormal hypermetabolism involving the lungs. There is still a rig ht hilar lymph node with increased FDG uptake and SUV of 6.9. Uptake was previously 6.0 at this site. No other hypermetabolic adenopathy is seen. ABDOMEN/PELVIS: Ther e is no abnormal hypermetabolism associated with the liver or adrenal glands. N o enlarged or hypermetabolic abdominal or pelvic lymph nodes are seen. Ther e is physiologic activity involving the urinary tract. SKELETAL: Multiple sclerotic bone lesions are again seen on CT exam. Most are no longer hypermetab olic. There is still increased FDG uptake at the left iliac bone with decr ease in SUV from 12 to 5.5. There is borderline residual increased FDG uptake associated with the anterolateral left second rib with SUV of 2.7, previous ly 8.5. There is a focus of increased uptake at the central maxilla with SUV of 5.2 which is minimally more prominent. PET/PET skull to mid thigh IMPRESSION: RIGHT UPPER LOBE [place] WITH CONTINUED DECREASE IN FDG UPTAKE. PERSISTENT FDG AVID RIGHT HILAR LYMPH NODE. OVERALL IMPROVEMENT OF HYPERMETABOLISM ASSOCIATED WITH BONE LESIONS. SIMILAR DIFFUSE THYR OID FDG UPTAKE. Impression dictated by: Yasmin Maier M.D.11/15/2024 12:20 AM Dictation Location: [place] [address] Electronically authenticated by: [id number] Y Date: 11/15/2024 00:20 Dictated By: Yasmin Maier M.D. Signed By: 11/15/24 0023 DD/ 002 TD/TT: Interchange Agent: FERRITIN (Not yet reviewed b y provider) Interpretation: Performing Lab: Notes/Report: [facility] , Ferritin 794.0 8.0-252.0 ng/mL Performing Lab: see note ML - [facility] LB MAGNESIUM (Not yet reviewed by provider) Interpretation: Performing Lab: Notes/Report: [facility] , Magnesium 1.7 1.8-2.4 mg/dL Performing Lab: see note ML - [facility] LB PROF 14(COMP METB) (Not yet reviewed by provider) Interpretation: Performing Lab: Notes/Report: [facility] , Sodium 140 136-145 mmol/L Potassium 3.9 3.5-5.1 mmol/L Chloride 103 98-107 mmol/L Carbon Dioxide 24.9 21.0-32.0 mmol/L Anion Gap 16.0 Glucose 153 74-106 mg/dL Blood Urea Nitrogen 32.0 7.0-18.0 mg/dL Creatinine 1.98 0.55-1.02 mg/dL Estimated GFR ( Nya 30 >=60 mL/min/1.73m 2 Estimated GFR (Non- Cindy 25 >=60 mL/min/1.73m 2 BUN Creatinine Ratio 16.2 Calcium 9.4 8.5-10.1 mg/dL Bilirubin Total 0.2 0.2-1.0 mg/dL Aspartate Amino Transferase 22 15-37 U/L Alanine Aminotransferase 18 14-59 U/L Alkaline Phosphatase 78 46-116 U/L Total Protein 7.5 6.4-8.2 g/dL Albumin Level 3.7 3.4-5.0 g/dL Globulin 3.8 Albumin Globulin Ratio 1.0 Performing Lab: see note ML - [facility] LB PROF 14(COMP METB) (Not yet reviewed by provider) Interpretation: Performing Lab: Notes/Report: [facility] , Sodium 140 136-145 mmol/L Potassium 3.6 3.5-5.1 mmol/L Chloride 104 98-107 mmol/L Carbon Dioxide 24.7 21.0-32.0 mmol/L Anion Gap 14.9 Glucose 98 74-106 mg/dL Blood Urea Nitrogen 16.0 7.0-18.0 mg/dL Creatinine 1.78 0.55-1.02 mg/dL Estimated GFR ( Nya 34 >=60 mL/min/1.73m 2 Estimated GFR (Non- Cindy 28 >=60 mL/min/1.73m 2 BUN Creatinine Ratio 9.0 Calcium 8.6 8.5-10.1 mg/dL Bilirubin Total 0.3 0.2-1.0 mg/dL Aspartate Amino Transferase 21 15-37 U/L Alanine Aminotransferase 18 14-59 U/L Alkaline Phosphatase 90 46-116 U/L Total Protein 7.7 6.4-8.2 g/dL Albumin Level 3.6 3.4-5.0 g/dL Globulin 4.1 Albumin Globulin Ratio 0.9 Performing Lab: see note ML - [facility] LB CBC AUTO DIFF (Not yet revie wed by provider) Interpretation: Performing Lab: Notes/Report: [facility] , White Blood Count 6.7 4.0-11.0 10 3/uL Red Blood Count 3.20 4.20-5.40 10 6/uL Hemoglobin 9.8 12.0-16.0 g/dL Hematocrit 30.1 36.0-48.0 % Mean Corpuscular Volume 94.1 81.0-99.0 fL Mean Corpuscular Hemoglobin 30.6 26.7-34.0 pg Mean Corpuscular HGB Conc 32.6 29.9-35.2 g/dL Red Cell Distribution Width 13.6 11.0-15.0 % Platelet Count 131 150-450 10 3/uL Mean Platelet Volume 13.2 9.5-13.5 fL Neutrophils Percent Auto 69.7 43.0-75.0 % Lymphocytes Percent Auto 14.6 20.5-60.0 % Monocytes Percent Auto 13.9 1.7-12.0 % Eosinophils Percent Auto 0.9 0.9-7.0 % Basophils Percent Auto 0.3 0.2-2.0 % Immature Granulocytes Pct Auto 0.6 0.0-0.5 % Neutrophils Absolute Auto 4.7 1.4-6.5 10 3/uL Lymphocytes Absolute Auto 1.0 1.2-3.8 10 3/uL Monocytes Absolute Auto 0.9 0.3-0.8 10 3/uL Eosinophils Absolute Auto 0.1 0.0-0.7 10 3/uL Basophils Absolute Auto 0.0 0.0-0.1 10 3/uL Immature Granulocytes Abs Auto 0.04 0.00-0.03 10 3/uL Performing Lab: see note ML - [facility] LB FERRITIN (Not yet reviewed b y provider) Interpretation: Performing Lab: Notes/Report: [facility] , Ferritin 613.0 8.0-252.0 ng/mL Performing Lab: see note - [facility] LB IRON AND TIBC (Not yet revie wed by provider) Interpretation: Performing Lab: Notes/Report: [facility] , Iron 31.0 50.0-170.0 ug/dL Total Iron Binding Capacity 224.0 250.0-450.0 ug/dL Percent Iron Saturation 13.8 Performing Lab: see note - [facility] LB CBC AUTO DIFF (Not yet revie wed by provider) Interpretation: Performing Lab: Notes/Report: [facility] , White Blood Count 5.3 4.0-11.0 10 3/uL Red Blood Count 3.10 4.20-5.40 10 6/uL Hemoglobin 9.6 12.0-16.0 g/dL Hematocrit 29.0 36.0-48.0 % Mean Corpuscular Volume 93.5 81.0-99.0 fL Mean Corpuscular Hemoglobin 31.0 26.7-34.0 pg Mean Corpuscular HGB Conc 33.1 29.9-35.2 g/dL Red Cell Distribution Width 13.9 11.0-15.0 % Platelet Count 171 150-450 10 3/uL Mean Platelet Volume 12.7 9.5-13.5 fL Performing Lab: see note - [facility] LB Reason For Referral Reason Right upper lobe sarah g adenocarcinoma. PET scheduled for 03/06/2024. Diagnosis 1 Primary adenocarcino ma of upper lobe of right lung (C34.11) Diagnosis 2 Hilar lymphadenopath y (R59.0) Referral Organization [facility] Referring Provider First Name Michelle Referring Provider Last Name Chu Referring Provider Speciality Pulmonolog y Referred Provider Andreas Pascual Referred Provider Specialty Hematology/O ncology General Notes Naga Jacobs 02/28 05:40:12 PM >I called and spoke with Moraima in Radiology at [facility]. Images pushed via PACS to [facility]. Referral faxed successfully to [facility]. Patient was advised and given a referral sheet while in the office today., Naga Jacobs 03/01/2024 10:51:39 AM >I called and spoke with Ellen at [facility] to confirm the referral was received. Per Ellen the referral was received, and the patient will be contacted., Naga Jacobs 03/02/2024 01:01:29 PM >I called and spoke with Paris at [facility] to find out when the patient is scheduled to see ? Paris states the patient has been contacted & scheduled for 03/16/2024 @ 1630., Naga Jacobs 03/13/2024 09:35:14 AM >Patient called and states she would like to have her referral switched to in [facility]. I advised the patient to call [facility] and cancel her appt. as she is scheduled with them on 03/16/2024. Patient verbalized understanding and referral faxed to ., Naga Jacobs 03/22/2024 11:58:03 AM >Consult Note received via fax from . Scanned to . Clinical Notes Naga Jacobs 02/28 05:37:41 PM >*PET Scan is scheduled at [facility] on 03/06/2024., *Prior Images pushed via PACS from [facility] to [facility]. Referral Priority Routine Referral Appointment Date 03/16/2024 Medications Medication SIG (Take, Route, Frequency, Duration) Notes Start Date End Date Status Magnesium 400 MG 1 tablet with a meal Orally BID for 90 days 08/02/2024 Active fentaNYL 25 MCG/HR APPLY 1 PATCH TO SKI N EVERY 72 HRS FOR PAIN Transdermal for 30 Days Active CeleXA 10 MG 1 tablet Orally Once a day for 30 days 11/23/2024 Active Potassium Chloride 20 MEQ 1 packet with food Orally Once a day for 30 day(s) 08/02/2024 Active Synthroid 75 MCG 1 tablet in the morn ing on an empty stomach Orally Once a day for 90 days 08/03/2024 Active Metoprolol Tartrate 100 MG 1 tablet with food Orally Twice a day for 30 days 08/02/2024 Active Ondansetron 4 MG 1 tablet on the tong ue and allow to dissolve Orally Once a day for 30 day(s) 08/02/2024 Active Immunizations Vaccine Route Administration Date Status Comme nts SARS-COV-2 (COVID 19 Pfizer 30mcg/0.3mL) Unknown 09/18/2020 Administered Social History Tobacco Use: Social History Observation Description Date Details (start date - stop date) Never Smoker NA - NA Tobacco Use/Smoking Question Answer Notes Patient is a nonsmoker Tobacco Control (Standard) Question Answer Notes Tobacco use: Nonsmoker AUDIT-C (Standard) Question Answer Notes Did you have a drink containing alcohol in the p ast year? No Points 0 Interpretation Negative Problems Problem Type SNOMED Code ICD Code Onset Dates Problem Status W/U Status Risk Notes Problem Hypertension (93477915) Hypertension (I10) Active confirmed Problem Hypothyroid (23397600) Hypothyroid (E03.9) Active confirmed Problem Insomnia (449778975) Insomnia (G47.00) Active confirmed Problem Lung cancer (795550684) Lung cancer (C34.90) Active confirmed Problem Acute exacerbation of chronic obstructive airways disease (376103418) COPD exacerbation (J44.1) Active confirmed Problem Fever (372478658) Fever (R50.9) Active confirme d Problem Lung mass (159586450) Lung mass (R91.8) Active confirmed Problem Acute renal failure syndrome (41960205) Acute kidney failure (N17.9) Active confirmed Problem Hilar lymphadenopathy (54175241) Hilar lymphadenopathy (R59.0) Active confirmed Problem Metastatic malignant neoplasm to liver (disorder) (46265375) Cancer, metastatic to liver (C78.7) Active confirmed Problem Acquired thrombocytopenia (49526006) Acquired thrombocytopenia (D69.6) Active confirmed Problem Primary adenocarcinoma of upper lobe of right lung (1691081589791582) Primary adenocarcinoma of upper lobe of right lung (C34.11) Active confirmed Problem Plain X-ray of chest abnormal (finding) (8866911142) Abnormal chest x-ray (R93.89) Active confirmed Problem History of COVID-19 (861009844951048938 ) History of COVID-19 (Z86.16) Active confirmed Vital Signs Heart Rate 62 /min 02/29/2024 Temperature 101.6 degrees Fahrenheit 09/04/2024 Respiratory Rate 18 /min 02/29/2024 Blood pressure diastolic 94 mm Hg 11/23/2024 Oximetry 97 % 02/29/2024 Height 61 in 11/23/2024 Blood pressure systolic 162 mm Hg 11/23/2024 Weight 125.2 lbs 11/23/2024 BMI 23.65 kg/m2 11/23/2024 Procedures Procedure Date Ordered Date Performed Result Body Sit e Bronchoscopy w/ Fluoro 02/09/2024 02/15/2024 N/A PFT (98423, 14883, 98834) 02/09/2024 02/18/2024 N/A Encounters Encounter Location Date Provider Diagnosis Pulmonary [facility] [address] [place] [address] 03/13/2024 [facility] [address] [place] [address] 04/14/2024 Jerod Baker [facility] [address] [place] [address] 06/07/2024 Jerod Baker [facility] [address] [place] [address] 08/02/2024 Jerod Baker Localized swelling o f right forearm R22.31 [facility] [address] [place] [address] 08/03/2024 Jerod Baker Hypothyroid E03.9 [facility] [address] [place] [address] 08/16/2024 Jerod Baker [facility] [address] [place] [address] 02/07/2024 Jerod Baker Pulmonary [facility] [address] [place] [address] [facility] [address] [place] [address] 02/09/2024 Michelle Samsa [facility] [address] [facility] [place] [place] [address] 02/15/2024 Jerod Starry [facility] [address] [facility] [place] [place] [address] 02/21/2024 Michelle [facility] [address] [facility] [place] [place] [address] 03/01/2024 [facility] [address] [facility] [place] [place] [address] 02/09/2024 Michelle [facility] Lung mass R91.8 ; Hi lar lymphadenopathy R59.0 and History of COVID-19 Z86.16 [facility] [address] [facility] [place] [place] [address] 2024 Jerod Hoy Fever R50.9 [facility] [address] [facility] [place] [place] [address] 08/02/2024 Jerod Hoy Cancer, metastatic t o liver C78.7 ; Hypertension I10 and COPD exacerbation J44.1 [facility] [address] [facility] [place] [place] [address] 09/04/2024 Jerod Hoy COPD exacerbation J4 4.1 [facility] [address] [facility] [place] [place] [address] 11/23/2024 Jerod Hoy Hypertension I10 and Lung cancer C34.90 [facility] [address] [facility] [place] [place] [address] 02/29/2024 [facility] Hilar lymphadenopath y R59.0 ; Primary adenocarcinoma of upper lobe of right lung C34.11 and History of COVID-19 Z86.16 [facility] [address] [facility] [place] [place] [address] 03/14/2024 Kristijuan Alcocerwla [facility] [address] [facility] [place] [place] [address] 01/23/2025 Kristi Alcocerwla [facility] [address] [facility] [place] [place] [address] 05/31/2024 Kristihansa Chester [facility] [facility] [address] [facility] [place] [address] 06/13/2024 Kristi Nemo [facility] [address] [facility] [place] [address] 07/31/2024 Kristi Nemo [facility] [address] [facility] [place] [address] 08/08/2024 Kristi Nemo [facility] [address] [facility] [place] [address] 08/22/2024 Kristi Nemo [facility] [address] [facility] [place] [address] 05/09/2024 Kristi Nemo [facility] [address] [facility] [place] [address] 05/16/2024 Kristi Nemo [facility] [address] [facility] [place] [address] 05/30/2024 Kristi Nemo [facility] [address] [place] [address] 11/07/2024 Kristi Nemo [facility] [address] [facility] [place] [address] 11/21/2024 Kristi Nemo [facility] [address] [facility] [place] [address] 12/19/2024 Kristi Nemo [facility] [address] [facility] [place] [address] 01/02/2025 Kristi Nemo [facility] [address] [facility] [place] [address] 01/09/2025 Kristi Nemo [facility] [address] [facility] [place] [address] 08/15/2024 Kristi Nemo [facility] [address] [facility] [place] [address] 08/29/2024 Kristi Nemo [facility] [address] [facility] [place] [address] 09/19/2024 Kristi Nemo [facility] [address] [facility] [place] [address] 09/26/2024 Kristi Nemo [facility] [address] [facility] [place] [address] 10/17/2024 Kristi Nemo [facility] [address] [facility] [place] [address] 10/03/2024 Kristi Nemo [facility] [address] [facility] [place] [address] 07/11/2024 Kristi Nemo [facility] [address] [facility] [place] [address] 10/17/2024 Kristi Nemo [facility] [address] [facility] [place] [address] 06/27/2024 Kristihansa [facility] [address] [facility] [place] [address] 02/15/2024 Michelle Gutierrez [facility] [address] [facility] [place] [address] 06/06/2024 Kristihansa Chester [facility] [address] [facility] [place] [address] 09/05/2024 Kristi Nemo [facility] [address] [facility] [place] [address] 01/16/2025 Kristi Nemo [facility] [address] [facility] [place] [address] 08/15/2024 Kristi Nemo [facility] [address] [facility] [place] [address] 03/28/2024 Kristi Nemo [facility] [address] [facility] [place] [address] 07/11/2024 Kristi Nemo [facility] [address] [facility] [place] [address] 07/25/2024 Kristi Nemo [facility] [address] [facility] [place] [address] 08/01/2024 Kristi Nemo [facility] [address] [facility] [place] [address] 08/08/2024 Kristi Nemo [facility] [address] [facility] [place] [address] 08/22/2024 Kristi Nemo [facility] [address] [facility] [place] [address] 05/09/2024 Kristijuan Chester [facility] [address] [facility] [place] [address] 05/30/2024 Kristijuan Chester [facility] [address] [facility] [place] [address] 06/20/2024 Kristijuan Chester [facility] [address] [facility] [place] [address] 10/24/2024 Kristijuan Chester [facility] [address] [facility] [place] [address] 11/07/2024 Kristijuan Chester [facility] [address] [facility] [place] [address] 11/21/2024 Kristijuan Chester [facility] [address] [facility] [place] [address] 12/19/2024 Kristi Chester [facility] [address] [facility] [place] [address] 04/11/2024 Kristijuan Chester [facility] [address] [facility] [place] [address] 04/18/2024 Kristijuan Chester [facility] [address] [facility] [place] [address] 04/25/2024 Kristijuan Chester [facility] [address] [facility] [place] [address] 08/29/2024 Kristijuan Chester [facility] [address] [facility] [place] [address] 09/19/2024 Kristijuan Chester [facility] [address] [facility] [place] [address] 09/12/2024 Kristijuan Chester [facility] [address] [facility] [place] [address] 09/26/2024 Kristijuan Chester [facility] [address] [facility] [place] [address] 07/04/2024 Kristi Chester Assessments Encounter Date Diagnosis (ICD Code) Assessment Notes Treatment Notes Treatment Clinical Notes Section Notes 02/09/2024 Lung mass (ICD-10 - R91.8) 6.2cm RUL mass, along with surrounding GGO, 1.4cm LLL GGO, and 0.6cm RLL solid nodule. Lymphadenopathy is present. This is highly suspicious for neoplasm, regardless that she has never smoked (? adenocarcinoma). Unclear if the other nodule or GGO are associated with it or not, but the mass itself is not a typical manifestation of COVID pneumonia. I personally reviewed the imaging, and a bronchus from the posterior segment of the RUL appears to course straight into the mass. I recommended bronchoscopy to obtain a tissue diagnosis given the high suspicion for neoplasm. Discussed risks of bronchoscopy with the patient in order to obtain informed consent, including, but not limited to: pain, aspiration of gastric contents, hemoptysis (from mild to massive hemorrhage), infection, hoarseness (with rare risk of temporary or permanent vocal cord damage/paralysis), pneumothorax (~5%) which may require chest tube placement, acute respiratory failure with need for non-invasive or invasive ventilation (temporary to long-term), ICU observation/admiss ion, , a non-diagnostic study, or any other unforeseen complication. Risks of general anesthesia were deferred to the anesthesia department. Patient voiced agreement to proceed. Plans are for bronchoscopy with BAL with biopsy +/- brushing. In the event that I do not directly visualize the mass, fluoroscopy is ordered as a back-up. Plan to perform surgery next week. With the lymphadenopathy, there is concern there could be metastatic disease. PET is ordered to fully evaluate the body (though it may not be able to evaluate the ground glass nature of the LLL nodule, and the 0.6cm RLL is under the resolution capabilities of PET). In the event surgical intervention would be indicated, a PFT as been ordered for preoperative pulmonary evaluation. Will F/U after bronchoscopy to review pathology. 02/09/2024 Hilar lymphadenopathy (ICD-10 - R59.0) Right hilar, pretracheal and subcarinal lymphadenopathy. Suspect related to the RUL mass, but it could also be associated with past COVID-19 infection. PET is ordered to better evaluate. 2024 Fever (ICD-10 - R50.9) 08/02/2024 Cancer, metastatic to liver (ICD-10 - C78.7) 08/02/2024 Hypertension (ICD-10 - I10) 09/04/2024 COPD exacerbation (ICD-10 - J44.1) 11/23/2024 Hypertension (ICD-10 - I10) 11/23/2024 Lung cancer (ICD-10 - C34.90) 08/02/2024 Localized swelling of right forearm (ICD-10 - R22.31) 08/03/2024 Hypothyroid (ICD-10 - E03.9) 02/29/2024 Hilar lymphadenopathy (ICD-10 - R59.0) Right hilar, pretracheal and subcarinal lymphadenopathy. Suspect related to the RUL mass, but it could also be associated with past COVID-19 infection. PET has been ordered and scheduled for 03/06/2024. 02/29/2024 Primary adenocarcinoma of upper lobe of right lung (ICD-10 - C34.11) 6.2cm RUL mass, along with surrounding GGO, 1.4cm LLL GGO, and 0.6cm RLL solid nodule. Biopsy of the RUL mass on 02/15/2024 via bronchoscopy was positive for adenocarcinoma, as expected. Staining was positive for cytokeratin 7 and Napsin, and negative for cytokeratin 20 and 5/6 immunostain along with p40. PET is scheduled for 03/06/2024. Explained that the neck step after PET is to see oncology. I am unclear if the other groundglass opacities/nodule/l ymphadenopathy are related or not, though my concern is that if they are positive, this can change the staging. I provided her with local options for oncology referral. Patient elected to go with [facility] as her sister goes there for care. Will send information there. She was counseled that if they need biopsies of the lymph nodes, she may be referred to [place] for EBUS; I do not have that available here at [facility]. As of this time, I have nothing further to provide the patient. I will be available for any future pulmonary issues. She may return as needed. 02/29/2024 History of COVID-19 (ICD-10 - Z86.16) Diagnosed 06/2023. Unclear if GGO and lymphadenopathy are associated with COVID-19 vs. adenocarcinoma. 08/02/2024 COPD exacerbation (ICD-10 - J44.1) 02/09/2024 History of COVID-19 (ICD-10 - Z86.16) 06/2023. 02/29/2024 Other Plan Of Treatment Pending Test Test Name Order Date XR Chest PA and Lateral (Routine CXR) * 01/14/2024 Surgical Pathology ([facility]) COVID-19, Flu A+B IH 09/04/2024 VL Extremity Venous Duplex Upper Right 0 08/02/2024 CBC AUTO DIFF 08/22/2024 CBC AUTO DIFF 08/29/2024 CBC AUTO DIFF 09/04/2024 CBC AUTO DIFF 09/26/2024 CBC AUTO DIFF 09/12/2024 CBC AUTO DIFF 09/19/2024 CBC AUTO DIFF 10/03/2024 CBC AUTO DIFF 10/17/2024 CBC AUTO DIFF 10/24/2024 CBC AUTO DIFF 10/31/2024 CBC AUTO DIFF 11/07/2024 CBC AUTO DIFF 11/14/2024 CBC AUTO DIFF 11/21/2024 CBC AUTO DIFF 12/05/2024 CBC AUTO DIFF 12/19/2024 CBC AUTO DIFF 01/02/2025 CBC AUTO DIFF 01/09/2025 CBC AUTO DIFF 01/16/2025 CBC AUTO DIFF 01/23/2025 CULTURE SPUTUM 2024 FERRITIN 01/02/2025 FERRITIN 11/21/2024 FREE T4 09/26/2024 IRON AND TIBC 11/21/2024 IRON AND TIBC 01/02/2025 MAGNESIUM 10/31/2024 MAGNESIUM 11/21/2024 MAGNESIUM 10/24/2024 MAGNESIUM 10/03/2024 MAGNESIUM 09/26/2024 MAGNESIUM 08/22/2024 MAGNESIUM 08/29/2024 MAGNESIUM 01/23/2025 PROF 14(COMP METB) 01/23/2025 PROF 14(COMP METB) 01/16/2025 PROF 14(COMP METB) 08/29/2024 PROF 14(COMP METB) 08/22/2024 PROF 14(COMP METB) 09/26/2024 PROF 14(COMP METB) 09/19/2024 PROF 14(COMP METB) 10/17/2024 PROF 14(COMP METB) 10/03/2024 PROF 14(COMP METB) 10/24/2024 PROF 14(COMP METB) 10/31/2024 PROF 14(COMP METB) 11/14/2024 PROF 14(COMP METB) 11/07/2024 PROF 14(COMP METB) 11/21/2024 PROF 14(COMP METB) 12/05/2024 PROF 14(COMP METB) 01/02/2025 PROF 14(COMP METB) 12/19/2024 PROF CHEM 8 (BAS METB) 01/09/2025 PROF CHEM 8 (BAS METB) 09/12/2024 PROF CHEM 8 (BAS METB) 09/04/2024 SPUTUM GRAM STAIN 2024 TSH 09/26/2024 CT CHEST W CON 01/17/2024 THYROID PANEL (T4/TSH/FREE T3) Blood Culture 1 09/04/2024 Blood Culture 1 09/26/2024 Blood Culture 2 09/26/2024 Blood Culture 2 09/04/2024 Manual Differential 09/19/2024 Manual Differential 01/09/2025 Manual Differential 10/17/2024 Second ABO/RH Type 09/12/2024 Type and Screen 09/12/2024 PET skull to mid thigh 11/15/2024 TSH W/ REFLEX FT4 10/24/2024 TSH W/ REFLEX FT4 08/22/2024 Pheresis Platelets 09/12/2024 Next Appt Details Provider Name:Kristi Alcocerwla , 02/06/2025 09:00:00 AM, [address] [place], [address], Provider Name:Kristi Nemo , 02/06/2025 09:15:00 AM, [address] [place], [address], Insurance Providers Payer Name Payer Address Payer Phone Subscriber Number Group Number Insured Name Patient Relationship to Insured Coverage Start Date Coverage End Date [employer] ADV PLAN [address] [address] [place] [phone] [id number] Isela De La Rosa Self - patient is the insured 3 Medical (General) History Medical History History ICD Code Primary adenocarcinoma of upper lobe of right lung C34.11 Hilar lymphadenopathy R59.0 History of COVID-19 Z86.16 Surgical History Surgery Date(Month/Year) Bronchoscopy 02/15/2024 section Right arm surgery Hysterectomy
--- NOTE | 2025-01-31 12:52 | CT_ITS ---
The [address] [address] Patient Name: JASON DE LA ROSA MRN: [id number] date: 1955 Sex: F Assigned Patient Location: CT Current Patient Location: Accession/Order Number: [id number] Exam Date: 02/01/2025 08:33 Report Date: 02/01/2025 10:16 At the request of: MIYA ALAN MD Procedure: CT abdomen pelvis wo con CT CHEST, ABDOMEN AND PELVIS WITHOUT CONTRAST CLINICAL DATA: Follow-up right upper lobe cancer. COMPARISON: PET CT 11/13/2024 Spiral images were obtained through the chest, abdomen and pelvis without contrast. Images of the chest were reviewed using both narrow and wide window settings. This CT exam was performed using one or more following dose reduction techniques: Automated exposure control, adjustment of the mA and/or kV according to patient size, or use of iterative reconstruction technique. The heart is within normal limits for size. There is a trace amount of pericardial fluid. There is minor coronary artery disease. No aortic aneurysm is seen. Patient has a right-sided Upbopl-i-Cpxw catheter. The thyroid lobes remain enlarged. There is an enlarging masslike opacity in the right suprahilar region. This is difficult to fully evaluate on this unenhanced study however it measures at least 6.4 x 5.8 x 5.2 cm in size. There may be mediastinal extension in the paratracheal region. There is encasement of upper lobe bronchi. This could be progression of post obstructive consolidation and/or enlarging mass. There are some additional small scattered mediastinal lymph nodes which were also present previously. There is a new moderate size layering right pleural effusion. There is minor adjacent atelectasis at the right lower lobe. There are some additional areas of linear atelectasis and/or scarring bilaterally. A 6 mm nodule at the right lower lung (axial image 64) might be the same nodule seen on the PET study on image #116. There is a posterior left upper lobe nodule on axial image 33 which was seen at that time. The irregular nodular groundglass opacity at the superior segment left lower lobe is also not new. There is slight levoscoliotic curvature and mild degenerative changes at the spine. There are several scattered osteoblastic spine, rib and right scapular osteoblastic lesions. Assessment of the intra-abdominal organs is slightly limited by the absence of contrast. There is a tiny hypodensity within the liver near the IVC that might be a cyst. No calcified gallstones are identified. The spleen, pancreas and adrenal glands show no acute findings. No renal calculi or hydronephrosis are noted. The abdominal aorta is normal caliber and there is minimal atherosclerotic plaque. No enlarged lymph nodes or ascites are identified. The small bowel loops are normal caliber. There is stool at the right colon. The left colon is decompressed. There is slight dextroscoliotic curvature. Osteoblastic bone lesions are seen at the lumbar spine. Images through the pelvis show normal caliber small bowel. There is distal colonic stool. No diverticular disease is seen. The uterus is surgically absent. No urinary bladder abnormalities are noted. There is no ascites. Osteoblastic lesions are seen at the sacrum and iliac bones. There are mild degenerative changes at the spine. CT/CT chest wo con IMPRESSION: ENLARGING MASSLIKE AREA IN THE RIGHT SUPRAHILAR REGION WHICH COULD BE PROGRESSION OF POSTOBSTRUCTIVE CONSOLIDATION AND/OR WORSENING OF PATIENT'S KNOWN NEOPLASM. DEVELOPING RIGHT PLEURAL EFFUSION. SMALL BILATERAL PULMONARY NODULES AND LEFT UPPER LOBE IRREGULAR NODULAR GROUNDGLASS OPACITY WHICH ARE SIMILAR. STABLE BILATERAL THYROID ENLARGEMENT. NO BOWEL OR URINARY TRACT OBSTRUCTION. CONTINUED DIFFUSE OSTEOBLASTIC METASTASES. Impression dictated by: Yasmin Maier M.D. 02/01/2025 10:16 AM Dictation Location: [place] [address] Electronically authenticated by: [id number] Y Date: 02/01/2025 10:16
--- NOTE | 2025-01-31 12:52 | CT_ITS ---
The [address] [address] Patient Name: JASON DE LA ROSA MRN: [id number] date: 1955 Sex: F Assigned Patient Location: CT Current Patient Location: Accession/Order Number: [id number] Exam Date: 02/01/2025 08:33 Report Date: 02/01/2025 10:16 At the request of: MIYA ALAN MD Procedure: CT abdomen pelvis wo con CT CHEST, ABDOMEN AND PELVIS WITHOUT CONTRAST CLINICAL DATA: Follow-up right upper lobe cancer. COMPARISON: PET CT 11/13/2024 Spiral images were obtained through the chest, abdomen and pelvis without contrast. Images of the chest were reviewed using both narrow and wide window settings. This CT exam was performed using one or more following dose reduction techniques: Automated exposure control, adjustment of the mA and/or kV according to patient size, or use of iterative reconstruction technique. The heart is within normal limits for size. There is a trace amount of pericardial fluid. There is minor coronary artery disease. No aortic aneurysm is seen. Patient has a right-sided Pcykfd-g-Dlwx catheter. The thyroid lobes remain enlarged. There is an enlarging masslike opacity in the right suprahilar region. This is difficult to fully evaluate on this unenhanced study however it measures at least 6.4 x 5.8 x 5.2 cm in size. There may be mediastinal extension in the paratracheal region. There is encasement of upper lobe bronchi. This could be progression of post obstructive consolidation and/or enlarging mass. There are some additional small scattered mediastinal lymph nodes which were also present previously. There is a new moderate size layering right pleural effusion. There is minor adjacent atelectasis at the right lower lobe. There are some additional areas of linear atelectasis and/or scarring bilaterally. A 6 mm nodule at the right lower lung (axial image 64) might be the same nodule seen on the PET study on image #116. There is a posterior left upper lobe nodule on axial image 33 which was seen at that time. The irregular nodular groundglass opacity at the superior segment left lower lobe is also not new. There is slight levoscoliotic curvature and mild degenerative changes at the spine. There are several scattered osteoblastic spine, rib and right scapular osteoblastic lesions. Assessment of the intra-abdominal organs is slightly limited by the absence of contrast. There is a tiny hypodensity within the liver near the IVC that might be a cyst. No calcified gallstones are identified. The spleen, pancreas and adrenal glands show no acute findings. No renal calculi or hydronephrosis are noted. The abdominal aorta is normal caliber and there is minimal atherosclerotic plaque. No enlarged lymph nodes or ascites are identified. The small bowel loops are normal caliber. There is stool at the right colon. The left colon is decompressed. There is slight dextroscoliotic curvature. Osteoblastic bone lesions are seen at the lumbar spine. Images through the pelvis show normal caliber small bowel. There is distal colonic stool. No diverticular disease is seen. The uterus is surgically absent. No urinary bladder abnormalities are noted. There is no ascites. Osteoblastic lesions are seen at the sacrum and iliac bones. There are mild degenerative changes at the spine. CT/CT abdomen pelvis wo con IMPRESSION: ENLARGING MASSLIKE AREA IN THE RIGHT SUPRAHILAR REGION WHICH COULD BE PROGRESSION OF POSTOBSTRUCTIVE CONSOLIDATION AND/OR WORSENING OF PATIENT'S KNOWN NEOPLASM. DEVELOPING RIGHT PLEURAL EFFUSION. SMALL BILATERAL PULMONARY NODULES AND LEFT UPPER LOBE IRREGULAR NODULAR GROUNDGLASS OPACITY WHICH ARE SIMILAR. STABLE BILATERAL THYROID ENLARGEMENT. NO BOWEL OR URINARY TRACT OBSTRUCTION. CONTINUED DIFFUSE OSTEOBLASTIC METASTASES. Impression dictated by: Yasmin Maier M.D. 02/01/2025 10:16 AM Dictation Location: [place] [address] Electronically authenticated by: [id number] Y Date: 02/01/2025 10:16
== END 2025-01-31 12:49 | disposition home or self-care (01) ==
LOC: CT 12:49
PROVIDERS: PCP Family Medicine; Visit Provider Internal Medicine Hematology & Oncology
DX: Z51.11 Encounter for antineoplastic chemotherapy (principal); C34.11 Malignant neoplasm of upper lobe, right bronchus or lung; R11.2 Nausea with vomiting, unspecified; C77.1 Secondary and unspecified malignant neoplasm of intrathoracic lymph nodes; C78.7 Secondary malignant neoplasm of liver and intrahepatic bile duct; C79.51 Secondary malignant neoplasm of bone; D64.9 Anemia, unspecified; D69.6 Thrombocytopenia, unspecified; D70.1 Agranulocytosis secondary to cancer chemotherapy; Z79.899 Other long term (current) drug therapy; D64.81 Anemia due to antineoplastic chemotherapy; D50.9 Iron deficiency anemia, unspecified; K90.9 Intestinal malabsorption, unspecified; R91.8 Other nonspecific abnormal finding of lung field
CPT/HCPCS: 71250; 74176

== ENCOUNTER 2025-02-20 07:16 | Outpatient (RCR) | payer MEDICARE, SELFPAY ==
[2025-01-23 09:45] VITALS: BP 149/89; PULSE 73; TEMP 36.6; O2SAT 94
[2025-01-23 09:57] LABS: Hematocrit 38.0 % (36.0-48.0); Hemoglobin 11.8 g/dL (12.0-16.0); Immature Granulocytes Abs Auto 0.03 10^3/uL (0.00-0.03); Immature Granulocytes Pct Auto 0.5 % (0.0-0.5); Lymphocytes Absolute Auto 1.0 10^3/uL (1.2-3.8); Mean Corpuscular HGB Conc 31.1 g/dL (29.9-35.2); Mean Corpuscular Hemoglobin 29.4 pg (26.7-34.0); Mean Corpuscular Volume 94.8 fL (81.0-99.0); Platelet Count 161 10^3/uL (150-450); Red Blood Count 4.01 10^6/uL (4.20-5.40); White Blood Count 6.4 10^3/uL (4.0-11.0)
[2025-01-23 10:12] LABS: Magnesium 2.0 mg/dL (1.8-2.4)
[2025-01-23 10:13] LABS: Alanine Aminotransferase 15 U/L (14-59); Albumin Globulin Ratio 0.7; Albumin Level 3.0 g/dL (3.4-5.0); Alkaline Phosphatase 113 U/L (46-116); Anion Gap 15.3; Aspartate Amino Transferase 15 U/L (15-37); Blood Urea Nitrogen 25.0 mg/dL (7.0-18.0); Calcium 8.9 mg/dL (8.5-10.1); Carbon Dioxide 24.9 mmol/L (21.0-32.0); Chloride 105 mmol/L (98-107); Estimated GFR (African America 47 (>=60 mL/min/1.73m^2); Estimated GFR (Non-African Ame 39 (>=60 mL/min/1.73m^2); Globulin 4.4 g/dL; Glucose 99 mg/dL (74-106); Potassium 4.2 mmol/L (3.5-5.1); Sodium 141 mmol/L (136-145); Total Protein 7.4 g/dL (6.4-8.2)
[2025-01-23] MEDS: DENOSUMAB 120 MG/1.7 ML VIAL SQ (10:29)
[2025-01-23] MEDS: HEPARIN SODIUM (PORCINE) PF LOCK FLUSH 500 UNIT/5 ML SYRINGE IV (10:30)
[2025-02-06] MEDS: HEPARIN SODIUM (PORCINE) PF LOCK FLUSH 500 UNIT/5 ML SYRINGE IV (10:15)
[2025-02-06 10:17] LABS: Hematocrit 33.7 % (36.0-48.0); Hemoglobin 10.8 g/dL (12.0-16.0); Immature Granulocytes Abs Auto 0.04 10^3/uL (0.00-0.03); Immature Granulocytes Pct Auto 0.5 % (0.0-0.5); Lymphocytes Absolute Auto 0.9 10^3/uL (1.2-3.8); Mean Corpuscular HGB Conc 32.0 g/dL (29.9-35.2); Mean Corpuscular Hemoglobin 29.0 pg (26.7-34.0); Mean Corpuscular Volume 90.3 fL (81.0-99.0); Platelet Count 191 10^3/uL (150-450); Red Blood Count 3.73 10^6/uL (4.20-5.40); White Blood Count 8.4 10^3/uL (4.0-11.0)
[2025-02-20 09:09] VITALS: BP 123/80; PULSE 62; TEMP 36; O2SAT 95
[2025-02-20 09:41] LABS: Hematocrit 34.9 % (36.0-48.0); Hemoglobin 11.2 g/dL (12.0-16.0); Immature Granulocytes Abs Auto 0.06 10^3/uL (0.00-0.03); Immature Granulocytes Pct Auto 0.6 % (0.0-0.5); Lymphocytes Absolute Auto 1.0 10^3/uL (1.2-3.8); Mean Corpuscular HGB Conc 32.1 g/dL (29.9-35.2); Mean Corpuscular Hemoglobin 28.5 pg (26.7-34.0); Mean Corpuscular Volume 88.8 fL (81.0-99.0); Platelet Count 201 10^3/uL (150-450); Red Blood Count 3.93 10^6/uL (4.20-5.40); White Blood Count 9.4 10^3/uL (4.0-11.0)
[2025-02-20 09:50] LABS: Alanine Aminotransferase 19 U/L (14-59); Albumin Globulin Ratio 0.7; Albumin Level 3.0 g/dL (3.4-5.0); Alkaline Phosphatase 131 U/L (46-116); Anion Gap 13.0; Aspartate Amino Transferase 16 U/L (15-37); Blood Urea Nitrogen 22.0 mg/dL (7.0-18.0); Calcium 9.0 mg/dL (8.5-10.1); Carbon Dioxide 28.2 mmol/L (21.0-32.0); Chloride 99 mmol/L (98-107); Estimated GFR (African America 47 (>=60 mL/min/1.73m^2); Estimated GFR (Non-African Ame 39 (>=60 mL/min/1.73m^2); Globulin 4.5 g/dL; Glucose 139 mg/dL (74-106); Magnesium 1.8 mg/dL (1.8-2.4); Potassium 4.2 mmol/L (3.5-5.1); Sodium 136 mmol/L (136-145); Total Protein 7.5 g/dL (6.4-8.2)
[2025-02-20] MEDS: HEPARIN SODIUM (PORCINE) PF LOCK FLUSH 500 UNIT/5 ML SYRINGE IV (10:11)
== END 2025-02-22 23:59 | disposition home or self-care (01) ==
LOC: HEMC 07:16
PROVIDERS: PCP Family Medicine; Visit Provider Internal Medicine Hematology & Oncology
DX: C34.11 Malignant neoplasm of upper lobe, right bronchus or lung (principal); C77.1 Secondary and unspecified malignant neoplasm of intrathoracic lymph nodes; R11.2 Nausea with vomiting, unspecified; C78.7 Secondary malignant neoplasm of liver and intrahepatic bile duct; C79.51 Secondary malignant neoplasm of bone; D64.9 Anemia, unspecified; D69.6 Thrombocytopenia, unspecified; D70.1 Agranulocytosis secondary to cancer chemotherapy; Z79.899 Other long term (current) drug therapy; D50.9 Iron deficiency anemia, unspecified; K90.9 Intestinal malabsorption, unspecified; D64.81 Anemia due to antineoplastic chemotherapy; Z90.710 Acquired absence of both cervix and uterus; Z86.16 Personal history of COVID-19; R05.3 Chronic cough
CPT/HCPCS: 36591; 80053; 83735; 85025; 96372; 96523; G0463; J0897; J1642

== ENCOUNTER 2025-03-20 07:44 | Outpatient (RCR) | payer MEDICARE, SELFPAY ==
[2025-02-27 09:15] VITALS: BP 125/79; PULSE 70; TEMP 35.8; O2SAT 95
[2025-02-27 10:01] LABS: Hematocrit 35.3 % (36.0-48.0); Hemoglobin 11.5 g/dL (12.0-16.0); Immature Granulocytes Abs Auto 0.04 10^3/uL (0.00-0.03); Immature Granulocytes Pct Auto 0.6 % (0.0-0.5); Lymphocytes Absolute Auto 1.0 10^3/uL (1.2-3.8); Mean Corpuscular HGB Conc 32.6 g/dL (29.9-35.2); Mean Corpuscular Hemoglobin 28.8 pg (26.7-34.0); Mean Corpuscular Volume 88.5 fL (81.0-99.0); Platelet Count 268 10^3/uL (150-450); Red Blood Count 3.99 10^6/uL (4.20-5.40); White Blood Count 6.8 10^3/uL (4.0-11.0)
--- NOTE | 2025-02-27 10:12 | PC.NURSE ---
0955: Dr. Chester to chairside for MD visit.
[2025-02-27 10:17] LABS: Alanine Aminotransferase 19 U/L (14-59); Albumin Globulin Ratio 0.6; Albumin Level 2.9 g/dL (3.4-5.0); Alkaline Phosphatase 140 U/L (46-116); Anion Gap 10.3; Aspartate Amino Transferase 16 U/L (15-37); Blood Urea Nitrogen 16.0 mg/dL (7.0-18.0); Calcium 8.5 mg/dL (8.5-10.1); Carbon Dioxide 28.8 mmol/L (21.0-32.0); Chloride 100 mmol/L (98-107); Estimated GFR (African America 50 (>=60 mL/min/1.73m^2); Estimated GFR (Non-African Ame 41 (>=60 mL/min/1.73m^2); Globulin 4.8 g/dL; Glucose 120 mg/dL (74-106); Potassium 4.1 mmol/L (3.5-5.1); Sodium 135 mmol/L (136-145); Total Protein 7.7 g/dL (6.4-8.2)
[2025-02-27 10:21] LABS: Iron 40.0 ug/dL (50.0-170.0); Percent Iron Saturation 18.6 %; Total Iron Binding Capacity 215.0 ug/dL (250.0-450.0)
[2025-02-27 10:24] LABS: Magnesium 2.0 mg/dL (1.8-2.4); Thyroid Stimulating Hormone 7.526 uIU/mL (0.358-3.740)
[2025-02-27 10:36] LABS: Ferritin 955.0 ng/mL (8.0-252.0)
[2025-02-27] MEDS: FAMOTIDINE 20 MG TABLET PO (10:51)
[2025-02-27] MEDS: 0.9 % SODIUM CHLORIDE 250 ML 10 ML IV (10:51)
[2025-02-27] MEDS: PALONOSETRON HCL 0.25 MG/5 ML VIAL IV (10:56)
[2025-02-27] MEDS: [UNRECOGNIZED DRUG - OTHER] IV (10:57)
[2025-02-27] MEDS: DIPHENHYDRAMINE HCL IV (10:57)
[2025-02-27] MEDS: DEXAMETHASONE SODIUM PHOSPHATE IV (10:57)
--- NOTE | 2025-02-27 11:01 | PC.NURSE ---
1051: Pre-chemo meds initiated at this time. Pt. given protein shake and menu. Warm blanket and pillow provided.
[2025-02-27] MEDS: APREPITANT 130 MG in 0.9 % SODIUM CHLORIDE 100 ML 236 MG IV (11:28)
[2025-02-27] MEDS: PACLITAXEL IV (12:01)
[2025-02-27] MEDS: SODIUM CHLORIDE 0.9% IV ×2 (12:01→13:09)
--- NOTE | 2025-02-27 12:11 | PC.NURSE ---
1201: IV Taxol infusion initiated at this time. Pt. eating lunch, but coughing t.o. Instructed slow small bites. Pt. compliant. Denies needs or c/o.
--- NOTE | 2025-02-27 12:40 | PC.NURSE ---
1240: Tolerating infusion without c/o. Cont. with harsh, moist cough. Dr. Chester notified, new order obtained.
[2025-02-27] MEDS: CARBOPLATIN IV (13:09)
[2025-02-27] MEDS: PROMETHAZINE HCL PO (13:20)
[2025-02-27] MEDS: CODEINE PO (13:20)
[2025-02-27 13:30] VITALS: BP 111/68; PULSE 67; TEMP 36.6; O2SAT 97
[2025-02-27 14:20] VITALS: BP 114/75; PULSE 69; TEMP 36.6; O2SAT 97
[2025-02-27] MEDS: HEPARIN SODIUM (PORCINE) PF LOCK FLUSH 500 UNIT/5 ML SYRINGE IV (14:35)
[2025-03-06 09:39] VITALS: BP 124/79; PULSE 117; TEMP 36.4; O2SAT 96
[2025-03-06 10:08] LABS: Hematocrit 31.4 % (36.0-48.0); Hemoglobin 10.3 g/dL (12.0-16.0); Immature Granulocytes Abs Auto 0.03 10^3/uL (0.00-0.03); Immature Granulocytes Pct Auto 0.6 % (0.0-0.5); Lymphocytes Absolute Auto 0.8 10^3/uL (1.2-3.8); Mean Corpuscular HGB Conc 32.8 g/dL (29.9-35.2); Mean Corpuscular Hemoglobin 28.6 pg (26.7-34.0); Mean Corpuscular Volume 87.2 fL (81.0-99.0); Platelet Count 235 10^3/uL (150-450); Red Blood Count 3.60 10^6/uL (4.20-5.40); White Blood Count 5.3 10^3/uL (4.0-11.0)
[2025-03-06 10:23] LABS: Alanine Aminotransferase 23 U/L (14-59); Albumin Globulin Ratio 0.8; Albumin Level 3.0 g/dL (3.4-5.0); Alkaline Phosphatase 124 U/L (46-116); Anion Gap 15.3; Aspartate Amino Transferase 22 U/L (15-37); Blood Urea Nitrogen 23.0 mg/dL (7.0-18.0); Calcium 8.8 mg/dL (8.5-10.1); Carbon Dioxide 24.7 mmol/L (21.0-32.0); Chloride 100 mmol/L (98-107); Estimated GFR (African America 59 (>=60 mL/min/1.73m^2); Estimated GFR (Non-African Ame 49 (>=60 mL/min/1.73m^2); Globulin 3.9 g/dL; Glucose 109 mg/dL (74-106); Magnesium 1.8 mg/dL (1.8-2.4); Potassium 4.0 mmol/L (3.5-5.1); Sodium 136 mmol/L (136-145); Total Protein 6.9 g/dL (6.4-8.2)
[2025-03-06] MEDS: DIPHENHYDRAMINE HCL IV (11:40)
[2025-03-06] MEDS: DEXAMETHASONE SODIUM PHOSPHATE IV (11:40)
[2025-03-06] MEDS: [UNRECOGNIZED DRUG - OTHER] IV (11:40)
[2025-03-06] MEDS: FAMOTIDINE 20 MG TABLET PO (11:43)
[2025-03-06] MEDS: PACLITAXEL IV (12:21)
[2025-03-06] MEDS: SODIUM CHLORIDE 0.9% IV (12:21)
[2025-03-06] MEDS: DENOSUMAB 120 MG/1.7 ML VIAL SQ (12:57)
--- NOTE | 2025-03-06 15:37 | PC.NURSE ---
[address] sneed stops in and speaks with patient. noted cough is much improved since last visit. IV ns initated at kvo. 1143 pre meds initiated 1220 IV taxol initated over 1 hour. patient up to bathroom to void. discussed home meds, complains of magnesium causing diarrhea, explained Magnesium level is 1.8 which is low normal. encouraged patient to try taking immodium as advised during chemo teach and see if that helps. verbalizes understanding. drinks protein drink as well as 1/2 piece of lemon pie and soup. and drinks a starry. Given 8 bottles of supplement drinks to try at home patien relates to drinking several protein drinks daily. Labs reviewed with patient.
[2025-03-13 09:48] VITALS: BP 129/76; PULSE 67; TEMP 36.2; O2SAT 95
[2025-03-13] MEDS: 0.9 % SODIUM CHLORIDE 250 ML 20 ML IV (10:35)
--- NOTE | 2025-03-13 10:36 | PC.NURSE ---
1030: Blood re-drawn due to clotting issues . Pt. given Ensure to drink. Denies c/o.
[2025-03-13 10:45] LABS: Hematocrit 31.7 % (36.0-48.0); Hemoglobin 10.6 g/dL (12.0-16.0); Immature Granulocytes Abs Auto 0.01 10^3/uL (0.00-0.03); Immature Granulocytes Pct Auto 0.3 % (0.0-0.5); Lymphocytes Absolute Auto 1.1 10^3/uL (1.2-3.8); Mean Corpuscular HGB Conc 33.4 g/dL (29.9-35.2); Mean Corpuscular Hemoglobin 28.7 pg (26.7-34.0); Mean Corpuscular Volume 85.9 fL (81.0-99.0); Platelet Count 80 10^3/uL (150-450); Red Blood Count 3.69 10^6/uL (4.20-5.40); White Blood Count 3.0 10^3/uL (4.0-11.0)
[2025-03-13 11:07] LABS: Alanine Aminotransferase 21 U/L (14-59); Albumin Globulin Ratio 0.7; Albumin Level 3.0 g/dL (3.4-5.0); Alkaline Phosphatase 113 U/L (46-116); Anion Gap 11.5; Aspartate Amino Transferase 16 U/L (15-37); Blood Urea Nitrogen 19.0 mg/dL (7.0-18.0); Calcium 8.9 mg/dL (8.5-10.1); Carbon Dioxide 28.8 mmol/L (21.0-32.0); Chloride 101 mmol/L (98-107); Estimated GFR (African America 52 (>=60 mL/min/1.73m^2); Estimated GFR (Non-African Ame 43 (>=60 mL/min/1.73m^2); Globulin 4.1 g/dL; Glucose 147 mg/dL (74-106); Potassium 3.3 mmol/L (3.5-5.1); Sodium 138 mmol/L (136-145); Total Protein 7.1 g/dL (6.4-8.2)
--- NOTE | 2025-03-13 11:17 | PC.NURSE ---
Labs reviewed with Shade Lara to proceed with chemo.
[2025-03-13] MEDS: DEXAMETHASONE SODIUM PHOSPHATE IV (11:39)
[2025-03-13] MEDS: DIPHENHYDRAMINE HCL IV (11:39)
[2025-03-13] MEDS: [UNRECOGNIZED DRUG - OTHER] IV (11:39)
[2025-03-13] MEDS: FAMOTIDINE 20 MG TABLET PO (11:39)
[2025-03-13] MEDS: PACLITAXEL IV (12:04)
[2025-03-13] MEDS: SODIUM CHLORIDE 0.9% IV (12:04)
--- NOTE | 2025-03-13 12:10 | PC.NURSE ---
1204:Pre-meds infused, IV Taxol initiated at this time. Lunch tray provided.
[2025-03-13 13:08] VITALS: BP 129/76; PULSE 68; TEMP 36.6; O2SAT 95
[2025-03-13] MEDS: HEPARIN SODIUM (PORCINE) PF LOCK FLUSH 500 UNIT/5 ML SYRINGE IV (13:10)
[2025-03-20 09:55] VITALS: BP 114/77; PULSE 86; TEMP 36.4; O2SAT 95
[2025-03-20 10:09] LABS: Hematocrit 30.8 % (36.0-48.0); Hemoglobin 9.9 g/dL (12.0-16.0); Immature Granulocytes Abs Auto 0.02 10^3/uL (0.00-0.03); Immature Granulocytes Pct Auto 0.6 % (0.0-0.5); Lymphocytes Absolute Auto 0.6 10^3/uL (1.2-3.8); Mean Corpuscular HGB Conc 32.1 g/dL (29.9-35.2); Mean Corpuscular Hemoglobin 28.1 pg (26.7-34.0); Mean Corpuscular Volume 87.5 fL (81.0-99.0); Platelet Count 95 10^3/uL (150-450); Red Blood Count 3.52 10^6/uL (4.20-5.40); White Blood Count 3.1 10^3/uL (4.0-11.0)
[2025-03-20 10:19] LABS: Alanine Aminotransferase 22 U/L (14-59); Albumin Globulin Ratio 0.7; Albumin Level 2.9 g/dL (3.4-5.0); Alkaline Phosphatase 117 U/L (46-116); Anion Gap 16.1; Aspartate Amino Transferase 13 U/L (15-37); Blood Urea Nitrogen 14.0 mg/dL (7.0-18.0); Calcium 7.5 mg/dL (8.5-10.1); Carbon Dioxide 24.6 mmol/L (21.0-32.0); Chloride 102 mmol/L (98-107); Estimated GFR (African America 56 (>=60 mL/min/1.73m^2); Estimated GFR (Non-African Ame 46 (>=60 mL/min/1.73m^2); Globulin 4.2 g/dL; Glucose 137 mg/dL (74-106); Magnesium 1.3 mg/dL (1.8-2.4); Potassium 3.7 mmol/L (3.5-5.1); Sodium 139 mmol/L (136-145); TSH W/ REFLEX FT4 4.714 uIU/mL (0.358-3.740); Total Protein 7.1 g/dL (6.4-8.2)
[2025-03-20] MEDS: 0.9 % SODIUM CHLORIDE 250 ML 10 ML IV (11:00)
[2025-03-20] MEDS: FAMOTIDINE 20 MG TABLET PO (11:07)
[2025-03-20] MEDS: MAGNESIUM SULFATE IN WATER 2 GM/50 ML PREMIX IV (11:07)
[2025-03-20] MEDS: PALONOSETRON HCL 0.25 MG/5 ML VIAL IV (12:04)
[2025-03-20] MEDS: APREPITANT 130 MG in 0.9 % SODIUM CHLORIDE 100 ML 236 MG IV (12:10)
[2025-03-20] MEDS: [UNRECOGNIZED DRUG - OTHER] IV (12:10)
[2025-03-20] MEDS: DEXAMETHASONE SODIUM PHOSPHATE IV (12:10)
[2025-03-20] MEDS: DIPHENHYDRAMINE HCL IV (12:10)
[2025-03-20] MEDS: SODIUM CHLORIDE 0.9% IV ×2 (13:33→14:36)
[2025-03-20] MEDS: PACLITAXEL IV (13:33)
[2025-03-20 13:54] VITALS: BP 148/84; PULSE 69; TEMP 36.6; O2SAT 97
--- NOTE | 2025-03-20 13:58 | PC.NURSE ---
1100 Eats 2 bowls of oatmeal as well as protein shake. Dr. Chester in and examines.
--- NOTE | 2025-03-20 14:05 | PC.NURSE ---
1200 dozing, tolerating infusion without any s/s of reaction.
--- NOTE | 2025-03-20 14:09 | PC.NURSE ---
Eats grilled cheese and tomato soup
[2025-03-20] MEDS: CARBOPLATIN IV (14:36)
[2025-03-20] MEDS: HEPARIN SODIUM (PORCINE) PF LOCK FLUSH 500 UNIT/5 ML SYRINGE IV (15:45)
== END 2025-03-25 23:59 | disposition home or self-care (01) ==
LOC: HEMC 07:44
PROVIDERS: PCP Family Medicine; Visit Provider Internal Medicine Hematology & Oncology
DX: Z51.11 Encounter for antineoplastic chemotherapy (principal); Z51.12 Encounter for antineoplastic immunotherapy; C34.11 Malignant neoplasm of upper lobe, right bronchus or lung; C77.1 Secondary and unspecified malignant neoplasm of intrathoracic lymph nodes; C78.7 Secondary malignant neoplasm of liver and intrahepatic bile duct; C79.51 Secondary malignant neoplasm of bone; R11.2 Nausea with vomiting, unspecified; D64.9 Anemia, unspecified; D69.6 Thrombocytopenia, unspecified; D70.1 Agranulocytosis secondary to cancer chemotherapy; Z79.899 Other long term (current) drug therapy; D64.81 Anemia due to antineoplastic chemotherapy; D50.9 Iron deficiency anemia, unspecified; K90.9 Intestinal malabsorption, unspecified; Z63.4 Disappearance and death of family member; Z90.710 Acquired absence of both cervix and uterus; Z86.16 Personal history of COVID-19; R05.3 Chronic cough; N17.9 Acute kidney failure, unspecified
CPT/HCPCS: 36415; 36591; 80053; 82728; 83540; 83550; 83735; 84436; 84439; 84443; 85025; 86317; 86704; 87340; 96367; 96368; 96372; 96375; 96413; 96415; 96417; 99211; G0463; J0185; J0897; J1100; J1200; J1642; J2469; J3475; J9045; J9267; J9271

== ENCOUNTER 2025-04-24 09:22 | Outpatient (RCR) | payer MEDICARE, SELFPAY ==
[2025-03-27 09:23] VITALS: BP 102/72; PULSE 83; TEMP 35; O2SAT 95
--- OUTSIDE RECORDS SUMMARY | 2025-03-27 09:24 | XMS_ITS | Encounter Summary ---
Author Organization [facility] Address [address] [place] [address] Care Team Providers Care Recreation Technician Name Role Phone Mark Baker MD Primary Care Provider [phone] Kristi Chester MD Unavailable [phone] Sarah Elkins RN Unavailable Unavailable Ana Magallon RN Unavailable Unavailable Source Comments In the event this information is protected by the Federal Confidentiality of Alcohol and Drug AbusePatient Records regulations: The Federal rules restrict any use of the information to criminally investigate or prosecute any alcohol or drug abuse patient.[facility] Encounter Details Date Type Department Care Team (Late st Contact Info) Description 02/19/2025 Patient Msg Radiation Oncology [address] [place] [address] Williams Gonzalez MD [address] [place] [address] [place] [address] Appointment Cancellation Request Social History Tobacco Use Types Packs/Day Years Used Date Smoking Tobacco: Never Passive Smoke Exposure: Past Smokeless Tobacco: Never Alcohol Use Standard Drinks/Week Comments Never 0 (1 standard drink = 0.6 oz pur e alcohol) PHQ-2 Answer Date Recorded PHQ-2 score 1 02/14/2025 Area Deprivation Index Answer Date Marcello rded National Score (1-100), lower number is lower ri sk 63 02/12/2025 State Score (1-10), lower number is lower risk 4 02/12/2025 Data from: https://www.neighborhoodatlas.medicine.[facility].edu/. Last address used for calculation [address] [place] [address] [address] 02/12/2025 Comments No Sex and Gender Information Value Date Recorded Sex Assigned at Not on file Legal Sex Female 9:10 AM EST Gender Identity Not on file Sexual Orientation Not on file documented as of this encounter Plan of Treatment Not on file documented as of this encounter Visit Diagnoses Not on filedocumented in this encounter Care Teams Recreation Technician Relationship Specialty Start Date End Date Mark Baker MD [address] [place] [address] PCP - General Family Medicine 03/02/24 Kristi Chester MD [address] [place] [address] Referring Hematology/Oncology 08/15/24 Sarah Elkins, RN Specialty Oracle Business Analyst Hematology/Oncology 10/26/24 Ana Magallon, PAL[place] Specialty Oracle Business Analyst Hematology/Oncology 10/26/24 documented as of this encounter
--- OUTSIDE RECORDS SUMMARY | 2025-03-27 09:24 | XMS_ITS | Clinical Summary ---
Author Organization [facility] [facility] Address [id number] [address] [place] [address] Care Team Providers Care Cold Meat Cook Name Role Phone Mark Baker MD Primary Care Provider [phone] Allergies No known active allergies Medications magnesium [...] day. Max Daily Amount: 1 patch Active etmdqehp-ulbo-A A-calcium &mins (THERAGRAN-M) 9 mg iron-400 mcg [...] Not on file Insurance MEDICARE Care Teams Cold Meat Cook Relationship Specialty Start Date End Date Hoy, Mark M, MD [address] [place] [address] PCP - General Family Medicine 09/13/24
--- OUTSIDE RECORDS SUMMARY | 2025-03-27 09:24 | XMS_ITS | Encounter Summary ---
Author Organization [facility] tem Address [id number] [address] [place] [address] Care Team Providers Care Construction Coordinator Name Role Phone Mark Baker MD Primary Care Provider [phone] Reason for Referral * Diagnostic Imaging (Routine) - Pending Review Specialty Diagnoses / Procedures Referred By Contac t Referred To Contact Radiology Diagnoses LEIDA (acute kidney injury) Procedures IR percutaneous biopsy renal right IR percutaneous biopsy renal left Kristi Chester MD [address] [place] [address] [place] [address] Phone: tel: fax: Referral ID Status Reason Start Date Expiration Date V isits Requested Visits Authorized [id number] Pending Review 08/29/2024 08/29/2025 1 1 Encounter Details Date Type Department Care Team (Late st Contact Info) Description 08/29/2024 Orders Only [facility] - Interventional Radiology [address] [place] [id number] Kristi Chester MD [address] [place] [address] [place] [id number] LEIDA (acute kidney injury) ([facility]) (Primary Dx) Social History Tobacco Use Types [...] all of her questions were answered. Timeout: [place] timeout verification procedure was performed. Moderate sedation: The patient's cardiopulmonary status was evaluated and the patient is suitable for moderate sedation. During the course of the procedure, the patient was sedated with Sublimaze 50 mcg intravenously and Versed 0.5 MG intravenously while being monitored with ECG, blood pressure monitoring, and pulse oximeter by appropriately trained personnel. 30 minutes of xibx-gu-wgth moderate sedation was provided by the same [...] and all of her questionswere answered. Timeout: [place] timeout verification procedure was performed. Moderate sedation: The patient's cardiopulmonary status was evaluatedand the patient is suitable for moderate sedation. During the course ofthe procedure, the patient was sedated with Sublimaze 50 mcgintravenously and Versed 0.5 MG intravenously while being monitoredwith ECG, blood pressure monitoring, and pulse oximeter by appropriately trainedpersonnel. 30 minutes of inqj-vf-vtpu moderate sedation was provided bythe same physician. [...] injury) documented in this encounter Care Teams Construction Coordinator Relationship Specialty Start Date End Date Mark Baker MD [address] [place] [address] PCP - General Family Medicine 09/13/24 documented as of this encounter
--- OUTSIDE RECORDS SUMMARY | 2025-03-27 09:24 | XMS_ITS | Encounter Summary ---
Author Organization [facility] Address [address] [place] [address] Care Team Providers Care Magneto Electrician Name Role Phone Mark Baker MD Primary Care Provider [phone] Kristi Chester MD Unavailable Sarah Elkins RN Unavailable Unavailable Ana Magallon RN Unavailable Unavailable Source Comments In the event this information is protected by the Federal Confidentiality of Alcohol and Drug AbusePatient Records regulations: The Federal rules restrict any use of the information to criminally investigate or prosecute any alcohol or drug abuse patient.[facility] Reason for Visit * Reason Comments Garage Manager - Other Appointment Encounter Details Date Type Department Care Team (Late st Contact Info) Description 10/24/2024 Telephone Hematology/Oncology [address] [place] [address] [place] [address] [place] [address] Garage Manager - Other (Appointment) Social History Tobacco Use Types Packs/Day Years Used Date Smoking Tobacco: Never Assessed Area Deprivation Index Answer Date Marcello rded National Score (1-100), lower number is lower ri sk 63 08/21/2024 State Score (1-10), lower number is lower risk 4 08/21/2024 Data from: https://www.neighborhoodatlas.[facility].edu/. Last address used for calculation [address] 08/21/2024 Comments Unknown Sex and [...] is calling Minerva Lindsay MD today regarding Garage Manager - Other (Appointment) Would like to speak with provider regarding setting up a follow up appointment for patient. Patient has been identified by name and birthdate. Requesting response back: [phone] (home) [phone] (cell) Tatiana Sow October 24, 2024 documented in this encounter Plan of Treatment Not on file documented as of this encounter Visit Diagnoses Not on filedocumented in this encounter Care Teams Magneto Electrician Relationship Specialty Start Date End Date Mark Baker MD [address] [place] [address] PCP - General Family Medicine 03/02/24 Kristi Chester MD [address] [place] [address] Referring Hematology/Oncology 08/15/24 Sarah Elkins, RN Specialty Garage Manager Hematology/Oncology 10/26/24 Ana Magallon, PAL[place] Specialty Garage Manager Hematology/Oncology 10/26/24 documented as of this encounter
--- OUTSIDE RECORDS SUMMARY | 2025-03-27 09:24 | XMS_ITS | Encounter Summary ---
Author Organization [facility] Address [address] [place] [address] Care Team Providers Care Freight Rate Analyst Name Role Phone Mark Baker MD Primary Care Provider [phone] Kristi Chester MD Unavailable [phone] Sarah Elkins RN Unavailable Unavailable Ana Magallon RN Unavailable Unavailable Source Comments In the event this information is protected by the Federal Confidentiality of Alcohol and Drug AbusePatient Records regulations: The Federal rules restrict any use of the information to criminally investigate or prosecute any alcohol or drug abuse patient.[facility] Encounter Details Date Type Department Care Team (Late st Contact Info) Description 02/19/2025 Patient Msg Radiation Oncology [address] [place] [address] Williams Gonzalez MD [address] [place] [address] [place] [address] Appointment Cancellation Request Social History [...] is lower risk 4 02/12/2025 Data from: https://www.neighborhoodatlas.medicine.[facility].edu/. Last address used for calculation [address] [place] [address] [address] 02/12/2025 Comments No Sex and Gender Information Value Date Recorded Sex Assigned at Not on file Legal Sex Female 9:10 AM EST Gender Identity Not on file Sexual Orientation Not on file documented as of this encounter Plan of Treatment Not on file documented as of this encounter Visit Diagnoses Not on filedocumented in this encounter Care Teams Freight Rate Analyst Relationship Specialty Start Date End Date Mark Baker MD [address] [place] [address] PCP - General Family Medicine 03/02/24 Kristi Chester MD [address] [place] [address] Referring Hematology/Oncology 08/15/24 Sarah Elkins, RN Specialty Roll Repairer Hematology/Oncology 10/26/24 Ana Magallon, PALMA Specialty Roll Repairer Hematology/Oncology 10/26/24 documented as of this encounter
--- OUTSIDE RECORDS SUMMARY | 2025-03-27 09:24 | XMS_ITS | Clinical Summary ---
Author Organization [facility] Address [address] [place] [id number] Care Team Providers Care Family Support Coordinator Name Role Phone Mark Baker MD Primary Care Provider [phone] Kristi Chester MD Unavailable [phone] Sarah Elkins RN Unavailable Unavailable Ana Magallon RN Unavailable Unavailable Allergies No known active allergies Medications ibuprofen (MOTRIN) 600 mg tablet Take 600 [...] mouth every 8 hours as needed for nausea/vomitin g. 4 Active ondansetron orally disintegrating (ZOFRAN ODT) 4 mg disintegrating tablet Take 4 mg by mouth every 8 hours as needed for nausea/vomitin g. 4 Active citalopram hydrobromide (CELEXA) 10 mg tablet Take 10 mg by mouth once daily. Active predniSONE (DELTASONE) 10 mg tablet PLEASE SEE ATTACHED FOR DETAILED DIRECTIONS 5 Active benzonatate (TESSALON PERLE) 100 mg capsule TAKE 1 CAPSULE BY MOUTH TWICE A DAY FOR COUGHING Active acetaminophen-code ine (TYLENOL-COD #3) 300-30 mg per tablet TAKE 1-2 TABLETS BY MOUTH EVERY 8 HOURS NEEDED FOR COUGHING Active Encounters Date Type Department Care Team Description 02/20/2025 Telephone Hematology/Oncology [address] [place], [place] [id number] Minerva Lindsay MD Care Coordination 02/19/2025 Telephone Radiation Oncology [address] [place] [address] [place] [address] Williams Gonzalez MD Future Appointment 02/19/2025 Patient Msg Radiation Oncology [address] [place] [address] Williams Gonzalez MD Appointment Cancellation Request 02/19/2025 Patient Msg Radiation Oncology [address] [place] [address] [place] [address] Williams Gonzalez MD Appointment Cancellation Request 02/19/2025 Telephone Hematology/Oncology [address] [place] [address] Minerva Lindsay MD Purse Seining Hand - Other (Office Note) 02/16/2025 2:30 PM EDT Visit (SP) Office Hematology/Oncology [address] [place] [address] Minerva Lindsay MD Malignant neoplasm of unspecified part of unspecified bronchus or lung (HCC); Secondary malignant neoplasm of bone (HCC); Malignant pleural effusion (HCC) 02/16/2025 Travel 02/13/2025 Telephone Radiation Oncology [address] [place] [address] [place] [address] Williams Gonzalez MD Appointment Cancelled 02/12/2025 2:00 PM EDT Office Visit Radiation Oncology [address] [place] [address] [place] [address] Williams Gonzalez MD Malignant neoplasm of unspecified part of unspecified bronchus or lung (HCC) (Primary Dx) 02/12/2025 11:07 AM EDT - 02/12/2025 11:59 PM EDT Hospital Encounter Radiology Pet CT [address] [place] [address] [place] [address] Malignant neoplasm of unspecified part of unspecified bronchus or lung (HCC) [C34.90] Discharge Disposition: Home 02/12/2025 Education Radiation Oncology [address] [place] [address] Malia Oliva RN Patient Education 02/12/2025 Telephone Radiation Oncology [address] [place] [address] Williams Gonzalez MD Appointment 02/12/2025 Travel 02/08/2025 Travel 02/07/2025 Telephone Radiation Oncology [address] [place] [address] Williams Gonzalez MD from Last 3 Months Immunizations Immunization Administration Dates Next Due hepatitis B (HepB) vaccine ( ENGERIX-B, RECOMBIVAX HB) 04/03/1998,10/29/1997,09/28/1997 Family History Medical History Relation Comments Heart disease Father Heart disease Mother Cancer Sister Relation Status Comments Father Mother Sister Alive Social History Tobacco Use Types Packs/Day Years Used Date Smoking Tobacco: Never Passive Smoke Exposure: Past Smokeless Tobacco: Never Tobacco Cessation:Counseling Given: No Alcohol Use Standard Drinks/Week Comments Never 0 (1 standard drink = 0.6 oz pur e alcohol) PHQ-2 Answer Date Recorded PHQ-2 score 1 02/14/2025 Area Deprivation Index Answer Date Marcello rded National Score (1-100), lower number is lower ri sk 63 02/12/2025 State Score (1-10), lower number is lower risk 4 02/12/2025 Data from: https://www.neighborhoodatlas.medicine.[facility].edu/. Last address used for calculation [address] [place] [address] [address] 02/12/2025 Comments No Sex and Gender Information Value Date Recorded Sex Assigned at Not on file Legal Sex Female 9:10 AM EST Gender Identity Not on file Sexual Orientation Not on file Last Filed Vital Signs Vital Sign Reading Time Taken Comments Blood Pressure 122/78 02/16/2025 2:33 PM EDT Pulse 78 02/16/2025 2:33 PM EDT Temperature 36.2 C (97.1 F) 02/16/2025 2:33 PM EDT Respiratory Rate 20 02/16/2025 2:33 PM EDT Oxygen Saturation 98% 02/16/2025 2:33 PM EDT Inhaled Oxygen Concentration - - Weight 55 kg (121 lb 4.1 oz) 02/16/2025 2:33 PM EDT Height 160 cm (5' 3 ) 02/12/2025 12:47 PM EDT Body Mass Index 21.48 02/12/2025 12:47 PM EDT Plan of Treatment Health Maintenance Due Date [...] of 2) 2006 Bone Density Screening 2021 Advance Directive Discussion 07/26/2024 Medicare Advantage Annual Wellness Visit 07/26/2024 Influenza Vaccine (#1) 2025 RSV Vaccine (1 - 1-dose 75+ series) 2031 Procedures Procedure Name Priority Date/Time Associated Diagnosis Comments NM PET/CT SKULL-THIGH SUBSEQUENT Routine 02/12/2025 12:55 PM EDT Malignant neoplasm of unspecified part of unspecified bronchus or lung (HCC) GLUCOSE, BLOOD (POC) Routine 02/12/2025 11:16 AM EDT EXTERNAL LAB 02/07/2025 9:03 AM EDT EXTERNAL IMAGING 02/07/2025 9:03 AM EDT EXTERNAL LAB 02/07/2025 9:03 AM EDT EXTERNAL IMAGING 02/07/2025 9:03 AM EDT EXTERNAL IMAGING 02/07/2025 9:03 AM EDT EXTERNAL IMAGING 02/07/2025 9:03 AM EDT EXTERNAL IMAGING 02/07/2025 9:03 AM EDT EXTERNAL IMAGING 02/06/2025 3:[address] OUTSIDE CD DICOM IMPORT 01/31/2025 CT OUTSIDE CD DICOM IMPORT 01/31/2025 CT OUTSIDE CD DICOM IMPORT 01/31/2025 from Last 3 Months Results * NM PET/CT SKULL-THIGH SUBSEQUENT (02/12/2025 12:55 PM EDT) Anatomical Region Laterality Modality Nuclear Medicine , Nuclear Medicine 02/12/2025 12:5 5 PM EDT Narrative 02/13/2025 9:53 AM EDT * * *Final Report* * * DATE OF EXAM: Feb 12 2025 12:55PM NRN [id number] - NM PET/CT SKULL-THIGH SUBQ / PROCEDURE REASON: Malignant neoplasm of unspecified part of unspecified bronchus or lung (HCC) * * * * Physician Interpretation * * * * RESULT: EXAMINATION: BODY FDG PET-CT CLINICAL HISTORY: 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 Status post systemic chemotherapy/immunotherapy. CT chest 01/31/2025 showed enlarging right superior hilar region. EXAM CATEGORY: Subsequent treatment strategy. TECHNIQUE: Radiopharmaceutical was administered intravenously followed by PET imaging from the eyes to thighs. Free breathing, low dose CT of the same body region was acquired without IV contrast for attenuation correction and anatomic localization. Unenhanced imaging is limited for the evaluation of some pathology and the acquired CT was not designed to produce diagnostic CT scan quality. Physiologic/non-pathologic uptake in some body regions could confound or obscure some pathology. * CT Dose-Length Product (DLP): 140 mGy*cm * CT Dose Reduction Employed: Yes * Blood glucose: 113 mg/dL * Injection site: Right Forearm-Antecubital * Injected activity: 7.1 mCi * Uptake Time: 59 minutes * Radiopharmaceutical: [id number] (FDG) COMPARISON: Outside FDG PET/CT 11/13/2024, 03/06/2024 CORRELATION: CT 01/31/2025 RESULT: REFERENCES: FDG uptake is used as a surrogate marker for glucose metabolism. All reported standardized uptake values represent maximum SUV (SUVmax) per body weight, unless otherwise specified. SUV reference values, as follows: * Blood Pool (Descending Aorta): SUVmax 2.7 * Background Liver: SUVmax 3.2; SUVmean 2.1 Localizer Images: No additional findings. HEAD AND NECK: Aerodigestive Tract: No radiotracer avid lesion. Lymph Nodes: No radiotracer avid lymphadenopathy. Neck Soft Tissues: Marked enlargement and hypermetabolism of the thyroid gland (Max SUV 6.9), similar to priors and corresponding with known hypothyroidism. CHEST: Lungs & Pleura: -Enlargement of 6 cm right upper lobe consolidative opacity with patchy hypermetabolism (Max SUV 5.9), which is confluent with the right hilar hypermetabolic lymphadenopathy (Max SUV 8.5). -New moderate right pleural effusion with near complete collapse of the right lower lobe and atelectasis within the dependent right upper and middle lobes. No associated hypermetabolism within the effusion or along the right pleural margins. -Additional scattered right pulmonary nodules, for example 7 mm right middle lobe nodule, below the resolution of PET and new from 11/13/2024. -1.1 cm part solid opacity within the superior segment of the left lower lobe (Max SUV 0.8), present on exams dating back to 03/06/2024 and presumed additional lesion along the adenocarcinoma spectrum. Lymph Nodes: Right hilar metastatic lymphadenopathy, conglomerative with the right upper lobe mass. Additional mildly hypermetabolic subcarinal nodes (Max SUV 3.9), new/increased from prior. Mediastinum: No radiotracer avid mass. Cardiovascular: Blood pool activity. No pericardial effusion. Chest Wall: No radiotracer avid soft tissue lesion. Right chest port terminates in the lower SVC. ABDOMEN AND PELVIS: Hepatobiliary: No radiotracer avid lesion. No measurable mass. Spleen: No radiotracer avid lesion. No splenomegaly. Pancreas: No radiotracer avid lesion. Adrenals: No radiotracer avid nodule. Urinary Tract: Physiologic radiotracer excretion in the renal collecting systems and urinary bladder. No hydronephrosis. GI Tract: No radiotracer avid lesion. No bowel dilation. Peritoneum: No radiotracer avid lesion. No ascites. Lymph Nodes: Few subcentimeter hypermetabolic aortocaval nodes, new (Max SUV 3.2). Vasculature: Blood pool activity. Vascular calcifications without an abdominal aortic aneurysm. Pelvic Organs: No radiotracer avid lesion. MUSCULOSKELETAL: Bones: Numerous new and enlarging hypermetabolic osseous metastases. Lesions with potentially increased clinical significance are as follows: -Expansile left lateral second rib metastasis with underlying bony irregularity, though without visualized pathologic fracture (Max SUV 4.3, previously 3.1). -L1 posterior mid vertebral body (Max SUV 6.1), new. -Bilateral proximal/mid femurs (Max SUV 4 on the right and 7.3 on the left), previously the right was not hypermetabolic in the left was not included in the [id number]. -Additional non FDG avid sclerotic foci, presumed previously treated metastases. Soft Tissues: No radiotracer avid lesion. IMPRESSION Since 11/13/2024, PRIMARY AND JUAREZ DISEASE SITE: * Enlarging right upper lobe hypermetabolic mass with conglomerative right hilar metastatic lymphadenopathy. * Additional new/enlarging subcarinal metastatic nodes. METASTATIC DISEASE: * New and enlarging sclerotic osseous metastases. * New suspicious subcentimeter hypermetabolic retroperitoneal lymph nodes. ADDITIONAL FINDINGS: * New moderate right pleural effusion without associated hypermetabolism. Subtotal collapse of the right lower lobe. * Stable 1.2 cm left lower lobe part solid nodule with low level hypermetabolism, presumed additional lesion along the adenocarcinoma spectrum. Transcribe Date/Time: Feb 13 2025 8:29A Dictated by: LORENZO SHEETS MD This examination was interpreted and the report reviewed and electronically signed by: LORENZO SHEETS MD on Feb 13 2025 9:50AM EST Thank you for allowing us to participate in the care of your patient. Should there be any questions regarding this interpretation, please call [phone]. If you are unable to reach us at the number above, please feel free to contact [facility] at [phone]. 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 Status post systemic chemotherapy/immunotherapy. CT chest 01/31/2025 showed enlarging right superior hilar region. EXAM CATEGORY: Subsequent treatment strategy. TECHNIQUE: Radiopharmaceutical was administered intravenously followed by PET imaging from the eyes to thighs. Free breathing, low dose CT of the same body region was acquired without IV contrast for attenuation correction and anatomic localization. Unenhanced imaging is limited for the evaluation of some pathology and the acquired CT was not designed to produce diagnostic CT scan quality. Physiologic/non-pathologic uptake in some body regions could confound or obscure some pathology. * CT Dose-Length Product (DLP): 140 mGy*cm * CT Dose Reduction Employed: Yes * Blood glucose: 113 mg/dL * Injection site: Right Forearm-Antecubital * Injected activity: 7.1 mCi * Uptake Time: 59 minutes * Radiopharmaceutical: [id number] (FDG) COMPARISON: Outside FDG PET/CT 11/13/2024, 03/06/2024 CORRELATION: CT 01/31/2025 RESULT: REFERENCES: FDG uptake is used as a surrogate marker for glucose metabolism. All reported standardized uptake values represent maximum SUV (SUVmax) per body weight, unless otherwise specified. SUV reference values, as follows: * Blood Pool (Descending Aorta): SUVmax 2.7 * Background Liver: SUVmax 3.2; SUVmean 2.1 Localizer Images: No additional findings. HEAD AND NECK: Aerodigestive Tract: No radiotracer avid lesion. Lymph Nodes: No radiotracer avid lymphadenopathy. Neck Soft Tissues: Marked enlargement and hypermetabolism of the thyroid gland (Max SUV 6.9), similar to priors and corresponding with known hypothyroidism. CHEST: Lungs & Pleura: -Enlargement of 6 cm right upper lobe consolidative opacity with patchy hypermetabolism (Max SUV 5.9), which is confluent with the right hilar hypermetabolic lymphadenopathy (Max SUV 8.5). -New moderate right pleural effusion with near complete collapse of the right lower lobe and atelectasis within the dependent right upper and middle lobes. No associated hypermetabolism within the effusion or along the right pleural margins. -Additional scattered right pulmonary nodules, for example 7 mm right middle lobe nodule, below the resolution of PET and new from 11/13/2024. -1.1 cm part solid opacity within the superior segment of the left lower lobe (Max SUV 0.8), present on exams dating back to 03/06/2024 and presumed additional lesion along the adenocarcinoma spectrum. Lymph Nodes: Right hilar metastatic lymphadenopathy, conglomerative with the right upper lobe mass. Additional mildly hypermetabolic subcarinal nodes (Max SUV 3.9), new/increased from prior. Mediastinum: No radiotracer avid mass. Cardiovascular: Blood pool activity. No pericardial effusion. Chest Wall: No radiotracer avid soft tissue lesion. Right chest port terminates in the lower SVC. ABDOMEN AND PELVIS: Hepatobiliary: No radiotracer avid lesion. No measurable mass. Spleen: No radiotracer avid lesion. No splenomegaly. Pancreas: No radiotracer avid lesion. Adrenals: No radiotracer avid nodule. Urinary Tract: Physiologic radiotracer excretion in the renal collecting systems and urinary bladder. No hydronephrosis. GI Tract: No radiotracer avid lesion. No bowel dilation. Peritoneum: No radiotracer avid lesion. No ascites. Lymph Nodes: Few subcentimeter hypermetabolic aortocaval nodes, new (Max SUV 3.2). Vasculature: Blood pool activity. Vascular calcifications without an abdominal aortic aneurysm. Pelvic Organs: No radiotracer avid lesion. MUSCULOSKELETAL: Bones: Numerous new and enlarging hypermetabolic osseous metastases. Lesions with potentially increased clinical significance are as follows: -Expansile left lateral second rib metastasis with underlying bony irregularity, though without visualized pathologic fracture (Max SUV 4.3, previously 3.1). -L1 posterior mid vertebral body (Max SUV 6.1), new. -Bilateral proximal/mid femurs (Max SUV 4 on the right and 7.3 on the left), previously the right was not hypermetabolic in the left was not included in the [id number]. -Additional non FDG avid sclerotic foci, presumed previously treated metastases. Soft Tissues: No radiotracer avid lesion. IMPRESSION Since 11/13/2024, PRIMARY AND JUAREZ DISEASE SITE: * Enlarging right upper lobe hypermetabolic mass with conglomerative right hilar metastatic lymphadenopathy. * Additional new/enlarging subcarinal metastatic nodes. METASTATIC DISEASE: * New and enlarging sclerotic osseous metastases. * New suspicious subcentimeter hypermetabolic retroperitoneal lymph nodes. ADDITIONAL FINDINGS: * New moderate right pleural effusion without associated hypermetabolism. Subtotal collapse of the right lower lobe. * Stable 1.2 cm left lower lobe part solid nodule with low level hypermetabolism, presumed additional lesion along the adenocarcinoma spectrum. Transcribe Date/Time: Feb 13 2025 8:29A Dictated by: LORENZO SHEETS MD This examination was interpreted and the report reviewed and electronically signed by: LORENZO SHEETS MD on Feb 13 2025 9:50AM EST Thank you for allowing us to participate in the care of your patient. Should there be any questions regarding this interpretation, please call [phone]. If you are unable to reach us at the number above, please feel free to contact [facility] at [phone]. [facility] Tray Gonzalez MD NM-PAMA Final Resul t * (ABNORMAL) GLUCOSE, BLOOD (POC) (02/12/2025 11:16 AM EDT) Pathologist [facility] Glucose, Point of Care 113(A) 74 - 99 mg/dL [facility] Comment: Location:[facility], [address] [place] [address] , [place], [place], [address] The Accu-Chek Inform II glucose meter has not been approved for testing on patients receiving intensive medical intervention or therapy and results from this point of care glucose test should not be used for patient management decisions in these cases. Inaccurate results may also occur from other interfering factors, such as N-acetylcysteine (blood concentrations of greater than 5mg/dL), galactose, extremes of hematocrit (<10 or >65), or high doses of ascorbic acid (vitamin C) greater than 3mg/dL. Consider alternate testing mechanisms (e.g. core lab, blood gas instrument) in the above situations. 02/12/2025 11:1 6 AM EDT us [facility] Provider POC TESTING Final Result [facility] POINT OF CARE [facility] [address] [place], [place] * EXTERNAL LAB (02/07/2025 9:03 AM EDT) Only the most recent of2 resultswithin the time period is included. us External Provider PA-C LABORATORY Final Res ult * EXTERNAL IMAGING (02/07/2025 9:03 AM EDT) Anatomical Region Laterality Modality Other us External Provider PA-C RADIOLOGY Final Res ult * EXTERNAL IMAGING (02/07/2025 9:03 AM EDT) Anatomical Region Laterality Modality Other us External Provider PA-C RADIOLOGY Final Res ult * EXTERNAL IMAGING (02/07/2025 9:03 AM EDT) Anatomical Region Laterality Modality Other us External Provider PA-C RADIOLOGY Final Res ult * EXTERNAL IMAGING (02/07/2025 9:03 AM EDT) Anatomical Region Laterality Modality Other us External Provider PA-C RADIOLOGY Final Res ult * EXTERNAL IMAGING (02/07/2025 9:03 AM EDT) Anatomical Region Laterality Modality Other us External Provider PA-C RADIOLOGY Final Res ult * EXTERNAL IMAGING (02/06/2025 3:51 PM EDT) Anatomical Region Laterality Modality Other us External Provider PA-C RADIOLOGY Final Res ult * CT-CT ABDOMEN PELVIS WO CON IMPORT (01/31/2025) Anatomical Region Laterality Modality Other 01/31/2025 Narrative 02/12/2025 2:03 PM EDT Images were obtained outside of [facility] Procedure Note Provider, [facility] [place] - 02/12/2025 Images were obtained outside of [facility] Provider RADIOLOGY Final Result * CT-CT ABDOMEN PELVIS WO CON IMPORT (01/31/2025) Anatomical Region Laterality Modality Other 01/31/2025 Narrative 02/07/2025 9:57 AM EDT Images were obtained outside of [facility] Procedure Note Provider, [facility] [place] - 02/07/2025 Images were obtained outside of [facility] Cc Provider RADIOLOGY Final Result * CT-CT CHEST WO CON IMPORT (01/31/2025) Anatomical Region Laterality Modality Other 01/31/2025 Narrative 02/07/2025 9:57 AM EDT Images were obtained outside of [facility] Procedure Note Provider, [facility] [place] - 02/07/2025 Images were obtained outside of [facility] Cc Provider RADIOLOGY Final Result from Last 3 Months Insurance [address] [place] [address] [employer] Care Teams Family Support Coordinator Relationship Specialty Start Date End Date Mark Baker MD [address] [place] [address] PCP - General Family Medicine 03/02/24 Kristi Chester MD [address] [place] [address] Referring Hematology/Oncology 08/15/24 Sarah Elkins, RN Specialty Purse Seining Hand Hematology/Oncology 10/26/24 Ana Magallon, PALMA Specialty Purse Seining Hand Hematology/Oncology 10/26/24
--- OUTSIDE RECORDS SUMMARY | 2025-03-27 09:24 | XMS_ITS | Encounter Summary ---
Author Organization [facility] Address [address] [place] [address] Care Team Providers Care Pants Closer Name Role Phone Mark Baker MD Primary Care Provider [phone] Kristi Chester MD Unavailable [phone] Sarah Elkins RN Unavailable Unavailable Ana Magallon RN Unavailable Unavailable Source Comments In the event this information is protected by the Federal Confidentiality of Alcohol and Drug AbusePatient Records regulations: The Federal rules restrict any use of the information to criminally investigate or prosecute any alcohol or drug abuse patient.[facility] Reason for Visit * Reason Comments City Distribution Clerk - Other Office Note Encounter Details Date Type Department Care Team (Late st Contact Info) Description 02/19/2025 Telephone Hematology/Oncology [address] [place] [address] [place] [phone] [place] [address] City Distribution Clerk - Other (Office Note) Social History Tobacco Use Types Packs/Day Years [...] is lower risk 4 02/12/2025 Data from: https://www.neighborhoodatlas.medicine.[facility].edu/. Last address used for calculation [address] [place] [address] [address] 02/12/2025 Comments No Sex and Gender Information Value Date Recorded Sex Assigned at Not on file Legal Sex Female 9:10 AM EST Gender Identity Not on file Sexual Orientation Not on file documented as of this encounter Miscellaneous Notes * Telephone Encounter - Tatiana Sow - 02/19/2025 9:22 AM EDT Isela Renner('s) Dr. Chester's Office is calling Minerva Lindsay MD today regarding City Distribution Clerk - Other (Office Note) Dr. Chester's office called requesting the office note of 02/16/2025. Informed them that it has not been signed and once signed, I would fax it over. Note to be faxed to [phone]. Patient has been identified by name and birthdate. Requesting response back: N/A [phone] (home) [phone] (cell) Tatiana Sow February 19, 2025 documented in this encounter Plan of Treatment Not on file documented as of this encounter Visit Diagnoses Not on filedocumented in this encounter Care Teams Pants Closer Relationship Specialty Start Date End Date Mark Baker MD [address] [place] [address] PCP - General Family Medicine 03/02/24 Kristi Chester MD [address] [place] [address] Referring Hematology/Oncology 08/15/24 Sarah Elkins, RN Specialty City Distribution Clerk Hematology/Oncology 10/26/24 Ana Magallon, RN Specialty City Distribution Clerk Hematology/Oncology 10/26/24 documented as of this encounter
--- OUTSIDE RECORDS SUMMARY | 2025-03-27 09:45 | XMS_ITS | CCD ---
Author Organization [facility] Care Team Providers Care Lease Analyst Name Role Phone DR BRENDA DONG Primary [...] Attending Unavailable ROM MELTON Referring Unavailable Brenda Dong MD Primary Care Provider [phone] Brenda Dong Primary Care Physician [phone] Samsa - TBHVj Admitting Unavailable Samsa - TBHVj Attending Unavailable Rajat Chesterorva Attending Unavailable Nemo Kristi Admitting Unavailable Kristi Chester MD Attending Provider Kristi Chester MD Unavailable Bhupendra ROLLINS Attending Unavailable NILBhupendra Lassiter Attending Unavailable NILBhupendra Lassiter Attending Unavailable NEMO KRISTI Attending Unavailable NEMO, KRISTI Referring Unavailable BRENDA DONG Primary Care Unavailable MOOKIE POWELL Admitting Unavailable Kristi Chester MD Attending Provider [phone] Sarah Elkins RN Unavailable Unavailable Naun WALDROP, Ana Unavailable Unavailable Brenda Dong MD Primary Care Provider [phone] Daniella Diego MD Attending Provider MINERVA LINDSAY Attending Unavailable BRENDA DONG M Primary Care Unavailable BRENDA DONG M Primary Care Unavailable Williams APPLE Referring Unavailable TESFAYEBRENDA Garibay M Primary Care Unavailable MINERVA LINDSAY Attending Unavailable KRISTI CHESTER Referring Unavailable MINERVA LINDSAY Attending Unavailable BRENDA DONG M Primary Care Unavailable TESFAYEBRENDA Garibay M Primary Care Unavailable Williams APPLE Referring Unavailable Williams APPLE Attending Unavailable BRENDA DONG M Primary Care Unavailable Williams APPLE Referring Unavailable Allergies Allergy Classification Reported Allergen(s) Allergy Type Date of Onset Reaction(s) Facility (1 source) ALLERGIES NOT ON FILE; Translations: [ALLERGIES NOT ON FILE] Propensity to adverse reactions (disorder) [facility] Repository (1 source) No Known Medication Allergies; Translations: [No Known Medication Allergies] Propensity to adverse reactions (disorder) [facility] Repository Medications Current Medications Medication Drug Class(es) Dates Sig (Normalized) Sig (Original) apixaban 2.5 mg oral tablet (3 sources) Factor Xa Inhibitor Start: 01-25-2025 take 1 tablet by mouth twice daily Apixaban (Eliquis) 2.5 mg tablet Active 2.5 MG PO Twice daily January 25, 2025 12:00am Complies with drug therapy Start: 10-09-2024 End: 01-25-2025 take 1 tablet by mouth twice daily Apixaban (Eliquis) 5 mg tablet Discontinued 5 MG PO Twice daily October 09, 2024 12:00am January 25, 2025 3:24pm benzonatate 100 mg oral capsule (7 sources) Non-narcotic Antitussive Start: 02-06-2025 take 1 capsule by mouth twice daily benzonatate (TESSALON PERLE) 100 mg capsule TAKE 1 CAPSULE BY MOUTH TWICE A DAY FOR COUGHING 02/06/2025 Active citalopram 10 mg oral tablet (8 sources) Serotonin Reuptake Inhibitor Start: 01-25-2025 take 1 tablet by mouth once daily Citalopram 10 mg tablet Active 10 MG PO Daily January 25, 2025 12:00am Complies with drug therapy dexamethasone 2 mg oral tablet (4 sources) Corticosteroid Start: 07-05-2024 End: 01-25-2025 take 1 tablet by mouth once daily as needed Dexamethasone 2 mg tablet Active 2 MG PO Daily as needed January 25, 2025 3:22pm Complies with drug therapy ibuprofen 600 mg oral tablet (14 sources) Nonsteroidal Anti-inflammatory Drug Start: 06-13-2024 take 1 tablet by mouth every twelve hours as needed ibuprofen (MOTRIN) 600 mg tablet Take 600 mg by mouth two times a day as needed for pain. 06/13/2024 Active levothyroxine sodium 0.075 mg oral tablet (16 sources) l-Thyroxine Start: 08-30-2024 take 1 tablet by mouth once daily levothyroxine 75 mcg (0.075 mg) Tab 75 mcg = 1 tab(s), Oral, Daily, Refills(s) 0 Start Date: 08/30/24 Status: Ordered Start: 08-03-2024 take 1 tablet by alexander th once daily levothyroxine (SYNTHROID) 75 mcg tablet Take 75 mcg by mouth once daily. 08/03/2024 Active magnesium oxide 400 mg oral capsule (19 sources) Start: 08-30-2024 take 2 tablets by mouth once daily magnesium oxide 400 mg Tab 800 mg = 2 tab(s), Oral, Daily, Refills(s) 0 Start Date: 08/30/24 Status: Ordered Start: 08-04-2024 take 1 capsule by mo [facility] twice daily magnesium oxide 400 mg magnesium cap Take 400 mg by mouth two times a day. 08/04/2024 Active Start: 08-03-2024 End: 01-25-2025 take 1 tablet by mouth twice daily Magnesium Oxide 250 mg magnesium tablet Discontinued 250 MG PO Twice daily August 03, 2024 1:00am January 25, 2025 3:24pm metoprolol tartrate 50 mg oral tablet (20 sources) beta-Adrenergic Inez Start: 01-25-2025 take 2 tablets by mouth twice daily Metoprolol Tartrate 50 mg tablet Active 100 MG PO Twice daily January 25, 2025 3:23pm Complies with drug therapy Start: 01-25-2025 take 1 tablet by alexander twice daily Metoprolol Tartrate 100 mg tablet Active 100 MG PO Twice daily January 25, 2025 12:00am Complies with drug therapy Start: 08-02-2024 End: 01-25-2025 take 1 tablet by mouth twice daily metoprolol tartrate, short acting, (LOPRESSOR) 50 mg tablet Take 50 mg by mouth two times a day. 08/02/2024 Active mirtazapine 15 mg oral tablet (1 source) Start: 01-25-2025 take 1 tablet by mouth once daily at bedtime Mirtazapine 15 mg tablet Active 15 MG PO Daily at bedtime January 25, 2025 12:00am Complies with drug therapy Multivitamin preparation (1 source) Start: 05-18-2024 take 1 tablet by mouth once daily multivitamin 1 tab(s), Oral, Daily, Refill(s) 0 Start Date: 05/18/24 Status: Ordered multivitamin tablet (14 sources) take 1 tablet by mouth once daily in the morning multivitamin tablet Take 1 tablet by mouth every morning. Active ondansetron 4 mg disintegrating oral tablet (19 sources) Serotonin-3 Receptor Antagonist Start: 07-05-2024 take 1 tablet by mouth twice daily as needed Ondansetron 4 mg tablet,disintegrat ing Active 4 MG PO Twice daily as needed July 05, 2024 1:00am Complies with drug therapy Start: 05-25-2024 take 1 tablet by alexander th every eight hours as needed ondansetron orally disintegrating (ZOFRAN ODT) 4 mg disintegrating tablet Take 4 mg by mouth every 8 hours as needed for nausea/vomiting. 05/25/2024 Active potassium chloride 20 meq extended release oral tablet (17 sources) Start: 07-05-2024 take 1 tablet by mouth once potassium chloride 20 mEq TbER Take 1 tablet by mouth every afternoon. 07/11/2024 Active predniSONE 10 mg oral tablet (10 sources) Start: 02-06-2025 predniSONE (DE LTASONE) 10 mg tablet PLEASE SEE ATTACHED FOR DETAILED DIRECTIONS 02/06/2025 Active Start: 08-03-2024 End: 01-25-2025 Prednisone 10 mg tablet Disc ontinued 10 MG PO As Directed August 03, 2024 1:00am January 25, 2025 3:23pm see taper instructions prochlorperazine 10 mg oral tablet (19 sources) Phenothiazine Start: 04-20-2024 take 1 tablet by mouth every eight hours as needed prochlorperazine (COMPAZINE) 10 mg tablet Take 10 mg by mouth every 8 hours as needed for nausea/vomiting. 04/20/2024 Active Start: 04-20-2024 End: 01-25-2025 take 1 tablet by mouth twice daily as needed Prochlorperazine Maleate (Compazine) 10 mg tablet Discontinued 10 MG PO Twice daily as needed August 03, 2024 1:00am January 25, 2025 3:23pm Completed/Discontinued Medications Medication Drug Class(es) Dates Sig (Normalized) Sig (Original) acetaminophen 300 mg / codeine phosphate 30 mg oral tablet (12 sources) Opioid Agonist Start: 07-05-2024 End: 10-09-2024 [...] 72 hr fentaNYL 0.025 mg/hr transdermal system (15 sources) Opioid Agonist Start: 07-05-2024 End: 02-13-2025 Fentanyl 25 mcg/hr patch 72 hour Discontinued 1 PATCH TRANSDERML Every 72 hours July 05, 2024 1:00am January 25, 2025 3:22pm Start: 05-18-2024 fentaNYL 25 mc g/hr Transderm ER Film 1 patch(es), Topical, q72hr, Refill(s) 0 Start Date: 05/18/24 Status: Ordered Problems Problem Classification Problem Date Documented Date Episodic/Chronic Acute and unspecified renal failure (7 sources) Acute renal failure syndrome; Translations: [Acute kidney failure, unspecified] Onset: 09-13-2024 07-05-2024 Episodic Cancer of bronchus; lung (19 sources) Malignant neoplasm of unspecified part of unspecified bronchus or lung; Translations: [Malignant neoplasm of upper lobe, bronchus or lung] Onset: 04-06-2024 Chronic Cancer; other respiratory and intrathoracic (1 source) Malignant neoplasm of lower respiratory tract 02-07-2025 Chronic Chronic kidney disease (1 source) Chronic kidney disease stage 3; Translations: [Stage 3 chronic kidney disease] 01-25-2025 Chronic Coagulation and hemorrhagic disorders (2 sources) Acquired thrombocytopenia 05-18-2024 Chronic Deficiency and other anemia (2 sources) Anemia of chronic disease; Translations: [Anemia in other chronic diseases classified elsewhere] 10-11-2024 Chronic Diseases of white blood cells (2 sources) Neutropenia 05-18-2024 Chronic Fluid and electrolyte disorders (7 sources) Hypokalemia; Translations: [Hypokalemia] 07-05-2024 Episodic Lymphadenitis [...] Device in situ 08-30-2024 Episodic Secondary malignancies (3 sources) Secondary malignant neoplasm of bone; Translations: [Secondary malignant neoplasm of bone] 05-18-2024 Chronic Secondary malignancies (1 source) Malignant pleural effusion; Translations: [Malignant pleural effusion] 02-20-2025 Chronic Superficial injury; contusion (4 sources) Contusion of left knee, sequela; Translations: [CONTUSION OF LEFT KNEE SEQUELA] Onset: 08-08-2021 Episodic Unclassified (1 source) Established Patient Onset: 11-15-2024 Results Test Name Value Interpretation Reference Range Facility Gerri 02-20-2025 [facility] Telephone (HEMACA) -------- ISELA DE LA ROSA ([id number]) 1955 F Date Time Provider Department 02/20/25 MINERVA LINDSAY During your visit today, we recorded the following information about you: Tatiana Sow 02/20/2025 9:29 AM Signed Isela De La Rosa('s) Dr. Chester is calling Minerva Lindsay MD today regarding Clinical Administrator - Other (Discuss Patient) Dr. Chester would like a call back to discuss patient. Patient has been identified by name and birthdate. Requesting response back: [phone] (home) [phone] (cell) Tatiana Juanjose February 20, 2025 Ana Riojas RN 02/20/2025 9:38 AM Addendum Returned call and identified self by name and title. Called Dr. Chester. States that Isela is in his office and he would like to discuss her treatment plan. Message sent to Dr. Lindsay. Dr. Lindsay will call Dr. Chester to discuss. Ana Riojas, MSN, RN Specialty Clinical Administrator February 20, 2025 Allergies As of Date: 02/20/2025 (No Known Allergies) Date Reviewed: 02/16/2025 Reviewed by: Dashawn Chen LPN - Fully Assessed Reason for Visit: Care Coordination [3491] Prescriptions as of 02/20/2025 - citalopram hydrobromide (CELEXA) 10 mg tablet Take 10 mg by mouth once daily. - predniSONE (DELTASONE) 10 mg tablet PLEASE SEE ATTACHED FOR DETAILED DIRECTIONS - benzonatate (TESSALON PERLE) 100 mg capsule TAKE 1 CAPSULE BY MOUTH TWICE A DAY FOR COUGHING - acetaminophen-codeine (TYLENOL-COD #3) 300-30 mg per tablet TAKE 1-2 TABLETS BY MOUTH EVERY 8 HOURS NEEDED FOR COUGHING - ibuprofen (MOTRIN) 600 mg tablet Take [...] for nausea/vomiting. Problem List As Of Date: 02/20/2025 (None) Encounter Status:Closed by [facility] Telephone (RADTSA) -------- ISELA DE LA ROSA ([id number]) 1955 F Date Time Provider Department 02/19/25 Williams APPLE During your visit today, we recorded the following information about you: Daria Wilkins RN 02/19/2025 3:36 PM Signed Call placed to pt due to cancelling appts for simulation tomorrow thru [facility]. Pt states after seeing medical oncology at [facility], she found out things had spread and were a lot worse. She does not plan to do radiation at this time. She has an appt scheduled with DR Chester on 02/20. She does not wish to reschedule and will let us know if she needs anything in the future. PSS/Rad Therapy, please cancel appts. PALMA Martinez Courtney, RT(R) 02/19/2025 3:45 PM Signed Sim canceled. Daria Wilkins RN 02/19/2025 4:20 PM Signed Note also routed to Dr Chester's office to update them that appts had been cancelled. Daria Wilkins RN Allergies As of Date: 02/19/2025 (No Known Allergies) Date Reviewed: 02/16/2025 Reviewed by: Dashawn Chen LPN - Fully Assessed Reason for Visit: Future Appointment [256] Prescriptions as of 02/21/2025 - citalopram hydrobromide (CELEXA) 10 mg tablet Take 10 mg by mouth once daily. - predniSONE (DELTASONE) 10 mg tablet PLEASE SEE ATTACHED FOR DETAILED DIRECTIONS - benzonatate (TESSALON PERLE) 100 mg capsule TAKE 1 CAPSULE BY MOUTH TWICE A DAY FOR COUGHING - acetaminophen-codeine (TYLENOL-COD #3) 300-30 mg per tablet TAKE 1-2 TABLETS BY MOUTH EVERY 8 HOURS NEEDED FOR COUGHING - ibuprofen (MOTRIN) 600 mg tablet Take [...] for nausea/vomiting. Problem List As Of Date: 02/19/2025 (None) Encounter Status:Closed by DARIA WILKINS on 02/21/25 [facility] CNOVSPon 02-16-2025 CNOVSP Visit (SP) Office (HEMAMN) -------- ISELA DE LA ROSA ([id number]) 1955 F Date Time Provider Department 02/16/25 2:30 PM MINERVA LINDSAY During your visit today, we recorded the following information about you: Temperature Pulse Respiration Blood pressure 97.1 degrees 78/minute 20/minute 122/78 Weight 55 kg Dashawn Chen LPN 02/20/2025 11:55 AM Signed Additional intake questions: Has the patient had fever, nausea, vomiting, diarrhea, constipation, fatigue for > 1 week? Yes, fatigue Does the patient have a decreased appetite? Yes Does patient want to see a Industrial Hygiene Engineer? No (yes to any of above refer patient to schedulers for dietitian appointment) ) Does patient have any new or increased numbness or tingling of extremities? No Is patient interested in fertility information? No Does patient need any prescription refills? No Does patient have an advanced directive in place? No, Patient referred to Resource Center Electronically Signed By: AIDA Sweeney Khaled, MD 02/20/2025 11:55 AM Signed THORACIC ONCOLOGY RETURN VISIT (Elements copied from my note dated November 15, have been reviewed and updated where appropriate, and all reflect current assessment and medical decision making from today's encounter, February 16, 2025) ASSESSMENT: [id number], stage IVB NSCLC adenocarcinoma. PD-L 13% Molec negative. Status post 4 cycles of carboplatin pemetrexed and pembrolizumab. Treatment held due to renal failure. TREATMENT: carboplatin pemetrexed and pembrolizumab. 04/18-07/11/2024 Pemetrexed 08/29/24 and 10/03/2024 PLAN: Based on current PET scan, there is evidence of disease progression. Would recommend to proceed with chemoimmunotherapy combination utilizing carbotaxol pembrolizumab or carbotaxol ipi/nivo. Alternatively, second line treatment with docetaxel and ramucirumab would be appropriate. Using paclitaxel in lieu of pemetrexed based on pathology report showing tubular injury secondary to pemetrexed rather than immune mediated. HPI: Isela De La Rosa presents to [facility] today for thoracic oncology evaluation. She is [...] Right right arm TOTAL ABDOM HYSTERECTOMY MEDICATIONS: citalopram hydrobromide (CELEXA) 10 mg tablet Take 10 mg by mouth once daily. predniSONE (DELTASONE) 10 mg tablet PLEASE SEE ATTACHED FOR DETAILED DIRECTIONS benzonatate (TESSALON PERLE) 100 mg capsule TAKE 1 CAPSULE BY MOUTH TWICE A DAY FOR COUGHING acetaminophen-codeine (TYLENOL-COD #3) 300-30 mg per tablet TAKE 1-2 TABLETS BY MOUTH EVERY 8 HOURS NEEDED FOR COUGHING ibuprofen (MOTRIN) 600 mg tablet Take 600 [...] for nausea/vomiting. ALLERGIES: ALLERGIES No Known Allergies FAMILY HISTORY Problem Relation Age of Onset Heart disease Mother Heart disease Father Cancer Sister Social History Tobacco Use Smoking status: Never Passive exposure: Past Smokeless tobacco: Never Substance Use Topics Alcohol use: Never Drug use: Never REVIEW OF SYSTEMS GENERAL: No fevers, chills, or nightsweats HEENT: No difficulty swallowing, ringing in the ears, nor blurry vision HEMATOLOGY/LYMPHOLOGY (more content not included)... Normal [facility] CNPNon 02-13-2025 CNPN Telephone (RADTSA) -------- ISELA DE LA ROSA ([id number]) 1955 F Date Time Provider Department 02/13/25 Williams APPLE During your visit today, we recorded the following information about you: Daria Wilkins RN 02/13/2025 9:04 AM Signed Pt called in stating she isnt feeling well today and wants to reschedule her SIM. She reports having nausea and feeling like she would like to wait until after Wednesday for Simulation when she sees Medical oncology at [facility]. DEANNA- FYI PSS/Rad Therapy- please coordinate reschedule for early next week. Thank you PALMA Martinez Courtney, RT(R) 02/13/2025 9:21 AM Signed Sim cancelled for today and rescheduled for Wednesday02/20/25 at 2:45 Please reschedule pre sim consent for 2:15 on 02/20 and notify patient of new appointments Shirley Olvera, RT(R)(Oswaldo) Andria Barrera 02/13/2025 10:36 AM Signed Spoke to Isela, Confirmed Sim change to 02/20 at 215 Allergies As of Date: 02/13/2025 (No Known Allergies) Date Reviewed: 02/12/2025 Reviewed by: Maira Rogers MA - Fully Assessed Reason for Visit: Appointment Cancelled [1023] Prescriptions as of 02/13/2025 - citalopram hydrobromide (CELEXA) 10 mg tablet Take 10 mg by mouth once daily. - predniSONE (DELTASONE) 10 mg tablet PLEASE SEE ATTACHED FOR DETAILED DIRECTIONS - benzonatate (TESSALON PERLE) 100 mg capsule TAKE 1 CAPSULE BY MOUTH TWICE A DAY FOR COUGHING - acetaminophen-codeine (TYLENOL-COD #3) 300-30 mg per tablet TAKE 1-2 TABLETS BY MOUTH EVERY 8 HOURS NEEDED FOR COUGHING - ibuprofen (MOTRIN) 600 mg tablet Take [...] for nausea/vomiting. Problem List As Of Date: 02/13/2025 (None) Encounter Status:Closed by DARIA WILKINS on 02/13/25 [facility] Александр 02-12-2025 CNOV Office Visit (ANITSA ) -------- ESTRELLAISELA SUMMERS ([id number]) 1955 F Date Time Provider Department 02/12/25 2:00 PM Williams APPLE During your visit today, we recorded the following information about you: Temperature Pulse Respiration Blood pressure 97.1 degrees 69/minute 16/minute 123/84 Weight Height 53.3 kg 1.6 m Williams Apple MD 02/13/2025 9:16 AM Signed Radiation Oncology - New Patient/Consult Note PATIENT NAME: Isela De La Rosa PATIENT REQUESTING PROVIDER: Dr. Chester DIAGNOSIS: 69 year old female with lung cancer, non-small cell carcinoma, [id number], stage IVB adenocarcinoma. PD-L 13% Molec negative HPI: 69 year old female who presents with above diagnosis, for an opinion regarding the role of radiation therapy in the management of the patient's disease. Final recommendations will be communicated back to the requesting physician by way of the shared medical record, or letter to requesting physician via US mail. Patient initially presented last January with persistent cough. She underwent evaluation including CT chest which demonstrated a 6.2 cm right upper lobe mass as well as mediastinal and hilar adenopathy. She underwent bronchoscopy with biopsy, pathology showing adenocarcinoma. Tumor was positive for cytokeratin 7 and Napsin; negative for cytokeratin 20 and p40. Guardant testing was positive for p53 mutation and RAF1 mutation. PD-L1 was 13%. She underwent staging including PET/CT 03/06/2024 demonstrating: Increased uptake within the right upper lobe mass as well as supraclavicular mediastinal and right hilar adenopathy. Multifocal bony metastasis also described as well as a liver metastasis. She initiated systemic chemotherapy in March consisting of carboplatin pemetrexed pembrolizumab . She received 4 cycles through September 2024. However she developed renal insufficiency. PET scan 11/13/2024 noted significant improvement including within the primary right upper lobe lesion and overall improvement in the skeletal areas of uptake previously described. Due to renal concerns treatment was held. After workup as well as her renal insufficiency was due to pemetrexed as opposed to immune mediated. She has had recent increased cough and dysnea without cp or hemoptysis. She underwent CT chest on 01/31/2025 demonstrating enlarging masslike area right suprahilar region which could be progression or postobstructive consolidation and/or worsening of patient's known neoplasm. Focused ROS: Fatigue: mild Weight loss: None Appetite: fair Nausea: no Shortness of breath: Mild Cough: Mild Hemoptysis: No Dysphagia: No Pain with swallowing: No ALLERGIES No Known Allergies MEDICATIONS: citalopram hydrobromide (CELEXA) 10 mg tablet Take 10 mg by mouth once daily. predniSONE (DELTASONE) 10 mg tablet PLEASE SEE ATTACHED FOR DETAILED DIRECTIONS benzonatate (TESSALON PERLE) 100 mg capsule TAKE 1 CAPSULE BY MOUTH TWICE A DAY FOR COUGHING acetaminophen-codeine (TYLENOL-COD #3) 300-30 mg per tablet TAKE 1-2 TABLETS BY MOUTH EVERY 8 HOURS NEEDED FOR COUGHING ibuprofen (MOTRIN) 600 mg tablet Take 600 [...] every 8 hours as needed for nausea/vomiting. fentaNYL (DURAGESIC) 25 mcg/hr Apply 1 Patch as directed every 72 hours. (Patient not taking: Reported on 02/12/2025) PAST MEDICAL HISTORY Diagnosis Date Adenocarcinoma of right lung (HCC) 2023 Hilar lymphadenopathy Prior radiation therapy, collagen vascular disease, or inflammatory bowel disease: No Any implanted or external electric devices? No PAST SURGICAL HISTORY Procedure Laterality Date PAST SURGICAL HISTORY OF 02/2024 bronchoscopy PAST SURGICAL HISTORY OF Right right arm TOTAL ABDOM HYSTERECTOMY FAMILY HISTORY Problem Relation Age of Onset Heart disease Mother Heart disease Father Cancer Sister Social History Tobacco Use Smoking status: Never Passive exposure: Past Smokeless tobacco: Never Substance Use Topics Alcohol use: Never Drug use: Never COMPLETE REVIEW OF SYSTEMS: GENERAL: feeling well without fatigue, no recent change in weight NECK: denies swelling or pain in neck MUSCULOSKELETAL: denies any painful or swollen joints, no muscle aches NEURO: no numbne (more content not included)... Normal [facility] Gerri 02-12-2025 [facility] Telephone (AloompaA) -------- ISELA DE LA ROSA ([id number]) 1955 F Date Time Provider Department 02/12/25 Williams APPLE During your visit today, we recorded the following information about you: Bozena Oliva RN 02/12/2025 1:24 PM Signed PSS/RT: please schedule SIM 02/15 no contrast, 4DCT-10 fx Presim consent Nurse ed today Thanks PALMA Patel Jodi 02/12/2025 1:44 PM Signed Nurse ed added Shirley Michael RT(R) 02/12/2025 2:07 PM Signed Sim scheduled for tomorrow 02/13 at 1:30 (Ok per DEANNA) Please add pre sim consent on for 1:00 pm and notify patient of appointment and to arrive at 12 :45 Shirley Olvera RT(R)(T) Andria Barrera 02/12/2025 3:55 PM Signed Confirmed with patient arrival time, schedule blocked, will add tomorrow Andria Barrera 02/13/2025 8:28 AM Signed Pre sim added Allergies As of Date: 02/12/2025 (No Known Allergies) Date Reviewed: 02/12/2025 Reviewed by: Maira Rogers MA - Fully Assessed Reason for Visit: Appointment [186] Prescriptions as of 02/13/2025 - citalopram hydrobromide (CELEXA) 10 mg tablet Take 10 mg by mouth once daily. - predniSONE (DELTASONE) 10 mg tablet PLEASE SEE ATTACHED FOR DETAILED DIRECTIONS - benzonatate (TESSALON PERLE) 100 mg capsule TAKE 1 CAPSULE BY MOUTH TWICE A DAY FOR COUGHING - acetaminophen-codeine (TYLENOL-COD #3) 300-30 mg per tablet TAKE 1-2 TABLETS BY MOUTH EVERY 8 HOURS NEEDED FOR COUGHING - fentaNYL (DURAGESIC) 25 mcg/hr Apply 1 [...] for nausea/vomiting. Problem List As Of Date: 02/12/2025 (None) Encounter Status:Closed by BOZENA OLIVA on 02/12/25 Normal [facility] GLUCOSE, BLOOD (POC)on 02-12 Glucose [Mass/Vol] 113 mg/dL Abnormal 74 - 99 mg/dL [facility] Comment on above: Location:[facility], [address] [place] [address] [place], [place], [facility] The Accu-Chek Inform II glucose meter has [...] blood gas instrument) in the above situations. Interpretation and review of laboratory results Abnormal [facility] NM PET/CT SKULL-THIGH SUBQon 02-12-2025 NM PET/CT SKULL-THIGH SUBQ * * *Final Report* * * DATE [...] osseous and liver metastases. Status post systemic chemotherapy/immunothera py. CT chest 01/31/2025 showed enlarging right superior [...] designed to produce diagnostic CT scan quality. Physiologic/non-patholog ic uptake in some body regions could confound or obscure some pathology. * CT Dose-Length Product (DLP): 140 mGy*cm * CT Dose Reduction Employed: Yes * Blood glucose: 113 mg/dL * Injection site: Right Forearm-Antecubital * Injected activity: 7.1 mCi * Uptake Time: 59 minutes * Radiopharmaceutical: J92-Lnrgclrpdtjveoakbr (FDG) COMPARISON: Outside FDG PET/CT 11/13/2024, 03/06/2024 [...] and corresponding with known hypothyroidism. CHEST: Lungs and Pleura: -Enlargement of 6 cm right upper [...] the left was not included in the aootw-it-qwiv. -Additional non FDG avid sclerotic foci, presumed previously treated metastases. Soft Tissues: No radiotracer avid lesion. IMPRESSION Since 11/13/2024, PRIMARY AND JUAREZ DISEASE SITE: * Enlarging right upper lobe hypermetabolic mass with conglomerative right hilar metastatic lymphadenopathy. * Additional new/enlarging subcarinal metastatic nodes. METASTATIC DISEASE: * New and enlarging (more content not included)... Normal [facility] CNPAmrita 02-07-2025 CNPN Telephone (RADTSA) -------- ISELA DE LA ROSA ([id number]) 1955 F Date Time Provider Department 02/07/25 Williams APPLE During your visit today, we recorded the following information about you: Williams Apple MD 02/07/2025 7:26 AM Signed Discussed with Dr. Chester on phone. Please arrange to have patient come in for evaluation. Also order PET scan. Please mention I talked with Dr. Chester when talking with pt. Daria Wilkins RN 02/07/2025 8:[address] Apple, PET can be before or after consult. We will also need to get images/films from [employer] pushed to our system. Thank you PALMA Martinez Jodi 02/07/2025 9:09 AM Signed PET scheduled 02/12/2025 with an arrival time of 11:15 and a scan time of 12:30. Consult with DEANNA following at 2:00 pm. LM for patient to call back and confirm these appointments Lexi Aguilera 02/07/2025 10:07 AM Signed Images uploaded. Asia Feng 02/07/2025 12:49 PM Signed Patient returned call to confirm PET scan on Wednesday. KADE Kam Allergies As of Date: 02/07/2025 (No Known Allergies) Date Reviewed: 11/15/2024 Reviewed by: Merly Forte LPN - Fully Assessed Primary Visit Diagnosis:Malignant neoplasm of unspecified part of unspecified bronchus or lung (HCC) [C34.90] Order(s):NM PET/CT SKULL-THIGH SUBSEQUENT [0970098] Order #: [id number] FUTURE Prescriptions as of 02/07/2025 - fentaNYL (DURAGESIC) 25 mcg/hr Apply 1 [...] for nausea/vomiting. Problem List As Of Date: 02/07/2025 (None) Encounter Status:Closed by Williams PAPLE on 02/07/25 [facility] CNOVSP Visit (SP) Office (HEMAMN) -------- ISELA DE LA ROSA ([id number]) 1955 F Date Time Provider Department 11/15/24 4:30 PM MINERVA LINDSAY During your visit today, we recorded the following information about you: Temperature Pulse Respiration Blood pressure 98.1 degrees 67/minute 18/minute 171/89 Weight 56.6 kg Merly Forte LPN 11/15/2024 4:28 PM Signed Additional intake questions: Has the patient had fever, nausea, vomiting, diarrhea, constipation, fatigue for > 1 week? Yes, fatigue and Provider Notified Does the patient have a decreased appetite? Yes Does patient want to see a Industrial Hygiene Engineer? No (yes to any of above refer patient to schedulers for dietitian appointment) ) Does patient have any new or increased numbness or tingling of extremities? Yes, pt. States right hand has tingling Is patient interested in fertility information? NA Does patient need any prescription refills? No Does patient have an advanced directive in place? No Electronically Signed By: AIDA Burns Khaled, MD 11/20/2024 1:27 AM Signed THORACIC ONCOLOGY RETURN VISIT (Elements copied from my note dated 08/21, have been reviewed and updated where appropriate, and all reflect current assessment and medical decision making from today's encounter, November 15, 2024) ASSESSMENT: [id number], stage IVB NSCLC adenocarcinoma. PD-L 13% Molec negative. Status post 4 cycles of carboplatin pemetrexed and pembrolizumab. TREATMENT: carboplatin pemetrexed and pembrolizumab. 04/18-07/11/2024 Pemetrexed 08/29/24 and 10/03/2024 PLAN: Based on current PET scan, there is no evidence of disease progression. Would recommend to continue holding any treatment at this point and give sometime for potential renal improvement. Will get follow up CT scan in 2-3 months and decide upon further management accordingly. Will review the kidney biopsy at [facility], however, per current pathology report it looks like tubular injury probably secondary to pemetrexed rather than immune mediated. HPI: Isela De La Rosa presents to [facility] today for thoracic oncology evaluation. She is [...] Diagnosis Date Adenocarcinoma of right lung (HCC) 2024 Hilar lymphadenopathy PAST SURGICAL HISTORY Procedure Laterality [...] or paralysis, seizures, numbness or tingling of h (more content not included)... [facility]N Tele[facility] (HEMCA3) -------- ISELA DE LA ROSA ([id number]) 1955 F Date Time Provider Department 11/07/24 MINERVA LINDSAY HEMCA3 During your visit today, we recorded the following information about you: CruzSheldon Doddel 11/07/2024 11:50 AM Signed Isela De La Rosa('s) caregiver: Dr. Chester's office is calling Minerva Lindsay MD today regarding Clinical Administrator - Other Dr. Chester's office called to see if Dr. Lindsay requested the pathology slides for patient's kidney biopsy yet to review. If not, could he do so, per the conversation both doctor's had previously. If request hasn't been made yet, it should be sent to [facility], pathology lab Patient has been identified by name and birthdate. Yvette Danyelle November 07, 2024 Sarah Elkins RN 11/10/2024 2:16 PM Signed Pathology slides for patient's kidney biopsy have been sent to [facility] pathology lab per request from Dr. Chester by education administrative assistant Tatiana. Sarah Elkins RN Specialty Clinical Administrator [facility] Allergies As of Date: 11/07/2024 (No Known Allergies) Date Reviewed: 08/21/2024 Reviewed by: Dashawn Chen LPN - Fully Assessed Reason for Visit: Clinical Administrator - Other [3579] Prescriptions as of 11/10/2024 - fentaNYL (DURAGESIC) [...] Encounter Status:Closed by SARAH ELKINS on 11/10/24 [facility] Gerri 10-17-2024 CNPN Telephone (HEMACA) -------- ISELA DE LA ROSA ([id number]) 1955 F Date Time Provider Department 10/17/24 MINERVA LINDSAY During your visit today, we recorded the following information about you: Tatiana Sow 10/17/2024 11:30 AM Signed Isela De La Rosa('s) Anay/Dr. Chester's office is calling Minerva Lindsay MD today regarding Clinical Administrator - Other (Speak to nurse ) Anay called to speak with provider's nurse regarding patient. Sent secure chat to Hanna. Alvarado. Patient has been identified by name and birthdate. Requesting response back: [phone] (home) [phone] (cell) Tatiana Sow October 17, 2024 Ana Riojas, RN 10/17/2024 11:44 AM Signed Received a call from Dr. Chester's office. Dr. Chester would like to discuss Isela's treatment plan and elevated kidney function, to coordinate a new plan for her. Let Dr. Chester know that Dr. Toro is covering for Dr. Lindsay. Message sent to Dr. Toro with request to return Dr. Chester's phone call. Ana Riojas, MSN, RN Specialty Clinical Administrator October 17, 2024 Allergies As of Date: 10/17/2024 (No Known Allergies) Date Reviewed: 08/21/2024 Reviewed by: Dashawn Chen LPN - Fully Assessed Reason for Visit: Care Coordination [2561] Prescriptions as of 10/17/2024 - fentaNYL (DURAGESIC) [...] Encounter Status:Closed by ANA RIOJAS on 10/17/24 [facility] IR BIOPSY RENAL PERC RTon IR BIOPSY RENAL PERC RT IR BIOPSY RENAL PERC RT Indication: Acute kidney injury. Consent: Informed consent was obtained by myself from the alert and oriented patient. Patient understands procedure and all of her questions were answered. Timeout: [place] timeout verification procedure was performed. Moderate sedation: The patient's cardiopulmonary status was evaluated and the patient is suitable for moderate sedation. During the course of the procedure, the patient was sedated with Sublimaze 50 mcg intravenously and Versed 0.5 MG intravenously while being monitored with ECG, blood pressure monitoring, and pulse oximeter by appropriately trained personnel. 30 minutes of wewl-wt-mxui moderate sedation was provided by the same [...] Penny MD on 09/13/2024 2:17 PM Normal [facility] PLATELET COUNT AND MPVon Platelet mean volume (Bld) [Entitic vol] 8.9 fL Normal 7-12 [facility] Comment on above: Performed By: #### 1 4979-9, PLTCT, PINR #### [facility] ([id number]) [address], [address] [place] [address] Platelets (Bld) [#/Vol] 159 10*3/uL Normal 150-450 [facility] Comment on above: Performed By: #### 1 4979-9, PLTCT, PINR #### [facility] ([id number]) [address], [address] [place] [address] PROTIME AND INRon 09-13-2024 INR Coag (PPP) [Relative time] 1.0 {INR} Normal 0.8-1.1 [facility] Comment on above: Performed By: #### 1 4979-9, PLTCT, PINR #### [facility] ([id number]) [address], [address] [place] [address] PT Coag (PPP) [Time] 11.1 s Normal 9.8-13.2 [facility] Comment on above: Performed By: #### 1 4979-9, PLTCT, PINR #### [facility] ([id number]) [address], [address] [place] [id number] Surgical Pathologyon 025 Surgical Pathology Normal [facility] Comment on above: Result Comment: [facility] [address] [place], [place] [id number] Surgical Pathology Consultation ADDENDUM SC Patient Name:PAT DE LA ROSAB:1955 (Age: 69)Gender:FTaken:09/13/2024Reported:09/19/2024Physician(s):Kristi Nemo ([phone])Copy To:Berna Penny M.D. Rec. #:[id number]: #[id number] Final Pathologic Diagnosis Kidney, needle biopsy: Mild [...] comment is from Julieta Sanford M.D., Ph.D., [facility], [place], [place]. Please see the complete report in the patient's EMR. Report Electronically Signed Out [facility]/09/19/2024kelsie Foley MD Addendum (PHS) Date Reported: 09/20/2024 Results of electron microscopy are received from Julieta Sanford M.D., Ph.D., [facility], [place] and are as follows: Impression: Kidney, needle biopsy: Mild acute tubular injury with mild interstitial nephritis. Please see the complete report from [facility] in the patient's EMR. Electronically Signed Out Cipriano Foley MD Interpretation performed at [facility], [address] [place] [address], License number: [id number]. Clinical History LEIDA (acute kidney injury). Gross Description Received fresh in CT from a [place] right kidney are 4 meeks core biopsies ranging in size from 0.5 cm to 0.9 cm in length. The tissue is divided into 10% formalin and Julio César's media. The specimens are sent to [facility] for processing. (GROSS ONLY) . med/09/13/2024O Intraoperative Consultation Rapid onsite evaluation: Adequate glomeruli, over 4 cores. - AO Interpretation provided at [facility], [address] [place] [address] Specimen(s) Received Right [place] kidney biopsy Fee Codes(s): 1; 57525, 28909 aPTT Coag (PPP) [Time]on aPTT Coag (Bld) [Time] 30 s Normal 26-37 [facility] Comment on above: Performed By: #### 1 4979-9, PLTCT, PINR #### [facility] ([id number]) [address] [place] [address], [address] [place] [address] Ambulatory Visit Summaryon 0 08-30-2024 Ambulatory Visit [...] choosing us for your care. Normal [facility] General Surgery Office/Clini c Noteon 08-30-2024 General Surgery Office/Clinic Note General Surgery Office/Clinic Note Chief Complaint post operative follow up HPI Staff 14 day post operative follow up post Vguypy-y-venf insertion. Denies discomfort, no use of pain medication. Denies bleeding or drainage. Port has been accessed without incident. History of Present Illness 2 weeks s/p right external jugular mdpwge-k-qtla insertion; doing well; port working well, no [...] mRNA BNT-162b2 vax 08/28/2020 Recorded Normal [facility] Comment on above: Result Comment: Elec tronically Signed By: RIA BAILEY, Bhupendra King\Date and Time Signed: 08/30/24 13:56 EST Gerri 08-25-2024 CNPN Telephone (HEMAMN) -------- ISELA DE LA ROSA ([id number]) 1955 F Date Time Provider Department 08/25/24 MINERVA LINDSAYAMN During your visit today, we recorded the following information about you: Sergo Calhoun 08/25/2024 1:15 PM Signed Katie from Dr. Sia torres at [facility] states order for kidney biopsy needs to be placed [facility], they are not able to submit the order, must be done by [facility] facility. Patient has been identified by name and birthdate. Duration of symptoms: N/A Requesting response back: Katie can be reached at [phone] if needed. [phone] (home) [phone] (cell) Sergo Staples August 25, 2024 Sarah Elkins, PALMA 08/25/2024 4:18 PM Signed Left message introducing self by name and title asking to return call. Sarah Elkins RN Specialty Clinical Administrator [facility] Sarah Elkins RN 08/28/2024 10:26 AM Signed Received incoming call from Dr. Chester's office. Informed them that Dr. Lindsay recommends she get biopsy done with her local established hospital medicine director. Sarah Elkins RN Specialty Clinical Administrator [facility] Allergies As of Date: 08/25/2024 (No Known Allergies) Date Reviewed: 08/21/2024 Reviewed by: Dashawn Chen LPN - Fully Assessed Reason for Visit: Clinical Administrator - Other [3602] Prescriptions as of 08/28/2024 - fentaNYL (DURAGESIC) [...] Encounter Status:Closed by SARAH ELKINS on 08/25/24 [facility] -------- ISELA DE LA [id number]) 1955 F Date Time Provider Department 08/22/24 MINERVA LINDSAY HEMCA3 During your visit today, we recorded the following information about you: Yvette Bassett 08/22/2024 12:57 PM Signed Isela De La Rosa('s) caregiver: Dr. Chester's office is calling Minerva Lindsay MD today regarding the suggestion of Dr. Lindsay that patient have a biopsy on her kidney. Dr. Chester wants to know if Dr. Lindsay is going to arrange this or does he want Dr. Chester to arrange it. Patient has been identified by name and birthdate. Requesting response back: [phone] - Dr. Chester's office Yvette Danyelle August 22, 2024 Ana Riojas, PALMA 08/22/2024 1:53 PM Signed Returned call and identified self by name and title. Called Dr. Chester's office and let them know that Dr. Lindsay would like Dr. Chester to arrange the kidney biopsy. Ana Riojas, MSN, RN Specialty Clinical Administrator August 22, 2024 Allergies As of Date: 08/22/2024 (No Known Allergies) Date Reviewed: 08/21/2024 Reviewed by: Dashawn Chen LPN - Fully Assessed Reason for Visit: Care Coordination [8121] Prescriptions as of 08/22/2024 - fentaNYL (DURAGESIC) [...] Encounter Status:Closed by ANA RIOJAS on 08/22/24 [facility] CNOVSPon 08-21-2024 CNOVSP Visit (SP) Office (HEMAMN) -------- ISELA DE LA ROSA ([id number]) 1955 F Date Time Provider Department 08/21/24 10:00 AM MINERVA LINDSAY During your visit today, we recorded the [...] better Does patient want to see a Industrial Hygiene Engineer? No (yes to any of above refer patient to schedulers for dietitian appointment) ) Does patient have any new or increased numbness or tingling of extremities? No Is patient interested in fertility information? No Does patient need any prescription refills? No Does patient have an advanced directive in place? Yes, no copy found in [facility] Patient referred to Resource Center Electronically Signed By: AIDA Sweeney Khaled, MD 08/21/2024 3:09 PM Signed THORACIC ONCOLOGY NEW CONSULT VISIT ASSESSMENT: [id number], stage IVB NSCLC adenocarcinoma. PD-L 13% Molec [...] true progression of disease. CC: Kristi Chester [address] [place] [address] [address] [facility] [address] Brenda Dong MD [address] [facility] [address] Chester for an opinion regarding Ms. Isela De La Rosa, and my final recommendations will be communicated back to the requesting physician by way of shared medical record or letter via US mail. HPI: Isela De La Rosa presents to [facility] today for thoracic oncology evaluation. She is [...] or shortne (more content not included)... Normal [facility] Urine Cultureon 07-17-2024 Bacteria identified Cx Nom (U) No Growth 2 Days PERFORMED BY: [place] [address] PATHOLOGIST PHD INTERNSHIP ROM GARCIA M.D. Normal [facility] Comment on above: Performed By: #### C UU #### [address] Urine cultureOrdered By: Rajat Chester on 07-17-2024 Bacteria identified Cx Nom (U) Urine culture [facility] Ambulatory Visit Summaryon 1 Ambulatory Visit Summary [...] for choosing us for your care. [facility] ---- -------- Attestation signed by Rom Melton MD at 04/06/2024 11:16 AM Re-explained the procedure to the patient along with the associated risk of pneumothorax, bleeding, hypoxia, and respiratory failure. Patient is agreeable and will proceed with the scheduled bronchoscopy and EBUS TBNA Rom Melton MD Interventional Pulmonary Medicine Pulmonary and Critical Care Medicine [facility] -------- History Of Present Illness 68 years old [...] carcinomatosis, right supraclavicular, mediastinal and right hilar juarez metastasis, was also focal hypermetabolic lesion in [...] will be sent to Dr. Nemo Rojas [facility] NON-CENTRAL OFFICE INSPECTOR CYTOLOGY - CELLULAR EXAMon 04-06-2024 LAB AP ADDENDUM 1 Normal [facility] Comment on above: Result Comment: This case ([id number]) was sent to [facility] for the Fancy Tissue Next and PDL1 22C3 assays. The results read as follows: Detected Alterations and Biomarkers with Associated Treatment Options or Clinical Trials TP53: I195T RAF1: P261R Additional Biomarkers Tumor Mutational Hewett (TMB): 4.0 mut/Mb MSI Status: Stable PD-L1 [...] sensitivity of the TissueNext test. See separate Fancy report for a complete description with interpretive content and potential clinical trials. Addendum electronically signed by Linnea Palumbo MD on 2024 at 9:29 AM Performed By: #### L AB13 ####[facility] (BEAKER)[address] [place] [address] LAB AP CASE REPORT Normal [facility] Comment on above: Result Comment: Non- gynecologic Cytology Case: [id number] Authorizing Provider: Rom Melton MD Collected: 04/06/2024 1145 [facility] Received: 04/06/2024 1425 Pathologist: Linnea Palumbo MD Specimen: Lymph Node Station 4R Performed By: #### L AB13 ####[facility] (BEAKER)[address] [place] [address] LAB AP CLINICAL INFORMATION [facility] Comment on above: Result Comment: Hist ory of adenocarcinoma of the right upper lobe, molecular testing requested Performed By: #### L AB13 ####[facility] ([facility]AK[facility])[address] [place] [address] LAB AP DIAGNOSIS COMMENT There is a moderate amount of tumor cells present in the cell block for additional studies, if clinically indicated. [facility] Comment on above: Performed By: #### L AB13 ####[facility] ([facility])[address] [place] [place] [address] LAB AP GROSS DESCRIPTION [facility] Comment on above: Result Comment: 2 ai r-dried slides, 2 alcohol-fixed slides, 30 mL CytoLyt with hazy, red fluid and clots Performed By: #### L AB13 ####[facility] ([facility])[address] [place] [address] LAB AP INTRAOPERATIVE CONSULTATION [facility] Comment on above: Result [...] L AB13 ####[facility] ([place])[address] [place] [address] LAB AP MICROSCOPIC DESCRIPTION A. Satisfactory for evaluation. Examination of the prepared smears and cell block reveals numerous tumor cells arranged in clusters and as single cells with finely vacuolated cytoplasm, high n/c ratio, and enlarged nuclei with irregular chromatin and prominent nucleoli. [facility] Comment on above: Performed By: #### L AB13 ####[facility] ([facility])[address] [place] [address] LAB AP REPORT FINAL DIAGNOSIS NARRATIVE [facility] Comment on above: Result Comment: A. L ymph node, station 4R, EBUS-guided fine needle aspiration: - Metastatic adenocarcinoma. Performed By: #### L AB13 ####[facility] ([facility])[address] [place] [address] NURSNOTEon 04-06-2024 NURSNOTE Discharge instructio ns reviewed with patient sister at bedside. All questions answered at this time Cass Lucero OFFSET PRESSMAN [facility] NURSNOTE No chest xray needed post op at this time per Dr. Lorri Lucero OFFSET PRESSMAN [facility] POCT GLUCOSE METER UNSOLICIT ED RESULTSon 04-06-2024 Glucose [Mass/Vol] 104 mg/dL Normal 70-105 [facility] Comment on above: Order Comment: Waive d Testing in the ED is performed under the ED CLIA certificate #[id number]. Result Comment: ngro rodriguez Performed By: #### L [id number] #### [facility] ([facility]) [address] [place] [address] Prep for Procedureon 024 Prep for Procedure [id number] Manjula De La Rosa 1955 F Date Provider Department Center 04/[facility]20[facility] No family history on file Normal [facility] Abstracton 04-03-2024 Abstract [id number] Manjula De La Rosa 1955 F Date Provider Department Center 04/03[facility]20[facility] No family history on file Normal [facility] Orders Onlyon 04-03-2024 Orders Only [id number] Manjula De La Rosa 1955 F Date Provider Department Center 04/03/2024 [facility] No family history on file [facility] Umer 02-15-2024 L Specimen: [id number] Received: 02/16/24 Status: PEGGY Gamez Num: [id number] Spec Type: Surgical Subm Dr: Vj Glass DO Tissues: A Lung - Transbroncial Biopsy (RT UPPER LOBE MASS BX) Procedures: HE/2, Gross/Micro L4, CK5 6, CK20, CK 7, NAPSIN A, TTF1, IHC First AB, IHC Add AB/5, p40 Age/ Patient Sex Location Account Attending Physician Isela De La Rosa 68/F LABELL [id number] Vj Glass DO SPEC NUM: [id number] RECD: 02/16/24 STATUS: PEGGY GAMEZ NUM: [id number] KIMBERLYN: 02/15/[address]: Vj Glass DO ENTERED: 02/16/[address]: Jesu,Nadeem SPEC TYPE: Surgical DEPT: DENISSE [...] (signature on file) Rom Garcia MD 04/12/241909 Pathological Diagnosis Lesion, right lung, upper lobe, biopsy: Adenocarcinoma. Comment: Tumor cells are positive for cytokeratin 7 and Napsin, while being negative for cytokeratin 20, p40 and cytokeratin 5/6 immunostain. This immunoprofile is consistent with lung adenocarcinoma. Clinical correlation is required. Specimen: [id number] Received: 02/16/24-1241 Status: PEGGY Gamez Num: [id number] Spec Type: Surgical Subm Dr: Vj Glass DO Tissues: A Lung - Transbroncial Biopsy (RT UPPER LOBE MASS BX) Procedures: HE/2, Gross/Micro L4, CK5 6, CK20, CK 7, NAPSIN A, TTF1, IHC First AB, IHC Add AB/5, p40 Patient: EstrellaIsela [id number] (Continued) Specimen: [id number] Received: 02/16/24 (Continued) Signed (signature on file) Rom Garcia MD 02/23/24 1658 Specimen: [id number] Received: 02/16/24 Status: PEGGY Gamez Num: [id number] Spec Type: Surgical Subm Dr: Vj Glass DO Tissues: A Lung - Transbroncial Biopsy (RT UPPER LOBE MASS BX) Procedures: HE/2, Gross/Micro L4, CK5 6, CK20, CK 7, NAPSIN A, TTF1, IHC First AB, IHC Add AB/5, p40 Patient: EstrellaIsela [id number] (Continued) Specimen: [id number] Received: 02/16/24 (Continued) Clinical Information Abnormal bronchial mucosa of the right upper lobe Gross Description Received in formalin labeled with the patient's name, date of and right upper lobe mass biopsy are 3 delicate meeks tissue fragments ranging from 0.4 x 0.1 x 0.1 cm to 0.3 x 0.1 x 0.1 cm, entirely submitted in A1. CPT Codes 57706 [id number] Specimen: [id number] Received: 02/16/24 Status: PEGGY Gamez Num: [id number] Spec Type: Surgical Subm Dr: Vj Glass DO Tissues: A Lung - Transbroncial Biopsy (RT UPPER LOBE MASS BX) Procedures: HE/2, Gross/Micro L4, CK5 6, CK20, CK 7, NAPSIN A, TTF1, IHC First AB, IHC Add AB/5, p40 Patient: Isela De La Rosa [id number] (Continued) Signed (signature on file) Rom Garcia MD 02/23/241657 [place] [facility] Specimen: [id number] Received: 02/16/24 Status: PEGGY Gamez Num: [id number] Spec Type: Cytology Subm Dr: Vj Glass DO Tissues: A [facility] ([facility]) Procedures: HE/2, Gross/Micro L4, Cyto Prepstain, PAPSTN Age/ Patient Sex Location Account Attending Physician Isela De La Rosa 68/F LABELL [id number] Vj Glass DO SPEC NUM: [id number] RECD: 02/16/24 STATUS: PEGGY GAMEZ NUM: [id number] KIMBERLYN: 02/15/[address]: Vj Glass DO ENTERED: 02/16/24 [facility] DR: Nadeem Nails SPEC TYPE: Cytology DEPT: DENISSE SHI ENTERED BY: [id number] RECV BY: [id number] ORDERED: HE/2, Gross/Micro L4, Cyto Prepstain, PAPSTN ORDERED: HE/2, Gross/Micro L4, Cyto Prepstain, PAPSTN Pathological Diagnosis Right lung, bronchial washings: Negative for malignant cells. Clinical Information Right lung mass Gross Description Received fresh is 8 ml red cloudy unfixed fluid for cytology said to have been obtained as Right upper lobe lavage. ThinPrep and cell block preparations are prepared for microscopic examination.( SD/ak) CPT Codes 80846 Specimen: [id number] Received: 02/16/24 Status: PEGGY Gamez Num: [id number] Spec Type: Cytology Subm Dr: Vj Glass DO Tissues: A ANGEL CLEMENT) Procedures: HE/2, Gross/Micro L4, Cyto Prepstain, PAPSTN Patient: Isela De La Rosa [id number] (Continued) Signed (signature on file) Rom Garcia MD 02/23/24 8944 Normal [facility] NM STRESS/REST MULTIon 06-10 NM STRESS/REST MULTI Patient: ISELA DE LA ROSA Exam Date: 06/10/2021 : 1955 Gender:F Ordering : DR BRENDA DONG . Admission #: [id number] Family : Order #: [id number] CLICK HERE TO VIEW EXAM RADIOLOGY REPORT [...] Maravilla MD on 06/10/2021 at 12:59 Normal [facility] Vital Signs Date Time Vital Sign Value Performing Clinician Facility 02-16-2025 14:33-0400 Body mass index (BMI) [Ratio] 21.48 kg/m2 Minerva Lindsay MD Work Phone: [facility] 02-16-2025 14:33-0400 Body temperature 97.11 [degF] Minerva Lindsay MD Work Phone: [facility] 02-16-2025 14:33-0400 Body weight 55 kg Minerva Lindsay MD Work Phone: [facility] 02-16-2025 14:33-0400 Diastolic blood pressure 78 mm[Hg] Minerva Lindsay MD Work Phone: [facility] 02-16-2025 14:33-0400 Heart rate 78 /min Minerva Lindsay MD Work Phone: [facility] 02-16-2025 14:33-0400 Respiratory rate 20 /min Minerva Lindsay MD Work Phone: [facility] 02-16-2025 14:33-0400 SaO2% (BldA) [Mass fraction] 98 % Minerva Lindsay MD Work Phone: [facility] 02-16-2025 14:33-0400 Systolic blood pressure 122 mm[Hg] Minerva Lindsay MD Work Phone: [facility] 02-12-2025 12:47-0400 Body height 160 cm MAXX Apple MD Work Phone: [facility] 02-12-2025 12:47-0400 Body mass index (BMI) [Ratio] 20.82 kg/m2 MAXX Apple MD Work Phone: [facility] 02-12-2025 12:47-0400 Body temperature 97.11 [degF] MAXX Apple MD Work Phone: [facility] 02-12-2025 12:47-0400 Body weight 53.3 kg MAXX Apple MD Work Phone: [facility] 02-12-2025 12:47-0400 Diastolic blood pressure 84 mm[Hg] MAXX Apple MD Work Phone: [facility] 02-12-2025 12:47-0400 Heart rate 69 /min MAXX Apple MD Work Phone: [facility] 02-12-2025 12:47-0400 Respiratory rate 16 /min MAXX Apple MD Work Phone: [place] [address]-21-2025 12:47-0400 SaO2% (BldA) [Mass fraction] 97 % MAXX Apple MD Work Phone: [facility] 02-12-2025 12:47-0400 Systolic blood pressure 123 mm[Hg] MAXX Apple MD Work Phone: [facility] 01-25-2025 15:20-0400 Body height 157.48 cm Brenda Dong MD Work Phone: [facility] 01-25-2025 15:20-0400 Body mass index (BMI) [Ratio] 22.8 kg/m2 Brenda Dong MD Work Phone: [facility] 01-25-2025 15:20-0400 Body temperature 97.2 [degF] Brenda Dong MD Work Phone: [facility] 01-25-2025 15:20-0400 Body weight 56.81 kg Brenda Dong MD Work Phone: [facility] 01-25-2025 15:20-0400 Diastolic blood pressure 88 mm[Hg] Brenda Dong MD Work Phone: [facility] 01-25-2025 15:20-0400 Heart rate 74 /min Brenda Dong MD Work Phone: [facility] 01-25-2025 15:20-0400 Respiratory rate 18 /min Brenda Dong MD Work Phone: [facility] 01-25-2025 15:20-0400 SaO2% (BldA) [Mass fraction] 96 % Brenda Dong MD Work Phone: [facility] 01-25-2025 15:20-0400 Systolic blood pressure 138 mm[Hg] Brenda Dong MD Work Phone: [facility] 10-09-2024 15:21-0400 Body height 157.48 cm Kristi Chester MD Work Phone: [facility] 10-09-2024 15:21-0400 Body mass index (BMI) [Ratio] 24.1 kg/m2 Kristi Chester MD Work Phone: [facility] 10-09-2024 15:21-0400 Body temperature 98.1 [degF] Kristi Chester MD Work Phone: [facility] 10-09-2024 15:21-0400 Body weight 59.87 kg Kristi Chester MD Work Phone: [facility] 10-09-2024 15:21-0400 Diastolic blood pressure 96 mm[Hg] Kristi Chester MD Work Phone: [facility] 10-09-2024 15:21-0400 Heart rate 63 /min Kristi Chester MD Work Phone: [facility] 10-09-2024 15:21-0400 Systolic blood pressure 168 mm[Hg] Kristi Chester MD Work Phone: [facility] 08-21-2024 10:51-0500 Diastolic blood pressure 77 mm[Hg] Minerva Lindsay MD Work Phone: [facility] Comment on above: notified 08-21-2024 10:51-0500 Systolic blood pressure 152 mm[Hg] Minerva Lindsay MD Work Phone: [facility] Comment on above: notified 08-21-2024 10:45-0500 Body temperature 98.1 [degF] Minerva Lindsay MD Work Phone: [facility] 08-21-2024 10:45-0500 Heart rate 59 /min Minerva Lindsay MD Work Phone: [facility] 08-21-2024 10:45-0500 Respiratory rate 20 /min Minerva Lindsay MD Work Phone: [facility] 08-21-2024 10:45-0500 SaO2% (BldA) [Mass fraction] 100 % Minerva Lindsay MD Work Phone: [facility] 08-03-2024 15:05-0500 Body height 157.48 cm Kristi Chester MD Work Phone: [facility] 08-03-2024 15:05-0500 Body mass index (BMI) [Ratio] 24.5 kg/m2 Kristi Chester MD Work Phone: [facility] 08-03-2024 15:05-0500 Body weight 60.78 kg Kristi Chester MD Work Phone: [facility] 08-03-2024 15:05-0500 Diastolic blood pressure 64 mm[Hg] Kristi Chester MD Work Phone: [facility] 08-03-2024 15:05-0500 Systolic blood pressure 116 mm[Hg] Kristi Chester MD Work Phone: [facility] 07-05-2024 09:30-0500 Body height 157.48 cm Kristi Chester MD Work Phone: [facility] 07-05-2024 09:30-0500 Body mass index (BMI) [Ratio] 25 kg/m2 Kristi Chester MD Work Phone: [facility] 07-05-2024 09:30-0500 Body temperature 97.4 [degF] Kristi Chester MD Work Phone: [facility] 07-05-2024 09:30-0500 Body weight 61.91 kg Kristi Chester MD Work Phone: [facility] 07-05-2024 09:30-0500 Diastolic blood pressure 85 mm[Hg] Kristi Chester MD Work Phone: [facility] 07-05-2024 09:30-0500 Heart rate 77 /min Kristi Chester MD Work Phone: [facility] 07-05-2024 09:30-0500 Respiratory rate 16 /min Kristi Chester MD Work Phone: [facility] 07-05-2024 09:30-0500 SaO2% (BldA) [Mass fraction] 99 % Kristi Chester MD Work Phone: [facility] 07-05-2024 09:30-0500 Systolic blood pressure 130 mm[Hg] Kristi Chester MD Work Phone: [facility] 05-25-2024 10:41-0400 Blood Pressure Location Bhupendra NILL [facility] 05-25-2024 10:41-0400 Diastolic blood pressure 93 mm[Hg] Bhupendra NILL [facility] 05-25-2024 10:41-0400 Heart rate 81 /min Bhupendra NILL [facility] 05-25-2024 10:41-0400 Respiratory rate 16 /min Bhupendra NILL [facility] 05-25-2024 10:41-0400 Systolic blood pressure 165 mm[Hg] Bhupendra NILL [facility] Encounters Encounter Date Encounter Type Care Provider Facility Start: 02-20-2025 End: 02-20-2025 Telephone encounter Minerva Lindsay MD Work Phone: Hematology/Oncology Comment on above: Care Coordination Start: 02-19-2025 End: 02-21-2025 Telephone encounter Williams Apple MD Work Phone: Radiation Oncology Comment on above: Future Appointment Start: 02-16-2025 End: 02-16-2025 Patient encounter procedure Minerva Lindsay MD Work Phone: Hematology/Oncology Start: 02-16-2025 End: 02-16-2025 ambulatory Minerva Lindsay MD Work Phone: Hematology/Oncology Comment on above: Malignant neoplasm o f unspecified part of unspecified bronchus or lung (HCC); Secondary malignant neoplasm of bone (HCC); Malignant pleural effusion (HCC) Start: 02-13-2025 End: 02-13-2025 Telephone encounter Williams Apple MD Work Phone: Radiation Oncology Comment on above: Appointment Cancelle d Start: 02-12-2025 End: 02-12-2025 Office outpatient new 45 minutes Williams Apple MD Work Phone: Radiation Oncology Comment on above: Malignant neoplasm o f unspecified part of unspecified bronchus or lung (HCC) (Primary Dx) Start: 02-12-2025 End: 02-12-2025 Telephone encounter Williams Apple MD Work Phone: Radiation Oncology Comment on above: Appointment Start: 02-12-2025 End: 02-12-2025 ambulatory Bozena Oliva RN Radiation Oncology Comment on above: Patient Education Start: 02-12-2025 End: 02-12-2025 Subsequent hospital visit by physician Arrival Time Radiology Work Phone: Radiology Pet CT Comment on above: Malignant neoplasm o f unspecified part of unspecified bronchus or lung (HCC) [C34.90] Start: 02-07-2025 End: 02-07-2025 Telephone encounter Williams Apple MD Work Phone: Radiation Oncology Start: 01-25-2025 End: 01-25-2025 ambulatory Brenda Dong MD Work Phone: [facility] Work Phone: Start: 01-25-2025 End: 01-25-2025 Patient encounter khris Diego MD -[facility] Nephrology [place] Work Phone: Start: 11-15-2024 End: 11-16-2024 ambulatory MINERVA LINDSAY Facility:[facility] Start: 11-07-2024 End: 11-10-2024 Telephone encounter Minerva Lindsay MD Work Phone: Hematology/Oncology Comment on above: Clinical Administrator - O ther Start: 10-17-2024 End: 10-17-2024 Telephone encounter Minerva Lindsay MD Work Phone: Hematology/Oncology Comment on above: Care Coordination Start: 10-09-2024 End: 10-09-2024 ambulatory Kristi Chester MD Work Phone: [facility] Work Phone: Start: 10-09-2024 End: 10-09-2024 Patient encounter procedure Kristi Chester MD [facility] Phone[facility] Work [facility]: Start: 09-13-2024 End: 09-13-2024 ambulatory KRISTI NEMO [facility] Start: 08-30-2024 End: 08-30-2024 ambulatory Bhupendra ROLLINS Facility:[facility] Start: 08-30-2024 End: 08-30-2024 Patient encounter procedure Bhupendra ROLLINS [facility] General Surgery [place] Start: 08-25-2024 End: 08-25-2024 Telephone encounter Minerva Lindsay MD Work Phone: Hematology/Oncology Comment on above: Clinical Administrator - O ther Start: 08-22-2024 End: 08-22-2024 Telephone encounter Minerva Lindsay MD Work Phone: Hematology/Oncology Comment on above: Care Coordination Start: 08-21-2024 End: 08-21-2024 ambulatory Minerva Lindsay MD Work Phone: Hematology/Oncology Comment on above: Malignant neoplasm o f unspecified part of unspecified bronchus or lung (HCC) (Primary Dx) Start: 08-21-2024 End: 08-21-2024 Patient encounter procedure Minerva Lindsay MD Work Phone: Hematology/Oncology Start: 08-16-2024 End: 08-16-2024 ambulatory Bhupendra R NILL Facility:[id number] Start: 08-03-2024 End: 08-03-2024 ambulatory Kristi Chester MD Work Phone: [facility] Work Phone: Start: 08-03-2024 End: 08-03-2024 Patient encounter procedure Kristi Chester MD Work Phone: [facility] Work Phone: Start: 07-17-2024 End: 07-17-2024 ambulatory Kristi Chester Facility:[facility] Start: 07-17-2024 End: 07-17-2024 Departed Referred Kristi Chester MD Work Phone: [facility] [place] [facility] Start: 07-05-2024 End: 07-05-2024 Patient encounter procedure Kristi Chester MD Work Phone: [facility]ician [facility] [place] Work Phone: Start: 05-25-2024 End: 05-25-2024 ambulatory Bhupendra R NILL Facility:[facility] Start: 05-25-2024 End: 05-25-2024 Patient encounter procedure Bhupendra R NILL [facility] General Surgery [place] Start: 05-16-2024 ambulatory Bhupendra NILL Facility:[facility] Start: 04-06-2024 End: 04-06-2024 ambulatory [facility] Start: 04-03-2024 End: 04-03-2024 ambulatory [facility] Start: 03-15-2024 End: 03-15-2024 Chart abstracting Andreas Pascual MD Work Phone: Hematology/Oncology Start: 02-15-2024 End: 02-15-2024 ambulatory [facility] Work Phone: Start: 02-15-2024 End: 02-15-2024 Departed Referred DO [facility] Work Phone: [facility] [facility] Start: 08-08-2021 End: 08-09-[address] BRENDA DONG Facility:[facility] Start: 06-10-2021 End: 06-11-[address] BRENDA DONG Facility:[facility] Procedures Date Procedure Procedure Detail Performing Clinician Start: 02-12-2025 Gluc bld gluc mntr d ev cleared fda spec home use [facility] Provider Start: 08-16-2024 Insertion of implant able venous access port Bhupendra ROLLINS Start: 07-17-2024 Urine culture Kristi richards MD Work Phone: Start: 04-06-2024 Bronchoscopy Bhupendra JOSEPH section Bhupendra Lassiter section Bhupendra Lassiter Nerve transposition Bhupendra ROLLINS Repair of inguinal hernia Jyothi ROLLINS Total abdominal hysterectomy with bilateral salpingo-oophorectomy Bhupendra ROLLINS Plan of Treatment Date Care Activity Detail Author Start: 2031 RSV Vaccine (1 - 1-d ose 75+ series) RSV Vaccine (1 - 1-dose 75+ series) [facility] Start: 03-26-2025 Influenza vaccination Influenza Vacc ine (#1) [facility] Start: 02-20-2025 End: 02-20-2025 Patient encounter procedure Radiation Oncology Comment on above: Pre sim SIM- CHEST/ ESOPH?- NEEDS CONSENT AND SIM REQ Start: 02-16-2025 End: 02-16-2025 Follow-up encounter 02/16/2025 2:30 PM EDT Visit (SP) Office Hematology/Oncology [address] [place] [id number] [place] [address] [place] [address] follow up Hematology/Oncology Comment on above: follow up Start: 02-14-2025 End: 03-09-2026 PET+CT Guidance for localization of tumor of Skull base to mid-thigh-- W 18F-FDG IV NM PET/CT SKULL-THIGH SUBSEQUENT Radiology Routine Malignant neoplasm of unspecified part of unspecified bronchus or lung (HCC) Expected: 02/14/2025, Expires: 03/09/2026 [facility] Work Phone: Comment on above: Expected: 02/14/2025 , Expires: 03/09/2026 Start: 02-13-2025 End: 02-13-2025 Patient encounter procedure 02/13/2025 1:30 PM EDT Office Visit Radiation Oncology [address] [place] [address] Williams Apple MD [address] [address] SIM- CHEST/ ESOPH?- NEEDS CONSENT AND SIM REQ Radiation Oncology Comment on above: SIM- CHEST/ ESOPH?- NEEDS CONSENT AND SIM REQ Start: 02-12-2025 End: 02-12-2025 Patient encounter procedure Radiology Pet CT Comment on above: PET Consult per Dr. Nya ferrer Start: 11-15-2024 End: 11-15-2024 Follow-up encounter 11/15/2024 4:30 PM EDT Visit (SP) Office Hematology/Oncology [address] [place] [address] [place] [address] [place] [address] follow up after scans Hematology/Oncology Comment on above: follow up after scan s Start: 07-26-2024 Advance Directive Discussion Advance Directive Discussion [facility] Start: 07-26-2024 Medicare Advantage Annual Wellness Visit Medicare Advantage Annual Wellness Visit [facility] Start: 03-26-2024 Covid-19 Vaccine ( season) Covid-19 Vaccine ( season) [facility] Start: 03-26-2024 Influenza vaccination Influenza Vacc ine (#1) [facility] Start: 07-26-2023 Advance Directive Discussion Advance Directive Discussion [facility] Start: 03-26-2023 Covid-19 Vaccine ( season) Covid-19 Vaccine () [facility] Start: 2021 Pneumococcal Vaccine : 65+ (1 of 1 - PCV) Pneumococcal Vaccine: 65+ (1 of 1 - PCV) [facility] Start: 2021 Screening for osteoporosis Bone Density Screening [facility] Start: 2016 RSV Vaccine (1 - 1-d ose 60+ series) RSV Vaccine (1 - 1-dose 60+ series) [facility] Start: 2006 Pneumococcal Vaccine : 50+ (1 of 1 - PCV) Pneumococcal Vaccine: 50+ (1 of 1 - PCV) [facility] Start: 2006 Shingrix Vaccine (1 of 2) Shingrix Vaccine (1 of 2) [facility] Start: 2001 Diabetes Screening Diabetes Screenin g [facility] Start: 2001 Lipid panel Lipid Screening [facility] Start: 2001 Screening for malign ant neoplasm of colon [facility] Start: 1996 Screening for malign ant neoplasm of breast Mammogram Screening [facility] Start: 1975 Urine microalbumin profile DTaP,Tdap,Td Vaccine (1 - Tdap) [facility] Start: 1974 Anxiety Screening Anxiety Screening [facility] Start: 1974 Depression Screening Depression Scre ening [facility] Start: 1974 Hepatitis C screening Hepatitis C Sc [facility] aPTT in Platelet poo r plasma by Coagulation assay [facility] CT guided biopsy [facility] PET+CT Guidance for localization of tumor of Skull base to mid-thigh-- W 18F-FDG IV NM PET/CT SKULL-THIGH SUBSEQUENT Radiology Routine Malignant neoplasm of unspecified part of unspecified bronchus or lung (HCC) 02/12/2025 12:55 PM EDT [facility] Work Phone: [facility] Immunizations Immunization Date Immunization Notes Care Provider Fa louisty 09-18-2020 SARS-CoV-2 (COVID-19 ) mRNA BNT-162b2 vax Bhupendra ROLLINS [facility] 08-28-2020 SARS-CoV-2 (COVID-19 ) mRNA BNT-162b2 vax Bhupendra RIA [facility] 04-03-1998 hepatitis B vaccine, adult dosage Bozena Oliva RN [facility] 10-29-1997 hepatitis B vaccine, adult dosage Bozena Oliva RN [facility] 09-28-1997 hepatitis B vaccine, adult dosage Bozena Oliva RN [facility] Payers Date Payer Category Payer Self-pay 2022 Medicare HUMANA MEDICARE [employer]NA GOLD PLUS [id number] 2022-Present [phone] [place] [id number] [facility] [id number] 2022 Medicare (Managed Care) HU[employer]NA G OLD PLUS [id number] 2022 Medicare [id number] 1958 Unknown [id number] 1955 Unknown [id number] 1955 Unknown [id number] [id number] 1955 Unknown [id number] [id number] 1955 Unknown [id number] [id number] 1955 Unknown [id number] [id number] 1955 Unknown [id number] Private Health [place] [facility] [id number] Unknown [id number] Social History Date Type Detail Facility Tobacco smoking stat [facility] Unknown if ever smoked [facility] Work Phone: Start: 1955 Sex Assigned At Female F [facility] Start: 1955 Sex assigned at Not on file [facility] Start: 08-21-2024 End: 02-12-2025 Gender identity Not on file [facility] Start: 05-25-2024 End: 02-12-2025 Tobacco smoking status Never smoked tobacco (finding) [facility] Tobacco smoking status Never [facility] Start: 08-03-2024 End: 10-09-2024 Sex Female (finding) [facility] Start: 08-21-2024 End: 02-12-2025 History of Social function [facility] History of tobacco use Passive smoker [facility] Start: 02-12-2025 Tobacco use and exposure Smokeless tobacco non-user [facility] Start: 02-12-2025 Alcoholic beverage intake Lifetime non-drinker (finding) [facility] Functional Status Date Assessment Result Facility 08-30-2024 Functional Status N/A [facility] 05-25-2024 Functional Status N/A [facility] General Surgery [place] Clinical Notes 08-08-2021 to 02-20-2025 Minerva Lindsay MD - 02/20/2025 9:58 AM Dashawn Aguayo LPN - 02/16/2025 2:29 PM EDTTelephone Encounter - Ana Riojas RN - 02/20/2025 9:35 AM Bozena Kennedy RN - 02/12/2025 1:46 PM EDT Note Date & Type Note Facility 02-20-2025 Note HNO ID: [id number] Author: MINERVA LINDSAY MD Service: ? Author Type: Physician Type: Progress Notes Filed: 02/20/2025 11:55 Note Text: THORACIC ONCOLOGY RETURN VISIT (Elements copied from my note dated November 15, have been reviewed and updated where appropriate, and all reflect current assessment and medical decision making from today's encounter, February 16, 2025) ASSESSMENT: [id number], stage IVB NSCLC adenocarcinoma. PD-L 13% Molec negative. Status post 4 cycles of carboplatin pemetrexed and pembrolizumab. Treatment held due to renal failure. TREATMENT: carboplatin pemetrexed and pembrolizumab. 04/18-07/11/2024 Pemetrexed 08/29/24 and 10/03/2024 PLAN: Based on current PET scan, there is evidence of disease progression. Would recommend to proceed with chemoimmunotherapy combination utilizing carbotaxol pembrolizumab or carbotaxol ipi/nivo. Alternatively, second line treatment with docetaxel and ramucirumab would be appropriate. Using paclitaxel in lieu of pemetrexed based on pathology report showing tubular injury secondary to pemetrexed rather than immune mediated. HPI: Isela De La Rosa presents to [facility] today for thoracic oncology evaluation. She is [...] Right right arm TOTAL ABDOM HYSTERECTOMY MEDICATIONS: citalopram hydrobromide (CELEXA) 10 mg tablet Take 10 mg by mouth once daily. predniSONE (DELTASONE) 10 mg tablet PLEASE SEE ATTACHED FOR DETAILED DIRECTIONS benzonatate (TESSALON PERLE) 100 mg capsule TAKE 1 CAPSULE BY MOUTH TWICE A DAY FOR COUGHING acetaminophen-codeine (TYLENOL-COD #3) 300-30 mg per tablet TAKE 1-2 TABLETS BY MOUTH EVERY 8 HOURS NEEDED FOR COUGHING ibuprofen (MOTRIN) 600 mg tablet Take 600 [...] for nausea/vomiting. ALLERGIES: ALLERGIES No Known Allergies FAMILY HISTORY Problem Relation Age of Onset Heart disease Mother Heart disease Father Cancer Sister Social History Tobacco Use Smoking status: Never Passive exposure: Past Smokeless tobacco: Never Substance Use Topics Alcohol use: Never Drug use: Never REVIEW OF SYSTEMS GENERAL: No fevers, chills, [...] PERFORMANCE STATUS: 1 PHYSICAL EXAMINATION: Vitals: BP 122/78 Pulse 78 Temp (Src) 97.1 (Temporal) Resp 20 Wt 121 lb 4.1 oz (55.0kg) SpO2 98% VV LABORATORY VALUES: This case ([id number]) was sent to [facility] [employer] for the [employer] Tissue Next and PDL1 22C3 assays. The results read as follows: Detected Alterations and Biomarkers with Associated Treatment Options or Clinical Trials TP53:I195T FRANNY (more content not included)... [facility] 02-20-2025 History of Present illness Narrative Images from the original note were not included. THORACIC ONCOLOGY RETURN VISIT (Elements copied from my note dated November 15, have been reviewed and updated where appropriate, and all reflect current assessment and medical decision making from today's encounter, February 16, 2025) ASSESSMENT: [id number], stage IVB NSCLC adenocarcinoma. PD-L 13% Molec negative. Status post 4 cycles of carboplatin pemetrexed and pembrolizumab. Treatment held due to renal failure. TREATMENT: carboplatin pemetrexed and pembrolizumab. 04/18-07/11/2024 Pemetrexed 08/29/24 and 10/03/2024 PLAN: Based on current PET scan, there is evidence of disease progression. Would recommend to proceed with chemoimmunotherapy combination utilizing carbotaxol pembrolizumab or carbotaxol ipi/nivo. Alternatively, second line treatment with docetaxel and ramucirumab would be appropriate. Using paclitaxel in lieu of pemetrexed based on pathology report showing tubular injury secondary to pemetrexed rather than immune mediated. HPI: Isela Estrella presents to [facility] today for thoracic oncology evaluation. She is [...] Right right arm TOTAL ABDOM HYSTERECTOMY MEDICATIONS: citalopram hydrobromide (CELEXA) 10 mg tablet Take 10 mg by mouth once daily. predniSONE (DELTASONE) 10 mg tablet PLEASE SEE ATTACHED FOR DETAILED DIRECTIONS benzonatate (TESSALON PERLE) 100 mg capsule TAKE 1 CAPSULE BY MOUTH TWICE A DAY FOR COUGHING acetaminophen-codeine (TYLENOL-COD #3) 300-30 mg per tablet TAKE 1-2 TABLETS BY MOUTH EVERY 8 HOURS NEEDED FOR COUGHING ibuprofen (MOTRIN) 600 mg tablet Take 600 [...] for nausea/vomiting. ALLERGIES: ALLERGIES No Known Allergies FAMILY HISTORY Problem Relation Age of Onset Heart disease Mother Heart disease Father Cancer Sister Social History Tobacco Use Smoking status: Never Passive exposure: Past Smokeless tobacco: Never Substance Use Topics Alcohol use: Never Drug use: Never REVIEW OF SYSTEMS GENERAL: No fevers, chills, [...] PERFORMANCE STATUS: 1 PHYSICAL EXAMINATION: Vitals: BP 122/78 Pulse 78 Temp (Src) 97.1 (Temporal) Resp 20 Wt 121 lb 4.1 oz (55.0kg) SpO2 98% VV LABORATORY VALUES: This case ([id number]) [facility] the [place] [address] Tissue Next and PDL1 22C3 assays. The results read as follows: Detected Alterations and Biomarkers with Associated Treatment Options or Clinical Trials TP53:I195T RAF1:P261R Additional Biomarkers Tumor Mutational Hewett (TMB): 4.0 mut/Mb MSI Status: Stable PD-L1 22C3 TPS:13% RADIOLOGY REVIEW: Images reviewed by me in the presence of patient as mentioned in the HPI. PET 02/12 IMPRESSION Since 11/13/2024, PRIMARY AND JUAREZ DISEASE [...] presumed additional lesion along the adenocarcinoma spectrum. DIAGNOSIS: [id number], stage IVB NSCLC adenocarcinoma. PD-L 13% Molec negative. Status post 4 cycles of carboplatin pemetrexed and pembrolizumab. Pemetrexed 08/29/24 and 10/03/2024 ASSESSMENT AND PLAN: 1. Malignant neoplasm of unspecified part of unspecified bronchus or lung (HCC) (C34.90) Secondary malignant neoplasm of bone (HCC) (C79.51) Recent PET scan on February 12 shows increased activity in multiple areas compared to the scan from November 13, indicating disease progression. Notable uptake in the lungs, bones, Previous biopsy suggests kidney function decline is more likely due to pemetrexed rather than immunotherapy. Current creatinine level is 1.3 mg/dL, improved from a peak of 1.8 mg/dL. - Discussed PET scan findings with the patient, highlighting the need for systemic treatment due to widespread disease activity. - Recommended resuming chemotherapy in combination with immunotherapy. Options include re-exposure to cheesh-na-based chemotherapy utilizing carboplatin paclitaxel with pembrolizumab; using taxanes instead of pemetrexed due to renal injury secondary to pemetrexed. Carboplatin paclitaxel ipilimumab and Nivolumab could be another treatment option. - Alternatively, initiating second line tratment with docetaxel ramucirumab would be appropriate. - Patient will follow-up with Dr. Champion to further discuss treatment options. Minerva Lindsay MD CC: Kristi [address] [facility] [place] [address] Brenda Dong MD [facility] [address] Additional intake questions: Has the patient had fever, nausea, vomiting, diarrhea, constipation, fatigue for > 1 week? Yes, fatigue Does the patient have a decreased appetite? Yes Does patient want to see a Industrial Hygiene Engineer? No (yes to any of above refer patient to schedulers for dietitian appointment) ) Does patient have any new or increased numbness or tingling of extremities? No Is patient interested in fertility information? No Does patient need any prescription refills? No Does patient have an advanced directive in place? No, Patient referred to [facility] documented in this encounter [facility] 02-20-2025 Telephone encounter Note Returned call and identified self by name and title. Called Dr. Chester. States that Isela is in his office and he would like to discuss her treatment plan. Message sent to Dr. Lindsay. Dr. Lindsay will call Dr. Chester to discuss. Ana Riojas MSN, RN Specialty Clinical Administrator February 20, 2025 [facility] 02-20-2025 Miscellaneous Notes Returned call and identified self by name and title. Called Dr. Chester. States that Isela is in his office and he would like to discuss her treatment plan. Message sent to Dr. Lindsay. Dr. Lindsay will call Dr. Chester to discuss. MASON Mendez, RN Specialty Clinical Administrator February 20, 2025 Isela De La Rosa('s) Dr. Chester is calling Minerva Lindsay MD today regarding Clinical Administrator - Other (Discuss Patient) Dr. Chester would like a call back to discuss patient. Patient has been identified by name and birthdate. Requesting response back: [phone] (home) [phone] (cell) Tatiana Sow February 20, 2025 documented in this encounter [facility] 02-20-2025 Telephone encounter Note Isela De La Rosa('s) Dr. Chester is calling Minerva Lindsay MD today regarding Clinical Administrator - Other (Discuss Patient) Dr. Chester would like a call back to discuss patient. Patient has been identified by name and birthdate. Requesting response back: [phone] (home) [phone] (cell) Tatiana Sow February 20, 2025 [facility] 02-19-2025 Telephone encounter Note Note also routed to Dr Chester's office to update them that appts had been cancelled. Daria Wilkins RN [facility] 02-19-2025 Miscellaneous Notes Note also routed to Dr Chester's office to update them that appts had been cancelled. Daria Wilkins RN Sim canceled. Call placed to pt due to cancelling appts for simulation tomorrow thru [facility]. Pt states after seeing medical oncology at [facility], she found out things had spread and were a lot worse. She does not plan to do radiation at this time. She has an appt scheduled with DR Chester on 02/20. She does not wish to reschedule and will let us know if she needs anything in the future. PSS/Rad Therapy, please cancel appts. Daria Wilkins RN documented in this encounter [facility] 02-19-2025 Telephone encounter Note Sim canceled. [facility] 02-19-2025 Telephone encounter Note Call placed to pt due to cancelling appts for simulation tomorrow thru [facility]. Pt states after seeing medical oncology at [facility], she found out things had spread and were a lot worse. She does not plan to do radiation at this time. She has an appt scheduled with DR Chester on 02/20. She does not wish to reschedule and will let us know if she needs anything in the future. PSS/Rad Therapy, please cancel appts. Daria Wilkins, RN [facility] 02-16-2025 Note HNO ID: [id number] Author: DASHAWN CHEN LPN Service: ? Author Type: LICENSED NURSE Type: Progress Notes Filed: 02/20/2025 11:55 Note Text: Additional intake questions: Has the patient had fever, nausea, vomiting, diarrhea, constipation, fatigue for > 1 week? Yes, fatigue Does the patient have a decreased appetite? Yes Does patient want to see a Industrial Hygiene Engineer? No (yes to any of above refer patient to schedulers for dietitian appointment) ) Does patient have any new or increased numbness or tingling of extremities? No Is patient interested in fertility information? No Does patient need any prescription refills? No Does patient have an advanced directive in place? No, Patient referred to [facility] Electron[facility] Signed By: Dashawn Chen LPN [facility] 02-13-2025 Telephone encounter Note Spoke to Isela, Confirmed Sim change to 02/20 at 215 [facility] 02-13-2025 Miscellaneous Notes Spoke to Isela, Confirmed Sim change to 02/20 at 215 Sim cancelled for today and rescheduled for Wednesday02/20/25 at 2:45 Please reschedule pre sim consent for 2:15 on 02/20 and notify patient of new appointments Shirley Olvera RT(R)(T) Pt called in stating she isnt feeling well today and wants to reschedule her SIM. She reports having nausea and feeling like she would like to wait until after Wednesday for Simulation when she sees Medical oncology at [facility]. DEANNA- I PSS/Rad Therapy- please coordinate reschedule for early next week. Thank you Daria Wilkins RN documented in this encounter [facility] 02-13-2025 Telephone encounter Note Sim cancelled for today and rescheduled for Wednesday02/20/25 at 2:45 Please reschedule pre sim consent for 2:15 on 02/20 and notify patient of new appointments Shirley Olvera RT(R)(T) [facility] 02-13-2025 Telephone encounter Note Pt called in stating she isnt feeling well today and wants to reschedule her SIM. She reports having nausea and feeling like she would like to wait until after Wednesday for Simulation when she sees Medical oncology at [facility]. DEANNA- I PSS/Rad Therapy- please coordinate reschedule for early next week. Thank you Daria Wilkins, RN [facility] 02-12-2025 Telephone encounter Note Confirmed with patient arrival time, schedule blocked, will add tomorrow [facility] 02-12-2025 Miscellaneous Notes Confirmed with patient arrival time, schedule blocked, will add tomorrow Sim scheduled for tomorrow 02/13 at 1:30 (Ok per DEANNA) Please add pre sim consent on for 1:00 pm and notify patient of appointment and to arrive at 12 :45 Shirley Olvera RT(R)(T) Nurse ed added PSS/RT: please schedule SIM 02/15 no contrast, 4DCT-10 fx Presim consent Nurse ed today May Oliva RN documented in this encounter [facility] 02-12-2025 Telephone encounter Note Sim scheduled for tomorrow 02/13 at 1:30 (Ok per DEANNA) Please add pre sim consent on for 1:00 pm and notify patient of appointment and to arrive at 12 :45 Shirley Olvera RT(R)(T) [facility] 02-12-2025 Note HNO ID: [id number] Author: BOZENA OLIVA RN Service: ? Author Type: Registered Nurse Type: Progress Notes Filed: 02/12/2025 13:48 Note Text: Radiation Therapy - Patient Education Note PATIENT NAME: Isela De aL Rosa PATIENT February 12, 2025 [facility] FACILITY/LOCATION: [facility] READINESS TO LEARN Cognitive Ability: Alert and oriented Motivation to learn: Interested Family Support: Unable to assess - Family not present Instruction provide to: Patient Patient learns best by: Written Instruction - Hand-outs Verbal Instruction Factors effecting learning: None Physical limitations effecting learning: None LEARNING RESPONSE Diagnosis: Pt simulated today for radiation therapy to the lung. Education Topic/Teaching Points: Radiation therapy, Side effects, and OTV: Method of instruction: Written instruction/Handouts Verbal instruction Patient /Family response: Patient verbalized understanding of radiation treatments, side effects, OTV, and transportation. Follow-up plan: Patient instructed to call with any further issues Recommend - Recommend continued instruction and follow up as directed Contact information given. Supplemental material: Informational handouts on External lung packet, Esophagitis/Mucositis, Fatigue, and Skin changes. Referral (recommendation): None, Pt denied need for social work, van service, and physical education professor. Patient has an Onbody or Implanted device: No Signed by: Bozena Oliva RN [facility] 02-12-2025 History of Present illness Narrative Radiation Therapy - Patient Education Note PATIENT NAME: Isela De La Rosa PATIENT February 12, 2025 [facility] FACILITY/LOCATION: [facility] READINESS TO LEARN Cognitive Ability: Alert and oriented Motivation to learn: Interested Family Support: Unable to assess - Family not present Instruction provide to: Patient Patient learns best by: Written Instruction - Hand-outs Verbal Instruction Factors effecting learning: None Physical limitations effecting learning: None LEARNING RESPONSE Diagnosis: Pt simulated today for radiation therapy to the lung. Education Topic/Teaching Points: Radiation therapy, Side effects, and OTV: Method of instruction: Written instruction/Handouts Verbal instruction Patient /Family response: Patient verbalized understanding of radiation treatments, side effects, OTV, and transportation. Follow-up plan: Patient instructed to call with any further issues Recommend - Recommend continued instruction and follow up as directed Contact information given. Supplemental material: Informational handouts on External lung packet, Esophagitis/Mucositis, Fatigue, and Skin changes. Referral (recommendation): None, Pt denied need for social work, van service, and physical education professor. Patient has an Onbody or Implanted device: No Signed by: Bozena Oliva RN documented in this encounter [facility] 02-12-2025 Telephone encounter Note Nurse ed added [facility] 02-12-2025 Telephone encounter Note PSS/RT: please schedule SIM 02/15 no contrast, 4DCT-10 fx Presim consent Nurse ed today Thanks Bozena Oliva RN [facility] 02-12-2025 Note HNO ID: [id number] Author: MAIRA ROGERS MA Service: ? Author Type: Instructor Watch Assembly Type: Progress Notes Filed: 02/13/2025 09:16 Note Text: Status: Patient states there is no possibility she is at this time. Pacemaker/Defibrillator No Previous Cancer(s) No Previous Radiation No Lupus/Scleroderma No On body monitoring device. patient does have a port [facility] 02-12-2025 Note HNO ID: [id number] Author: Williams APPLE MD Service: ? Author Type: Physician Type: Progress Notes Filed: 02/13/2025 09:16 Note Text: Radiation Oncology - New Patient/Consult Note PATIENT NAME: Isela De La Rosa PATIENT REQUESTING PROVIDER: Dr. Chester DIAGNOSIS: 69 year old female with lung cancer, non-small cell carcinoma, [id number], stage IVB adenocarcinoma. PD-L 13% Molec negative HPI: 69 year old female who presents with above diagnosis, for an opinion regarding the role of radiation therapy in the management of the patient's disease. Final recommendations will be communicated back to the requesting physician by way of the shared medical record, or letter to requesting physician via US mail. Patient initially presented last January with persistent cough. She underwent evaluation including CT chest which demonstrated a 6.2 cm right upper lobe mass as well as mediastinal and hilar adenopathy. She underwent bronchoscopy with biopsy, pathology showing adenocarcinoma. Tumor was positive for cytokeratin 7 and Napsin; negative for cytokeratin 20 and p40. [employer] testing was positive for p53 mutation and RAF1 mutation. PD-L1 was 13%. She underwent staging including PET/CT 03/06/2024 demonstrating: Increased uptake within the right upper lobe mass as well as supraclavicular mediastinal and right hilar adenopathy. Multifocal bony metastasis also described as well as a liver metastasis. She initiated systemic chemotherapy in March consisting of carboplatin pemetrexed pembrolizumab . She received 4 cycles through September 2024. However she developed renal insufficiency. PET scan 11/13/2024 noted significant improvement including within the primary right upper lobe lesion and overall improvement in the skeletal areas of uptake previously described. Due to renal concerns treatment was held. After workup as well as her renal insufficiency was due to pemetrexed as opposed to immune mediated. She has had recent increased cough and dysnea without cp or hemoptysis. She underwent CT chest on 01/31/2025 demonstrating enlarging masslike area right suprahilar region which could be progression or postobstructive consolidation and/or worsening of patient's known neoplasm. Focused ROS: Fatigue: mild Weight loss: None Appetite: fair Nausea: no Shortness of breath: Mild Cough: Mild Hemoptysis: No Dysphagia: No Pain with swallowing: No ALLERGIES No Known Allergies MEDICATIONS: citalopram hydrobromide (CELEXA) 10 mg tablet Take 10 mg by mouth once daily. predniSONE (DELTASONE) 10 mg tablet PLEASE SEE ATTACHED FOR DETAILED DIRECTIONS benzonatate (TESSALON PERLE) 100 mg capsule TAKE 1 CAPSULE BY MOUTH TWICE A DAY FOR COUGHING acetaminophen-codeine (TYLENOL-COD #3) 300-30 mg per tablet TAKE 1-2 TABLETS BY MOUTH EVERY 8 HOURS NEEDED FOR COUGHING ibuprofen (MOTRIN) 600 mg tablet Take 600 [...] every 8 hours as needed for nausea/vomiting. fentaNYL (DURAGESIC) 25 mcg/hr Apply 1 Patch as directed every 72 hours. (Patient not taking: Reported on 02/12/2025) PAST MEDICAL HISTORY Diagnosis Date Adenocarcinoma of right lung (HCC) 2023 Hilar lymphadenopathy Prior radiation therapy, collagen vascular disease, or inflammatory bowel disease: No Any implanted or external electric devices? No PAST SURGICAL HISTORY Procedure Laterality Date PAST SURGICAL HISTORY OF 02/2024 bronchoscopy PAST SURGICAL HISTORY OF Right right arm TOTAL ABDOM HYSTERECTOMY FAMILY HISTORY Problem Relation Age of Onset Heart disease Mother Heart disease Father Cancer Sister Social History Tobacco Use Smoking status: Never Passive exposure: Past Smokeless tobacco: Never Substance Use Topics Alcohol use: Never Drug use: Never COMPLETE REVIEW OF SYSTEMS: GENERAL: feeling well without fatigue, no recent change in weight NECK: denies swelling or pain in neck MUSCULOSKELETAL: denies any painful or swollen joints, no muscle aches NEURO: no numbness or paresthesias and no weakness of the extremities As noted in HPI PHYSICAL EXAM: VS: BP 123/84 (BP Site: Left Arm, BP Position: Sitting, BP Cuff Size: Regular Adult) Pulse 69 Temp 36.2 ?C (97.1 ?F) (Temporal) Resp 16 Ht 160 cm (5' 3 ) Wt 53.3 kg (117 lb 8.1 oz) SpO2 97% BMI 20.82 kg/m? KPS: 90 (more content not included)... [facility] 02-12-2025 History of Present illness Narrative Radiology Service Progress Note DATE OF SERVICE: February 12, 2025 TIME: 11:19 AM PATIENT IDENTITY VERIFICATION COMPLETED USING TWO (2) STANDARD IDENTIFIERS: Name and Date of confirmed by patient verbally. FALL SCREENING: Has the patient had 2 falls in the last year or 1 fall with injury or currently using an Ambulatory Assistive Device (Walker, Cane, Wheelchair, Crutches, etc.)? No PATIENT GENDER DATA: Assigned female at . status: : No status: NO. EXAM: CT -CONTRAST INDUCED NEPHROPATHY RISK FACTORS: Not applicable CREATININE: No results found for: CREAT , EGFROTH , EGFRAA P.O.C.T. RESULTS: N/A February 12, 2025 TREATMENT: N/A IV SITE: Ambulatory: A peripheral IV was started in the Right antecubital site with a Angio cath: 22 gauge. IV SITE APPEARANCE: Clean,Dry and Intact SIGNATURE: Dane Rollins RN PATIENT NAME: Isela De La Rosa DATE: February 12, 2025 TIME: 11:19 AM RADIOLOGY SERVICE PROGRESS NOTE SERVICE DATE: 02/12/2025 SERVICE TIME: 12:39 PM PATIENT IDENTITY VERIFICATION COMPLETED USING TWO (2) STANDARD IDENTIFIERS: Name and Date of confirmed by patient verbally POST EXAM PIV STATUS: Discontinued PROCEDURE TYPE: NM INJECT: PET/CT BODY SCAN. 7.1 mCi F18 FDG. Administered By: . No other medications given.. ADMINISTRATION TIME: 1125 PATIENT DISCHARGED TO: Ambulatory patient, left NM department area. Is this a therapy: No A Diagnostic radioactive procedure has taken place, with no further precautions necessary other than routine body substance precautions. More information regarding radiation safety can be found using this link: [email or web address] SIGNATURE: EMILIA Carter) PATIENT NAME: Isela De La Rosa DATE: February 12, 2025 TIME: 12:39 PM PAGER/CONTACT #: documented in this encounter [facility] 02-12-2025 Note HNO ID: [id number] Author: YAKELIN OHARA RT(R) Service: ? Author Type: Technologist Type: Progress Notes Filed: 02/12/2025 12:40 Note Text: RADIOLOGY SERVICE PROGRESS NOTE SERVICE DATE: 02/12/2025 SERVICE TIME: 12:39 PM PATIENT IDENTITY VERIFICATION COMPLETED USING TWO (2) STANDARD IDENTIFIERS: Name and Date of confirmed by patient verbally POST EXAM PIV STATUS: Discontinued PROCEDURE TYPE: NM INJECT: PET/CT BODY SCAN. 7.1 mCi F18 FDG. Administered By: . No other medications given.. ADMINISTRATION TIME: 1125 PATIENT DISCHARGED TO: Ambulatory patient, left [place] department area. Is this a therapy: No A Diagnostic radioactive procedure has taken place, with no further precautions necessary other than routine body substance precautions. More information regarding radiation safety can be found using this link: [email or web address] SIGNATURE: RT Emma(R) PATIENT NAME: Isela De La Rosa DATE: February 12, 2025 TIME: 12:39 PM PAGER/CONTACT #: [facility] 02-12-2025 Note HNO ID: [id number] Author: DANE ROLLINS RN Service: ? Author Type: Registered Nurse Type: Progress Notes Filed: 02/12/2025 11:20 Note Text: Radiology Service Progress Note DATE OF SERVICE: February 12, 2025 TIME: 11:19 AM PATIENT IDENTITY VERIFICATION COMPLETED USING TWO (2) STANDARD IDENTIFIERS: Name and Date of confirmed by patient verbally. FALL SCREENING: Has the patient had 2 falls in the last year or 1 fall with injury or currently using an Ambulatory Assistive Device (Walker, Cane, Wheelchair, Crutches, etc.)? No PATIENT GENDER DATA: Assigned female at . status: : No status: NO. EXAM: CT -CONTRAST INDUCED NEPHROPATHY RISK FACTORS: Not applicable CREATININE: No results found for: CREAT , EGFROTH , EGFRAA P.O.C.T. RESULTS: N/A February 12, 2025 TREATMENT: N/A IV SITE: Ambulatory: A peripheral IV was started in the Right antecubital site with a Angio cath: 22 gauge. IV SITE APPEARANCE: Clean,Dry and Intact SIGNATURE: Dane Rollins RN PATIENT NAME: Isela De La Rosa DATE: February 12, 2025 TIME: 11:19 AM [facility] 02-12-2025 Note Education (RADTSA) ISELA DE LA ROSA ([id number]) 1955 F Date Time Provider Department 02/12/25 BOZENA OLIVA Reason for Visit: Patient Education [91] Primary Visit Diagnosis:Malignant neoplasm of unspecified part of unspecified bronchus or lung (HCC) [C34.90] During your visit today, we recorded the following information about you: Allergies As of Date: 02/12/2025 (No Known Allergies) Date Reviewed: 02/12/2025 Reviewed by: Maira Rogers MA - Fully Assessed Prescriptions as of 02/12/2025 - citalopram hydrobromide (CELEXA) 10 mg tablet Take 10 mg by mouth once daily. - predniSONE (DELTASONE) 10 mg tablet PLEASE SEE ATTACHED FOR DETAILED DIRECTIONS - benzonatate (TESSALON PERLE) 100 mg capsule TAKE 1 CAPSULE BY MOUTH TWICE A DAY FOR COUGHING - acetaminophen-codeine (TYLENOL-COD #3) 300-30 mg per tablet TAKE 1-2 TABLETS BY MOUTH EVERY 8 HOURS NEEDED FOR COUGHING - fentaNYL (DURAGESIC) 25 mcg/hr Apply 1 [...] every 8 hours as needed for nausea/vomiting. Encounter Status:Closed by BOZENA OLIVA on 02/12/25 [facility] 02-07-2025 Telephone encounter Note Images uploaded. [facility] 02-07-2025 Miscellaneous Notes Images uploaded. PET scheduled 02/12/2025 with an arrival time of 11:15 and a scan time of 12:30. Consult with DEANNA following at 2:00 pm. LM for patient to call back and confirm these appointments Per Dr Apple, PET can be before or after consult. We will also need to get images/films from [employer] pushed to our system. Thank you Daria Wilkins, RN Discussed with Dr. Chester on phone. Please arrange to have patient come in for evaluation. Also order PET scan. Please mention I talked with Dr. Chester when talking with pt. documented in this encounter [facility] 02-07-2025 Telephone encounter Note PET scheduled 02/12/2025 with an arrival time of 11:15 and a scan time of 12:30. Consult with DEANNA following at 2:00 pm. LM for patient to call back and confirm these appointments [facility] 02-07-2025 Telephone encounter Note Per Dr Apple, PET can be before or after consult. We will also need to get images/films from [employer] to our system. Thank you Daria Wilkins, RN [facility] 02-07-2025 Telephone encounter Note Discussed with Dr. Chester on phone. Please arrange to have patient come in for evaluation. Also order PET scan. Please mention I talked with Dr. Chester when talking with pt. [facility] 11-16-2024 Note HNO ID: [id number] Author: MINERVA LINDSAY MD Service: ? Author Type: Physician Type: Progress Notes Filed: 11/20/2024 01:27 Note Text: THORACIC ONCOLOGY RETURN VISIT (Elements copied from my note dated 08/21, have been reviewed and updated where appropriate, and all reflect current assessment and medical decision making from today's encounter, November 15, 2024) ASSESSMENT: [id number], stage IVB NSCLC adenocarcinoma. PD-L 13% Molec negative. Status post 4 cycles of carboplatin pemetrexed and pembrolizumab. TREATMENT: carboplatin pemetrexed and pembrolizumab. 04/18-07/11/2024 Pemetrexed 08/29/24 and 10/03/2024 PLAN: Based on current PET scan, there is no evidence of disease progression. Would recommend to continue holding any treatment at this point and give sometime for potential renal improvement. Will get follow up CT scan in 2-3 months and decide upon further management accordingly. Will review the kidney biopsy at [facility], however, per current pathology report it looks like tubular injury probably secondary to pemetrexed rather than immune mediated. HPI: Isela De La Rosa presents to [facility] today for thoracic oncology evaluation. She is [...] PERFORMANCE STATUS: 1 PHYSICAL EXAMINATION: Vitals: BP 171/89 Pulse 67 Temp 98.1 Resp 18 Wt 124 lb 12.5 oz (56.6kg) SpO2 99% General: WD/WN woman in NAD. HEENT: Sclerae anicteric, conjunctiva non-injected. Wearing mask. No temporal wasting. Lungs: easy work of breathing. Symmetric chest movement Abdominal: No obvious ascites or organomegaly. Extremities: No digital clubbing, cyanosis, or edema. Skin: No rash, petechiae or purpura. Neurological: AOx3, mood and affect appropriate. Gait nml. LABORATORY VALUES: This case ([id number]) was sent to [facility] for the [place] [address] Tissue Next and PDL1 22C3 assays. The results read as follows: Detected Alterations and Biomarkers with Associated Treatment Options or Clinical Trials TP53:I195T RAF1:P261R Additional Biomarkers Tumor Mutational Hewett (TMB): 4.0 mut/Mb MSI Status: Stable PD-L1 22C3 TPS:13% RADIOLOGY REVIEW: Images reviewed by me in the presence of patient as mentioned in the HPI. DI (more content not included)... [facility] 11-15-2024 Note HNO ID: [id number] Author: MERLY FORTE LPN Service: ? Author Type: LICENSED NURSE Type: Progress Notes Filed: 11/15/2024 16:28 Note Text: Additional intake questions: Has the patient had fever, nausea, vomiting, diarrhea, constipation, fatigue for > 1 week? Yes, fatigue and Provider Notified Does the patient have a decreased appetite? Yes Does patient want to see a Industrial Hygiene Engineer? No (yes to any of above refer patient to schedulers for dietitian appointment) ) Does patient have any new or increased numbness or tingling of extremities? Yes, pt. States right hand has tingling Is patient interested in fertility information? NA Does patient need any prescription refills? No Does patient have an advanced directive in place? No Electronically Signed By: Merly Forte LPN [facility] 11-10-2024 Telephone encounter Note Pathology slides for patient's kidney biopsy have been sent to [facility] pathology lab per request from Dr. Chester by education administrative assistant Tatiana. Sarah Elkins RN Specialty Clinical Administrator [facility] 11-10-2024 Miscellaneous Notes Pathology slides for patient's kidney biopsy have been sent to [facility] pathology lab per request from Dr. Chester by education administrative assistant Tatiana. Sarah Elkins, RN Specialty Clinical Administrator [facility] Isela De La Rosa('s) caregiver: Dr. Chester's office is calling Minerva Lindsay MD today regarding Clinical Administrator - Other Dr. Chester's office called to see if Dr. Lindsay requested the pathology slides for patient's kidney biopsy yet to review. If not, could he do so, per the conversation both doctor's had previously. If request hasn't been made yet, it should be sent to [facility], pathology lab Patient has been identified by name and birthdate. Yvette Bassett November 07, 2024 documented in this encounter [facility] 11-07-2024 Telephone encounter Note Isela De La Rosa('s) caregiver: Dr. Chester's office is calling Minerva Lindsay MD today regarding Clinical Administrator - Other Dr. Chester's office called to see if Dr. Lindsay requested the pathology slides for patient's kidney biopsy yet to review. If not, could he do so, per the conversation both doctor's had previously. If request hasn't been made yet, it should be sent to [facility], pathology lab Patient has been identified by name and birthdate. Yvette Bassett November 07, 2024 [facility] 10-24-2024 History of Present illness Narrative Status: Patient states there is no possibility she is at this time. Pacemaker/Defibrillator No Previous Cancer(s) No Previous Radiation No Lupus/Scleroderma No On body monitoring device. patient does have a port Radiation Oncology - New Patient/Consult Note PATIENT NAME: Isela De La Rosa PATIENT REQUESTING PROVIDER: Dr. Chester DIAGNOSIS: 69 year old female with lung cancer, non-small cell carcinoma, [id number], stage IVB adenocarcinoma. PD-L 13% Molec negative HPI: 69 year old female who presents with above diagnosis, for an opinion regarding the role of radiation therapy in the management of the patient's disease. Final recommendations will be communicated back to the requesting physician by way of the shared medical record, or letter to requesting physician via US mail. Patient initially presented last January with persistent cough. She underwent evaluation including CT chest which demonstrated a 6.2 cm right upper lobe mass as well as mediastinal and hilar adenopathy. She underwent bronchoscopy with biopsy, pathology showing adenocarcinoma. Tumor was positive for cytokeratin 7 and Napsin; negative for cytokeratin 20 and p40. Guardant testing was positive for p53 mutation and RAF1 mutation. PD-L1 was 13%. She underwent staging including PET/CT 03/06/2024 demonstrating: Increased uptake within the right upper lobe mass as well as supraclavicular mediastinal and right hilar adenopathy. Multifocal bony metastasis also described as well as a liver metastasis. She initiated systemic chemotherapy in March consisting of carboplatin pemetrexed pembrolizumab . She received 4 cycles through September 2024. However she developed renal insufficiency. PET scan 11/13/2024 noted significant improvement including within the primary right upper lobe lesion and overall improvement in the skeletal areas of uptake previously described. Due to renal concerns treatment was held. After workup as well as her renal insufficiency was due to pemetrexed as opposed to immune mediated. She has had recent increased cough and dysnea without cp or hemoptysis. She underwent CT chest on 01/31/2025 demonstrating enlarging masslike area right suprahilar region which could be progression or postobstructive consolidation and/or worsening of patient's known neoplasm. Focused ROS: Fatigue: mild Weight loss: None Appetite: fair Nausea: no Shortness of breath: Mild Cough: Mild Hemoptysis: No Dysphagia: No Pain with swallowing: No ALLERGIES No Known Allergies MEDICATIONS: citalopram hydrobromide (CELEXA) 10 mg tablet Take 10 mg by mouth once daily. predniSONE (DELTASONE) 10 mg tablet PLEASE SEE ATTACHED FOR DETAILED DIRECTIONS benzonatate (TESSALON PERLE) 100 mg capsule TAKE 1 CAPSULE BY MOUTH TWICE A DAY FOR COUGHING acetaminophen-codeine (TYLENOL-COD #3) 300-30 mg per tablet TAKE 1-2 TABLETS BY MOUTH EVERY 8 HOURS NEEDED FOR COUGHING ibuprofen (MOTRIN) 600 mg tablet Take 600 [...] every 8 hours as needed for nausea/vomiting. fentaNYL (DURAGESIC) 25 mcg/hr Apply 1 Patch as directed every 72 hours. (Patient not taking: Reported on 02/12/2025) PAST MEDICAL HISTORY Diagnosis Date Adenocarcinoma of right lung (HCC) 2023 Hilar lymphadenopathy Prior radiation therapy, collagen vascular disease, or inflammatory bowel disease: No Any implanted or external electric devices? No PAST SURGICAL HISTORY Procedure Laterality Date PAST SURGICAL HISTORY OF 02/2024 bronchoscopy PAST SURGICAL HISTORY OF Right right arm TOTAL ABDOM HYSTERECTOMY FAMILY HISTORY Problem Relation Age of Onset Heart disease Mother Heart disease Father Cancer Sister Social History Tobacco Use Smoking status: Never Passive exposure: Past Smokeless tobacco: Never Substance Use Topics Alcohol use: Never Drug use: Never COMPLETE REVIEW OF SYSTEMS: GENERAL: feeling well without fatigue, no recent change in weight NECK: denies swelling or pain in neck MUSCULOSKELETAL: denies any painful or swollen joints, no muscle aches NEURO: no numbness or paresthesias and no weakness of the extremities As noted in HPI PHYSICAL EXAM: VS: BP 123/84 (BP Site: Left Arm, BP Position: Sitting, BP Cuff Size: Regular Adult) Pulse 69 Temp 36.2 C (97.1 F) (Temporal) Resp 16 Ht 160 cm (5' 3 ) Wt 53.3 kg (117 lb 8.1 oz) SpO2 97% BMI 20.82 kg/m KPS: 90 General Appearance: Alert and oriented. No acute distress. HEENT: NCAT. Sclera anicteric. PERRL. EOMI. Neck: Normal ROM. No palpable cervical or supraclavicular adenopathy. Chest: No respiratory distress. Lungs clear to auscultation decreased breath sounds right lung field Heart: Regular rate and rhythm. Abdomen: Soft. Nontender. Nondistended. Musculoskeletal: No edema. Normal ROM in extremities. No bone or spine tenderness. Neuro: Speech fluent. Gait normal. No focal deficits. Skin: No rashes noted Lymphatics: No palpable lymphadenopathy. Hematologic: No signs of active bleeding. RADIOLOGY/LABORATORY DATA: PET/CT 02/12/2025: Results pending though it does appear she has multiple areas of abnormal uptake within the skeletal system as well as right upper lung mediastinal area. Also notable diffuse thyroid uptake. ASSESSMENT AND PLAN: Lung cancer, non-small cell carcinoma, [id number], stage IVB adenocarcinoma. PD-L 13% Molec negative Patient has progressive local and metastatic disease after being off of systemic therapy due to acute renal insufficiency issues. She is somewhat symptomatic from her lung disease. I do feel there may be a role for local radiation and would favor short course, 2-week palliative type feel to the right suprahilar mass. Will discuss further with her other caregivers. Certainly other option would be reinitiating systemic therapy i.e. immunotherapy first. Given multiple areas of skeletal metastasis would not favor more protracted concurrent course of treatment. Patient will come back next couple days for further discussion of possible simulation. Signed by: Williams Apple MD cc: Brenda Dong [facility] [place] [address] Dr. Chester documented in this encounter [facility] 10-17-2024 Telephone encounter Note Received a call from Dr. Chester's office. Dr. Chester would like to discuss Isela's treatment plan and elevated kidney function, to coordinate a new plan for her. Let Dr. Chester know that Dr. Toro is covering for Dr. Lindsay. Message sent to Dr. Toro with request to return Dr. Chester's phone call. MASON Mendez, RN Specialty Clinical Administrator October 17, 2024 [facility] 10-17-2024 Miscellaneous Notes Received a call from Dr. Chester's office. Dr. Chester would like to discuss Isela's treatment plan and elevated kidney function, to coordinate a new plan for her. Let Dr. Chester know that Dr. Toro is covering for Dr. Lindsay. Message sent to Dr. Toro with request to return Dr. Chester's phone call. MASON Mendez, RN Specialty Clinical Administrator October 17, 2024 Isela De La Rosa(thanh) Anay/Dr. Chester's office is calling Minerva Lindsay MD today regarding Clinical Administrator - Other (Speak to nurse ) Anay called to speak with provider's nurse regarding patient. Sent secure chat to Hanna. Alvarado. Patient has been identified by name and birthdate. Requesting response back: [phone] (home) [phone] (cell) Tatiana Sow October 17, 2024 documented in this encounter [facility] 10-17-2024 Telephone encounter Note Isela Ferreira) Anay/Dr. Chester's office is calling Minerva Lindsay MD today regarding Clinical Administrator - Other (Speak to nurse ) Anay called to speak with provider's nurse regarding patient. Sent secure chat to Hanna. Alvarado. Patient has been identified by name and birthdate. Requesting response back: [phone] (home) [phone] (cell) Tatiana Sow October 17, 2024 [facility] 08-25-2024 Telephone encounter Note Left message introducing self by name and title asking to return call. Sarah Elkins RN Specialty Clinical Administrator [facility] 08-25-2024 Miscellaneous Notes Left message introducing self by name and title asking to return call. Sarah Elkins RN Specialty Clinical Administrator [facility] Katie from Dr. Sia torres at [facility] states order for kidney biopsy needs to be placed [facility], they are not able to submit the order, must be done by [facility] facility. Patient has been identified by name and birthdate. Duration of symptoms: N/A Requesting response back: Katie can be reached at [phone] if needed. [phone] (home) [phone] (cell) Sergo Staples August 25, 2024 documented in this encounter [facility] 08-25-2024 Telephone encounter Note Katie from Dr. Sia torres at [facility] states order for kidney biopsy needs to be placed [facility], they are not able to submit the order, must be done by [facility] facility. Patient has been identified by name and birthdate. Duration of symptoms: N/A Requesting response back: Katie can be reached at [phone] if needed. [phone] (home) [phone] (cell) Sergo Schaeffer [facility] August 25, 2024 [facility] 08-22-2024 Telephone encounter Note Returned call and identified self by name and title. Called Dr. Chester's office and let them know that Dr. Lindsay would like Dr. Chester to arrange the kidney biopsy. MASON Mendez, RN Specialty Clinical Administrator August 22, 2024 [facility] 08-22-2024 Miscellaneous Notes Returned call and identified self by name and title. Called Dr. Chester's office and let them know that Dr. Lindsay would like Dr. Chester to arrange the kidney biopsy. MASON Mendez, RN Specialty Clinical Administrator August 22, 2024 Isela De La Rosa('s) caregiver: Dr. Chester's office is calling Minerva Lindsay MD today regarding the suggestion of Dr. Lindsay that patient have a biopsy on her kidney. Dr. Chester wants to know if Dr. Lindsay is going to arrange this or does he want Dr. Chester to arrange it. Patient has been identified by name and birthdate. Requesting response back: [phone] - Dr. Chester's office Yvette Bassett August 22, 2024 documented in this encounter [facility] 08-22-2024 Telephone encounter Note Isela De La Rosa('s) caregiver: Dr. Chester's office is calling Minerva Lindsay MD today regarding the suggestion of Dr. Lindsay that patient have a biopsy on her kidney. Dr. Chester wants to know if Dr. Lindsay is going to arrange this or does he want Dr. Chester to arrange it. Patient has been identified by name and birthdate. Requesting response back: [phone] - Dr. Chester's office Yvette Bassett August 22, 2024 [facility] 08-21-2024 Note HNO ID: [id number] Author: MINERVA LINDSAY MD Service: ? Author Type: Physician Type: Progress Notes Filed: 08/21/2024 15:09 Note Text: THORACIC ONCOLOGY NEW CONSULT VISIT ASSESSMENT: [id number], stage IVB NSCLC adenocarcinoma. PD-L 13% Molec [...] true progression of disease. CC: Kristi Chester [address] [place] [address] [address] [facility] [address] Brenda Dong MD [address] [facility] [address] Chester for an opinion regarding Ms. Isela De La Rosa, and my final recommendations will be communicated back to the requesting physician by way of shared medical record or letter via US mail. HPI: Isela De La Rosa presents to [facility] today for thoracic oncology evaluation. She is [...] appropriate. Gait nml. LABORATORY VALUES: This case ([id number]) was sent to [facility] [place] [address] Tissue Next (more content not included)... [facility] 08-21-2024 History of Present illness Narrative THORACIC ONCOLOGY NEW CONSULT VISIT ASSESSMENT: [id number], stage IVB NSCLC adenocarcinoma. PD-L 13% Molec [...] true progression of disease. CC: Kristi Chester [address] [place] [address] [address] [facility] [address] Brenda Dong MD [address] [facility] [address] Chester for an opinion regarding Ms. Isela De La Rosa, and my final recommendations will be communicated back to the requesting physician by way of shared medical record or letter via US mail. HPI: Isela De La Rosa presents to [facility] today for thoracic oncology evaluation. She is [...] appropriate. Gait nml. LABORATORY VALUES: This case ([id number]) was sent to [facility] for the [employer] Tissue Next and PDL1 22C3 assays. The results read as follows: Detected Alterations and Biomarkers with Associated Treatment Options or Clinical Trials TP53:I195T RAF1:P261R Additional Biomarkers Tumor Mutational Hewett (TMB): 4.0 mut/Mb MSI Status: Stable PD-L1 22C3 TPS:13% RADIOLOGY REVIEW: Images reviewed by me in the presence of patient as mentioned in the HPI. DIAGNOSIS: [id number], stage IVB NSCLC adenocarcinoma. PD-L 13% Molec [...] have any other concerns or issues. Minerva Lindsay MD MS Minerva Lindsay MD Additional intake questions: Has the patient had fever, nausea, vomiting, diarrhea, constipation, fatigue for > 1 week? Yes, fatigue and Provider Notified Does the patient have a decreased appetite? Yes, getting better Does patient want to see a Industrial Hygiene Engineer? No (yes to any of above refer patient to schedulers for dietitian appointment) ) Does patient have any new or increased numbness or tingling of extremities? No Is patient interested in fertility information? No Does patient need any prescription refills? No Does patient have an advanced directive in place? Yes, no copy found in [facility] Patient referred to [facility] documented in this encounter [facility] 08-21-2024 Note HNO ID: [id number] Author: DASHAWN CHEN LPN Service: ? Author Type: LICENSED NURSE Type: Progress Notes Filed: 08/21/2024 15:09 Note Text: Additional intake questions: Has the patient had fever, nausea, vomiting, diarrhea, constipation, fatigue for > 1 week? Yes, fatigue and Provider Notified Does the patient have a decreased appetite? Yes, getting better Does patient want to see a Industrial Hygiene Engineer? No (yes to any of above refer patient to schedulers for dietitian appointment) ) Does patient have any new or increased numbness or tingling of extremities? No Is patient interested in fertility information? No Does patient need any prescription refills? No Does patient have an advanced directive in place? Yes, no copy found in [facility] Patient referred to [facility] Electronically Signed By: Dashawn Chen LPN [facility] 08-03-2024 Evaluation note Diagnosis Onset Date Resolution LEIDA (acute kidney injury) acute August 03 3:15pm Hypokalemia acute August 03, 2024 3:15pm Lung cancer acute August 03, 2024 3:15pm [facility] Work Phone: 1(477) 689-261812-11-2024 Evaluation note* Diagnosis Onset Date Resolution Status Admit Date LEIDA (acute kidney injury) acute July 05, 2024 9:28am Hypokalemia acute June 9:28am Lung cancer acute June 9:28am LEIDA (acute kidney injury) acute August 03, 2024 3:15pm Hypokalemia acute August 03, 2024 3:15pm Lung cancer acute August 03, 2024 3:15pm [facility] Work Phone: 1(418) 818-851210-31-2024 NoteGeneral Surgery Office/Clinic Note Chief Complaint consultation for port HPI Staff 69 year old female presents on consultation from Dr. Chester for port placement. Patient with adenocarcinoma of right lung. History of Present Illness 69 yo female with h/o adenocarcinoma of right upper lobe of lung, referred for [id number]-[id number] insertion; patient has already begun chemotherapy via [...] upper lobe, right bronchus or lung) plan [id number]-o-pmhw insertion under anesthesia at [facility], informed consent obtained. Ancef 2 gms [...] Recorded SARS-CoV-2 (COVID-19) mRNA BNT-162b2 vax 08/28/[address] [facility] HospitalComment on above:Result Comment: Electronically Signed By: Bhupendra ROLLINS MD\Date and Time Signed: 05/25/24 16:13 [id number] NotePatient: Isela Estrella Procedure Summary Date: 04/06/24 [facility] Anesthesia Start: 1126 Anesthesia [...] were no known notable events for this encounter.[facility]09-12-2024 NoteAirway Date/Time: 04/06/2024 11:32 AM Urgency: elective Airway not difficult General Information and Staff Patient location during procedure: OR Anesthesiologist: Kevon Lamar MD Resident/CYBER INTELLIGENCE ANALYST/CAA: Ananda Villatoro MD Performed: resident/CYBER INTELLIGENCE ANALYST/CAA Indications and Patient Condition Indications for airway [...] (cm): 22 Number of attempts at approach: 1Un[facility]-2024 NotePatient: Isela Estrella Procedure Summary Date: 04/06/24 [facility] Anesthesia Start: 1126 Anesthesia [...] respond and follow verbal commands throughout transport processUniversity of [facility]itchie [id number] NotePatient: Isela De La Rosa Procedure Information Date/Time: 04/06/24 1130 Scheduled providers: Rom Melton MD Procedure: BRON[facility]OS[facility] Relevant Problems No relevant [...] with 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 [facility] Chester. Patient needs more tissue for molecular testing. EBUS order [facility]Un[facility]-14-2022 NotePROCEDURE: XR KNEE LT 4V or > [...] Electronically authenticated by: CARIE VELÁZQUEZ Date: 2021-08-08 14:54[facility] No data available for this section [facility] General Surgery [place] Evaluation noteNo assessment information available [facility] Work Phone: Evaluation note* Diagnosis Malignant neoplasm of unspecified part of unspecified bronchus or lung (HCC)- [facility] Diagnosis Onset Date Resolution Status Admit Date Anemia of chronic disease acute January 25, 2025 2:43pm Hypokalemia acute January 25 2:43pm Lung cancer acute January 25 2:43pm Stage 3 chronic kidney disease nonea ctive January 25, 2025 2:43pm [facility] Work Phone: Evaluation note* Diagnosis Malignant neoplasm of unspecified part of unspecified bronchus or lung (HCC)- Primary documented in this encounter [facility] note* Diagnosis Malignant neoplasm of unspecified part of unspecified bronchus or lung (HCC)- Primary documented in this encounter [facility] note* Diagnosis Malignant neoplasm of unspecified part of unspecified bronchus or lung (HCC) documented in this encounter [facility] note* Diagnosis Malignant neoplasm of unspecified part of unspecified bronchus or lung (HCC) 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 Work Phone: Summary Purpose Family History Relationship Condition Age [...] chronic kidney disease January 25, 2025 2:43pm Chief Complaint Admit Date Unknown July 17, [...] 2024 9:28am LEIDA (acute kidney injury) August 03 2 025 3:15pm Hypokalemia August 03, 2024 3: 15pm Lung cancer August 03, 2024 3: 15pm Additional Source Comments INFORMATION SOURCE (unrecogn ized section and content) DATE CREATED AUTHOR 08/13/2021 [facility] DATE CREATED AUTHOR AUTHOR'S ORGANIZ ATION [address] [facility] DATE CREATED AUTHOR AUTHOR'S ORGANIZ ATION 07/20/2024 [facility] DATE CREATED AUTHOR AUTHOR'S ORGANIZ ATION 09/01/2024 [facility] DATE CREATED AUTHOR AUTHOR'S ORGANIZ ATION 09/21/2024 [facility] DATE CREATED AUTHOR AUTHOR'S ORGANIZ ATION 02/21/2025 [facility] Care Teams (unrecognized sec tion and content) Team Status: Inactive Member Role Status Dates Vj CROWLEY DO Attending Provider Active Start: February 15, 2024 End: February 15, 2024 Lease Analyst Relationship Specialty Start Date End Date Brenda Dong MD [address] [place] [address] PCP - General Family Medicine 03/02/24 Team Status: Active Member Role Status Dates Brenda Dong MD Primary Care Provider Active Team Status: Inactive Member Role Status Dates Daniella Diego MD Attending Provider Active Start : July 05, 2024 End: July 05, 2024 NON STAFF Primary Care Provider Active Start: July 05, 2024 End: July 05, 2024 Team Status: Inactive Member Role Status Lashae Chester MD Attending Provider Active St art: July 17, 2024 End: July 17, 2024 Team Status: Inactive Member Role Status Dates Daniella Diego MD Attending Provider Active Start : August 03, 2024 End: August 03, 2024 Brenda Dong MD Primary Care Provider Active Start: August 03, 2024 End: August 03, 2024 Lease Analyst Relationship Specialty Start Date End Date Brenda Dong MD [address] [place], [place] [id number] PCP - General Family Medicine 03/02/24 Kristi Chester MD [address] [place], [place] [id number] Referring Hematology/Oncology 08/15/24 Lease Analyst Relationship Specialty Start Date End Date Brenda Dong MD [address] [place], [place] [id number] PCP - General Family Medicine 03/02/24 Kristi Chester MD [address] [place] [id number] Referring Hematology/Oncology 08/15/24 Team Status: Inactive Member Role Status Dates Brenda Dong MD Primary Care Provider Active Start: October 09, 2024 End: October 09, 2024 Daniella Diego MD Attending Provider Active Start : October 09, 2024 End: October 09, 2024 Lease Analyst Relationship Specialty Start Date End Date Brenda Dong MD [address] [place] [id number] PCP - General Family Medicine 03/02/24 Kristi Chester MD [address] [place] [address] Referring Hematology/Oncology 08/15/24 Sarah Elkins RN Specialty Clinical Administrator Hematology/Oncology 10/26/24 Ana Riojas RN Specialty Clinical Administrator Hematology/Oncology 10/26/24 Team Status: Inactive Member Role Status Dates Brenda Dong MD Primary Care Provider Active Start: January 25, 2025 End: January 25, 2025 Daniella Diego MD Attending Provider Active Start : January 25, 2025 End: January 25, 2025 Lease Analyst Relationship Specialty Start Date End Date Brenda Dong MD [address] [place] [address] PCP - General Family Medicine 03/02/24 Kristi Chester MD [address] [place] [address] Referring Hematology/Oncology 08/15/24 Sarah Elkins RN Specialty Clinical Administrator Hematology/Oncology 10/26/24 Ana Riojas RN Specialty Clinical Administrator Hematology/Oncology 10/26/24 Lease Analyst Relationship Specialty Start Date End Date Brenda Dong MD [address] [place] [address] PCP - General Family Medicine 03/02/24 Kristi Chester MD [address] [place] [address] Referring Hematology/Oncology 08/15/24 Sarah Elkins, PAL[place] Specialty Clinical Administrator Hematology/Oncology 10/26/24 Ana Riojas RN Specialty Clinical Administrator Hematology/Oncology 10/26/24 Lease Analyst Relationship Specialty Start Date End Date Brenda Dong MD [address] [place] [facility] [place] [place] [address] PCP - General Family Medicine 03/02/24 Kristi Chester MD [address] [facility] [place] [place] [address] Referring Hematology/Oncology 08/15/24 Sarah Elkins, RN Specialty Clinical Administrator Hematology/Oncology 10/26/24 Ana Riojas, PAL[place] Specialty Clinical Administrator Hematology/Oncology 10/26/24 Lease Analyst Relationship Specialty Start Date End Date Brenda Dong MD [address] [place] [facility] [place] [place] [address] PCP - General Family Medicine 03/02/24 Kristi Chester MD [address] [facility] [place] [place] [address] Referring Hematology/Oncology 08/15/24 Sarah Elkins, RN Specialty Clinical Administrator Hematology/Oncology 10/26/24 Ana Riojas, RN Specialty Clinical Administrator Hematology/Oncology 10/26/24 Lease Analyst Relationship Specialty Start Date End Date Brenda Dong MD [address] [place] [facility] [place] [address] PCP - General Family Medicine 03/02/24 Kristi Chester MD [address] [facility] [place] [place] [address] Referring Hematology/Oncology 08/15/24 Sarah Elkins, RN Specialty Clinical Administrator Hematology/Oncology 10/26/24 Ana Riojas, PAL[place] Specialty Clinical Administrator Hematology/Oncology 10/26/24 Lease Analyst Relationship Specialty Start Date End Date Brenda Dong MD [address] [place] [address] PCP - General Family Medicine 03/02/24 Kristi Chester MD [address] [place] [address] Referring Hematology/Oncology 08/15/24 Sarah Elkins RN Specialty Clinical Administrator Hematology/Oncology 10/26/24 Ana Riojas RN Specialty Clinical Administrator Hematology/Oncology 10/26/24 Lease Analyst Relationship Specialty Start Date End Date Brenda Dong MD [address] [place] [address] PCP - General Family Medicine 03/02/24 Kristi Chester MD [address] [place] [address] Referring Hematology/Oncology 08/15/24 Sarah Elkins, PAL[place] Specialty Clinical Administrator Hematology/Oncology 10/26/24 Ana Riojas, [place] Specialty Clinical Administrator Hematology/Oncology 10/26/24 Goals (unrecognized section and content) Goals may be documented in a n alternate section No data available for this sectionGoals may be documented in an alternate section No data available for this sectionGoals may be documented in an alternate sectionGoals may be documented in an alternate section Source Comments (unrecognize d section and content) In the event this informatio n is protected by the Federal Confidentiality of Alcohol and Drug Abuse Patient Records regulations: The Federal rules restrict any use of the information to criminally investigate or prosecute any alcohol or drug abuse patient.[facility] the event this information is protected by the Federal Confidentiality of Alcohol and Drug Abuse Patient Records regulations: The Federal rules restrict any use of the information to criminally investigate or prosecute any alcohol or drug abuse patient.[facility] the event this information is protected by the Federal Confidentiality of Alcohol and Drug Abuse Patient Records regulations: The Federal rules restrict any use of the information to criminally investigate or prosecute any alcohol or drug abuse patient.[facility] the event this information is protected by the Federal Confidentiality of Alcohol and Drug Abuse Patient Records regulations: The Federal rules restrict any use of the information to criminally investigate or prosecute any alcohol or drug abuse patient.[facility] the event this information is protected by the Federal Confidentiality of Alcohol and Drug Abuse Patient Records regulations: The Federal rules restrict any use of the information to criminally investigate or prosecute any alcohol or drug abuse patient.[facility]In the event this information is protected by the Federal Confidentiality of Alcohol and Drug Abuse Patient Records regulations: The Federal rules restrict any use of the information to criminally investigate or prosecute any alcohol or drug abuse patient.[facility] HospitalIn the event this information is protected by the Federal Confidentiality of Alcohol and Drug Abuse Patient Records regulations: The Federal rules restrict any use of the information to criminally investigate or prosecute any alcohol or drug abuse patient.[facility] HospitalIn the event this information is protected by the Federal Confidentiality of Alcohol and Drug Abuse Patient Records regulations: The Federal rules restrict any use of the information to criminally investigate or prosecute any alcohol or drug abuse patient.[facility] the event this information is protected by the Federal Confidentiality of Alcohol and Drug Abuse Patient Records regulations: The Federal rules restrict any use of the information to criminally investigate or prosecute any alcohol or drug abuse patient.[facility]In the event this information is protected by the Federal Confidentiality of Alcohol and Drug Abuse Patient Records regulations: The Federal rules restrict any use of the information to criminally investigate or prosecute any alcohol or drug abuse patient.[facility] HospitalIn the event this information is protected by the Federal Confidentiality of Alcohol and Drug Abuse Patient Records regulations: The Federal rules restrict any use of the information to criminally investigate or prosecute any alcohol or drug abuse patient.[facility] HospitalIn the event this information is protected by the Federal Confidentiality of Alcohol and Drug Abuse Patient Records regulations: The Federal rules restrict any use of the information to criminally investigate or prosecute any alcohol or drug abuse patient.[facility] HospitalIn the event this information is protected by the Federal Confidentiality of Alcohol and Drug Abuse Patient Records regulations: The Federal rules restrict any use of the information to criminally investigate or prosecute any alcohol or drug abuse patient.[facility] HospitalIn the event this information is protected by the Federal Confidentiality of Alcohol and Drug Abuse Patient Records regulations: The Federal rules restrict any use of the information to criminally investigate or prosecute any alcohol or drug abuse patient.[facility] HospitalIn the event this information is protected by the Federal Confidentiality of Alcohol and Drug Abuse Patient Records regulations: The Federal rules restrict any use of the information to criminally investigate or prosecute any alcohol or drug abuse patient.[facility] Reason for Visit (unrecogniz ed section and content) Reason Comments Consult Reason Comments Care Coordination Reason Comments Clinical Administrator - Other Reason Comments Patient Education Reason Comments Appointment Reason Comments Radiology NM Specialty Diagnoses / Procedures Referred By Contac t Referred To Contact MOLECULAR & FUNCTIONAL IMAGING Diagnoses Malignant neoplasm of unspecified part of unspecified bronchus or lung (HCC) Procedures NM PET/CT SKULL-THIGH SUBSEQUENT PET IMAGING CT ATTENUATION SKULL BASE MID-THIGH Williams Apple MD [address] [place] [address] [place] [address] Phone: tel: fax: Molecular Imaging [address] [place] [address] Phone: tel: Referral ID Status Reason Start Date Expiration Date V isits Requested Visits Authorized [id number] Closed Auto-Generate d Referral 02/07/2025 04/08/2025 1 1 Reason Comments Appointment Cancelled Reason Comments Established Patient Reason Comments Future Appointment Reason Comments Consult New patient consulta tion Ref Dr Chester FOR RECORDS PERTAINING TO PATIENTS WHO ARE [...] BASED ON THE PRIMARY CLINICAL RECORDS. [facility] [employer] provides no warranty or guarantee of the accuracy or completeness of information in this document.
[2025-03-27 09:51] LABS: Hematocrit 27.5 % (36.0-48.0); Hemoglobin 9.1 g/dL (12.0-16.0); Mean Corpuscular HGB Conc 33.1 g/dL (29.9-35.2); Mean Corpuscular Hemoglobin 28.0 pg (26.7-34.0); Mean Corpuscular Volume 84.6 fL (81.0-99.0); Platelet Count 120 10^3/uL (150-450); Red Blood Count 3.25 10^6/uL (4.20-5.40)
[2025-03-27 10:10] LABS: Alanine Aminotransferase 18 U/L (14-59); Albumin Globulin Ratio 0.7; Albumin Level 3.0 g/dL (3.4-5.0); Alkaline Phosphatase 112 U/L (46-116); Anion Gap 11.4; Aspartate Amino Transferase 19 U/L (15-37); Blood Urea Nitrogen 18.0 mg/dL (7.0-18.0); Calcium 8.2 mg/dL (8.5-10.1); Carbon Dioxide 26.1 mmol/L (21.0-32.0); Chloride 100 mmol/L (98-107); Estimated GFR (African America >60 (>=60 mL/min/1.73m^2); Estimated GFR (Non-African Ame 50 (>=60 mL/min/1.73m^2); Globulin 4.3 g/dL; Glucose 134 mg/dL (74-106); Potassium 3.5 mmol/L (3.5-5.1); Sodium 134 mmol/L (136-145); Total Protein 7.3 g/dL (6.4-8.2); White Blood Count 1.3 10^3/uL (4.0-11.0)
--- NOTE | 2025-03-27 10:12 | PC.NURSE ---
received critical labs on Isela Renner WB 1.3 reported to her nurse at this time.
[2025-03-27 10:22] LABS: Basophils Abs Manual 0.00 10^3/uL (0.00-0.10); Basophils Percent Manual 0.0 % (0.2-2.0); Eosinophils Absolute Manual 0.00 10^3/uL (0.00-0.70); Eosinophils Percent Manual 0.0 % (0.9-7.0); Lymphocytes Absolute Manual 0.57 10^3/uL (1.20-3.80); Lymphocytes Percent Manual 44.0 % (20.5-60.0); Monocytes Absolute Manual 0.20 10^3/uL (0.30-0.80); Monocytes Percent Manual 16.0 % (1.7-12.0); Segmented Neut Absolute Manual 0.52 10^3/uL (1.4-6.5); Segmented Neutrophils % Manual 40.0 (43.0-75.0)
[2025-03-27 10:27] LABS: Magnesium 1.4 mg/dL (1.8-2.4)
--- NOTE | 2025-03-27 10:48 | PC.NURSE ---
1014: Dr. Chester notified of lab results. Instructs to hold chemo admin. today. Will speak with pt. at chairside.
[2025-03-27] MEDS: MAGNESIUM SULFATE IN WATER 2 GM/50 ML PREMIX IV (11:36)
--- NOTE | 2025-03-27 12:07 | PC.NURSE ---
1104: Dr. Chester to chairside to speak with pt. Orders IV magnesium for level of 1.4. Pt. denies c/o or needs.
[2025-03-29 10:00] VITALS: BP 142/84; PULSE 72; TEMP 36.6; O2SAT 96
[2025-03-29] MEDS: HEPARIN SODIUM (PORCINE) PF LOCK FLUSH 500 UNIT/5 ML SYRINGE IV (10:10)
[2025-03-29 10:48] LABS: Hematocrit 28.9 % (36.0-48.0); Hemoglobin 9.7 g/dL (12.0-16.0); Mean Corpuscular HGB Conc 33.6 g/dL (29.9-35.2); Mean Corpuscular Hemoglobin 28.3 pg (26.7-34.0); Mean Corpuscular Volume 84.3 fL (81.0-99.0); Platelet Count 167 10^3/uL (150-450); Red Blood Count 3.43 10^6/uL (4.20-5.40); White Blood Count 1.6 10^3/uL (4.0-11.0)
[2025-03-29 10:51] LABS: Band Neutrophils Absolute 0.1 10^3/uL (0.0-0.3); Basophils Abs Manual 0.00 10^3/uL (0.00-0.10); Basophils Percent Manual 0.0 % (0.2-2.0); Eosinophils Absolute Manual 0.00 10^3/uL (0.00-0.70); Eosinophils Percent Manual 0.0 % (0.9-7.0); Lymphocytes Absolute Manual 0.89 10^3/uL (1.20-3.80); Lymphocytes Percent Manual 56.0 % (20.5-60.0); Metamyelocytes Absolute Manual 0.01; Monocytes Absolute Manual 0.35 10^3/uL (0.30-0.80); Monocytes Percent Manual 22.0 % (1.7-12.0); Myelocytes % Manual 1.0; Myelocytes Absolute Manual 0.01; Segmented Neut Absolute Manual 0.25 10^3/uL (1.4-6.5); Segmented Neutrophils % Manual 16.0 (43.0-75.0)
--- NOTE | 2025-03-29 13:43 | PC.NURSE ---
1045: ANC reported to Dr. Chester. Seeking emergent auth. for short acting growth factor. Pt. decides to remain in dept. until auth verified.
[2025-03-29 15:40] VITALS: BP 132/83; PULSE 113; TEMP 36.6; O2SAT 96
--- NOTE | 2025-03-29 15:50 | PC.NURSE ---
1330: Pt. decides to go home and come back later if medication approved.
[2025-03-29] MEDS: FILGRASTIM-SNDZ 300 MCG/0.5 ML SYRINGE SUBQ (15:54)
[2025-03-30] MEDS: FILGRASTIM-SNDZ 300 MCG/0.5 ML SYRINGE SUBQ (12:29)
[2025-03-30 12:31] VITALS: BP 150/91; PULSE 117; TEMP 36.6; O2SAT 95
[2025-04-02 12:49] VITALS: BP 140/81; TEMP 36.1; O2SAT 94
[2025-04-02] MEDS: FILGRASTIM-SNDZ 300 MCG/0.5 ML SYRINGE SUBQ (12:54)
[2025-04-03 09:42] LABS: Hemoglobin 8.0 g/dL (12.0-16.0); Mean Corpuscular HGB Conc 33.6 g/dL (29.9-35.2); Mean Corpuscular Hemoglobin 28.9 pg (26.7-34.0); Mean Corpuscular Volume 85.9 fL (81.0-99.0); Platelet Count 89 10^3/uL (150-450); Red Blood Count 2.77 10^6/uL (4.20-5.40); White Blood Count 15.9 10^3/uL (4.0-11.0)
[2025-04-03 09:45] LABS: Hematocrit 23.8 % (36.0-48.0)
[2025-04-03 09:59] LABS: Alanine Aminotransferase 19 U/L (14-59); Albumin Globulin Ratio 0.7; Albumin Level 2.7 g/dL (3.4-5.0); Alkaline Phosphatase 140 U/L (46-116); Anion Gap 15.5; Aspartate Amino Transferase 15 U/L (15-37); Blood Urea Nitrogen 12.0 mg/dL (7.0-18.0); Calcium 7.9 mg/dL (8.5-10.1); Carbon Dioxide 25.8 mmol/L (21.0-32.0); Chloride 100 mmol/L (98-107); Estimated GFR (African America 56 (>=60 mL/min/1.73m^2); Estimated GFR (Non-African Ame 46 (>=60 mL/min/1.73m^2); Globulin 4.1 g/dL; Glucose 104 mg/dL (74-106); Magnesium 1.5 mg/dL (1.8-2.4); Potassium 3.3 mmol/L (3.5-5.1); Sodium 138 mmol/L (136-145); Total Protein 6.8 g/dL (6.4-8.2)
[2025-04-03 10:07] LABS: Band Neutrophils Absolute 0.2 10^3/uL (0.0-0.3); Basophils Abs Manual 0.00 10^3/uL (0.00-0.10); Basophils Percent Manual 0.0 % (0.2-2.0); Eosinophils Absolute Manual 0.00 10^3/uL (0.00-0.70); Eosinophils Percent Manual 0.0 % (0.9-7.0); Lymphocytes Absolute Manual 1.43 10^3/uL (1.20-3.80); Lymphocytes Percent Manual 9.0 % (20.5-60.0); Monocytes Absolute Manual 2.06 10^3/uL (0.30-0.80); Monocytes Percent Manual 13.0 % (1.7-12.0); Segmented Neut Absolute Manual 12.24 10^3/uL (1.4-6.5); Segmented Neutrophils % Manual 77.0 (43.0-75.0)
[2025-04-03] MEDS: [UNRECOGNIZED DRUG - OTHER] IV (10:46)
[2025-04-03] MEDS: 0.9 % SODIUM CHLORIDE 250 ML 10 ML IV (10:46)
[2025-04-03] MEDS: DEXAMETHASONE SODIUM PHOSPHATE IV (10:46)
[2025-04-03] MEDS: DIPHENHYDRAMINE HCL IV (10:46)
[2025-04-03] MEDS: FAMOTIDINE 20 MG TABLET PO (10:46)
[2025-04-03] MEDS: DENOSUMAB 120 MG/1.7 ML VIAL SQ (11:02)
[2025-04-03] MEDS: EPOETIN ALFA 20,000 UNIT/2 ML VIAL 40000 UNIT SUBQ (11:02)
[2025-04-03 11:13] VITALS: BP 104/67; PULSE 57; TEMP 36; O2SAT 92
[2025-04-03] MEDS: PACLITAXEL IV (11:34)
[2025-04-03] MEDS: SODIUM CHLORIDE 0.9% IV (11:34)
--- NOTE | 2025-04-03 11:41 | PC.NURSE ---
1115 tolerating infusion as ordered. rt chest port site clear. rechecked vs. patient concerned taking too much metoprolol, has been taking bp at home, instructed if bp less than 100 or heart rate less than 50 to hold and notifiy Dr. Baker as he may need to decrease dose.
[2025-04-03] MEDS: HEPARIN SODIUM (PORCINE) PF LOCK FLUSH 500 UNIT/5 ML SYRINGE IV (13:35)
[2025-04-10 09:25] VITALS: BP 112/71; PULSE 78; TEMP 36.8; O2SAT 95
[2025-04-10 09:49] LABS: Hemoglobin 7.2 g/dL (12.0-16.0); Mean Corpuscular HGB Conc 33.3 g/dL (29.9-35.2); Mean Corpuscular Hemoglobin 28.7 pg (26.7-34.0); Mean Corpuscular Volume 86.1 fL (81.0-99.0); Platelet Count 30 10^3/uL (150-450); Red Blood Count 2.51 10^6/uL (4.20-5.40); White Blood Count 2.1 10^3/uL (4.0-11.0)
[2025-04-10 09:53] LABS: Hematocrit 21.6 % (36.0-48.0)
[2025-04-10 10:05] LABS: Alanine Aminotransferase 17 U/L (14-59); Albumin Globulin Ratio 0.7; Albumin Level 2.9 g/dL (3.4-5.0); Alkaline Phosphatase 115 U/L (46-116); Anion Gap 10.7; Aspartate Amino Transferase 17 U/L (15-37); Blood Urea Nitrogen 16.0 mg/dL (7.0-18.0); Calcium 7.9 mg/dL (8.5-10.1); Carbon Dioxide 26.5 mmol/L (21.0-32.0); Chloride 103 mmol/L (98-107); Estimated GFR (African America 54 (>=60 mL/min/1.73m^2); Estimated GFR (Non-African Ame 44 (>=60 mL/min/1.73m^2); Globulin 3.9 g/dL; Glucose 110 mg/dL (74-106); Magnesium 1.5 mg/dL (1.8-2.4); Potassium 3.2 mmol/L (3.5-5.1); Sodium 137 mmol/L (136-145); Total Protein 6.8 g/dL (6.4-8.2)
--- NOTE | 2025-04-10 10:16 | PC.NURSE ---
1013: Dr. Chester to chairside, reviews labs with patient.
[2025-04-10 10:23] LABS: Basophils Abs Manual 0.02 10^3/uL (0.00-0.10); Basophils Percent Manual 1.0 % (0.2-2.0); Blast % Manual 2.0; Blast Absolute Manual 0.04; Eosinophils Absolute Manual 0.00 10^3/uL (0.00-0.70); Eosinophils Percent Manual 0.0 % (0.9-7.0); Lymphocytes Absolute Manual 0.52 10^3/uL (1.20-3.80); Lymphocytes Percent Manual 25.0 % (20.5-60.0); Monocytes Absolute Manual 0.31 10^3/uL (0.30-0.80); Monocytes Percent Manual 15.0 % (1.7-12.0); Segmented Neut Absolute Manual 1.19 10^3/uL (1.4-6.5); Segmented Neutrophils % Manual 57.0 (43.0-75.0)
[2025-04-10 10:24] LABS: Anisocytosis 1+
[2025-04-10] MEDS: 0.9 % SODIUM CHLORIDE 250 ML 20 ML IV (10:28)
[2025-04-10] MEDS: EPOETIN ALFA 20,000 UNIT/2 ML VIAL 40000 UNIT SUBQ (11:07)
[2025-04-10] MEDS: POTASSIUM CHLORIDE 20 MEQ in 0.9 % SODIUM CHLORIDE 250 ML 130 MEQ IV (11:07)
--- NOTE | 2025-04-10 11:36 | PC.NURSE ---
Lunch ordered for pt. IV KCL infusing at this time. Pt. denies needs.
[2025-04-10] MEDS: MAGNESIUM SULFATE IN WATER 2 GM/50 ML PREMIX IV (13:05)
--- NOTE | 2025-04-10 13:06 | PC.NURSE ---
KCL infusion completed without s&s of adverse reaction. IV magnesium initiated as ordered. Pt. Resting quietly with eyes closed. Resp even and unlabored.
[2025-04-12 10:00] VITALS: BP 122/70; PULSE 104; TEMP 36.6; O2SAT 96
[2025-04-12] MEDS: ALTEPLASE 2 MG, WATER FOR INJECTION,STERILE 2.2 ML IVP (10:22)
--- NOTE | 2025-04-12 10:52 | PC.NURSE ---
1022: Port a cath instilled with Cath Jonas as directed. Port clamped. Pt. denies needs.
[2025-04-12] MEDS: 0.9 % SODIUM CHLORIDE 1,000 ML 500 ML IV (11:05)
--- NOTE | 2025-04-12 11:11 | PC.NURSE ---
1105: Port a cath flushes easily with good blood return with aspiration. Blood drawn for ordered CBC. IV NS initiated at this time as ordered to be given prior to CT scan. Pt. given warm blankets.
[2025-04-12 11:18] LABS: Hemoglobin 7.2 g/dL (12.0-16.0); Mean Corpuscular HGB Conc 32.0 g/dL (29.9-35.2); Mean Corpuscular Hemoglobin 28.1 pg (26.7-34.0); Mean Corpuscular Volume 87.9 fL (81.0-99.0); Platelet Count 33 10^3/uL (150-450); Red Blood Count 2.56 10^6/uL (4.20-5.40); White Blood Count 1.5 10^3/uL (4.0-11.0)
[2025-04-12 11:25] LABS: Hematocrit 22.5 % (36.0-48.0)
--- NOTE | 2025-04-12 11:28 | PC.NURSE ---
1125: Lab phoned with critical Hct. Results sent to Dr. Nemo smith. [employer] EMR. Awaiting instruction.
--- NOTE | 2025-04-12 11:43 | PC.NURSE ---
1140: 500cc saline infused. Pt. taken to Diagnostic imaging via w/c per this RN.
[2025-04-12 11:57] LABS: Anisocytosis 1+; Basophils Abs Manual 0.01 10^3/uL (0.00-0.10); Basophils Percent Manual 1.0 % (0.2-2.0); Eosinophils Absolute Manual 0.00 10^3/uL (0.00-0.70); Eosinophils Percent Manual 0.0 % (0.9-7.0); Lymphocytes Absolute Manual 0.54 10^3/uL (1.20-3.80); Lymphocytes Percent Manual 36.0 % (20.5-60.0); Monocytes Absolute Manual 0.34 10^3/uL (0.30-0.80); Monocytes Percent Manual 23.0 % (1.7-12.0); Segmented Neut Absolute Manual 0.60 10^3/uL (1.4-6.5); Segmented Neutrophils % Manual 40.0 (43.0-75.0)
--- NOTE | 2025-04-12 12:11 | CT_ITS ---
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 Spiral images were obtained through the chest, abdomen and pelvis following oral and 100 mL of Omnipaque 300. Images of the chest were reviewed using both air and wide window settings. This CT exam was performed using one or more following dose reduction techniques: Automated exposure control, adjustment of the mA and/or kV according to patient size, or use of iterative reconstruction technique. A right-sided Gcgnca-d-Wzdn catheter is noted. The heart is within normal limits for size. There is a trace amount of pericardial fluid. No aortic aneurysm or dissection is seen. Mild prominence of the imaged thyroid lobes is again noted. There are a few small mediastinal lymph nodes which are stable in size. There is continued soft tissue opacity in the right suprahilar region that extends into the upper lobe. This could be mass and/or consolidated lung. It currently measures approximately 6.1 x 6.1 x 4.7 cm. It previously measured 6.4 x 5.8 x 5.2 cm at a comparable level. Overall it is believed to be slightly smaller. There is a large right pleural effusion with slight increase in volume since the comparison. There are some areas of scarring or atelectasis within the aerated right lung. There are a couple small nodular densities on the right which are stable. There is also a stable tiny nodule at the posterior left upper lobe. The small irregular groundglass opacity at the superior segment of left upper lobe is also unchanged. There is left apical scarring. No pneumothorax is seen. 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 No calcified gallstones are identified. There are couple of similar tiny hepatic hypodensities which may be cysts. The spleen, pancreas and adrenal glands show no acute findings. There are symmetric renal nephrograms, without hydronephrosis. The abdominal aorta is normal caliber. No enlarged lymph nodes or ascites are seen. Small bowel loops are not dilated. There is stool within the colon. There is slight dextroscoliotic curvature and degenerative changes at the spine. Osteoblastic metastases are again visualized and there appears to be some progression at L1. Images through the pelvis show normal caliber small bowel loops. There is stool at the distal colon. No diverticular disease is noted. No urinary bladder abnormalities are identified. The uterus is surgically absent. No ascites is seen. Osteoblastic metastases are present at the sacrum and iliac bones, similar to the prior. CT/CT abdomen pelvis w con IMPRESSION: SLIGHT INTERVAL DECREASE IN SIZE OF RIGHT UPPER LOBE MASSLIKE OPACITY. ENLARGING RIGHT PLEURAL EFFUSION. SIMILAR MINOR PARENCHYMAL CHANGES AND NODULARITY. TINY HEPATIC CYSTS. NO BOWEL OR URINARY TRACT OBSTRUCTION. DIFFUSE OSTEOBLASTIC METASTASES WITH SUSPECTED PROGRESSION AT L1. Impression dictated by: Yasmin Maier M.D. 04/12/2025 1:08 PM Dictation Location: [place] [address] Electronically authenticated by: [id number] Y Date: 04/12/2025 13:08
--- NOTE | 2025-04-12 12:11 | CT_ITS ---
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 Spiral images were obtained through the chest, abdomen and pelvis following oral and 100 mL of Omnipaque 300. Images of the chest were reviewed using both air and wide window settings. This CT exam was performed using one or more following dose reduction techniques: Automated exposure control, adjustment of the mA and/or kV according to patient size, or use of iterative reconstruction technique. A right-sided Gxxlcc-h-Wzkm catheter is noted. The heart is within normal limits for size. There is a trace amount of pericardial fluid. No aortic aneurysm or dissection is seen. Mild prominence of the imaged thyroid lobes is again noted. There are a few small mediastinal lymph nodes which are stable in size. There is continued soft tissue opacity in the right suprahilar region that extends into the upper lobe. This could be mass and/or consolidated lung. It currently measures approximately 6.1 x 6.1 x 4.7 cm. It previously measured 6.4 x 5.8 x 5.2 cm at a comparable level. Overall it is believed to be slightly smaller. There is a large right pleural effusion with slight increase in volume since the comparison. There are some areas of scarring or atelectasis within the aerated right lung. There are a couple small nodular densities on the right which are stable. There is also a stable tiny nodule at the posterior left upper lobe. The small irregular groundglass opacity at the superior segment of left upper lobe is also unchanged. There is left apical scarring. No pneumothorax is seen. 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 No calcified gallstones are identified. There are couple of similar tiny hepatic hypodensities which may be cysts. The spleen, pancreas and adrenal glands show no acute findings. There are symmetric renal nephrograms, without hydronephrosis. The abdominal aorta is normal caliber. No enlarged lymph nodes or ascites are seen. Small bowel loops are not dilated. There is stool within the colon. There is slight dextroscoliotic curvature and degenerative changes at the spine. Osteoblastic metastases are again visualized and there appears to be some progression at L1. Images through the pelvis show normal caliber small bowel loops. There is stool at the distal colon. No diverticular disease is noted. No urinary bladder abnormalities are identified. The uterus is surgically absent. No ascites is seen. Osteoblastic metastases are present at the sacrum and iliac bones, similar to the prior. CT/CT chest w con IMPRESSION: SLIGHT INTERVAL DECREASE IN SIZE OF RIGHT UPPER LOBE MASSLIKE OPACITY. ENLARGING RIGHT PLEURAL EFFUSION. SIMILAR MINOR PARENCHYMAL CHANGES AND NODULARITY. TINY HEPATIC CYSTS. NO BOWEL OR URINARY TRACT OBSTRUCTION. DIFFUSE OSTEOBLASTIC METASTASES WITH SUSPECTED PROGRESSION AT L1. Impression dictated by: Yasmin Maier M.D. 04/12/2025 1:08 PM Dictation Location: [place] [address] Electronically authenticated by: [id number] Y Date: 04/12/2025 13:08
--- NOTE | 2025-04-12 12:11 | SUR.PREOP ---
[address] scan with port accessed. Verified that pt has power port. Good blood return noted and flushes easily with 10 cc NS. Pt given IV contrast during CT and tolerated well. Flushed port with 10 cc NS . Pt to return to [facility]fusion [facility] for IV fluids after CT via port.
--- NOTE | 2025-04-12 12:16 | PC.NURSE ---
1215: Pt returns to [facility] via w/c. Seated in recliner. NS infusion resumed as ordered. Given warm blankets and water. Denies needs.
[2025-04-12] MEDS: DIPHENHYDRAMINE HCL 25 MG CAPSULE PO (13:10)
[2025-04-12] MEDS: ACETAMINOPHEN 325 MG TABLET 650 MG PO (13:10)
--- NOTE | 2025-04-12 13:27 | PC.NURSE ---
1250: Pt. eating scrambled eggs and chocolate milk for lunch. Informed need for PRBC transfusion per Dr. Chester's order. Consent obtained
[2025-04-12] MEDS: 0.9 % SODIUM CHLORIDE 250 ML 20 ML IV (13:31)
[2025-04-12 13:47] VITALS: BP 122/76; PULSE 94; TEMP 36.4; O2SAT 91
[2025-04-12 13:50] VITALS: BP 121/71; PULSE 96; TEMP 36.9; O2SAT 91
--- NOTE | 2025-04-12 13:52 | PC.NURSE ---
1347: 1 unit PRBc initiated at this time.
--- NOTE | 2025-04-12 14:06 | PC.NURSE ---
1350: Tolerating transfusion without s&s of adverse reaction. VSS. Pt. denies c/o or needs.
--- NOTE | 2025-04-12 14:57 | PC.NURSE ---
Sleeping off and on. VSS. PRBC cont to infuse without incident
[2025-04-12 14:58] VITALS: BP 114/71; PULSE 87; TEMP 36.7; O2SAT 92
[2025-04-17 09:20] VITALS: BP 110/67; PULSE 73; TEMP 36.4; O2SAT 99
[2025-04-17 09:43] LABS: Hematocrit 30.5 % (36.0-48.0); Hemoglobin 9.7 g/dL (12.0-16.0); Mean Corpuscular HGB Conc 31.8 g/dL (29.9-35.2); Mean Corpuscular Hemoglobin 29.0 pg (26.7-34.0); Mean Corpuscular Volume 91.3 fL (81.0-99.0); Platelet Count 176 10^3/uL (150-450); Red Blood Count 3.34 10^6/uL (4.20-5.40); White Blood Count 2.6 10^3/uL (4.0-11.0)
[2025-04-17 10:04] LABS: Alanine Aminotransferase 16 U/L (14-59); Albumin Globulin Ratio 0.8; Albumin Level 3.1 g/dL (3.4-5.0); Alkaline Phosphatase 114 U/L (46-116); Anion Gap 14.4; Aspartate Amino Transferase 14 U/L (15-37); Blood Urea Nitrogen 15.0 mg/dL (7.0-18.0); Calcium 8.4 mg/dL (8.5-10.1); Carbon Dioxide 24.4 mmol/L (21.0-32.0); Chloride 101 mmol/L (98-107); Estimated GFR (African America 56 (>=60 mL/min/1.73m^2); Estimated GFR (Non-African Ame 46 (>=60 mL/min/1.73m^2); Globulin 4.0 g/dL; Glucose 132 mg/dL (74-106); Potassium 3.8 mmol/L (3.5-5.1); Sodium 136 mmol/L (136-145); Total Protein 7.1 g/dL (6.4-8.2)
[2025-04-17 10:09] LABS: Basophils Abs Manual 0.00 10^3/uL (0.00-0.10); Basophils Percent Manual 0.0 % (0.2-2.0); Eosinophils Absolute Manual 0.00 10^3/uL (0.00-0.70); Eosinophils Percent Manual 0.0 % (0.9-7.0); Lymphocytes Absolute Manual 0.75 10^3/uL (1.20-3.80); Lymphocytes Percent Manual 29.0 % (20.5-60.0); Monocytes Absolute Manual 1.04 10^3/uL (0.30-0.80); Monocytes Percent Manual 40.0 % (1.7-12.0); Segmented Neut Absolute Manual 0.80 10^3/uL (1.4-6.5); Segmented Neutrophils % Manual 31.0 (43.0-75.0)
[2025-04-17 10:10] LABS: Anisocytosis 1+
--- NOTE | 2025-04-17 10:43 | PC.NURSE ---
Dr. Chester to bedside for MD visit. Reviews labs and recent CT scan with pt. and pt.'s daughter. Relays not to administer Procrit today.
[2025-04-17] MEDS: HEPARIN SODIUM (PORCINE) PF LOCK FLUSH 500 UNIT/5 ML SYRINGE IV (11:00)
[2025-04-18 12:32] VITALS: BP 123/79; PULSE 68; TEMP 36.4; O2SAT 94
[2025-04-18] MEDS: FILGRASTIM-SNDZ 300 MCG/0.5 ML SYRINGE SUBQ (12:43)
[2025-04-19 11:47] LABS: Hematocrit 36.4 % (36.0-48.0); Hemoglobin 11.2 g/dL (12.0-16.0); Mean Corpuscular HGB Conc 30.8 g/dL (29.9-35.2); Mean Corpuscular Hemoglobin 28.6 pg (26.7-34.0); Mean Corpuscular Volume 93.1 fL (81.0-99.0); Platelet Count 346 10^3/uL (150-450); Red Blood Count 3.91 10^6/uL (4.20-5.40); White Blood Count 9.7 10^3/uL (4.0-11.0)
[2025-04-19 11:49] VITALS: BP 127/82; PULSE 84; TEMP 36.9; O2SAT 94
[2025-04-19 12:08] LABS: Band Neutrophils Absolute 1.3 10^3/uL (0.0-0.3); Segmented Neut Absolute Manual 5.91 10^3/uL (1.4-6.5); Segmented Neutrophils % Manual 61.0 (43.0-75.0)
[2025-04-19 12:09] LABS: Anisocytosis 1+; Basophils Abs Manual 0.00 10^3/uL (0.00-0.10); Basophils Percent Manual 0.0 % (0.2-2.0); Eosinophils Absolute Manual 0.00 10^3/uL (0.00-0.70); Eosinophils Percent Manual 0.0 % (0.9-7.0); Lymphocytes Absolute Manual 0.48 10^3/uL (1.20-3.80); Lymphocytes Percent Manual 5.0 % (20.5-60.0); Monocytes Absolute Manual 2.03 10^3/uL (0.30-0.80); Monocytes Percent Manual 21.0 % (1.7-12.0)
[2025-04-19] MEDS: FILGRASTIM-SNDZ 300 MCG/0.5 ML SYRINGE SUBQ (12:10)
[2025-04-24 09:27] VITALS: BP 151/88; PULSE 78; TEMP 36.2; O2SAT 94
[2025-04-24 09:43] LABS: Hematocrit 34.7 % (36.0-48.0); Hemoglobin 10.9 g/dL (12.0-16.0); Mean Corpuscular HGB Conc 31.4 g/dL (29.9-35.2); Mean Corpuscular Hemoglobin 28.3 pg (26.7-34.0); Mean Corpuscular Volume 90.1 fL (81.0-99.0); Platelet Count 354 10^3/uL (150-450); Red Blood Count 3.85 10^6/uL (4.20-5.40); White Blood Count 7.3 10^3/uL (4.0-11.0)
[2025-04-24 09:59] LABS: Alanine Aminotransferase 16 U/L (14-59); Albumin Globulin Ratio 0.7; Albumin Level 3.0 g/dL (3.4-5.0); Alkaline Phosphatase 128 U/L (46-116); Anion Gap 11.0; Aspartate Amino Transferase 15 U/L (15-37); Blood Urea Nitrogen 11.0 mg/dL (7.0-18.0); Calcium 8.0 mg/dL (8.5-10.1); Carbon Dioxide 27.0 mmol/L (21.0-32.0); Chloride 100 mmol/L (98-107); Estimated GFR (African America >60 (>=60 mL/min/1.73m^2); Estimated GFR (Non-African Ame 51 (>=60 mL/min/1.73m^2); Globulin 4.5 g/dL; Glucose 126 mg/dL (74-106); Potassium 4.0 mmol/L (3.5-5.1); Sodium 134 mmol/L (136-145); Total Protein 7.5 g/dL (6.4-8.2)
[2025-04-24 10:07] LABS: Magnesium 1.6 mg/dL (1.8-2.4); TSH W/ REFLEX FT4 5.595 uIU/mL (0.358-3.740)
[2025-04-24 10:08] LABS: Band Neutrophils Absolute 0.1 10^3/uL (0.0-0.3); Basophils Abs Manual 0.00 10^3/uL (0.00-0.10); Basophils Percent Manual 0.0 % (0.2-2.0); Eosinophils Absolute Manual 0.00 10^3/uL (0.00-0.70); Eosinophils Percent Manual 0.0 % (0.9-7.0); Lymphocytes Absolute Manual 1.31 10^3/uL (1.20-3.80); Lymphocytes Percent Manual 18.0 % (20.5-60.0); Metamyelocytes Absolute Manual 0.14; Monocytes Absolute Manual 1.02 10^3/uL (0.30-0.80); Monocytes Percent Manual 14.0 % (1.7-12.0); Segmented Neut Absolute Manual 4.67 10^3/uL (1.4-6.5); Segmented Neutrophils % Manual 64.0 (43.0-75.0)
[2025-04-24 10:10] LABS: Myelocytes % Manual 1.0; Myelocytes Absolute Manual 0.07
[2025-04-24] MEDS: 0.9 % SODIUM CHLORIDE 250 ML 20 ML IV (11:04)
[2025-04-24] MEDS: DIPHENHYDRAMINE HCL IV (11:05)
[2025-04-24] MEDS: FAMOTIDINE 20 MG TABLET PO (11:05)
[2025-04-24] MEDS: [UNRECOGNIZED DRUG - OTHER] IV (11:05)
[2025-04-24] MEDS: DEXAMETHASONE SODIUM PHOSPHATE IV (11:05)
[2025-04-24] MEDS: PACLITAXEL IV (11:30)
[2025-04-24] MEDS: SODIUM CHLORIDE 0.9% IV (11:30)
[2025-04-24] MEDS: HEPARIN SODIUM (PORCINE) PF LOCK FLUSH 500 UNIT/5 ML SYRINGE IV (13:00)
== END 2025-04-24 23:59 | disposition home or self-care (01) ==
LOC: HEMC 09:22
PROVIDERS: PCP Family Medicine; Visit Provider Internal Medicine Hematology & Oncology
DX: Z51.11 Encounter for antineoplastic chemotherapy (principal); C34.11 Malignant neoplasm of upper lobe, right bronchus or lung; C77.1 Secondary and unspecified malignant neoplasm of intrathoracic lymph nodes; R11.2 Nausea with vomiting, unspecified; C78.7 Secondary malignant neoplasm of liver and intrahepatic bile duct; C79.51 Secondary malignant neoplasm of bone; D64.9 Anemia, unspecified; D69.6 Thrombocytopenia, unspecified; D70.1 Agranulocytosis secondary to cancer chemotherapy; Z79.899 Other long term (current) drug therapy; D64.81 Anemia due to antineoplastic chemotherapy; D50.9 Iron deficiency anemia, unspecified; K90.9 Intestinal malabsorption, unspecified; Z86.16 Personal history of COVID-19; Z90.710 Acquired absence of both cervix and uterus; R05.3 Chronic cough
CPT/HCPCS: 36415; 36430; 36591; 36593; 71260; 74177; 80053; 83735; 84439; 84443; 85007; 85025; 85027; 86850; 86900; 86901; 86923; 96365; 96366; 96367; 96372; 96374; 96413; G0463; J0885; J0897; J1100; J1200; J1642; J2997; J3475; J3480; J9267; P9016; Q5101; Q9967

== ENCOUNTER 2025-05-22 09:45 | Outpatient (RCR) | payer MEDICARE, SELFPAY ==
[2025-05-01 09:45] VITALS: BP 145/90; PULSE 69; TEMP 36.1; O2SAT 98
[2025-05-01 10:00] LABS: Hematocrit 31.9 % (36.0-48.0); Hemoglobin 10.3 g/dL (12.0-16.0); Immature Granulocytes Abs Auto 0.03 10^3/uL (0.00-0.03); Immature Granulocytes Pct Auto 0.6 % (0.0-0.5); Lymphocytes Absolute Auto 0.8 10^3/uL (1.2-3.8); Mean Corpuscular HGB Conc 32.3 g/dL (29.9-35.2); Mean Corpuscular Hemoglobin 29.1 pg (26.7-34.0); Mean Corpuscular Volume 90.1 fL (81.0-99.0); Platelet Count 301 10^3/uL (150-450); Red Blood Count 3.54 10^6/uL (4.20-5.40); White Blood Count 5.2 10^3/uL (4.0-11.0)
[2025-05-01 10:13] LABS: Alanine Aminotransferase 13 U/L (14-59); Albumin Globulin Ratio 0.8; Albumin Level 3.4 g/dL (3.4-5.0); Alkaline Phosphatase 106 U/L (46-116); Anion Gap 15.9; Aspartate Amino Transferase 14 U/L (15-37); Blood Urea Nitrogen 11.0 mg/dL (7.0-18.0); Calcium 8.4 mg/dL (8.5-10.1); Carbon Dioxide 24.5 mmol/L (21.0-32.0); Chloride 102 mmol/L (98-107); Estimated GFR (African America >60 (>=60 mL/min/1.73m^2); Estimated GFR (Non-African Ame 51 (>=60 mL/min/1.73m^2); Globulin 4.4 g/dL; Glucose 141 mg/dL (74-106); Magnesium 1.8 mg/dL (1.8-2.4); Potassium 3.4 mmol/L (3.5-5.1); Sodium 139 mmol/L (136-145); Total Protein 7.8 g/dL (6.4-8.2)
[2025-05-01] MEDS: 0.9 % SODIUM CHLORIDE 250 ML 10 ML IV (10:30)
[2025-05-01 10:36] LABS: Ferritin 996.0 ng/mL (8.0-252.0)
[2025-05-01 10:48] LABS: Iron 26.0 ug/dL (50.0-170.0); Percent Iron Saturation 11.0 %; Total Iron Binding Capacity 237.0 ug/dL (250.0-450.0)
[2025-05-01] MEDS: FAMOTIDINE 20 MG TABLET PO (11:30)
[2025-05-01] MEDS: CODEINE 10 MG/GUAIFENESIN 100 MG 5 ML ORAL SYRINGE 10 ML PO (11:30)
[2025-05-01] MEDS: PALONOSETRON HCL 0.25 MG/5 ML VIAL IV (11:31)
[2025-05-01] MEDS: [UNRECOGNIZED DRUG - OTHER] IV (11:33)
[2025-05-01] MEDS: DEXAMETHASONE SODIUM PHOSPHATE IV (11:33)
[2025-05-01] MEDS: DIPHENHYDRAMINE HCL IV (11:33)
[2025-05-01] MEDS: APREPITANT 130 MG in 0.9 % SODIUM CHLORIDE 100 ML 236 MG IV (11:57)
[2025-05-01] MEDS: DENOSUMAB 120 MG/1.7 ML VIAL SQ (12:15)
[2025-05-01] MEDS: SODIUM CHLORIDE 0.9% IV ×2 (12:25→13:30)
[2025-05-01] MEDS: PACLITAXEL IV (12:25)
[2025-05-01] MEDS: CARBOPLATIN IV (13:30)
--- NOTE | 2025-05-01 13:53 | PC.NURSE ---
1130: Medicated with cough medicine as ordered for persistent, moist harsh cough. Expectorating white colored sputum. Dr. Chester to chairside for MD visit.
--- NOTE | 2025-05-01 13:57 | PC.NURSE ---
1225: IV Taxol initiated at this time. Lunch tray provided.
--- NOTE | 2025-05-01 13:58 | PC.NURSE ---
1330: Taxol infused without s&s of adverse reaction. VSS. Pt. drowsy attempts to nap. Carboplatin infusion initiated at this time.
--- NOTE | 2025-05-01 14:14 | PC.NURSE ---
1414: Resting quietly with eyes closed. Resp even and unlabored. Appears to be without s&s of distress or discomfort.
[2025-05-01] MEDS: HEPARIN SODIUM (PORCINE) PF LOCK FLUSH 500 UNIT/5 ML SYRINGE IV (14:36)
[2025-05-01 14:42] VITALS: BP 116/75; PULSE 66; TEMP 36.6; O2SAT 94
[2025-05-03 13:05] VITALS: BP 127/77; PULSE 76; TEMP 36.2; O2SAT 95
[2025-05-03] MEDS: FILGRASTIM-SNDZ 300 MCG/0.5 ML SYRINGE SUBQ (13:13)
[2025-05-04 13:08] VITALS: BP 121/81; PULSE 72; TEMP 35.7; O2SAT 95
[2025-05-04] MEDS: FILGRASTIM-SNDZ 300 MCG/0.5 ML SYRINGE SUBQ (13:12)
[2025-05-07 13:00] VITALS: BP 150/88; PULSE 73; TEMP 36.4; O2SAT 96
[2025-05-07] MEDS: FILGRASTIM-SNDZ 300 MCG/0.5 ML SYRINGE SUBQ (13:22)
[2025-05-08 10:10] VITALS: BP 127/85; PULSE 102; TEMP 36.9; O2SAT 95
[2025-05-08] MEDS: DEXTROSE 5%-0.9% NACL 1,000 ML 1,000 ML 666.667 ML IV (10:42)
[2025-05-08 10:52] LABS: Hematocrit 29.8 % (36.0-48.0); Hemoglobin 9.7 g/dL (12.0-16.0); Mean Corpuscular HGB Conc 32.6 g/dL (29.9-35.2); Mean Corpuscular Hemoglobin 29.1 pg (26.7-34.0); Mean Corpuscular Volume 89.5 fL (81.0-99.0); Platelet Count 117 10^3/uL (150-450); Red Blood Count 3.33 10^6/uL (4.20-5.40); White Blood Count 14.2 10^3/uL (4.0-11.0)
[2025-05-08] MEDS: DEXAMETHASONE SODIUM PHOSPHATE IV (10:58)
[2025-05-08] MEDS: ONDANSETRON HCL IV (10:58)
[2025-05-08] MEDS: [UNRECOGNIZED DRUG - OTHER] IV (10:58)
[2025-05-08 11:08] LABS: Alanine Aminotransferase 16 U/L (14-59); Albumin Globulin Ratio 0.8; Albumin Level 3.4 g/dL (3.4-5.0); Alkaline Phosphatase 146 U/L (46-116); Anion Gap 15.5; Aspartate Amino Transferase 17 U/L (15-37); Basophils Abs Manual 0.14 10^3/uL (0.00-0.10); Basophils Percent Manual 1.0 % (0.2-2.0); Blood Urea Nitrogen 18.0 mg/dL (7.0-18.0); Calcium 8.0 mg/dL (8.5-10.1); Carbon Dioxide 24.0 mmol/L (21.0-32.0); Chloride 101 mmol/L (98-107); Eosinophils Absolute Manual 0.00 10^3/uL (0.00-0.70); Eosinophils Percent Manual 0.0 % (0.9-7.0); Estimated GFR (African America 57 (>=60 mL/min/1.73m^2); Estimated GFR (Non-African Ame 47 (>=60 mL/min/1.73m^2); Globulin 4.2 g/dL; Glucose 178 mg/dL (74-106); Lymphocytes Absolute Manual 0.42 10^3/uL (1.20-3.80); Lymphocytes Percent Manual 3.0 % (20.5-60.0); Magnesium 1.4 mg/dL (1.8-2.4); Monocytes Absolute Manual 0.42 10^3/uL (0.30-0.80); Monocytes Percent Manual 3.0 % (1.7-12.0); Potassium 3.5 mmol/L (3.5-5.1); Segmented Neut Absolute Manual 13.20 10^3/uL (1.4-6.5); Segmented Neutrophils % Manual 93.0 (43.0-75.0); Sodium 137 mmol/L (136-145); Total Protein 7.6 g/dL (6.4-8.2)
[2025-05-08] MEDS: CODEINE 10 MG/GUAIFENESIN 100 MG 5 ML ORAL SYRINGE 10 ML PO (11:08)
[2025-05-08 11:12] LABS: Dohle Bodies 1+; Toxic Granulation 1+
[2025-05-08] MEDS: POTASSIUM PHOSPHATE,MONOBASIC 500 MG TABLET 1000 MG PO (12:15)
[2025-05-08] MEDS: MAGNESIUM SULFATE IN WATER 2 GM/50 ML PREMIX IV (12:21)
--- NOTE | 2025-05-08 13:04 | PC.NURSE ---
1058: Medicated with decadron and zofran IVPB as ordered. Warm blankets provided. Denies needs. Moist harsh cough noted. Dr. Chester notified.
--- NOTE | 2025-05-08 13:08 | PC.NURSE ---
1108: Oral cough medicine provided as ordered.
--- NOTE | 2025-05-08 13:10 | PC.NURSE ---
1221: IV Magnesium initiated at this time. Pt. denies needs
[2025-05-08 13:46] VITALS: BP 144/78; PULSE 77; TEMP 36.7; O2SAT 94
[2025-05-08] MEDS: HEPARIN SODIUM (PORCINE) PF LOCK FLUSH 500 UNIT/5 ML SYRINGE IV (13:46)
[2025-05-15 09:25] VITALS: BP 147/91; PULSE 102; TEMP 36.1; O2SAT 96
[2025-05-15 09:44] LABS: Hematocrit 28.1 % (36.0-48.0); Hemoglobin 9.3 g/dL (12.0-16.0); Immature Granulocytes Abs Auto 0.05 10^3/uL (0.00-0.03); Immature Granulocytes Pct Auto 1.3 % (0.0-0.5); Lymphocytes Absolute Auto 1.1 10^3/uL (1.2-3.8); Mean Corpuscular HGB Conc 33.1 g/dL (29.9-35.2); Mean Corpuscular Hemoglobin 29.2 pg (26.7-34.0); Mean Corpuscular Volume 88.4 fL (81.0-99.0); Platelet Count 94 10^3/uL (150-450); Red Blood Count 3.18 10^6/uL (4.20-5.40); White Blood Count 3.9 10^3/uL (4.0-11.0)
[2025-05-15 09:57] LABS: Alanine Aminotransferase 15 U/L (14-59); Albumin Globulin Ratio 0.8; Albumin Level 3.5 g/dL (3.4-5.0); Alkaline Phosphatase 105 U/L (46-116); Anion Gap 15.7; Aspartate Amino Transferase 14 U/L (15-37); Blood Urea Nitrogen 14.0 mg/dL (7.0-18.0); Calcium 8.5 mg/dL (8.5-10.1); Carbon Dioxide 27.5 mmol/L (21.0-32.0); Chloride 99 mmol/L (98-107); Estimated GFR (African America >60 (>=60 mL/min/1.73m^2); Estimated GFR (Non-African Ame 51 (>=60 mL/min/1.73m^2); Globulin 4.6 g/dL; Glucose 143 mg/dL (74-106); Potassium 3.2 mmol/L (3.5-5.1); Sodium 139 mmol/L (136-145); Total Protein 8.1 g/dL (6.4-8.2)
[2025-05-15] MEDS: POTASSIUM CHLORIDE 20 MEQ in 0.9 % SODIUM CHLORIDE 250 ML 130 MEQ IV (11:07)
[2025-05-15] MEDS: EPOETIN ALFA 20,000 UNIT/2 ML VIAL 40000 UNIT SUBQ (11:07)
[2025-05-15] MEDS: HEPARIN SODIUM (PORCINE) PF LOCK FLUSH 500 UNIT/5 ML SYRINGE IV (12:12)
--- NOTE | 2025-05-15 14:49 | PC.NURSE ---
0935: Dr. Chester to chairside to discuss treatment plan for today. Explains rationale for potential future plan of care, pt. relays understanding. 1107: Medicated with Procrit as ordered. Trace bleeding to injection #1, Bandaid applied. Tolerates with no c/o.
[2025-05-22 09:48] VITALS: BP 151/92; PULSE 96; TEMP 36.3; O2SAT 97
[2025-05-22 10:52] LABS: Alanine Aminotransferase 17 U/L (14-59); Albumin Globulin Ratio 0.9; Albumin Level 3.5 g/dL (3.4-5.0); Alkaline Phosphatase 98 U/L (46-116); Anion Gap 15.5; Aspartate Amino Transferase 18 U/L (15-37); Blood Urea Nitrogen 9.0 mg/dL (7.0-18.0); Calcium 8.7 mg/dL (8.5-10.1); Carbon Dioxide 24.6 mmol/L (21.0-32.0); Chloride 101 mmol/L (98-107); Estimated GFR (African America 52 (>=60 mL/min/1.73m^2); Estimated GFR (Non-African Ame 43 (>=60 mL/min/1.73m^2); Globulin 4.0 g/dL; Glucose 172 mg/dL (74-106); Potassium 3.1 mmol/L (3.5-5.1); Sodium 138 mmol/L (136-145); Total Protein 7.5 g/dL (6.4-8.2)
[2025-05-22 10:56] LABS: Hematocrit 29.5 % (36.0-48.0); Hemoglobin 9.4 g/dL (12.0-16.0); Immature Granulocytes Abs Auto 0.02 10^3/uL (0.00-0.03); Immature Granulocytes Pct Auto 0.5 % (0.0-0.5); Lymphocytes Absolute Auto 0.7 10^3/uL (1.2-3.8); Mean Corpuscular HGB Conc 31.9 g/dL (29.9-35.2); Mean Corpuscular Hemoglobin 29.8 pg (26.7-34.0); Mean Corpuscular Volume 93.7 fL (81.0-99.0); Platelet Count 54 10^3/uL (150-450); Red Blood Count 3.15 10^6/uL (4.20-5.40); White Blood Count 4.2 10^3/uL (4.0-11.0)
[2025-05-22 11:00] LABS: Magnesium 1.4 mg/dL (1.8-2.4); TSH W/ REFLEX FT4 3.765 uIU/mL (0.358-3.740)
[2025-05-22] MEDS: EPOETIN ALFA 20,000 UNIT/2 ML VIAL 40000 UNIT SUBQ (11:23)
[2025-05-22] MEDS: 0.9 % SODIUM CHLORIDE 250 ML 20 ML IV (11:26)
[2025-05-22] MEDS: POTASSIUM CHLORIDE 20 MEQ in 0.9 % SODIUM CHLORIDE 250 ML 130 MEQ IV (12:33)
[2025-05-22 13:40] VITALS: BP 142/84; PULSE 82; TEMP 36.5; O2SAT 98
[2025-05-22] MEDS: HEPARIN SODIUM (PORCINE) PF LOCK FLUSH 500 UNIT/5 ML SYRINGE IV (13:44)
--- NOTE | 2025-05-22 14:11 | PC.NURSE ---
1138: IV Gaby initiated at this time. Dr. Chester reviews pt.'s labs.
--- NOTE | 2025-05-22 14:12 | PC.NURSE ---
1212: IV Keytruda infused without adverse reaction. Given lunch tray. 1233: KCL 20 meq IVPB initiated at this time as ordered. Pt. up to bathroom Denies c/o or needs.
== END 2025-05-25 23:59 | disposition home or self-care (01) ==
LOC: HEMC 09:45
PROVIDERS: PCP Family Medicine; Visit Provider Internal Medicine Hematology & Oncology
DX: Z51.11 Encounter for antineoplastic chemotherapy (principal); C34.11 Malignant neoplasm of upper lobe, right bronchus or lung; Z51.12 Encounter for antineoplastic immunotherapy; R11.2 Nausea with vomiting, unspecified; D64.81 Anemia due to antineoplastic chemotherapy; C77.1 Secondary and unspecified malignant neoplasm of intrathoracic lymph nodes; C78.7 Secondary malignant neoplasm of liver and intrahepatic bile duct; C79.51 Secondary malignant neoplasm of bone; D64.9 Anemia, unspecified; D70.1 Agranulocytosis secondary to cancer chemotherapy; D69.6 Thrombocytopenia, unspecified; Z79.899 Other long term (current) drug therapy; K90.9 Intestinal malabsorption, unspecified; D50.9 Iron deficiency anemia, unspecified; Z86.16 Personal history of COVID-19; Z90.49 Acquired absence of other specified parts of digestive tract
CPT/HCPCS: 36591; 80053; 82728; 83540; 83550; 83735; 84100; 84439; 84443; 85007; 85025; 85027; 96365; 96367; 96372; 96375; 96413; 96417; G0463; J0185; J0885; J0897; J1100; J1200; J1642; J2405; J2469; J3475; J3480; J9045; J9267; J9271; Q5101

== ENCOUNTER 2025-06-19 09:41 | Outpatient (RCR) | payer MEDICARE, SELFPAY ==
[2025-05-29 10:40] VITALS: BP 135/85; PULSE 94; TEMP 36.6; O2SAT 94
[2025-05-29 11:14] LABS: Hematocrit 34.9 % (36.0-48.0); Hemoglobin 10.9 g/dL (12.0-16.0); Mean Corpuscular HGB Conc 31.2 g/dL (29.9-35.2); Mean Corpuscular Hemoglobin 30.7 pg (26.7-34.0); Mean Corpuscular Volume 98.3 fL (81.0-99.0); Platelet Count 66 10^3/uL (150-450); Red Blood Count 3.55 10^6/uL (4.20-5.40); White Blood Count 4.8 10^3/uL (4.0-11.0)
[2025-05-29 11:28] LABS: Anion Gap 17.9; Blood Urea Nitrogen 13.0 mg/dL (7.0-18.0); Calcium 8.9 mg/dL (8.5-10.1); Carbon Dioxide 21.7 mmol/L (21.0-32.0); Chloride 103 mmol/L (98-107); Estimated GFR (African America 55 (>=60 mL/min/1.73m^2); Estimated GFR (Non-African Ame 45 (>=60 mL/min/1.73m^2); Glucose 156 mg/dL (74-106); Magnesium 1.6 mg/dL (1.8-2.4); Potassium 4.6 mmol/L (3.5-5.1); Sodium 138 mmol/L (136-145)
[2025-05-29 11:41] LABS: Basophils Abs Manual 0.00 10^3/uL (0.00-0.10); Basophils Percent Manual 0.0 % (0.2-2.0); Eosinophils Absolute Manual 0.00 10^3/uL (0.00-0.70); Eosinophils Percent Manual 0.0 % (0.9-7.0); Lymphocytes Absolute Manual 0.76 10^3/uL (1.20-3.80); Lymphocytes Percent Manual 16.0 % (20.5-60.0); Monocytes Absolute Manual 0.57 10^3/uL (0.30-0.80); Monocytes Percent Manual 12.0 % (1.7-12.0); Segmented Neut Absolute Manual 3.45 10^3/uL (1.4-6.5); Segmented Neutrophils % Manual 72.0 (43.0-75.0)
--- NOTE | 2025-05-29 11:42 | PC.NURSE ---
1130: Scrambled eggs and bananas provided per pt request. Labs reviewed with pt. Questions addressed.
[2025-05-29 11:43] LABS: Anisocytosis 1+
[2025-05-29] MEDS: DENOSUMAB 120 MG/1.7 ML VIAL SQ (11:47)
--- NOTE | 2025-05-29 11:49 | PC.NURSE ---
1147: Medicated with Xgeva as directed. No bleeding to inj. site. Tolerates without c/o. Waits for MD visit with Dr. Chester.
--- NOTE | 2025-05-29 11:57 | PC.NURSE ---
1157: Dr. Chester to chairside.
[2025-05-29] MEDS: HEPARIN SODIUM (PORCINE) PF LOCK FLUSH 500 UNIT/5 ML SYRINGE IV (12:09)
[2025-06-05 11:57] VITALS: BP 131/90; PULSE 95; TEMP 35.9; O2SAT 96
[2025-06-05 12:43] LABS: Hematocrit 34.9 % (36.0-48.0); Hemoglobin 11.1 g/dL (12.0-16.0); Immature Granulocytes Abs Auto 0.01 10^3/uL (0.00-0.03); Immature Granulocytes Pct Auto 0.2 % (0.0-0.5); Lymphocytes Absolute Auto 0.7 10^3/uL (1.2-3.8); Mean Corpuscular HGB Conc 31.8 g/dL (29.9-35.2); Mean Corpuscular Hemoglobin 31.1 pg (26.7-34.0); Mean Corpuscular Volume 97.8 fL (81.0-99.0); Platelet Count 131 10^3/uL (150-450); Red Blood Count 3.57 10^6/uL (4.20-5.40); White Blood Count 4.2 10^3/uL (4.0-11.0)
[2025-06-05 13:18] LABS: Alanine Aminotransferase 17 U/L (14-59); Albumin Globulin Ratio 1.0; Albumin Level 3.7 g/dL (3.4-5.0); Alkaline Phosphatase 95 U/L (46-116); Anion Gap 14.3; Aspartate Amino Transferase 12 U/L (15-37); Blood Urea Nitrogen 15.0 mg/dL (7.0-18.0); Calcium 8.1 mg/dL (8.5-10.1); Carbon Dioxide 25.0 mmol/L (21.0-32.0); Chloride 101 mmol/L (98-107); Estimated GFR (African America >60 (>=60 mL/min/1.73m^2); Estimated GFR (Non-African Ame 55 (>=60 mL/min/1.73m^2); Globulin 3.6 g/dL; Glucose 124 mg/dL (74-106); Potassium 3.3 mmol/L (3.5-5.1); Sodium 137 mmol/L (136-145); Total Protein 7.3 g/dL (6.4-8.2)
[2025-06-05] MEDS: HEPARIN SODIUM (PORCINE) PF LOCK FLUSH 500 UNIT/5 ML SYRINGE IV (13:25)
[2025-06-12 10:08] VITALS: BP 109/85; PULSE 91; TEMP 37; O2SAT 96
[2025-06-12 10:52] LABS: Hematocrit 35.4 % (36.0-48.0); Hemoglobin 11.3 g/dL (12.0-16.0); Immature Granulocytes Abs Auto 0.01 10^3/uL (0.00-0.03); Immature Granulocytes Pct Auto 0.2 % (0.0-0.5); Lymphocytes Absolute Auto 0.6 10^3/uL (1.2-3.8); Mean Corpuscular HGB Conc 31.9 g/dL (29.9-35.2); Mean Corpuscular Hemoglobin 31.0 pg (26.7-34.0); Mean Corpuscular Volume 97.3 fL (81.0-99.0); Platelet Count 194 10^3/uL (150-450); Red Blood Count 3.64 10^6/uL (4.20-5.40); White Blood Count 5.0 10^3/uL (4.0-11.0)
[2025-06-12 11:02] LABS: Alanine Aminotransferase 18 U/L (14-59); Albumin Globulin Ratio 0.9; Albumin Level 3.6 g/dL (3.4-5.0); Alkaline Phosphatase 101 U/L (46-116); Anion Gap 11.9; Aspartate Amino Transferase 14 U/L (15-37); Blood Urea Nitrogen 14.0 mg/dL (7.0-18.0); Calcium 8.4 mg/dL (8.5-10.1); Carbon Dioxide 27.9 mmol/L (21.0-32.0); Chloride 101 mmol/L (98-107); Estimated GFR (African America 50 (>=60 mL/min/1.73m^2); Estimated GFR (Non-African Ame 41 (>=60 mL/min/1.73m^2); Globulin 3.8 g/dL; Glucose 141 mg/dL (74-106); Magnesium 1.7 mg/dL (1.8-2.4); Sodium 138 mmol/L (136-145); Total Protein 7.4 g/dL (6.4-8.2)
[2025-06-12 11:07] LABS: Potassium 2.8 mmol/L (3.5-5.1)
[2025-06-12] MEDS: 0.9 % SODIUM CHLORIDE 250 ML 10 ML IV (11:27)
[2025-06-12] MEDS: POTASSIUM CHLORIDE 20 MEQ in 0.9 % SODIUM CHLORIDE 250 ML 130 MEQ IV (11:50)
--- NOTE | 2025-06-12 12:51 | PC.NURSE ---
Tolerating infusion without any issues. Eats 1 high protein shake, 2 sodas, egg salad, vegetable soup and blueberry muffin. Informed patient of need to continue oral potassium as well as returning for potassium infusion. verbalizes understanding
[2025-06-12 14:21] VITALS: BP 121/86; PULSE 95; TEMP 37; O2SAT 95
[2025-06-12] MEDS: HEPARIN SODIUM (PORCINE) PF LOCK FLUSH 500 UNIT/5 ML SYRINGE IV (14:36)
--- NOTE | 2025-06-12 14:45 | PC.NURSE ---
rt chest port deaccessed after flushing with ns and heparin lock flush solution, no bleeding noted, bandaid applied. Tolerated well
[2025-06-14 10:55] VITALS: BP 144/86; PULSE 72; TEMP 36.6; O2SAT 94
[2025-06-14] MEDS: POTASSIUM CHLORIDE 20 MEQ in 0.9 % SODIUM CHLORIDE 250 ML 130 MEQ IV (11:07)
[2025-06-14] MEDS: HEPARIN SODIUM (PORCINE) PF LOCK FLUSH 500 UNIT/5 ML SYRINGE IV (13:10)
--- NOTE | 2025-06-14 14:21 | PC.NURSE ---
1200: Lunch offered, pt. declines. Pt. affect withdrawn and flat. When asked if she wanted to talk or had anything on her mind, she states I'm OK . Encouraged pt. to share feelings and concerns, but pt. repeatedly states feeling ok. 1310: IV KCL infused without s&s of adverse reaction. Port flushed with saline and Heparin flush. Port de-accessed. No bleeding noted. Covered with Bandaid. Pt. tolerates without c/o. Dr. Chester to chairside for MD appt. Discusses palliative care with pt. and pts. niece. Questions addressed. encourages pt. to express feelings on over all situation, but pt relays same I'm OK response. 1400: Pt. given chocolate Ensure supplements to take home. Pt. without c/o needs, or concerns. D/c'd amb. to home.
[2025-06-19 09:59] VITALS: BP 118/79; PULSE 94; TEMP 36.6; O2SAT 95
[2025-06-19 10:15] LABS: Hematocrit 34.2 % (36.0-48.0); Hemoglobin 10.8 g/dL (12.0-16.0); Immature Granulocytes Abs Auto 0.00 10^3/uL (0.00-0.03); Immature Granulocytes Pct Auto 0.0 % (0.0-0.5); Lymphocytes Absolute Auto 0.8 10^3/uL (1.2-3.8); Mean Corpuscular HGB Conc 31.6 g/dL (29.9-35.2); Mean Corpuscular Hemoglobin 31.0 pg (26.7-34.0); Mean Corpuscular Volume 98.3 fL (81.0-99.0); Platelet Count 224 10^3/uL (150-450); Red Blood Count 3.48 10^6/uL (4.20-5.40); White Blood Count 3.6 10^3/uL (4.0-11.0)
[2025-06-19 10:30] LABS: Alanine Aminotransferase 16 U/L (14-59); Albumin Globulin Ratio 0.8; Albumin Level 3.3 g/dL (3.4-5.0); Alkaline Phosphatase 95 U/L (46-116); Anion Gap 13.4; Aspartate Amino Transferase 12 U/L (15-37); Blood Urea Nitrogen 15.0 mg/dL (7.0-18.0); Calcium 8.7 mg/dL (8.5-10.1); Carbon Dioxide 29.6 mmol/L (21.0-32.0); Chloride 99 mmol/L (98-107); Estimated GFR (African America 58 (>=60 mL/min/1.73m^2); Estimated GFR (Non-African Ame 48 (>=60 mL/min/1.73m^2); Globulin 4.0 g/dL; Glucose 154 mg/dL (74-106); Potassium 3.0 mmol/L (3.5-5.1); Sodium 139 mmol/L (136-145); Total Protein 7.3 g/dL (6.4-8.2)
[2025-06-19] MEDS: POTASSIUM CHLORIDE 20 MEQ in 0.9 % SODIUM CHLORIDE 250 ML 130 MEQ IV (10:56)
[2025-06-19] MEDS: HEPARIN SODIUM (PORCINE) PF LOCK FLUSH 500 UNIT/5 ML SYRINGE IV (13:06)
== END 2025-06-24 23:59 | disposition home or self-care (01) ==
LOC: HEMC 09:41
PROVIDERS: PCP Family Medicine; Visit Provider Internal Medicine Hematology & Oncology
DX: Z51.12 Encounter for antineoplastic immunotherapy (principal); C34.11 Malignant neoplasm of upper lobe, right bronchus or lung; R11.2 Nausea with vomiting, unspecified; C77.1 Secondary and unspecified malignant neoplasm of intrathoracic lymph nodes; C78.7 Secondary malignant neoplasm of liver and intrahepatic bile duct; C79.51 Secondary malignant neoplasm of bone; D64.9 Anemia, unspecified; D69.6 Thrombocytopenia, unspecified; D70.1 Agranulocytosis secondary to cancer chemotherapy; Z79.899 Other long term (current) drug therapy; D64.81 Anemia due to antineoplastic chemotherapy; D50.9 Iron deficiency anemia, unspecified; K90.9 Intestinal malabsorption, unspecified; Z86.16 Personal history of COVID-19; Z90.710 Acquired absence of both cervix and uterus; R05.3 Chronic cough
CPT/HCPCS: 36415; 36591; 80048; 80053; 83615; 83735; 85007; 85025; 85027; 96365; 96366; 96367; 96372; 96413; 96523; G0463; J0897; J1642; J3480; J9271

== ENCOUNTER 2025-07-24 10:12 | Outpatient (RCR) | payer MEDICARE, SELFPAY ==
[2025-06-27 10:15] LABS: Hematocrit 35.8 % (36.0-48.0); Hemoglobin 11.3 g/dL (12.0-16.0); Immature Granulocytes Abs Auto 0.01 10^3/uL (0.00-0.03); Immature Granulocytes Pct Auto 0.2 % (0.0-0.5); Lymphocytes Absolute Auto 1.0 10^3/uL (1.2-3.8); Mean Corpuscular HGB Conc 31.6 g/dL (29.9-35.2); Mean Corpuscular Hemoglobin 30.7 pg (26.7-34.0); Mean Corpuscular Volume 97.3 fL (81.0-99.0); Platelet Count 274 10^3/uL (150-450); Red Blood Count 3.68 10^6/uL (4.20-5.40); White Blood Count 5.4 10^3/uL (4.0-11.0)
[2025-06-27 10:21] VITALS: BP 134/91; PULSE 78; TEMP 36.7; O2SAT 95
[2025-06-27 10:29] LABS: Alanine Aminotransferase 16 U/L (14-59); Albumin Globulin Ratio 0.8; Albumin Level 3.4 g/dL (3.4-5.0); Alkaline Phosphatase 100 U/L (46-116); Anion Gap 15.1; Aspartate Amino Transferase <5 U/L (15-37); Blood Urea Nitrogen 17.0 mg/dL (7.0-18.0); Calcium 8.7 mg/dL (8.5-10.1); Carbon Dioxide 26.1 mmol/L (21.0-32.0); Chloride 104 mmol/L (98-107); Estimated GFR (African America 57 (>=60 mL/min/1.73m^2); Estimated GFR (Non-African Ame 47 (>=60 mL/min/1.73m^2); Globulin 4.3 g/dL; Glucose 101 mg/dL (74-106); Potassium 4.2 mmol/L (3.5-5.1); Sodium 141 mmol/L (136-145); Total Protein 7.7 g/dL (6.4-8.2)
[2025-06-27] MEDS: DENOSUMAB 120 MG/1.7 ML VIAL SQ (11:04)
[2025-06-27] MEDS: HEPARIN SODIUM (PORCINE) PF LOCK FLUSH 500 UNIT/5 ML SYRINGE IV (11:06)
[2025-07-03 10:16] VITALS: BP 134/78; PULSE 78; TEMP 36.6; O2SAT 95
[2025-07-03 10:48] LABS: Hematocrit 34.8 % (36.0-48.0); Hemoglobin 11.3 g/dL (12.0-16.0); Immature Granulocytes Abs Auto 0.04 10^3/uL (0.00-0.03); Immature Granulocytes Pct Auto 0.8 % (0.0-0.5); Lymphocytes Absolute Auto 0.9 10^3/uL (1.2-3.8); Mean Corpuscular HGB Conc 32.5 g/dL (29.9-35.2); Mean Corpuscular Hemoglobin 31.6 pg (26.7-34.0); Mean Corpuscular Volume 97.2 fL (81.0-99.0); Platelet Count 285 10^3/uL (150-450); Red Blood Count 3.58 10^6/uL (4.20-5.40); White Blood Count 5.3 10^3/uL (4.0-11.0)
[2025-07-03 10:53] LABS: Alanine Aminotransferase 21 U/L (14-59); Albumin Globulin Ratio 0.8; Albumin Level 3.3 g/dL (3.4-5.0); Alkaline Phosphatase 99 U/L (46-116); Anion Gap 13.6; Aspartate Amino Transferase 17 U/L (15-37); Blood Urea Nitrogen 27.0 mg/dL (7.0-18.0); Calcium 9.0 mg/dL (8.5-10.1); Carbon Dioxide 28.8 mmol/L (21.0-32.0); Chloride 104 mmol/L (98-107); Estimated GFR (African America 57 (>=60 mL/min/1.73m^2); Estimated GFR (Non-African Ame 47 (>=60 mL/min/1.73m^2); Globulin 4.2 g/dL; Glucose 115 mg/dL (74-106); Potassium 4.4 mmol/L (3.5-5.1); Sodium 142 mmol/L (136-145); Total Protein 7.5 g/dL (6.4-8.2)
[2025-07-03] MEDS: 0.9 % SODIUM CHLORIDE 250 ML 10 ML IV (11:00)
[2025-07-03] MEDS: HEPARIN SODIUM (PORCINE) PF LOCK FLUSH 500 UNIT/5 ML SYRINGE IV (12:05)
[2025-07-03 12:24] VITALS: BP 122/78; PULSE 97; TEMP 36.6; O2SAT 93
[2025-07-24 10:15] VITALS: BP 117/79; PULSE 75; TEMP 35.8; O2SAT 95
[2025-07-24 10:42] LABS: Hematocrit 34.5 % (36.0-48.0); Hemoglobin 11.0 g/dL (12.0-16.0); Immature Granulocytes Abs Auto 0.03 10^3/uL (0.00-0.03); Immature Granulocytes Pct Auto 0.4 % (0.0-0.5); Lymphocytes Absolute Auto 1.0 10^3/uL (1.2-3.8); Mean Corpuscular HGB Conc 31.9 g/dL (29.9-35.2); Mean Corpuscular Hemoglobin 30.6 pg (26.7-34.0); Mean Corpuscular Volume 96.1 fL (81.0-99.0); Platelet Count 201 10^3/uL (150-450); Red Blood Count 3.59 10^6/uL (4.20-5.40); White Blood Count 7.0 10^3/uL (4.0-11.0)
--- NOTE | 2025-07-24 11:05 | PC.NURSE ---
1100: Dr. Chester to chairside for MD visit.
[2025-07-24 11:09] LABS: Alanine Aminotransferase 12 U/L (14-59); Albumin Globulin Ratio 0.7; Albumin Level 3.1 g/dL (3.4-5.0); Alkaline Phosphatase 124 U/L (46-116); Anion Gap 11.5; Aspartate Amino Transferase 14 U/L (15-37); Blood Urea Nitrogen 9.0 mg/dL (7.0-18.0); Calcium 8.7 mg/dL (8.5-10.1); Carbon Dioxide 29.7 mmol/L (21.0-32.0); Chloride 103 mmol/L (98-107); Estimated GFR (African America >60 (>=60 mL/min/1.73m^2); Estimated GFR (Non-African Ame 51 (>=60 mL/min/1.73m^2); Globulin 4.2 g/dL; Glucose 125 mg/dL (74-106); Potassium 4.2 mmol/L (3.5-5.1); Sodium 140 mmol/L (136-145); Total Protein 7.3 g/dL (6.4-8.2)
[2025-07-24 11:17] LABS: Magnesium 1.8 mg/dL (1.8-2.4); TSH W/ REFLEX FT4 6.444 uIU/mL (0.358-3.740)
--- NOTE | 2025-07-24 11:27 | XR_ITS ---
The [address] [address] Patient Name: JASON DE LA ROSA MRN: [id number] date: 1955 Sex: F Assigned Patient Location: [facility] Current Patient Location: [facility] Accession/Order Number: [id number] Exam Date: 07/24/2025 11:32 Report Date: 07/24/2025 12:47 At the request of: MIYA ALAN MD Procedure: XR chest 2V PA AND LATERAL CHEST: CLINICAL HISTORY: Left shoulder pain. Right lung cancer. COMPARISON: CT 04/12/2025 and chest x-ray 08/14/2024 An Emnuna-g-Dmqh catheter is again visualized on the right. There is still a moderate to large size right pleural effusion. Underlying basilar consolidation is possible. The masslike area in the right suprahilar region appears to be decreasing in size. The left lung remains clear. The visualized portions of the cardiac silhouette are stable. There is an osteoblastic lesion at the lateral left second rib is again seen. There are also osteoblastic vertebral lesions, largest at L1. XR/XR chest 2V IMPRESSION: CONTINUED RIGHT-SIDED PLEURAL-PARENCHYMAL CHANGES. COMPARISON TO THE MOST RECENT STUDY IS SLIGHTLY LIMITED BY DIFFERENCES IN MODALITY AND POSITIONING. SUSPECTED DECREASING SIZE OF RIGHT SUPRAHILAR MASSLIKE AREA PRESUMED TO BE PATIENT'S KNOWN NEOPLASM. OSTEOBLASTIC METASTASES. Impression dictated by: Yasmin Maier M.D. 07/24/2025 12:47 PM Dictation Location: [place] [address] Electronically authenticated by: [id number] Y Date: 07/24/2025 12:47
[2025-07-24] MEDS: DENOSUMAB 120 MG/1.7 ML VIAL SQ (11:44)
[2025-07-24] MEDS: 0.9 % SODIUM CHLORIDE 250 ML 20 ML IV (11:48)
[2025-07-24] MEDS: HEPARIN SODIUM (PORCINE) PF LOCK FLUSH 500 UNIT/5 ML SYRINGE IV (12:29)
[2025-07-24 12:30] VITALS: BP 128/74; PULSE 77; TEMP 36; O2SAT 96
--- NOTE | 2025-07-24 13:45 | PC.NURSE ---
1144: Medicated with Xgeva as directed. Pt. tolerates without c/o.
--- NOTE | 2025-07-24 13:46 | PC.NURSE ---
1153: IV Keytruda initiated at this time. Pt. without c/o or needs. Lunch tray provided. 1230: Infusion completed without s&s of adverse reaction. VSS. Port flushed with saline and Heparin flush. Port de-accessed. Band aid applied over site. Pt. tolerates without c/o. D/c'd amb. to home.
== END 2025-07-25 23:59 | disposition home or self-care (01) ==
LOC: HEMC 10:12
PROVIDERS: PCP Family Medicine; Visit Provider Internal Medicine Hematology & Oncology
DX: Z51.11 Encounter for antineoplastic chemotherapy (principal); C34.11 Malignant neoplasm of upper lobe, right bronchus or lung; R11.2 Nausea with vomiting, unspecified; C77.1 Secondary and unspecified malignant neoplasm of intrathoracic lymph nodes; C78.7 Secondary malignant neoplasm of liver and intrahepatic bile duct; C79.51 Secondary malignant neoplasm of bone; D64.9 Anemia, unspecified; D69.6 Thrombocytopenia, unspecified; D70.1 Agranulocytosis secondary to cancer chemotherapy; Z79.899 Other long term (current) drug therapy; D64.81 Anemia due to antineoplastic chemotherapy; D50.9 Iron deficiency anemia, unspecified; K90.9 Intestinal malabsorption, unspecified
CPT/HCPCS: 36415; 36591; 71046; 80053; 83735; 84439; 84443; 85025; 96372; 96413; G0463; J0897; J1642; J9271